=== PATIENT | female | born 1950 | race Caucasian/White ===

== ENCOUNTER 2020-02-12 08:08 | Inpatient (IN) | payer MEDICAID, SELFPAY ==
[2020-02-12] VITALS (32 sets, daily range): BP systolic 136–226; BP diastolic 64–112
[~2020-02-12] VITALS: Ht 162.6 cm; Wt 56.2 kg
--- NOTE | 2020-02-12 08:10 | NUR ---
Pt assessed in lobby and triaged at bedside. Pt has shortness and breathe with labored breathing. MD made aware of pt status.
--- NOTE | 2020-02-12 08:11 | NUR ---
Patient ambulated to bed 2. RN evaluating patient at bedside.
--- NOTE | 2020-02-12 08:11 | NUR ---
Pt triaged by me without proper PPE. Simple Mask and Gloves were worn.
--- NOTE | 2020-02-12 08:14 | NUR ---
Dr. Ramsey is evaluating the patient at bedside.
--- NOTE | 2020-02-12 08:15 | NUR ---
Respiratory therapist is evaluating the patient at bedside.
--- NOTE | 2020-02-12 08:19 | NUR ---
PT TO ER BED 2. KRISTAL FRYE PPE-SIMPLE MASK AND GLOVES, PT IN SIMPLE MASK.
[2020-02-12] MEDS ORDERED: ALBUTEROL HFA MDI 90 MCG/ACTUATION 8 GM INH ONE (08:20)
--- NOTE | 2020-02-12 08:25 | NUR ---
SECOND IV ESTABLISHED, 18 G LAC
--- NOTE | 2020-02-12 08:27 | NUR ---
BLOOD SENT TO LAB, 2 BLOOD FOR C&S SENT TO LAB, COVID-SWAB/INFUL/RVS DONE-SENT TO LAB.
--- NOTE | 2020-02-12 08:35 | NUR ---
EKG PERFORMED AT BEDSIDE
--- NOTE | 2020-02-12 08:45 | NUR ---
Chao samayoa in ED - 02/12/20 at 1356 by MEDRJJ PT TO ER BED 2. KRISTAL FRYE PPE-SIMPLE MASK AND GLOVES, PT IN SIMPLE MASK.
--- NOTE | 2020-02-12 08:46 | NUR ---
Shortness of breathe since yesterday with cough and runny nose. Pt O2 saturation at 59% on room air. MD made aware.Pt awake , alert, afibrile , ambulatory with steady gait , sce , decrease bs blf.cold clammy skin . Allergies: Unattainable Med hx: DM and HTN
[2020-02-12 08:50] LABS: BASOPHILS # (AUTO) 0.1 K/uL (0.00-0.22); EOSINOPHILS # (AUTO) 0.2 K/uL (0-0.4); EOSINOPHILS % (AUTO) 2.8 % (0.0-4.0); HEMATOCRIT 32.9 % (36-48); HEMOGLOBIN 10.8 g/dL (12.0-16.0); LYMPHOCYTES % (AUTO) 28.2 % (20.5-51.1); MEAN CORPUSCULAR HEMOGLOBIN 29 pg (27-31); MEAN CORPUSCULAR HGB CONC 33 g/dL (33-37); MONOCYTES # (AUTO) 0.4 K/uL (0.8-1.0); MONOCYTES % (AUTO) 5.9 % (1.7-9.3); NEUTROPHILS # (AUTO) 4.4 K/uL (1.8-7.7); NEUTROPHILS % (AUTO) 62.1 % (42.2-75.2); PLATELET COUNT (AUTO) 243 K/uL (140-450); RED BLOOD CELL COUNT(AUTO) 3.78 MIL/uL (4.20-5.40); RED CELL DISTRIBUTION WIDTH 13.7 % (11.6-13.7); WHITE BLOOD COUNT (AUTO) 7.1 K/uL (4.8-10.8)
[2020-02-12] MEDS ORDERED: ASPIRIN 81 MG TAB.CHEW PO ONE (08:55)
[2020-02-12] MEDS ORDERED: NITROGLYCERIN 2% 1 GM PKT TP ONE (08:55)
--- NOTE | 2020-02-12 08:55 | NUR ---
RT LUCINDA PUT PT BACK ON NRB 100%
--- NOTE | 2020-02-12 08:55 | NUR ---
rt at bedside .
[2020-02-12 09:01] LABS: ANION GAP 13.1 (8-16); C-REACTIVE PROTEIN QUANT 0.2 mg/dL (0.0-0.9); CARBON DIOXIDE 26.9 mmol/L (21-32); CREATININE 2.2 mg/dL (0.6-1.3)
[2020-02-12] MEDS ORDERED: cefTRIAXone 1,000 MG VIAL ONE (09:03)
[2020-02-12 09:06] LABS: LACTATE DEHYDROGENASE 291 U/L (81-234)
[2020-02-12 09:07] LABS: ALBUMIN 2.8 g/dL (3.4-5.0); TOTAL BILIRUBIN 0.6 mg/dL (0.0-1.0)
--- NOTE | 2020-02-12 09:10 | NUR ---
PT WAS PLACED ON BIPAP DUE TO NOT TOLERATING NRB AND O2 SAT OF 85% SETTINGS 10/5 RR16 FIO2 100% ALARMS ON AND AUDIBLE AND AMBU BAG AT SIDE OF BIPAP AND BIPAP IS PLUGGED INTO RED OUTLET, B\S ARE WHEEZING BILATERALLY. INFORMED ABOUT PLACING PT ON BIPAP
[2020-02-12 09:17] LABS: PROTHROMBIN TIME 9.6 secs (10.8-13.4)
[2020-02-12 09:28] LABS: RSV NEGATIVE (NEGATIVE)
[2020-02-12] MEDS ORDERED: FUROSEMIDE 40 MG/4 ML VIAL IVP SCH (09:35)
[2020-02-12] MEDS ORDERED: FUROSEMIDE 20 MG/2 ML VIAL IVP ONE (09:39)
--- NOTE | 2020-02-12 09:52 | NUR ---
fc inserted by michelle borden hot metal charger jeni informed and aware.
[2020-02-12 10:08] LABS: APPEARANCE,URINE CLEAR (CLEAR); BILIRUBIN,URINE NEGATIVE (NEGATIVE); BLOOD, URINE 2+ (NEGATIVE); COLOR,URINE YELLOW (YELLOW); LEUKOCYTE ESTERASE ,URINE NEGATIVE (NEGATIVE); NITRITE, URINE NEGATIVE (NEGATIVE); PH,URINE 5.5 (5.0-9.0); UGLUCOSE 1+ (NEGATIVE)
[2020-02-12] MEDS ORDERED: HYDROcodone/APAP 5/325 MG 1 TAB TAB PO PRN (10:10)
[2020-02-12] MEDS ORDERED: DOCUSATE SODIUM 100 MG GELCAP PO PRN (10:10)
[2020-02-12] MEDS ORDERED: ONDANSETRON 4 MG/2 ML VIAL IM/IVP PRN (10:10)
[2020-02-12] MEDS ORDERED: LORazepam 2 MG/ML VIAL IM/IVP PRN (10:10)
--- NOTE | 2020-02-12 10:10 | NUR ---
dr calhoun informed and aware for initial drain fo fc insertion which is at 200ml.
[2020-02-12] MEDS ORDERED: ALBUTEROL HFA MDI 90 MCG/ACTUATION 8 GM INH PRN (10:15)
--- NOTE | 2020-02-12 10:15 | NUR ---
dr calhoun at bedside reevaluating pt.
[2020-02-12] MEDS ORDERED: hydrALAZINE 20 MG/ML VIAL IVP PRN (10:40)
[2020-02-12 10:45] LABS: RBC,URINE NONE SEEN /HPF (0-5); WBC,URINE NONE SEEN /HPF (0-5)
[2020-02-12] MEDS ORDERED: FUROSEMIDE 20 MG/2 ML VIAL IVP SCH ×2 (10:49→21:00)
--- NOTE | 2020-02-12 11:06 | NUR ---
labs at bedside.
--- NOTE | 2020-02-12 11:47 | NUR ---
DISCHARGE PLANNING: THIS IS A 69 Y/O FEMALE PATIENT FROM HOME, WHO CAME IN DUE TO SLIGHT COUGH, RUNNY NOSE, CHEST PAIN AND SHORTNESS OF BREATH. PAST MEDICAL HISTORY INCLUDE DIABETES AND HYPERTENSION. INITIAL DIAGNOSIS OF ACUTE RESPIRATORY FAILURE. CURRENT LABS INCLUDE WBC 7.1, H/H 10.8/32.9, NA/K 141/4.0, BUN/CREA 50/2.2 AND LACTIC ACID 3.5. NEGATIVE FOR INF A AND B. RSV ANTIGEN NEGATIVE. COVID 19 PENDING. URINE AND BLOOD CS PENDING. CXR ON ADMISSION SHOWED CARDIOMEGALY WITH PULMONARY VASCULAR CONGESTION AND INTERSTITIAL EDEMA, SUSPECTED TRACE RIGHT PLEURAL EFFUSION. ON ROCEPHIN. CARDIO AND PULMO CONSULTS IN PLACE - NOT SEEN YET. DC PLAN PENDING ON PATIENT'S RESPONSE TO TREATMENT. Addendum: 02/13/20 at 1313 by Ximena Mckeon STILL IN ICU. ON OXYMIZER AT 4LPM, O2 SAT 93%. CURRENT LABS INCLUDE WBC 8.4, H/H 9.9/29.3, NA/K 142/3.7, BUN/CREA 50/2.0 AND ANION GAP 16.1. POSITIVE FOR COVID 19. ON AZITHROMYCIN, LASIX IV AND INSULIN SLIDING SCALE. PULMO, CARDIO, ID AND NEPHRO CONSULTS IN PLACE. DC PLAN PENDING ON PATIENT'S RESPONSE TO TREATMENT. Addendum: 02/17/20 at 1608 by Ximena Mckeon CM STILL IN ICU. ON HIGH FLOW O2, FIO2 70%. O2 SAT 95%. CURRENT LABS INCLUDE WBC 10.5, H/H 8.7/25.6, NA/K 133/4.0, BUN/CREA 85/3.8 AND ALB 1.8. ON ROCEPHIN AND SOLU MEDROL. CARDIO, PULMO, ID, SURGICAL AND NEPHRO CONSULTS IN PLACE. HAD HD YESTERDAY. DC PLAN PENDING ON PATIENT'S RESPONSE TO TREATMENT. Addendum: 02/19/20 at 0858 by Ximena Mckeon CM ORALLY INTUBATED, FIO2 40%, O2 SAT 100%. SEDATED WITH MORPHINE AND VERSED. CURRENT LABS INCLUDE WBC 12.7, H/H 10.6/31.9, NA/K 133/4.0. BUN/CREA 110/3.9 AND TROP 0.180. COVID POSITIVE. ON ROCEPHIN. HAD DIALYSIS YESTERDAY. PULMO, NEPHRO, CARDIO AND ID CONSULTS IN PLACE. DC PLAN PENDING ON PATIENT'S RESPONSE TO TREATMENT. Addendum: 02/21/20 at 1544 by Ximena Mckeon CM STILL IN ICU. ORALLY INTUBATED TO VENT, FIO2 45%, O2 SAT 88%. SEDATED WITH MIDAZOLAM AND MORPHINE DRIP. ON DOPAMINE DRIP, BP 100/55. CURRENT LABS INCLUDE WBC 13.8, H/H 8.7/26.6, NA/K 131/3.7, BUN/CRE 117/5.5 AND ALB 1.7. ON ROCEPHIN. PULMO, NEPHRO, CARDIO AND ID IN PLACE. FOR HD TODAY. DC PLAN PENDING ON PATIENT'S RESPONSE TO TREATMENT. Addendum: 02/24/20 at 0903 by Ximena Mckeon CM STILL IN ICU. ORALLY INTUBATED FIO2 45%, O2 SAT 94%. SEDATED WITH VERSED AND MORPHINE DRIPS. ON HEPARIN DRIP. CURRENT LABS INCLUDE WBC 19.9, H/H 8.6/26.1, NA/K 133/3.2 AND BUN/CREA 68/4.3 AND ALB 1.4. CURRENT CXR SHOWED NEW/WORSENED LOWER LUNG CONSOLIDATION. ON LEVAQUIN. CARDIO, GI, SURGERY, ID PULMO AND NEPHRO CONSULTS INN PLACE. DC PLAN PENDING ON PATIENT'S RESPONSE TO TREATMENT. Addendum: 02/25/20 at 0955 by Ximena Mckeon CM STILL IN ICU. ORALLY INTUBATED TO VENT FIO2 55%, O2 SAT 92%. SEDATED WITH MORPHINE AND VERSED. CURRENT LABS INCLUDE WBC 16.3, H/H 8.3/24.7, NA/K 134/3.8, BUN/CREA 94/5.7 AND ALB 1.2. D DIMER 2230. ON HEPARIN DRIP APTT 63.3. ON SOLU MEDROL, FLUCONAZOLE AND LEVOFLOXACIN. CURRENT CX SHOWED NO SIGNIFICANT CHANGE IN THE RIGHT INFILTRATE BUT WORSENING LEFT INFILTRATES. PRONING DONE LAST NIGHT, TOLERATED WELL. CARDIO, PULMO, ID, NEPHRO, SURGICAL AND GI CONSULTS IN PLACE. DC PLAN PENDING ON PATIENT'S RESPONSE TO TREATMENT. Addendum: 02/26/20 at 1128 by Ximena Mckeon CM STILL IN ICU. ORALLY INTUBATED, FIO2 50%-O2 SAT 98%. SEDATED WITH VERSED AND MORPHINE DRIPS. CURRENT LABS INCLUDE WBC 18.8, H/H 8.5/25.9, NA/K 139/4.4, BUN/CREA 75/4.6, C REACTIVE PROTEIN 31.5 AND ALB 1.3. D DIMER 2310, PTT 59.9. ON FLUCONAZOLE, SOLU MEDROL AND LEVOFLOXACIN. CURRENT CXR SHOWED BILATERAL INFILTRATES UNCHANGED. PULMO, CARDIO, ID, NEPHRO AND SURGICAL CONSULTS IN PLACE. HAD HD YESTERDAY. DC PLAN PENDING ON PATIENT'S RESPONSE TO TREATMENT. Addendum: 02/27/20 at 1023 by Ximena Mckeon ETT TO VENT, FIO2 60%, O2 SAT 98%. SEDATED WITH VERSED AND MORPHINE. CURRENT ;ABS INCLUDE WBC 18.2, H/H 7.9/24.6, NA/K 137/4.8, BUN/CREA 140/6.0, ALB 1.3, CRP 11.4 AND LACTIC ACID 2.2. D DIMER 1660. GLU 583-ON LANTUS. ON HEPARIN DRIP-APTT 49.7. ON SOLU MEDROL, LEVOFLOXACIN, FLUCONAZOLE, PROTONIX. CURRENT CXR SHOWED NO SIGNIFICANT INTERVAL CHANGE IN DIFFUSE INTERSTITIAL EDEMA, INFILTRATE OR ARDS. PERSISTENT SUPERIMPOSED PERIHILAR AND BIBASILAR AIRSPACE EDEMA VS INFILTRATE. SUSPECTED TRACE LEFT PLEURAL EFFUSION. SEEN BY NEPHRO - HD TODAY. CARDIO, GI, SURGERY, ID PULMO AND NEPHRO CONSULTS IN PLACE. DC PLANNING PENDING ON PATIENT'S RESPONSE TO TREATMENT. Addendum: 02/28/20 at 1338 by Ximena Mckeon STILL ORALLY INTUBATED, FIO2 70%-O2 SAT 98%. STILL SEDATED WITH VERSED AND MORPHINE DRIPS. CURRENT LABS INCLUDE WBC 21.9, H/H 7.3/22.5, NA/K 140/3.4, BUN/CREA 98/4.0, PHOS/MAG 1.5/1.5, ALB 1.3, D DIMER 1010 AND APTT 66.1 ON HEPARIN DRIP. ON FLUCONAZOLE AND LEVOFLOXACIN. CURRENT CXR SHOWED INCREASING BILATERAL INFILTRATES. PULMO, CARDIO, ID, NEPHRO AND SURGICAL CONSULTS IN PLACE. DC PLAN PENDING ON PATIENT'S RESPONSE TO TREATMENT. 1130: CONTACTED PATIENT'S DAUGHTER SARAHY HARRY AT [phone] TO DISCUSS CODE STATUS, SHE STATED SHE WANTED EVERYTHING TO DONE. DR. FRAIRE MADE AWARE. Addendum: 03/02/20 at 1633 by Karuna Shen DC PLANNING: DR FARLEY CANCELED TUNNELED CATH PLACEMENT DUE TO ELEVATED WBC 13.7 COUNT 2 UNITS PRBC GIVEN , H/H 10.3/30.9 PRONE POSITION . ABDOMINAL US SHOWED CHOLELITHIASIS WITHOUT SONOGRAPHIC EVIDENCE OF ACUTE CHOLECYSTITIS . CONTINUE IV ABX LEVAQUIN AND WOUND CARE . DC PLAN PER RECOMMENDATIONS CM TO FOLLOW Addendum: 03/03/20 at 1002 by Ximena Mckeon STILL IN ICU, ORALLY INTUBATED. ETT TO VENT FIO2 70%, O2 SAT 96%. SEDATED WITH PROPOFOL. CURRENT LABS INCLUDE WBC 16.2, H/H 10.0/30, NA/K 138/3.9, BUN/CREA 129/6.4, MAG 2.5 AND ALB 3.1. ON HEPARIN DRIP APTT 57.1. D DIMER >5000. ON LEVAQUIN AND FLUCONAZOLE. PENDING AGUILAR PLACEMENT BY DR. FARLEY. GAURAV PLAN PENDING ON PATIENT'S RESPONSE TO TREATMENT. Addendum: 03/04/20 at 1017 by Ximena Mckeon CM STILL IN ICU. ORALLY INTUBATED TO VENT FIO2 70%, O2 SAT 98%. SEDATED WITH PROPOFOL. CURRENT LABS INCLUDE WBC 16.4, H/H10.1/30.5, NA/K 139/3.5, BUN/CREA 79/4.4 AND ALB 1.5. APTT 89.3 AND D DIMER 4970. RECEIVED CONVALESCENT PLASMA TRANSFUSION LAST NIGHT. FOR HD CATH PLACEMENT TODAY BY DR. FARLEY. DC PLAN PENDING ON PATIENT'S RESPONSE TO TREATMENT. Addendum: 03/05/20 at 1017 by Ximena Mckeon CM STILL IN ICU. ORALLY INTUBATED TO VENT, FIO2 80%, O2 SAT 94%. SEDATED WITH PROPOFOL. CURRENT LABS INCLUDE WBC 14.1, H/H 10.8/32.2, NA/K 137/3.9, BUN/CREA 33/2.6 AND ALB 1.5. ON HEPARIN RESTARTED TODAY - APTT 89.3 AND D DIMER >5000. SEEN BY NEPHRO - JOSE CARLOS DUE TO ATN, NO RENAL RECOVERY OF YET, WILL NEED DIALYSIS TOMORROW. SEEN BY ID - TO CONTINUE CURRENT ANTIBIOTIC, PENDING REPEAT CS. SEEN BY PULMO - TO CONTINUE MECHANICAL VENTILATOR SUPPORT. NEGATIVE FOR STOOL OCCULT BLOOD. SPUTUM CS PENDING. DC PLAN PENDING ON PATIENT'S RESPONSE TO TREATMENT. Addendum: 03/06/20 at 0901 by Ximena Mckeon STILL IN ICU. ORALLY INTUBATED, FIO2 80%, O2 94%. SEDATED WITH PROPOFOL DRIP. CURRENT LABS INCLUDE WBC 16.8, H/H 10.6/32.4, NA/K 137/4.2, 59/4.0 AND ALB 1.5. D DIMER >5000 AND APTT 61.3. ON HEPARIN DRIP. ON ZOSYN. SEEN BY NEPHRO - FOR DIALYSIS TODAY. SEEN BY PULMO - CONTINUE PRONING. SEEN BY ID - PROGNOSIS REMAINS GUARDED. Addendum: 03/08/20 at 1353 by Ximena Mckeon PER DR. ADAMS, CODE STATUS HAVE BEEN DISCUSSED WITH THE DAUGHTER. HOWEVER PATIENT'S DAUGHTER HAVE NOT DECIDED YET AND WILL DISCUSS WITH HER SIBLINGS AND WILL LET US KNOW. Addendum: 03/09/20 at 0916 by Ximena Mckeon STILL IN ICU. ORALLY INTUBATED TO VENT, FIO2 50% AND O2 94%. SEDATED WITH PROPOFOL DRIP. CURRENT LABS INCLUDE WBC 11.3, H/H 9.1/27.4, NA/K 127/5.2, BUN/CREA 93/5.6, PHOS 10.5, D DIMER 3510-ON HEPARIN DRIP. ON ZOSYN, METHYLPREDNISOLONE. FOR HD TODAY. Addendum: 03/10/20 at 1455 by Johanna Johnson CM Patient discussed during multidisciplinary rounds. Pt remains intubated/sedated, blood pressure is high; family still needs to decide between trach/PEG and withdrawal of care. 14:30 - Rcd call to pt's daughter, Sarahy Harry, to follow-up. Dtr is German speaking; had a lengthy conversation with daughter about the situation. MARY CARMEN/HOLLI addressed all questions asked by daughter, provide supportive listening and validated her feelings and concerns. Dtr stated this was very unexpected and the family is not ready to let the patient go therefore they have agreed for trach and PEG. Dtr was informed the pt will need subacute placement after procedures; dtr is agreeable. KIMBERLEY provided contact info should she have any further questions. EVELIN Minor Ext [phone] Addendum: 03/17/20 at 1123 by Ximena Mckeon CM STILL IN ICU. ORALLY INTUBATED, FIO2 65%, O2 SAT 94%. CURRENT LABS INCLUDE WBC 25.0, H/H 8.8/25.9, NA/K 136/3.7, BUN/CREA 80/3.2 AND ALB 1.5. COVID PCR TESTING PENDING. E COLI OF THE URINE. STILL ON METHYLPREDNISOLONE, MEROPENEM AND VANCOMYCIN. ON CPAP TRIAL. SEEN BY KEV-WILL POSSIBLE TRACH PENDING COVID PCR RESULTS. Addendum: 03/18/20 at 1042 by Ximena Mckeon CM ORALLY INTUBATED TO VENT, FIO2 50%, O2 SAT 93%. CURRENT LABS INCLUDE WBC 21.3, H/H 7.5/22.7, NA/K 136/4.1, BUN/CREA 150/4.5, ALB 1.5. ON METHYLPREDNISOLONE, MEROPENEM AND VANCOMYCIN. FOR HD TODAY. COVID TEST REMAINS POSITIVE ON 03/17. DC PLAN PENDING ON PATIENT'S RESPONSE TO TREATMENT. Addendum: 03/19/20 at 1144 by Ximena Mckeon CM REMAINS ORALLY INTUBATED TO VENT, FIO2 50%, O2 SAT 93%. KEV RECOMMENDED TRACH AND PEG PLACEMENT AT THIS TIME DUE TO O2 SUPPORT AT FIO2 50%. Addendum: 03/20/20 at 1132 by Ximena Mckeon CM S/P TRACHEOSTOMY AND PEG PLACEMENT 03/19/[address] PLUMMER STARTED ON TUBE FEEDING. Addendum: 03/20/20 at 1424 by Ximena Mckeon LATE ENTRY: RECEIVED AN ORDER FOR [facility]. [facility] MADE AWARE. REFERRAL SENT TO WILL. 5129: RECEIVED A CALL FROM [facility] STATING THAT THEY DO NOT ACCEPT MEDICAL PATIENT'S AT THIS TIME. DR. FRAIRE MADE AWARE. Addendum: 03/23/20 at 1101 by Ximena Mckeon CM TRACH TO VENT, FIO2 55%, O2 SAT 99%. CURRENT LABS INCLUDE WBC 20.2, H/H 6.8/20.6, NA/K 136/3.2 AND CRP 3.5. ON MEROPENEM, VANCOMYCIN AND SOLU MEDROL. ON BILATERAL SOFT WRIST RESTRAINTS. CONTACTED [facility] AT [phone], NO ANSWER. LEFT MESSAGE. Addendum: 03/23/20 at 1223 by Ximena Mckeon CM RECEIVED A CALL BACK FROM [facility], STATING THAT THEY ONLY ACCEPT PATIENTS FROM [facility]. HOWEVER, SHE WILL REACH OUT TO THEIR DON AND WILL GET BACK TO ME ONCE SHE RECEIVE ANY INFO. CONTACTED [facility] [phone], ABLE TO SPEAK TO DERICK ELIDA. SHE STATED THAT THEY DO NOT ACCEPT VENT PATIENTS. Addendum: 03/23/20 at 1503 by Ximena Mckeon PER [facility], UNABLE TO ACCEPT STRAIGHT MEDICAL PATIENTS, ONLY WITH ETT AND NOT WITH TRACH. PER LEYDI PAIZ, THEY DO NOT HAVE A SUB ACUTE. PER [facility], NOT ACCEPTING COVID POSITIVE PATIENTS. Addendum: 03/23/20 at 1558 by Ximena Mckeon PER AMANDA [facility]ICIO [facility], THEY ARE NOT ABLE TO ACCEPT COVID POSITIVE PATIENTS. PER JONATHAN [facility]ICIO [facility], NO SUBACUTE BED AT THIS TIME. PER CONCHIS MAURICIO [facility], SHE WILL REACH OUT TO THEIR SISTER FACILITY IF CAN ACCEPT COVID POSITIVE PATIENTS. Addendum: 03/23/20 at 1621 by Ximena Mckeon CM PER CONCHIS [facility], NO COVID BEDS IN THEIR SUB ACUTE. PER RAJWINDER CHURCH AND VERNA GREGORY, SHE WILL CHECK WITH THEIR SISTER FACILITY [place] IF THEY ARE ABLE TO ACCEPT COVID POSITIVE PATIENT HOWEVER THEY HAVE A WAITING LIST. PER KELLY [facility], THEY ARE NOT ACCEPTING COVID POSITIVE PATIENTS. BUT WILL REACH OUT TO THER SISTER FACILITY. PER CRISTIANE WYMAN, THEY ARE NOT COVID FACILITY. Addendum: 03/24/20 at 1355 by Ximena Mckeon CM PER RAJWINDER CHURCH AND VERNA GREGORY, NO SUB ACUTE BED AT THEIR SISTER FACILITY IN [place]. Addendum: 03/25/20 at 1136 by Ximena Mckeon CM PER PHILIP, HE WILL FOLLOW UP WITH PATIENT'S DAUGHTER TO SEE IF PATIENT CAN QUALIFY FOR PRUCOL DEPENDING ON HER CITIZENSHIP/RESIDENCE STATUS. WILL FOLLOW UP. Addendum: 03/27/20 at 0839 by Ximena Mckeon CM PER PHILIP, HE WAS ABLE TO GET A HOLD OF THE PATIENT'S DAUGHTER SARAHY AND WILL BE SENDING HER OVER [place] TODAY. Addendum: 03/30/20 at 1021 by Ximena Mckeon TRACH TO VENT, FIO2 50%, O2 SAT 95%. CURRENT LABS INCLUDE WBC 23.7, H/H 7.7/23.4, NA/K 134/5.0, BUN/CREA 83/2.5. ON ZOSYN. ID, NEPHRO, PULMO, CARDIO AND SURGICAL CONSULTS IN PLACE. Addendum: 04/01/20 at 1018 by Ximena Mckeon TRACH TO VENT, FIO2 40%, O2 SAT 96%. CURRENT LABS INCLUDE WBC 20.8, H/H 7.7/23.5, NA/K 137/5.1, BUN/CREA 115/2.9, ALB 1.6 AND D DIMER 2220. ON ZOSYN, VANCOMYCIN, PROTONIX. ON INSULIN SLIDING SCALE GLU 148. SEEN BY ID - CONT CURRENT THERAPY. Addendum: 04/02/20 at 0848 by Ximena Mckeon CM CONTACTED PATIENT'S DAUGHTER SARAHY HARRY AT [phone] WITH [employer] TR[employer] DRIVER MANA [id number], NO ANSWER. LEFT MESSAGE REGARDING MEDICAL APPLICATION. Addendum: 04/03/20 at 1523 by Coleen Cooper FAXED PATIENTS CLINICALS TO [facility]. [facility] CAN NOT ACCEPT PATIENTL. [facility] WILL REVIEW CASE AND CONTACT ME. ALEX AT [facility] STATED THAT ON THE WEEKENDS THEY DO NOT HAVE STAFF WORKING IN ADMISSIONS. Addendum: 04/06/20 at 1132 by Karuna Shen CM DC PLANNING: PT HAS AN ORDER FOR MRI OF THE BRAIN FAXED TO [facility] SPOKE WITH QUILTING MACHINE HELPER BREANA TOLEDO PT'S CONDITION. CLARIFIED WITH DR ALCALA THAT IF PT IS STABLE FOR TRANSFER. PER DR ALCALA PT IS NOT STABLE FOR TRANSFER AND HOLD ON THE MRI AND WILL ORDER CT OF THE HEAD. CM TO FOLLOW Addendum: 04/07/20 at 1216 by Ximena Mckeon CM DISCUSSED DURING BED HUDDLE TO HOLD OFF ON THE MRI ORDER FOR NOW, DOC WILL SPEAK TO THE FAMILY REGARDING CODE STATUS. WILL FOLLOW UP. Addendum: 04/07/20 at 1628 by Ximena Mckeon CM RECEIVED A CALL FROM DR. ALCALA, STATING THAT PER DR. MARK PATIENT NEEDS AN MRI OF THE BRAIN WITHOUT CONTRAST TO R/O STROKE. HE STATED HE IS NOT ABLE TO GET A HOLD OF THE PATIENT'S DAUGHTER. CONTACTED [facility] AT [phone], ABLE TO SPEAK TO JACQUIE. SHE STATED SHE WILL REACH OUT TO THEIR MRI AND WILL CALL ME BACK. PER KISHORE PARTS PRODUCT ANALYST AT [phone], SHE WILL CHECK WITH MRI AND WILL CALL ME BACK. RECEIVED A CALL FROM JACQUIE OF [facility], STATING THAT THEIR MRI IS FULLY BOOKED UNTIL March. RECEIVED A CALL FROM [facility] [phone], STATING THAT THEIR TECH WILL NOT BE AVAILABLE UNTIL March. CONTACTED HAYDEE, ABLE TO SPEAK TO CAIN BO. SHE STATED SHE HAD TO TRANSFER ME TO RADIOLOGY DEPT. CALL GOT CUT OFF. CALLED THEM BACK, CALL WAS NUMBER [phone] IN THE CUE. PER TRENT LENTZ, HE SPOKE TO [facility] BLANKET MAKER. PER VALDEMAR PATIENT HAS TO BE TESTED FOR COVID 72 HOURS PRIOR TO THE PROCEDURE. SHE ALSO PROVIDED TRENT LENTZ THEIR FAX NUMBER [phone] TO SEND ORDER. ORDER SENT. Addendum: 04/08/20 at 0856 by Ximena Mckeon CM CONTACTED PATIENT'S DAUGHTER SARAHY HARRY AT [phone] WITH THE HELP OF LANGUAGE HELP RE[employer]IGERATED NATIONAL TRUCK DRIVER NAA #[id number], NO ANSWER. LEFT MESSAGE. Addendum: 04/08/20 at 1623 by Ximena Mckeon CM PER DR. ALCALA, HE WAS ABLE TO SPEAK TO THE PATIENT'S DAUGHTER SARAHY AND SHE STILL WANTS EVERYTHING DONE. CONTACTED VALDEMAR, BLANKET MAKER AT [facility] [phone]. SHE CONFIRMED THAT THEY RECEIVED THE REFERRAL AND IS WORKING ON SETTING UP THE DATE AND TIME. SHE IS REQUESTING TO UPDATE THE ORDER SPECIFYING THE SITE, NEGATIVE COVID TEST 72 HOURS PRIOR TO THE PROCEDURE, NAME AND CONTACT INFO OF THE PERSON WHO WILL BE SIGNING THE CONSENT AND WILL BE FAXING ME OVER MRI QUESTIONNAIRE. PROVIDED HER WITH PATIENT'S DAUGHTER SARAHY HARRY'S CONTACT INFO AND OUR FAX NUMBER TO SEND THE QUESTIONNAIRE. DR. ALCALA MADE AWARE. CONTACTED PATIENT'S DAUGHTER SARAHY HARRY, NO ANSWER. LEFT A MESSAGE THAT I WILL BE CALLING HER BACK TOMORROW AT 1100. RECEIVED THE QUESTIONNAIRE FROM [facility], SENT IT TO ICU NURSE TO FILL OUT. RECEIVED A CALL FROM [facility], REQUESTING FOR AUTH TO DO MRI. ADMIN MADE AWARE AND GOT APPROVAL. [facility] MADE AWARE, SHE STATED SHE WILL CHECK OF THEY HAVE A TECH AVAILABLE. RECEIVED A CALL FROM [facility], RADIOLOGY. STATING THAT SHE SPOKE THEIR DIRECTOR AND THEY DO NO HAVE A TECH AT ALL. SHE RECOMMENDED TO CHECK WITH ROGERS CHAVEZ OR DORIS PABON. REACHED OUT TO MCCLOUD KATHY AT [phone] AND ASKED TO BE TRANSFERRED TO RADIOLOGY, ABLE TO SPEAK TO FAUSTO. HE STATED THEIR POSITION CLERK AND THEIR MARKETING CONSULTANT ARE NOT AVAILABLE AT THE MOMENT DUE TO FLEXED HOURS AND TO CALL BACK AGAIN TOMORROW. WILL FOLLOW UP. Addendum: 04/09/20 at 0856 by Ximena Mckeon CM CONTACTED ROGERS CHAVEZ AT [phone] AND REQUESTED TO BE TRANSFERRED TO RADIOLOGY DEPT. ABLE TO SPEAK TO TONEY. I ASKED HER IF THEY HAVE [facility] 15/05. SHE STATED THEY ONLY HAVE IT MON-MON [id number]. I ALSO INQUIRED REGARDING COVID TESTING, IF THEY REQUIRE 2 NEGATIVES PRIOR TO THE PROCEDURE. SHE STATED SHE IS NOT AWARE OF THAT BUT WILL DOUBLE CHECK WITH THE QUILTING MACHINE HELPER AND WILL CALL ME BACK. Addendum: 04/09/20 at 0900 by Ximena Mckeon CM CONTACTED VALDEMAR [facility] AT [phone] TO FOLLOW UP ON THE REFERRAL FOR MRI, NO ANSWER. LEFT MESSAGE. WILL FOLLOW UP. Addendum: 04/09/20 at 0910 by Ximena Mckeon CM DISCUSSED PLAN FOR MRI WITH DR ALCALA, HE STATED PATIENT IS NOT STABLE FOR FOR MRI AT THIS TIME DUE TO HYPOGLYCEMIA. WILL FOLLOW UP. Addendum: 04/10/20 at 0920 by Ximena Mckeon CM LATE ENTRY FOR 04/09/2020: RECEIVED A CALL FROM [facility] BLANKET MAKER FROM [facility], REQUESTING THE ORDER FOR MRI. INFORMED HER THAT I SENT IT OVER 04/08/2020. SHE STATED SHE DID NOT GET IT, SHE ONLY GOT THE MRI QUESTIONNAIRE. INFORMED HER THAT I WILL BE SENDING IT OVER AGAIN. I ALSO INFORMED HER THAT PATIENT IS NOT STABLE FOR TRANSFER AT THIS TIME. SHE STATED TO UPDATE HER IN THE MORNING. RECEIVED A CALL FROM [employer] AT [place], INQUIRING ABOUT THE PATIENT. INFORMED HIM THAT PATIENT IS TRACH TO VENT, ON SENIOR COST ESTIMATOR, NOT ON ANY DRIPS. HE STATED PATIENT NEEDS TO BE OFF SENIOR COST ESTIMATOR FOR AT LEAST 20 MINS DURING THE PROCEDURE SINCE THEIR MACHINE IS NOT QUIPPED WITH IT. INFORMED HIM THAT IT WILL NOT BE POSSIBLE FOR THE PATIENT TO BE OFF MONITOR. HE STATED TO CALL HIM TOMORROW FOR ANY UPDATES. DR. ALCALA MADE AWARE. Addendum: 04/10/20 at 1028 by Ximena Mckeon CM DISCUSSED DURING BED HUDDLE, MRI ORDER WILL BE CANCELLED. Addendum: 04/13/20 at 1146 by Ximena Mckeon CM REACHED OUT TO [facility], REGARDING [facility] EVAL. UNFORTUNATELY THEY ARE NOT ABLE TO ACCEPT MEDI-JUANITA PATIENTS. Addendum: 04/13/20 at 1638 by Ximena Mckeon CONTACTED KELLY [facility]ICIO [facility], I ASKED HER IF THEY ARE ABLE TO ACCEPT PATIENT WHO IS FORMERLY COVID POSITIVE AND NOW TESTED NEGATIVE 2X. SHE STATED THEY DO NOT HAVE FEMALE BEDS AVAILABLE UNTIL April, HOWEVER SHE ASKED TO SEND OVER REFERRAL SO THEY CAN REVIEW. CONTACTED SUDHIR ADMISSIONS AT [facility]. HE STATED THEY DO NOT HAVE BEDS AVAILABLE AT THIS TIME HOWEVER THEY CAN REVIEW REFERRAL. HE PROVIDED ME WITH FAX NUMBER [phone] TO SEND REFERRAL. REFERRAL SENT TO THE FOLLOWING SUBACUTE FACILITIES: [facility] WILL FOLLOW UP.
--- NOTE | 2020-02-12 12:00 | NUR ---
Patient will be admitted to care of dr barreto. Admited to icu . Will go to room 08. Belongings list completed. Report to michelle shafer.
--- NOTE | 2020-02-12 12:00 | NUR ---
ADMITTED FROM ER THIS 69 YR. OLD FEMALE PER [place] ACCOMPANIED BY ER NURSES WITH CC OF SOB, COUGHING AND CHEST PAINS. PATIENT IS AWAKE, ALERT AND ORIENTED. UPPER SORBIAN SPEAKING. VERONIQUE ANY PAINS NOR SOB AT THIS TIME. NO COUGHING NOTED. PLACED ON CORE DIPPER. IN SR WITHOUT ECTOPICS. ON BIPAP, 11/01, RATE 16/MIN, FI02 80%. 0 SAT 100%. HOB ELEVATED SEMI FOWLERS POSITION. HEPLOCK G 20 ANGIO ON RT AC FLUSHED, PATENT AND HEPLOCK LEFT AC G 18, FLUSHED, PATENT. SITES CLEAR. PERRY CATH. INTACT AND PATENT DRAINING TO CLEAR YELLOW URINE.
--- NOTE | 2020-02-12 12:03 | NUR ---
BP 216/103 HYDRALAZINE 5 MG IVP GIVEN.
[2020-02-12] MEDS ORDERED: LABETALOL 100 MG/20 ML VIAL IV SCH ×2 (12:35→16:57)
[2020-02-12] MEDS ORDERED: DEXTROSE 50% 50 ML SYR IVP PRN (12:50)
[2020-02-12] MEDS ORDERED: LOSA50TA66 PO (13:16)
[2020-02-12] MEDS ORDERED: METF-336 PO (13:16)
--- NOTE | 2020-02-12 13:30 | NUR ---
PT'S DAUGHTER SELEN HERE. STAYED OUTSIDE THE ROOM TO VISIT. UPDATED ON PT'S CONDITION. (DAUGHTER SPEAKS ENGLISH MAINLY BUT UNDERSTANDS SOME BENGALI).
--- NOTE | 2020-02-12 13:30 | NUR ---
BP 184/72.
--- NOTE | 2020-02-12 14:00 | NUR ---
02 SAT 100%. BIPAP SAME SETTINGS. ABLE TO REPOSITION SELF IN BED WITH MINIMAL ASSIST.
[2020-02-12] MEDS ORDERED: amLODIPine 5 MG TAB PO SCH (15:00)
--- NOTE | 2020-02-12 16:00 | NUR ---
BP 202/74. DR. DESHPANDE AWARE.
[2020-02-12] MEDS: BLOOD GLUCOSE MONITORING 1 DEV DEV FS SCH ×2 (16:44→21:00)
--- NOTE | 2020-02-12 16:45 | NUR ---
VQ SCAN AT BEDSIDE.
[2020-02-12] MEDS ORDERED: hydrALAZINE 25 MG TAB PO SCH (17:10)
[2020-02-12 17:14] LABS: ANION GAP 10.2 (8-16); CARBON DIOXIDE 28.1 mmol/L (21-32); POTASSIUM 3.3 mmol/L (3.5-5.1)
--- NOTE | 2020-02-12 17:30 | NUR ---
BP 187/77 TRANDATE 20 MG IVP GIVEN SLOWLY.
--- NOTE | 2020-02-12 17:45 | NUR ---
BP 193/80, HYDRALAZINE 50 MG PO GIVEN.
--- NOTE | 2020-02-12 18:00 | NUR ---
BP 181/71. PT. DENIES ANY DISCOMFORTS, NO SOB, WATCHING TV. BIPAP 11/01, RATE 16/MIN, FI02 80%.
--- NOTE | 2020-02-12 18:45 | NUR ---
DR. SWANSON HERE TO SEE AND EXAMINE PT.
[2020-02-12 18:58] LABS: CHOL/HDL RATIO 3.8 (1-4.5); MAGNESIUM 1.9 mg/dL (1.8-2.4); PHOSPHORUS 3.8 mg/dL (2.5-4.9)
--- NOTE | 2020-02-12 19:17 | NUR ---
REPORT GIVEN TO KRISTAL LINARES.
--- NOTE | 2020-02-12 19:18 | NUR ---
REPORT RECEIVED FROM CANDE GIRALDO AT BEDSIDE. PT IN STABLE CONDITION. AAOX4. PT WITHIN A NORMAL MENTAL STATE. NO COMPLAINTS OF PAIN. NO SOB ON BIPAP. AFEBRILE@98.5. PT HAS PERRY. PT IS AMBULATORY. IV SITE L AC 18G SL PATENT AND INTACT. R AC 20G SL PATENT AND INTACT. PT ON 1.5L FLUID RESTRICTION. SKIN WARM, DRY, AND INTACT WITH NO OPEN WOUNDS. BED LOCKED IN LOW POSITION. CALL JIMENES WITHIN REACH. SAFETY PRECAUTION IN PLACE. ALL NEEDS MET AT THIS TIME.
[2020-02-12 19:19] LABS: FREE T4 (FREE THYROXINE) 0.86 ng/dL (0.76-1.46); THYROID STIMULATING HORMONE 5.8 uIU/mL (0.34-3.74)
--- NOTE | 2020-02-12 19:40 | NUR ---
pt taken off bipap at 1940. pt is now on oxymizer at 7 liters. pt is alert and orientated. pt sats well on the oxymizer. will cont to monitor
--- NOTE | 2020-02-12 20:10 | NUR ---
TAKEN PATIENT TO RADIOLOGY FOR CT OF THE HEAD. PT PUT ON MONITOR. ON 7L O2 VIA OXYMIZER.
[2020-02-12] MEDS ORDERED: POTASSIUM CHLORIDE 10 MEQ TABER PO SCH (20:25)
[2020-02-12] MEDS ORDERED: METOPROLOL 25 MG TAB PO SCH (21:00)
[2020-02-12] MEDS: FUROSEMIDE 40 MG/4 ML VIAL IVP SCH (21:02)
[2020-02-12] MEDS: hydrALAZINE 25 MG TAB PO SCH (21:02)
--- NOTE | 2020-02-12 21:02 | NUR ---
APRESOLINE, COREG, KDUR, AND LIPITOR GIVEN PO. LASIX GIVEN IVP. HEPARIN GIVEN SUBQ. BS 124. NO INSULIN COVERAGE NEEDED.
[2020-02-12] MEDS: carvediloL 12.5 MG TAB PO SCH (21:03)
[2020-02-12] MEDS: ATORVASTATIN 20 MG TAB PO SCH (21:03)
--- NOTE | 2020-02-12 22:30 | NUR ---
PT O2 REDUCED FROM 7L TO 4L. PT SATURATION@100%. WILL CONTINUE TO MONITOR.
[2020-02-13] VITALS (8 sets, daily range): BP systolic 143–179; BP diastolic 63–87
--- NOTE | 2020-02-13 01:15 | NUR ---
PT SLEEPING COMFORTABLY BUT AROUSABLE. NO S/S OF DISTRESS NOTED. WILL CONTINUE TO MONITOR.
--- NOTE | 2020-02-13 03:00 | NUR ---
PT SLEEPING COMFORTABLY. NO S/S OF DISTRESS NOTED. NO COMPLAINTS OF PAIN. NO SOB ON 4L OXYMIZER. AFEBRILE. WILL CONTINUE TO MONITOR.
[2020-02-13] MEDS: hydrALAZINE 25 MG TAB PO SCH ×3 (04:04→21:10)
--- NOTE | 2020-02-13 04:04 | NUR ---
HYDRALAZINE GIVEN PO. PT TOLERATED WELL.
[2020-02-13] MEDS: BLOOD GLUCOSE MONITORING 1 DEV DEV FS SCH ×4 (06:14→21:09)
--- NOTE | 2020-02-13 06:14 | NUR ---
BS 142. NO INSULIN COVERAGE NEEDED.
[2020-02-13 06:15] LABS: BASOPHILS % (AUTO) 0.5 % (0.0-2.0); HEMATOCRIT 29.3 % (36-48); HEMOGLOBIN 9.9 g/dL (12.0-16.0); LYMPHOCYTES # (AUTO) 0.8 K/uL (2.5-16.5); MEAN CORPUSCULAR HEMOGLOBIN 29 pg (27-31); MEAN CORPUSCULAR HGB CONC 34 g/dL (33-37); MEAN CORPUSCULAR VOLUME 85.5 fL (80-94); MONOCYTES # (AUTO) 0.6 K/uL (0.8-1.0); MONOCYTES % (AUTO) 7.7 % (1.7-9.3); NEUTROPHILS # (AUTO) 6.9 K/uL (1.8-7.7); NEUTROPHILS % (AUTO) 81.8 % (42.2-75.2); PLATELET COUNT (AUTO) 209 K/uL (140-450); RED BLOOD CELL COUNT(AUTO) 3.43 MIL/uL (4.20-5.40); RED CELL DISTRIBUTION WIDTH 13.7 % (11.6-13.7); WHITE BLOOD COUNT (AUTO) 8.4 K/uL (4.8-10.8)
--- NOTE | 2020-02-13 07:07 | NUR ---
PT IS CURRENTLY ON 4L OXYMIZER. SPO2 97 HR 80. PT SHOWS NO SIGN OF DISTRESS AT THIS TIME. WILL CONTINUE TO MONITOR.
[2020-02-13 07:28] LABS: ANION GAP 16.1 (8-16); CARBON DIOXIDE 23.6 mmol/L (21-32); POTASSIUM 3.7 mmol/L (3.5-5.1)
--- NOTE | 2020-02-13 07:30 | NUR ---
RECEIVED BEDSIDE REPORT FROM INTERMEDIATE MANAGER NURSE, PT IS AAOX4, VINCENTIAN SPEAKING ONLY, ABLE TO FOLLOW COMMANDS AND MAKE NEEDS KNOWN, VSS, DENIES PAIN, NO S/S OF DISTRESS, CLEAR LUNG SOUNDS JUANPABLO. ON OXYMIZER AT 4L, O2 SAT AT 94 %, DENIES CHEST PAIN, SR ON [employer] SALES MERCHANDISER, CAP REFILL <2 SEC, NO EDEMA PRESENT, SOFT ABDOMEN WITH ACTIVE BOWEL SOUNDS, PERRY CATHETER IN PLACE WITH CLEAR YELLOW URINE VIA GRAVITY, ABLE TO MOVE ALL EXTREMITAS, SKIN IS WARM AND DRY TO TOUCH, IV TO LEFT AC, 22GA, PATENT AND SL. HOB ELEVATED TO 30 DEGREES, SAFETY MEASURES IN PLACE, CALL LIGHT WITHIN REACH, WILL CONTINUE TO MONITOR.
--- NOTE | 2020-02-13 08:45 | NUR ---
SCHEDULED MEDICATION GIVEN, PATIENT IS ABLE TO TAKE WHOLE MEDICATION AND NO PROBLEM WITH SWALLOW.
[2020-02-13] MEDS: amLODIPine 5 MG TAB PO SCH (08:49)
[2020-02-13] MEDS: ECOTRIN 81 MG TABEC PO SCH (08:49)
[2020-02-13] MEDS: carvediloL 12.5 MG TAB PO SCH ×2 (08:49→21:11)
[2020-02-13] MEDS: FUROSEMIDE 40 MG/4 ML VIAL IVP SCH ×2 (08:49→21:10)
--- NOTE | 2020-02-13 08:59 | NUR ---
PATIENT HAS BEEN SCREENED AND CATEGORIZED HIGH NUTRITION RISK. PATIENT WILL BE SEEN WITHIN 1-2 DAYS OF ADMISSION. 02/13/[address]
--- NOTE | 2020-02-13 09:20 | NUR ---
Heat And Frost Insulator Note: Basic Screen: Yes High Risk DC Screen [place]: DENNYS HARRY Home Relationship: DAUGHTER Pre-Admission Living Arrangements: Lives with Other Prior ADL Independent Current Home Health Name/Tel: N/A Current DME/02 Name/Tel: N/A Current Hospice Name/Tel: N/A Current Dialysis Name/Tel: N/A Healthcare Decision Maker: Patient Advance Directive No Physician Orders for Life Sustaining Treatment Form No Patient/Family Have Educational Needs No Discipline: Case Mgt/Social Svcs Tentative Discharge Plan/Destination: No Needs Identified Will require assistance post discharge: No Referred to Cold Rolling Supervisor: No Tentative Discharge Plan Summary: Patient is a 69-year-old female amditted for acute respiratory failure. Patient has PMHX of diabetes mellitis, hypertension, and possible CHF. Patient was admitted from home where she lives with her daughter and granddaughter. SW contacted Dennys Harry [phone] to verify demographics. Dennys was Khmer-speaking and allowed granddaughter of patient, Danna Harry to speak on her behalf. Per Danna, patient is alert/oriented at baseline and is completely independent with all ADLs. Danna reported no history of mental health and no substance abuse history. SW assessed for risk factors but none were apparent. Tentative discharge plan is for patient to return home. No further needs identified. Signature: CIPRIANO Arthur Date: Feb 13, 2020 Time: 09:06
--- NOTE | 2020-02-13 11:00 | NUR ---
DR. SWANSON CAME IN TO SEE PATIENT AT BEDSIDE, UPDATED PATIENT CONDITION, WILL FOLLOW UP WITH NEW ORDERS.
[2020-02-13] MEDS ORDERED: hePARIN / DEXT 5% PREMIX 250 ML IV SCH (11:20)
[2020-02-13] MEDS ORDERED: HEPARIN PER PHARMACY MC PRN (11:20)
[2020-02-13] MEDS: INSULIN LISPRO SLIDING SCALE 100 UNITS/ML VIAL SUBQ PRN ×2 (11:26→21:16)
[2020-02-13] MEDS ORDERED: HYDROXYCHLOROQUINE 200 MG TAB PO SCH ×2 (12:00→22:00)
[2020-02-13] MEDS ORDERED: AZITHROMYCIN 250 MG TAB PO SCH (12:00)
--- NOTE | 2020-02-13 12:00 | NUR ---
PT IS RESTING IN BED, NO S/S OF DISTRESS, SELF REPOSITION IN BED, SIT UP FOR LUNCH, CALL LIGHT WITHIN REACH, WILL CONTINUE TO MONITOR.
--- NOTE | 2020-02-13 12:20 | NUR ---
INSTRUCTED PT ON INCENTIVE SPIROMETRY.PERFORMED 10 TIMES, 500 MAX EFFORT. INSTRUCTED ON SPUTUM SAMPLE, LEFT SAMPLE CUP AT BEDSIDE. PT VERBALIZES UNDERSTANDING. WILL CONTINUE TO MONITOR.
--- NOTE | 2020-02-13 12:47 | NUR ---
DR. BERTRAND CAME IN TO SEE PATIENT AT BEDSIDE, UPDATED PATIENT CONDITION, WILL FOLLOW UP WITH NEW ORDERS.
--- NOTE | 2020-02-13 14:01 | NUR ---
02/13/20 RD INITIAL ASSESSMENT COMPLETED PLEASE REFER TO NUTRITION ASSESSMENT UNDER CARE ACTIVITY FOR ESTIMATED NUTRITIONAL NEEDS. 1. RECOMMEND CCHO 60GM AND CARDIAC DIET TOLERATED 2. IF PO INTAKE <50% CONSIDER ADDING ENSURE MAX ONCE DAILY -THIS WILL PROVIDE AN ADDITIONAL 150 CALORIES AND [address] OF [address] RD TO FOLLOW-UP 2-3 DAYS, HIGH RISK RITU OG, RD
--- NOTE | 2020-02-13 14:45 | NUR ---
TRANSFERRED PATIENT TO ROOM 114 VIA BED, REPORT GIVEN TO KRISTAL HOLLAND AT BEDSIDE, PT IS IN STABLE CONDITION, ALL BELONGINGS GOES WITH PATIENT, NO ACCIDENT OCCUR.
--- NOTE | 2020-02-13 14:45 | NUR ---
RECEIVED PT FROM ICU VIA GURNEY, PT IS ON 4LPM OXYMIZER. WITH PERRY CATHETER. PT IS ALERT AND AWAKE. IV SITES IN PLACE INTACT AND PATENT.SAFETY MEASURES IN PLACE CALL LIGHT WITHIN REACH AND WILL CONTINUE TO MONITOR.
--- NOTE | 2020-02-13 16:30 | NUR ---
BLOOD GLUCOSE MONITORING DONE AND MEDICATIONS DUE GIVEN. PT IS STABLE SAFETY MEASURES IN PLACE.WILL CONTINUE TO MONITOE.
--- NOTE | 2020-02-13 17:30 | NUR ---
PT IS STABLE AND EATING. WILL CONTINUE TO MONITOR.
--- NOTE | 2020-02-13 19:10 | NUR ---
ENDORSED PT TO NIGHT NURSE. PT IS STABLE.
--- NOTE | 2020-02-13 19:30 | NUR ---
RECEIVED REPORT FROM DAY SHIFT NURSE. PATIENT IN BED RESTING. AWAKE AND ABLE TO MAKE NEEDS KNOWN. O2 4LPM/OXIMIZER IN PLACE. IV ACCESS ON R AND L AC CLEAN AND INTACT. FC DRAINING WELL. DENIES ANY PAIN OR DISCOMFORT AT THIS TIME. RESPIRATIONS EVEN AND UNLABORED. SAFETY MEASURES IN PLACE. WILL CONTINUE TO MONITOR.
[2020-02-13] MEDS ORDERED: LOVENOX 1MG/KG Q12H SUBQ SCH (21:00)
[2020-02-13] MEDS: ATORVASTATIN 20 MG TAB PO SCH (21:11)
[2020-02-13] MEDS: HYDROXYCHLOROQUINE 200 MG TAB PO SCH (21:12)
[2020-02-13] MEDS: ENOXAPARIN 80 MG/0.8 ML SYR SUBQ SCH (21:14)
--- NOTE | 2020-02-13 21:15 | NUR ---
VITAL SIGNS ARE STABLE. SCHEDULED MEDICATIONS GIVEN. BLOOD SUGAR TAKEN. COVERAGE GIVEN ORDERED. PATIENT DENIES ANY PAIN OR DISCOMFORT AT THIS TIME. O2 4LPM/OXIMIZER IN PLACE. RESPIRATIONS EVEN AND UNLABORED. O2 SAT 93%. SAFETY MEASURES IN PLACE. CALL LIGHT WITHIN REACH. PATIENT KEPT COMFORTABLE. WILL CONTINUE TO MONITOR.
[2020-02-14] VITALS: BP 131/56
--- NOTE | 2020-02-14 00:09 | NUR ---
PATIENT RESTING. VITAL SIGNS STABLE. O2 IN PLACE. RESPIRATIONS EVEN AND UNLABORED. DENIES ANY PAIN OR DISCOMFORT AT THIS TIME. SAFETY MEASURES IN PLACE. CALL LIGHT WITHIN REACH. KEPT COMFORTABLE. WILL CONTINUE TO MONITOR.
--- NOTE | 2020-02-14 01:53 | NUR ---
ROUNDS DONE. PATIENT SLEEPING. NO S/SX OF DISTRESS. WILL CONTINUE TO MONITOR.
[2020-02-14 04:00] VITALS: BP 129/58
--- NOTE | 2020-02-14 04:11 | NUR ---
ASLEEP. NO S/SX OF DISTRESS NOTED. RESPIRATIONS EVEN AND UNLABORED. PATIENT KEPT SAFE AND COMFORTABLE. WILL CONTINUE TO MONITOR.
[2020-02-14] MEDS: hydrALAZINE 25 MG TAB PO SCH ×3 (05:57→21:22)
[2020-02-14 06:07] LABS: HEPATITIS A ANTIBODY IGM Negative (Negative); HEPATITIS B CORE AB TOTAL Negative (Negative); HEPATITIS B SURFACE ANTIBODY Non Reactive (.); HEPATITIS B SURFACE ANTIGEN Negative (Negative)
[2020-02-14] MEDS: BLOOD GLUCOSE MONITORING 1 DEV DEV FS SCH ×4 (06:11→21:19)
--- NOTE | 2020-02-14 06:12 | NUR ---
VITAL SIGNS STABLE. SCHEDULED MEDS GIVEN. BLOOD SUGAR TAKEN. NO COVERAGE NEEDED. DENIES ANY PAIN OR DISCOMFORT. SAFETY MEASURES IN PLACE. WILL CONTINUE TO MONITOR.
--- NOTE | 2020-02-14 07:15 | NUR ---
ENDORSED TO DAYSHIFT NURSE FOR CONTINUITY OF CARE. PATIENT IN STABLE CONDITION.
--- NOTE | 2020-02-14 07:20 | NUR ---
RECEIVED BEDSIDE REPORT FROM NIGHTSHIFT NURSE. PT RESTING IN BED UPON ARRIVAL. RESPIRATIONS EVEN AND UNLABORED WITH NO SOB OR RESPIRATORY DISTRESS. SKIN WARM AND DRY TO TOUCH. IV SITE IN RAC 20G AND LAC 22G IS CLEAN, DRY, AND INTACT. SAFETY MEASURES IN PLACE. WILL CONTINUE TO MONITOR
[2020-02-14 07:49] LABS: ALBUMIN 2.3 g/dL (3.4-5.0); ANION GAP 13.7 (8-16); CARBON DIOXIDE 24.7 mmol/L (21-32); CREATININE 2.8 mg/dL (0.6-1.3); POTASSIUM 3.4 mmol/L (3.5-5.1); TOTAL BILIRUBIN 0.7 mg/dL (0.0-1.0)
[2020-02-14 08:00] VITALS: BP 150/75
[2020-02-14 08:06] LABS: BASOPHILS % (AUTO) 0.2 % (0.0-2.0); HEMATOCRIT 25.7 % (36-48); HEMOGLOBIN 8.6 g/dL (12.0-16.0); LYMPHOCYTES # (AUTO) 0.6 K/uL (2.5-16.5); LYMPHOCYTES % (AUTO) 5.6 % (20.5-51.1); MEAN CORPUSCULAR HEMOGLOBIN 29 pg (27-31); MEAN CORPUSCULAR HGB CONC 34 g/dL (33-37); MEAN CORPUSCULAR VOLUME 85.7 fL (80-94); MONOCYTES # (AUTO) 0.7 K/uL (0.8-1.0); MONOCYTES % (AUTO) 7.1 % (1.7-9.3); NEUTROPHILS # (AUTO) 8.7 K/uL (1.8-7.7); NEUTROPHILS % (AUTO) 87.1 % (42.2-75.2); PLATELET COUNT (AUTO) 181 K/uL (140-450); RED CELL DISTRIBUTION WIDTH 13.6 % (11.6-13.7)
[2020-02-14] MEDS: CLINICAL MONITORING MC SCH (08:44)
[2020-02-14] MEDS: HYDROXYCHLOROQUINE 200 MG TAB PO SCH (08:52)
[2020-02-14] MEDS: amLODIPine 5 MG TAB PO SCH (08:53)
[2020-02-14] MEDS: ECOTRIN 81 MG TABEC PO SCH (08:53)
[2020-02-14] MEDS: carvediloL 12.5 MG TAB PO SCH ×2 (08:54→21:21)
[2020-02-14] MEDS ORDERED: HYDROXYCHLOROQUINE 200 MG TAB PO SCH (09:00)
[2020-02-14] MEDS ORDERED: AZITHROMYCIN 250 MG TAB PO SCH (09:00)
[2020-02-14] MEDS: ASCORBIC ACID 500 MG TAB PO SCH (09:06)
[2020-02-14] MEDS: ZINC SULF 220 MG CAP PO SCH (09:06)
--- NOTE | 2020-02-14 09:07 | NUR ---
ADMINISTERED SCHED MED PRESCRIBED PER MD ORDER. PT TOLERATED WELL. MEDICATION EDUCATION PERFORMED. PT VERBALIZED UNDERSTANDING. SAFETY MEASURE IN PLACE. WILL CONTINUE TO MONITOR
--- NOTE | 2020-02-14 11:30 | NUR ---
PT BLOOD SUGAR IS 165. INSULIN WILL BE GIVEN WITH LUNCH PRESCRIBED PER MD ORDER. SAFETY MEASURES IN PLACE. WILL CONTINUE TO MONITOR
[2020-02-14 12:00] VITALS: BP 135/72
[2020-02-14] MEDS: INSULIN LISPRO SLIDING SCALE 100 UNITS/ML VIAL SUBQ PRN ×2 (12:42→17:45)
--- NOTE | 2020-02-14 12:43 | NUR ---
ADMINISTERED SCHED MED PRESCRIBED PER MD ORDER. PT TOLERATED WELL. MEDICATION EDUCATION PERFORMED. PT VERBALIZED UNDERSTANDING. SAFETY MEASURE IN PLACE. WILL CONTINUE TO MONITOR
--- NOTE | 2020-02-14 14:34 | NUR ---
HOURLY ROUNDING. PT RESTING IN BED UPON ARRIVAL. ABLE TO MAKE NEEDS KNOWN. RESPIRATIONS EVEN AND UNLABORED WITH NO SOB OR RESPIRATORY DISTRESS. SKIN WARM AND DRY TO TOUCH. SAFETY MEASURES IN PLACE. WILL CONTINUE TO MONITOR
[2020-02-14 16:00] VITALS: BP 127/63
--- NOTE | 2020-02-14 16:30 | NUR ---
PT BLOOD SUGAR IS 185. INSULIN WILL BE GIVEN WITH DINNER PRESCRIBED PER MD ORDER. SAFETY MEASURES IN PLACE. WILL CONTINUE TO MONITOR
[2020-02-14] MEDS: ACETAMINOPHEN 325 MG TAB PO PRN (17:48)
--- NOTE | 2020-02-14 17:48 | NUR ---
ADMINISTERED SCHED MED PRESCRIBED PER MD ORDER. ADMINISTERED TYLENOL PER PT COMPLAINING OF MILD HEADACHE. PRN TYLENOL ADMINISTERED PRESCRIBED PER MD ORDER. PT TOLERATED WELL. MEDICATION EDUCATION PERFORMED. PT VERBALIZED UNDERSTANDING. SAFETY MEASURE IN PLACE. WILL CONTINUE TO MONITOR
--- NOTE | 2020-02-14 19:21 | NUR ---
ENDORSED AT BEDSIDE TO NIGHTSHIFT NURSE. PT IS STABLE
--- NOTE | 2020-02-14 19:25 | NUR ---
RECEIVED FROM AM RN IN BED SLEEPING. ISOLATION PRECAUTIONS OBSERVED. WILL CONTINUE WITH CURRENT CARE PLANS /CARE FOR THE NIGHT. CALL LIGHT WITH IN REACH. NO REPORTED FEVER BY AM RN.
[2020-02-14 20:00] VITALS: BP 137/73
--- NOTE | 2020-02-14 21:00 | NUR ---
BLOOD SUGAR FOR 2100 PER FINGERSTICK IS 139 MG/DL. NO INSULIN COVERAGE DONE. RE-ORIENTED TO CALL LIGHT USE. DENIES ANY DOLOR AT THIS TIME. ENCOURAGED TO USE CALL LIGHT FOR ANY HELP SHE MAY NEED OR IF IN PAIN. ISOLATION PRECAUTION OBSERVED FOR COVID 19.
[2020-02-14] MEDS: ENOXAPARIN 80 MG/0.8 ML SYR SUBQ SCH (21:20)
[2020-02-14] MEDS: ATORVASTATIN 20 MG TAB PO SCH (21:21)
--- NOTE | 2020-02-14 23:46 | NUR ---
ENDORSED TO ANOTHER RN FOR CONTINUITY OF CARE.
--- NOTE | 2020-02-14 23:47 | NUR ---
RECEIVED REPORT FROM STU GIRALDO. PATIENT IN STABLE CONDITION.
[2020-02-15] VITALS: BP 110/53
--- NOTE | 2020-02-15 00:36 | NUR ---
VITAL SIGNS STABLE. PATIENT RESTING. WITH O2IN PLACE. RESPIRATIONS EVEN AND UNLABORED. DENIES ANY PAIN OR DISCOMFORT. WATER GIVEN REQUESTED. SAFETY MEASURES IN PLACE. CALL LIGHT WITHIN REACH. WILL CONTINUE TO MONITOR.
[2020-02-15 04:00] VITALS: BP 124/58
--- NOTE | 2020-02-15 04:35 | NUR ---
VITAL SIGNS TAKEN. O2 SAT 88. O2 INCREASED TO 8LPM. O2 INCREASED TO 91%. SCHEDULED MEDICATIONS GIVEN ORDERED. DENIES ANY PAIN OR DISCOMFORT. SAFETY MEASURES IN PLACE. CALL LIGHT WITHIN REACH. WILL CONTINUE TO MONITOR.
[2020-02-15] MEDS: hydrALAZINE 25 MG TAB PO SCH ×3 (05:01→20:33)
[2020-02-15] MEDS ORDERED: POTASSIUM CHLORIDE 10 MEQ TABER PO ONE (05:15)
[2020-02-15] MEDS: BLOOD GLUCOSE MONITORING 1 DEV DEV FS SCH ×4 (05:21→20:33)
[2020-02-15] MEDS: INSULIN LISPRO SLIDING SCALE 100 UNITS/ML VIAL SUBQ PRN ×3 (05:23→16:21)
--- NOTE | 2020-02-15 07:05 | NUR ---
ENDORSED TO DAYSHIFT NURSE FOR CONTINUITY OF CARE. PATIENT IN STABLE CONDITION.
--- NOTE | 2020-02-15 07:07 | NUR ---
RECEIVED PATIENT FROM SUBSTATION OPERATOR TRANSFORMING NURSE FOR CONTINUITY OF CARE.PATIENT IS CURRENTLY SLEEPING AT THIS TIME. NO SIGNS OF DISTRESS NOTED. RESPIRATIONS EVEN AND UNLABORED. ON 8LOXIMIZER. VISIBLE CHEST RISE AND FALL NOTED. ON TELE MONITORING. ABDOMEN SOFT AND NONTENDER. SKIN WARM, DRY, AND INTACT. IV IN THE L AC G22, SALINE LOCK. IV IN THE RIGHT AC G20 RUNNING NS AT 5 ML/HR. NO SIGNS OF IV INFILTRATION. PATIENT IS AMBULATORY. ON DROPLET PRECAUTION FOR COVID-19. ON STRICT I&O WITH 1.5L FLUID RESTRICTION PER DAY. HAS PERRY CATHETER WITH YELLOW URINE IN THE BAG. BED IN LOW POSITION. CALL LIGHT IS WITHIN REACH. WILL CONTINUE TO MONITOR.
[2020-02-15 07:43] LABS: BASOPHILS % (AUTO) 0.1 % (0.0-2.0); HEMATOCRIT 24.4 % (36-48); HEMOGLOBIN 8.4 g/dL (12.0-16.0); LYMPHOCYTES # (AUTO) 0.5 K/uL (2.5-16.5); LYMPHOCYTES % (AUTO) 5.6 % (20.5-51.1); MEAN CORPUSCULAR HEMOGLOBIN 29 pg (27-31); MEAN CORPUSCULAR HGB CONC 35 g/dL (33-37); MEAN CORPUSCULAR VOLUME 85.2 fL (80-94); MONOCYTES # (AUTO) 0.3 K/uL (0.8-1.0); MONOCYTES % (AUTO) 3.9 % (1.7-9.3); NEUTROPHILS % (AUTO) 90.4 % (42.2-75.2); PLATELET COUNT (AUTO) 163 K/uL (140-450); RED BLOOD CELL COUNT(AUTO) 2.86 MIL/uL (4.20-5.40); RED CELL DISTRIBUTION WIDTH 13.8 % (11.6-13.7); WHITE BLOOD COUNT (AUTO) 8.8 K/uL (4.8-10.8)
[2020-02-15 07:58] LABS: ALBUMIN 2.2 g/dL (3.4-5.0); ANION GAP 15.4 (8-16); CARBON DIOXIDE 22.4 mmol/L (21-32); POTASSIUM 3.8 mmol/L (3.5-5.1); TOTAL BILIRUBIN 0.4 mg/dL (0.0-1.0)
[2020-02-15 08:00] VITALS: BP 127/52
[2020-02-15 08:30] LABS: CREATININE 4.1 mg/dL (0.6-1.3)
[2020-02-15] MEDS: ZINC SULF 220 MG CAP PO SCH (08:36)
[2020-02-15] MEDS: ECOTRIN 81 MG TABEC PO SCH (08:36)
--- NOTE | 2020-02-15 08:36 | NUR ---
GIVEN MORNING MEDICATION PO. HELD COREG FOR HR 52. GIVEN MEDICATION EDUCATION. BED IN LOW POSITION. CALL LIGHT IS WITHIN REACH. WILL CONTINUE TO MONITOR.
[2020-02-15] MEDS: ASCORBIC ACID 500 MG TAB PO SCH (08:37)
[2020-02-15] MEDS: amLODIPine 5 MG TAB PO SCH (08:38)
[2020-02-15] MEDS: carvediloL 12.5 MG TAB PO SCH ×2 (08:38→20:17)
[2020-02-15] MEDS ORDERED: HYDROXYCHLOROQUINE 200 MG TAB PO SCH (09:00)
[2020-02-15] MEDS ORDERED: FUROSEMIDE 20 MG/2 ML VIAL IVP SCH (09:00)
[2020-02-15] MEDS: CLINICAL MONITORING MC SCH (09:25)
--- NOTE | 2020-02-15 10:24 | NUR ---
PATIENT IS SLEEPING COMFORTABLY AT THIS TIME. NO SIGNS OF DISTRESS NOTED. BED IN LOW POSITION. CALL LIGHT IS WITHIN REACH. WILL CONTINUE TO MONITOR.
--- NOTE | 2020-02-15 11:34 | NUR ---
VS CHECKED. VSS. BLOOD SUGAR CHECK: 156. WILL GIVE INSULIN COVERAGE.
[2020-02-15 12:00] VITALS: BP 127/54
--- NOTE | 2020-02-15 12:09 | NUR ---
GIVEN 2 UNITS OF INSULIN FOR BLOOD SUGAR 166. PATIENT TOLERATED WELL. WILL CONTINUE TO MONITOR. Addendum: 02/15/20 at 1214 by Princess Val Loomis RN BLOOD SUGAR OF156
--- NOTE | 2020-02-15 12:55 | NUR ---
HELD 50 MG HYDRALAZINE PER PARAMETERS. BP IS 126/50, HR 72.
[2020-02-15] MEDS ORDERED: NACL 0.9% 1,000 ML IV SCH (14:10)
[2020-02-15] MEDS: NACL 0.45% 1,000 ML IV SCH (14:42)
--- NOTE | 2020-02-15 14:42 | NUR ---
HANG 1/2 NS AT A RATE OF 75 ML/HR PER MD ORDER.
[2020-02-15 16:00] VITALS: BP 133/53
--- NOTE | 2020-02-15 16:16 | NUR ---
BLOOD SUGAR CHECK: 172. WILL GIVE INSULIN COVERAGE.
--- NOTE | 2020-02-15 16:21 | NUR ---
GIVEN 2 UNITS OF INSULIN SUBQ IN THE ABDOMEN FOR BS 173. EXPLAINED MEDICATION. PATIENT TOLERATED WELL
--- NOTE | 2020-02-15 16:53 | NUR ---
HANG ROCEPHIN ORDERED BY . EXPLAINED MEDICATION. BED IN LOW POSITION. CALL LIGHT IS WITHIN REACH. WILL CONTINUE TO MONITOR.
--- NOTE | 2020-02-15 18:19 | NUR ---
PATIENT IS CURRENTLY SLEEPING AT THIS TIME. NO SIGNS OF DISTRESS NOTED. BED IN LOW POSITION. CALL LIGHT IS WITHIN REACH. WILL CONTINUE TO MONITOR.
--- NOTE | 2020-02-15 19:15 | NUR ---
ENDORSED PATIENT TO THE RD MANAGER NURSE FOR CONTINUITY OF CARE. PATIENT IS IN STABLE CONDITION
--- NOTE | 2020-02-15 19:16 | NUR ---
RECEIVED BEDSIDE REPORT FROM DAY RN FOR CONTINUITY OF CARE.PT IS POLISH SPEAKING ONLY. NO SIGNS OF DISTRESS NOTED. RESPIRATIONS EVEN AND UNLABORED. ON 8LOXIMIZER. VISIBLE CHEST RISE AND FALL NOTED. ON TELE MONITORING. ABDOMEN SOFT AND NONTENDER. SKIN WARM, DRY, AND INTACT. IV IN THE L AC G22, SALINE LOCK. IV IN THE RIGHT AC G20 IVF INFUSING PER ORDERS. NO SIGNS OF IV INFILTRATION. PATIENT IS BEDREST. ON DROPLET PRECAUTION FOR COVID-19. ON STRICT I&O WITH 1.5L FLUID RESTRICTION PER DAY. HAS PERRY CATHETER DRAINING CLEAR YELLOW URINE. BED IN LOW POSITION. CALL LIGHT IS WITHIN REACH. WILL CONTINUE TO MONITOR.
[2020-02-15 20:00] VITALS: BP 136/56
[2020-02-15] MEDS: ATORVASTATIN 20 MG TAB PO SCH (20:17)
--- NOTE | 2020-02-15 20:20 | NUR ---
RECEIVED REPORT FROM AM SHIFT. PATIENT SEEN AND ASSESSED. FOUND PATIENT ON 10L OXYMIZER WITH SPO2 OF 84%. PATIENT IS IN RESPIRATORY DISTRESS AT THIS TIME. MDI PRN TX WAS GIVEN AT THIS TIME. 2031 AT [facility] WAS ORDERED AND COMPLETED. RESULTS WERE GIVEN TO DR. GARCIA AND PATIENT WAS PLACED ON NRB AT 15L. WILL CONTINUE TO MONITOR.
--- NOTE | 2020-02-15 20:30 | NUR ---
PATIENT WITH INCREASED WORK OF BREATHING ON 8L OXIMIZER SAT 82%. INCREASED TO 10ML AND CALLED RT. PT STILL SAT 82-85%. EDUCATED PT TO LAY PRONE. MD AWARE ORDER STAT CXR,ABG AND SOLU MEDROL. RT AT BEDSIDE.
[2020-02-15] MEDS: ENOXAPARIN 80 MG/0.8 ML SYR SUBQ SCH (20:33)
[2020-02-15] MEDS ORDERED: ALBUTEROL SULFATE/IPRATROPIU 3 ML SOL IH ONE (20:35)
[2020-02-15] MEDS ORDERED: methylPREDNISolone SS 40 MG/ML VIAL IVP SCH (21:00)
--- NOTE | 2020-02-15 21:30 | NUR ---
PATIENT STILL ON PRONE POSITION AND NOW ON NON REBREATHER MASK AT 15L. STILL HAS INCREASED WORK OF BREATHING SAT 93% RR 24. WILL CONTINUE TO MONITOR.
--- NOTE | 2020-02-15 22:30 | NUR ---
PATIENT WAS CLEANED AND REPOSITION FOR COMFORT. RR 22 SAT 92-93% ON NON REBREATHER MASK 15L. SAFETY MEASURES ARE IN PLACE. WILL CONTINUE TO MONITOR.
[2020-02-16] VITALS (12 sets, daily range): BP systolic 105–148; BP diastolic 44–66
--- NOTE | 2020-02-16 | NUR ---
VITAL SIGNS ARE STABLE. RR 22 95% ON NRM. CALL LIGHT IS WITHIN REACH. WILL CONTINUE TO MONITOR.
--- NOTE | 2020-02-16 02:15 | NUR ---
MADE ROUNDS. PT IS SLEEPING COMFORTABLY IN BED. NO S/S OF DISTRESS. CALL LIGHT IS WITHIN REACH.
[2020-02-16] MEDS: NACL 0.45% 1,000 ML IV SCH (03:21)
--- NOTE | 2020-02-16 04:30 | NUR ---
VITAL SIGNS ARE WITHIN NORMAL LIMITS. HELD RADHA HYDRALAZINE DT DIASTOLIC BP 111/45. ALL NEEDS MET. WILL CONTINUE TO MONITOR.
[2020-02-16] MEDS: hydrALAZINE 25 MG TAB PO SCH ×3 (05:00→21:18)
[2020-02-16] MEDS: INSULIN LISPRO SLIDING SCALE 100 UNITS/ML VIAL SUBQ PRN ×3 (06:18→21:55)
[2020-02-16] MEDS: BLOOD GLUCOSE MONITORING 1 DEV DEV FS SCH ×4 (06:28→21:52)
--- NOTE | 2020-02-16 06:58 | NUR ---
BLOOD SUGAR 167 COVERAGE GIVEN PER SLIDING SCALE. PT O2 ON NR MASK 15L IS AT 98-100%. RR 20 EQUAL AND UNLABORED. PT IS STABLE. WILL ENDORSE TO DAY RN.
--- NOTE | 2020-02-16 07:10 | NUR ---
RECEIVED PATIENT FROM ERECTOR OPERATOR NURSE FOR CONTINUITY OF CARE.PATIENT IS CURRENTLY AWAKE AT THIS TIME. NO SIGNS OF DISTRESS NOTED. RESPIRATIONS EVEN AND UNLABORED. ON 15L NRB MASK. VISIBLE CHEST RISE AND FALL NOTED. ON TELE MONITORING. ABDOMEN SOFT AND NONTENDER. SKIN WARM, DRY, AND INTACT. IV IN THE L AC G22, NS AT 5 ML/HR. NO SIGNS OF IV INFILTRATION. PATIENT IS BEDREST. ON DROPLET PRECAUTION FOR COVID-19. ON STRICT I&O WITH 1.5L FLUID RESTRICTION PER DAY. HAS PERRY CATHETER WITH YELLOW URINE IN THE BAG. BED IN LOW POSITION. CALL LIGHT IS WITHIN REACH. WILL CONTINUE TO MONITOR.
--- NOTE | 2020-02-16 08:14 | NUR ---
GIVEN MORNING MEDICATIONS PO. HELD AMLODIPINE FOR LOW DBP OF 52. GIVEN MEDICATION EDUCATION. PATIENT VERBALIZED UNDERSTANDING. WILL CONTINUE TO MONITOR.
[2020-02-16] MEDS: ZINC SULF 220 MG CAP PO SCH (08:25)
[2020-02-16] MEDS: ASCORBIC ACID 500 MG TAB PO SCH (08:25)
[2020-02-16] MEDS: ECOTRIN 81 MG TABEC PO SCH (08:25)
--- NOTE | 2020-02-16 08:29 | NUR ---
PT REFUSED ABG TO BE TAKEN 8:25. DR. MUNOZ NOTIFIED.
[2020-02-16 08:43] LABS: ALBUMIN 1.9 g/dL (3.4-5.0); ANION GAP 19.8 (8-16); CARBON DIOXIDE 19.5 mmol/L (21-32); POTASSIUM 4.3 mmol/L (3.5-5.1); TOTAL BILIRUBIN 0.4 mg/dL (0.0-1.0)
[2020-02-16 08:50] LABS: CREATININE 4.3 mg/dL (0.6-1.3)
[2020-02-16] MEDS: carvediloL 12.5 MG TAB PO SCH ×2 (08:54→21:22)
[2020-02-16] MEDS: amLODIPine 5 MG TAB PO SCH (08:55)
[2020-02-16 09:00] LABS: MAGNESIUM 2.2 mg/dL (1.8-2.4); PHOSPHORUS 7.5 mg/dL (2.5-4.9)
[2020-02-16] MEDS: CLINICAL MONITORING MC SCH (09:00)
[2020-02-16 09:06] LABS: BASOPHILS % (AUTO) 0.2 % (0.0-2.0); HEMATOCRIT 24.3 % (36-48); HEMOGLOBIN 8.2 g/dL (12.0-16.0); LYMPHOCYTES # (AUTO) 0.4 K/uL (2.5-16.5); MEAN CORPUSCULAR HEMOGLOBIN 29 pg (27-31); MEAN CORPUSCULAR HGB CONC 34 g/dL (33-37); MEAN CORPUSCULAR VOLUME 85.4 fL (80-94); MONOCYTES # (AUTO) 0.2 K/uL (0.8-1.0); MONOCYTES % (AUTO) 1.8 % (1.7-9.3); NEUTROPHILS # (AUTO) 7.9 K/uL (1.8-7.7); PLATELET COUNT (AUTO) 176 K/uL (140-450); RED BLOOD CELL COUNT(AUTO) 2.85 MIL/uL (4.20-5.40); RED CELL DISTRIBUTION WIDTH 13.8 % (11.6-13.7); WHITE BLOOD COUNT (AUTO) 8.4 K/uL (4.8-10.8)
[2020-02-16 10:29] LABS: LYMPHOCYTES % (AUTO) 4.5 % (20.5-51.1); NEUTROPHILS % (AUTO) 93.5 % (42.2-75.2)
--- NOTE | 2020-02-16 10:39 | NUR ---
PATIENT IS IN PRONE POSITION AT THIS TIME PER MD ORDER. O2SAT 97% HR 61. WILL CONTINUE TO MONITOR.
--- NOTE | 2020-02-16 10:56 | NUR ---
DR. QUIROZ MADE ROUNDS. HE STATED THAT PATIENT WILL BE NEEDING DIALYSIS AND POSSIBLY CHRIS CATHETER FOR ACCESS.
--- NOTE | 2020-02-16 11:30 | NUR ---
RECEIVED PT TRANSFER FROM [facility]. PT IN STABLE CONDITION, AAOX4, RESPIRATIONS EVEN AND UNLABORED. NO DISTRESS NOTED, PT DENIES PAIN AT THIS TIME. PT IN PRONE POSITION. SKIN INTACT. IV SITE IN PLACE IN LAC 20G PATENT AND ASYMPTOMATIC SALINE LOCKED. SAFETY MEASURES IN PLACE. CALL LIGHT WITHIN REACH. WILL CONTINUE TO MONITOR.
--- NOTE | 2020-02-16 11:30 | NUR ---
TRANSFERRED PATIENT TO ICU. KRISTAL PRADO RECEIVED THE PATIENT.
[2020-02-16 11:44] LABS: PROTHROMBIN TIME 10.3 secs (10.8-13.4)
--- NOTE | 2020-02-16 12:29 | NUR ---
PT TRANSFERRED FROM 114 TO ICU 1 @ 11:30. TAKEN OFF OF 15L NRB AND PLACED ON HFNC AT 25L FIO2 100% HEATER TEMP 28.1C. PT PLACED IN PRONE POSITION. SAT 98%. WILL CONTINUE TO MONITOR.
--- NOTE | 2020-02-16 12:35 | NUR ---
02/16/20 RD FOLLOW UP COMPLETED PLEASE REFER TO NUTRITION ASSESSMENT UNDER CARE ACTIVITY FOR ESTIMATED NUTRITIONAL NEEDS. 1. RECOMMEND CCHO 60GM AND CARDIAC DIET TOLERATED 2. IF PO INTAKE <50% CONSIDER ADDING ENSURE MAX ONCE DAILY -THIS WILL PROVIDE AN ADDITIONAL 150 CALORIES AND [address] TO FOLLOW-UP 2-3 DAYS, HIGH RISK TERENCE AMBROSIO, RD
--- NOTE | 2020-02-16 12:40 | NUR ---
R FEMORAL ARTERY AGUILAR CATH PLACED FOR HEMODIALYSIS BY DR MADDEN. PT TOLERATED WELL. NO DISTRESS NOTED. WILL CONTINUE TO MONITOR.
--- NOTE | 2020-02-16 14:19 | NUR ---
PT STARTED ON HEMODIALYSIS AT THIS TIME. WILL CONTINUE TO MONITOR.
--- NOTE | 2020-02-16 16:48 | NUR ---
PT CONTINUES RECEIVING HEMODIALYSIS IN STABLE CONDITION. WILL CONTINUE TO MONITOR.
--- NOTE | 2020-02-16 17:43 | NUR ---
PT FINISHED HEMODIALYSIS, NO DISTRESS NOTED, VITAL SIGNS STABLE. 2000ML OUTPUT. WILL CONTINUE TO MONITOR.
--- NOTE | 2020-02-16 18:51 | NUR ---
MEDICATIONS ADMINISTERED PER ORDER. PT TOLERATED WELL, NO DISTRESS NOTED, AFEBRILE. SAFETY MEASURES IN PLACE. WILL CONTINUE TO MONITOR.
--- NOTE | 2020-02-16 19:12 | NUR ---
PT ENDORSED TO GLOBAL MANAGER FOR CONTINUITY OF CARE.
--- NOTE | 2020-02-16 19:15 | NUR ---
RECEIVED PT FROM DAY SHIFT RN, PT IS LIBYAN SPEAKING, PT HAS LEFT AC 22 G PERIPHERAL IV, PERRY CATHETER IS IN PLACE DRAINING CLEAR YELLOW URINE, PT IS ON HIGH FLOW NASAL CANNULA 15L LUNG SOUNDS CRACKLES, S1 AND S2 HEART SOUNDS HEARD WITH PULSES PALPABLE UPPER AND LOWER EXTREMITIES, BOWEL SOUNDS ACTIVE ALL FOUR QUADRANTS, HOB ELEVATED 30 DEGREES PER PROTOCOL, SAFTEY PROTOCOLS IN PLACE WITH BED IN LOWEST POSITION WILL CONTINUE TO MONITOR PT.
--- NOTE | 2020-02-16 20:10 | NUR ---
RECEIVED REPORT FROM AM SHIFT. PATIENT SEEN AND ASSESSED. FOUND PATIENT ON HFNC 25L AND FiO2 OF 80% WITH SPO2 OF 100%. TITRATED FiO2 TO 70%. AUSCULTATION REVEALS COARSE BILATERAL BREATH SOUNDS. PATIENT IS IN NO APPARENT RESPIRATORY DISTRESS AT THIS TIME. PRN TX NOT INDICATED AT THIS MOMENT. WILL CONTINUE TO MONITOR PATIENT.
--- NOTE | 2020-02-16 21:15 | NUR ---
PT MEDS GIVEN, PT TOLERATING MEDICATION WELL WILL CONTINUE TO MONITOR PT
[2020-02-16] MEDS: ATORVASTATIN 20 MG TAB PO SCH (21:17)
[2020-02-16] MEDS: methylPREDNISolone SS 125 MG/2 ML VIAL IVP SCH (21:22)
[2020-02-16] MEDS: ENOXAPARIN 80 MG/0.8 ML SYR SUBQ SCH (21:53)
--- NOTE | 2020-02-16 23:30 | NUR ---
AT APPROXIMATELY 2330 PATIENT WAS SUCCESSFULLY PLACED IN PRONE POSITION. PATIENT IS IN NO RESPIRATORY DISTRESS AT THIS TIME. RN AT BEDSIDE. WILL CONTINUE TO MONITOR PATIENT.
--- NOTE | 2020-02-16 23:35 | NUR ---
PT TURNED TO PRONE POSITION FOR NEXT 12 HOURS, PT IS RESTING COMFORTABLY IN BED WILL CONTINUE TO MONITOR PT
[2020-02-17] VITALS (12 sets, daily range): BP systolic 101–123; BP diastolic 39–73
--- NOTE | 2020-02-17 00:30 | NUR ---
PT RESTING IN BED NO SIGNS OF DISTRESS NOTED AT THIS TIME WILL CONTINUE TO MONITOR
--- NOTE | 2020-02-17 02:30 | NUR ---
PT TURNING IN BED, TRYING TO LAY AT AN ANGLE WHILE REMAINING PRONED, WILL CONTINUE TO MONITOR
[2020-02-17] MEDS: hydrALAZINE 25 MG TAB PO SCH ×3 (05:37→20:30)
--- NOTE | 2020-02-17 05:58 | NUR ---
PT MEDS GIVEN PT ASKED FOR SNACK, PT ALTERNATING BETWEEN PRONE AND AT AN ANGLE PRONED, REMINDED TO LAY PRONE MUCH POSSIBLE
[2020-02-17] MEDS: INSULIN LISPRO SLIDING SCALE 100 UNITS/ML VIAL SUBQ PRN ×4 (06:44→22:02)
[2020-02-17] MEDS: BLOOD GLUCOSE MONITORING 1 DEV DEV FS SCH ×4 (06:44→20:29)
[2020-02-17 06:56] LABS: BASOPHILS % (AUTO) 0.1 % (0.0-2.0); HEMOGLOBIN 8.7 g/dL (12.0-16.0); LYMPHOCYTES # (AUTO) 0.3 K/uL (2.5-16.5); LYMPHOCYTES % (AUTO) 2.6 % (20.5-51.1); NEUTROPHILS # (AUTO) 9.8 K/uL (1.8-7.7)
[2020-02-17 07:04] LABS: HEMATOCRIT 25.6 % (36-48); MEAN CORPUSCULAR HEMOGLOBIN 29 pg (27-31); MEAN CORPUSCULAR HGB CONC 34 g/dL (33-37); MEAN CORPUSCULAR VOLUME 84.5 fL (80-94); MONOCYTES # (AUTO) 0.4 K/uL (0.8-1.0); MONOCYTES % (AUTO) 3.6 % (1.7-9.3); NEUTROPHILS % (AUTO) 93.7 % (42.2-75.2); PLATELET COUNT (AUTO) 209 K/uL (140-450); RED BLOOD CELL COUNT(AUTO) 3.03 MIL/uL (4.20-5.40); RED CELL DISTRIBUTION WIDTH 13.9 % (11.6-13.7); WHITE BLOOD COUNT (AUTO) 10.5 K/uL (4.8-10.8)
--- NOTE | 2020-02-17 07:19 | NUR ---
REPORT GIVEN TO DAY SHIFT RN, PT RESTING IN BED NO SIGNS OF DISTRESS NOTED AT THIS TIME
--- NOTE | 2020-02-17 07:30 | NUR ---
RECEIVED REPORT FROM PM SHIFT NURSE, RN.
[2020-02-17] MEDS: amLODIPine 5 MG TAB PO SCH (09:00)
[2020-02-17] MEDS: carvediloL 12.5 MG TAB PO SCH ×2 (09:00→20:30)
[2020-02-17] MEDS: ECOTRIN 81 MG TABEC PO SCH (09:53)
[2020-02-17] MEDS: ZINC SULF 220 MG CAP PO SCH (09:54)
[2020-02-17] MEDS: ASCORBIC ACID 500 MG TAB PO SCH (09:54)
[2020-02-17 10:38] LABS: ALBUMIN 1.8 g/dL (3.4-5.0); ANION GAP 18.4 (8-16); CARBON DIOXIDE 19.6 mmol/L (21-32); CREATININE 3.8 mg/dL (0.6-1.3); TOTAL BILIRUBIN 0.3 mg/dL (0.0-1.0)
--- NOTE | 2020-02-17 11:30 | NUR ---
[place] BS 251 GIVEN 6 UNITS INSULIN LISPRO PER SLIDING SCALE.
--- NOTE | 2020-02-17 16:00 | NUR ---
CONTINUE HIGH FLOW NASAL CANNULA 30L/PM. ACCUCHECK BS 199, 2 UNITS INSULIN LISPRO .
[2020-02-17] MEDS ORDERED: COMMUNICATION ORDER MC ONE (16:40)
[2020-02-17] MEDS ORDERED: IVERMECTIN 3 MG PO SCH (17:00)
--- NOTE | 2020-02-17 18:00 | NUR ---
ENCOURAGE PRONE POSITION AT LEAST 12HRS A DAY. RT FEMORAL HD CATHETER INTACT AND DRY ( 2L OUT 02/16/20) PROVIDED COMFORT AND SAFETY.
--- NOTE | 2020-02-17 19:30 | NUR ---
RECEIVED PT FROM DAY SHIFT RN, PT RESTING IN BED, PT HAS LEFT FOREARM IV, PT IS TANZANIAN SPEAKING, ON HIGH FLOW NASAL CANNULA, PULSES PALPABLE UPPER AND LOWER EXTREMITIES, LUNG SOUNDS CRACKLES, S1 AND S2 HEART SOUNDS HEARD, PT IS ON CARDIAC DIET, FLUID RESTRICTIONS 1.5L DAILY, AND IS ABLE TO ASSIST WITH MOVING SELF. PT VITALS STABLE WILL CONTINUE TO MONITOR PT
--- NOTE | 2020-02-17 20:05 | NUR ---
RECEIVED REPORT FROM AM SHIFT. PATIENT SEEN AND ASSESSED. FOUND PATIENT ON HFNC 25L AND FiO2 OF 65% WITH SPO2 OF 96%. TITRATED FiO2 TO 60% WITH SPO2 OF 93%. AUSCULTATION REVEALS COARSE BILATERAL BREATH SOUNDS. PATIENT IS IN NO APPARENT RESPIRATORY DISTRESS AT THIS TIME. MDI PRN TX NOT INDICATED AT THIS MOMENT. WILL CONTINUE TO MONITOR PATIENT.
[2020-02-17] MEDS: ATORVASTATIN 20 MG TAB PO SCH (20:29)
[2020-02-17] MEDS: methylPREDNISolone SS 125 MG/2 ML VIAL IVP SCH (20:31)
--- NOTE | 2020-02-17 21:00 | NUR ---
PT MEDS GIVEN PT PLACED PRONE, PT TOLERATING TREATMENT WILL CONTINUE TO MONITOR Addendum: 02/18/20 at 0727 by Alexy Jordan RN PT HAD BM SMALL DARK BROWN COLOR
--- NOTE | 2020-02-17 22:30 | NUR ---
PT LAYING SUPINE ON OWN REFUSES TO LAY PRONE AT THIS TIME WILL TRY AGAIN LATER
[2020-02-18] VITALS (93 sets, daily range): BP systolic 71–164; BP diastolic 46–78
--- NOTE | 2020-02-18 00:30 | NUR ---
PT 02 SATURATION DECREASED TO 86% CHECKED ON PT, PT COMPLAINING OF PAIN, STATING DALOR AND POINTING NEAR HER CHEST, 1 DOSE NORCO GIVEN TO HELP WITH PAIN. PT ALSO DISPLAYS USE OF ACCESSORY MUSCLES TO BREATH, RT SABIANISM CALLED TO BEDSIDE TO EVALUATE PT, PT SWITCHED OVER TO NON REBREATHER AND O2 SATURATION INCREASED TO 91%-92%. WILL CONTINUE TO MONITOR PT.
--- NOTE | 2020-02-18 00:35 | NUR ---
CALLED TO BEDSIDE DUE TO PATIENT DESATURATING. FiO2 ON HFNC WAS TITRATED UP WITHOUT ANY IMPROVEMENT IN SPO2. MDI TX WAS GIVEN FOR SOB. PATIENT SPO2 STILL REMAINS IN 80s. SWITCHED PATIENT FROM HFNC TO NRB AND SPO2 INCREASED TO 92%-95%. DR. ALCALA WAS NOTIFIED. WILL CONTINUE TO MONITOR PATIENT.
[2020-02-18] MEDS ORDERED: ETOMIDATE 20 MG/10 ML VIAL IVP ONE (02:35)
[2020-02-18] MEDS ORDERED: MORPHINE SULFATE 50 MG in NACL 0.9% 45 ML IV PRN (02:40)
[2020-02-18] MEDS ORDERED: MIDAZOLAM MDV 50 MG/10 ML VIAL IV ONE (02:52)
--- NOTE | 2020-02-18 03:00 | NUR ---
PT DESATED DR. DEL VALLE ON UNIT AND PT AT INTUBATED 220 VENT SETTING AC/VC FIO2 100 VT 350 RR 28 PEEP 15. WILL CONTINUE TO MONITOR PT. Addendum: 02/18/20 at 0657 by Alexy Jordan RN PT INTUBATED 0320
[2020-02-18] MEDS ORDERED: LORazepam 2 MG/ML VIAL IM/IVP ONE (03:10)
[2020-02-18] MEDS ORDERED: LORazepam 2 MG/ML VIAL ONE (03:12)
[2020-02-18] MEDS: MIDAZOLAM MDV 50 MG in NACL 0.9% 40 ML IV PRN (03:46)
[2020-02-18] MEDS ORDERED: MORPHINE SULFATE 100 MG in NACL 0.9% 90 ML IV SCH (04:05)
[2020-02-18] MEDS: hydrALAZINE 25 MG TAB PO SCH ×3 (05:00→21:39)
--- NOTE | 2020-02-18 05:38 | NUR ---
PHONE CALL FROM DR ALCALA RE; CXR RESULT TO RETRACT ETT 2.5 CM ; CALLED RT AND SPOKE WITH RT ABAD
[2020-02-18] MEDS: MORPHINE SULFATE 50 MG in NACL 0.9% 45 ML IV SCH ×3 (05:46→18:56)
--- NOTE | 2020-02-18 06:45 | NUR ---
RESPONDED TO CODE. AT APPROXIMATELY 0220, PATIENT WAS SUCCESSFULLY INTUBATED BY DR. DEL VALLE. PT IS INTUBATED WITH ETT SIZE 7.5 AND SECURED WITH ANCHOR-FAST AT 23CM. AUSCULTATION REVEALS BILATERAL BREATH SOUNDS. PT WAS PLACED ON VENT SETTINGS AC/VC 28, 350, +15, 100%. VENT PLUGGED IN RED OUTLET AND ALARMS SET AND AUDIBLE. SPUTUM SAMPLE COLLECTED AND SENT TO LAB. AT APPROXIMATELY 0545, XRAY SHOWS ETT 1.5CM ABOVE CHARY. ETT WAS RETRACT BACK FROM 23CM TO 21CM PER XRAY RECOMMENDATION. RN AT BEDSIDE. WILL CONTINUE TO MONITOR PATIENT.
[2020-02-18 07:12] LABS: BASOPHILS % (AUTO) 0.1 % (0.0-2.0); HEMATOCRIT 21.2 % (36-48); HEMOGLOBIN 7.2 g/dL (12.0-16.0); LYMPHOCYTES # (AUTO) 0.2 K/uL (2.5-16.5); LYMPHOCYTES % (AUTO) 1.7 % (20.5-51.1); MEAN CORPUSCULAR HEMOGLOBIN 29 pg (27-31); MEAN CORPUSCULAR HGB CONC 34 g/dL (33-37); MEAN CORPUSCULAR VOLUME 84.1 fL (80-94); MONOCYTES # (AUTO) 0.2 K/uL (0.8-1.0); MONOCYTES % (AUTO) 2.1 % (1.7-9.3); NEUTROPHILS # (AUTO) 9.4 K/uL (1.8-7.7); NEUTROPHILS % (AUTO) 96.1 % (42.2-75.2); PLATELET COUNT (AUTO) 174 K/uL (140-450); RED BLOOD CELL COUNT(AUTO) 2.52 MIL/uL (4.20-5.40); RED CELL DISTRIBUTION WIDTH 13.9 % (11.6-13.7); WHITE BLOOD COUNT (AUTO) 9.8 K/uL (4.8-10.8)
--- NOTE | 2020-02-18 07:24 | NUR ---
REPORT GIVEN TO DAY SHIFT RN PT DISPLAYS NO SIGNS OF DISTRESS AT TIME OF HANDOFF
--- NOTE | 2020-02-18 07:30 | NUR ---
RECEIVED REPORT FROM PM SHIFT NURSE KRISTAL BYRNES. PT SEDATATION ( MORPHINE, VERSED DRIP )) ETT TO VENT ACVC MODE ( 100%, TV 350,28, 15) TOLERATED. ON NPO. RT FEMORAL HD CATHETER INTACT & DRY. F/C DRAINING YELLOW COLORED SKIN WARM & DRY. NO DISTRESS NOTED. CALL LIGHT WITHIN REACH WILL CONTINUE TO MONITOR.
[2020-02-18] MEDS ORDERED: DOCUSATE 100 MG/10 ML UDC PO PRN (07:37)
[2020-02-18 08:02] LABS: ALBUMIN 1.7 g/dL (3.4-5.0); ANION GAP 20.6 (8-16); CARBON DIOXIDE 18.2 mmol/L (21-32); POTASSIUM 4.8 mmol/L (3.5-5.1); TOTAL BILIRUBIN 0.4 mg/dL (0.0-1.0)
--- NOTE | 2020-02-18 08:11 | NUR ---
RECEIVED ON A [employer] R860 VENTILATOR PLUGGED INTO RED OUTLET TOLERATING WELL WITHOUT ADVERSE REACTIONS NOTED TO AN ENDOTRACHEAL TUBE #7.5 SECURED AT 21cm WITH AN ANCHOR FAST CUFF PRESSURE CHECKED NOTED STABLE GOOD CHEST RISE ENDOTRACHEAL TUBE SUCTION FOR MODERATE THIN YELLOW SECRETIONS AIRWAY PATENT
--- NOTE | 2020-02-18 08:12 | NUR ---
REVIEWED ABG SAMPLE REPORT 02/18/2020 AT 04:58 pO2 172.3 mmHg SATURATION 100% ON FIO2 100% TITRATED FIO2 TO 80% EDUCATIONAL PSYCHOLOGY TEACHER TO MONITOR NADER/CONTRACT ADMINISTRATION MANAGER NOTIFIED
[2020-02-18] MEDS: ASPIRIN 81 MG TAB.CHEW NG SCH (09:00)
[2020-02-18] MEDS: ASCORBIC ACID 500 MG/5 ML ORASYR NG SCH (09:00)
[2020-02-18] MEDS: BLOOD GLUCOSE MONITORING 1 DEV DEV FS SCH ×4 (09:00→21:38)
[2020-02-18] MEDS: amLODIPine 5 MG TAB PO SCH (09:00)
[2020-02-18] MEDS: ZINC SULF 220 MG CAP PO SCH (09:00)
[2020-02-18] MEDS ORDERED: carvediloL 12.5 MG TAB PO SCH (09:00)
--- NOTE | 2020-02-18 10:02 | NUR ---
STABLE NO SOB NOTED GOOD CHEST RISE
[2020-02-18] MEDS: INSULIN LISPRO SLIDING SCALE 100 UNITS/ML VIAL SUBQ PRN ×3 (10:08→18:53)
[2020-02-18 11:13] LABS: CREATININE 4.6 mg/dL (0.6-1.3)
--- NOTE | 2020-02-18 11:30 | NUR ---
[place] BS 119, GIVEN 2 UNITS LISPRO INSULIN PER SLIDING SCALE.
--- NOTE | 2020-02-18 11:50 | NUR ---
SEDATED NO DISTRESS NOTED EQUAL CHEST RISE GOOD AERATION THROUGHOUT BILATERAL LUNG BARRON AIRWAY PATENT Addendum: 02/18/20 at 1157 by [place] RT SATURATION 100% ON FIO2 OF 80% TITRATED FIO2 TO 60% NADER/TAMMY GIRALDO NOTIFIED
[2020-02-18] MEDS: PANTOPRAZOLE 40 MG INJ VIAL IVP SCH (12:00)
--- NOTE | 2020-02-18 13:44 | NUR ---
RESTING COMFORTABLY NO DISTRESS NOTED EQUAL CHEST RISE
--- NOTE | 2020-02-18 15:25 | NUR ---
SEDATED NO DISTRESS NOTED GOOD CHEST RISE
[2020-02-18 15:35] LABS: LACTATE DEHYDROGENASE 329 IU/L (0-214)
--- NOTE | 2020-02-18 17:19 | NUR ---
SEDATED NO DISTRESS NOTED EQUAL CHEST RISE WITH GOOD AERATION THROUGHOUT BILATERAL LUNG BARRON SATURATION 100% ON FIO2 OF 60% TITRATED FIO2 TO 50% NADER/[place] M[place] OPERATOR NOTIFIED
--- NOTE | 2020-02-18 17:34 | NUR ---
ETT TO VENT ACVC MODE 50% FIO2, RATE 28, TV 350, PEEP 15 ) TOLERATED NOW.
--- NOTE | 2020-02-18 19:02 | NUR ---
STARTED HEMODIALYSIS WITH I UNIT PRBC BLOOD TRANSFUSION AT 1900.
[2020-02-18] MEDS ORDERED: DOPamine 400 MG/D5W PREMIX 250 ML IV ONE (19:22)
--- NOTE | 2020-02-18 19:30 | NUR ---
RECEIVED REPORT FROM DAY SHIFT RN, PT RECEIVING DIALYSIS AT THIS TIME WITH DIALYSIS NURSE AT BEDSIDE. PT ETT TO VENT FIO2 50 VT... PT HAS RIGHT PERIPHERAL IV, INFUSING VERSED 2 MG/HR, MORPHINE 1MG/HR, NS 10 ML/HR, RIGHT SIDE QUINTAN CATH WITH PIG TAIL. PT DRY WEIGHT IS 59 KG. PT LUNG SOUNDS DIMINISHED S1 AND S2 HEART SOUNDS HEARD, BOWEL SOUNDS ACTIVE, PT IS ON TUBE FEEDING NEPRO 30 ML/HR GOAL IS 65 ML/HR WATER FLUSH 100ML/Q6HR, RESIDUALS 10 ML, PT HAS PERRY CATHETER DRAINING YELLOW URINE, WILL CONTINUE TO MONITOR PT Addendum: 02/18/20 at 2158 by Alexy Jordan RN VENT SETTING FIO2 TO VT 350 RR 28 PEEP 15
[2020-02-18] MEDS: DOPamine 400 MG/D5W PREMIX 250 ML IV PRN (19:40)
--- NOTE | 2020-02-18 20:24 | NUR ---
RECEIVED REPORT FROM AM SHIFT. PATIENT SEEN AND ASSESSED. PATIENT IS INTUBATED WITH ETT SIZE 7.5 AND SECURED WITH ANCHOR-FAST AT 21CM. AUSCULTATION REVEALS BILATERAL RALES BREATH SOUNDS. PATIENT ON VENT SETTINGS AC/VC 28, 350, +15, 50%. VENT PLUGGED IN RED OUTLET, HOB > 30 DEGREES, BVM AT BEDSIDE, AND ALARMS SET AND AUDIBLE. PATIENT IS IN NO APPARENT RESPIRATORY DISTRESS AT THIS TIME. SUCTIONED SMALL AMOUNT OF YELLOW THICK SECRETIONS FROM ETT. AIRWAY IS PATIENT. WILL CONTINUE TO MONITOR PATIENT.
--- NOTE | 2020-02-18 21:15 | NUR ---
PHONE CALL TO DR ALCALA REGARDING HEPARIN SUBQ; PT RECEIVED 1 UNIT PRBC DURING HEMODIALYSIS; STOOL STILL APPEARS BLACK TARRY; PHYSICIAN SAID TO HOLD HEPARIN THIS SHIFT.FITZ GIRALDO AWARE
--- NOTE | 2020-02-18 21:30 | NUR ---
PT MEDS GIVEN HYDRALAZINE WITHHELD DUE TO PT LOW HR AND HYPOTENSION BEING MANAGED BY DOPAMINE 5MCG/KG/MIN, PT TOLERATING PROCEDURES WILL CONTINUE TO MONITOR PT
[2020-02-18] MEDS: ATORVASTATIN 20 MG TAB PO SCH (21:40)
[2020-02-18 22:17] LABS: BASOPHILS % (AUTO) 0.1 % (0.0-2.0); HEMATOCRIT 34.2 % (36-48); HEMOGLOBIN 11.1 g/dL (12.0-16.0); LYMPHOCYTES # (AUTO) 0.3 K/uL (2.5-16.5); LYMPHOCYTES % (AUTO) 2.3 % (20.5-51.1); MEAN CORPUSCULAR HEMOGLOBIN 27 pg (27-31); MEAN CORPUSCULAR HGB CONC 32 g/dL (33-37); MEAN CORPUSCULAR VOLUME 83.9 fL (80-94); MONOCYTES # (AUTO) 0.2 K/uL (0.8-1.0); MONOCYTES % (AUTO) 1.9 % (1.7-9.3); NEUTROPHILS % (AUTO) 95.7 % (42.2-75.2); PLATELET COUNT (AUTO) 196 K/uL (140-450); RED BLOOD CELL COUNT(AUTO) 4.08 MIL/uL (4.20-5.40); RED CELL DISTRIBUTION WIDTH 14.9 % (11.6-13.7); WHITE BLOOD COUNT (AUTO) 12.6 K/uL (4.8-10.8)
--- NOTE | 2020-02-18 23:30 | NUR ---
AT APPROXIMATELY 2330, PATIENT WAS SUCCESSFULLY PLACED IN PRONE POSITION. HEAD AND HAND WERE POSITIONED. PATIENT IS IN NO RESPIRATORY DISTRESS AT THIS TIME. RNs AT BEDSIDE. WILL CONTINUE TO MONITOR PATIENT.
--- NOTE | 2020-02-18 23:35 | NUR ---
PT PLACED PRONE, FEEDING HELD WHILE PT IS IN PRONE POSITION, VITAL SIGNS STABLE WILL CONTINUE TO MONITOR PT
[2020-02-19] VITALS (78 sets, daily range): BP systolic 101–149; BP diastolic 53–99
--- NOTE | 2020-02-19 02:32 | NUR ---
PT REMAINS PRONE WITH STABLE VITALS WILL CONTINUE TO MONITOR
[2020-02-19] MEDS: hydrALAZINE 25 MG TAB PO SCH (05:00)
--- NOTE | 2020-02-19 05:10 | NUR ---
REPOSITIONED PATIENT HEAD AND HAND. AIRWAY PATENT. PATIENT IS IN NO DISTRESS AT THIS TIME. RN AT BEDSIDE. WILL CONTINUE TO MONITOR.
--- NOTE | 2020-02-19 05:20 | NUR ---
PT ON DOPAMINE DRIP BP MED WITHHELD AT THIS TIME
--- NOTE | 2020-02-19 06:06 | NUR ---
PATIENT STILL REMAINS ON VENTILATOR SUPPORT. MADE NO CHANGE IN VENT SETTINGS. FiO2 IS TITRATED TO 40%. AIRWAY IS PATENT. PATIENT IS IN NO RESPIRATORY DISTRESS AT THIS TIME. WILL CONTINUE TO MONITOR PATIENT.
[2020-02-19 06:45] LABS: BASOPHILS % (AUTO) 0.1 % (0.0-2.0); HEMATOCRIT 31.9 % (36-48); HEMOGLOBIN 10.6 g/dL (12.0-16.0); LYMPHOCYTES # (AUTO) 0.2 K/uL (2.5-16.5); LYMPHOCYTES % (AUTO) 1.6 % (20.5-51.1); MEAN CORPUSCULAR HEMOGLOBIN 28 pg (27-31); MEAN CORPUSCULAR HGB CONC 33 g/dL (33-37); MEAN CORPUSCULAR VOLUME 83.4 fL (80-94); MONOCYTES # (AUTO) 0.5 K/uL (0.8-1.0); MONOCYTES % (AUTO) 4.2 % (1.7-9.3); NEUTROPHILS % (AUTO) 94.1 % (42.2-75.2); PLATELET COUNT (AUTO) 193 K/uL (140-450); RED BLOOD CELL COUNT(AUTO) 3.82 MIL/uL (4.20-5.40); WHITE BLOOD COUNT (AUTO) 12.7 K/uL (4.8-10.8)
[2020-02-19 07:24] LABS: ALBUMIN 1.9 g/dL (3.4-5.0); ANION GAP 18.3 (8-16); CARBON DIOXIDE 19.7 mmol/L (21-32); CREATININE 3.9 mg/dL (0.6-1.3); TOTAL BILIRUBIN 0.6 mg/dL (0.0-1.0)
[2020-02-19] MEDS: INSULIN LISPRO SLIDING SCALE 100 UNITS/ML VIAL SUBQ PRN ×4 (07:28→20:56)
[2020-02-19] MEDS: BLOOD GLUCOSE MONITORING 1 DEV DEV FS SCH ×4 (07:28→20:53)
--- NOTE | 2020-02-19 07:30 | NUR ---
RECEIVED REPORT FROM PM NURSE, KRISTAL BYRNES. PT SEDATED VERSED, MORPHINE, DOPAMIN DRIP ON PRONE POSITION, OGT TO VENT ( ACVC 30%, 350, 22, 14) TOLERATED. FEEDING HELD. F/C DRAINING YELLOW COLORED URINE. CALL LIGHT WITHIN REAACH. TELE SB 46. RT FEMORAL HD CATETER. INTACT & DRY. JUANPABLO SOFT WRIST RESTRAINS. WILL CONTINUE TO MONITOR.
--- NOTE | 2020-02-19 08:37 | NUR ---
RECD PT IN PRONE POSITION, WITH ET TUBE SECURE AND INTACT, PT ASLEEP, SPO2 100, WILL TITRATE FIO2(30%) AND PEEP(14), DECREASED RR PER ABG. RN AT BEDSIDE, WILL CONTINUE TO MONITOR PT.
[2020-02-19] MEDS: ASCORBIC ACID 500 MG/5 ML ORASYR NG SCH (08:55)
[2020-02-19] MEDS: ASPIRIN 81 MG TAB.CHEW NG SCH (08:55)
[2020-02-19] MEDS: PANTOPRAZOLE 40 MG INJ VIAL IVP SCH (08:55)
[2020-02-19] MEDS: ZINC SULF 220 MG CAP PO SCH (08:55)
--- NOTE | 2020-02-19 11:30 | NUR ---
[place] BS 172. GIVEN 2 UNITS INSULIN HUMALOG ( LISPRO) SUB TO ABDOMEN.
--- NOTE | 2020-02-19 12:40 | NUR ---
DR AMSON AT BEDSIDE, PLAN TO DECREASE PEEP BY 2, RR DECREASED TO 20, WILL CONTINUE TO MONITOR. PER FOLLOW-UP ABG TO BE DONE IN THE AM. Addendum: 02/19/20 at 1510 by Franny Landis RT NO MORE PRONING PER
[2020-02-19] MEDS: MIDAZOLAM MDV 50 MG in NACL 0.9% 40 ML IV PRN (13:01)
--- NOTE | 2020-02-19 13:22 | NUR ---
02/19/20 RD FOLLOW UP COMPLETED PLEASE REFER TO NUTRITION ASSESSMENT UNDER CARE ACTIVITY FOR ESTIMATED NUTRITIONAL NEEDS. 1. RECOMMEND NEPRO 1.8 @ 40 ML/HR X 24 HR -THIS WILL PROVIDE 960 ML, 1728 CALORIES, 77 GM OF PROTEIN. THIS WILL MEET 100% OF ESTIMATED NUTRIENT AND PROTEIN NEEDS 2. RECOMMEND NEPHRO-BRE DAILY 3. CONTINUE FREE WATER FLUSH OF 100 ML Q6H 4. RECOMMEND SWALLOW EVALUATION WHEN PATIENT IS EXTUBATED 5. RD TO FOLLOW-UP 2-3 DAYS, HIGH RISK RITU OG RD
--- NOTE | 2020-02-19 19:02 | NUR ---
REMOVED FLUID 1000ML OUT ON HEMODIALYSIS. OGT FEEDING WITH NEPRO 40ML/HR, WATER FLUSH 100ML Q6. TOLERATED.
--- NOTE | 2020-02-19 19:15 | NUR ---
RECEIVED REPPORT FROM DAY SHIFT RN, PT RASS -3 DRY WEIGHT 59 KG PT HAS VERSED 2MG/HR AND MORPHINE 1MG/HR TO RIGHT FOREARM, PT HAS PERRY CATHETER NO URINE OUTPUT VISIBLE AT THIS TIME, LUNG SOUNDS DIMINISHED, S1 AND S2 HEART SOUNDS HEARD, PULSES PALPABLE UPPER AND LOWER EXTREMITIES, PT SKIN DRY AND INTACT BOWEL SOUNDS ACTIVE. PT ETT TO VENT FIO2 30 VT 350 RR 20 PEEP 12, PT HAS OGT T O FEEDING NEPRO 40ML/HR WATER FLUSH 100 MLQ4H. PT VITALS STABLE WILL CONTINUE TO MONITOR PT
--- NOTE | 2020-02-19 19:55 | NUR ---
RECEIVED REPORT FROM AM SHIFT. PATIENT SEEN AND ASSESSED. PATIENT IS INTUBATED WITH ETT SIZE 7.5 AND SECURED WITH ANCHOR-FAST AT 21CM. AUSCULTATION REVEALS BILATERAL RALES BREATH SOUNDS. PATIENT ON VENT SETTINGS AC/VC 20, 350, +12, 30% WITH SPO2 OF 91%. VENT PLUGGED IN RED OUTLET, HOB > 30 DEGREES, BVM AT BEDSIDE, AND ALARMS SET AND AUDIBLE. PATIENT IS IN NO APPARENT RESPIRATORY DISTRESS AT THIS TIME. PRN TX NOT INDICATED AT THIS TIME. SUCTIONED SCANT AMOUNT OF WHITE/CLEAR THIN SECRETIONS FROM ETT. AIRWAY IS PATIENT. WILL CONTINUE TO MONITOR PATIENT.
[2020-02-19] MEDS: ATORVASTATIN 20 MG TAB PO SCH (20:54)
--- NOTE | 2020-02-19 21:00 | NUR ---
PT MEDS GIVEN PT TOLERATING TREATMENT WILL CONTINUE TO MONITOR
[2020-02-20] VITALS (95 sets, daily range): BP systolic 85–140; BP diastolic 49–77
--- NOTE | 2020-02-20 01:00 | NUR ---
PT VITALS STABLE NO SIGNS OF DISTRESS WILL CONTINUE TO MONITOR PT
--- NOTE | 2020-02-20 03:30 | NUR ---
PT VITALS STABLE WITH NO SIGNS OF DISTRESS
--- NOTE | 2020-02-20 05:53 | NUR ---
PATIENT STILL REMAINS ON VENTILATOR SUPPORT. MADE NO CHANGE IN VENT SETTINGS. AIRWAY IS PATENT. PATIENT IS IN NO RESPIRATORY DISTRESS AT THIS TIME. WILL CONTINUE TO MONITOR PATIENT.
--- NOTE | 2020-02-20 06:30 | NUR ---
PT BLOOD SUGAR HIGH 311 COVERAGE NEEDED
[2020-02-20 06:31] LABS: BASOPHILS % (AUTO) 0.1 % (0.0-2.0); EOSINOPHILS % (AUTO) 0.2 % (0.0-4.0); HEMATOCRIT 27.6 % (36-48); HEMOGLOBIN 9.3 g/dL (12.0-16.0); LYMPHOCYTES # (AUTO) 0.5 K/uL (2.5-16.5); LYMPHOCYTES % (AUTO) 3.3 % (20.5-51.1); MEAN CORPUSCULAR HEMOGLOBIN 28 pg (27-31); MEAN CORPUSCULAR HGB CONC 34 g/dL (33-37); MEAN CORPUSCULAR VOLUME 83.6 fL (80-94); MONOCYTES # (AUTO) 0.3 K/uL (0.8-1.0); MONOCYTES % (AUTO) 1.9 % (1.7-9.3); NEUTROPHILS # (AUTO) 12.8 K/uL (1.8-7.7); NEUTROPHILS % (AUTO) 94.5 % (42.2-75.2); PLATELET COUNT (AUTO) 182 K/uL (140-450); RED CELL DISTRIBUTION WIDTH 14.7 % (11.6-13.7); WHITE BLOOD COUNT (AUTO) 13.6 K/uL (4.8-10.8)
[2020-02-20] MEDS: INSULIN LISPRO SLIDING SCALE 100 UNITS/ML VIAL SUBQ PRN ×3 (06:58→18:01)
[2020-02-20] MEDS: BLOOD GLUCOSE MONITORING 1 DEV DEV FS SCH ×4 (06:58→21:53)
[2020-02-20 07:03] LABS: ALBUMIN 1.8 g/dL (3.4-5.0); ANION GAP 15.2 (8-16); CARBON DIOXIDE 22.7 mmol/L (21-32); CREATININE 3.8 mg/dL (0.6-1.3); POTASSIUM 3.9 mmol/L (3.5-5.1); TOTAL BILIRUBIN 0.3 mg/dL (0.0-1.0)
[2020-02-20 07:12] LABS: FOLIC ACID 16.2 ng/mL (>3.0)
--- NOTE | 2020-02-20 07:57 | NUR ---
RECD PT ON VENT WITH VENT PLUGGED INTO RED OUTLETS, ALARMS AUDIBLE, AMBU BAG AT BEDSIDE, ET TUBE SECURE AND INTACT. SPO2 DROPPING TO 87% INCREASED FIO2 TO 35%, FIO2 NOW 94%, WILL CONTINUE TO MONITOR PT AND TITRATE O2. RN AWARE.
[2020-02-20] MEDS: ASPIRIN 81 MG TAB.CHEW NG SCH (09:00)
[2020-02-20] MEDS: PANTOPRAZOLE 40 MG INJ VIAL IVP SCH (09:00)
[2020-02-20] MEDS: ASCORBIC ACID 500 MG/5 ML ORASYR NG SCH (09:00)
[2020-02-20] MEDS: ZINC SULF 220 MG CAP PO SCH (09:00)
--- NOTE | 2020-02-20 12:50 | NUR ---
DR MASON AT BED, INCREASED PEEP TO 16 DUE TO LOWERING SOP2, SPO2 NOW 90%, RN AWARE, WILL CONTINUE TO MONITOR PT.
--- NOTE | 2020-02-20 12:55 | NUR ---
PT O2 SATURATION CONTINUES TO DROP, INCREASED FIO2 TO 50%, SPO2 91%
[2020-02-20] MEDS: MIDAZOLAM MDV 100 MG in NACL 0.9% 80 ML IV PRN (14:37)
--- NOTE | 2020-02-20 16:30 | NUR ---
[place] BS 244, GIVEN 4 UNITS INSULUIN HUMALOG PER SLIDING SCALE.
--- NOTE | 2020-02-20 19:02 | NUR ---
REMAINS ON ETT VENT AC/VC 50% 350 20 15. TOLERATING AT THIS TIME. NO DISTREE NOTED.
--- NOTE | 2020-02-20 19:45 | NUR ---
PT SEDATED RASS-3 MORPHINE AND VERSED DRIP INFUSING. ETT TO VENT AC 50% FIO2 R 20 PEEP 16. DIMINISHED BREATH SOUNDS BILATERALLY. ABD SOFT NON DISTENDED. X1 LARGE BM NOTED. OGT IN PLACE NEPRO FEEDING RUNNING, <50 ML RESIDUALS NOTED. PERRY CATH IN PLACE DARK SAW URINE NOTED. R FEMORAL AGUILAR CATH NOTED WITH PIGTAIL. DOPAMINE RUNNING @ 5 MCG/KG/MIN. R WRIST 20G PIV NOTED. BLANCHABLE REDNESS TO BUTTOCKS AREA. JUANPABLO SOFT WRIST RESTRAINTS IN PLACE. DROPLET PRECAUTIONS NOTED. BED LOCKED IN LOWEST POSITION.
--- NOTE | 2020-02-20 20:07 | NUR ---
RECEIVED PT ON DOCUMENTED SETTINGS. VENT PLUGGED INTO RED OUTLET. BMV AT BEDSIDE. ETT SECURED AND INTACT. PT IS IN NO DISTRESS. WILL CONT TO MONITOR
[2020-02-20] MEDS: ATORVASTATIN 20 MG TAB PO SCH (21:53)
[2020-02-20] MEDS: MORPHINE SULFATE 100 MG in NACL 0.9% 90 ML IV PRN (21:54)
[2020-02-21] VITALS (104 sets, daily range): BP systolic 62–127; BP diastolic 40–74
--- NOTE | 2020-02-21 | NUR ---
PT TURNED AND REPOSITIONED, VAP ORAL CARE DONE. UNABLE TO PRONE PT @ THIS TIME. BP 80S, MD AWARE. WILL CONTINUE TO OBSERVE.
--- NOTE | 2020-02-21 04:25 | NUR ---
AM CARE DONE. VAP ORAL CARE DONE. PT TURNED AND REPOSITIONED. NO ACUTE DISTRESS NOTED.
--- NOTE | 2020-02-21 05:47 | NUR ---
PT REMAINS ON DOCUMENTED SETTINGS. NO CHANGED MADE. ETT SECURED AND INTACT. PT IS IN NO DISTRESS. WILL CONT TO MONITOR
[2020-02-21 06:07] LABS: LD1 FRACTION 17 % (17-32); LD2 FRACTION 33 % (25-40); LD3 FRACTION 24 % (17-27); LD5 FRACTION 11 % (4-20)
[2020-02-21 06:11] LABS: BASOPHILS % (AUTO) 0.1 % (0.0-2.0); EOSINOPHILS # (AUTO) 0.1 K/uL (0-0.4); EOSINOPHILS % (AUTO) 0.4 % (0.0-4.0); HEMATOCRIT 26.6 % (36-48); HEMOGLOBIN 8.7 g/dL (12.0-16.0); LYMPHOCYTES # (AUTO) 1.1 K/uL (2.5-16.5); LYMPHOCYTES % (AUTO) 8.3 % (20.5-51.1); MEAN CORPUSCULAR HEMOGLOBIN 28 pg (27-31); MEAN CORPUSCULAR HGB CONC 33 g/dL (33-37); MEAN CORPUSCULAR VOLUME 84.5 fL (80-94); MONOCYTES # (AUTO) 0.4 K/uL (0.8-1.0); MONOCYTES % (AUTO) 2.9 % (1.7-9.3); NEUTROPHILS # (AUTO) 12.2 K/uL (1.8-7.7); NEUTROPHILS % (AUTO) 88.3 % (42.2-75.2); PLATELET COUNT (AUTO) 183 K/uL (140-450); RED BLOOD CELL COUNT(AUTO) 3.15 MIL/uL (4.20-5.40); RED CELL DISTRIBUTION WIDTH 15.1 % (11.6-13.7); WHITE BLOOD COUNT (AUTO) 13.8 K/uL (4.8-10.8)
[2020-02-21 06:29] LABS: ALBUMIN 1.7 g/dL (3.4-5.0); ANION GAP 17.8 (8-16); ASPARTATE AMINOTRANSFERASE 83 U/L (15-37); CARBON DIOXIDE 21.9 mmol/L (21-32); CHLORIDE 95 mmol/L (98-107); GFR ARICAN-AMERICAN 10 mL/min (>90); GLUCOSE 219 mg/dL (74-106); POTASSIUM 3.7 mmol/L (3.5-5.1); SODIUM SERUM 131 mmol/L (136-145); TOTAL BILIRUBIN 0.3 mg/dL (0.0-1.0)
--- NOTE | 2020-02-21 07:20 | NUR ---
RECEIVED REPORT FROM PLANNER INTERNSHIP RN. PT IS ETT TO VENT, SEDATED RASS-3 MORPHINE AT 1MG/HR, AND VERSED DRIP AT 2MG/HR. DOPAMINE AT 5MCG/MIN. VENT SETTING, ACVC FIO2 50% RR 20 PEEP 16. VITALS STABLE, BED LOCKED IN LOWEST POSITION.
--- NOTE | 2020-02-21 07:23 | NUR ---
RECEIVED INTUBATED PT WITH A 7.5 ETT SECURED @21 TEETH/GUM ON VENT. SETTINGS AC 20, VT 350, PEEP 16 AND FIO2 50%. PT SEDATED NOT IN ANY DISTRESS AT THIS TIME. VENT IS PLUGGED INTO A RED OUTLET WITH ALARMS ON AND FUNCTIONING. ETT IS SECURE WITH A PATENT AIRWAY. WILL CONTINUE TO MONITOR.
--- NOTE | 2020-02-21 07:35 | NUR ---
REPORT GIVEN TO DAY SHIFT RN FOR CONTINUITY OF CARE.
[2020-02-21 08:03] LABS: CREATININE 5.5 mg/dL (0.6-1.3); UREA NITROGEN, BLOOD 117 mg/dL (7-18)
--- NOTE | 2020-02-21 09:00 | NUR ---
DIMINISHED BREATH SOUNDS BILATERALLY. ABD SOFT NON DISTENDED. OGT IN PLACE NEPRO FEEDING RUNNING AT 40ML/HR, WATER FLUSH 100ML Q6H. RESIDUALS 20ML NOTED. PERRY CATH IN PLACE DARK SAW URINE. R FEMORAL AGUILAR CATH NOTED WITH PIGTAIL, DRESSING INTACT, NO LEAKING. BLANCHABLE REDNESS TO BUTTOCKS AREA, OPTIFOAM IN PLACE. JUANPABLO SOFT WRIST RESTRAINTS IN PLACE, NO SIGNS OF INJURY.
[2020-02-21] MEDS: BLOOD GLUCOSE MONITORING 1 DEV DEV FS SCH ×4 (09:25→21:59)
[2020-02-21] MEDS: ASCORBIC ACID 500 MG/5 ML ORASYR NG SCH (09:43)
[2020-02-21] MEDS: INSULIN LISPRO SLIDING SCALE 100 UNITS/ML VIAL SUBQ PRN ×3 (09:44→21:00)
[2020-02-21] MEDS: PANTOPRAZOLE 40 MG INJ VIAL IVP SCH (09:44)
[2020-02-21] MEDS: ZINC SULF 220 MG CAP PO SCH (09:45)
[2020-02-21] MEDS: ASPIRIN 81 MG TAB.CHEW NG SCH (09:45)
--- NOTE | 2020-02-21 10:09 | NUR ---
CALLED DIALYSIS NURSE TO COME FOR HD, DOYLE GIRALDO SAID WILL COME AROUND NOON.
--- NOTE | 2020-02-21 10:10 | NUR ---
CALLED DR SULTANA IF HE WANTS TO HOLD HEPARIN, PTT 45.8 ON 02/16/20, DR SULTANA IS OK WITH HEPARIN SUBQ. ASKED DR TO CALLED FAMILY REGARDING PICC LINE. WILL CALL LATER TO GET TELEPHONE CONSENT AFTER DR EXPLAINING THE PROCEDURE.
--- NOTE | 2020-02-21 10:52 | NUR ---
CALLED PT'S FAMILY FOR TELEPHONE CONSENT. PT'S GRAND DAUGHTER OMI OK WITH THE PROCEDURE. PT'S DAUGHTER NOT AVAILABLE, ALSO BEING HOSPITALIZED. PT'S GRAND DAUGHTER SAID HAS ALREADY SPOKE WITH HER REGARDING PICC LINE.
--- NOTE | 2020-02-21 10:56 | NUR ---
CALLED PICC LINE NUMBER, WAITING FOR CASEY GIRALDO TO CALL BACK.
--- NOTE | 2020-02-21 14:06 | NUR ---
PT SUCTIONED OBTAINED SMALL AMOUNT OF THICK WHITE/PALE YELLOW SECRETIONS, AIRWAY IS PATENT AND SECURE. WILL CONTINUE TO MONITOR. PT NOT IN ANY DISTRESS AT THIS TIME RECEIVED DIALYSIS.
--- NOTE | 2020-02-21 14:07 | NUR ---
FIO2 @45%. WILL CONTINUE TO MONITOR.
--- NOTE | 2020-02-21 15:41 | NUR ---
02/21/20 RD FOLLOW UP COMPLETED PLEASE REFER TO NUTRITION ASSESSMENT UNDER CARE ACTIVITY FOR ESTIMATED NUTRITIONAL NEEDS. 1. CONTINUE NEPRO 1.8 @ 40 ML/HR X 24 HR -THIS WILL PROVIDE 960 ML, 1728 CALORIES, 77 GM OF PROTEIN. THIS WILL MEET 100% OF ESTIMATED NUTRIENT AND PROTEIN NEEDS 2. CONTINUE FREE WATER FLUSH OF 100 ML Q6H 3. RECOMMEND SWALLOW EVALUATION WHEN PATIENT IS EXTUBATED 4. RD TO FOLLOW-UP 2-3 DAYS, HIGH RISK RITU OG RD
--- NOTE | 2020-02-21 15:53 | NUR ---
PT NOT IN ANY DISTRESS AT THIS TIME PT STILL RECEIVING DIALYSIS. WILL CONTINUE TO MONITOR. SPO2 94%.
--- NOTE | 2020-02-21 15:55 | NUR ---
CALLED DR FRAIRE AND MADE HIM AWARE PT HAVING DIALYSIS, BP DROPPED SO DOPAMINE WAS INCREASED THE TO 15MCG/MIN, HOWEVER PT 'S HR INCREASED TO 120S. DR FRAIRE SAID IT'S STILL OK AND JUST KEEPS AN EYE ON IT.
[2020-02-21] MEDS: DOPamine 400 MG/D5W PREMIX 250 ML IV PRN (16:51)
--- NOTE | 2020-02-21 17:02 | NUR ---
CALLED DR EDWARD, MADE HIM AWARE THAT DIALYSIS NURSE DOYLE SAID THE RIGHT FEMORAL AGUILAR BLOOD RETURN WAS NOT GOOD. DR EDWARD SAID TO ASK SURGEON TO PLACE AN IJ AGUILAR. ASKED DR EDWARD THAT RESIDENT ORDERED PICC LINE, IF HE STILL WANTS PICC LINE. DR EDWARD SAID AGUILAR CATH HAS A PIGGY TAIL FOR MEDICATION, SO NO PICC LINE FOR NOW. CALLED DR SULTANA RESIDENT AND TOLD HIM ABOUT THE CONVERSATION WITH DR EDWARD. DR SULTANA SAID WILL ASK DR RAMÍREZ TO PUT THE IJ AGUILAR.
--- NOTE | 2020-02-21 18:00 | NUR ---
CLEANED PT, BMX1, CHANGED BED LINENS. TURNED PT TO PRONE POSITION.
--- NOTE | 2020-02-21 18:19 | NUR ---
PT PLACED IN PRONE POSITION WITHOUT INCIDENT. VENT ALARMS ON AND FUNCTIONING. PT NOT IN ANY DISTRESS. ETT IS SECURE WITH A PATENT AIRWAY.
--- NOTE | 2020-02-21 19:30 | NUR ---
REPORT RECEIVED FROM DAY SHIFT NURSE. PT RECEIVED IN PRONE POSITION. NO SIGNS OF DISTRESS OBSERVED. VITAL SIGNS STABLE. ETT TO VENT- FIO2 45%, TV 350, RATE 20, PEEP 14. NO RESPIRATORY DISTRESS. STILL ON DOPAMINE, VERSED, MORPHINE. OGT INTACT AND PATENT, RUNNING AT 40 ML/HR AND WATER FLUSH OF 100ML EVERY 6 HOURS. WILL CONTINUE TO MONITOR PATIENT. Addendum: 02/22/20 at 0516 by Franki Taylor RN DOPAMINE 5MCG/KG/MIN, VERSED 2MG/HR, MORPHINE 1ML/HR. RASS-3. DRY WEIGHT OF 59.8, NON BLANCHABLE REDNESS TO SACRUM OBSERVED, OPTIFOAM APPLIED TO SITE FOR PROTECTION. PERIPHERAL LINE TO THE RIGHT WRIST, ASYMPTOMATIC. RIGHT FEMORAL CENTRAL LINE PATENT. ORAL MUCOSA PINK AND MOIST. SIDE RAILS UP, BED IN LOW POSITION. LUNGS ARE DIMINISHED IN ALL QUADRANTS UPON AUSCULTATION. WILL CONTINUE TO MONITOR PT.
--- NOTE | 2020-02-21 19:36 | NUR ---
RECEIVED PT ON DOCUMENTED SETTING. VENT PLUGGED INTO RED OUTLET. BMV AT BEDSIDE. ALARMS AUDIBLE AND WORKING. ETT SECURED AND INTACT. PT IS IN A PRONE POSITION. HEAD TILT TO THE RIGHT. ETT REMAINS PATENT. PT IS IN NO DISTRESS. WILL CONT TO MONITOR
--- NOTE | 2020-02-21 20:30 | NUR ---
CHG DONE. PT SEDATED. NO COMPLAINTS AT THIS TIME. VITALS STABLE.
[2020-02-21] MEDS: ATORVASTATIN 20 MG TAB PO SCH (20:41)
--- NOTE | 2020-02-21 22:44 | NUR ---
PT RESTING AT THIS TIME. SEDATED. NO RESPIRATORY DISTRESS. WILL CONTINUE TO MONITOR.
[2020-02-22] VITALS (103 sets, daily range): BP systolic 80–135; BP diastolic 45–71
--- NOTE | 2020-02-22 04:30 | NUR ---
AM CARE DONE, GOWN AND LINEN CHANGED. NO DISTRESS OBSERVED.
[2020-02-22 04:31] LABS: HEMATOCRIT 24.9 % (36-48); HEMOGLOBIN 8.2 g/dL (12.0-16.0); MEAN CORPUSCULAR HEMOGLOBIN 28 pg (27-31); MEAN CORPUSCULAR HGB CONC 33 g/dL (33-37); MEAN CORPUSCULAR VOLUME 84.5 fL (80-94); PLATELET COUNT (AUTO) 201 K/uL (140-450); RED BLOOD CELL COUNT(AUTO) 2.95 MIL/uL (4.20-5.40); RED CELL DISTRIBUTION WIDTH 15.3 % (11.6-13.7); WHITE BLOOD COUNT (AUTO) 16.8 K/uL (4.8-10.8)
--- NOTE | 2020-02-22 04:33 | NUR ---
PT PLACED BACK ON SUPINE. ETT REMAINS SECURED AND INTACT. NO CHANGES MADE TO THE VENTILATOR. VENT PLUGGED INTO RED OUTLET. BMV AT BEDSIDE. ETT REMAINS PATENT AIRWAYS. PT IS IN NO DISTRESS. KRISTAL LEE AT BEDSIDE. WILL CONT TO MONITOR
[2020-02-22 04:57] LABS: ALBUMIN 1.4 g/dL (3.4-5.0); ANION GAP 15.8 (8-16); CARBON DIOXIDE 22.9 mmol/L (21-32); POTASSIUM 3.7 mmol/L (3.5-5.1); TOTAL BILIRUBIN 0.2 mg/dL (0.0-1.0)
[2020-02-22 04:58] LABS: MAGNESIUM 1.7 mg/dL (1.8-2.4); PHOSPHORUS 4.4 mg/dL (2.5-4.9)
--- NOTE | 2020-02-22 05:00 | NUR ---
PT SEDATED, EYES CLOSED. CENTRAL LINE DRESSING CHANGED. WILL CONTINUE TO MONITOR.
[2020-02-22 05:26] LABS: EOSINOPHILS % (MANUAL) 2 % (0-4); LYMPHOCYTES % (MANUAL) 7 % (20-46); MONOCYTES % (MANUAL) 2 % (5-12)
[2020-02-22 05:43] LABS: CREATININE 5.5 mg/dL (0.6-1.3)
[2020-02-22 06:24] LABS: CKMB RELATIVE INDEX 0.3 (0.0-2.5)
[2020-02-22 06:31] LABS: CREATINE KINASE MB 1.9 ng/mL (0-3.6)
[2020-02-22] MEDS: BLOOD GLUCOSE MONITORING 1 DEV DEV FS SCH ×4 (06:31→21:09)
[2020-02-22] MEDS: INSULIN LISPRO SLIDING SCALE 100 UNITS/ML VIAL SUBQ PRN ×3 (06:31→21:18)
--- NOTE | 2020-02-22 07:31 | NUR ---
HEPARIN 100UNITS LOCK FLUSH GIVEN BY DR LOYA.
--- NOTE | 2020-02-22 07:35 | NUR ---
RECEIVED REPORT FROM WASTE MINIMIZATION TECHNICIAN RN. PT IS ETT TO VENT, SEDATED RASS-3 MORPHINE AT 1MG/HR, AND VERSED DRIP AT 2MG/HR. DOPAMINE AT 5MCG/MIN. VENT SETTING, ACVC FIO2 45% RR 20 PEEP 14. VITALS STABLE, BED LOCKED IN LOWEST POSITION. Addendum: 02/22/20 at 1550 by Dev Cole RN DRY WEIGHT 59.8 KG
--- NOTE | 2020-02-22 07:35 | NUR ---
REPORT GIVEN TO DAY SHIFT NURSE FOR CONTINUITY OF CARE.
--- NOTE | 2020-02-22 08:00 | NUR ---
DIMINISHED BREATH SOUNDS BILATERALLY. ABD SOFT NON DISTENDED. OGT POSITION CONFIRM BY AUSCULTATION. NEPRO FEEDING RUNNING AT 40ML/HR, WATER FLUSH 100ML Q6H. RESIDUALS 40ML. PERRY CATH IN PLACE SAW URINE WITH SEDIMENTS. R FEMORAL AGUILAR CATH NOTED WITH PIGTAIL, DRESSING INTACT, NO LEAKING. NONBLANCHABLE REDNESS TO BUTTOCKS AREA, OPTIFOAM IN PLACE. JUANPABLO SOFT WRIST RESTRAINTS IN PLACE, NO SIGNS OF INJURY. Addendum: 02/22/20 at 1149 by Dev Cole RN LEFT HAND NON PITTING EDEMA NOTED.
[2020-02-22] MEDS ORDERED: ALBUMIN HUMAN 25% 50 ML IV SCH (08:18)
[2020-02-22] MEDS ORDERED: LEVOFLOXACIN 500 MG/D5W PREMIX 100 ML IV SCH (09:00)
[2020-02-22] MEDS: ASPIRIN 81 MG TAB.CHEW NG SCH (09:06)
[2020-02-22] MEDS: ZINC SULF 220 MG CAP PO SCH (09:06)
[2020-02-22] MEDS: PANTOPRAZOLE 40 MG INJ VIAL IVP SCH (09:06)
[2020-02-22] MEDS: ASCORBIC ACID 500 MG/5 ML ORASYR NG SCH (09:07)
--- NOTE | 2020-02-22 09:30 | NUR ---
RIGHT IJ AGUILAR INSERTED BY DR FARLEY. CVC DRESSING PLACED. NO BLEEDING NOTED.
[2020-02-22] MEDS: MIDAZOLAM MDV 100 MG in NACL 0.9% 80 ML IV PRN (10:50)
[2020-02-22] MEDS: MORPHINE SULFATE 100 MG in NACL 0.9% 90 ML IV PRN (10:52)
[2020-02-22] MEDS ORDERED: MAG SULF 2000 MG/WATER PREMIX 50 ML IV SCH (11:00)
--- NOTE | 2020-02-22 12:35 | NUR ---
DR MASON ASSESSED PT. DC'D PERRY PER DR MASON'S ORDER. WILL INSERT A NEW PERRY LATER AND COLLECT URINE SPECIMEN.
--- NOTE | 2020-02-22 14:25 | NUR ---
OGT FLUSHED WITH H2O. TUBE FEEDING STOPPED TO PREVENT ASPIRATION. PT TURNED TO PRONE POSITION ACCORDING TO MD ORDER.
[2020-02-22] MEDS: DOPamine 400 MG/D5W PREMIX 250 ML IV PRN (14:38)
--- NOTE | 2020-02-22 14:38 | NUR ---
PT PLACED IN PRONE POSITION WITHOUT INCIDENT. ETT SECURE WITH A PATENT AIRWAY. NURSE IS BEDSIDE. PT TOLERATING VENT SETTINGS WELL. WILL CONTINUE TO MONITOR.
--- NOTE | 2020-02-22 14:50 | NUR ---
RIGHT FEMORAL AGUILAR REMOVED. DRESSING APPLIED, PRESSURE APPLIED FOR 5MIN. NEW PERRY INSERTED, OLIGURIA, MINIMAL YELLOW URINE.
--- NOTE | 2020-02-22 16:55 | NUR ---
TALKED TO DR LOYA ABOUT BLOOD SUGAR 233, TUBE FEEDING IS PAUSED BECAUSE PT WILL BE IN PRONE POSITION FOR AT LEAST 12 HRS. ASKED IF NEEDED TO GIVE PT INSULIN COVERAGE, DR LOYA SAID NO COVERAGE THIS TIME, JUST CHECK AGAIN WHEN NEXT TIME IS DUE.
--- NOTE | 2020-02-22 17:30 | NUR ---
URINE SPECIMEN SENT TO LAB FOR UA AND URINE CULTURE.
--- NOTE | 2020-02-22 19:45 | NUR ---
PT SEDATED. DOESN'T MOVE MUCH. RESTRAINTS OFF AT THIS TIME.
--- NOTE | 2020-02-22 19:47 | NUR ---
RECEIVED PT ON DOCUMENTED SETTINGS. PT IS IN PRONE POSITION. PATENT AIRWAY. VENT PLUGGED INTO RED OUTLET. BMV AT BEDSIDE. ETT SECURED AND INTACT. PT IS IN NO DISTRESS. WILL CONT TO MONITOR
--- NOTE | 2020-02-22 20:00 | NUR ---
REPORT RECEIVED FROM DAY SHIFT NURSE. PT RECEIVED IN PRONE POSITION. NO SIGNS OF DISTRESS OBSERVED. ORAL MUCOSA PINK AND MOIST. PERRY CATHETER IN PLACE DRAINING TO GRAVITY. SIDE RAILS UP, BED IN LOW POSITION. LUNGS ARE DIMINISHED IN ALL QUADRANTS UPON AUSCULTATION. ETT TO VENT- FIO2 45%, TV 350, RATE 20, PEEP 12. NO RESPIRATORY DISTRESS. OGT TO FEEDING INTACT AND PATENT BUT ON HOLD FOR NOW DUE TO PRONE POSITION. DOPAMINE 5MCG/KG/MIN, VERSED 1MG/HR, MORPHINE 1ML/HR. RASS-3 WITHDRAWS TO PAIN. DRY WEIGHT OF 59.8, NON BLANCHABLE REDNESS TO SACRUM OBSERVED, OPTIFOAM IN PLACE. PERIPHERAL LINE G20 TO RIGHT FOREARM WITH NO SIGNS OF INFILTRATION AND REDNESS. RIGHT IJ AGUILAR INTACT. WILL CONTINUE TO MONITOR PT.
[2020-02-22] MEDS: ATORVASTATIN 20 MG TAB PO SCH (20:23)
--- NOTE | 2020-02-22 22:00 | NUR ---
PT ON PRONE POSITION. SATURATION ABOVE 90'S. NO DISTRESS OBSERVED.
--- NOTE | 2020-02-22 23:24 | NUR ---
NO RESPIRATORY DISTRESS OBSERVED. WILL CONTINUE TO MONITOR.
[2020-02-23] VITALS (106 sets, daily range): BP systolic 87–176; BP diastolic 8–88
--- NOTE | 2020-02-23 00:50 | NUR ---
DIALYSIS COMPLETED AT THIS TIME WITH 1 LITER OUTPUT. NO SIGNS OF DISTRESS AT THIS TIME. PT TOLERATED PROCEDURE WELL. WILL CONTINUE MONITOR. Addendum: 02/23/20 at 0315 by Franki Taylor RN discard; wrong pt
--- NOTE | 2020-02-23 03:09 | NUR ---
PT PLACED BACK IN SUPINE POSITION. ETT REMAINS AT DOCUMENTED SETTINGS. PATENT AIRWAY WHEN SUCTIONING. SX SMALL AMOUNT OF THICK WHITE SECRETION. RN AT BEDSIDE. WILL CONT TO MONITOR
--- NOTE | 2020-02-23 03:10 | NUR ---
OGT IN PLACE, AUSCULTATED/AIR CHECK, CONFIRMED PLACEMENT. RESIDUALS ARE ONLY GASTRIC JUICES-5 ML. NEW FEEDING RESTARTED. PROVIDED VAP ORAL CARE. PATIENT WITHDRAWS TO SUCTIONING/HAS SMALL GAG REFLEX. EYES ARE PERRL, SLUGGISH, 3 MM. HOB 30 DEGREES, OFFLOADED PRESSURE AREAS.
[2020-02-23 04:47] LABS: HEMATOCRIT 22.8 % (36-48); HEMOGLOBIN 7.6 g/dL (12.0-16.0); MEAN CORPUSCULAR HEMOGLOBIN 28 pg (27-31); MEAN CORPUSCULAR HGB CONC 33 g/dL (33-37); PLATELET COUNT (AUTO) 228 K/uL (140-450); RED BLOOD CELL COUNT(AUTO) 2.71 MIL/uL (4.20-5.40); RED CELL DISTRIBUTION WIDTH 15.1 % (11.6-13.7); WHITE BLOOD COUNT (AUTO) 15.1 K/uL (4.8-10.8)
--- NOTE | 2020-02-23 05:30 | NUR ---
FEEDING RATE INCREASED TO 65MLS/HR WITH 100MLS/6HRS WATER FLUSH. NO DISTRESS OBSERVED.
[2020-02-23 06:39] LABS: EOSINOPHILS % (MANUAL) 3 % (0-4); LYMPHOCYTES % (MANUAL) 6 % (20-46); MONOCYTES % (MANUAL) 7 % (5-12)
[2020-02-23 06:40] LABS: ALBUMIN 1.4 g/dL (3.4-5.0); ANION GAP 16.6 (8-16); ASPARTATE AMINOTRANSFERASE 74 U/L (15-37); CARBON DIOXIDE 22.4 mmol/L (21-32); CHLORIDE 95 mmol/L (98-107); GFR ARICAN-AMERICAN 9 mL/min (>90); GLUCOSE 91 mg/dL (74-106); SODIUM SERUM 130 mmol/L (136-145); TOTAL BILIRUBIN 0.4 mg/dL (0.0-1.0)
[2020-02-23 06:47] LABS: CREATININE 6.2 mg/dL (0.6-1.3); UREA NITROGEN, BLOOD 110 mg/dL (7-18)
--- NOTE | 2020-02-23 07:07 | NUR ---
RECIEVED PT ON AC VT350 f25 PEEP12 fiO2 45 ETT 7.5 @ 20 CM BMV AT BEDSIDE VENT PLUGGED INTO RED OUTLET PT RESTING COMFORTABLY UPON DEPARTURE PT WAS Sx W/ SMALL AMT THICK ROONEY SECRETIONS
[2020-02-23] MEDS: BLOOD GLUCOSE MONITORING 1 DEV DEV FS SCH ×4 (07:30→20:37)
--- NOTE | 2020-02-23 07:30 | NUR ---
REPORT RECEIVED FROM ELECTRICAL AND INSTRUMENTATION MECHANIC NURSE, PT SEDATED TO RASS -3, ETT TO VENT, 7.5F, 20CM AT TEETH, ACVC FIO2 45%, VT 350, RR 20, PEEP 12, BILAT CHEST RISE/FALL NOTED, VITALS STABLE ON MONITOR, HR 68, RR 20, BP 122/54, O2SAT 95%, SKIN DRY COLOR WNL, OGT FEEDING AT 65ML/HR, FWF 100/6H, PERRY IN PLACE TO GRAVITY, RFA PIC 20G, R IJ AGUILAR WITH PIGTAIL, SITE WNL, CURRENT DRIPS: VERSED 1MG/HR (1ML/HR), MORPHINE 1MG/HR (1ML/HR), DOPAMINE 5MCG/KG/MIN (11.4ML/HR) DRY WT 59.8KG, POC REVIEWED, ALL SAFETY MEASURES IN PLACE.
--- NOTE | 2020-02-23 07:34 | NUR ---
REPORT GIVEN TO DAY SHIFT NURSE FOR CONTINUITY OF CARE.
--- NOTE | 2020-02-23 07:45 | NUR ---
DR BACH AT BEDSIDE FOR EVAL.
[2020-02-23] MEDS: ZINC SULF 220 MG CAP PO SCH (08:38)
[2020-02-23] MEDS: PANTOPRAZOLE 40 MG INJ VIAL IVP SCH ×2 (08:38→18:11)
[2020-02-23] MEDS: ASCORBIC ACID 500 MG/5 ML ORASYR NG SCH (08:38)
[2020-02-23] MEDS: ASPIRIN 81 MG TAB.CHEW NG SCH (08:38)
[2020-02-23] MEDS ORDERED: bisacodyL 10 MG SUPP RC SCH (09:00)
--- NOTE | 2020-02-23 11:20 | NUR ---
DR URIOSTEGUI AT BEDSIDE, PT TO PRONE AFTER DIALYSIS FOR 12HRS
[2020-02-23] MEDS ORDERED: hePARIN / DEXT 5% PREMIX 250 ML IV SCH (11:40)
[2020-02-23] MEDS ORDERED: HEPARIN PER PHARMACY MC PRN (11:40)
[2020-02-23] MEDS: INSULIN LISPRO SLIDING SCALE 100 UNITS/ML VIAL SUBQ PRN ×3 (12:20→21:00)
[2020-02-23] MEDS: DOPamine 400 MG/D5W PREMIX 250 ML IV PRN (12:50)
--- NOTE | 2020-02-23 12:56 | NUR ---
DR EDWARD AT BEDSIDE, DIALYSIS NURSE AT BEDSIDE
--- NOTE | 2020-02-23 13:30 | NUR ---
PT IS NOT IN ANY DISTRESS AND DIALYSES NURSE IS AT BEDSIDE AT THIS TIME
--- NOTE | 2020-02-23 13:35 | NUR ---
1 UNIT OF PRBC DOUBLE VERIFIED WITH DIALYSIS NURSE JOEY, TO BE GIVEN WITH DIALYSIS.
[2020-02-23] MEDS: MORPHINE SULFATE 100 MG in NACL 0.9% 90 ML IV PRN (16:09)
[2020-02-23] MEDS: MIDAZOLAM MDV 100 MG in NACL 0.9% 80 ML IV PRN (16:10)
--- NOTE | 2020-02-23 17:00 | NUR ---
DIALYSIS DONE, 1700ML TAKEN OUT PER KRISTAL COOK.
--- NOTE | 2020-02-23 17:17 | NUR ---
PT REMAINS ON DOCUMENTED VENT SETTINGS. PT NOT IN ANY DISTRESS AT THIS TIME. ETT REMAINS SECURE WITH A PATENT AIRWAY. VENT ALARMS ON AND FUNCTIONING.
--- NOTE | 2020-02-23 17:30 | NUR ---
PT TURNED TO PRONE WITH 3 RTs AND 2 RNs AT BEDSIDE WITHOUT INCIDENT, PT BUDDY WELL, VS STABLE, CARDIAC LEADS PLACED ON BACK.
[2020-02-23 18:07] LABS: APPEARANCE,URINE CLOUDY (CLEAR); BILIRUBIN,URINE NEGATIVE (NEGATIVE); BLOOD, URINE 1+ (NEGATIVE); LEUKOCYTE ESTERASE ,URINE 2+ (NEGATIVE); NITRITE, URINE NEGATIVE (NEGATIVE); UGLUCOSE NEGATIVE (NEGATIVE)
[2020-02-23] MEDS: hePARIN / DEXT 5% PREMIX 250 ML IV SCH (18:12)
[2020-02-23 18:14] LABS: COLOR,URINE YELLOW (YELLOW)
[2020-02-23 18:21] LABS: WBC,URINE 20-60 /HPF (0-5)
[2020-02-23 18:23] LABS: YEAST,URINE Many /HPF (None Seen)
--- NOTE | 2020-02-23 19:29 | NUR ---
REPORT GIVEN TO FRY COOK NURSE.
--- NOTE | 2020-02-23 19:30 | NUR ---
RECEIVED REPORT FROM [facility] NURSE. PATIENT ETT TO VENT, ACVC FI02 45% TV 350 RATE 20, SATURATIONS 100%. PATIENT CURRENTLY IN PRONE POSITION. SOME RHONCHI HEARD AT BILATERAL UPPER LOBES. DIMINISHED AT BASES. S1S2, SR ON MONITOR. SKIN WARM AND DRY, AFEBRILE. OGT IN PLACE TO TUBE FEEDING. NEPRO AT 65ML/HR. REDNESS/DTI TO BUTTOCKS, NONBLANCHABLE. CLOSED WOUND. RIJ AGUILAR CATHETER WITH PIGTAIL IN PLACE. FLUSHED AND PATENT. RIGHT FA, 20G IN PLACE, PATENT, NO SYMPTOMS, INFUSING HEPARIN 1000U/HR-10ML/HR, VERSED-1MG/HR AND MORPHINE 1 MG/HR. RASS -3. DRY WEIGHT 59.8. WITHDRAWS TO DEEP PAIN. CANNOT OPEN EYES. PERRY IN PLACE, MINIMAL OUTPUT, STRAW COLORED URINE. SIDERAILS UP x3, BED LOCKED AND IN LOW POSITION. DROPLET PRECAUTIONS IN PLACE. WILL CONTINUE TO MONITOR.
--- NOTE | 2020-02-23 19:38 | NUR ---
RECEIVED REPORT FROM AM SHIFT. PATIENT SEEN AND ASSESSED. PATIENT IN PRONE POSITION. PATIENT IS INTUBATED WITH ETT SIZE 7.5 AND SECURED WITH ANCHOR-FAST AT 20CM. AUSCULTATION REVEALS BILATERAL RALES/DIMINISHED BREATH SOUNDS. PATIENT ON VENT SETTINGS AC/VC 20, 350, +12, 45% WITH SPO2 OF 100%. VENT PLUGGED IN RED OUTLET, HOB > 30 DEGREES, BVM AT BEDSIDE, AND ALARMS SET AND AUDIBLE. PATIENT IS IN NO APPARENT RESPIRATORY DISTRESS AT THIS TIME. PRN TX NOT INDICATED AT THIS TIME. AIRWAY IS PATIENT. WILL CONTINUE TO MONITOR PATIENT.
[2020-02-23] MEDS: ATORVASTATIN 20 MG TAB PO SCH (20:37)
--- NOTE | 2020-02-23 21:26 | NUR ---
AT APPROXIMATELY 2100, PATIENT'S HEAD AND HAND WERE REPOSITIONED. ETT IS STILL SECURED AND INTACT. AIRWAY IS PATIENT. SUCTIONED SMALL AMOUNT OF YELLOW THICK SECRETIONS FROM ETT. PATIENT IN NO RESPIRATORY DISTRESS AT THIS TIME. RNs AT BEDSIDE. WILL CONTINUE TO MONITOR PATIENT.
--- NOTE | 2020-02-23 21:30 | NUR ---
SCHEDULED MEDICATIONS GIVEN, BLOOD SUGAR 198, COVERED PER SLIDING SCALE. CHECKED RESIDUALS, OVER 225ML. HELD FEEDING AT THIS TIME. TURNED PATIENTS POSITION WITH RT-HEAD AND ARMS. PATIENT HAS A LARGE LOOSE BLACKISH BOWEL MOVEMENT/DIARRHEA. CLEANED AND CHANGED ALL LINEN AND GOWN. PROVIDED SKIN CARE, PERRY CARE. VAP PROTOCOL. SIDERAILS UP, RIJ SECURED AND RIGHT PERIPHERAL IV LINES SECURED. WILL CONTINUE TO MONITOR.
[2020-02-24] VITALS (105 sets, daily range): BP systolic 92–174; BP diastolic 46–88
--- NOTE | 2020-02-24 00:15 | NUR ---
PTT DRAWN FOR HEPARIN DRIP. RNS AT BEDSIDE WITH RT TO REPOSITION HEAD AND ARMS, REMAIN IN PRONE POSITION, REVERSE TRENDELENBURG. PT TOLERATED WELL. PATIENT HAD ANOTHER LARGE LOOSE BOWEL MOVEMENT, BLACK AND LIQUID. PROVIDED PERINEAL CARE, PERRY CARE AND SKIN CARE. SAFETY MEASURES IN PLACE FOR NURSING CARE. SUCTIONED THICK SECRETIONS AND PROVIDED VAP CARE, WILL CONTINUE TO MONITOR.
--- NOTE | 2020-02-24 01:33 | NUR ---
AT APPROXIMATELY 0110, PATIENT'S HEAD AND HAND WERE REPOSITIONED. ETT IS STILL SECURED AND INTACT. AIRWAY IS PATIENT. PATIENT IN NO RESPIRATORY DISTRESS AT THIS TIME. RNs AT BEDSIDE. WILL CONTINUE TO MONITOR PATIENT.
--- NOTE | 2020-02-24 02:10 | NUR ---
PER HEPARIN DRIP PROTOCOL, HOLD HEPARIN DRIP FOR ONE HOUR. HEPARIN DRIP HELD AT THIS TIME, PTT: 157.4. RESTART DRIP AT 0310, REDUCE DOSAGE TO 850 UNITS/HR. WILL CARRY OUT.
--- NOTE | 2020-02-24 05:15 | NUR ---
PATIENT TURNED BACK TO SUPINE POSITION, TOLERATED WELL. ETT SECURED, NO INCIDENT. PATIENT HAD ANOTHER LARGE LOOSE BOWEL MOVEMENT, STOOL IS TURNING MORE BROWN COLOR THAN BLACK NOW. WHEN REPOSITIONING AND ADJUSTING IV LINES, PATIENT STARTED TO WAKE UP. MORE MOVEMENT NOTED. REATTACHED LINES AND CONTINUED INFUSING SEDATION DRIPS, PATIENT BACK TO RASS -3. CHECKED RESIDUALS, TURNED FEEDING BACK ON. SIDERAILS UP x3, HOB 30 DEGREES. SAFETY MEASURES IN PLACE.
[2020-02-24] MEDS: INSULIN LISPRO SLIDING SCALE 100 UNITS/ML VIAL SUBQ PRN ×4 (06:16→21:52)
[2020-02-24] MEDS: BLOOD GLUCOSE MONITORING 1 DEV DEV FS SCH ×4 (06:17→21:52)
[2020-02-24 06:20] LABS: BASOPHILS % (AUTO) 0.1 % (0.0-2.0); EOSINOPHILS # (AUTO) 0.1 K/uL (0-0.4); EOSINOPHILS % (AUTO) 0.6 % (0.0-4.0); HEMATOCRIT 26.1 % (36-48); HEMOGLOBIN 8.6 g/dL (12.0-16.0); LYMPHOCYTES # (AUTO) 0.3 K/uL (2.5-16.5); LYMPHOCYTES % (AUTO) 1.7 % (20.5-51.1); MEAN CORPUSCULAR HEMOGLOBIN 27 pg (27-31); MEAN CORPUSCULAR HGB CONC 33 g/dL (33-37); MONOCYTES # (AUTO) 0.5 K/uL (0.8-1.0); MONOCYTES % (AUTO) 2.6 % (1.7-9.3); NEUTROPHILS # (AUTO) 18.9 K/uL (1.8-7.7); PLATELET COUNT (AUTO) 230 K/uL (140-450); RED BLOOD CELL COUNT(AUTO) 3.23 MIL/uL (4.20-5.40); RED CELL DISTRIBUTION WIDTH 16.4 % (11.6-13.7); WHITE BLOOD COUNT (AUTO) 19.9 K/uL (4.8-10.8)
--- NOTE | 2020-02-24 06:32 | NUR ---
AT APPROXIMATELY 0500, PATIENT WAS PLACED IN SUPINE POSITION. ETT IS SECURED AND INTACT. AIRWAY IS PATENT. NO RESPIRATORY DISTRESS AT THIS TIME. NO CHANGES MADE IN VEST SETTINGS AT THIS TIME. WILL CONTINUE TO MONITOR.
[2020-02-24 07:10] LABS: ALBUMIN 1.4 g/dL (3.4-5.0); ANION GAP 11.3 (8-16); ASPARTATE AMINOTRANSFERASE 79 U/L (15-37); CARBON DIOXIDE 25.9 mmol/L (21-32); CHLORIDE 99 mmol/L (98-107); GFR ARICAN-AMERICAN 13 mL/min (>90); GLUCOSE 223 mg/dL (74-106); POTASSIUM 3.2 mmol/L (3.5-5.1); SODIUM SERUM 133 mmol/L (136-145); TOTAL BILIRUBIN 0.5 mg/dL (0.0-1.0)
--- NOTE | 2020-02-24 07:22 | NUR ---
PT WAS SX W/ SMALL AMT OF SECRETIONS THICK ROONEY BMV AT BEDSIDE VENT PLUGGED INTO RED OUTLET PT IS RESTING COMFORTABLY AT THIS TIME Addendum: 02/24/20 at 0855 by Andrew Esquivel Jr RT PT RECEIVED ON VC VT 350 F 20 PEEP 12 FIO2 45%
[2020-02-24 07:46] LABS: CREATININE 4.3 mg/dL (0.6-1.3); UREA NITROGEN, BLOOD 68 mg/dL (7-18)
--- NOTE | 2020-02-24 07:59 | NUR ---
PTT 115.3. HEPARIN DRIP STOPPED AT THIS TIME FOR 1 HR PER PROTOCOL.
[2020-02-24] MEDS: PANTOPRAZOLE 40 MG INJ VIAL IVP SCH ×2 (08:20→21:29)
[2020-02-24] MEDS: ZINC SULF 220 MG CAP PO SCH (08:21)
[2020-02-24] MEDS: ASPIRIN 81 MG TAB.CHEW GT SCH (08:21)
[2020-02-24] MEDS: LEVOFLOXACIN 250 MG/D5 PREMIX 50 ML IV SCH (08:21)
[2020-02-24] MEDS: ASCORBIC ACID 500 MG/5 ML ORASYR NG SCH (08:21)
--- NOTE | 2020-02-24 08:40 | NUR ---
TYLENOL GIVEN, TEMP 102.0 F, ICE PACK APPLIED TO ARMPITS AND GROIN, NOTIFIED DR FRAIRE.
[2020-02-24] MEDS: ACETAMINOPHEN 325 MG TAB PO PRN (08:52)
[2020-02-24] MEDS ORDERED: KCL 20 MEQ/WATER INJ PREMIX 200 ML IV SCH (09:00)
--- NOTE | 2020-02-24 09:12 | NUR ---
CALLED RT, PT O2 SAT DROPPING TO 83%. VENT ALARM PEAK PRESSURE LOW.
--- NOTE | 2020-02-24 10:10 | NUR ---
FEEDING TUBE AND FEEDING BOTTLE CHANGED. RUNNING AT 65ML/HR, H2O FLUSH 100ML Q6H
--- NOTE | 2020-02-24 10:37 | NUR ---
STAFF REPORT OF CHANGE OF SKIN CONDITION RELATED TO PRONE POSITION: PT. HAS CHANGE OF BREN SCALE RELATED TO ACUTE HYPOXIC RESPIRATORY FAILURE 2/2 COVID-19 INFECTION WITH ARDS AND PULMONARY EDEMA, S/P INTUBATION ON 02/18/20. PT WITH DEEP TISSUE INJURIES TO COCCYX AND L/R INNER BUTTOCK, 100% MAROON COLOR AND LEFT EAR BLISTER WITH SKIN INTACT. POC DISCUSSD WITH DOCTOR AND PRIMARY RN. RECOMMENDATIONS: -APPLY FOAM DRESSING TO COCCYX AND LEFT EAR QD AND PRN IF SOILING, OFFLOADING AND SHIFT WEIGHTS TO BUTTOCKS AND ALL PRESSURE POINT AREAS Q2 HOURS -ASSESS AND MONITOR SKIN CONDITION DURING POSITION CHANGE -OFFLOAD BILATERAL HEELS BY PLACING PILLOWS UNDER CALVES AT ALL TIMES, UNLESS OTHERWISE CONTRAINDICATED -PRESSURE REDISTRIBUTION BY PLACING PILLOWS AND OFFLOADING SACRALCOCCYX -KEEP SKIN CLEAN AND DRY AT ALL TIMES.
[2020-02-24] MEDS ORDERED: FOAM DRESSING TP PRN (11:40)
--- NOTE | 2020-02-24 12:50 | NUR ---
NOTIFIED DR FRAIRE THAT RT HAS INCREASED FIO2 TO 75% AND PEEP TO 14, PT'S RR 28, O2 SAT WENT UP FROM 87% TO 94%.
--- NOTE | 2020-02-24 13:01 | NUR ---
ICU NURSE CALLED AND INFORMED ME PT WAS DESAT FIO2 WAS TITRATED UP TO 75% AND PEEP WAS TITRATED TO 14 DR ECHEVARRIA WAS INFORMED @ 12:40P AND AGREED DR ECHEVARRIA IS ALSO REQUESTING TO PRONE PT PT TOLERATED SETTINGS CHANGE WELL AND IS SPO2 IS AT 95% PT MOVED HER HEAD SLIGHTLY WITH NO ASSISTANCE
--- NOTE | 2020-02-24 13:07 | NUR ---
02/24/20 RD FOLLOW UP COMPLETED PLEASE REFER TO NUTRITION ASSESSMENT UNDER CARE ACTIVITY FOR ESTIMATED NUTRITIONAL NEEDS. 1. CONTINUE NEPRO 1.8 @ 40 ML/HR X 24 HR -THIS WILL PROVIDE 960 ML, 1728 CALORIES, 77 GM OF PROTEIN. THIS WILL MEET 100% OF ESTIMATED NUTRIENT AND PROTEIN NEEDS 2. CONTINUE FREE WATER FLUSH OF 100 ML Q6H PER MD 3. RECOMMEND NEPHRO-BRE DAILY 4. RECOMMEND SWALLOW EVALUATION WHEN PATIENT IS EXTUBATED 5. RD TO FOLLOW-UP 2-3 DAYS, HIGH RISK RITU OG RD
--- NOTE | 2020-02-24 13:59 | NUR ---
PT WAS PRONED AND SETTINGS THAT WERE PREV TITRATED WERE RETURNED TO FIO2 45% PEEP [address] FRAIRE PT WAS PRONED REQUESTED AND SETTINGS WERE TITRATED PT IS DOING WELL AT THIS TIME SPO2 94% WILL CONTINUE TO MONITOR Addendum: 02/24/20 at 1500 by Andrew Esquivel Jr RT DR SULTANA WAS NOTIFIED
--- NOTE | 2020-02-24 14:00 | NUR ---
TURNED PT TO PRONE POSITION. FEEDING HELD. LOWERED FIO2 TO 45%, PEEP TO 12, PT TOLERATED WELL. OPTIFOAMS TO JUANPABLO KNESS, SHOULDERS, WRIST. RIGHT EAR BLISTER WITH VERSETEL DRESSING.
--- NOTE | 2020-02-24 17:45 | NUR ---
WEIGHT SHIFT DONE.
[2020-02-24] MEDS ORDERED: CLINICAL MONITORING MC PRN (18:25)
[2020-02-24] MEDS ORDERED: FLUCONAZOLE 200 MG/NS PREMIX 100 ML IV SCH (18:30)
--- NOTE | 2020-02-24 20:05 | NUR ---
RECEIVED REPORT FROM [facility] NURSE. PATIENT ETT TO VENT, ACVC FI02 45% TV 350 RATE 20 PEEP 12. SATURATIONS 93%. PATIENT CURRENTLY IN PRONE POSITION. DIMINISHED AT BASES. S1S2, SR ON MONITOR. SKIN WARM AND DRY, AFEBRILE-99.3. OGT IN PLACE, CLAMPED. REDNESS/DTI TO BUTTOCKS, NONBLANCHABLE. CLOSED WOUND.OPTIFOAM DRESSING INTACT. RIJ AGUILAR CATHETER WITH PIGTAIL IN PLACE. FLUSHED AND PATENT. RIGHT FA, 20G IN PLACE, PATENT, NO SYMPTOMS, INFUSING HEPARIN 700U/HR-7ML/HR, VERSED-2MG/HR AND MORPHINE 2 MG/HR. RASS -3. DRY WEIGHT 59.8. WITHDRAWS TO DEEP PAIN. CANNOT OPEN EYES. PERRY IN PLACE, MINIMAL OUTPUT, STRAW COLORED URINE. SIDERAILS UP x3, BED LOCKED AND IN LOW POSITION. DROPLET PRECAUTIONS IN PLACE. WILL CONTINUE TO MONITOR.
--- NOTE | 2020-02-24 21:20 | NUR ---
SCHEDULED MEDS GIVEN, BLOOD SUGAR-296, COVERED PER SLIDING SCALE. PATIENT ON SOLUMEDROL. FEEDING REMAINS ON HOLD AT THIS TIME. PROVIDED ORAL CARE. ALL IV LINES INTACT, DRIPS INFUSING. REPOSITIONED FOR COMFORT, FLACC 0 WILL CONTINUE TO MONITOR.
[2020-02-24] MEDS: ATORVASTATIN 20 MG TAB PO SCH (21:29)
[2020-02-24] MEDS: methylPREDNISolone SS 40 MG/ML VIAL IVP SCH (21:30)
--- NOTE | 2020-02-24 23:20 | NUR ---
LABS DRAWN FOR APTT VIA PERIPHERAL SITE. PT TOLERATED WELL. PROVIDED ORAL CARE, PATIENT WITHDRAWS TO SUCTION. SUCTIONED THICK SECRETIONS. TEMP 98.8. SIDERAILS UP, BED LOCKED, PRONE AND REVERSE TRENDELENBURG POSITION. WILL CONTINUE TO MONITOR.
[2020-02-25] VITALS (99 sets, daily range): BP systolic 81–162; BP diastolic 43–84
--- NOTE | 2020-02-25 00:45 | NUR ---
APTT LEVEL WITHIN THERAPEUTIC RANGE, SECOND READING WITHIN RANGE, NO CHANGES TO HEPARIN DRIP. APTT DRAWS NOW DAILY, RESIDENT MD AWARE.
[2020-02-25] MEDS: hePARIN / DEXT 5% PREMIX 250 ML IV SCH (04:00)
--- NOTE | 2020-02-25 04:00 | NUR ---
2 RT's AND 2 RN's TO TURN PATIENT TO SUPINE POSITION. PATIENT TOLERATED FAIRLY, NO INCIDENT. PATIENT SATURATIONS BETWEEN 88-90% INCREASED FI02 TO 55%, SATURATIONS INCREASED TO 92-94%. REPLACED EKG LEADS TO CHEST. FACE IS MORE SWOLLEN. INTACT. PATIENT HAD A MODERATE SIZED BOWEL MOVEMENT, LOOSE AND BROWN. PROVIDED SKIN CARE, PERRY CARE, AND VAP ORAL CARE.CHANGED DRESSING TO BUTTOCKS, OPTIFOAM INTACT. PERRY DRAINING BY GRAVITY, ALL LINES INTACT, SAFETY MEASURES IN PLACE, PATIENT WITHDRAWS TO SUCTIONING, RASS -3, EYES PERRL, SLUGGISH 3MM. HOB 30 DEGREES, RESTARTED TUBE FEEDING AT 50ML, WILL INCREASE IF TOLERATING.
[2020-02-25 06:05] LABS: HEMATOCRIT 24.7 % (36-48); HEMOGLOBIN 8.3 g/dL (12.0-16.0); LYMPHOCYTES # (AUTO) 0.3 K/uL (2.5-16.5); LYMPHOCYTES % (AUTO) 2.1 % (20.5-51.1); MEAN CORPUSCULAR HEMOGLOBIN 27 pg (27-31); MEAN CORPUSCULAR HGB CONC 33 g/dL (33-37); MONOCYTES # (AUTO) 0.3 K/uL (0.8-1.0); MONOCYTES % (AUTO) 1.6 % (1.7-9.3); NEUTROPHILS # (AUTO) 15.7 K/uL (1.8-7.7); NEUTROPHILS % (AUTO) 96.3 % (42.2-75.2); PLATELET COUNT (AUTO) 241 K/uL (140-450); RED BLOOD CELL COUNT(AUTO) 3.01 MIL/uL (4.20-5.40); WHITE BLOOD COUNT (AUTO) 16.3 K/uL (4.8-10.8)
[2020-02-25] MEDS: BLOOD GLUCOSE MONITORING 1 DEV DEV FS SCH ×4 (06:10→20:35)
[2020-02-25] MEDS: INSULIN LISPRO SLIDING SCALE 100 UNITS/ML VIAL SUBQ PRN ×4 (06:11→20:36)
[2020-02-25 06:19] LABS: MAGNESIUM 1.9 mg/dL (1.8-2.4); PHOSPHORUS 3.4 mg/dL (2.5-4.9)
--- NOTE | 2020-02-25 06:35 | NUR ---
REC'D PT ON [place] VENT SETTINGS AC20 VT 350 JPEEP 12 FIO2 55% ALARMS ON AND AUDIBLE AND MVB AT HOB AND VENT IS PLUGGED INTO RED OUTLET, SXN PT SMALL AMT OF THICK WHITE SECRETIONS, B\S ARE DIMINISHED BILATERALLY, PT IS ORALLY INTUBATED WITH 7.5 ETT SECURED WITH ANCHOR FAST AT 21 CM AND PT IS RESTING
[2020-02-25 07:01] LABS: ALBUMIN 1.2 g/dL (3.4-5.0); ANION GAP 13.6 (8-16); CARBON DIOXIDE 26.2 mmol/L (21-32); POTASSIUM 4.8 mmol/L (3.5-5.1); TOTAL BILIRUBIN 0.4 mg/dL (0.0-1.0)
[2020-02-25 07:06] LABS: CREATININE 5.7 mg/dL (0.6-1.3)
--- NOTE | 2020-02-25 07:25 | NUR ---
REPORT GIVEN TO AM NURSE FOR CONTINUITY OF CARE, PATIENT SB TO SR ON MONITOR, O2 SAT 92%, FLACC 0, HEPARIN DRIP AT 700U/HR, MORPHINE 1MG/HR, VERSED 2 MG/HR. VENT SETTINGS: ACVC 55% FI02, TVO 350, RATE 20, PEEP 12. HOB 30 DEGREES, OGT IN PLACE TO TUBE FEEDING-NEPRO. FLACC 0, RASS -3.
--- NOTE | 2020-02-25 07:30 | NUR ---
RECEIVED REPORT FROM PM SHIFT NURSE. SUPINE . BEDSIDE MONITOR SHOWS SB 58S . PT DOES NOT OPEN EYES BUT RESPONSIVE TO PAIN STIMULI. RI AGUILAR CATHETER WITH PIGTAIL IN PLACE RUNNING HEPARIN DRIP AT 700 UNITS/HR. FLUSHED AND PATENT. RIGHT FA, 20G IN PLACE, PATENT, INFUSING VERSED AT 2MG/HR AND MORPHINE 1 MG/HR. RASS -3 BASED ON DRY WEIGHT 59.8 KG .OGT IN PLACE RUNNING NEPRO AT 65 CC/HR WITH WATER FLUSH 100 CC Q 6HR. PERRY IN PLACE, MINIMAL OUTPUT, STRAW COLORED URINE.REDNESS/DTI TO BUTTOCKS, COVERED WITH OPTIFOAM DRESSING . SIDERAILS UP x3, BED LOCKED AND IN LOW POSITION. AIR PRECAUTIONS IN PLACE. WILL CONTINUE TO MONITOR. Addendum: 02/25/20 at 1015 by Nancy Villalobos RN NEPRO AT 50 CC/HR, GOAL 65 CC/HR.
[2020-02-25 07:31] LABS: CKMB RELATIVE INDEX 0.4 (0.0-2.5); CREATINE KINASE MB 0.9 ng/mL (0-3.6)
--- NOTE | 2020-02-25 08:30 | NUR ---
HOLD TUBE FEEDING DUE TO RESIDUAL 280 CC. PT NO FEVER.
[2020-02-25] MEDS: ZINC SULF 220 MG CAP PO SCH (08:58)
[2020-02-25] MEDS: ASCORBIC ACID 500 MG/5 ML ORASYR NG SCH (08:58)
[2020-02-25] MEDS: ASPIRIN 81 MG TAB.CHEW GT SCH (08:58)
[2020-02-25] MEDS: methylPREDNISolone SS 40 MG/ML VIAL IVP SCH ×2 (08:58→20:36)
[2020-02-25] MEDS: PANTOPRAZOLE 40 MG INJ VIAL IVP SCH ×2 (08:59→20:35)
--- NOTE | 2020-02-25 09:55 | NUR ---
NOTIFIED DR. FRAIRE AND DR. MUNOZ. PT'S SBP 90S AFTER I DECREASED VERSED DRIP, BEFORE THAT SBP WAS 87S. O2SATS 91S%, PER DR. FRAIRE AND TAMMY, OK TO KEEP PT SUPINE DUE TO UNSTABLE STATUS.
--- NOTE | 2020-02-25 10:30 | NUR ---
RECHECKED RESIDUAL 280 ML, RETURNED IT BACK. HOLD TUBE FEEDING.
--- NOTE | 2020-02-25 10:53 | NUR ---
CAME TO BEDSIDE TO CHECK PT. UPDATED PT'S CONDITION, PER DR. URIOSTEGUI, PT FIO2 55%, WE DO NOT HAVE TO CHANGE PT TO PRONE POSITION. CHARGE NURSE DAKOTA ALSO MADE AWARE. NOTIFIED DR. FRAIRE.
[2020-02-25] MEDS: DOPamine 400 MG/D5W PREMIX 250 ML IV PRN (11:06)
--- NOTE | 2020-02-25 11:06 | NUR ---
RESTARTED PT ON DOPAMINE DRIP DUE TO PT SBP 87/51.
--- NOTE | 2020-02-25 11:06 | NUR ---
PT RECEIVING DIALYSIS A THIS TIME, PT DESAT TO 86% AND INCREASED FIO2 TO 70% INCREASED PEEP 14 AND O2 SAT INCREASED TO 97% RN STACY NOTIFIED
--- NOTE | 2020-02-25 12:22 | NUR ---
DIALYSIS IN PROCESS.
--- NOTE | 2020-02-25 12:30 | NUR ---
UNABLE TO CHECK BLOOD SUGAR DUE TO ACCU CHECK MACHINE DOES NOT WORK. CHARGE NURSE WENT TO LAB TO GET ANOTHER ONE, DOES NOT WORK EITHER. PER CHARGE NURSE DAKOTA, LAB WILL CALL US BACK FOR NEW MACHINE.
--- NOTE | 2020-02-25 12:33 | NUR ---
RECEIVED PHONE CALL FROM LAB, PT'S APTT 94.6, PER PROTOCOL, HOLD HEPARIN DRIP ONE HOUR AND THEN REDUCE DRIP BY 150 UNITS/HR. WILL CARRY OUT.
--- NOTE | 2020-02-25 13:33 | NUR ---
RESTARTED HEPARIN DRIP AT 550 UNITS/HR=5.5 MLS/HR.
--- NOTE | 2020-02-25 14:00 | NUR ---
DIALYSIS DONE, TOTAL OUTPUT 2000 MLS. Addendum: 02/25/20 at 1600 by Nancy Villalobos RN HEPARIN SODIUM WAS GIVEN BY DIALYSIS DOYLE JORDAN
--- NOTE | 2020-02-25 14:30 | NUR ---
CHECKED BS 298, INSULIN 6 UNITS GIVEN. PT RESIDUAL 260 MLS. STILL HOLD TUBE FEEDING. PT HAD ONE MODERATE AMOUNT OF LOOSE PINKISH BROWN BM, CLEANED PT WITH CHARGE NURSE. PT TOLERATED WELL.
--- NOTE | 2020-02-25 15:05 | NUR ---
PT DONE W/ DIALYSES AND SAT WAS 100% PT RETURNED TO PEEP 12 AND FIO2 TITRATED TO 70%
[2020-02-25] MEDS: FLUCONAZOLE 200 MG/NS PREMIX 100 ML IV SCH (16:44)
--- NOTE | 2020-02-25 17:00 | NUR ---
PT FINGER BS 343, INSULIN 8 UNITS GIVEN ORDERED. HOLD TUBE FEEDING DUE TO RESIDUAL STILL OVER 200 MLS.
--- NOTE | 2020-02-25 18:40 | NUR ---
RECHECKED RESIDUAL ABOUT 180 CC. STILL HOLD TUBE FEEDING. SUCTIONED PT WITH MODERATE AMOUNT OF WHITE MUCOUS. PT TOLERATED WELL.
--- NOTE | 2020-02-25 19:15 | NUR ---
ENDORSED PT TO PM SHIFT RN. PT HR 70,BP120/63,O2 SATS 99%, RR 20 AT THIS TIME.
--- NOTE | 2020-02-25 19:16 | NUR ---
REPORT RECEIVED FROM AM NURSE AT BEDSIDE. PT IN STABLE CONDITION. AAOX0. PT IS SEDATED ON MORPHINE AND VERSED. FLACC 0. NO SOB ON MECHANICAL VENT. VENT SETTINGS FIO2@70%, VT 350, RR20, PEEP 12. AFEBRILE@97.2. PT IS ON BEDREST. PT HAS PERRY. PT HAS OGTUBE. TUBE FEEDINGS CURRENTLY ON PAUSE DUE TO HIGH RESIDUAL. NEPHROVITE@65ML/HR WITH 100ML FLUSH Q6H PATENT AND INTACT. DRY WEIGHT 59.8KG. RASS-3. PT +COVID19. IV SITE R FA 20G RUNNING MORPHINE DRIP@1MG/HR OR 1ML/HR. VERSED@1MG/HR OR 1ML/HR AND NS TKO@5ML/HR PATENT AND INTACT. PT HAS R IJ AGUILAR CATH WITH PIGTAIL RUNNING HEPARIN@550UNITS/HR OR 5.5ML/HR PATENT AND INTACT. SKIN WARM, DRY, AND NOT INTACT DUE TO MULTIPLE DTI. SEE WOUND NOTES. BED LOCKED IN LOW POSITION. CALL JIMENES WITHIN REACH. SAFETY PRECAUTION IN PLACE. ALL NEEDS MET AT THIS TIME.
--- NOTE | 2020-02-25 19:37 | NUR ---
CRITICAL LAB VALUE APPT@125.6. PER PROTOCOL STOP HEPARIN AND DECREASE BY 150UNITS/HR.
--- NOTE | 2020-02-25 19:50 | NUR ---
RECEIVED REPORT FROM AM SHIFT. PATIENT SEEN AND ASSESSED. PATIENT IS INTUBATED WITH ETT SIZE 7.5 AND SECURED WITH ANCHOR-FAST AT 21CM. AUSCULTATION REVEALS BILATERAL COARSE BREATH SOUNDS. PATIENT ON VENT SETTINGS AC/VC 20, 350, +12, 70% WITH SPO2 OF 98%. TITRATED FiO2 TO 65% WITH SPO2 OF 96%. VENT PLUGGED IN RED OUTLET, HOB > 30 DEGREES, BVM AT BEDSIDE, AND ALARMS SET AND AUDIBLE. PATIENT IS IN NO APPARENT RESPIRATORY DISTRESS AT THIS TIME. PRN TX NOT INDICATED AT THIS TIME. SUCTIONED SMALL AMOUNT OF YELLOW THICK SECRETIONS FROM ETT. AIRWAY IS PATIENT. WILL CONTINUE TO MONITOR PATIENT.
[2020-02-25] MEDS ORDERED: CRUSHER, PILL MC ONE (20:15)
--- NOTE | 2020-02-25 20:35 | NUR ---
PROTONIX AND SOLUMEDROL GIVEN IVP. LIPITOR GIVEN THROUGH GTUBE. BS 264. 6 UNITS OF HUMALOG GIVEN. RESIDUAL OF 60ML. WILL RESUME FEEDINGS.
[2020-02-25] MEDS: ATORVASTATIN 20 MG TAB PO SCH (20:36)
--- NOTE | 2020-02-25 20:48 | NUR ---
HEPARIN RESTARTED. RATE CHANGED FROM 550UNITS/HR TO 400UNITS/HR PER PROTOCOL.
--- NOTE | 2020-02-25 23:10 | NUR ---
PT PUT IN PRONE POSITION.
--- NOTE | 2020-02-25 23:14 | NUR ---
AT APPROXIMATELY 2310, PATIENT WAS SUCCESSFULLY PLACED IN PRONE POSITION. AIRWAY IS PATENT. ETT IS SECURED AND INTACT. PATIENT IN NO RESPIRATORY DISTRESS AT THIS TIME. TITRATED FiO2 TO 55% WITH SPO2 98%. RNs AT BEDSIDE. WILL CONTINUE TO MONITOR PATIENT.
[2020-02-26] VITALS (107 sets, daily range): BP systolic 87–163; BP diastolic 48–84
--- NOTE | 2020-02-26 | NUR ---
PT SUCTIONED AND CLEANED UP. PERRY CARE DONE BEFORE PRONING. LINEN CHANGE.
--- NOTE | 2020-02-26 02:00 | NUR ---
PT V/S WNL AND STABLE. PT IN PRONE POSITION. NO S/S OF DISTRESS NOTED.
[2020-02-26 03:12] LABS: BASOPHILS % (AUTO) 0.1 % (0.0-2.0); HEMATOCRIT 25.9 % (36-48); HEMOGLOBIN 8.5 g/dL (12.0-16.0); LYMPHOCYTES # (AUTO) 0.4 K/uL (2.5-16.5); MEAN CORPUSCULAR HEMOGLOBIN 27 pg (27-31); MEAN CORPUSCULAR HGB CONC 33 g/dL (33-37); MEAN CORPUSCULAR VOLUME 82.1 fL (80-94); MONOCYTES # (AUTO) 0.3 K/uL (0.8-1.0); MONOCYTES % (AUTO) 1.8 % (1.7-9.3); NEUTROPHILS # (AUTO) 18.1 K/uL (1.8-7.7); NEUTROPHILS % (AUTO) 96.1 % (42.2-75.2); PLATELET COUNT (AUTO) 278 K/uL (140-450); RED BLOOD CELL COUNT(AUTO) 3.15 MIL/uL (4.20-5.40); RED CELL DISTRIBUTION WIDTH 17.1 % (11.6-13.7)
--- NOTE | 2020-02-26 03:25 | NUR ---
REPOSITION PATIENT HEAD AND HAND AT THIS TIME. ETT IS SECURED AND INTACT. AIRWAY IS PATENT. PATIENT IN NO RESPIRATORY DISTRESS AT THIS TIME. RN AT BEDSIDE. WILL CONTINUE TO MONITOR PATIENT.
--- NOTE | 2020-02-26 03:30 | NUR ---
PT ARM POSITION CHANGE AND FACIAL DIRECTION.
[2020-02-26 03:31] LABS: PHOSPHORUS 4.8 mg/dL (2.5-4.9)
[2020-02-26 03:33] LABS: ALBUMIN 1.3 g/dL (3.4-5.0); ANION GAP 13.4 (8-16); POTASSIUM 4.4 mmol/L (3.5-5.1); TOTAL BILIRUBIN 0.4 mg/dL (0.0-1.0)
--- NOTE | 2020-02-26 03:52 | NUR ---
PTT@59.9. NO CHANGE IN RATE.
[2020-02-26 04:09] LABS: WHITE BLOOD COUNT (AUTO) 18.8 K/uL (4.8-10.8)
[2020-02-26 04:22] LABS: CREATININE 4.6 mg/dL (0.6-1.3)
--- NOTE | 2020-02-26 04:22 | NUR ---
CRITICAL LAB VALUE BUN 75 AND CREATININE 4.6. LABS TRENDING DOWN. NO CHANGE IN ORDERS.
[2020-02-26 04:40] LABS: CKMB RELATIVE INDEX 0.5 (0.0-2.5); CREATINE KINASE MB 1.9 ng/mL (0-3.6)
[2020-02-26] MEDS: BLOOD GLUCOSE MONITORING 1 DEV DEV FS SCH ×4 (06:00→20:43)
--- NOTE | 2020-02-26 06:00 | NUR ---
BS 364. 10 UNITS OF HUMALOG GIVEN.
[2020-02-26] MEDS: INSULIN LISPRO SLIDING SCALE 100 UNITS/ML VIAL SUBQ PRN ×4 (06:01→21:41)
--- NOTE | 2020-02-26 06:13 | NUR ---
PATIENT STILL REMAINS ON SAME VENT SETTINGS. TITRATED Fi02 TO 50%. ABG WAS DONE ON 50%. AIRWAY IS PATENT. ETT IS SECURED AND INTACT. PATIENT STILL REMAINS IN PRONE POSITION. PATIENT IN NO DISTRESS AT THIS TIME. WILL CONTINUE TO MONITOR.
--- NOTE | 2020-02-26 07:15 | NUR ---
REPORT GIVEN TO AM NURSE AT BEDSIDE. PT IN STABLE CONDITION.
--- NOTE | 2020-02-26 07:20 | NUR ---
RECEIVED REPORT FROM SHEET METAL WORKER APPRENTICE RN. PT IS ETT TO VENT, SEDATED RASS-3 MORPHINE AT 1MG/HR, AND VERSED DRIP AT 1MG/HR. OFF DOPAMINE. VENT SETTING, ACVC FIO2 50%, RR 20 PEEP 12. VITALS STABLE, BED LOCKED IN LOWEST POSITION.
[2020-02-26] MEDS: MIDAZOLAM MDV 100 MG in NACL 0.9% 80 ML IV PRN ×2 (08:00→21:43)
[2020-02-26] MEDS: MORPHINE SULFATE 100 MG in NACL 0.9% 90 ML IV PRN (08:00)
--- NOTE | 2020-02-26 08:00 | NUR ---
DIMINISHED BREATH SOUNDS BILATERALLY. ABD SOFT NON DISTENDED. OGT POSITION CONFIRM BY AUSCULTATION. NEPRO FEEDING RUNNING AT 50ML/HR, WATER FLUSH 100ML Q6H. RESIDUALS 40ML. PERRY CATH IN PLACE DRAINING CLOUDY YELLOW URINE. R IJ AGUILAR CATH WITH PIGTAIL, DRESSING INTACT, NO LEAKING. R FA IV 20G, ASYMPTOMATIC. NONBLANCHABLE REDNESS TO BUTTOCKS AREA, OPTIFOAM IN PLACE. TURNED PT'S HEAD TO THE OTHER SIDE. ARMS POSITION ROTATED. FEET AND HIP ELEVATED WITH PILLOWS.
[2020-02-26] MEDS: methylPREDNISolone SS 40 MG/ML VIAL IVP SCH ×2 (08:09→20:52)
[2020-02-26] MEDS: ASCORBIC ACID 500 MG/5 ML ORASYR NG SCH (08:09)
[2020-02-26] MEDS: ZINC SULF 220 MG CAP PO SCH (08:09)
[2020-02-26] MEDS: LEVOFLOXACIN 250 MG/D5 PREMIX 50 ML IV SCH (08:09)
[2020-02-26] MEDS: PANTOPRAZOLE 40 MG INJ VIAL IVP SCH ×2 (08:09→20:52)
[2020-02-26] MEDS: ASPIRIN 81 MG TAB.CHEW GT SCH (08:10)
--- NOTE | 2020-02-26 08:30 | NUR ---
CHG WIPE DONE. BED BATH DONE. PERRY CARE DONE.
--- NOTE | 2020-02-26 11:45 | NUR ---
WENT IN PT'S ROOM WITH RT HOLLY. TURNED PT'S HEAD POSITION, ROTATED ARMS POSITION. LOWERED FIO2 TO 40%.
--- NOTE | 2020-02-26 14:05 | NUR ---
WENT IN PT'S ROOM WITH RT HOLLY. TURNED PT'S HEAD POSITION, ROTATED ARMS POSITION.
--- NOTE | 2020-02-26 14:35 | NUR ---
RIR FILED FOR DTI, BUTTOCK, Unique Id: [id number]
--- NOTE | 2020-02-26 15:00 | NUR ---
FEEDING AND IV PAUSED, PT WAS TURNED TO SUPINE, LEFT LATERAL POSITION. FEEDING AND IV RESTARTED. VITALS CHECKED, STABLE.
--- NOTE | 2020-02-26 15:23 | NUR ---
UNAVOIDABLE PRESSURE ULCER DEVELOP DUE TO SKIN FAILURE, CLINICAL INSTABILITY THAT PREVENT FROM REGULAR REPOSITIONING AND COMORBIDITIES RELATED TO DELAY WOUND HEALING AND FURTHER SKIN BREAKS SUCH INFECTION, ON ANTIINFLAMMATORY AGENT, VERY LOW ALBUMIN LEVEL AND PRONE POSITIONING THE MAJORITY OF TIMES DUE TO MEDICAL REASONS. CALL TO NEXT OF KIN AND SPOKE TO ÁNGELA ALL ABOVE INFORMATION DISCUSSED ALL QUESTIONS ANSWERED.
--- NOTE | 2020-02-26 15:44 | NUR ---
RECD PT ON VENT WITH VENT PLUGGED INTO RED OUTLET, ALARMS AUDIBLE, ET TUBE SECURE AND INTACT, PT IN PRONE POSITION, WITH RN AND TEAM TURNED PT SUPINE. AMBU BAG AT BEDSIDE, WILL CONTINUE TO MONITOR PT.
[2020-02-26] MEDS ORDERED: INSULIN LISPRO 100 UNITS/ML VIAL SUBQ SCH (16:12)
--- NOTE | 2020-02-26 17:30 | NUR ---
O2 SAT 89%, INCREASED FIO2 TO 45%. Addendum: 02/26/20 at 1807 by Dev Cole RN RECHECKED, O2 SAT 94%
--- NOTE | 2020-02-26 18:00 | NUR ---
BLOOD SUGAR 453 ABOUT 2 HRS AFTER 20 UNITS OF HUMALOG, REPORTED TO DR FRAIRE. DR FRAIRE SAID WILL ORDER LANTUS
[2020-02-26] MEDS: INSULIN LANTUS 100 UNITS/ML 10 ML VIAL SUBQ SCH ×2 (18:23→21:40)
--- NOTE | 2020-02-26 18:30 | NUR ---
O2 SAT 89%, INCREASED FIO2 TO 50%, RECHECKED O2 SAT 91%.
--- NOTE | 2020-02-26 19:56 | NUR ---
RECEIVED PT ON DOCUMENTED SETTINGS. VENT PLUGGED INTO RED OUTLET. BMV AT BEDSIDE. ALARMS SET. ETT SECURED AND INTACT. KRISTAL GARCIA FIO2 FROM 40% TO 50%. WILL TITRATE ONCE PT SATURATION IMPROVED. PT IS IN NO DISTRESS. WILL CONT TO MONITOR
--- NOTE | 2020-02-26 20:00 | NUR ---
LATEST PTT OF 47.8. PER PROTOCOL, NO CHANGE IN HEPARIN DRIP RATE. WILL CONTINUE MONITOR PT.
--- NOTE | 2020-02-26 20:00 | NUR ---
PT TO ETT TO VENT- FIO2 50%, TV 350, RATE 20, PEEP 12. NO SIGNS OF DISTRESS OBSERVED. ORAL MUCOSA PINK AND MOIST. PERRY CATHETER IN PLACE DRAINING TO GRAVITY. SIDE RAILS UP, BED IN LOW POSITION. LUNGS ARE DIMINISHED IN ALL QUADRANTS UPON AUSCULTATION. NO RESPIRATORY DISTRESS. OGT TO FEEDING INTACT AND PATENT, RUNNING @50MLS/HR AND 100MLS/6HRS. OFF DOPAMINE, VERSED 1MG/HR, MORPHINE 1ML/HR. HEPARIN DRIP 500UNITS/HR RASS-3 WITHDRAWS TO PAIN. DRY WEIGHT OF 59.8, NON BLANCHABLE REDNESS TO SACRUM OBSERVED, OPTIFOAM IN PLACE. PERIPHERAL LINE G20 TO RIGHT FOREARM WITH NO SIGNS OF INFILTRATION AND REDNESS. RIGHT IJ AGUILAR INTACT. WILL CONTINUE TO MONITOR PT.
[2020-02-26] MEDS: ATORVASTATIN 20 MG TAB PO SCH (20:44)
--- NOTE | 2020-02-26 21:00 | NUR ---
BS: 457. DR RUIZ MADE AWARE. GAVE ORDER TO GIVE 15 UNITS HUMALOG.
--- NOTE | 2020-02-26 21:43 | NUR ---
NEW VERSED BAG HUNG DUE TO OTHER BAG BEING . 85ML WASTED.
--- NOTE | 2020-02-26 22:00 | NUR ---
CALLED RT DUE TO PT DESATTING TO 84%. RT INCREASED FIO2 TO 60%.
[2020-02-27] VITALS (102 sets, daily range): BP systolic 81–179; BP diastolic 45–96
--- NOTE | 2020-02-27 | NUR ---
PT SEDATED RASS-3, EYES CLOSED. OXYGEN SATURATION ON THE 90'S. NO DISTRESS OBSERVED AT THIS TIME. WILL CONTINUE MONITOR.
--- NOTE | 2020-02-27 02:15 | NUR ---
APTT 49.7, PER PROTOCOL,NO CHANGE IN HEPARIN DRIP RATE. WILL CONTINUE TO MONITOR.
--- NOTE | 2020-02-27 02:30 | NUR ---
PT PLACED IN PRONE POSITION. PILLOWS PLACED ON HIGH PRESSURE AREAS. PT SATURATION GREATER THAN 96%.
--- NOTE | 2020-02-27 02:30 | NUR ---
PT PLACED IN PRONE POSITION HEAD TILT TO THE LEFT. ETT SECURED AND INTACT. PATENT AIRWAY. PT IS IN NO DISTRESS. WILL CONT TO MONITOR
--- NOTE | 2020-02-27 04:00 | NUR ---
PT ON PRONE POSITION. NO RESPIRATORY DISTRESS. O2 SATS ABOVE 90'S. WILL CONTINUE TO MONITOR.
--- NOTE | 2020-02-27 05:32 | NUR ---
PT REMAINS ON DOCUMENTED SETTINGS. INC FIO2 TO 50% DUE TO DESATURATION. PATIENT HAS A PATENT AIRWAY. ETT SECURED AND INTACT. WILL CONT TO MONITOR
[2020-02-27 05:59] LABS: HEMATOCRIT 24.6 % (36-48); HEMOGLOBIN 7.9 g/dL (12.0-16.0); MEAN CORPUSCULAR HEMOGLOBIN 27 pg (27-31); MEAN CORPUSCULAR HGB CONC 32 g/dL (33-37); MEAN CORPUSCULAR VOLUME 84.4 fL (80-94); PLATELET COUNT (AUTO) 268 K/uL (140-450); RED BLOOD CELL COUNT(AUTO) 2.91 MIL/uL (4.20-5.40); RED CELL DISTRIBUTION WIDTH 17.1 % (11.6-13.7); WHITE BLOOD COUNT (AUTO) 18.2 K/uL (4.8-10.8)
[2020-02-27] MEDS: BLOOD GLUCOSE MONITORING 1 DEV DEV FS SCH ×3 (06:03→20:00)
--- NOTE | 2020-02-27 06:03 | NUR ---
BS 585. NOTIFIED. ORDERED TO GIVE 15 UNITS OF HUMALOG.
[2020-02-27] MEDS: INSULIN LISPRO SLIDING SCALE 100 UNITS/ML VIAL SUBQ PRN (06:04)
--- NOTE | 2020-02-27 06:35 | NUR ---
LACTIC ACID 2.2. MD NOTIFIED. AWAITING ORDERS.
[2020-02-27 06:53] LABS: ALBUMIN 1.3 g/dL (3.4-5.0); ANION GAP 13.9 (8-16); CARBON DIOXIDE 26.9 mmol/L (21-32); POTASSIUM 4.8 mmol/L (3.5-5.1); TOTAL BILIRUBIN 0.3 mg/dL (0.0-1.0)
[2020-02-27 06:57] LABS: MAGNESIUM 2.1 mg/dL (1.8-2.4); PHOSPHORUS 3.5 mg/dL (2.5-4.9)
--- NOTE | 2020-02-27 07:18 | NUR ---
REPORT GIVEN TO DAY SHIFT RN FOR CONTINUITY OF CARE. ENDORSED.
--- NOTE | 2020-02-27 07:30 | NUR ---
RECEIVED CHANGE OF SHIFT REPORT AT BEDSIDE FROM MULTIGRAPH OPERATOR NURSE. PT IS IN THE PRONE POSITION IN REVERSE TRENDELENBURG POSITION. NO APPARENT SIGNS OF DISTRESS. PT IS UNRESPONSIVE TO VOICE, BUT RESPONSIVE TO LIGHT PAIN. EYES ARE PERRL. 3MM. PT IS ETT TO VENT W/ SETTINGS AT A/CVC FIO2 60%, VT 350, RR 20, PEEP 12. LUNG SOUNDS DIMINISHED THROUGHOUT. UNABLE TO ASSESS HEART TONES. SR ON MONITOR. CAP REFILL <[address] 20ML RESIDUALS. NEPHRO RUNNING AT 65 ML/HR W/ FWF 100 ML Q6HR. PERRY CATHETER IN PLACE. STRAW COLORED URINE NOTED INSIDE TUBING. PT HAS RIJ TRIPLE LUMEN W/ AGUILAR CATHETER PIGTAIL. HEPARIN IS RUNNING AT 500 U/HR. PT ALSO HAS 20G PIV ON THE RIGHT FOREARM, RUNNING VERSED AT 1MG/HR, MORPHINE AT 1 MG/HR, AND NS AT 5ML/HR. BOTH SITES ARE ASYMPTOMATIC, PATENT AND INTACT. PT HAS OPTIFOAM DRESSING THAT IS DRY, CLEAN AND INTACT. BED IS LOCKED IN LOW POSITION. WILL CONTINUE TO MONITOR.
--- NOTE | 2020-02-27 07:41 | NUR ---
RECEIVED PT ON VENT WITH SETTINGS CHARTED IN LEFT SWIM POSITION CHANGED SWIM POSITION TO RT ETT SECURE BREATH SOUNDS PRESENT BILAT MILD COARSE SXN PT WITH MIN AMT OFF WHITE SECS AMBU BAG AT BEDSIDE VENT PLUGGED INTO RED OUTLET WILL CONTINUE TO MONITOR PT ON VENT
--- NOTE | 2020-02-27 08:00 | NUR ---
CHANGED PT'S POSITION WHILE STILL ASSUMING PRONE. ALSO SHIFTED PT'S WEIGHT.
--- NOTE | 2020-02-27 08:30 | NUR ---
DR. SWANSON AT BEDSIDE. RECOMMENDED TO NURSE TO DO A SEDATION VACATION
--- NOTE | 2020-02-27 08:39 | NUR ---
DR. Sonam HOUSTON NOTIFIED OF BMP RESULTS. GAVE ORDER FOR HEMODIALYSIS.
--- NOTE | 2020-02-27 08:45 | NUR ---
DOYLE CUMMINS, HEMODIALYSIS NURSE CALLED AND NOTIFIED OF ORDER FOR HEMODIALYSIS TODAY.
[2020-02-27] MEDS: PANTOPRAZOLE 40 MG INJ VIAL IVP SCH ×2 (08:59→20:50)
[2020-02-27] MEDS ORDERED: INSULIN LANTUS 100 UNITS/ML 10 ML VIAL SUBQ SCH ×2 (09:00)
[2020-02-27] MEDS: methylPREDNISolone SS 40 MG/ML VIAL IVP SCH (09:00)
[2020-02-27] MEDS: ASCORBIC ACID 500 MG/5 ML ORASYR NG SCH (09:01)
[2020-02-27] MEDS: ASPIRIN 81 MG TAB.CHEW GT SCH (09:01)
[2020-02-27] MEDS: ZINC SULF 220 MG CAP PO SCH (09:02)
[2020-02-27] MEDS: hePARIN / DEXT 5% PREMIX 250 ML IV SCH (09:50)
[2020-02-27 10:09] LABS: BASOPHILS % (MANUAL) 0 % (0-2); EOSINOPHILS % (MANUAL) 0 % (0-4); LYMPHOCYTES % (MANUAL) 1 % (20-46); METAMYELOCYTES % 1 % (0-0); MONOCYTES % (MANUAL) 2 % (5-12); MYELOCYTES % 1 % (0-0)
--- NOTE | 2020-02-27 10:30 | NUR ---
BLOOD SUGAR 775. DOCTOR ROYCE MADE AWARE. ORDERED INSULIN DRIP
[2020-02-27 12:25] LABS: ANION GAP 17.8 (8-16); CARBON DIOXIDE 22.1 mmol/L (21-32); POTASSIUM 4.9 mmol/L (3.5-5.1)
[2020-02-27 12:30] LABS: CREATININE 6.4 mg/dL (0.6-1.3)
[2020-02-27] MEDS ORDERED: Z-GUARD PASTE TP ONE (12:53)
[2020-02-27] MEDS: INSULIN REGULAR, HUMAN 100 UNIT in NACL 0.9% 100 ML IV SCH ×4 (13:19→21:00)
--- NOTE | 2020-02-27 13:23 | NUR ---
DIALYSIS NURSE AT PATIENT BEDSIDE, SETTING UP TO START DIALYSIS
--- NOTE | 2020-02-27 13:35 | NUR ---
02/27/20 RD FOLLOW UP COMPLETED PLEASE REFER TO NUTRITION ASSESSMENT UNDER CARE ACTIVITY FOR ESTIMATED NUTRITIONAL NEEDS. 1. RECOMMEND NEPRO 1.8 @ 40 ML/HR X 24 HR OR 960 ML/DAY NEPRO 1.8 WITH PROSOURCE BID AND DIANE BID -THIS WILL PROVIDE 960 ML, 1848 CALORIES, 107 GM OF PROTEIN. THIS WILL MEET 100% OF ESTIMATED NUTRIENT AND PROTEIN NEEDS 2. TITRATE TUBE FEEDING TO MEET 960 ML OF VOLUME/DAY. START AT 40 ML/HR AND INCREASE TOLERATED UNTIL GOAL IS MET 3. CONTINUE FREE WATER FLUSH OF 100 ML Q6H 4. RECOMMEND NEPHRO-BRE DAILY 5. RD TO FOLLOW-UP 2-3 DAYS, HIGH RISK RITU OG RD
--- NOTE | 2020-02-27 13:40 | NUR ---
DIALYSIS HAS STARTED DIALYSIS. BLOOD PRESSURE HAS STARTED TO DECREASE. WILL START DOPAMINE.
[2020-02-27] MEDS ORDERED: INSULIN NPH HUMAN ISOPHANE 100 UNIT/ML VIAL SUBQ SCH (14:00)
[2020-02-27] MEDS: DOPamine 400 MG/D5W PREMIX 250 ML IV PRN ×3 (14:00→14:16)
[2020-02-27] MEDS ORDERED: MORPHINE SULFATE 100 MG in NACL 0.9% 90 ML IV PRN (15:40)
[2020-02-27] MEDS ORDERED: MIDAZOLAM MDV 100 MG in NACL 0.9% 80 ML IV PRN (15:40)
[2020-02-27] MEDS: INSULIN NPH HUMAN ISOPHANE 100 UNIT/ML VIAL SUBQ SCH (16:59)
--- NOTE | 2020-02-27 17:47 | NUR ---
CONTINUED TO MONITOR PT ON VENT WITH SETTINGS CHARTED BREATH SOUNDS PRESENT BILAT SXN PT WITH MIN AMT OFF WHITE SECS ETT SECURE AMBU BAG AT BEDSIDE VENT PLUGGED INTO RED OUTLET
--- NOTE | 2020-02-27 18:00 | NUR ---
SEDATION STOPPED FOR SEDATION VACATION. DOPAMINE STOPPED WELL. VITAL SIGNS ARE STABLE AT THIS TIME
--- NOTE | 2020-02-27 18:30 | NUR ---
DR. FARLEY AT PATIENT BEDSIDE. WILL INSERT FEMORAL LINE ON THE RIGHT SIDE. SEDATION WAS RESUMED AT THIS TIME W/ VERSED AT 1MG/HR AND MORPHINE AT 1MG/HR. WILL ASSIST DOCTOR W/ PROCEDURE.
--- NOTE | 2020-02-27 19:25 | NUR ---
BEDSIDE REPORT RECEIVED FROM AM SHIFT RN. PT SEDATED, RASS -1. ETT TO VENT, FIO2 60%, TV 350, RR 20, PEEP 12. RIJ AGUILAR WITH PIGTAIL INFUSING HEPARIN 500 UNITS/HR. L FOREARM 20G AND LAC 20G, INFUSING VERSED 1 MG/HR, MORPHINE 1ML/HR, INSULIN 4 UNITS/HR. FEMORAL CENTRAL LINE, DOUBLE LUMEN, SALINE LOCKED. OGT TO FEEDING. NO RESIDUALS NOTED. SKIN NON INTACT, SEE WOUND ASSESSMENT. SKIN WARM AND DRY. PERRY CATHETER IN PLACE. DRY WEIGHT 57 KG. HOB 30 DEGREES. BED LOCKED IN LOWEST POSITION. WILL CONTINUE TO MONITOR.
--- NOTE | 2020-02-27 19:25 | NUR ---
CHANGE OF SHIFT REPORT GIVEN TO CASH REGISTER BALANCER NURSE TO ENSURE CONTINUTIY OF CARE.
--- NOTE | 2020-02-27 19:29 | NUR ---
RECEIVED PT ON DOCUMENTED SETTING. VENT PLUGGED INTO RED OUTLET. BMV AT BEDSIDE. ALARMS AUDIBLE AND WORKING. ETT SECURED AND INTACT. PT IS IN NO RESPIRATORY DISTRESS. WILL CONT TO MONITOR
--- NOTE | 2020-02-27 20:00 | NUR ---
BLOOD SUGAR, 277. INSULIN DRIP ADJUSTED PER PROTOCOL. DECREASED TO 3 UNITS.
[2020-02-27] MEDS: ATORVASTATIN 20 MG TAB PO SCH (20:51)
--- NOTE | 2020-02-27 21:00 | NUR ---
PT POSITIONED PRONE, TUBE FEEDINGS HELD. PRESSURES AREAS OFFLOADED. WILL CONTINUE TO MONITOR.
--- NOTE | 2020-02-27 21:00 | NUR ---
PT PLACED IN PRONE POSITION. HEAD TILTED TO THE RIGHT. PATENT AIRWAY. PT IS IN NO DISTRESS. WILL CONT TO MONITOR
--- NOTE | 2020-02-27 23:12 | NUR ---
PT IN PRONE POSITION. RESPIRATIONS EVEN AND UNLABORED. SAFETY PRECAUTIONS IN PLACE. WILL CONTINUE TO MONITOR.
[2020-02-28] VITALS (102 sets, daily range): BP systolic 98–134; BP diastolic 17–69
[2020-02-28] MEDS: INSULIN REGULAR, HUMAN 100 UNIT in NACL 0.9% 100 ML IV SCH ×2
--- NOTE | 2020-02-28 | NUR ---
BLOOD SUGAR 222, DECREASED INSULIN PER PROTOCOL. INSULIN DRIP AT 2 UNITS/HR. WILL CONTINUE TO MONITOR.
[2020-02-28] MEDS: BLOOD GLUCOSE MONITORING 1 DEV DEV FS SCH ×6 (00:07→20:05)
[2020-02-28] MEDS: Z-GUARD PASTE TP SCH ×2 (00:07→11:38)
--- NOTE | 2020-02-28 02:40 | NUR ---
PT SATURATION 88%, CALLED RT. RT AT BEDSIDE, PT SATURATION 92%.
--- NOTE | 2020-02-28 03:45 | NUR ---
AM LABS DRAWN AT BEDSIDE.
[2020-02-28 05:16] LABS: PROTHROMBIN TIME 11.9 secs (10.8-13.4)
--- NOTE | 2020-02-28 05:33 | NUR ---
PT REMAINS ON DOCUMENTED SETTINGS. INC FI02 FROM 60-70% DUE TO LOW SATURATION. PT REMAINS PRONE. ETT SECURED AND INTACT. PT IS IN NO DISTRESS. WILL CONT TO MONITOR
--- NOTE | 2020-02-28 05:40 | NUR ---
PT HAD 1 BM. PT CLEANED. SAFETY PRECAUTIONS IN PLACE. HOB 30 DEGREES. BED LOCKED IN LOWEST POSITION. WILL CONTINUE TO MONITOR.
[2020-02-28 06:22] LABS: BASOPHILS % (AUTO) 0.1 % (0.0-2.0); EOSINOPHILS % (AUTO) 0.1 % (0.0-4.0); HEMATOCRIT 22.5 % (36-48); HEMOGLOBIN 7.3 g/dL (12.0-16.0); LYMPHOCYTES # (AUTO) 0.5 K/uL (2.5-16.5); LYMPHOCYTES % (AUTO) 2.3 % (20.5-51.1); MEAN CORPUSCULAR HEMOGLOBIN 27 pg (27-31); MEAN CORPUSCULAR HGB CONC 33 g/dL (33-37); MEAN CORPUSCULAR VOLUME 82.2 fL (80-94); MONOCYTES # (AUTO) 0.4 K/uL (0.8-1.0); MONOCYTES % (AUTO) 1.8 % (1.7-9.3); NEUTROPHILS # (AUTO) 20.9 K/uL (1.8-7.7); NEUTROPHILS % (AUTO) 95.7 % (42.2-75.2); PLATELET COUNT (AUTO) 227 K/uL (140-450); RED BLOOD CELL COUNT(AUTO) 2.73 MIL/uL (4.20-5.40); RED CELL DISTRIBUTION WIDTH 16.5 % (11.6-13.7); WHITE BLOOD COUNT (AUTO) 21.9 K/uL (4.8-10.8)
--- NOTE | 2020-02-28 06:25 | NUR ---
DR FRAIRE AT BEDSIDE TO ASSESS PT.
[2020-02-28 06:46] LABS: MAGNESIUM 1.5 mg/dL (1.8-2.4); PHOSPHORUS 1.5 mg/dL (2.5-4.9)
[2020-02-28 06:54] LABS: ALBUMIN 1.3 g/dL (3.4-5.0); ANION GAP 10.1 (8-16); CARBON DIOXIDE 29.3 mmol/L (21-32); POTASSIUM 3.4 mmol/L (3.5-5.1); TOTAL BILIRUBIN 0.3 mg/dL (0.0-1.0)
--- NOTE | 2020-02-28 07:00 | NUR ---
RECIVED PT PRONE ON SETTINGS CHARTED BREATH SOUNDS PRESENT BILAT COARSE ETT SECURE SXN PT WITH MIN AMT OFF WHITE SECS VENT PLUGGED INTO RED OUTLET AMBU BAG AT BEDSIDE WILL CONTINUE TO MONITOR PT ON VENT
--- NOTE | 2020-02-28 07:13 | NUR ---
BEDSIDE REPORT GIVEN TO AM SHIFT RN FOR CONTINUITY OF CARE.
[2020-02-28] MEDS: INSULIN NPH HUMAN ISOPHANE 100 UNIT/ML VIAL SUBQ SCH ×2 (07:30→16:03)
--- NOTE | 2020-02-28 07:49 | NUR ---
BLOOD SUGAR 69, STOPPED INSULIN DRIP, RESUMED TUBE FEEDING. NOTIFIED DR FRAIRE. ORDERED TO RECHECK SUGAR IN 1 HR.
--- NOTE | 2020-02-28 07:50 | NUR ---
ADVANCED OGT 6CM.
--- NOTE | 2020-02-28 07:58 | NUR ---
TITRATING FIO2 TO 60%, PT SATING 98%. NO RESPIRATORY DISTRESS.
[2020-02-28] MEDS ORDERED: POTASSIUM PHOSPHATE 15 MM in NACL 0.9% 250 ML IV ONE (08:00)
--- NOTE | 2020-02-28 08:00 | NUR ---
ROTATING ARMS AND HEAD POSITION. BLISTER NOTED ON THE LEFT SIDE OF THE NOSE.
[2020-02-28] MEDS: PANTOPRAZOLE 40 MG INJ VIAL IVP SCH ×2 (08:12→20:06)
[2020-02-28] MEDS: ASCORBIC ACID 500 MG/5 ML ORASYR NG SCH (08:12)
[2020-02-28] MEDS: ZINC SULF 220 MG CAP PO SCH (08:13)
[2020-02-28] MEDS: ASPIRIN 81 MG TAB.CHEW GT SCH (08:13)
[2020-02-28] MEDS: VIT-B COMP/VIT-C/FOLIC ACID 1 TAB PO SCH (08:13)
[2020-02-28] MEDS: LEVOFLOXACIN 250 MG/D5 PREMIX 50 ML IV SCH (08:13)
--- NOTE | 2020-02-28 08:25 | NUR ---
TITRATING FIO2 TO 50%, PT SATING 94%. NO RESPIRATORY DISTRESS.
[2020-02-28] MEDS ORDERED: MAG SULF 2000 MG/WATER PREMIX 100 ML IV SCH (08:30)
[2020-02-28] MEDS ORDERED: SODIUM PHOSPHATE 15 MMOLE in NACL 0.9% 250 ML IV SCH (11:00)
--- NOTE | 2020-02-28 11:00 | NUR ---
TURNED PT TO SUPINE, RIGHT LATERAL. INCREASED FIO2 TO 60%. SAT AT 94%.
--- NOTE | 2020-02-28 11:18 | NUR ---
DR URIOSTEGUI SEEN PT, DR URIOSTEGUI SAID OK TO TUBE FEEDING WHILE ON PRONE.
[2020-02-28] MEDS ORDERED: MIDAZOLAM MDV 50 MG in NACL 0.9% 40 ML IV PRN (11:20)
--- NOTE | 2020-02-28 11:45 | NUR ---
O2 SAT 89%, INCREASE FIO2 TO 65%
--- NOTE | 2020-02-28 11:52 | NUR ---
DECREASED PEEP TO +[address] URIOSTEGUI
--- NOTE | 2020-02-28 12:15 | NUR ---
O2 SAT 88%, INCREASED FIO2 TO 75%.
[2020-02-28] MEDS ORDERED: hePARIN / DEXT 5% PREMIX 250 ML IV SCH ×2 (15:45→15:55)
[2020-02-28] MEDS ORDERED: HEPARIN PER PHARMACY MC PRN (15:45)
--- NOTE | 2020-02-28 15:45 | NUR ---
VERSED TURNED OFF FOR SEDATION VACATION WHICH WAS ORDERED BY DR URIOSTEGUI. DR URIOSTEGUI SAID PT NOT READY FOR WEANING BUT WANTS PT TO HAVE SEDATION VACATION 20-30MIN.
--- NOTE | 2020-02-28 15:50 | NUR ---
REPORT TO DR FRAIRE, THAT PT'S BG 165, WILL GIVEN [address] FRAIRE SAID TO HOLD OFF ON THE INSULIN NPH.
[2020-02-28] MEDS: INSULIN LISPRO SLIDING SCALE 100 UNITS/ML VIAL SUBQ PRN ×2 (15:55→21:00)
--- NOTE | 2020-02-28 16:20 | NUR ---
ASKED DR FRAIRE IF HE WANTS TO GIVE ONE DOSE OF FLUCONAZOLE TODAY OR WAIT FOR AFTER DIALYSIS TOMORROW. DR FRAIRE SAID JUST WAIT FOR TOMORROW'S DIALYSIS.
--- NOTE | 2020-02-28 19:24 | NUR ---
RECEIVED PT ON DOCUMENTED SETTINGS. VENT PLUGGED INTO RED OUTLET. BMV AT BEDSIDE. ALARMS AUDIBLE.ETT SECURED AND INTACT. PT IS IN NO DISTRESS. WILL CONT TO MONITOR
[2020-02-28] MEDS: ATORVASTATIN 20 MG TAB PO SCH (20:05)
--- NOTE | 2020-02-28 20:15 | NUR ---
RECEIVED REPORT FROM DAYSHIFT NURSE, PATIENT NOT IN DISTRESS, ETT TO VENT, ACVC 85% TV 350 RATE 20 PEEP 8. SATURATIONS 89%, BREATHING IS EVEN AND UNLABORED. LUNG SOUNDS ARE CLEAR AT UPPER LOBES BUT DIMINISHED AT BASES. S1S2, SR ON MONITOR. BP STABLE, AFEBRILE. RASS -1. WITHDRAWS TO PAIN, DOES NOT OPEN EYES, GRIMACES WITH TOUCH. VERSED INFUSING 1MG/HR (1ML/HR), MORPHINE 2 MG/HR (2ML/HR) DRY WEIGHT 59.8. HEPARIN INFUSING AT 500 UNITS/HR-5ML/HR. RIGHT IJ AGUILAR CATH WITH PIGTAIL. DRY AND INTACT. PATENT. LEFT ARM 20G, AND LEFT AC 20G, BOTH SITES FLUSHED AND PATENT WITHOUT SYMPTOMS. OGT IN PLACE, CONNECTED TO TUBE FEEDING-NEPRO @ 40ML/HR. ABDOMEN SOFT AND NONTENDER, WITH ACTIVE BOWEL SOUNDS. PERRY IN PLACE, CLOUDY SAW URINE NOTED. SKIN NOT INTACT, BLISTERS TO BILATERAL EARS, SMALL BLISTER TO NOSE, AND DTI/SMALL SKIN TEAR TO SACRUM. OPTIFOAM DRESSING IN PLACE. VERSATEL DRESSINGS TO BLISTERS. PATIENT HAS GENERALIZED EDEMA TO UPPER EXTREMITIES, NONPITTING. HOB 30 DEGREES, SIDERAILS UP x3, BED LOCKED AND IN LOWEST POSITION. WILL CONTINUE TO MONITOR.
--- NOTE | 2020-02-28 21:10 | NUR ---
SCHEDULED MEDICATIONS GIVEN, BLOOD SUGAR 162, 2 UNITS OF HUMALOG GIVEN PER SLIDING SCALE. HELD FEEDING TO CHECK RESIDUALS AND PLACEMENT. CONFIRMED VIA AUSCULTATION. RESIDUALS 45 ML. TOLERATING FEEDING WELL. TURNED AND REPOSITIONED PATIENT, OFFLOADED PRESSURE AREAS. PROVIDED ORAL CARE. SUCTIONED SCANT AMOUNT OF WHITE CREAMY SECRETIONS. WITHDRAWS TO SUCTION, CANNOT FOLLOW COMMANDS. PERRL, 3 MM. FLACC 0, ALL NEEDS MET AT THIS TIME.
--- NOTE | 2020-02-28 23:00 | NUR ---
PATIENT TURNED TO PRONE POSITION, RN AND RT AT BEDSIDE. NO INCIDENT NOTED. PATIENT CLEANED AND PROVIDED SKIN CARE AND VAP ORAL CARE. TOLERATED WELL. WITHDRAWS TO TOUCH/SUCTION. DOES NOT OPEN EYES. FEEDING HELD AT THIS TIME. ALL SAFETY MEASURES IN PLACE. SIDERAILS UP, BED LOCKED AND IN LOW POSITION. REVERSE [place], HEAD OF BED UP. ETT SECURED, OGT CLAMPED. FLACC 0. WILL CONTINUE TO MONITOR.
--- NOTE | 2020-02-28 23:07 | NUR ---
PT PLACED IN PRONE POSITION HEAD TILTED TO THE RIGHT. AIRWAY IS PATENT. PT IS IN NO DISTRESS. WILL CONT TO MONITOR
[2020-02-29] VITALS (82 sets, daily range): BP systolic 84–152; BP diastolic 45–93
--- NOTE | 2020-02-29 00:34 | NUR ---
TEMP 99.1, NO SIGNS OF DISTRESS, EKG LEADS SECURED TO BACK, REMAINS IN PRONE POSITION WITH SETTINGS SAME START OF SHIFT, SATURATIONS 97%, ALL OTHER VITALS WNL. OPTIFOAM DRESSINGS AT [place] PROMINENCES. SAFETY MEASURES IN PLACE.
[2020-02-29] MEDS: BLOOD GLUCOSE MONITORING 1 DEV DEV FS SCH ×6 (00:50→20:00)
--- NOTE | 2020-02-29 01:15 | NUR ---
RESIDENT MD MADE AWARE PATIENTS BLOOD SUGAR 185, BUT FEEDING HELD AT THIS TIME DUE TO PRONE POSITIONING. OK TO HOLD INSULIN PER SLIDING SCALE, WILL RECHECK SUGAR AT 0400.
[2020-02-29] MEDS: Z-GUARD PASTE TP SCH ×2 (01:17→13:00)
--- NOTE | 2020-02-29 04:00 | NUR ---
AFEBRILE, ALL VITALS WNL. CHECKED SUGAR-139, NO COVERAGE NEEDED. PROVIDED ORAL CARE. PATIENT HAS SMALL AMOUNT OF SECRETIONS SUCTIONED AT MOUTH. SMALL COUGH/GAG REFLEX NOTED. PROVIDED PERRY CARE AND SPONGE BATH. SMALL SKINTEAR TO SACRUM/DTI, BARRIER CREAM APPLIED AND DRESSING IN PLACE. ALL SAFETY MEASURES IN PLACE.
--- NOTE | 2020-02-29 05:02 | NUR ---
PT REMAINS IN PRONE POSITION ON DOCUMENTED SETTINGS. VENT PLUGGED INTO RED OUTLET. BMV HEAD OF BED. ETT SECURED ANT INTACT. PT IS IN A SWIMMING POSITION HEAD TILT TO THE RIGHT. DECREASED FI02 FROM 85% TO 60%. SATURATION REMAINS GOOD. WILL CONT TO MONITOR
[2020-02-29 06:30] LABS: ALBUMIN 1.1 g/dL (3.4-5.0); ANION GAP 13.8 (8-16); MAGNESIUM 3.2 mg/dL (1.8-2.4); PHOSPHORUS 3.1 mg/dL (2.5-4.9); POTASSIUM 3.8 mmol/L (3.5-5.1); TOTAL BILIRUBIN 0.3 mg/dL (0.0-1.0)
[2020-02-29 07:23] LABS: CREATININE 5.2 mg/dL (0.6-1.3)
--- NOTE | 2020-02-29 07:30 | NUR ---
RECEIVED REPORT FROM NIGHT NURSE. PT IN PRONE POSITION TO BE SUPINED AT 1100AM AFTER 12 HOURS. NO RESPIRATORY DISTRESS NOTED ON ETT TO VENT FI02 55 TIDAL VOLUME 350 RR 20. SACRAL WOUND PRESENT. PERRY CATH IN PLACE.PT SEDATED RASS -1 RECEIVING MORPHINE AND VERSED. COVID POSITIVE, DROPLET PRECAUTIONS IN PLACE. WILL CONTINUE TO MONITOR.
--- NOTE | 2020-02-29 07:35 | NUR ---
RECEIVED ON A FOCUS RESEARCH R860 VENTILATOR PLUGGED INTO RED OUTLET TOLERATING WELL WITHOUT ADVERSE REACTIONS NOTED TO AN ENDOTRACHEAL TUBE #7.5 SECURED AT 21cm WITH AN ANCHOR FAST CUFF PRESSURE CHECKED NOTED AMBU BAG AT BEDSIDE SEDATED RESTING WELL WITHOUT PULMONARY DISTRESS NOTED EQUAL CHEST RISE GOOD AERATION THROUGHOUT BILATERAL LUNG BARRON AIRWAY PATENT SATURATION 97 ON FIO2 OF 60% TITRATED FIO2 TO 55%; PEEP TO 6 cmH2O GERMAN TUTOR TO NOTIFY DAY/RN Addendum: 02/29/20 at 0752 by [place] RT [place]/KRISTAL NOTIFIED OF VENTILATOR CHANGES NOTED
--- NOTE | 2020-02-29 07:35 | NUR ---
PATIENT REMAINS IN PRONE POSITION
[2020-02-29] MEDS: INSULIN NPH HUMAN ISOPHANE 100 UNIT/ML VIAL SUBQ SCH ×2 (08:00→16:30)
--- NOTE | 2020-02-29 08:00 | NUR ---
BLOOD GLUCOSE CHECK 136 NO INSULIN COVER NEEDED.
[2020-02-29] MEDS: PANTOPRAZOLE 40 MG INJ VIAL IVP SCH ×2 (08:14→22:30)
[2020-02-29] MEDS: ASCORBIC ACID 500 MG/5 ML ORASYR NG SCH (08:15)
[2020-02-29] MEDS: VIT-B COMP/VIT-C/FOLIC ACID 1 TAB PO SCH (08:17)
[2020-02-29] MEDS: ASPIRIN 81 MG TAB.CHEW GT SCH (08:18)
[2020-02-29] MEDS: ZINC SULF 220 MG CAP PO SCH (08:18)
--- NOTE | 2020-02-29 08:45 | NUR ---
dr. posadas at [facility] , no oeder changed.
[2020-02-29] MEDS ORDERED: ENOXAPARIN 40 MG/0.4 ML SYR SUBQ SCH (09:00)
--- NOTE | 2020-02-29 09:13 | NUR ---
REMAINS IN PRONE POSITION GOOD CHEST RISE AND AERATION THROUGH BILATERAL LUNG BARRON SATURATION DESCENDING TO 89% (CORRELATING) INCREASED FIO2 TO 60% [place]/RN NOTIFIED
[2020-02-29 10:10] LABS: HEMATOCRIT 20.1 % (36-48); MEAN CORPUSCULAR HEMOGLOBIN 27 pg (27-31); MEAN CORPUSCULAR HGB CONC 33 g/dL (33-37); MEAN CORPUSCULAR VOLUME 81.7 fL (80-94); PLATELET COUNT (AUTO) 189 K/uL (140-450); RED BLOOD CELL COUNT(AUTO) 2.46 MIL/uL (4.20-5.40); RED CELL DISTRIBUTION WIDTH 16.5 % (11.6-13.7); WHITE BLOOD COUNT (AUTO) 21.3 K/uL (4.8-10.8)
[2020-02-29 10:16] LABS: HEMOGLOBIN 6.5 g/dL (12.0-16.0)
[2020-02-29 10:27] LABS: EOSINOPHILS % (MANUAL) 1 % (0-4); LYMPHOCYTES % (MANUAL) 3 % (20-46); MONOCYTES % (MANUAL) 2 % (5-12)
--- NOTE | 2020-02-29 10:45 | NUR ---
REPOSITIONED PT FROM PRONE POSITION TO SUPINE POSITION. PT TOLERATED REPOSITIONING FAIRLY. VITAL SIGNS STABLE AT THIS TIME. HOB 30 DEGREES, BED IS LOCKED IN LOW POSITION. WILL CONTINUE TO MONITOR
--- NOTE | 2020-02-29 10:56 | NUR ---
NO DISTRESS NOTED GOOD CHEST RISE
--- NOTE | 2020-02-29 11:15 | NUR ---
STOP MORPHINE AND VERSED IV DRIP FOR SEDATION VACATION. RT AT BEDSIDE.
--- NOTE | 2020-02-29 11:16 | NUR ---
RECEIVED CALL FROM PHARMACY INFORMING OF PTS HEMOGLOBIN OF 6.5 CALLED RESIDENTS AND NOTIFIED DR VIERA.
--- NOTE | 2020-02-29 11:30 | NUR ---
MIDDLE CARD TENDER CALLED OT BEDSIDE FOR DESCENDING SATURATION TO 85%-87% ASSESSMENT COMPLETED SEDATED EQUAL CHEST RISE BREATH SOUNDS CLEAR WITH GOOD AERATION THROUGHOUT BILATERAL LUNG BARRON REVIEWED HEMATOLOGY 0N 02/29/2020 AT 0400 Hgb 6.5 g/dl REFERENCE RANGE 12.0-16.0 INCREASED FIO2 TO 70% TO KEEP SATURATION GREATER THAN 90% JOHAN/RN AT BEDSIDE AWARE OF INCREASED FIO2 AND Hgb
[2020-02-29 11:58] LABS: PROTHROMBIN TIME 10.8 secs (10.8-13.4)
[2020-02-29] MEDS: ACETAMINOPHEN 325 MG TAB PO SCH ×3 (12:00→20:11)
[2020-02-29] MEDS: FUROSEMIDE 20 MG TAB PO SCH ×2 (12:00→16:00)
--- NOTE | 2020-02-29 12:00 | NUR ---
PATIENT STILL STILL SLEEPY NOT RESPONSE TO COMMAND,
--- NOTE | 2020-02-29 13:00 | NUR ---
HD NURSE FOUND THAT THE AGUILAR IS NO BLOOD FLOW . DR. HOUSTON NOTIFIED. HE ORDERED CATH FLOW 2MG TO EACH PORT WAIT 3 HRS AND FLUSH. CONTINUR HEMODIALYSIS WHEN THE CATH. IS FUNCTION.
--- NOTE | 2020-02-29 13:24 | NUR ---
MEDICATIONS ADMINISTERED PER ORDER, PT TOLERATED WELL, NO DISTRESS NOTED, RASS -2. RESIDUAL CHECK DONE 60ML, TUBE FEEDING RESUMED. BLOOD SUGAR CHECK 67, TWO PACKS OF SUGAR GIVEN. WILL REASSESS BLOOD SUGAR. PT REPOSITIONED. SAFETY MEASURES IN PLACE. WILL CONTINUE TO MONITOR.
[2020-02-29] MEDS ORDERED: ALTEPLASE 2 MG VIAL MC SCH (13:30)
--- NOTE | 2020-02-29 13:35 | NUR ---
CATH FLOW GIVEN ORDERED.
--- NOTE | 2020-02-29 16:30 | NUR ---
BLOOD GLUCOSE CHECK 76 NOTIFIED , ORDERED TO HOLD HUMALIN N FOR THIS TIME.
--- NOTE | 2020-02-29 16:40 | NUR ---
PT.REMAIN VERY LETHARGIC , VERSED AND MORPHINE IV DRIP D/C BY .
--- NOTE | 2020-02-29 17:12 | NUR ---
BLOOD SUGAR CHECKED 79, SCHEDULED NPH INSULIN HELD. PERRY CARE GIVEN. ORAL VAP CARE GIVEN. PT REPOSITIONED. URINE COLLECTED 75ML. MEDICATIONS ADMINISTERED PER ORDER, PT TOLERATED WELL. RESIDUALS CHECKED, 70ML. TUBE FEEDING RESUMED. WILL CONTINUE TO MONITOR.
[2020-02-29] MEDS ORDERED: ALBUMIN HUMAN 25% 100 ML IV ONE (17:25)
--- NOTE | 2020-02-29 17:35 | NUR ---
NO DISTRESS NOTED GOOD CHEST RISE ENDOTRACHEAL SUCTION FOR MODERATE THICK YELLOW SECRETIONS AIRWAY PATENT
--- NOTE | 2020-02-29 19:30 | NUR ---
BEDSIDE REPORT RECEIVED FROM AM SHIFT RN. SINUS RHYTHM ON MONITOR. PT IS LETHARGIC, OFF SEDATION. ETT TO VENT. AC/VC MODE FIO2 70%, TV 350, RR 20, PEEP 6. IV SITE, CHAPARRO SHEIKH WITH PIGTAIL, INTACT, PATENT, SALINE LOCKED. R FEMORAL DOUBLE LUMEN CENTRAL LINE, INTACT, PATENT, SALINE LOCKED. LFA 20G AND LAC 20G, BOTH INTACT AND PATENT, SALINE LOCKED. OGT TO FEEDING. 50ML RESIDUALS NOTED. SKIN NON INTACT, SEE WOUND ASSESSMENT. AFEBRILE. CAP REFILL LESS THAN [address]DS[address] PERRY CATHETER IN PLACE. HOB 30 DEGREES. BED LOCKED IN LOWEST POSITION. WILL CONTINUE TO MONITOR.
--- NOTE | 2020-02-29 19:30 | NUR ---
REPORT GIVE TO JAYASHREE GIRALDO,
--- NOTE | 2020-02-29 19:30 | NUR ---
PATIEN OFF FROM SEDATION
[2020-02-29] MEDS ORDERED: ALBUMIN HUMAN 25% 50 ML IV ONE ×4 (19:40→20:15)
--- NOTE | 2020-02-29 19:58 | NUR ---
RECEIVED REPORT FROM AM SHIFT. PATIENT SEEN AND ASSESSED. PATIENT IS INTUBATED WITH ETT SIZE 7.5 AND SECURED WITH ANCHOR-FAST AT 21CM. AUSCULTATION REVEALS BILATERAL COARSE BREATH SOUNDS. PATIENT ON VENT SETTINGS AC/VC 20, 350, +6, 70% WITH SPO2 OF 92%. VENT PLUGGED IN RED OUTLET, HOB > 30 DEGREES, BVM AT BEDSIDE, AND ALARMS SET AND AUDIBLE. PATIENT IS IN NO APPARENT RESPIRATORY DISTRESS AT THIS TIME. PRN TX NOT INDICATED AT THIS TIME. SUCTIONED SMALL AMOUNT OF YELLOW THICK SECRETIONS FROM ETT. AIRWAY IS PATIENT. WILL CONTINUE TO MONITOR PATIENT.
--- NOTE | 2020-02-29 20:00 | NUR ---
BLOOD TRANSFUSION STARTED AND SLASHER SAWYER TO START HEMODIALYSIS.
--- NOTE | 2020-02-29 22:00 | NUR ---
HEMODIALYSIS COMPLETED BY FRONT DESK SPECIALIST. 2.6 L REMOVED.
--- NOTE | 2020-02-29 22:15 | NUR ---
DURING DIALYSIS PATIENT WAS DESATURATING. RT AT BEDSIDE. INCREASE FiO2 TO 80% WITH IMPROVEMENT IN SPO2. PEEP WAS INCREASED TO 8 cmH20 WITH SPO2 OF 92%. TITRATED FiO2 BACK TO 70% AND PEEP 6 WITH SPO2 OF 92% AFTER DIALYSIS. WILL CONTINUE TO MONITOR.
[2020-02-29] MEDS: ATORVASTATIN 20 MG TAB PO SCH (22:30)
[2020-03-01] VITALS (59 sets, daily range): BP systolic 121–163; BP diastolic 55–132
--- NOTE | 2020-03-01 | NUR ---
BLOOD SUGAR 181, 2 UNITS OF HUMALOG GIVEN.
[2020-03-01] MEDS: BLOOD GLUCOSE MONITORING 1 DEV DEV FS SCH ×6 (00:27→20:00)
[2020-03-01] MEDS: Z-GUARD PASTE TP SCH ×2 (00:28→13:07)
--- NOTE | 2020-03-01 01:40 | NUR ---
TITRATED PEEP TO 8 cmH20 DUE TO PATIENT DESATURATING (SPO2 85%). SPO2 INCREASED TO 94%. WILL CONTINUE TO MONITOR.
--- NOTE | 2020-03-01 02:15 | NUR ---
O2 SATURATION 87%. CALLED RT. SUCTIONED AND REPOSITIONED PT. O2 SATURATION AT 92%.
--- NOTE | 2020-03-01 04:00 | NUR ---
BLOOD SUGAR 151, 2 UNITS OF HUMALOG GIVEN
[2020-03-01] MEDS: INSULIN LISPRO SLIDING SCALE 100 UNITS/ML VIAL SUBQ PRN ×3 (05:00→08:39)
[2020-03-01 05:21] LABS: BASOPHILS % (AUTO) 0.1 % (0.0-2.0); EOSINOPHILS # (AUTO) 0.5 K/uL (0-0.4); EOSINOPHILS % (AUTO) 2.6 % (0.0-4.0); HEMATOCRIT 24.5 % (36-48); LYMPHOCYTES # (AUTO) 0.4 K/uL (2.5-16.5); MEAN CORPUSCULAR HEMOGLOBIN 27 pg (27-31); MEAN CORPUSCULAR HGB CONC 33 g/dL (33-37); MEAN CORPUSCULAR VOLUME 81.8 fL (80-94); MONOCYTES # (AUTO) 0.4 K/uL (0.8-1.0); NEUTROPHILS # (AUTO) 16.6 K/uL (1.8-7.7); PLATELET COUNT (AUTO) 189 K/uL (140-450); RED CELL DISTRIBUTION WIDTH 15.8 % (11.6-13.7); WHITE BLOOD COUNT (AUTO) 17.9 K/uL (4.8-10.8)
--- NOTE | 2020-03-01 06:05 | NUR ---
O2 SATURATION 88%-89% CALLED RT. RT AWARE AND MD AWARE. WILL CONTINUE TO MONITOR PT.
[2020-03-01 06:09] LABS: ANION GAP 13.7 (8-16); CARBON DIOXIDE 27.9 mmol/L (21-32); CREATININE 3.9 mg/dL (0.6-1.3); POTASSIUM 3.6 mmol/L (3.5-5.1); TOTAL BILIRUBIN 1.2 mg/dL (0.0-1.0)
[2020-03-01 07:03] LABS: LYMPHOCYTES % (AUTO) 2.5 % (20.5-51.1); NEUTROPHILS % (AUTO) 92.8 % (42.2-75.2)
--- NOTE | 2020-03-01 07:20 | NUR ---
RECEIVED REPORT FROM NIGHT NURSE JAYASHREE. PT IN SUPINE POSITION, OFF SEDATION BUT REMAINS AT RASS -2. PT IS ETT TO VENT AT 70% TV 350 PEEP 8 RR20 O2 SAT 88%. OGET TO TUBE FEEDING WITH NEPRO AT 40 ML WITH WATER FLUSH 100ML Q6. R IJ AGUILAR CATH PIGTAIL, L FA 20G, L AC 20G AND R FEMORAL AGUILAR CATH DOUBLE LUMEN PATENT AND ASYMPTOMATIC. PERRY IN PLACE. SKIN NON INTACT WITH BILATERAL SACRAL DTI. DROPLET PRECAUTIONS IN PLACE. WILL CONTINUE TO MONITOR.
--- NOTE | 2020-03-01 07:20 | NUR ---
BEDSIDE REPORT GIVEN TO AM SHIFT RN FOR CONTINUITY OF CARE.
[2020-03-01] MEDS: INSULIN NPH HUMAN ISOPHANE 100 UNIT/ML VIAL SUBQ SCH ×2 (07:30→16:57)
[2020-03-01 07:35] LABS: MAGNESIUM 2.3 mg/dL (1.8-2.4); PHOSPHORUS 2.6 mg/dL (2.5-4.9)
[2020-03-01] MEDS: ZINC SULF 220 MG CAP PO SCH (08:05)
[2020-03-01] MEDS: PANTOPRAZOLE 40 MG INJ VIAL IVP SCH ×2 (08:05→21:00)
[2020-03-01] MEDS: ASPIRIN 81 MG TAB.CHEW GT SCH (08:05)
[2020-03-01] MEDS: ASCORBIC ACID 500 MG/5 ML ORASYR NG SCH (08:05)
[2020-03-01] MEDS: FLUCONAZOLE 200 MG/NS PREMIX 100 ML IV SCH (08:06)
[2020-03-01] MEDS: VIT-B COMP/VIT-C/FOLIC ACID 1 TAB PO SCH (08:06)
--- NOTE | 2020-03-01 08:41 | NUR ---
MEDICATIONS ADMINISTERED PER ORDER. PT TOLERATED WELL. FEEDING RESIDUALS 170ML, WILL CONTINUE FEEDING AT 40ML/H. TEMP 98.8. PT REPOSITIONED AT THIS TIME. WILL CONTINUE TO MONITOR.
[2020-03-01] MEDS ORDERED: HEPARIN PER PHARMACY MC PRN ×2 (09:35)
--- NOTE | 2020-03-01 09:35 | NUR ---
03/01/20 RD FOLLOW UP COMPLETED PLEASE REFER TO NUTRITION PROGRESS NOTE UNDER CARE ACTIVITY FOR ESTIMATED NUTRITION NEEDS. RD RECOMMENDATIONS: 1. CONTINUE NEPRO @ 40ML/HR X 24 HR WITH FLUSH 100 ML Q6H. THIS PROVIDES 1728 KCAL, 78 GM PROTEIN, AND 698 ML FREE WATER (1098 ML FREE WATER TOTAL WITH FLUSHES), WHICH MEETS 96% UPPER-END KCAL NEEDS AND 65% UPPER-END PROTIEN NEEDS; ADEQUATE KCAL, INADEQUATE PROTEIN. 2. CONTINUE PROSOURCE BID; THIS PROVIDES ADDITIONAL 60 KCAL AND 30 GM PROTEIN. WITH PROTEIN SUPPLEMENTATION, TF + SUPPLEMENT PROVIDES 108 GM PROTEIN WHICH MEETS 90% UPPER-END PROTEIN NEEDS; ADEQUATE. 3. CONTINUE FREE WATER FLUSH OF 100 ML Q6H 4. CONTINUE NEPHRO-BRE DAILY 5. RD TO FOLLOW-UP 2-3 DAYS, HIGH RISK BEREKET GREGG, MS, RDN
[2020-03-01] MEDS: LEVOFLOXACIN 250 MG/D5 PREMIX 50 ML IV SCH (09:50)
--- NOTE | 2020-03-01 10:15 | NUR ---
PTT ANASTACIO FROM RIGHT IJ CVC.
--- NOTE | 2020-03-01 10:15 | NUR ---
DR GARCIA CALLED, OK TO TURN PT TO PRONE.
--- NOTE | 2020-03-01 10:25 | NUR ---
G TUBE AUSCULTATED, POSITIVE POSITION. DIANE AND PROSOURCE GIVEN. STARTED NEW FEEDING BOTTLE AND TUBING.
--- NOTE | 2020-03-01 11:00 | NUR ---
TURNED PT TO PRONE POSITION. PILLOWS TO LEGS AND BILATERAL HIPS. Addendum: 03/01/20 at 1133 by Dev Cole RN HEAD SUPPORTED WITH FOAM PILLOW. Addendum: 03/01/20 at 1142 by Dev Cole RN FEEDING TURNED OFF
[2020-03-01] MEDS: hePARIN / DEXT 5% PREMIX 250 ML IV SCH (11:13)
--- NOTE | 2020-03-01 12:45 | NUR ---
PT VOMITED, TURNED PT'S HEAD SIDEWAY, NASAL AND ORAL SUCTION DONE, CLEANED PT UP, LINEN CHANGED. CHECKED G TUBE RESIDUAL 60ML. TURNED PT BACK TO SUPINE. RETURN G TUBE RESIDUAL. CHANGED R IJ CVC DRESSING, STERIL TECHNIQUES USED.
--- NOTE | 2020-03-01 13:05 | NUR ---
CALLED DR GARCIA, REPORT THAT PT VOMITED AFTER PRONING. PT HAS BEEN TURNED BACK TO SUPINE. REPORTED PT IS [place], INCREASED FIO2 TO 80%, PEEP IS AT 10. DR GARCIA SAID TO CALL DR HODGES. PAGED DR HODGES WHO CALLED BACK AT 1315. REPORTED VITALS HR 116, BP 163/71, RR 30, O2 SAT 89% AND VENT SETTING. ALSO THAT PT IS OPENING HER EYES BY HERSELF AND MOVING ARMS. DR HODGES ORDERED TO START PROPOFOL DRIP, KEEP PT RASS -2, GETTING HER BREATHING RATE DOWN TO NORMAL. KEEP PT NPO AT THIS TIME.
[2020-03-01] MEDS ORDERED: ALTEPLASE 2 MG VIAL MC SCH (13:30)
[2020-03-01] MEDS: PROPOFOL 1000 MG/100 ML PREMIX 100 ML IV PRN (13:41)
--- NOTE | 2020-03-01 15:48 | NUR ---
PT REPOSITIONED AT THIS TIME. PERRY CARE GIVEN. BLOOD GLUCOSE CHECKED 95, NO INSULIN COVERAGE NEEDED. OG TUBE PLACEMENT VERIFIED AND RESIDUALS ARE 0ML. CALLED DR GARCIA, SHE SAID OK TO RESUME FEEDING AT 40ML. TEMPERATURE 98.9. WILL CONTINUE TO MONITOR.
--- NOTE | 2020-03-01 16:19 | NUR ---
CALLED DR GARCIA, REPORT PT'S BLOOD SUGAR 95, SUPINE POSITION, CHECKED G TUBE RESIDUAL 0ML. DR GARCIA SAID OK TO RESUME TUBE FEEDING.
--- NOTE | 2020-03-01 17:30 | NUR ---
DR HODGES CAME AND SEEN PT, DR HODGES AGREES WITH PROPOFOL AT MINIMAL DOSE 5MCG/KG/MIN
[2020-03-01] MEDS ORDERED: MORPHINE SULFATE 50 MG in NACL 0.9% 45 ML IV PRN (17:40)
--- NOTE | 2020-03-01 18:19 | NUR ---
MET WITH DR. HODGES AT BEDSIDE. ORDERS TO PLACE PT ON A PEEP OF 10 AND TITRATE NECESSARY.
--- NOTE | 2020-03-01 19:30 | NUR ---
RECEIVED PT FROM DAY SHIFT RN PT DRY WEIGHT IS 59.8 KG RASS -2, PT IS ON PROPOFOL 5 MCG/KG/HR HEPARIN 1000 UNITS/HR AND IVF. PT LUNG SOUNDS DIMINISHED, S1 AND S2 HEART SOUNDS HEARD WITH PULSES PALPABLE UPPER AND LOWER EXTREMITIES BILATERAL, BOWEL SOUNDS PRESENT, PT RESIDUALS 300 ML FEEDING HELD. PT HAS ETT TO VENT AC/PC FIO2 80 RR 20 PEEP 10, PT HAS RIJ QUITIN CATH WITH PIG TAIL LEFT AC AND FOREARM BOTH 20 G. VITALS STABLE HOB 30 DEGREES PER PROTOCOL WITH SAFETY PROTOCOL IN PLACE, VITALS STABLE AT THIS TIME WILL CONTINUE TO MONITOR PT. Addendum: 03/02/20 at 0450 by Alexy Jordan RN PT ON BILATERAL WRIST RESTRAINTS, SKIN CIRCULATION CHECKED AND WITHIN NORMAL LIMITS. PT HAS SKIN TEAR TO BUTTOCKS, BLISTERS ON EARS, PT HAS PERRY CATHETER IN PLACE DRAINING CLEAR YELLOW URINE
--- NOTE | 2020-03-01 19:34 | NUR ---
RECEIVED REPORT FROM AM SHIFT. PATIENT SEEN AND ASSESSED. PATIENT IS INTUBATED WITH ETT SIZE 7.5 AND SECURED WITH ANCHOR-FAST AT 21CM. AUSCULTATION REVEALS BILATERAL COARSE BREATH SOUNDS. PATIENT ON VENT SETTINGS AC/VC 20, 350, +10, 80% WITH SPO2 OF 92%. VENT PLUGGED IN RED OUTLET, HOB > 30 DEGREES, BVM AT BEDSIDE, AND ALARMS SET AND AUDIBLE. PATIENT IS IN NO APPARENT RESPIRATORY DISTRESS AT THIS TIME. PRN TX NOT INDICATED AT THIS TIME. SUCTIONED SCANT AMOUNT OF YELLOW THICK SECRETIONS FROM ETT. AIRWAY IS PATIENT. WILL CONTINUE TO MONITOR PATIENT.
[2020-03-01] MEDS: ATORVASTATIN 20 MG TAB PO SCH (21:00)
[2020-03-01] MEDS: FUROSEMIDE 20 MG TAB PO SCH (22:03)
--- NOTE | 2020-03-01 23:17 | NUR ---
STARTED PT ON BLOOD TRANSFUSION PRBC WILL CONTINUE TO MONITOR PT Addendum: 03/02/20 at 0006 by Alexy Jordan RN START TIME 2330 PREVITALS TIME 3501
--- NOTE | 2020-03-01 23:45 | NUR ---
PT STABLE VITALS WITHIN NORMAL LIMITS WILL CONTINUE TO MONITOR PT
[2020-03-02] VITALS (105 sets, daily range): BP systolic 65–180; BP diastolic 57–129
[2020-03-02] MEDS: FUROSEMIDE 20 MG TAB PO SCH
[2020-03-02] MEDS: Z-GUARD PASTE TP SCH ×2 (01:00→13:00)
--- NOTE | 2020-03-02 01:50 | NUR ---
PT PLACED INTO PRONE POSITION PT VITALS STABLE WILL CONTINUE TO MONITOR
--- NOTE | 2020-03-02 01:50 | NUR ---
AT APPROXIMATELY 0150, PATIENT WAS SUCCESSFULLY PLACED IN PRONE POSITION. AIRWAY IS PATENT. ETT IS SECURED AND INTACT. PATIENT IN NO RESPIRATORY DISTRESS AT THIS TIME. SPO2 OF 90%. RNs AT BEDSIDE. WILL CONTINUE TO MONITOR PATIENT.
[2020-03-02] MEDS ORDERED: FUROSEMIDE 20 MG TAB ONE (02:06)
[2020-03-02] MEDS: ACETAMINOPHEN 325 MG TAB PO SCH ×3 (04:00→05:53)
[2020-03-02] MEDS: BLOOD GLUCOSE MONITORING 1 DEV DEV FS SCH ×6 (04:00→20:42)
--- NOTE | 2020-03-02 06:34 | NUR ---
PATIENT STILL REMAINS ON SAME VENT SETTINGS. AIRWAY IS PATENT. ETT IS SECURED AND INTACT. PATIENT STILL REMAINS IN PRONE POSITION. PATIENT IN NO DISTRESS AT THIS TIME. WILL CONTINUE TO MONITOR.
--- NOTE | 2020-03-02 07:28 | NUR ---
BEDSIDE REPORT RECIEVED FROM WALLCOVERING TEXTURER NURSE, PT IN PRONE POSITION, PT SEDATED TO RASS -2 WITH PROPOFOL, DRY WT 59.8GK, ETT TO VENT 7.5F, 21CM AT TEETH, ACVC FIO2 80%, TV 350, RR 20, PEEP 10, EQUAL CHEST RISE AND FALL NOTED, SKIN COLOW WNL, VITALS STABLE ON MONITOR HR 86, RR21, BP 124/66, O2SAT 96%, OGT IN PLACE, FEEDING ON HOLD WHILE PRONE, R IJ AND R FEMORAL HD CATHs, LFA 20G, LAV 20G, ALL SITES WNL, PERRY CATH IN PLACE, DRAINING SMALL AMT TO GRAVITY, PT CURRENTLY ON PROPOFOL AT 15MCG/KG/MIN (5.38ML/HR), NS TKO AT 5ML/HR. ALL SAFETY MEASURES IN PLACE, POC REVIEWED, WILL CONTINUE TO MONITOR.
[2020-03-02] MEDS: INSULIN NPH HUMAN ISOPHANE 100 UNIT/ML VIAL SUBQ SCH ×2 (07:30→15:40)
--- NOTE | 2020-03-02 07:40 | NUR ---
RECEIVED ON A [employer]APE R860 VENTILATOR PLUGGED INTO RED OUTLET TOLERATING WELL WITHOUT ADVERSE REACTIONS NOTED TO AN ENDOTRACHEAL TUBE #7.5 SECURED AT 21cm WITH AN ANCHOR FAST CUFF PRESSURE CHECKED NOTED AMBU BAG AT BEDSIDE PRONE POSITION WITH HEAD TURNED TO RIGHT SIDE RESTING COMFORTABLY WITHOUT DISTRESS NOTED GOOD CHEST RISE BREATH SOUNDS CLEAR APEX TO MID BILATERAL DECREASED LLL SLIGHT EXPIRATORY WHEEZE RLL TANK CAR LOADER TO MONITOR AIRWAY PATENT
--- NOTE | 2020-03-02 07:55 | NUR ---
DR DIXON AND MEDICAL TEAM AT BEDSIDE. MADE AWARE THAT TUNNEL CATH PROCEDURE WAS CANCELED BY DR FARLEY DUE TO INCREASED WBC PER DR FARLEY.
--- NOTE | 2020-03-02 07:58 | NUR ---
SECOND UNIT OF PRBC JUST COMPLETED, TOTAL OF 2 UNITS GIVEN. NO S/S OF REACTIONS NOTED.
[2020-03-02] MEDS: ASPIRIN 81 MG TAB.CHEW GT SCH (08:30)
[2020-03-02] MEDS: PANTOPRAZOLE 40 MG INJ VIAL IVP SCH ×2 (08:31→20:43)
[2020-03-02] MEDS: ASCORBIC ACID 500 MG/5 ML ORASYR NG SCH (08:32)
[2020-03-02] MEDS: VIT-B COMP/VIT-C/FOLIC ACID 1 TAB PO SCH (08:34)
[2020-03-02] MEDS: ZINC SULF 220 MG CAP PO SCH (08:35)
[2020-03-02] MEDS: hePARIN / DEXT 5% PREMIX 250 ML IV SCH (09:35)
--- NOTE | 2020-03-02 09:35 | NUR ---
BEDSIDE GLUCOSE 45, D50 GIVEN PER ORDER, PT'S HEAD AND ARMS REPOSITIONED, PILLOWS POSITIONED UNDER CHEST AND PELVIS, HEPARIN DRIP RE-STARTED AT PREVIOUS RATE OF 1000 UNITS/HR PER [facility] PHARMACIST DUE TO NO PROCEDURE TODAY. Addendum: 03/02/20 at 1932 by Leslie Ochoa RN DR FRAIRE MADE AWARE OF LOW BLOOD SUGAR, NPH TO BE CANCELED BY DR FRAIRE.
--- NOTE | 2020-03-02 09:44 | NUR ---
STABLE PRONE POSITION HEAD TURNED TO LEFT SIDE NO SOB NOTED GOOD CHEST RISE UNABLE TO GIVE MDI THERAPY AT THIS TIME INCORRECT TYPE DISBURSED FROM PHARMACY DOESN'T "FIT" ADAPTER AT INLINE SUCTION CATHETER ADULT LITERACY TEACHER TO CONTACT PHARMACY Addendum: 03/02/20 at 0955 by Low Bush RT AIRWAY PATENT
--- NOTE | 2020-03-02 09:55 | NUR ---
SATURATION 97% ONFIO2 OF 80% TITRATED FIO2 TO 70% HARSHA/RN AT BEDSIDE NOTIFIED OF CHANGE
[2020-03-02 10:29] LABS: BASOPHILS # (AUTO) 0.1 K/uL (0.00-0.22); BASOPHILS % (AUTO) 0.6 % (0.0-2.0); EOSINOPHILS # (AUTO) 0.3 K/uL (0-0.4); EOSINOPHILS % (AUTO) 2.5 % (0.0-4.0); HEMATOCRIT 30.9 % (36-48); HEMOGLOBIN 10.3 g/dL (12.0-16.0); LYMPHOCYTES # (AUTO) 0.6 K/uL (2.5-16.5); LYMPHOCYTES % (AUTO) 4.6 % (20.5-51.1); MEAN CORPUSCULAR HEMOGLOBIN 28 pg (27-31); MEAN CORPUSCULAR HGB CONC 33 g/dL (33-37); MEAN CORPUSCULAR VOLUME 85.1 fL (80-94); MONOCYTES # (AUTO) 0.4 K/uL (0.8-1.0); MONOCYTES % (AUTO) 2.7 % (1.7-9.3); NEUTROPHILS # (AUTO) 12.3 K/uL (1.8-7.7); NEUTROPHILS % (AUTO) 89.6 % (42.2-75.2); PLATELET COUNT (AUTO) 169 K/uL (140-450); RED BLOOD CELL COUNT(AUTO) 3.63 MIL/uL (4.20-5.40); RED CELL DISTRIBUTION WIDTH 16.5 % (11.6-13.7); WHITE BLOOD COUNT (AUTO) 13.7 K/uL (4.8-10.8)
--- NOTE | 2020-03-02 10:43 | NUR ---
DR. SHIRLEY HODGES IN ICU MAKING ROUNDS NEW ORDERS: DC MDI; CHANGE TO HHN Q6 AND Q4 PRN FOR SOB AND/OR WHEEZE WITH DUONEB KEEP SATURATION GREATER THAN 90%
--- NOTE | 2020-03-02 10:49 | NUR ---
DR HODGES AT BEDSIDE FOR EVAL, RT AT BEDSIDE, VENT SETTING CHANGED TO PEEP 8.
[2020-03-02 10:56] LABS: ALBUMIN 1.5 g/dL (3.4-5.0); ANION GAP 14.1 (8-16); CARBON DIOXIDE 25.5 mmol/L (21-32); MAGNESIUM 2.5 mg/dL (1.8-2.4); PHOSPHORUS 3.3 mg/dL (2.5-4.9); POTASSIUM 3.6 mmol/L (3.5-5.1)
[2020-03-02 11:12] LABS: CREATININE 5.3 mg/dL (0.6-1.3)
--- NOTE | 2020-03-02 11:18 | NUR ---
TRANSFUSION ORDER CLARIFIED WITH DR FRAIRE, [address] GARCIA AT 0600, ANOTHER [address] FRAIRE AT 0701, GIVE ONLY 2 UNITS OF PRBC PER DR FRAIRE, HGB 10.3 AFTER 2 UNITS OF BLOOD TRANSFUSION, DR FRAIRE AWARE.
[2020-03-02] MEDS ORDERED: ALBUTEROL SULFATE/IPRATROPIU 3 ML SOL IH PRN (11:25)
--- NOTE | 2020-03-02 11:45 | NUR ---
RESTING WELL NO DISTRESS NOTED GOOD CHEST RISE
[2020-03-02] MEDS: ALBUTEROL SULFATE/IPRATROPIU 3 ML SOL IH SCH ×2 (13:19→19:18)
--- NOTE | 2020-03-02 14:05 | NUR ---
WOUND CARE RE-EVALUATION NOTE: REASON FOR EVALUATION: CHANGE OF SKIN CONDITION AND BUTTOCKS WOUND SKIN ASSESSMENT DONE WITH THIS 45 Y/O MALE PT. PT IS SEDATED. SKIN IS WARM AND MOIST, BLE NO HAIR GROWTH, NO EDEMA. DORSAL PEDAL PULSES PRESENT AND NORMAL. CAPILLARY REFILLED < 2 SEC. F/C PATENT WITH SMALL AMOUNT DARK YELLOW COLOR URINE OUT PUT OBSERVED. PLAN OF CARE DISCUSSED WITH PRIMARY RN. INTEGUMENTARY: -SACRALCOCCYX UN-STAGEABLE 3X2CM WOUND BED DRY AND BROWN COLOR -L/R INNER BUTTOCKS PRESSURE ULCER STAGE 2 IRREGULAR SHAPE WITH MULTIPLE PARTIAL THICKNESS SKIN LOSS WITH LARGEST 2X1X0.1CM WOUND BED RED, MOIST AND WOUND EDGEDS DIFFUSED, ENTIRE SACRALCOCCYX AND BUTTOCKS SKIN DAMAGE AREA 5X3CM -LEFT EAR PREVIOUS BLISTER TODAY IS AN UN-STAGEABLE 1X0.5CM BLACK SCAB WITH GLORY-WOUND RED AND SKIN INTACT. -RIGHT EAR 2X0.5CM SKIN RED AND INTACT, VERSATEL DRESSING IN PLACE -LEFT NOSE 0.5X0.5 CM PARTIAL THICKNESS SKIN LOSS. WOUND BED RED, MOIST NO ODOR. GLORY-WOUND SKIN RED INDICATED FURTHER DAMAGE RECOMMENDATIONS: -CLEANSE WITH NS, PAT DRY, APPLY VERSATAL DRESSING TO RIGHT AND LEFT EAR, LEFT NOSE QD AND PRN IF SOILING, OFFLOADING AND SHIFT WEIGHTS Q2 HOURS -CLEANSE SACRALCOCCYX AND R/L BUTTOCKS WITH NS. PAT DRY APPLY Z GUARD ADAPTIC DRESSING AND COVER WITH FOAM DRESSING Q D AND PRN IF SOILING -ASSESS AND MONITOR SKIN CONDITION DURING POSITION CHANGE -OFFLOAD BILATERAL HEELS BY PLACING PILLOWS UNDER CALVES AT ALL TIMES, UNLESS OTHERWISE CONTRAINDICATED -PRESSURE REDISTRIBUTION BY PLACING PILLOWS AND OFFLOADING SACRALCOCCYX -KEEP SKIN CLEAN AND DRY AT ALL TIMES. ALL ABOVE RECOMMENDATIONS DISCUSSED WITH PRIMARY RN AND DOCTOR AKYY NOTIFIED PLEASE CONTACT WOUND CARE NURSE FOR ANY QUESTION AND CHANGE OF WOUND CONDITION.
--- NOTE | 2020-03-02 15:00 | NUR ---
PT REPOSITIONED TO SUPINE WITH 4PEOPLE WITH RT AT HEAD OF BED TO SECURE AIRWAY, NO ADVERSE INCIDENT, PT BUDDY WELL, FEEDING RESTARTED AT THIS TIME.
--- NOTE | 2020-03-02 15:48 | NUR ---
SEDATED NO INDICATIONS OF SOB NOTED GOOD CHEST RISE AIRWAY PATENT
--- NOTE | 2020-03-02 16:35 | NUR ---
HEPARIN DRIP INCREASED TO 1100 UNITS /HR, BOLUS 2300 UNITS GIVEN FOR PTT 36.3, NEXT PTT @2235
--- NOTE | 2020-03-02 17:00 | NUR ---
DIALYSIS NURSE JOEY CALLED TO NOTIFY OF DIALYSIS ORDER FOR TOMORROW (03/03/2020)AM
--- NOTE | 2020-03-02 17:55 | NUR ---
PT MOVED TO WOUND BED WITH RT AT BEDSIDE.
--- NOTE | 2020-03-02 17:58 | NUR ---
[facility] GOOD CHEST RISE ENDOTRACHEAL SUCTION FOR MODERATE THIN YELLOW SECRETIONS AIRWAY PATENT
--- NOTE | 2020-03-02 19:30 | NUR ---
DR BETANCOURT IN ICU, DAUGHTER KUMAR CALLED ON PHONE TO GET CONSENT FOR DIALYSIS CATH [facility]IA [facility] #[id number], 2 RN WITNESSED.
--- NOTE | 2020-03-02 19:45 | NUR ---
RECEIVED REPORT FROM DAY SHIFT RN P RASS -2 DRY WEIGHT 59.8 KG, PROPOFOL 20MCG/KG/HR, HEPARIN 1100 UNITS, PT OGT TO FEEDING NEPRO 40ML/HR WATER FLUSH 100 ML Q4H, PLACEMENT CHECKED AND AUSCULTATED, RESIDUALS CHECKED AND OBSERVED 300 ML AND TUBE FEEDING HELD, PERRY CATHETER IN PLACE DRAINING CLEAR YELLOW URINE, LUNGS SOUNDS DIMINISHED, S1 AND S2 HEART SOUNDS HEARD, PULSES PALPABLE UPPER AND LOWER EXTREMITIES, EYES SLUGGISH PERRL 3MM. PT ON BILATERAL WRIST RESTRAINTS TO PREVENT PULLING OF ETT VITALS STABLE, SAFETY PROTOCOLS IN PLACE WILL CONTINUE TO MONITOR PT Addendum: 03/03/20 at 0049 by Alexy Jordan RN VENT SETTINGS AC/VC FIO2 80 VT 350 RR 20 PEEP 8
[2020-03-02] MEDS: ATORVASTATIN 20 MG TAB PO SCH (20:43)
--- NOTE | 2020-03-02 22:45 | NUR ---
PT 02 SATURATION DECREASED, TRIED TO SUCTION PT BOTH WITH ETT AND ORAL NO CHANGE CALLED RT TO BEDSIDE, PT HAS TEMP OF 102.2F TEMPORAL TYLENOL GIVEN TO HELP WILL CONTINUE TO MONITOR PT
[2020-03-02] MEDS: ACETAMINOPHEN 325 MG TAB PO PRN (22:48)
--- NOTE | 2020-03-02 22:57 | NUR ---
CALLED TO PT ROOM. PT SAT DROPPED TO 75% ON FIO2 70% AND PEEP 10. RAISED FIO2 TO 100% AND PEEP 15 SAT CAROLINE TO 94% AND MAINTAINED. ET SUCTION X2 WITH LIGHT AMOUNT OF THIN CLEAR SECRETIONS. NOTICED BLOOD TINGED SECRETIONS AFTER ORAL SUCTIONING. Addendum: 03/02/20 at 2307 by Eliazar Arreguin RT ORIGINAL PEEP WAS SET ON 8 NOT 10.
[2020-03-03] VITALS (108 sets, daily range): BP systolic 102–171; BP diastolic 56–124
[2020-03-03] MEDS: BLOOD GLUCOSE MONITORING 1 DEV DEV FS SCH ×6 (00:19→20:17)
--- NOTE | 2020-03-03 00:30 | NUR ---
PT VITALS STABLE, O2 SATURATION AT 93% WITH FIO2 100% VITALS STABLE WILL CONTINUE TO MONITOR PT
[2020-03-03] MEDS: ALBUTEROL SULFATE/IPRATROPIU 3 ML SOL IH SCH ×4 (01:18→19:38)
[2020-03-03] MEDS: Z-GUARD PASTE TP SCH ×2 (01:51→13:25)
--- NOTE | 2020-03-03 02:50 | NUR ---
PT PLACED IN PRONE PORTION WITH RT AT BEDSIDE, VITALS STABLE NOW NEW SIGNS OF INJURY WILL CONTINUE TO MONITOR PT
--- NOTE | 2020-03-03 05:20 | NUR ---
PT VITALS STABLE, RESIDUALS >50 UNABLE TO RESUME FEEDING, BLOOD SUGAR 130 NO COVERAGE NEEDED WILL CONTINUE TO MONITOR PT
[2020-03-03 06:20] LABS: BASOPHILS # (AUTO) 0.1 K/uL (0.00-0.22); BASOPHILS % (AUTO) 0.5 % (0.0-2.0); EOSINOPHILS # (AUTO) 0.2 K/uL (0-0.4); EOSINOPHILS % (AUTO) 1.4 % (0.0-4.0); LYMPHOCYTES # (AUTO) 0.8 K/uL (2.5-16.5); LYMPHOCYTES % (AUTO) 5.2 % (20.5-51.1); MEAN CORPUSCULAR HEMOGLOBIN 28 pg (27-31); MEAN CORPUSCULAR HGB CONC 33 g/dL (33-37); MEAN CORPUSCULAR VOLUME 85.2 fL (80-94); MONOCYTES # (AUTO) 0.5 K/uL (0.8-1.0); MONOCYTES % (AUTO) 3.2 % (1.7-9.3); NEUTROPHILS # (AUTO) 14.5 K/uL (1.8-7.7); NEUTROPHILS % (AUTO) 89.7 % (42.2-75.2); PLATELET COUNT (AUTO) 181 K/uL (140-450); RED BLOOD CELL COUNT(AUTO) 3.52 MIL/uL (4.20-5.40); RED CELL DISTRIBUTION WIDTH 16.7 % (11.6-13.7); WHITE BLOOD COUNT (AUTO) 16.2 K/uL (4.8-10.8)
[2020-03-03 06:33] LABS: ALBUMIN 1.3 g/dL (3.4-5.0); ANION GAP 14.6 (8-16); CARBON DIOXIDE 25.3 mmol/L (21-32); MAGNESIUM 2.5 mg/dL (1.8-2.4); PHOSPHORUS 5.3 mg/dL (2.5-4.9); POTASSIUM 3.9 mmol/L (3.5-5.1); TOTAL BILIRUBIN 0.7 mg/dL (0.0-1.0)
--- NOTE | 2020-03-03 06:52 | NUR ---
PT BLOOD SUGAR 114 DR. MUNOZ CALLED MADE AWARE OF PT HAS BEEN OFF TUBE FEEDING SINCE 2099 DR. MUNOZ SAID HE WOULD SPEAK WITH DR. FRAIRE, ORDERS RECEIVED TO HOLD NPH FOR THE TIME BEING WOULD MAKE DECISION AND CALL BACK WITH NEW ORDERS DURING ROUNDS.
[2020-03-03 07:04] LABS: CREATININE 6.4 mg/dL (0.6-1.3)
--- NOTE | 2020-03-03 07:20 | NUR ---
RECEIVED ON A [employer]SysSCAPE R860 VENTILATOR PLUGGED INTO RED OUTLET TOLERATING WELL WITHOUT ADVERSE REACTIONS NOTED TO AN ENDOTRACHEAL TUBE #7.5 SECURED AT 21cm TEETH/GUM LINE WITH AN ANCHOR FAST CUFF PRESSURE CHECKED NOTED AMBU BAG NOTED AT BEDSIDE SEDATED NO DISTRESS NOTED GOOD CHEST RISE BREATH SOUNDS COARSE RALES BILATERAL ENDOTRACHEAL TUBE SUCTION FOR MODERATE THIN CLEAR TO YELLOW SECRETIONS AIRWAY PATENT
--- NOTE | 2020-03-03 07:22 | NUR ---
GAVE REPORT TO DAY SHIFT RN, PT VITALS STABLE NO SIGNS OF DISTRESS NOTED
--- NOTE | 2020-03-03 07:23 | NUR ---
RECEIVED BEDSIDE REPORT FROM SOLUTION DESIGNER NURSE, PT IS ON PRONE POSITION, SEDATED, RASS -2, VSS, FLACC 0, ETT to VENT WITH AC VC FIO2 80%, NO S/S OF DISTRESS, DIMINISHED LUNG SOUNDS JUANPABLO. SR ON FIELD SERVICES MANAGER, SOFT ROUND ABDOMEN WITH ACTIVE BOWEL SOUNDS, OGT IN PLACE, FEEDING ON HELD AT THIS TIME, 10 ML OF RESIDUALS NOTED, PERRY CATHETER IN PLACE WITH CLEAR YELLOW URINE VIA GRAVITY, GENERALIZED WEAKNESS TO ALL EXTREMITIES, SKIN IS WARM AND DRY TO TOUCH, OPEN WOUND PRESENT (SEE WOUND ASSESSMENT), HD DIALYSIS CATHETER TO RIGHT FEMORAL, CENTRAL LINE TO RIJ, RUNNING PROPOFOL AT 20 MCG/KG/MIN, DRY WEIGHT 59.8KG, AND HEPARIN AT 1100 UNITS/HR, IV LINE TO LAC 20GA AND LFA 20GA, PATENT AND SL. SOFT WRIST RESTRAIN FOR SAFETY, WILL CONTINUE TO MONITOR.
[2020-03-03] MEDS: INSULIN NPH HUMAN ISOPHANE 100 UNIT/ML VIAL SUBQ SCH ×2 (07:30→16:46)
[2020-03-03] MEDS: PANTOPRAZOLE 40 MG INJ VIAL IVP SCH ×2 (08:42→20:19)
[2020-03-03] MEDS: ZINC SULF 220 MG CAP PO SCH (08:43)
[2020-03-03] MEDS: ASCORBIC ACID 500 MG/5 ML ORASYR NG SCH (08:43)
[2020-03-03] MEDS: VIT-B COMP/VIT-C/FOLIC ACID 1 TAB PO SCH (08:44)
--- NOTE | 2020-03-03 08:45 | NUR ---
SCHEDULED MEDICATION GIVEN, PT TOLERATED WELL.
[2020-03-03] MEDS: LEVOFLOXACIN 250 MG/D5 PREMIX 50 ML IV SCH (08:56)
[2020-03-03] MEDS: hePARIN / DEXT 5% PREMIX 250 ML IV SCH (09:01)
[2020-03-03] MEDS: PROPOFOL 1000 MG/100 ML PREMIX 100 ML IV PRN ×2 (09:02→22:46)
--- NOTE | 2020-03-03 09:58 | NUR ---
PRONE POSITION NO DISTRESS NOTED GOOD CHEST RISE
--- NOTE | 2020-03-03 10:15 | NUR ---
DR. CLARK CAME IN TO SEE PATIENT AT BEDSIDE, NO NEW ORDER AT THIS TIME.
--- NOTE | 2020-03-03 11:13 | NUR ---
SEDATED NO EVIDENCE OF SOB NOTED GOOD CHEST RISE ENDOTRACHEAL SUCTION FOR SCANT CLEAR/YELLOW SECRETIONS AIRWAY PATENT
--- NOTE | 2020-03-03 12:00 | NUR ---
NO CHANGE OF CONDITION, NO S/S OF DISTRESS, VSS, FLACC 0, STILL ON PRONE POSITION, ORAL CARE PROVIDED, POSITION CHANGED FOR OFF LOAD PRESSURE.
--- NOTE | 2020-03-03 13:00 | NUR ---
WOUND CARE PERFORMED, PATIENT TOLERATED WELL.
--- NOTE | 2020-03-03 13:40 | NUR ---
SEDATED NO PULMONARY DISTRESS NOTED GOOD CHEST RISE NO SUCTIONING AT THIS TIME
--- NOTE | 2020-03-03 13:49 | NUR ---
03/03/20 RD FOLLOW UP COMPLETED PLEASE REFER TO NUTRITION ASSESSMENT UNDER CARE ACTIVITY FOR ESTIMATED NUTRITIONAL NEEDS. 1. RECOMMEND CONTINUE NEPRO 1.8 @ 40 ML/HR X 24 HR OR 960 ML/DAY NEPRO 1.8 WITH PROSOURCE BID AND DIANE BID -THIS WILL PROVIDE 960 ML, 1848 CALORIES, 107 GM OF PROTEIN. THIS WILL MEET 100% OF ESTIMATED NUTRIENT AND PROTEIN NEEDS 2. TITRATE TUBE FEEDING TO MEET 960 ML OF VOLUME/DAY. START AT 40 ML/HR AND INCREASE TOLERATED UNTIL GOAL IS MET 3. CONTINUE FREE WATER FLUSH OF 100 ML Q6H 4. RECOMMEND NEPHRO-BRE DAILY 5. RD TO FOLLOW-UP 2-3 DAYS, HIGH RISK RITU OG RD
--- NOTE | 2020-03-03 14:10 | NUR ---
TOLERATED SUPINE WELL WITHOUT COMPLICATIONS
--- NOTE | 2020-03-03 14:25 | NUR ---
PT PLACED IN SUPINE PORTION WITH RT AT BEDSIDE, VSS, NO S/S OF DISTRESS, NO S/S OF INJURY, ORAL CARE PROVIDED, WILL CONTINUE TO MONITOR.
--- NOTE | 2020-03-03 14:30 | NUR ---
RESTARTED TUBE FEEDING AT THIS TIME ORDERED
--- NOTE | 2020-03-03 15:55 | NUR ---
HD NURSE HERE STARTED HD ORDERED.
--- NOTE | 2020-03-03 16:00 | NUR ---
HEMODIALYSIS IN PROGRESS DESCENDING SATURATION TO LOW 80'S PER GEORGE/RN INCREASED TO A FIXED 100% DURING PROCEDURE
[2020-03-03] MEDS: INSULIN LISPRO SLIDING SCALE 100 UNITS/ML VIAL SUBQ PRN (16:47)
--- NOTE | 2020-03-03 17:55 | NUR ---
HEMODIALYSIS IN PROGRESS RESTING WELL NO DISTRESS NOTED GOOD CHEST RISE
--- NOTE | 2020-03-03 19:11 | NUR ---
REPORT GIVEN TO TOP CARRIER NURSE AT BEDSIDE FOR CONTINUE OF CARE, PT COMPLETED HD AT THIS TIME WITH 2L OUTPUT PER HD NURSE.
--- NOTE | 2020-03-03 19:11 | NUR ---
BESIDE REPORT RECEIVED FROM AM SHIFT RN. ETT TO VENT. SEDATED, RASS -2. SINUS TACHYCARDIA. PT PRESENTS WITH TACHYPNEIC LABORED BREATHING, RT AT BEDSIDE. ON ACVC MODE FIO2 100%, TV 375, RR 20, PEEP 10. IV SITE RIJ AGUILAR CATH WITH PIGTAIL, INTACT PATENT. R FEMORAL AGUILAR CATH, SALINE LOCKED. LEFT AC AND LEFT FOREARM 20 G, INTACT, PATENT, INFUSING HEPARIN 1100 UNITS, PROPOFOL 20 MCG/KG/MIN. DRY WEIGHT 57.8 KG. SKIN NON INTACT. SEE WOUND ASSESSMENT. PERRY CATHETER IN PLACE. HOB 30 DEGREES. BED LOCKED IN LOWEST POSITION. WILL CONTINUE TO MONITOR.
[2020-03-03] MEDS: FLUCONAZOLE 200 MG/NS PREMIX 100 ML IV SCH (19:27)
--- NOTE | 2020-03-03 19:37 | NUR ---
RECEIVED INTUBATED PT WITH A 7.5 ETT SECURED @21 TEETH/GUM ON VENT. SETTINGS A/C VC 20, VT 350, PEEP 10 AND FIO2 100%. PT TACHYPNEIC/TACHYCARDIC AT THIS TIME, WILL ADMINISTER BREATHING TX. SPO2 92%. ETT IS SECURE WITH A PATENT AIRWAY. VENT IS PLUGGED INTO A RED OUTLET WITH ALARMS ON AND FUNCTIONING. WILL CONTINUE TO MONITOR.
--- NOTE | 2020-03-03 20:00 | NUR ---
OGT TO FEEDING. >350ML RESIDUALS. HELD TUBE FEEDING. AWARE.
[2020-03-03] MEDS: ATORVASTATIN 20 MG TAB PO SCH (20:18)
[2020-03-03] MEDS: ACETAMINOPHEN 325 MG TAB PO PRN (20:28)
--- NOTE | 2020-03-03 21:36 | NUR ---
NOTIFIED DR RUIZ OF TEMPERATURE 100.[address] RUIZ STATED OKAY TO GIVE PLASMA.
--- NOTE | 2020-03-03 22:53 | NUR ---
FIO2 TITRATED TO 90%. SPO2 93% AT THIS TIME. WILL CONTINUE TO MONITOR.
--- NOTE | 2020-03-03 23:37 | NUR ---
PT REMAINS TACHYPNEIC/TACHYCARDIC NURSE AWARE OF PT STATUS. WILL CONTINUE TO MONITOR.
[2020-03-04] VITALS (101 sets, daily range): BP systolic 93–177; BP diastolic 28–79
--- NOTE | 2020-03-04 | NUR ---
BLOOD SUGAR 91, NO INSULIN GIVEN. WILL CONTINUE TO MONITOR.
[2020-03-04] MEDS: BLOOD GLUCOSE MONITORING 1 DEV DEV FS SCH ×6 (00:59→20:00)
[2020-03-04] MEDS: Z-GUARD PASTE TP SCH ×2 (01:05→13:11)
[2020-03-04] MEDS: ALBUTEROL SULFATE/IPRATROPIU 3 ML SOL IH SCH ×4 (01:29→19:50)
--- NOTE | 2020-03-04 02:27 | NUR ---
PT PRESENTS WITH LABORED AND TACHYPNEIC BREATHING. RT AWARE. SAFETY PRECAUTIONS IN PLACE. WILL CONTINUE TO MONITOR.
--- NOTE | 2020-03-04 03:00 | NUR ---
PT PLACED IN PRONE POSITION WITHOUT INCIDENT. ETT IS SECURE WITH A PATENT AIRWAY. FIO2 TITRATED TO 70%. WILL CONTINUE TO MONITOR.
--- NOTE | 2020-03-04 05:30 | NUR ---
PT REMAINS IN PRONE POSITION NOT IN ANY DISTRESS. ETT IS SECURE WITH A PATENT AIRWAY. VENT ALARMS ON AND FUNCTIONING.
[2020-03-04 06:43] LABS: ANION GAP 14.1 (8-16); CARBON DIOXIDE 26.4 mmol/L (21-32); POTASSIUM 3.5 mmol/L (3.5-5.1)
[2020-03-04 06:45] LABS: ALBUMIN 1.5 g/dL (3.4-5.0); CREATININE 4.4 mg/dL (0.6-1.3); MAGNESIUM 1.9 mg/dL (1.8-2.4); TOTAL BILIRUBIN 0.9 mg/dL (0.0-1.0)
[2020-03-04 06:46] LABS: PHOSPHORUS 4.2 mg/dL (2.5-4.9)
[2020-03-04 07:27] LABS: HEMATOCRIT 30.5 % (36-48); HEMOGLOBIN 10.1 g/dL (12.0-16.0); MEAN CORPUSCULAR HEMOGLOBIN 28 pg (27-31); MEAN CORPUSCULAR HGB CONC 33 g/dL (33-37); MEAN CORPUSCULAR VOLUME 85.5 fL (80-94); PLATELET COUNT (AUTO) 202 K/uL (140-450); RED BLOOD CELL COUNT(AUTO) 3.57 MIL/uL (4.20-5.40); RED CELL DISTRIBUTION WIDTH 16.9 % (11.6-13.7); WHITE BLOOD COUNT (AUTO) 18.4 K/uL (4.8-10.8)
[2020-03-04] MEDS: INSULIN NPH HUMAN ISOPHANE 100 UNIT/ML VIAL SUBQ SCH ×2 (07:30→16:30)
--- NOTE | 2020-03-04 07:30 | NUR ---
BEDSIDE REPORT RECIEVED FROM RAILROAD DETECTIVE NURSE, PT IN PRONE POSITION, PT SEDATED TO RASS -2 WITH PROPOFOL, DRY WT 59.8GK, ETT TO VENT 7.5F, 21CM AT TEETH, ACVC FIO2 70%, TV 375, RR 20, PEEP 10, EQUAL CHEST RISE AND FALL NOTED, SKIN COLOW WNL, VITALS STABLE ON MONITOR HR 101, RR21, BP 151/69, O2SAT 98%, OGT IN PLACE, FEEDING ON HOLD BEFORE HD CATH PLACEMENT TODAY, R IJ AND R FEMORAL HD CATHs, LFA 20G, LAV 20G, ALL SITES WNL, PERRY CATH IN PLACE, DRAINING SMALL AMT TO GRAVITY, PT CURRENTLY ON PROPOFOL AT 25MCG/KG/MIN (8.95ML/HR), NS TKO AT 5ML/HR. ALL SAFETY MEASURES IN PLACE, POC REVIEWED, WILL CONTINUE TO MONITOR.
--- NOTE | 2020-03-04 07:40 | NUR ---
RECEIVED ON A Prism Sk[employer]absSCAPE R860 PLUGGED INTO RED OUTLET TOLERATING WELL WITHOUT ADVERSE REACTIONS TO AN ENDOTRACHEAL TUBE #7.5 SECURED AT 21cm TEETH/GUM LINE WITH AN ANCHOR FAST CUFF PRESSURE CHECKED NOTED AMBU BAG AT BEDSIDE SEDATED PRONE POSITION GOOD CHEST RISE ENDOTRACHEAL SUCTION FOR SMALL THIN CLEAR TO BLOOD STREAKED SECRETIONS AIRWAY PATENT
[2020-03-04] MEDS: ZINC SULF 220 MG CAP PO SCH (08:18)
[2020-03-04] MEDS: CHOLECALCIFEROL 1,000 IU TAB NG SCH (08:24)
[2020-03-04] MEDS: ASCORBIC ACID 500 MG/5 ML ORASYR NG SCH (08:24)
[2020-03-04] MEDS: VIT-B COMP/VIT-C/FOLIC ACID 1 TAB PO SCH (08:25)
[2020-03-04] MEDS: PANTOPRAZOLE 40 MG INJ VIAL IVP SCH ×2 (08:25→20:54)
--- NOTE | 2020-03-04 08:30 | NUR ---
CALLED [facility] NURSE, NOTIFIED HER THAT PT NEEDS DIALYSIS TODAY.
[2020-03-04] MEDS: LIDOCAINE 1% 500 MG/50 ML VIAL ONE ×2 (08:40→14:14)
[2020-03-04] MEDS: PROPOFOL 1000 MG/100 ML PREMIX 100 ML IV PRN ×2 (09:02→20:57)
--- NOTE | 2020-03-04 09:58 | NUR ---
DR HODGES AT BEDSIDE, TO CONTINUE PRONE 12HRS, SUPINE 12HR, LOWER FIO2 DOWN TO 50% TOLERATED KEEPING O2SAT >90%.
--- NOTE | 2020-03-04 10:06 | NUR ---
RESTING WELL WITHOUT SOB NOTED GOOD CHEST RISE REVIEWED NOTES AT 0958 PER HARSHA/RN FIO2 TITRATED FIO2 TO 65%
[2020-03-04 10:19] LABS: EOSINOPHILS % (MANUAL) 3 % (0-4); LYMPHOCYTES % (MANUAL) 5 % (20-46); METAMYELOCYTES % 2 % (0-0); MONOCYTES % (MANUAL) 2 % (5-12); MYELOCYTES % 1 % (0-0)
--- NOTE | 2020-03-04 10:35 | NUR ---
PT TURNED SUPINE WITH RT PETER AT HEAD OF BED TO MAINTAIN SECURE AIRWAY, NO ADVERSE INCIDENTS, OR TEAM AT BEDSIDE, TAKEN BY KRISTAL MASON AND KRISTAL BELTRÁN TO OR FOR TUNNEL CATH PLACEMENT
--- NOTE | 2020-03-04 10:40 | NUR ---
TRANSFERRED PATIENT TO GI LAB FOR TUNNEL CATHETER INSERTION REMOVED PATIENT FROM VENTILATOR PLACED ON SUPPLEMENTAL OXYGEN VIA E-TANK AT 15 LPM TO AMBU BAG/HME/INLINE SUCTION CATHETER/ENDOTRACHEAL TUBE BAG DEPRESSION 24 MIN (VENTILATOR RATE) TOLERATED SATURATION 91% HR 104 TRANSFER WELL WITHOUT ADVERSE REAVTIONS NOTED
[2020-03-04] MEDS ORDERED: PROPOFOL 200 MG/20 ML VIAL IV ONE (10:46)
[2020-03-04] MEDS ORDERED: ROCURONIUM 50 MG/5 ML VIAL IV ONE (10:48)
--- NOTE | 2020-03-04 10:50 | NUR ---
IN GI LAB PLACED PATIENT ON A Jazz PharmaceuticalsSCAPE R860 VENTILATOR WITH SAME SETTINGS FIO2 INCREASED TO 100% FOR PROCEDURE ALARMS REVIEWED AND SET BY Elda SCHWARTZ RCP
--- NOTE | 2020-03-04 11:50 | NUR ---
PT RETURNED FROM OR WITH TUNNEL CATH, PLACED BACK ON MONITOR, VITALS TAKEN, WOOZING BLOOD WITH INSERTION SITE ON RIGHT CHEST WALL, SAND BAG PLACED FOR PRESSURE, RADIOLOGY AT BEDSIDE FOR CXR.
--- NOTE | 2020-03-04 11:55 | NUR ---
RETURNED TO ICU-1 REMOVED FOR VENTILATOR PLACED ON SUPPLEMENTAL OXYGENT VIA E-TANK AT 15 LPM TO AMBU BAG/HME/INLINE SUCTION CATHETER/ENDOTRACHEAL SUCTION BAG DEPRESSION 24 MIN (VENTILATOR RATE) SATURATION 90% HR 104 TOLERATED TRANSFER WELL WITHOUT INCIDENT
--- NOTE | 2020-03-04 12:18 | NUR ---
PT DESAT TO 82%, FIO2 INCREASED TO 100% PER PETER RT.
--- NOTE | 2020-03-04 12:19 | NUR ---
SEDATED SUPINE POSITION GOOD CHEST RISE DESCENDING SATURATION FIO2 INCREASED TO 70% BY HARSHA/RN
[2020-03-04] MEDS ORDERED: HEPARIN PER PHARMACY MC PRN (12:35)
[2020-03-04] MEDS ORDERED: hePARIN / DEXT 5% PREMIX 250 ML IV SCH (12:35)
[2020-03-04] MEDS: BUPIVACAINE-MPF/EPI 0.25% 30 ML VIAL INJ ONE ×2 (13:07→14:15)
[2020-03-04] MEDS: PIPERACILLIN/TAZOBACTAM 2.25 GM in DEXTROSE 5% 50 ML IV SCH ×2 (13:12→20:53)
--- NOTE | 2020-03-04 15:03 | NUR ---
ABG COMPLETED DRAWN WITH PATIENT IN SUPINE POSITION
--- NOTE | 2020-03-04 15:04 | NUR ---
INCREASED PEEP T0 16 cmH2O TO ACHIEVE SATURATIONS GREATER THAN 90%
--- NOTE | 2020-03-04 16:20 | NUR ---
PATIENT SUPINE WITHOUT COMPLICATIONS HEAD OF BED RAISED TO 25 DEGREES Addendum: 03/04/20 at 1658 by [place] RT DOCUMENTED INCORRECTLY WRONG PATIENT
--- NOTE | 2020-03-04 17:41 | NUR ---
DAUGHTER IN LAW CAM CALLED FOR UPDATE ON CONDITION SPOKE TO CHARGE NURSE SCAR.
--- NOTE | 2020-03-04 17:54 | NUR ---
SEDATED SUPINE NO DISTRESS NOTED GOOD CHEST RISE
--- NOTE | 2020-03-04 18:05 | NUR ---
R UPPER CHEST WALL TUNNEL CATH SITE STILL WITH SMALL AMT OF WOOZING OF BLOOD, SAND BAG IN PLACE, BED BATH GIVEN PERRY CARE DONE, ORAL CARE DONE, LINEN AND GOWN CHANGED.
--- NOTE | 2020-03-04 19:30 | NUR ---
RECEIVED PT FROM DAY SHIFT RN, PT SEDATED RASS -2 DRY WEIGHT 59.8 KG, PT ON PROPOFOL 25 MCG/KG/MIN, PT ETT TO VENT AC/VC FIO2 80 VT 350 RR 20 PEEP [address] DRAINING CLOUDY YELLOW URINE , LUNG SOUNDS DIMINISHED, S1 AND S2 HEART SOUNDS HEARD, WITH PULSES PALPABLE UPPER AND LOWER EXTREMITIES BILATERAL, PT TUNNEL CATHETER IN PLACE STILL APPEARSTO BE STILL OOZING BLOOD, WILL CONTINUE TO MONITOR SITE, PT HAS OGT TO FEEDING NEPRO PLACEMENT AUSCULTATED AND RESIDUALS CHECKED TO BE LESS THE 10 ML FEEDING RESUMED 45 ML/HR WATER FLUSH [id number], VITALS STABLE, WITH SAFETY PROTOCOLS IN PLACE WILL CONTINUE TO MONITOR PT.
--- NOTE | 2020-03-04 19:45 | NUR ---
RECEIVED REPORT FROM AM SHIFT. PATIENT SEEN AND ASSESSED. PATIENT IS INTUBATED WITH ETT SIZE 7.5 AND SECURED WITH ANCHOR-FAST AT 21CM. AUSCULTATION REVEALS BILATERAL RALES BREATH SOUNDS. PATIENT ON VENT SETTINGS AC/VC 20, 375, +16, 80% WITH SPO2 OF 94%. VENT PLUGGED IN RED OUTLET, HOB > 30 DEGREES, BVM AT BEDSIDE, AND ALARMS SET AND AUDIBLE. PATIENT IS IN NO APPARENT RESPIRATORY DISTRESS AT THIS TIME. HHN TX GIVEN ORDERED VIA INLINE AND PATIENT TOLERATED WELL WITH NO ADVERSE REACTION. SUCTIONED SCANT AMOUNT OF YELLOW THICK SECRETIONS FROM ETT. AIRWAY IS PATIENT. WILL CONTINUE TO MONITOR PATIENT.
[2020-03-04] MEDS: ATORVASTATIN 20 MG TAB PO SCH (20:54)
--- NOTE | 2020-03-04 21:15 | NUR ---
PT MEDS GIVEN, PT VITALS WITHIN NORMAL LIMITS WILL CONTINUE MONITORING PT
[2020-03-05] VITALS (101 sets, daily range): BP systolic 112–171; BP diastolic 60–93
[2020-03-05] MEDS: BLOOD GLUCOSE MONITORING 1 DEV DEV FS SCH ×6 (01:00→20:50)
[2020-03-05] MEDS: Z-GUARD PASTE TP SCH ×2 (01:00→13:00)
[2020-03-05] MEDS: ALBUTEROL SULFATE/IPRATROPIU 3 ML SOL IH SCH ×4 (01:24→19:20)
--- NOTE | 2020-03-05 02:20 | NUR ---
AT APPROXIMATELY 0220, PATIENT WAS SUCCESSFULLY PLACED IN PRONE POSITION. AIRWAY IS PATENT. ETT IS SECURED AND INTACT. PATIENT IN NO RESPIRATORY DISTRESS AT THIS TIME. SPO2 OF 90%. RNs AT BEDSIDE. WILL CONTINUE TO MONITOR PATIENT.
--- NOTE | 2020-03-05 02:30 | NUR ---
PT TURNED PRONE AT 0220 RT NAA AT BEDSIDE, WILL CONTINUE TO MONITOR PT
[2020-03-05] MEDS: PROPOFOL 1000 MG/100 ML PREMIX 100 ML IV PRN (04:30)
--- NOTE | 2020-03-05 05:48 | NUR ---
PATIENT STILL REMAINS ON SAME VENT SETTINGS. AIRWAY IS PATENT. ETT IS SECURED AND INTACT. PATIENT PLACED IN PRONE POSITION. PATIENT IN NO DISTRESS AT THIS TIME. WILL CONTINUE TO MONITOR.
[2020-03-05] MEDS: PIPERACILLIN/TAZOBACTAM 2.25 GM in DEXTROSE 5% 50 ML IV SCH ×3 (05:59→22:13)
[2020-03-05 06:11] LABS: HEMATOCRIT 32.2 % (36-48); HEMOGLOBIN 10.8 g/dL (12.0-16.0); MEAN CORPUSCULAR HEMOGLOBIN 29 pg (27-31); MEAN CORPUSCULAR HGB CONC 33 g/dL (33-37); MEAN CORPUSCULAR VOLUME 85.6 fL (80-94); PLATELET COUNT (AUTO) 245 K/uL (140-450); RED BLOOD CELL COUNT(AUTO) 3.77 MIL/uL (4.20-5.40); RED CELL DISTRIBUTION WIDTH 16.8 % (11.6-13.7); WHITE BLOOD COUNT (AUTO) 14.1 K/uL (4.8-10.8)
--- NOTE | 2020-03-05 07:00 | NUR ---
RECEIVED PT FROM HAND COMPOSITOR. PT IS ON DOCUMENTED VENT SETTINGS AND SHOWS NO SIGN OF DISTRESS AT THIS TIME. BREATHING TX GIVEN INLINE. SX: SMALL BLOOD TINGED SECRETIONS. VENT IS PLUGGED INTO RED OUTLET, ALARMS ARE ON AND FUNCTIONING, AMBU BAG AT BEDSIDE. WILL CONTINUE TO MONITOR.
[2020-03-05 07:27] LABS: ALBUMIN 1.5 g/dL (3.4-5.0); CARBON DIOXIDE 28.9 mmol/L (21-32); CREATININE 2.6 mg/dL (0.6-1.3); MAGNESIUM 1.6 mg/dL (1.8-2.4); PHOSPHORUS 3.4 mg/dL (2.5-4.9); POTASSIUM 3.9 mmol/L (3.5-5.1); TOTAL BILIRUBIN 0.9 mg/dL (0.0-1.0)
[2020-03-05 07:29] LABS: LYMPHOCYTES % (MANUAL) 5 % (20-46); MONOCYTES % (MANUAL) 4 % (5-12)
[2020-03-05] MEDS: INSULIN NPH HUMAN ISOPHANE 100 UNIT/ML VIAL SUBQ SCH ×2 (07:30→16:27)
--- NOTE | 2020-03-05 08:00 | NUR ---
RECEIVED PT FROM ACID MIXER RN, PT SEDATED WITH PROPOFOL DRIP 30 MCG/KG/MIN, RASS -2 DRY WEIGHT 59.8 KG, PT ETT TO VENT AC/VC FIO2 80 VT 375 RR 20 PEEP 16. PT IS IN PRONE POSITION, ABLE TO MOVE HER ARMS. BLOOD SUGAR 166, ON TUBE FEEDING NEPRO 40ML/HR, H2O FLUSH 100ML Q6H. OGT RESIDUAL 20ML. OGT AT MARKED LOCATION. AND ETT TUBE AT 21CM LIP LINE. PERRY CATHETER IN PLACE DRAINING CLOUDY YELLOW URINE , LUNG SOUNDS DIMINISHED. ST ON MONITOR, WITH PULSES PALPABLE UPPER AND LOWER EXTREMITIES BILATERAL. TUNNEL CATHETER ON RIGHT CHEST, DRESSING INTACT, STILL HAS SOME BLEEDING FROM MOUTH. WILL TURN PT TO SUPINE AROUND 2PM.
[2020-03-05] MEDS: ZINC SULF 220 MG CAP PO SCH (08:05)
[2020-03-05] MEDS: VIT-B COMP/VIT-C/FOLIC ACID 1 TAB PO SCH (08:05)
[2020-03-05] MEDS: ASCORBIC ACID 500 MG/5 ML ORASYR NG SCH (08:05)
[2020-03-05] MEDS: CHOLECALCIFEROL 1,000 IU TAB NG SCH (08:05)
[2020-03-05] MEDS: PANTOPRAZOLE 40 MG INJ VIAL IVP SCH ×2 (08:05→20:39)
[2020-03-05] MEDS: INSULIN LISPRO SLIDING SCALE 100 UNITS/ML VIAL SUBQ PRN (08:36)
[2020-03-05] MEDS: LOSARTAN 50 MG TAB PO SCH (09:33)
[2020-03-05] MEDS: hePARIN / DEXT 5% PREMIX 250 ML IV SCH (10:15)
--- NOTE | 2020-03-05 10:30 | NUR ---
DR HODGES CAME AND ASSESSED PT. ABG 1HR AFTER SUPINE. DR HODGES SAID TO START HEPARIN NOW AT 1000UNITS/HR. MONITOR FOR SIGNS OF BLEEDING.
--- NOTE | 2020-03-05 11:47 | NUR ---
DR CELSO RAY CALLED BACK. OK TO USE [facility] SHEIKH FOR MEDICATIONS. NO PICC LINE FOR NOW BUT MAY NEED IT IN THE FUTURE.
--- NOTE | 2020-03-05 12:00 | NUR ---
DIANE AND PROSOURCE GIVEN.
--- NOTE | 2020-03-05 14:00 | NUR ---
TURNED PT TO SUPINE, RIGHT LATERAL. OGT RESIDUAL 300ML, FEEDING HELD.
--- NOTE | 2020-03-05 14:10 | NUR ---
ORAL CARE DONE, MINIMAL BLEEDING IN BOTH NOSE AND MOUTH. RIGHT CHEST TUNNEL CATH, DRESSING INTACT, NO BLEEDING. RUNNING PROPOFOL VIA RIGHT FEMORAL AGUILAR. HEPARIN DRIP AND IVPB RUNNING ON LEFT AC. VENTING SETTING FIO2 80%, PEEP AT 16, RR 20. TV 375ML
[2020-03-05] MEDS: ONDANSETRON 4 MG/2 ML VIAL IVP PRN (15:57)
--- NOTE | 2020-03-05 16:20 | NUR ---
CALLED DR YEE MUÑOZ, REPORTED PTT 49.6. PT IS BLEEDING A LITTLE BIT FROM THE NOSE. DR FRAIRE SAID TO KEEP HEPARIN DRIP RUNNING. ALSO REPORT PT IS NOT TOLERATING TUBE FEEDING. RESIDUAL IS STILL 300ML AFTER HOLD FOR [address] FRAIRE SAID TO KEEP HOLDING. BLOOD SUGAR 89 AROUND 1600.
--- NOTE | 2020-03-05 17:38 | NUR ---
LEFT PT ON DOCUMENTED SETTINGS. PT SHOWS NO SIGN OF DISTRESS AT THIS TIME. HME IS CHANGED. ETT IS SECURED AND INTACT. VENT IS PLUGGED INTO RED OUTLET, ALARMS ARE ON AND FUNCTIONING, AMBU BAG AT BEDSIDE.
[2020-03-05] MEDS: ACETAMINOPHEN 325 MG TAB PO PRN (17:50)
--- NOTE | 2020-03-05 17:55 | NUR ---
SPOKE DR SULTANA THAT PT HAS TEMP 100.7, TYLENOL WAS GIVEN AND ICE PACKS APPLIED. PT BREATHING 45/MIN. NOTIFIED RT #[id number].
--- NOTE | 2020-03-05 19:20 | NUR ---
RECEIVED PT FROM DAY SHIFT ON DOCUMENTED SETTINGS. VENT PLUGGED INTO RED OUTLET. BMV AT BEDSIDE. ETT SECURED AND INTACT. ALARMS SET AND AUDIBLE. NO INLINE TX GIVEN DUE TO PATIENT BEING TACHYPNEIC. PT HAS BLOODY MUCUS COMING OUT FROM RIGHT OF MOUTH. KRISTAL LEE NOTIFIED. SX SMALL AMOUNT OF THIN YELLOW SECRETION. WILL CONT TO MONITOR
--- NOTE | 2020-03-05 19:30 | NUR ---
RECEIVED REPORT FROM DAYSHIFT NURSE AT BEDSIDE.PATIENT APPEARS IN DISTRESS, BREATHING IS EVEN AND LABORED, USING ACCESSORY MUSCLES, RESPIRATIONS IN HIGH 30's. ETT TO VENT, ACVC 20, FI02 80%, TV 375, PEEP 16. SATURATIONS 94%. LUNG SOUNDS RHONCHI, AND DIMINISHED AT BASES. MODERATE AMOUNT OF BLOODY SECRETIONS AT MOUTH AND NOSE. SOME DRIED BLOOD. S1S2, ST ON MONITOR, HEART RATE [address], FEEDING CURRENTLY ON HOLD. ABDOMEN LARGE AND NONTENDER, ACTIVE BOWEL SOUNDS. EDEMA NOTED TO BILATERAL UPPER EXTREMITIES,MILD EDEMA AT FACE. NONPITTING. RIGHT CHEST TUNNEL CATH IN PLACE, DRESSING DRY AND INTACT. LEFT AC 20G, FLUSHED AND PATENT. LEFT FOREARM 20G, FLUSHED AND PATENT WITHOUT SYMPTOMS, SALINE LOCKED. RT FEMORAL AGUILAR CATH, INFUSING PROPOFOL, 35MCG/KG. DRY WEIGHT 59.8. RASS -2, WITHDRAWS TO LIGHT TOUCH, DOES NOT OPEN EYES. CANNOT FOLLOW COMMANDS. PERRL, 3MM. PERRY IN PLACE, CLOUDY YELLOW URINE NOTED. BLACK DRIED UP SCAB TO LEFT SIDE LIP. BILATERAL BLISTERS TO EARS, VERSATEL DRESSINGS IN PLACE. SKIN TEAR TO SACRUM, OPEN WOUND, OPTIFOAM AND ZGUARD IN PLACE. THERAPEUTIC MATTRESS IN PLACE. BILATERAL SOFT WRIST RESTRAINTS IN PLACE, SKIN AND CIRCULATION WITHIN RANGE. DROPLET PRECAUTIONS FOR POSITIVE COVID. SIDERAILS UP x4, HOB 30 DEGREES. WILL CONTINUE TO MONITOR. Addendum: 03/06/20 at 0542 by Crista Snyder RN RECTAL THERMOMETER IN PLACE, TEMP 100.7, ICE PACKS IN PLACE
[2020-03-05] MEDS: ATORVASTATIN 20 MG TAB PO SCH (20:40)
--- NOTE | 2020-03-05 21:30 | NUR ---
APTT: 73.1, NOT IN THERAPEUTIC RANGE, WILL DECREASE HEPARIN DRIP BY 100U/HR = 900U/HR. RESIDENT AWARE. CARRIED OUT.
--- NOTE | 2020-03-05 22:00 | NUR ---
AIR CHECK CONFIRMED AT OGT, POSITIVE PLACEMENT. RESIDUALS HIGH, 210ML. CONTINUED TO HOLD FEEDING. ACCUCHECK 98, NO COVERAGE PER SLIDING SCALE. RECTAL THERMOMETER REINFORCED. PROVIDED VAP ORAL CARE/SKIN CARE. MODERATE AMOUNT OF DRY BLOOD AT NOSE AND MOUTH. PATIENT WITHDRAWS TO LIGHT TOUCH. TURNED AND REPOSITIONED PATIENT, ALSO SET MATTRESS TO ALTERNATE POSITIONING. FLACC 0. ALL NEEDS MET AT THIS TIME.
--- NOTE | 2020-03-05 23:15 | NUR ---
CALLED RESIDENT MD TO CONFIRM PATIENT HAS SCHEDULED HD TOMORROW, DOES PATIENT NEED UNITS OF PRBC's. CONFIRMED OK NO NEED FOR UNITS. RESIDENT AWARE OF ACTIVE BLEEDING AT MOUTH AND NOSE. CONTINUE TO MONITOR, OK TO KEEP HEPARIN DRIP, AWARE OF LATEST PTT VALUES.
[2020-03-06] VITALS (90 sets, daily range): BP systolic 12–163; BP diastolic 54–83
[2020-03-06] MEDS: PROPOFOL 1000 MG/100 ML PREMIX 100 ML IV PRN ×3 (00:35→22:43)
[2020-03-06] MEDS: Z-GUARD PASTE TP SCH ×2 (01:05→12:55)
[2020-03-06] MEDS: ALBUTEROL SULFATE/IPRATROPIU 3 ML SOL IH SCH ×4 (01:20→19:00)
--- NOTE | 2020-03-06 03:08 | NUR ---
2 RNs AND RT AT BEDSIDE TO PRONE POSITION PATIENT. NO INCIDENT NOTED, ALL SAFETY MEASURES IN PLACE THROUGHOUT TREATMENT. EKG LEADS PLACED ON BACK, OFFLOADED PRESSURE AREAS. SATURATIONS IMPROVED TO 98%, PATIENT BECAME MORE TACYPNEIC, RESPIRATIONS IN 40's, HEART RATE ELEVATED TO 110's. VENT ALARMING WITH HIGH PEAK PRESSURES, IN 60's PER RT. RESIDENT MD AWARE OF PATIENTS CONDITION. MONITOR FOR NOW AND UPDATE. SIDERAILS UP x4, RESTRAINTS IN PLACE, AIR CHECK COMPLETE, RESIDUALS 5 ML, FEEDING TURNED BACK ON AT 30ML/HR, WILL ASSESS IF TOLERATING.
--- NOTE | 2020-03-06 03:10 | NUR ---
PT PLACED IN PRONE POSITION HEAD TILTED TO THE RIGHT. PATENT AIRWAY. PT RR IS IN THE 40S AND PEAK PRESSURES IS IN THE 60S. KRISTAL LINARES CALLED DR. RUIZ TO NOTIFY AND WAS TOLD TO LEAVE PATIENT IN CURRENT SITUATION AND SEE IF PT CALMS DOWN. WILL CONT TO MONITOR
[2020-03-06] MEDS: BLOOD GLUCOSE MONITORING 1 DEV DEV FS SCH ×6 (04:00→20:00)
--- NOTE | 2020-03-06 04:23 | NUR ---
RESIDENT MD DR. BETANCOURT UPDATED ON PATIENTS CONDITION. SATURATIONS 97%, RESPIRATIONS STILL IN 40's, BREATHING IS LABORED, PEAK PRESSURES IN 60's. CONFIRMED OK TO PLACE PATIENT BACK TO SUPINE POSITION. WILL CARRY OUT.
--- NOTE | 2020-03-06 05:05 | NUR ---
RETURNED PATIENT TO SUPINE POSITION, SUCTIONED MOUTH, MODERATE AMOUNT OF BLOODY SECRETIONS. MINIMAL SECRETIONS NOTED AT ETT. HEART RATE BACK TO NSR. RESPIRATIONS IN 30's, SATURATIONS 93-95%. PROVIDED VAP ORAL CARE, SPONGE BATH, AND PERRY CARE. AIR CHECK CONFIRMED PLACEMENT FOR OGT, RESIDUALS LESS THAN 40ML, FEEDING REMAINS AT 30ML/HR. RESTRAINTS IN PLACE, NO SIGNS OF INJURIES. HOB 30 DEGREES, SIDERAILS UP, WILL CONTINUE TO MONITOR.
--- NOTE | 2020-03-06 05:18 | NUR ---
PT REMIANS ON DOCUMENTED SETTINGS. ETT REMAINS SECURED AND INTACT. PT IS TACHYPNEIC. PER DR. RUIZ. PT PLACED BACK ON SUPINE. WILL CONT TO MONITOR
[2020-03-06] MEDS: PIPERACILLIN/TAZOBACTAM 2.25 GM in DEXTROSE 5% 50 ML IV SCH ×3 (05:43→20:13)
[2020-03-06 06:01] LABS: HEMATOCRIT 32.4 % (36-48); HEMOGLOBIN 10.6 g/dL (12.0-16.0); MEAN CORPUSCULAR HEMOGLOBIN 28 pg (27-31); MEAN CORPUSCULAR HGB CONC 33 g/dL (33-37); MEAN CORPUSCULAR VOLUME 86.3 fL (80-94); PLATELET COUNT (AUTO) 269 K/uL (140-450); RED BLOOD CELL COUNT(AUTO) 3.75 MIL/uL (4.20-5.40); RED CELL DISTRIBUTION WIDTH 16.8 % (11.6-13.7); WHITE BLOOD COUNT (AUTO) 16.8 K/uL (4.8-10.8)
--- NOTE | 2020-03-06 06:55 | NUR ---
PATIENT TOLERATING TUBE FEEDING WELL, RESIDUALS 10ML, INCREASED RATE TO 40ML/HR. SUGAR CHECK COMPLETE, 96, NO COVERAGE NEEDED.
[2020-03-06 07:06] LABS: ALBUMIN 1.5 g/dL (3.4-5.0); ANION GAP 15.4 (8-16); CARBON DIOXIDE 26.8 mmol/L (21-32); MAGNESIUM 1.8 mg/dL (1.8-2.4); PHOSPHORUS 4.7 mg/dL (2.5-4.9); POTASSIUM 4.2 mmol/L (3.5-5.1); TOTAL BILIRUBIN 0.7 mg/dL (0.0-1.0)
--- NOTE | 2020-03-06 07:10 | NUR ---
SHIFT REPORT RECEIVED REPORT FROM AGRICULTURAL ENGINEERING TEACHER NURSE AT BEDSIDE. PT'S BREATHING IS EVEN AND LABORED. NOTED WITH RESPIRATIONS AT 35. ETT TO VENT, ACVC 20, FI02 80%, TV 375, PEEP 16. SATURATIONS 97%. LUNG SOUNDS DIMINISHED AT BASES. MODERATE AMOUNT OF BLOODY SECRETIONS AT MOUTH AND NOSE. SOME DRIED BLOOD. S1S2, ST ON MONITOR, HEART RATE [address], FEEDING CURRENTLY ON HOLD. RESIDUAL NOTED AT 200. ACTIVE BOWEL SOUNDS. EDEMA NOTED TO BILATERAL UPPER EXTREMITIES,MILD EDEMA AT FACE. NONPITTING. RIGHT CHEST TUNNEL CATH IN PLACE, DRESSING DRY AND INTACT. LEFT AC 20G, FLUSHED AND PATENT. LEFT FOREARM 20G, FLUSHED AND PATENT WITHOUT SYMPTOMS, SALINE LOCKED. RT FEMORAL AGUILAR CATH, INFUSING PROPOFOL, 35MCG/KG. DRY WEIGHT 59.8. RASS -2, WITHDRAWS TO LIGHT PAIN, DOES NOT OPEN EYES. CANNOT FOLLOW COMMANDS. PERRL, 3MM. PERRY IN PLACE, CLOUDY YELLOW URINE NOTED. BLACK DRIED UP SCAB TO LEFT SIDE LIP. BILATERAL BLISTERS TO EARS, SKIN TEAR TO SACRUM, OPEN WOUND, OPTIFOAM AND Z-GUARD IN PLACE. THERAPEUTIC MATTRESS IN PLACE. BILATERAL SOFT WRIST RESTRAINTS IN PLACE, SKIN AND CIRCULATION WITHIN RANGE. DROPLET PRECAUTIONS FOR POSITIVE COVID. SIDERAILS UP x4, HOB 30 DEGREES. BLOOD SUGAR AT 118. NO COVERAGE NEEDED. APTT AT 61.3 NO CHANGE. WILL CONTINUE TO MONITOR.
[2020-03-06 07:23] LABS: EOSINOPHILS % (MANUAL) 2 % (0-4); LYMPHOCYTES % (MANUAL) 6 % (20-46); MONOCYTES % (MANUAL) 5 % (5-12)
[2020-03-06] MEDS: INSULIN NPH HUMAN ISOPHANE 100 UNIT/ML VIAL SUBQ SCH ×2 (07:30→16:30)
[2020-03-06] MEDS: CHOLECALCIFEROL 1,000 IU TAB NG SCH (08:13)
[2020-03-06] MEDS: ZINC SULF 220 MG CAP PO SCH (08:13)
[2020-03-06] MEDS: ASCORBIC ACID 500 MG/5 ML ORASYR NG SCH (08:13)
[2020-03-06] MEDS: PANTOPRAZOLE 40 MG INJ VIAL IVP SCH ×2 (08:13→20:12)
[2020-03-06] MEDS: VIT-B COMP/VIT-C/FOLIC ACID 1 TAB PO SCH (08:14)
[2020-03-06] MEDS: LOSARTAN 50 MG TAB PO SCH (08:16)
--- NOTE | 2020-03-06 08:30 | NUR ---
PT REPOSITIONED TO RIGHT SIDE. SUCTIONED MOUTH, MODERATE AMOUNT OF BLOODY SECRETIONS AND BLOOD CLOTS NOTED. MORNING MEDICATIONS GIVEN. HEART RATE BACK TO NSR. RESPIRATIONS IN 35, SATURATIONS 93-95%. PROVIDED VAP ORAL CARE, SPONGE BATH, AND PERRY CARE. AIR CHECK CONFIRMED PLACEMENT FOR OGT, RESIDUALS GREATER THAN 200. FEEDING HELD RESTRAINTS IN PLACE, NO SIGNS OF INJURIES. HOB 30 DEGREES, SIDERAILS UP, WILL CONTINUE TO MONITOR.
--- NOTE | 2020-03-06 10:00 | NUR ---
PER DR MUNOZ HEPARIN DRIP ON HOLD. CHARGE NURSE DAK[place] EMERY.
--- NOTE | 2020-03-06 11:33 | NUR ---
ABG RESULTS GIVEN TO STATES TO DECREASE PEEP TO 14 cmH2O. WILL CONTINUE TO MONITOR.
[2020-03-06] MEDS: methylPREDNISolone SS 40 MG/ML VIAL IVP SCH ×3 (12:54→23:36)
--- NOTE | 2020-03-06 13:00 | NUR ---
PT REPOSITIONED. OGT RESIDUAL NOTED AT GREATER THAN 50. FEEDING IS ON HOLD. NOTED WITH TEMPERATURE at 99.[address] BLOOD SUGAR AT 116. NO COVERAGE NEEDED. ORAL SUCTION GIVEN. NOTED WITH BLOODY SECRETIONS. WILL CONTINUE TO MONITOR. CALL LIGHT IN REACH.
--- NOTE | 2020-03-06 13:41 | NUR ---
LEADERSHIP DEVELOPMENT INSTRUCTOR NOTE: SW CONTACTED ATTENDING PHYSICIAN REGARDING PATIENT AND HOSPICE CONSIDERATIONS. PER DR. SULTANA, PATIENT'S FAMILY IS UNDECIDED ON HOSPICE AND ARE STILL DECIDING AMONGST THEMSELVES OF A PLAN THAT THEY ARE ALL AGREEABLE TO. FAMILY STATED THAT THEY WOULD CONTACT PHYSICIAN TO LET THEM KNOW OF THEIR DECISION. SW WILL FOLLOW UP NEEDED.
--- NOTE | 2020-03-06 15:13 | NUR ---
NO CHANGE OF SKIN CONDITION, NO IMPROVING,WILL CONTINUE SAME INTERVENTION. SKIN FAILURE POSSIBLE RELATED TO COVID-19 WHICH LEAD TO VASCULAR CHANGES WITH TISSUE LESS TOLERANT TO PRESSURE AND SHEAR.
--- NOTE | 2020-03-06 15:38 | NUR ---
PT RECEIVING DIALYSIS AT THIS TIME. PT NOT IN ANY DISTRESS. WILL CONTINUE TO MONITOR.
--- NOTE | 2020-03-06 16:04 | NUR ---
03/06/20 RD FOLLOW UP COMPLETED PLEASE REFER TO NUTRITION ASSESSMENT UNDER CARE ACTIVITY FOR ESTIMATED NUTRITIONAL NEEDS. 1. HOLD TUBE FEEDINGS WITH RESIDUALS >200 ML, RESUME FEEDINGS IF <100 ML 2. RESUME NEPRO 1.8 TUBE FEEDING AT 10 ML/HR , ADVANCE BY 10 ML/HR UNTIL GOAL 40 ML/HR WITH PROSOURCE BID AND DIANE BID -THIS WILL PROVIDE 960 ML, 1848 CALORIES, 107 GM OF PROTEIN, WHICH MEETS 100% OF ESTIMATED KCAL AND PROTEIN NEEDS 3. CONTINUE FREE WATER FLUSH OF 100 ML Q6H 4. CONTINUE NEPHRO-BRE, VITAMIN C, AND ZINC FOR WOUND HEALING 5. RD TO FOLLOW-UP 2-3 DAYS, HIGH RISK RITU OG RD
--- NOTE | 2020-03-06 16:42 | NUR ---
PT'S BLOOD GLUCOSE LEVEL NOTED AT 156. PT IS NPO. HUMALOG AND NPH ON HOLD. DR MUNOZ NOTIFIED.
--- NOTE | 2020-03-06 17:00 | NUR ---
DIALYSIS 2L FLUIDS REMOVED.
--- NOTE | 2020-03-06 17:32 | NUR ---
PT TACHYPNEIC @40 RR PT ALSO PEAK PRESSURING INTO HIGH 50'S cmH2O. PT SWITCHED TO A/C PC 18, Pinsp 22, Tinsp 0.70, PEEP 14 AND FIO2 70%. PT ACHIEVING ADEQUATE VT. NURSE AWARE AND DR AWARE OF PT STATUS. VENT ALARMS ON AND FUNCTIONING. ETT IS SECURE WITH A PATENT AIRWAY.
--- NOTE | 2020-03-06 17:40 | NUR ---
PT ORALLY SUCTIONED OBTAINED MODERATE AMOUNT OF BLOODY THICK SECRETIONS. NURSE AWARE.
--- NOTE | 2020-03-06 17:45 | NUR ---
NOTED WITH RESPIRATION RATE AT 40-45 PER MIN. INCREASED PROPOFOL TO 50 MCG. PRESSURE CONTROL SETTINGS AT P-INS18, R:20, PEEP: 14, FIO2: 70%. WILL CONTINUE TO MONITOR.
--- NOTE | 2020-03-06 19:15 | NUR ---
SHIFT REPORT GIVEN TO PENETRATION TESTER NURSE FOR CONTINUATION OF CARE.
--- NOTE | 2020-03-06 20:00 | NUR ---
PT TO ETT TO VENT- A/C PC FIO2 70%, PINSP 22, RATE 20, PEEP 14. NO SIGNS OF DISTRESS OBSERVED. PERRY CATHETER IN PLACE DRAINING TO GRAVITY. SIDE RAILS UP, BED IN LOW POSITION. LUNGS ARE DIMINISHED IN ALL QUADRANTS UPON AUSCULTATION. NO RESPIRATORY DISTRESS. OGT INTACT AND PATENT, HELD FEEDING FOR NOW DUE TO INCREASE IN RESIDUALS. ON PROPOFOL AT 50MCG/KG/MIN RASS -2, WITHDRAWS TO PAIN. DRY WEIGHT OF 59.8KG. SOFT WRIST RESTRAINTS TO BILATERAL UPPER EXTREMITIES. WILL CONTINUE TO MONITOR PT.
[2020-03-06] MEDS: ATORVASTATIN 20 MG TAB PO SCH (20:13)
--- NOTE | 2020-03-06 20:20 | NUR ---
CLARIFIED ORDERS FOR MD GUEVARA STATED TO RESUME TONIGHT, NGT RESIDUALS 170 ML, DARK GASTRIC FLUID, FEEDING ON HOLD UNTIL <[address] BETANCOURT ABOUT RR 30-40 HR 102 BP 116/67 SPO2 97% ON 70% FIO2 PRESSURE CONTROL; PROPOFOL @ 50 MCG/KG/MIN; PRN MORPHINE ORDERED. WILL CONTINUE TO MONITOR.
[2020-03-06] MEDS ORDERED: MORPHINE SULFATE 2 MG/ML SYR IVP SCH (20:25)
--- NOTE | 2020-03-06 20:32 | NUR ---
1850 [facility]
--- NOTE | 2020-03-06 21:00 | NUR ---
150CC RESIDUALS FROM OGT. MADE AWARE. STILL HOLD FEEDING PER .
[2020-03-07] VITALS (98 sets, daily range): BP systolic 92–135; BP diastolic 47–95
--- NOTE | 2020-03-07 | NUR ---
PT SEDATED. RASS -2. NO DISTRESS OBSERVED. WILL CONTINUE TO MONITOR.
--- NOTE | 2020-03-07 00:15 | NUR ---
PATIENT PLACED ON PRONE POSITION. NO DISTRESS OBSERVED AFTER REPOSITIONING. WILL MONITOR PATIENT.
--- NOTE | 2020-03-07 00:16 | NUR ---
0010 helped turn patient prone. et tube in place
[2020-03-07] MEDS ORDERED: MORPHINE SULFATE 2 MG/ML SYR IVP PRN (00:25)
--- NOTE | 2020-03-07 01:28 | NUR ---
PT EYES CLOSED. RESPIRATIONS ON THE 20'S. NO DISTRESS NOTED. WILL CONTINUE TO MONITOR.
[2020-03-07] MEDS: ALBUTEROL SULFATE/IPRATROPIU 3 ML SOL IH SCH ×2 (01:32→07:35)
[2020-03-07] MEDS: Z-GUARD PASTE TP SCH ×2 (01:32→13:17)
[2020-03-07] MEDS: PROPOFOL 1000 MG/100 ML PREMIX 100 ML IV PRN ×3 (03:35→16:07)
[2020-03-07] MEDS: BLOOD GLUCOSE MONITORING 1 DEV DEV FS SCH ×6 (04:00→20:00)
[2020-03-07] MEDS: MORPHINE SULFATE 2 MG/ML SYR IVP PRN ×2 (04:15→08:32)
--- NOTE | 2020-03-07 04:30 | NUR ---
OGT INTACT AND PATENT. 140CC GASTRIC RESIDUALS. FEEDING STILL ON HOLD. WILL CONTINUE TO MONITOR.
[2020-03-07] MEDS: methylPREDNISolone SS 40 MG/ML VIAL IVP SCH ×3 (05:05→18:04)
[2020-03-07] MEDS: PIPERACILLIN/TAZOBACTAM 2.25 GM in DEXTROSE 5% 50 ML IV SCH ×3 (05:06→20:57)
[2020-03-07 05:20] LABS: HEMOGLOBIN 10.3 g/dL (12.0-16.0); MEAN CORPUSCULAR HEMOGLOBIN 28 pg (27-31); MEAN CORPUSCULAR HGB CONC 32 g/dL (33-37); MEAN CORPUSCULAR VOLUME 86.3 fL (80-94); PLATELET COUNT (AUTO) 290 K/uL (140-450); RED BLOOD CELL COUNT(AUTO) 3.71 MIL/uL (4.20-5.40); RED CELL DISTRIBUTION WIDTH 17.1 % (11.6-13.7); WHITE BLOOD COUNT (AUTO) 11.6 K/uL (4.8-10.8)
[2020-03-07] MEDS: INSULIN LISPRO SLIDING SCALE 100 UNITS/ML VIAL SUBQ PRN ×3 (05:31→13:21)
[2020-03-07 05:55] LABS: ALBUMIN 1.5 g/dL (3.4-5.0); ANION GAP 16.6 (8-16); CARBON DIOXIDE 26.8 mmol/L (21-32); CREATININE 3.4 mg/dL (0.6-1.3); MAGNESIUM 1.8 mg/dL (1.8-2.4); PHOSPHORUS 7.3 mg/dL (2.5-4.9); POTASSIUM 4.4 mmol/L (3.5-5.1); TOTAL BILIRUBIN 0.6 mg/dL (0.0-1.0)
[2020-03-07 06:00] LABS: LYMPHOCYTES % (MANUAL) 4 % (20-46); MONOCYTES % (MANUAL) 1 % (5-12)
--- NOTE | 2020-03-07 07:32 | NUR ---
BEDSIDE REPORT RECIEVED FROM INSURANCE FOLLOW UP REP NURSE, PT IN PRONE POSITION, PT SEDATED TO RASS -2 WITH PROPOFOL, DRY WT 59.8GK, ETT TO VENT 7.5F, 21CM AT TEETH, ACPC FIO2 70%, RR 20, PEEP 14, EQUAL CHEST RISE AND FALL NOTED, SKIN COLOW WNL, VITALS STABLE ON MONITOR HR 90, RR25, O2SAT 98%, OGT IN PLACE, FEEDING ON HOLD, R CHEST WALL TUNNEL CATH AND R FEMORAL HD CATHs, LFA 20G, LAV 20G, ALL SITES WNL, PERRY CATH IN PLACE, DRAINING MINIMAL AMT TO GRAVITY, PT CURRENTLY ON PROPOFOL AT 50MCG/KG/MIN (17.94ML/HR), NS TKO AT 5ML/HR. ALL SAFETY MEASURES IN PLACE, POC REVIEWED, WILL CONTINUE TO MONITOR.
[2020-03-07] MEDS: INSULIN NPH HUMAN ISOPHANE 100 UNIT/ML VIAL SUBQ SCH (08:00)
--- NOTE | 2020-03-07 08:30 | NUR ---
AM MEDS GIVEN, BP MED HELD FOR LOW BP, ARM POSITIONS CHANGED, OGT RESIDUAL 140ML DARK GREEN, DR VASQUEZ MADE AWARE.
[2020-03-07] MEDS: LOSARTAN 50 MG TAB PO SCH (09:00)
[2020-03-07] MEDS: PANTOPRAZOLE 40 MG INJ VIAL IVP SCH ×2 (09:18→20:53)
[2020-03-07] MEDS: CHOLECALCIFEROL 1,000 IU TAB NG SCH (09:18)
[2020-03-07] MEDS: ASCORBIC ACID 500 MG/5 ML ORASYR NG SCH (09:18)
[2020-03-07] MEDS: VIT-B COMP/VIT-C/FOLIC ACID 1 TAB PO SCH (09:20)
[2020-03-07] MEDS: ZINC SULF 220 MG CAP PO SCH (09:20)
[2020-03-07] MEDS: ALBUTEROL HFA MDI 90 MCG/ACTUATION 8 GM INH SCH ×2 (13:09→18:59)
--- NOTE | 2020-03-07 16:45 | NUR ---
BEDSIDE GLUCOSE 148, NO INSULIN NEEDED PER SLIDING SCALE, DR ADAMS NOTIFIED, HOLD NPH, OGT RESIDUAL 230ML, HOLD FEEDING FOR NOW, DR ADAMS TO ORDER REGLAN AND HEPARIN DRIP.
[2020-03-07] MEDS ORDERED: hePARIN / DEXT 5% PREMIX 250 ML IV SCH (16:55)
--- NOTE | 2020-03-07 17:50 | NUR ---
LEFT FA IV SITE WITH SOILED DRESSING, IV DC'D, CATH TIP INTACT, BLEEDING CONTROLLED, NEW IV STARTED TO RIGHT FA 20G.
--- NOTE | 2020-03-07 18:30 | NUR ---
RT AT BEDSIDE TO CHANGE ETT SECURING DEVICE, OPEN WOUNDS FOUND ON BILAT CHEEKS UNDER THE DEVICE, BLACK OPEN WOUNDS WITH NO DRIANAGE, CLEANED WITH NS, COVERED WITH VERSATEL, OPTIFOAM, DUODERM, THEN THE ETT SECRING DEVICE ON TOP, PHOTOS TAKEN, WOUND RECORD UPDATED.
--- NOTE | 2020-03-07 18:38 | NUR ---
At bedside with RN and Charge, changed pt position to spine, pt tolerated well, ET tube secure and intact. Changed anchor-fast harness and found skin breakdown, RN placed mess dressing , pad, and endo-derm to protect skin, secures anchor-fast, ET tube secure and intact. Charles continue to monitor pt.
--- NOTE | 2020-03-07 20:00 | NUR ---
PT ETT TO VENT, ACPC FI02 60%, PINSP 18, RATE 20, PEEP 12. LUNG SOUNDS DIMINISHED, SATURATIONS 94%. PT SEDATED, AN -2, WITHDRAWS TO LIGHT TOUCH, DOES NOT OPEN EYES. PERRL 3MM, BRISK. PROPOFOL 50MCG/KG/MIN (17.94), DRY WEIGHT USED 59.8. RT FA, 20G, FLUSHED AND PATENT, SALINE LOCKED. RIGHT UPPER CHEST, TUNNELED CATH. RIGHT FEMORAL FOR HD IN PLACE. PATENT, NO SYMPTOMS. S1S2, SR ON MONITOR. BP STABLE. LEFT AC 20G, FLUSHED PATENT NO SYMPTOMS. OGT IN PLACE. FEEDING HELD AT THIS TIME. ABDOMEN LARGE, SOFT AND NONTENDER, BOWEL SOUNDS HYPOACTIVE. PERRY IN PLACE, MINIMAL OUTPUT, CLOUDY SAW/YELLOW URINE. SKIN NOT INTACT, SKIN TEAR TO BUTTOCKS, BLISTERS TO BOTH EARS, PRESSURE INJURIES TO RIGHT AND LEFT CHEEKS, DRESSINGS IN PLACE WITH ETT SECUREMENT, SMALL PRESSURE INJURY TO LEFT NECK/FACE-RADHA, BILATERAL UPPER EXTREMITIES HAS GENERALIZED EDEMA. SOFT WRIST RESTRAINTS IN PLACE, SKIN INTACT. HOB 30 DEGREES, SIDE RAILS UP, THERAPEUTIC MATTRESS IN PLACE, DROPLET PRECAUTIONS. WILL CONTINUE TO MONITOR.
[2020-03-07] MEDS: hePARIN / DEXT 5% PREMIX 250 ML IV SCH (20:50)
[2020-03-07] MEDS: METOCLOPRAMIDE 10 MG/2 ML INJ VIAL IVP SCH (20:53)
[2020-03-07] MEDS: ATORVASTATIN 20 MG TAB PO SCH (20:55)
--- NOTE | 2020-03-07 21:05 | NUR ---
HEPARIN DRIP INITIATED. PER , OK TO NOT GIVEN INITIAL BOLUS, JUST START DRIP WITH INITIAL PROTOCOL. CARRIED OUT. SCHEDULED MEDS GIVEN. AIR CHECK CONFIRMED AT OGT, RESIDUALS LESS THAN 20ML. TUBE FEEDING STARTED AT 10ML/HR. PROVIDED VAP ORAL CARE, NO BLEEDING NOTED, ONLY OLD DRIED BLOOD FROM LIP, APPLIED MOISTURIZER. TURNED AND REPOSITIONED PATIENT, OFFLOADED PRESSURE AREAS. FLACC 0, ALL NEEDS MEDS AT THIS TIME.
--- NOTE | 2020-03-07 23:20 | NUR ---
CHECKED SKIN AT RESTRAINTS, WITHIN RANGE, GOOD CIRCULATION, NO INJURIES NOTED. TURNED AND REPOSITIONED. CHANGED CENTRAL LINE DRESSING AT RIGHT FEMORAL SITE. PATIENT TOLERATED WELL. ALL LINES PATENT. FLACC 0. SAFETY MEASURES IN PLACE, WILL CONTINUE TO MONITOR.
[2020-03-08] VITALS (104 sets, daily range): BP systolic 100–161; BP diastolic 58–87
--- NOTE | 2020-03-08 00:10 | NUR ---
CHECKED TUBE FEEDING RESIDUALS, PATIENT TOLERATING WELL, LESS THAN 30ML, INCREASED FEEDING TO 20ML/HR. PROVIDED VAP CARE, WITHDRAWS TO SUCTION. CHECKED BLOOD SUGAR, 124, NO COVERAGE NEEDED. TURNED AND REPOSITIONED PATIENT. HOB 30 DEGREES. SIDERAILS UP, BED LOCKED AND IN LOWEST POSITION. WILL CONTINUE TO MONITOR.
[2020-03-08] MEDS: methylPREDNISolone SS 40 MG/ML VIAL IVP SCH ×5 (00:42→23:56)
[2020-03-08] MEDS: PROPOFOL 1000 MG/100 ML PREMIX 100 ML IV PRN ×5 (00:44→22:52)
[2020-03-08] MEDS: ALBUTEROL HFA MDI 90 MCG/ACTUATION 8 GM INH SCH ×4 (00:49→19:00)
[2020-03-08] MEDS: Z-GUARD PASTE TP SCH ×2 (01:00→12:52)
[2020-03-08] MEDS: BLOOD GLUCOSE MONITORING 1 DEV DEV FS SCH ×7 (04:00→23:55)
[2020-03-08] MEDS: MORPHINE SULFATE 2 MG/ML SYR IVP PRN (04:55)
--- NOTE | 2020-03-08 05:00 | NUR ---
PATIENT GRIMACES WITH LIGHT TOUCH, SATURATIONS GOING DOWN TO 88%, BITING ON TUBE WHEN PROVIDED ORAL CARE. MEDICATED WITH PRN IVP MORPHINE. 2 RN's AND RT AT BEDSIDE TO PRONE POSITION PATIENT. TOLERATED WELL. SAFETY MEASURES IN PLACE. RESTRAINTS IN PLACE, SKIN INTACT. PROVIDED SPONGE BATH AND PROVIDED WOUND BARRIER CREAM. SIDERAILS UP, REVERSE TRENDELENBURG POSITION. FI02 50%. WILL CONTINUE TO MONITOR.
[2020-03-08 05:08] LABS: HEMATOCRIT 29.8 % (36-48); HEMOGLOBIN 9.8 g/dL (12.0-16.0); MEAN CORPUSCULAR HEMOGLOBIN 28 pg (27-31); MEAN CORPUSCULAR HGB CONC 33 g/dL (33-37); MEAN CORPUSCULAR VOLUME 85.5 fL (80-94); PLATELET COUNT (AUTO) 327 K/uL (140-450); RED BLOOD CELL COUNT(AUTO) 3.49 MIL/uL (4.20-5.40); RED CELL DISTRIBUTION WIDTH 16.4 % (11.6-13.7); WHITE BLOOD COUNT (AUTO) 13.5 K/uL (4.8-10.8)
[2020-03-08 05:46] LABS: ANION GAP 21.5 (8-16); CARBON DIOXIDE 22.3 mmol/L (21-32); POTASSIUM 4.8 mmol/L (3.5-5.1)
[2020-03-08] MEDS: PIPERACILLIN/TAZOBACTAM 2.25 GM in DEXTROSE 5% 50 ML IV SCH ×3 (05:48→21:56)
[2020-03-08] MEDS: METOCLOPRAMIDE 10 MG/2 ML INJ VIAL IVP SCH ×3 (05:48→21:54)
[2020-03-08 05:53] LABS: CREATININE 4.4 mg/dL (0.6-1.3)
--- NOTE | 2020-03-08 06:28 | NUR ---
HELD HEPARIN DRIP PER PROTOCOL, PTT: 114.6. HOLD FOR ONE HOUR, RESUME AND DECREASE BY 190 TO EQUAL 930 UNITS/HR. WILL CARRY OUT.
[2020-03-08 07:01] LABS: LYMPHOCYTES % (MANUAL) 3 % (20-46); MONOCYTES % (MANUAL) 7 % (5-12)
--- NOTE | 2020-03-08 07:35 | NUR ---
RESTARTED HEPARIN DRIP PER PROTOCOL. DECREASED TO 930UNITS/HOUR.
--- NOTE | 2020-03-08 07:40 | NUR ---
RECEIVED BEDSIDE REPORT FROM GUEST HOUSE MANAGER NURSE, PT IS ON PRONE POSITION, SEDATED, RASS -2, VSS, FLACC 0, ETT to VENT WITH AC PC FIO2 50%, NO S/S OF DISTRESS, CLEAR LUNG SOUNDS JUANPABLO. SR ON HEALTHCARE INTERPRETER, SOFT ROUND ABDOMEN WITH HYPOACTIVE BOWEL SOUNDS, OGT IN PLACE, FEEDING ON HELD AT THIS TIME, COFFEE GROUND >200ML OF RESIDUALS NOTED, MD AWARE, PERRY CATHETER IN PLACE, NO URINE OUTPUT NOTED, SKIN IS WARM AND DRY TO TOUCH, OPEN WOUND PRESENT (SEE WOUND ASSESSMENT), HD DIALYSIS CATHETER TO RIGHT FEMORAL WITH PIGGY TAIL, RUNNING PROPOFOL AT 45 MCG/KG/MIN, DRY WEIGHT 59.8KG, AND HEPARIN AT 930 UNITS/HR, IV LINE TO LAC 20GA AND RFA 20GA, PATENT AND SL. SOFT WRIST RESTRAIN FOR SAFETY, WILL CONTINUE TO MONITOR.
[2020-03-08] MEDS: CHOLECALCIFEROL 1,000 IU TAB NG SCH (08:51)
[2020-03-08] MEDS: ASCORBIC ACID 500 MG/5 ML ORASYR NG SCH (08:51)
[2020-03-08] MEDS: PANTOPRAZOLE 40 MG INJ VIAL IVP SCH ×2 (08:51→21:54)
[2020-03-08] MEDS: ZINC SULF 220 MG CAP PO SCH (08:51)
[2020-03-08] MEDS: VIT-B COMP/VIT-C/FOLIC ACID 1 TAB PO SCH (08:51)
[2020-03-08] MEDS: LOSARTAN 50 MG TAB PO SCH (08:51)
[2020-03-08 08:55] LABS: PHOSPHORUS 9.1 mg/dL (2.5-4.9)
[2020-03-08] MEDS: INSULIN NPH HUMAN ISOPHANE 100 UNIT/ML VIAL SUBQ SCH ×2 (09:00→16:41)
--- NOTE | 2020-03-08 09:00 | NUR ---
SCHEDULED MEDICATION GIVEN, ORAL CARE PROVIDED, PT TOLERATED WELL.
[2020-03-08] MEDS: INSULIN LISPRO SLIDING SCALE 100 UNITS/ML VIAL SUBQ PRN ×4 (09:04→22:50)
--- NOTE | 2020-03-08 12:00 | NUR ---
PATIENT STILL ON PRONE POSITION, NO S/S OF DISTRESS, VSS, FLACC 0, ORAL CARE PROVIDED, POSITION CHANGED FOR OFF LOAD PRESSURE.
--- NOTE | 2020-03-08 12:05 | NUR ---
PT REMAINS IN PRONE POSITION. PT NOT IN ANY DISTRESS . WILL CONTINUE TO MONITOR.
[2020-03-08] MEDS: ALUMINUM HYDROXIDE 64 MG/ML BOTTLE PO SCH ×2 (12:52→21:54)
--- NOTE | 2020-03-08 13:00 | NUR ---
WOUND CARE PROVIDED, PT TOLERATED WELL.
--- NOTE | 2020-03-08 15:15 | NUR ---
HELD HEPARIN DRIP AT THIS TIME, PTT >150, DR. VASQUEZ MADE AWARE.
--- NOTE | 2020-03-08 16:00 | NUR ---
NO CHANGE OF CONDITION AT THIS TIME, DR. BERTRAND CAME IN TO SEE PATIENT AT BEDSIDE, NO NEW ORDER. VSS, FLACC 0, ORAL CARE AND PERRY CATHETER CARE PROVIDED, POSITION CHANGED FOR OFF LOAD PRESSURE.
--- NOTE | 2020-03-08 17:15 | NUR ---
RESTARTED HEPARIN DRIP AT 740 UNITS/HR PER PROTOCOL, WILL RECHECK PTT AFTER 6 HOURS.
--- NOTE | 2020-03-08 17:20 | NUR ---
PT PLACED IN SUPINE PORTION WITH RT AT BEDSIDE, VSS, NO S/S OF DISTRESS, NO S/S OF INJURY, ORAL CARE PROVIDED, WILL CONTINUE TO MONITOR.
--- NOTE | 2020-03-08 17:21 | NUR ---
PEEP DECREASED TO 66xmP2Z PER . PT NOW IN SUPINE POSITION. PT NOT IN ANY DISTRESS AT THIS TIME. WILL CONTINUE TO MONITOR. ETT IS SECURE WITH A PATENT AIRWAY. VENT ALARMS ON AND FUNCTIONING.
--- NOTE | 2020-03-08 19:10 | NUR ---
REPORT GIVEN TO NOODLE MAKER NURSE FOR CONTINUE OF CARE, PT IS IN STABLE CONDITION AT THIS TIME.
--- NOTE | 2020-03-08 20:10 | NUR ---
PT ETT TO VENT, ACPC FI02 50%, PINSP 18, RATE 20, PEEP 10. LUNG SOUNDS DIMINISHED, SATURATIONS 97%. PT SEDATED, RASS -2, WITHDRAWS TO LIGHT TOUCH, DOES NOT OPEN EYES. PERRL 3MM, BRISK. PROPOFOL 45MCG/KG/MIN (16.14), DRY WEIGHT USED 59.8. RT FA, 20G, FLUSHED AND PATENT, SALINE LOCKED. RIGHT UPPER CHEST, TUNNELED CATH. RIGHT FEMORAL FOR HD IN PLACE. PATENT, NO SYMPTOMS. S1S2, SR ON MONITOR. BP STABLE. LEFT AC 20G, FLUSHED PATENT NO SYMPTOMS. OGT IN PLACE. FEEDING HELD AT THIS TIME. BLACK RESIDUALS OVER 200ML. ABDOMEN LARGE, SOFT AND NONTENDER, BOWEL SOUNDS HYPOACTIVE. PERRY IN PLACE, MINIMAL OUTPUT, CLOUDY SAW/YELLOW URINE. SKIN NOT INTACT, SKIN TEAR TO BUTTOCKS, BLISTERS TO BOTH EARS, PRESSURE INJURIES TO RIGHT AND LEFT CHEEKS, DRESSINGS IN PLACE WITH ETT SECUREMENT, SMALL PRESSURE INJURY TO LEFT NECK/FACE-CONSUMER PRODUCT ADVISOR, BILATERAL UPPER EXTREMITIES HAS GENERALIZED EDEMA. RECTAL TEMP 97.4. SOFT WRIST RESTRAINTS IN PLACE, SKIN INTACT. HOB 30 DEGREES, SIDE RAILS UP, THERAPEUTIC MATTRESS IN PLACE, DROPLET PRECAUTIONS. WILL CONTINUE TO MONITOR.
--- NOTE | 2020-03-08 21:36 | NUR ---
RECEIVED REPORT FROM AM SHIFT. PATIENT SEEN AND ASSESSED. PATIENT IS INTUBATED WITH ETT SIZE 7.5 AND SECURED WITH ANCHOR-FAST AT 21CM. AUSCULTATION REVEALS BILATERAL CLEAR BREATH SOUNDS. PATIENT ON VENT SETTINGS AC/PC 18, 20,+10, 50% WITH SPO2 OF 998%. VENT PLUGGED IN RED OUTLET, HOB > 30 DEGREES, AMBU BAG AT BEDSIDE, AND ALARMS SET AND AUDIBLE. PATIENT IS IN NO APPARENT RESPIRATORY DISTRESS AT THIS TIME. MDI TX GIVEN ORDERED AND PATIENT TOLERATED WELL WITH NO ADVERSE REACTION. SUCTIONED SCANT AMOUNT OF YELLOW THICK SECRETIONS FROM ETT. AIRWAY IS PATIENT. WILL CONTINUE TO MONITOR PATIENT. Addendum: 03/09/20 at 0022 by Igor Burgess RT SPO2 98%
[2020-03-08] MEDS: ATORVASTATIN 20 MG TAB PO SCH (21:54)
--- NOTE | 2020-03-08 23:56 | NUR ---
AIR CHECK COMPLETE, CONFIRMED PLACEMENT. FEEDING STILL ON HOLD AT THIS TIME, RESIDUALS 100ML OF COFFEE GROUND/BLACK GASTRIC SECRETIONS. BLOOD SUGAR CHECKED, 131, NO COVERAGE NEEDED. PROVIDED ORAL CARE AND TURNED POSITIONED TO OFFLOAD PRESSURE AREAS. FLACC 0. RECTAL TEMP WNL. WILL CONTINUE TO MONITOR.
[2020-03-09] VITALS (94 sets, daily range): BP systolic 74–166; BP diastolic 47–85
[2020-03-09] MEDS: hePARIN / DEXT 5% PREMIX 250 ML IV SCH (00:42)
--- NOTE | 2020-03-09 00:45 | NUR ---
PTT HIGH, ABOVE 150. HOLD HEPARIN DRIP FOR 1 HOUR, DECREASE DOSE BY 190, RESTART DRIP AT 0145 AT 550UNITS/HR. WILL CARRY OUT.
[2020-03-09] MEDS: Z-GUARD PASTE TP SCH ×2 (01:00→13:11)
[2020-03-09] MEDS: ALBUTEROL HFA MDI 90 MCG/ACTUATION 8 GM INH SCH ×4 (01:41→19:58)
--- NOTE | 2020-03-09 02:15 | NUR ---
NO CHANGE IN CONDITION AT THIS TIME. PATIENT RASS -2, WITHDRAWS TO PAIN. SKIN AND CIRCULATION WITHIN RANGE AT BOTH WRISTS. SPECIALTY MATTRESS IN PLACE, OFFLOADED PRESSURE SITES/ALTERNATE SIDES. FLACC 0.
[2020-03-09] MEDS: BLOOD GLUCOSE MONITORING 1 DEV DEV FS SCH ×5 (04:00→20:00)
--- NOTE | 2020-03-09 04:35 | NUR ---
AIR CHECK CONFIRMED PLACEMENT AT OGT. RESIDUALS LESS THAN 100ML. RESIDUALS ARE DARK BROWN/BLACK. PATIENT STILL HAS SOME BLOODY SECRETIONS FROM MOUTH. RESIDENT MD AWARE. OK TO HOLD FEEDING FOR NOW AND WHEN PRONED AT 0500. WILL CARRY OUT.
[2020-03-09] MEDS: PIPERACILLIN/TAZOBACTAM 2.25 GM in DEXTROSE 5% 50 ML IV SCH ×3 (05:00→22:50)
[2020-03-09] MEDS: ALUMINUM HYDROXIDE 64 MG/ML BOTTLE PO SCH ×3 (05:00→20:39)
[2020-03-09] MEDS: METOCLOPRAMIDE 10 MG/2 ML INJ VIAL IVP SCH ×3 (05:00→20:40)
[2020-03-09] MEDS: MORPHINE SULFATE 2 MG/ML SYR IVP PRN (05:15)
--- NOTE | 2020-03-09 05:25 | NUR ---
2 RN's AND RT AT BEDSIDE TO PRONE POSITION PATIENT. TOLERATED FAIRLY. OGT AND ETT SECURED. AIRWAY PATENT. VENT SETTINGS SAME: ACPC 50% RATE 20 PEEP 10. SATURATIONS 90%. EKG LEADS AT BACK. PERFORMED SPONGE BATH AND CLEANING. DRESSING AT SACRUM REPLACED. PROVIDED ORAL CARE, STILL HAS MODERATE AMOUNT OF BLOOD, SUCTIONED ONE SMALL BLOODY MUCUS PLUG. HEPARIN STILL INFUSING AT 550UNITS/HR. PROPOFOL AT 45MCG/KG/MIN, RASS -2. IN REVERSE [place]ENDE[place]G POSITION. FEEDING ON HOLD. RESTRAINTS IN PLACE. BED LOCKED AND SIDERAILS UP. WILL CONTINUE TO MONITOR.
[2020-03-09] MEDS: methylPREDNISolone SS 40 MG/ML VIAL IVP SCH ×4 (06:09→23:04)
[2020-03-09 06:12] LABS: MAGNESIUM 2.2 mg/dL (1.8-2.4)
[2020-03-09 06:15] LABS: BASOPHILS % (AUTO) 0.2 % (0.0-2.0); EOSINOPHILS % (AUTO) 0.1 % (0.0-4.0); HEMATOCRIT 27.4 % (36-48); HEMOGLOBIN 9.1 g/dL (12.0-16.0); LYMPHOCYTES # (AUTO) 0.3 K/uL (2.5-16.5); LYMPHOCYTES % (AUTO) 2.6 % (20.5-51.1); MEAN CORPUSCULAR HEMOGLOBIN 28 pg (27-31); MEAN CORPUSCULAR HGB CONC 33 g/dL (33-37); MEAN CORPUSCULAR VOLUME 85.1 fL (80-94); MONOCYTES # (AUTO) 0.4 K/uL (0.8-1.0); MONOCYTES % (AUTO) 3.2 % (1.7-9.3); NEUTROPHILS # (AUTO) 10.6 K/uL (1.8-7.7); NEUTROPHILS % (AUTO) 93.9 % (42.2-75.2); PLATELET COUNT (AUTO) 322 K/uL (140-450); RED BLOOD CELL COUNT(AUTO) 3.21 MIL/uL (4.20-5.40); RED CELL DISTRIBUTION WIDTH 16.6 % (11.6-13.7); WHITE BLOOD COUNT (AUTO) 11.3 K/uL (4.8-10.8)
--- NOTE | 2020-03-09 06:15 | NUR ---
AT APPROXIMATELY 0530, PATIENT WAS SUCCESSFULLY PLACED IN PRONE POSITION. AIRWAY IS PATENT. ETT IS SECURED AND INTACT. PATIENT IN NO RESPIRATORY DISTRESS AT THIS TIME. SPO2 OF 90%. RNs AT BEDSIDE. WILL CONTINUE TO MONITOR PATIENT.
[2020-03-09 06:17] LABS: ANION GAP 19.8 (8-16); CARBON DIOXIDE 22.4 mmol/L (21-32); POTASSIUM 5.2 mmol/L (3.5-5.1)
--- NOTE | 2020-03-09 06:18 | NUR ---
PATIENT STILL REMAINS ON SAME VENT SETTINGS. AIRWAY IS PATENT. ETT IS SECURED AND INTACT. PATIENT IN NO DISTRESS AT THIS TIME. WILL CONTINUE TO MONITOR.
[2020-03-09 06:30] LABS: CREATININE 5.6 mg/dL (0.6-1.3)
[2020-03-09 06:31] LABS: PHOSPHORUS 10.5 mg/dL (2.5-4.9)
--- NOTE | 2020-03-09 07:30 | NUR ---
RECEIVED CHANGE OF SHIFT REPORT FROM FILTER CLOTH MAKER NURSE. PT IS FOUND IN THE PRONE AND REVERSE TRENDELENBURG POSITION W/ HEAD FACING RIGHT SIDE. PT IS AROUSABLE TO LIGHT PAIN. EYES PERRL. 3MM. UNABLE TO FOLLOW SIMPLE COMMANDS. PT IS INTUBATED CONNECTED TO VENT. SETTINGS ARE A/RISK CONTROL ANALYST FIO2 50% PINSP 18 RR 20 PEEP 10. LUNG SOUNDS ARE CLEAR. EQUAL RISE AND FALL OF THE BACK. UNABLE TO ASSESS HEART TONES. +2 RADIAL PULSES FELT. CAP REFILL <3 SECONDS. SR ON MONITOR. PT HAS OGT NOT CONNECTED TO FEEDING. THERE WAS BLACK GASTRIC RESIDUALS 100 ML. DOCTOR IS AWARE. PT HAS PERRY CATHETER. NO UO AT THIS TIME. PT ALSO IS CONNECT TO RECTAL TEMPERATURE. 96.7. SKIN IS NOT INTACT. THERE IS OPTIFORM DRESSING ON TOP OF BUTTOCKS/SACRAL AREA THAT IS DCI. UNDERNEATH IS OPEN WOUND. SEE WOUND ASSESSMENT. PT IS ON RESTRAINTS. SKIN UNDERNEATH IS INTACT. NO SIGNS OF INJURY. BED IS LOCKED IN LOW POSITION. CALL LIGHT WITHIN REACH. WILL CONTINUE TO MONITOR.
[2020-03-09] MEDS: PANTOPRAZOLE 40 MG INJ VIAL IVP SCH ×2 (09:15→20:40)
[2020-03-09] MEDS: ASCORBIC ACID 500 MG/5 ML ORASYR NG SCH (09:15)
[2020-03-09] MEDS: VIT-B COMP/VIT-C/FOLIC ACID 1 TAB PO SCH (09:16)
[2020-03-09] MEDS: CHOLECALCIFEROL 1,000 IU TAB NG SCH (09:16)
[2020-03-09] MEDS: ZINC SULF 220 MG CAP PO SCH (09:16)
[2020-03-09] MEDS: LOSARTAN 50 MG TAB PO SCH (09:16)
[2020-03-09] MEDS: PROPOFOL 1000 MG/100 ML PREMIX 100 ML IV PRN ×3 (09:37→23:05)
--- NOTE | 2020-03-09 11:41 | NUR ---
PT REMAINS IN PRONE POSITION TOLERATING WELL. PT NOT IN ANY DISTRESS. WILL CONTINUE TO MONITOR.
--- NOTE | 2020-03-09 13:20 | NUR ---
PERFORMED WOUND ASSESSMENT. TOOK PICTURES OF BUTTOCKS. SEE WOUND ASSESSMENT.
--- NOTE | 2020-03-09 13:30 | NUR ---
TURNED PT FROM PRONE TO SUPINE FOR IMPENDING HEMODIALYSIS PROCEDURE. ASSISTED BY CONSTRUCTION JOB TITLES AND RT. PT TOLERATED REPOSITIONING FAIRLY. PILLOWS PLACED UNDERNEATH PT TO OFFLOAD WEIGHT. GASTRIC RESIDUALS CHECKED AT THIS TIME. 20ML OF BLACK RESIDUALS TAKEN OUT.
--- NOTE | 2020-03-09 13:58 | NUR ---
PT PLACED IN SUPINE POSITION. ETT IS SECURE WITH A PATENT AIRWAY. WILL CONTINUE TO MONITOR.
--- NOTE | 2020-03-09 14:30 | NUR ---
PT TEMPERATURE BELOW 96. WILL APPLY BAIRHUGGER IN ATTEMPT TO RAISE TEMPERATURE.
[2020-03-09] MEDS ORDERED: TPN PER PHARMACY MC PRN (15:05)
--- NOTE | 2020-03-09 15:16 | NUR ---
03/09/20 RD FOLLOW UP COMPLETED PLEASE REFER TO NUTRITION ASSESSMENT UNDER CARE ACTIVITY FOR ESTIMATED NUTRITIONAL NEEDS. 1. RECOMMEND TPN PER PHARMACY 2. IF/WHEN PATIENT IS MEDICALLY STABLE TO RESUME TUBE FEEDING, CONSIDER NEPRO 1.8 AT 40 ML/HR X 24 HR. START AT 10 ML/HR, ADVANCE BY 10 ML/HR UNTIL GOAL REACHED WITH PROSOURCE BID AND DIANE BID -THIS WILL PROVIDE 960 ML, 1848 CALORIES, 107 GM OF PROTEIN, WHICH MEETS 100% OF ESTIMATED KCAL AND PROTEIN NEEDS 3. CONTINUE FREE WATER FLUSH OF 100 ML Q6H 4. CONTINUE NEPHRO-BRE, VITAMIN C, AND ZINC FOR WOUND HEALING 5. RD TO FOLLOW-UP 2-3 DAYS, HIGH RISK RITU OG RD
--- NOTE | 2020-03-09 15:20 | NUR ---
STAFF REPORT CHANGE OF SKIN CONDITION WHICH IS TO LEFT AND RIGHT FACE. UNAVOIDABLE PRESSURE ULCER INJURY DEVELOP FROM BOWLING ALLEY ATTENDANT AND PRONE POSITIONING WHICH ARE INTERVENTIONS TO SUSTAIN PT. LIFE. -BOWLING ALLEY ATTENDANT (ETT RO) RELATED PRESSURE INJURY UN-STAGEABLE TO RIGHT FACE 1X2.3CM AND LEFT FACE 2X3CM BLACK ESCHAR TISSUES GLORY WOUND SKIN RED INDICATED FURTHER DAMAGE RECOMMENDATION: APPLY VESATEL DRESSING TO LEFT AND RIGHT FACE AFFECTED AREAS, CHANGED PRN IF SOILING
--- NOTE | 2020-03-09 15:24 | NUR ---
DIALYSIS NURSE AT PT BEDSIDE. STARTING HEMODIALYSIS
--- NOTE | 2020-03-09 16:00 | NUR ---
PT RECEIVING DIALYSIS AT THIS TIME NOT IN ANY DISTRESS. WILL CONTINUE TO MONITOR.
--- NOTE | 2020-03-09 17:00 | NUR ---
BLOOD GLUCOSE 174. DID NOT PROVIDE INSULIN COVERAGE PER DOCTOR DUE TO CURRENT DIALYSIS TREATMENT.
--- NOTE | 2020-03-09 17:39 | NUR ---
PT STILL ON DIALYSIS NOT IN ANY DISTRESS AT THIS TIME. PEEP TITRATED TO 8cmH2O SPO2 95%. VENT ALARMS ON AND FUNCTIONING. ETT SECURE WITH A PATENT AIRWAY.
--- NOTE | 2020-03-09 17:49 | NUR ---
PT CURRENTLY GOING HEMODIALYSIS TREATMENT. PT STABLE AT THIS TIME. PT STILL USING BAIRHUGGER. TEMPERATURE AT THIS TIME IS 97.6. TUBE FEEDING IS STILL OFF. BED IS LOCKED. WILL CONTINUE TO MONITOR.
--- NOTE | 2020-03-09 20:05 | NUR ---
ETT TO VENT, ACPC FI02 50%, PINSP 18, RATE 20, PEEP 8. LUNG SOUNDS DIMINISHED, SATURATIONS 92%. PT SEDATED, RASS -2, WITHDRAWS TO LIGHT TOUCH, EYES ARE OPEN, NOT ABLE TO TRACK. PERRL 3MM, BRISK. PROPOFOL 40MCG/KG/MIN (14.24ML/HR), DRY WEIGHT USED 59.8. RT FA, 20G, FLUSHED AND PATENT, SALINE LOCKED. RIGHT UPPER CHEST, TUNNELED CATH. RIGHT FEMORAL FOR HD IN PLACE. PATENT, NO SYMPTOMS. S1S2, SR ON MONITOR. BP STABLE. LEFT AC 20G, FLUSHED PATENT NO SYMPTOMS. OGT IN PLACE. FEEDING HELD AT THIS TIME. ABDOMEN LARGE, SOFT AND NONTENDER, BOWEL SOUNDS HYPOACTIVE. PERRY IN PLACE, MINIMAL OUTPUT, CLOUDY SAW/YELLOW URINE. SKIN NOT INTACT, SKIN TEAR TO BUTTOCKS, BLISTERS TO BOTH EARS, PRESSURE INJURIES TO RIGHT AND LEFT CHEEKS, DRESSINGS IN PLACE WITH ETT SECUREMENT, SMALL PRESSURE INJURY TO LEFT NECK/FACE-RADHA, BILATERAL UPPER EXTREMITIES HAS GENERALIZED EDEMA.RECTAL TEMP 98.5. BEAR HUGGER IN PLACE. SOFT WRIST RESTRAINTS IN PLACE, SKIN INTACT.FLACC 0 HOB 30 DEGREES, SIDE RAILS UP, THERAPEUTIC MATTRESS IN PLACE, DROPLET PRECAUTIONS. WILL CONTINUE TO MONITOR.
--- NOTE | 2020-03-09 20:15 | NUR ---
RECEIVED PATIENT ETT TO MECHANICAL VENTILATOR AT DOCUMENTED SETTINGS. VENT CHECK DONE. VENT PLUGGED INTO RED OUTLET WITH WHEELS LOCKED. VENT ALARMS ON AND AUDIBLE. BVM AT [facility]. SCHEDULED BREATHING TREATMENT ADMINISTERED. TOLERATED TX WELL WITHOUT ADVERSE SIDE EFFECTS. AIRWAY SECURE AND PATENT. SUCTIONED SMALL AMOUNT OF THICK, BROWN SECRETIONS. ORAL VAP CARE DONE. NO ACUTE RESPIRATORY DISTRESS NOTED. WILL CONTINUE TO MONITOR.
[2020-03-09] MEDS: ATORVASTATIN 20 MG TAB PO SCH (20:39)
[2020-03-09] MEDS: INSULIN LISPRO SLIDING SCALE 100 UNITS/ML VIAL SUBQ PRN (23:26)
[2020-03-10] VITALS (103 sets, daily range): BP systolic 142–189; BP diastolic 59–93
--- NOTE | 2020-03-10 00:08 | NUR ---
AIR CHECK COMPLETE, CONFIRMED PLACEMENT. RESIDUALS MINIMAL, 20ML. STILL BLACK/BROWN. CONTINUE TO HOLD OFF FEEDING. MINIMAL BLEEDING AT MOUTH. PROVIDED ORAL CARE. TURNED AND REPOSITIONED PATIENT. TOLERATED WELL. TEMPERATURE WITHIN RANGE. BEAR HUGGER AT BEDSIDE IF NEEDED. RECTAL THERMOMETER STILL IN PLACE. 98.5.
[2020-03-10] MEDS: BLOOD GLUCOSE MONITORING 1 DEV DEV FS SCH ×7 (00:50→23:20)
[2020-03-10] MEDS: INSULIN LISPRO SLIDING SCALE 100 UNITS/ML VIAL SUBQ PRN ×3 (00:50→21:30)
[2020-03-10] MEDS: Z-GUARD PASTE TP SCH ×2 (01:41→12:27)
[2020-03-10] MEDS: ALBUTEROL HFA MDI 90 MCG/ACTUATION 8 GM INH SCH ×4 (01:42→19:00)
--- NOTE | 2020-03-10 02:10 | NUR ---
RT AT BEDSIDE TO ASSIST WITH ASSESSING AND CLEANING AND REPLACING ANCHOR FAST. BILATERAL CHEEKS HAVE OPEN PRESSURE WOUNDS. CLEANED SKIN AND REPLACED DRESSING WITH VERSATEL, DUODERM AND OPTIFOAM DRESSINGS. SECURED ANCHOR FAST AND OGT. PATIENT TOLERATED FAIRLY. OPENS EYES TO PAIN. RASS -2. CLEANED AND PROVIDED SPONGE BATH, AND PERRY CARE. TURNED PATIENT TO PRONE POSITION. SECURED RESTRAINTS AND RECTAL THERMOMETER. REVERSE [place]. BED LOCKED AND IN LOWEST POSITION, FI02 50%, RATE 20 PEEP 8. SATURATIONS 94%. WILL CONTINUE TO MONITOR.
--- NOTE | 2020-03-10 02:17 | NUR ---
CLARIFIED WITH , NO NEED FOR FLUCANAZOLE AFTER DIALYSIS.
--- NOTE | 2020-03-10 02:30 | NUR ---
FACE CLEANED. ANCHORFAST REPLACED. PATIENT REPOSITIONED TO PRONE WITHOUT INCIDENT. WILL CONTINUE TO MONITOR.
--- NOTE | 2020-03-10 04:10 | NUR ---
SUGAR CHECK, 147, NO COVERAGE NEEDED. RECTAL TEMP WITHIN RANGE, 98.7. ASSESSED SKIN AT RESTRAINTS, NO INJURIES NOTED. SKIN IS EDEMATOUS. INTACT. SAFETY MEASURES IN PLACE. PATIENTS BLOOD PRESSURE HAS BEEN ELEVATED. FACIAL GRIMACING WITH TOUCH. WILL PROVIDE PAIN MEDS. PATIENT WITHDRAWS TO ORAL CARE.
[2020-03-10] MEDS: MORPHINE SULFATE 2 MG/ML SYR IVP PRN (04:50)
--- NOTE | 2020-03-10 05:00 | NUR ---
PROVIDED MORPHINE IVP, PATIENT APPEARS MORE RESTED. NO GRIMACING. ONLY WITH LIGHT TOUCH. BLOOD PRESSURE STILL ELEVATED BUT IMPROVING, SBP IN 170's. REPLACED PROPOFOL TUBING, RASS -2. SKIN AND CIRCULATION WITHIN RANGE AT RESTRAINT SITES. WILL CONTINUE TO MONITOR.
[2020-03-10] MEDS: PROPOFOL 1000 MG/100 ML PREMIX 100 ML IV PRN ×4 (05:10→23:15)
[2020-03-10] MEDS: METOCLOPRAMIDE 10 MG/2 ML INJ VIAL IVP SCH ×3 (05:24→20:40)
[2020-03-10] MEDS: PIPERACILLIN/TAZOBACTAM 2.25 GM in DEXTROSE 5% 50 ML IV SCH ×3 (05:24→21:08)
[2020-03-10] MEDS: ALUMINUM HYDROXIDE 64 MG/ML BOTTLE PO SCH ×3 (05:24→20:42)
[2020-03-10] MEDS: methylPREDNISolone SS 40 MG/ML VIAL IVP SCH ×4 (06:20→23:22)
[2020-03-10 06:30] LABS: CHOL/HDL RATIO 4.9 (1-4.5)
[2020-03-10 06:36] LABS: ALBUMIN 1.7 g/dL (3.4-5.0); ANION GAP 14.8 (8-16); CARBON DIOXIDE 27.3 mmol/L (21-32); CREATININE 3.4 mg/dL (0.6-1.3); MAGNESIUM 1.7 mg/dL (1.8-2.4); PHOSPHORUS 5.6 mg/dL (2.5-4.9); POTASSIUM 3.1 mmol/L (3.5-5.1); TOTAL BILIRUBIN 0.6 mg/dL (0.0-1.0)
--- NOTE | 2020-03-10 06:50 | NUR ---
RECEIVED PT FROM AIR DEFENSE SPECIALIST , PT IS ON DOCUMENTED SETTINGS. MDI TX GIVEN INLINE AND TOLERATED WELL. PT IS PRONE AND SHOWS NO SIGN OF DISTRESS AT THIS TIME. VENT IS PLUGGED INTO RED OUTLET, ALARMS ARE ON AND FUNCTIONING, AMBU BAG AT BEDSIDE. WILL CONTINUE TO MONITOR.
--- NOTE | 2020-03-10 06:50 | NUR ---
ETT IS SECURED AND INTACT.
[2020-03-10 07:08] LABS: HEMATOCRIT 28.5 % (36-48); HEMOGLOBIN 9.5 g/dL (12.0-16.0); MEAN CORPUSCULAR HEMOGLOBIN 28 pg (27-31); MEAN CORPUSCULAR HGB CONC 33 g/dL (33-37); MEAN CORPUSCULAR VOLUME 84.6 fL (80-94); PLATELET COUNT (AUTO) 342 K/uL (140-450); RED BLOOD CELL COUNT(AUTO) 3.36 MIL/uL (4.20-5.40); RED CELL DISTRIBUTION WIDTH 16.5 % (11.6-13.7); WHITE BLOOD COUNT (AUTO) 11.5 K/uL (4.8-10.8)
[2020-03-10 07:09] LABS: LYMPHOCYTES % (MANUAL) 5 % (20-46); MONOCYTES % (MANUAL) 4 % (5-12)
--- NOTE | 2020-03-10 07:45 | NUR ---
REPORT RECEIVED FROM DAKOTA GIRALDO, PT IN PRONE POSITION, ON PROPOFOL AT 40MCG/KG/MIN. FOR SEDATION RASS -2, RESP EVEN UNLABORED WITH ETT TO VENT, ACPC FIO2 50%, PEEP 8, RR 20, EQUAL CHEST RISE AND FALL, VITALS STABLE ON MONITOR, OGT IN PLACE, R FEM DOUBLE LUMEN CAHT, TUNNEL CATH TO RIGHT UPPER CHEST WALL, PIV 20G TO LEFT AC AND RIGHT FA, SITES WNL, PERRY IN PLACE, MINIMAL DARK URINE NOTED IN TUBING AND BAG, RESTRAINTS REMOVED, (RASS -2), NO S/S INJURIES NOTED ON BILAT WRISTS, POC REVIEWED, ALL SAFETY MEASURES IN PLACE, WILL CONTINUE TO MONITOR. DRY WT 59.8KG,
[2020-03-10] MEDS: PANTOPRAZOLE 40 MG INJ VIAL IVP SCH ×2 (09:52→20:37)
[2020-03-10] MEDS: ASCORBIC ACID 500 MG/5 ML ORASYR NG SCH (09:52)
[2020-03-10] MEDS: VIT-B COMP/VIT-C/FOLIC ACID 1 TAB PO SCH (09:53)
[2020-03-10] MEDS: CHOLECALCIFEROL 1,000 IU TAB NG SCH (09:54)
[2020-03-10] MEDS: METOPROLOL 25 MG TAB PO SCH ×2 (09:54→20:39)
[2020-03-10] MEDS: ZINC SULF 220 MG CAP PO SCH (09:54)
[2020-03-10] MEDS: LOSARTAN 50 MG TAB PO SCH ×2 (09:55→17:23)
--- NOTE | 2020-03-10 12:30 | NUR ---
TITRATED PT FIO2 TO 40% AND PEEP TO +7. PT TOLERATING WELL SPO2 94% HR 72
--- NOTE | 2020-03-10 12:50 | NUR ---
BEDSDIE GLUCOSE 144, NO INSULIN NEEDED PER SLIDING SCALE, O2SAT DECREASED TO 83-84%, FIO2 INCREASED TO 45%, WILL NOTIFY RT LEON
[2020-03-10] MEDS ORDERED: MAG SULF 2000 MG/WATER PREMIX 50 ML IV SCH (15:00)
--- NOTE | 2020-03-10 15:00 | NUR ---
PLACED PT IN SUPINE POSITION APPROX AT 1500. SX BLOOD TINGED SECRETIONS THROUGH GUTIERREZ AND ORAL.
--- NOTE | 2020-03-10 15:05 | NUR ---
PT TURNED BACK TO SUPINE WITH RT AT HEAD OF BED TO KEEP AIRWAY SECURE, NO ADVERSE EVENT, PT BUDDY WELL, VITALS WNL, BLOODY SECREATIONS NOTED FROM MOUTH, WOOZING OF GUMS NOTED, OGT RESIDUAL <10, FEEDING INCREASED TO 20ML/HR.
--- NOTE | 2020-03-10 16:32 | NUR ---
DR FRAIRE CALLED TO INFORM OF INCREASED BP 168/68. GIVE TONIGHT'S DOSE OF [place] 50MG NOW.
--- NOTE | 2020-03-10 17:20 | NUR ---
PT REMAINS ON DOCUMENTED SETTINGS. VENT CHECK DONE. ETT IS SECURED AND INTACT. PT SHOWS NO SIGN OF DISTRESS AT THIS TIME. VENT IS PLUGGED INTO RED OUTLET, ALARMS ARE ON AND FUNCTIONING. AMBU BAG AT BEDSIDE.
--- NOTE | 2020-03-10 17:50 | NUR ---
RE-POSIIONTED, ORAL CARE DONE, PT CONTINUES WITH SMALL AMT OF BLOODY SECRETION FROM MOUTH, LEFT YEAR WOUND PHOTO TAKEN, CLEANED WITH NS, COVERED WITH VERSATEL, OGT RESIDUAL <15, FEEDING INCREASED TO 30ML/HR.
[2020-03-10] MEDS ORDERED: KCL 20 MEQ/WATER INJ PREMIX 200 ML IV SCH (18:00)
--- NOTE | 2020-03-10 19:35 | NUR ---
RECEIVED REPORT FROM AM SHIFT. PATIENT SEEN AND ASSESSED. PATIENT IS INTUBATED WITH ETT SIZE 7.5 AND SECURED WITH ANCHOR-FAST AT 21CM. AUSCULTATION REVEALS BILATERAL CLEAR BREATH SOUNDS. PATIENT ON VENT SETTINGS AC/PC 18, 20,+7, 45% WITH SPO2 OF 95%. VENT PLUGGED IN RED OUTLET, HOB > 30 DEGREES, AMBU BAG AT BEDSIDE, AND ALARMS SET AND AUDIBLE. PATIENT IS IN NO APPARENT RESPIRATORY DISTRESS AT THIS TIME. MDI TX GIVEN ORDERED AND PATIENT TOLERATED WELL WITH NO ADVERSE REACTION. SUCTIONED SMALL AMOUNT OF PINK TINGE SECRETIONS FROM ETT AND MODERATE BLOODY ORAL SECRETIONS. AIRWAY IS PATIENT. WILL CONTINUE TO MONITOR PATIENT.
--- NOTE | 2020-03-10 20:00 | NUR ---
PT TO ETT TO VENT- A/C PC FIO2 45%, PINSP 20, RATE 20, PEEP 7. NO SIGNS OF DISTRESS OBSERVED. PERRY CATHETER IN PLACE DRAINING TO GRAVITY. SIDE RAILS UP, BED IN LOWEST POSITION. LUNGS ARE DIMINISHED IN ALL QUADRANTS UPON AUSCULTATION. BOWEL SOUNDS HYPOACTIVE, ABDOMEN SOFT AND FLAT. SKIN NON-INTACT. PRESSURE ULCERS OBSERVED ON THE SACRUM, BILATERAL CHEEKS AND EARS. DRESSINGS CLEAN DRY AND INTACT. OGT INTACT AND PATENT RUNNING @ 40ML/HR NEPRO AND 100ML FREE WATER FLUSH EVERY 6 HOURS. 20 ML RESIDUALS. ON PROPOFOL AT 40MCG/KG/MIN(14.34ML) DRY WEIGHT OF 59.8KG. RASS -2, WITHDRAWS TO PAIN. ACCESSES ON THE RIGHT CHEST TUNNELED CATH FOR DIALYSIS, RIGHT FEMORAL WITH AGUILAR, 20G RIGHT FOREARM AND 20G LEFT AC, ALL ASYMPTOMATIC AND PATENT. WILL CONTINUE TO MONITOR PT.
[2020-03-10] MEDS: ATORVASTATIN 20 MG TAB PO SCH (20:39)
--- NOTE | 2020-03-10 22:00 | NUR ---
PT IN BED WITH EYES CLOSED. SEDATED RASS -3. NO DISTRESS OBSERVED. WILL CONTINUE TO MONITOR. Addendum: 03/11/20 at 0653 by Franki Taylor RN FELICITA -2 NOT -3
[2020-03-11] VITALS (65 sets, daily range): BP systolic 135–182; BP diastolic 67–87
[2020-03-11] MEDS: INSULIN LISPRO SLIDING SCALE 100 UNITS/ML VIAL SUBQ PRN ×7 (00:27→23:49)
[2020-03-11] MEDS: Z-GUARD PASTE TP SCH ×2 (01:00→13:12)
[2020-03-11] MEDS: ALBUTEROL HFA MDI 90 MCG/ACTUATION 8 GM INH SCH ×4 (01:54→19:52)
[2020-03-11] MEDS: BLOOD GLUCOSE MONITORING 1 DEV DEV FS SCH ×6 (03:19→23:48)
--- NOTE | 2020-03-11 04:00 | NUR ---
PT HAD A BOWEL MOVEMENT. FEEDING HELD FOR NOW DUE TO INCREASE IN RESIDUALS WITH APPROXIMATELY MORE THAN 100 ML. PT PLACED IN PRONE POSITION AT THIS TIME. WILL CONTINUE TO MONITOR.
--- NOTE | 2020-03-11 04:21 | NUR ---
AT APPROXIMATELY 0400, PATIENT WAS SUCCESSFULLY PLACED IN PRONE POSITION. AIRWAY IS PATENT. ETT IS SECURED AND INTACT. PATIENT IN NO RESPIRATORY DISTRESS AT THIS TIME. SPO2 OF 89%. RNs AT BEDSIDE. WILL CONTINUE TO MONITOR PATIENT.
[2020-03-11] MEDS: PIPERACILLIN/TAZOBACTAM 2.25 GM in DEXTROSE 5% 50 ML IV SCH ×3 (04:26→20:19)
[2020-03-11] MEDS: METOCLOPRAMIDE 10 MG/2 ML INJ VIAL IVP SCH ×3 (04:29→20:19)
[2020-03-11] MEDS: ALUMINUM HYDROXIDE 64 MG/ML BOTTLE PO SCH ×3 (04:29→20:20)
--- NOTE | 2020-03-11 05:00 | NUR ---
MORNING CARE DONE. SPONGE BATH AND ORAL CARE. NO DISTRESS OBSERVED AT THIS TIME.
[2020-03-11] MEDS: methylPREDNISolone SS 40 MG/ML VIAL IVP SCH ×4 (05:32→23:02)
--- NOTE | 2020-03-11 05:59 | NUR ---
PATIENT STILL REMAINS ON VENT SUPPORT. AIRWAY IS PATENT. ETT IS SECURED AND INTACT. PATIENT IS STILL IN PRONE POSITION. FiO2 WAS INCREASED TO 50% AFTER PRONING. SPO2 90%. PATIENT IN NO DISTRESS AT THIS TIME. WILL CONTINUE TO MONITOR.
[2020-03-11 06:15] LABS: ALBUMIN 1.7 g/dL (3.4-5.0); ANION GAP 21.7 (8-16); CARBON DIOXIDE 21.8 mmol/L (21-32); MAGNESIUM 2.5 mg/dL (1.8-2.4); PHOSPHORUS 7.2 mg/dL (2.5-4.9); POTASSIUM 4.5 mmol/L (3.5-5.1); TOTAL BILIRUBIN 0.7 mg/dL (0.0-1.0)
[2020-03-11 06:20] LABS: CREATININE 4.7 mg/dL (0.6-1.3)
[2020-03-11] MEDS: PROPOFOL 1000 MG/100 ML PREMIX 100 ML IV PRN (06:28)
[2020-03-11 06:54] LABS: HEMATOCRIT 28.7 % (36-48); HEMOGLOBIN 9.6 g/dL (12.0-16.0); MEAN CORPUSCULAR HEMOGLOBIN 29 pg (27-31); MEAN CORPUSCULAR HGB CONC 33 g/dL (33-37); MEAN CORPUSCULAR VOLUME 85.3 fL (80-94); PLATELET COUNT (AUTO) 319 K/uL (140-450); RED BLOOD CELL COUNT(AUTO) 3.37 MIL/uL (4.20-5.40); RED CELL DISTRIBUTION WIDTH 16.5 % (11.6-13.7); WHITE BLOOD COUNT (AUTO) 13.8 K/uL (4.8-10.8)
--- NOTE | 2020-03-11 06:55 | NUR ---
RECEIVED PT FROM SUPERVISOR SOAKERS. PT IS ON DOCUMENTED SETTINGS. ETT IS SECURED AND INTACT. HME CHANGED. TX GIVEN INLINE. PT SHOWS NO SIGN OF DISTRESS AT THIS TIME. VENT IS PLUGGED INTO RED OUTLET, ALARMS ARE ON AND FUNCTIONING, AMBU BAG AT BEDSIDE.
--- NOTE | 2020-03-11 07:30 | NUR ---
REPORT RECEIVED FROM NIGHT RN, PT IN PRONE POSITION, ON PROPOFOL AT 40MCG/KG/MIN. FOR SEDATION RASS -2, RESP EVEN UNLABORED WITH ETT TO VENT, ACPC FIO2 50%, PEEP 7, RR 18, EQUAL CHEST RISE AND FALL, VITALS STABLE ON MONITOR HR 85, BP 161/79, RR 20, O2SAT 92%, TEMP 98.6 RECTAL, OGT IN PLACE FEEDING ON HOLD FOR INCREASED RESIDUAL >100 PER TOURISM RADIO PRESENTER, WILL RE-CHECK, R FEM DOUBLE LUMEN CAHT, TUNNEL CATH TO RIGHT UPPER CHEST WALL, PIV 20G TO LEFT AC AND RIGHT FA, SITES WNL, PERRY IN PLACE, MINIMAL DARK URINE NOTED IN TUBING AND BAG, RESTRAINTS OFF, (RASS -2), NO S/S INJURIES NOTED ON BILAT WRISTS, POC REVIEWED, PLAN FOR DIALYSIS TODAY, ALL SAFETY MEASURES IN PLACE, WILL CONTINUE TO MONITOR. DRY WT 59.8KG,
--- NOTE | 2020-03-11 07:44 | NUR ---
DR DIXON AND MEDICAL TEAM AT BEDSIDE
--- NOTE | 2020-03-11 08:45 | NUR ---
DR SWANSON AT BEDSIDE, SEDATION VACATION AND SBT TODAY 07/27 C-PAP TRIAL WHEN SUPINE, NO LONGER NEED TO PRONE POSITION DAILY PER DR SWANSON.
[2020-03-11] MEDS: CHOLECALCIFEROL 1,000 IU TAB NG SCH (09:02)
[2020-03-11] MEDS: ASCORBIC ACID 500 MG/5 ML ORASYR NG SCH (09:02)
[2020-03-11] MEDS: LOSARTAN 50 MG TAB PO SCH ×2 (09:03→20:21)
[2020-03-11] MEDS: VIT-B COMP/VIT-C/FOLIC ACID 1 TAB PO SCH (09:03)
[2020-03-11] MEDS: PANTOPRAZOLE 40 MG INJ VIAL IVP SCH ×2 (09:03→20:19)
[2020-03-11] MEDS: METOPROLOL 25 MG TAB PO SCH ×2 (09:04→20:20)
[2020-03-11] MEDS: ZINC SULF 220 MG CAP PO SCH (09:04)
[2020-03-11 10:28] LABS: LYMPHOCYTES % (MANUAL) 7 % (20-46); MONOCYTES % (MANUAL) 8 % (5-12)
--- NOTE | 2020-03-11 11:25 | NUR ---
PROPOFOL STOPPED AT 1115, PT TURNED TO SUPINE POSITION WITH RT AT HEAD OF BED TO KEEP AIRWAY SECURE, PT BUDDY WELL, LOOSE BM X1, PERICARE DONE PERRY CARE DONE, PT'S VITALS STABLE.
--- NOTE | 2020-03-11 11:30 | NUR ---
PLACED PT IN SUPINE POSITION WELL CPAP MODE 10/5 50% ON VENT. PT IS TOLERATING WELL WITH NO DISTRESS AT THIS TIME. WILL CONTINUE TO MONITOR.
--- NOTE | 2020-03-11 13:50 | NUR ---
PT WITH EYES OPEN, FOLLOWS COMMANDS (BLINKS EYES WITH COMMANDS), REMAINS ON C-PAP WITH ETT SINCE 113, RESP EVEN UNLABORED, SOFT DARK BROWN BM, GLORY CARE DONE, POSIITON CHANGED.
--- NOTE | 2020-03-11 14:10 | NUR ---
PLACED PT BACK ON AC/PC DUE TO DESAT DURING DIALYSIS. PT SPO2 CURRENTLY READING 90-91%. NO SIGN OF DISTRESS AT THIS TIME.
--- NOTE | 2020-03-11 14:10 | NUR ---
DIALYSIS NURSE AT BEDSIDE.
--- NOTE | 2020-03-11 17:05 | NUR ---
PT REMAINS ON DOCUMENTED SETTINGS. VENT CHECK DONE. ETT IS SECURED AND INTACT. SHOWS NO SIGN OF DISTRESS AT THIS TIME. VENT IS PLUGGED INTO RED OUTLET, ALARMS ARE ON AND FUNCTIONING, AMBU BAG AT BEDSIDE.
--- NOTE | 2020-03-11 17:40 | NUR ---
DIALYSIS DONE, 2500ML TAKEN OUT PER DIALYSIS NURSE.
--- NOTE | 2020-03-11 18:20 | NUR ---
PT WITH LOOSE BM LARGE, PERICARE DONE, PERRY CARE DONE, PT REPOSITIONED, RIGHT FEM DRESSING CHANGED, PT WITH INCREASED BP 175/80, INCREASED RR 28-30, TEARS FROM EYES, DR BETANCOURT CONSULTED, WILL GIVE PRN MORPHINE FOR POSSIBLE PAIN.
[2020-03-11] MEDS: MORPHINE SULFATE 2 MG/ML SYR IVP PRN (18:39)
--- NOTE | 2020-03-11 19:25 | NUR ---
REPORT GIVEN TO MINING PLANT OPERATOR NURSE.
--- NOTE | 2020-03-11 19:30 | NUR ---
PT ETT TO VENT- A/C PC FIO2 50%, PINSP 20, RATE 18, PEEP 7. RESPIRATION EVEN AND UNLABORED. EQUAL CHEST RISE AND FALL. ORAL MUCOSA PINK AND MOIST. NO SIGNS OF DISTRESS OBSERVED. PT ON SEDATION VACATION. OPENS EYES TO VOICE AND TACTILE STIMULI. PERRY CATHETER IN PLACE DRAINING TO GRAVITY. SIDE RAILS UP, BED IN THE LOWEST POSITION. LUNGS ARE DIMINISHED IN ALL QUADRANTS UPON AUSCULTATION. BOWEL SOUNDS HYPOACTIVE, ABDOMEN SOFT AND FLAT. PT HAS ACCESS TO THE RIGHT CHEST TUNNELED CATH FOR DIALYSIS, RIGHT FEMORAL WITH AGUILAR, 20G RIGHT FOREARM AND 20G LEFT AC, ALL ASYMPTOMATIC AND PATENT. SKIN NON-INTACT. PRESSURE ULCERS OBSERVED ON THE SACRUM, BILATERAL CHEEKS AND EARS. DRESSINGS CLEAN DRY AND INTACT. PULSES PALPABLE. OGT INTACT AND PATENT RUNNING @ 40ML/HR(GOAL RATE) NEPRO AND 100ML FREE WATER FLUSH EVERY 6 HOURS. WILL CONTINUE TO MONITOR PT.
--- NOTE | 2020-03-11 19:45 | NUR ---
RECEIVED REPORT FROM AM SHIFT. PATIENT SEEN AND ASSESSED. PATIENT IS INTUBATED WITH ETT SIZE 7.5 AND SECURED WITH ANCHOR-FAST AT 21CM. AUSCULTATION REVEALS RALES BILATERAL BREATH SOUNDS. PATIENT ON VENT SETTINGS AC/PC 18, 18, +7, 50% WITH SPO2 OF 96%. VENT PLUGGED IN RED OUTLET, HOB > 30 DEGREES, AMBU BAG AT BEDSIDE, AND ALARMS SET AND AUDIBLE. PATIENT IS IN NO APPARENT RESPIRATORY DISTRESS AT THIS TIME. MDI TX GIVEN ORDERED AND PATIENT TOLERATED WELL WITH NO ADVERSE REACTION. SUCTIONED SCANT AMOUNT OF PINK TINGE SECRETIONS FROM ETT AND SMALL BLOODY ORAL SECRETIONS. AIRWAY IS PATIENT. WILL CONTINUE TO MONITOR PATIENT.
[2020-03-11] MEDS: ATORVASTATIN 20 MG TAB PO SCH (20:20)
--- NOTE | 2020-03-11 20:30 | NUR ---
GLORY CARE, ORAL CARE DONE WITH SMALL AMOUNT OF BLOOD FROM THE MOUTH. MEDICATION GIVEN ORDERED. NO RESPIRATORY DISTRESS OBSERVED. WILL CONTINUE TO MONITOR PT.
--- NOTE | 2020-03-11 23:51 | NUR ---
PT IS AWAKE. ORAL CARE DONE. NO SIGNS OF DISTRESS OBSERVED. WILL CONTINUE TO MONITOR.
[2020-03-12] VITALS (22 sets, daily range): BP systolic 129–179; BP diastolic 66–87
[2020-03-12] MEDS: ALBUTEROL HFA MDI 90 MCG/ACTUATION 8 GM INH SCH ×2 (01:38→19:30)
[2020-03-12] MEDS: Z-GUARD PASTE TP SCH ×2 (01:40→13:00)
--- NOTE | 2020-03-12 03:05 | NUR ---
NOTICE HIGH EXHALE VITAL VOLUMES (600-700) ON PATIENT'S VENT SETTINGS. TITRATED INSPIRATORY PRESSURE TO 15 cmH20. EXHALE VITAL VOLUME (400-500) WHICH IS ABOUT 7-8 ml/kg OF PATIENT'S IBW. SPO2 93%. PATIENT TOLERATING WELL. WILL CONTINUE TO MONITOR.
[2020-03-12] MEDS: BLOOD GLUCOSE MONITORING 1 DEV DEV FS SCH ×5 (03:27→20:00)
[2020-03-12] MEDS: INSULIN LISPRO SLIDING SCALE 100 UNITS/ML VIAL SUBQ PRN ×5 (03:31→23:30)
--- NOTE | 2020-03-12 03:37 | NUR ---
PT HAD A BOWEL MOVEMENT (DARK BROWN STOOL). PT CLEANED, GLORY CARE, PERRY CARE , ORAL CARE DONE. RIGHT FEMORAL DRESSING CHANGED. PT AWAKENS TO VOICE AND TACTILE STIMULI. REPOSITIONED. NO DISTRESS OBSERVED AT THIS TIME. WILL MONITOR PT.
[2020-03-12] MEDS: PIPERACILLIN/TAZOBACTAM 2.25 GM in DEXTROSE 5% 50 ML IV SCH ×3 (04:01→20:09)
[2020-03-12] MEDS: METOCLOPRAMIDE 10 MG/2 ML INJ VIAL IVP SCH ×3 (04:32→20:17)
[2020-03-12] MEDS: ALUMINUM HYDROXIDE 64 MG/ML BOTTLE PO SCH ×3 (04:32→20:17)
[2020-03-12] MEDS: methylPREDNISolone SS 40 MG/ML VIAL IVP SCH ×4 (05:01→20:21)
[2020-03-12] MEDS: MORPHINE SULFATE 2 MG/ML SYR IVP PRN ×3 (05:11→23:15)
--- NOTE | 2020-03-12 05:11 | NUR ---
MORPHINE GIVEN FOR INCREASE OF VITAL SIGNS. PT TOLERATED WELL. PT ALSO HAD A BM DARK BLACK STOOL. PT CHUCKS CHANGED. OPTIFOAM CHANGED.
--- NOTE | 2020-03-12 06:11 | NUR ---
PATIENT STILL REMAINS ON VENT SUPPORT. PEAK INSPIRATORY PRESSURE WAS DECREASED TO 15 cmH20 DUE TO INCREASE IN EXHALE VITAL VOLUME DURING NOC SHIFT. AIRWAY IS PATENT. ETT IS SECURED AND INTACT. SPO2 92%. PATIENT IN NO DISTRESS AT THIS TIME. WILL CONTINUE TO MONITOR.
[2020-03-12 06:12] LABS: HEMATOCRIT 29.5 % (36-48); HEMOGLOBIN 9.7 g/dL (12.0-16.0); MEAN CORPUSCULAR HEMOGLOBIN 28 pg (27-31); MEAN CORPUSCULAR HGB CONC 33 g/dL (33-37); MEAN CORPUSCULAR VOLUME 85.1 fL (80-94); PLATELET COUNT (AUTO) 361 K/uL (140-450); RED BLOOD CELL COUNT(AUTO) 3.47 MIL/uL (4.20-5.40); RED CELL DISTRIBUTION WIDTH 16.8 % (11.6-13.7); WHITE BLOOD COUNT (AUTO) 20.5 K/uL (4.8-10.8)
--- NOTE | 2020-03-12 07:12 | NUR ---
REPORT GIVEN TO AM NURSE FOR CONTINUITY OF CARE. ENDORSED.
[2020-03-12 07:14] LABS: ALBUMIN 1.6 g/dL (3.4-5.0); ANION GAP 17.5 (8-16); CARBON DIOXIDE 23.8 mmol/L (21-32); CREATININE 3.1 mg/dL (0.6-1.3); MAGNESIUM 1.9 mg/dL (1.8-2.4); PHOSPHORUS 4.1 mg/dL (2.5-4.9); POTASSIUM 3.3 mmol/L (3.5-5.1); TOTAL BILIRUBIN 0.6 mg/dL (0.0-1.0)
--- NOTE | 2020-03-12 07:18 | NUR ---
REPORT RECEIVED FROM NIGHT RN, PT AWAKE WITH EYES OPEN, RESP EVEN UNLABORED WITH ETT TO VENT, ACPC FIO2 50%, PEEP 7, RR 18, EQUAL CHEST RISE AND FALL, VITALS STABLE ON MONITOR HR 98, BP 167/77, RR 22, O2SAT 95%, TEMP 99.3 RECTAL, OGT IN PLACE FEEDING AT 40ML/HR, FWF 100/6HRS, R FEM DOUBLE LUMEN CAHT, TUNNEL CATH TO RIGHT UPPER CHEST WALL, PIV 20G TO LEFT AC AND RIGHT FA, SITES WNL, PERRY IN PLACE, MINIMAL DARK URINE NOTED IN TUBING AND BAG, ON RESTRAINTS, NO S/S INJURIES NOTED ON BILAT WRISTS, POC REVIEWED, PLAN FOR DIALYSIS TODAY, ALL SAFETY MEASURES IN PLACE, WILL CONTINUE TO MONITOR. DRY WT 59.8KG.
--- NOTE | 2020-03-12 07:41 | NUR ---
PT RECEIVED ON PC 15 F 18 PEEP 7 50% FIO2 PT WAS GIVEN MDI VENT PLUGGED INTO RED OUTLET AMBU BAG AT BEDSIDE
[2020-03-12 07:51] LABS: LYMPHOCYTES % (MANUAL) 2 % (20-46); MONOCYTES % (MANUAL) 5 % (5-12)
[2020-03-12] MEDS ORDERED: KCL 20 MEQ/WATER INJ PREMIX 100 ML IV SCH (09:30)
[2020-03-12] MEDS: METOPROLOL 25 MG TAB PO SCH ×2 (09:43→20:15)
[2020-03-12] MEDS: ASCORBIC ACID 500 MG/5 ML ORASYR NG SCH (09:43)
[2020-03-12] MEDS: VIT-B COMP/VIT-C/FOLIC ACID 1 TAB PO SCH (09:44)
[2020-03-12] MEDS: CHOLECALCIFEROL 1,000 IU TAB NG SCH (09:44)
[2020-03-12] MEDS: LOSARTAN 50 MG TAB PO SCH ×2 (09:44→20:15)
[2020-03-12] MEDS: ZINC SULF 220 MG CAP PO SCH (09:44)
[2020-03-12] MEDS: PANTOPRAZOLE 40 MG INJ VIAL IVP SCH ×2 (09:47→20:16)
--- NOTE | 2020-03-12 11:05 | NUR ---
DR. FARHAD SWANSON ROUNDING IN ICU [facility] SOLITARIO SBT TRIALS X 1 HOUR PEEP 5 PS 10 FOLLOWED BY [facility] CAMEJO RCP NOTIFIED Addendum: 03/12/20 at 1141 by [place] RT REQUESTED NOTIFICATION OF [facility] SAMPLE REPORT
--- NOTE | 2020-03-12 11:05 | NUR ---
PER DR. FARHAD SWANSON PLACE BACK ON ORIGINAL SETTINGS AFTER SBT TRIALS
--- NOTE | 2020-03-12 11:35 | NUR ---
LARGE LOOSE STOOL X1, WOUND CARE DONE, RECTAL BAG APPLIED. PERRY CARE DONE, CHG WIPES DONE.
--- NOTE | 2020-03-12 12:39 | NUR ---
PT PLACED BACK ON PREV SETTINGS PT TOLERATED SBT (1 HOUR) WELL ABG DRAWN AND DR SWANSON WAS INFORMED AND I WILL ALSO NOTIFY LEVEL DESIGNER OF ABG RESULTS PH 7.38 CO2 33.6 HCO3 19.5 BE -4.9 PO2 70.3
--- NOTE | 2020-03-12 12:45 | NUR ---
[facility] RESULT CALLED TO DR SWANSON BY RT, DR SWANSON SUGGEST EXTUBATION, DR SWANSON INFORMED THAT PT IS NOT FULLY AWAKE EVEN WITHOUT SEDATION FOR 2 DAYS, CT HEAD ORDERED.
--- NOTE | 2020-03-12 15:23 | NUR ---
03/12/20 RD FOLLOW UP COMPLETED PLEASE REFER TO NUTRITION ASSESSMENT UNDER CARE ACTIVITY FOR ESTIMATED NUTRITIONAL NEEDS. 1. RECOMMEND NEPRO 1.8 AT 50 ML/HR X 24 HR WITH PROSOURCE BID AND DIANE BID -THIS WILL PROVIDE 1200 ML OF VOLUME, 2280 CALORIES, 127 GM OF PROTEIN, WHICH MEETS 100% OF ESTIMATED KCAL AND PROTEIN NEEDS 2. CONTINUE FREE WATER FLUSH OF 100 ML Q6H 3. CONTINUE NEPHRO-BRE, VITAMIN C, AND ZINC FOR WOUND HEALING 4. RD TO FOLLOW-UP 2-3 DAYS, HIGH RISK RITU OG, RONEY
--- NOTE | 2020-03-12 16:10 | NUR ---
CONSENT FOR PICC INSERTION RECIEVED FROM SARAHY DAUGHTER VIA TELEPHONE FUEL PILOT ENGINEER
--- NOTE | 2020-03-12 16:45 | NUR ---
PT TO CT SCAN OF HEAD, WITH RT PETER ON MONITOR Addendum: 03/21/20 at 0753 by Leslie Ochoa RN PT RESTLESS, INCREASED HR 102, RR 28, BP 168/82, PRN MORPHINE 4MG GIVEN IVP PRIOR TO GOING TO CT.
--- NOTE | 2020-03-12 17:45 | NUR ---
LARGE BM, PERICARE DONE, SACRAL DRESSING CHANGED, R FEMORAL CATH DC'D, CATH TIP INTACT, BLEEDING CONTROLLED, Addendum: 03/12/20 at 2046 by Leslie Ochoa RN BEDSIDE GLUCOSE 354, 10 UNITS GIVEN PER SLIDING SCALE
--- NOTE | 2020-03-12 19:45 | NUR ---
PT ETT TO VENT- A/C PC FIO2 50%, PINSP 15, RATE 18, PEEP 5. BOWEL SOUNDS HYPOACTIVE, ABDOMEN SOFT AND FLAT. PT HAS ACCESS TO THE RIGHT CHEST TUNNELED CATH FOR DIALYSIS, 20G RIGHT FOREARM AND 20G LEFT AC, ALL ASYMPTOMATIC AND PATENT. SKIN NON-INTACT. PRESSURE ULCERS OBSERVED ON THE SACRUM, BILATERAL CHEEKS AND EARS. DRESSINGS CLEAN DRY AND INTACT. PULSES PALPABLE. RESPIRATION EVEN AND UNLABORED. EQUAL CHEST RISE AND FALL. ORAL MUCOSA PINK AND MOIST. NO SIGNS OF DISTRESS OBSERVED. PT ON SEDATION VACATION. OPENS EYES TO VOICE AND TACTILE STIMULI. PERRY CATHETER IN PLACE DRAINING TO GRAVITY. SIDE RAILS UP, BED IN THE LOWEST POSITION. LUNGS ARE DIMINISHED IN ALL QUADRANTS UPON AUSCULTATION. OGT INTACT AND PATENT RUNNING @ 40ML/HR NEPRO AND 100ML FREE WATER FLUSH EVERY 6 HOURS. WILL CONTINUE TO MONITOR PT.
[2020-03-12] MEDS: ATORVASTATIN 20 MG TAB PO SCH (20:15)
--- NOTE | 2020-03-12 20:20 | NUR ---
PHONE CALL TO DR RUIZ; PT FOR PICC LINE PLACEMENT [email or web address].PT WITH SCHEDULED HEPARIN SUBQ, DR RUIZ SAID OK TO ADMINISTER HEPARIN.
--- NOTE | 2020-03-12 20:29 | NUR ---
RECEIVED PT ON DOCUMENTED SETTINGS. VENT PLUGGED INTO RED OUTLET. BMV AT BEDSIDE. ETT SECURED AND INTACT. ALARMS AUDIBLE AND WORKING. SX SMALL AMOUNT OF THICK RED/YELLOW SECRETION. PT IS IN NO DISTRESS. WILLL CONT TO MONITOR
--- NOTE | 2020-03-12 21:07 | NUR ---
PT HAD A BOWEL MOVEMENT. GLORY CARE, PERRY CARE, ORAL CARE DONE. TURNED AND REPOSITIONED. OGT TO FEEDING WITH 10ML RESIDUALS. INCREASED FEEDING RATE TO 50MLS/HR GOAL RATE. FREE WATER FLUSH OF 100ML/6HRS. PT TOLERATING FEEDING WELL. WILL CONTINUE TO MONITOR
--- NOTE | 2020-03-12 22:23 | NUR ---
PT RESTING IN BED WITH EYES CLOSED. NO RESPIRATORY DISTRESS OBSERVED. WILL CONTINUE TO MONITOR.
--- NOTE | 2020-03-12 23:15 | NUR ---
MORPHINE GIVEN FOR INCREASE IN VITALS AND PT FACIAL GRIMACING. WILL MONITOR PT.
--- NOTE | 2020-03-12 23:40 | NUR ---
PT HAD A BOWEL MOVEMENT ( DARK BROWN WATERY STOOL). RECTAL TUBE ORDERED. FLEXISEAL PLACED ORDERED CONNECTED TO FECAL BAG. PT TOLERATED PROCEDURE WELL. NO SIGNS OF DISTRESS OBSERVED. TURNED AND REPOSITIONED. GLORY CARE, ORAL CARE DONE. WILL CONTINUE TO MONITOR PT.
[2020-03-13] VITALS (55 sets, daily range): BP systolic 93–171; BP diastolic 44–88
[2020-03-13] MEDS: BLOOD GLUCOSE MONITORING 1 DEV DEV FS SCH ×6 (00:29→20:00)
[2020-03-13] MEDS: Z-GUARD PASTE TP SCH ×2 (00:38→13:54)
[2020-03-13] MEDS: ALBUTEROL HFA MDI 90 MCG/ACTUATION 8 GM INH SCH ×4 (01:22→19:00)
--- NOTE | 2020-03-13 02:00 | NUR ---
PT DOESN'T FOLLOW COMMANDS. OPENS EYES TO VOICE AND TACTILE STIMULI. NO DISTRESS OBSERVED. WILL CONTINUE TO MONITOR.
[2020-03-13] MEDS: ALUMINUM HYDROXIDE 64 MG/ML BOTTLE PO SCH ×3 (04:05→21:00)
[2020-03-13] MEDS: PIPERACILLIN/TAZOBACTAM 2.25 GM in DEXTROSE 5% 50 ML IV SCH ×3 (04:05→21:00)
[2020-03-13] MEDS: METOCLOPRAMIDE 10 MG/2 ML INJ VIAL IVP SCH ×3 (04:05→21:00)
[2020-03-13] MEDS: INSULIN LISPRO SLIDING SCALE 100 UNITS/ML VIAL SUBQ PRN ×2 (04:10→21:00)
--- NOTE | 2020-03-13 05:04 | NUR ---
PT REMAINS ON DOCUMENTED SETTINGS. NO CHANGES MADE. ETT REMAINS SECURED AND INTACT. PT IS IN NO DISTRESS. WILL CONT TO MONITOR
--- NOTE | 2020-03-13 05:42 | NUR ---
MORNING CARE COMPLETED. GLORY CARE, PERRY CARE, ORAL CARE. PT STILL DOESN'T FOLLOW COMMANDS. OGT TO FEEDING ON HER GOAL RATE OF 50MLS/HR WITH 100 MLS/6 HOURS FREE WATER FLUSH. TOLERATING FEEDING WELL. NO DISTRESS OBSERVED.
[2020-03-13 06:22] LABS: HEMATOCRIT 28.8 % (36-48); HEMOGLOBIN 9.4 g/dL (12.0-16.0); MEAN CORPUSCULAR HEMOGLOBIN 28 pg (27-31); MEAN CORPUSCULAR HGB CONC 33 g/dL (33-37); MEAN CORPUSCULAR VOLUME 85.9 fL (80-94); PLATELET COUNT (AUTO) 334 K/uL (140-450); RED BLOOD CELL COUNT(AUTO) 3.35 MIL/uL (4.20-5.40); RED CELL DISTRIBUTION WIDTH 16.8 % (11.6-13.7)
--- NOTE | 2020-03-13 06:30 | NUR ---
PT O2 SATS ON THE 80'S CALLED RT AT THIS TIME. WILL CONTINUE TO MONITOR
[2020-03-13] MEDS: MORPHINE SULFATE 2 MG/ML SYR IVP PRN ×2 (06:45→22:00)
--- NOTE | 2020-03-13 07:00 | NUR ---
recived pt on vent with settings as charted breath sounds present bilat sxn pt with min to mod amt off white secs ett secure vent plugged into red outlet ambu bag at bedside will continue to monitor pt on vent
--- NOTE | 2020-03-13 07:00 | NUR ---
RT AT BEDSIDE
[2020-03-13 07:11] LABS: ALBUMIN 1.5 g/dL (3.4-5.0); ANION GAP 18.5 (8-16); CARBON DIOXIDE 22.5 mmol/L (21-32); MAGNESIUM 2.2 mg/dL (1.8-2.4); PHOSPHORUS 4.7 mg/dL (2.5-4.9); TOTAL BILIRUBIN 0.5 mg/dL (0.0-1.0)
[2020-03-13 07:19] LABS: CREATININE 4.4 mg/dL (0.6-1.3)
[2020-03-13 07:26] LABS: LYMPHOCYTES % (MANUAL) 1 % (20-46); MONOCYTES % (MANUAL) 4 % (5-12)
--- NOTE | 2020-03-13 07:30 | NUR ---
RECEIVED CHANGE OF SHIFT REPORT FROM DISTRIBUTION ACCOUNTING CLERK NURSE. PT IS AROUSABLE TO VOICE AND LIGHT PAIN. EYES ARE PERRL. 3MM. PT IS ETT TO VENT A/MANAGER OF PURCHASING FIO2 70% PINSP 15 RR 18 TINSP 0.70 PEEP 5. LUNG SOUNDS CLEAR. EQUAL RISE AND FALL OF CHEST. SPO2 RANGING FROM 88%-92%. PT WAS DEEP LINE SUCTIONED AND ORALLY SUCTION. PT HAS BLOOD IN MOUTH. PT IS SR ON MONITOR. +2 RADIAL PULSES. CAP REFILL <3 SECONDS. PT HAS RIGHT FOREARM 20 G AND L AC 20 G. BOTH LINES ARE ASYMPTOMATIC, PATENT AND INTACT. LAC IS RUNNING IVF AT 5ML TKO. PT HAS TEMPORAL TEMPERATURE OF 100.8. WILL ADMINISTER TYLENOL. PT HAS OGT RUNNING NEPRO 50 ML/HR W/ FWF 100ML Q6HR. BLACK GASTRIC RESIDUALS WERE PULLED OUT. 275ML. FEEDING WAS HELD. PT HAS RECTAL TUBE AND PERRY CATHETER. BED IS LOCKED. HOB 30 DEGREES. CALL LIGHT WITHIN REACH. WILL CONTINUE TO MONITOR.
[2020-03-13] MEDS: ZINC SULF 220 MG CAP PO SCH (08:12)
[2020-03-13] MEDS: METOPROLOL 25 MG TAB PO SCH ×2 (08:12→21:00)
[2020-03-13] MEDS: ASCORBIC ACID 500 MG/5 ML ORASYR NG SCH (08:12)
[2020-03-13] MEDS: LOSARTAN 50 MG TAB PO SCH ×2 (08:12→21:00)
[2020-03-13] MEDS: methylPREDNISolone SS 40 MG/ML VIAL IVP SCH ×2 (08:12→21:00)
[2020-03-13] MEDS: CHOLECALCIFEROL 1,000 IU TAB NG SCH (08:13)
[2020-03-13] MEDS: VIT-B COMP/VIT-C/FOLIC ACID 1 TAB PO SCH (08:13)
[2020-03-13] MEDS: PANTOPRAZOLE 40 MG INJ VIAL IVP SCH ×2 (08:13→21:00)
--- NOTE | 2020-03-13 10:30 | NUR ---
PICC LINE NURSE AT BEDSIDE. WILL INSERT PICC LINE
--- NOTE | 2020-03-13 16:00 | NUR ---
DIALYSIS NURSE AT PT BEDSIDE TO START HEMODIALYSIS PROCEDURE
--- NOTE | 2020-03-13 17:40 | NUR ---
CONTINUED TO MONITOR PT ON VENT WITH SETTINGS CHARTED BREATH SOUNDS PRESENT BILAT COARSE SXN PT WITH MIN TO MOD AMT OFF WHITE SECS ETT SECURE AMBU BEDSIDE VENT PLUGGED INTO RED OUTLET
--- NOTE | 2020-03-13 18:11 | NUR ---
CONTINUED TO MONITOR PT ON VENT WITH SETTINGS HARTED BREATH SOUNDS PRESENT BILAT COARSE SXN PT WITH MIN TO MOD AMT OFF WHITE SECS ETT SECURE VENT PLIUGGED INTO RED OUTLET AMBU BAG AT BEDSIDE
--- NOTE | 2020-03-13 18:30 | NUR ---
SPO2 RANGING FROM 75-80%. SUCTIONING WAS PERFORMED, BOTH DEEP IN-LINE AND ORALLY. HOB WAS RAISED. SPO2 WAS RANGING 80-85%. RT MADE AWARE.
--- NOTE | 2020-03-13 19:00 | NUR ---
SPOKE TO DIALYSIS NURSE. 2L WAS REMOVED DURING HEMODIALYSIS.
--- NOTE | 2020-03-13 19:20 | NUR ---
BEDSIDE REPORT RECEIVED REPORT FROM AM SHIFT RN. PT LETHARGIC, OPENS EYES WITHDRAWS TO PAIN. SINUS TACHYCARDIA ON MONITOR. BREATHING PATTERN, USE OF ACCESSORY MUSCLE NOTED. ETT TO VENT. AC/PC MODE 100%, RR 14, PEEP 5. RFA 20 G, LAC 20G, JULIO C PICC, AND L UPPER CHEST TUNNELED DIALYSIS CATHETER INTACT, PATENT, AND SALINE LOCKED. OGT TO FEEDING. 10 RESIDUALS NOTED. SKIN NON INTACT, SEE WOUND ASSESSMENT. NOTED MODERATE AMOUNT OF BLEEDING FROM MOUTH AREA, ORAL SUCTIONED PROVIDED. PERRY CATHETER IN PLACE. RECTAL TUBE IN PLACE. HOB 30 DEGREES. BED LOCKED IN LOWEST POSITION. WILL CONTINUE TO MONITOR.
--- NOTE | 2020-03-13 19:20 | NUR ---
ENDORSED PT TO SHOP STEWARD NURSE TO ENSURE CONTINUITY OF CARE
--- NOTE | 2020-03-13 19:26 | NUR ---
increased fio2 to 100% sats were 80% on 80% fio2. patient is agonal breathing
--- NOTE | 2020-03-13 20:55 | NUR ---
SCHEDULED MEDICATIONS GIVEN ORDERED. WILL CONTINUE TO MONITOR.
[2020-03-13] MEDS: ATORVASTATIN 20 MG TAB PO SCH (21:00)
--- NOTE | 2020-03-13 21:38 | NUR ---
PT CLEANED, REPOSITIONED. MODERATE AMOUNT OF BLEEDING FROM MOUTH NOTED. MD AWARE. ORAL CARE AND SUCTIONED PROVIDED. SAFETY PRECAUTIONS IN PLACE. WILL CONTINUE TO MONITOR.
--- NOTE | 2020-03-13 23:15 | NUR ---
MODERATE AMOUNT OF BLEEDING FROM RIGHT AND LEFT NARES AND MOUTH NOTED. CALLED DR RUIZ IN TO ASSESS PT. PRESSURE CLIP APPLIED, SLIDING OFF. MANUAL PRESSURE APPLIED FOR 5 MINUTES. BED RAISED TO 45 DEGREES. SAFETY PRECAUTIONS IN PLACE. WILL CONTINUE TO MONITOR.
[2020-03-13] MEDS ORDERED: ACETAMINOPHEN 650 MG SUPP RC PRN (23:35)
[2020-03-14] VITALS (24 sets, daily range): BP systolic 84–162; BP diastolic 39–154
--- NOTE | 2020-03-14 00:30 | NUR ---
CALLED DAUGHTER IN [facility]. UPDATED ON PT STATUS AND CONDITION.
[2020-03-14] MEDS: ALBUTEROL HFA MDI 90 MCG/ACTUATION 8 GM INH SCH ×4 (01:00→19:17)
[2020-03-14] MEDS: Z-GUARD PASTE TP SCH ×2 (01:02→13:00)
--- NOTE | 2020-03-14 01:12 | NUR ---
THE BLEEDING FROM NARES AND MOUTH STOPPED. SAFETY PRECAUTIONS IN PLACE. WILL CONTINUE TO MONITOR.
--- NOTE | 2020-03-14 01:28 | NUR ---
CIRCUIT LEAK ON VENT, CALLED RT. RT AT BEDSIDE.
--- NOTE | 2020-03-14 03:12 | NUR ---
PT OPENS EYES, BREATHING PATTERN SHOWS USE OF ACCESSORY MUSCLES. RT AWARE. O2 SATURATION WNL. SAFETY PRECAUTIONS IN PLACE. WILL CONTINUE TO MONITOR.
[2020-03-14] MEDS: BLOOD GLUCOSE MONITORING 1 DEV DEV FS SCH ×10 (04:00→21:00)
--- NOTE | 2020-03-14 05:18 | NUR ---
PT CLEANED, REPOSITIONED, ORAL AND PERRY CARE PROVIDED. SAFETY PRECAUTIONS IN PLACE. HOB 30 DEGREES. BED LOCKED IN LOWEST POSITION. WILL CONTINUE TO MONITOR.
[2020-03-14] MEDS: METOCLOPRAMIDE 10 MG/2 ML INJ VIAL IVP SCH ×3 (05:28→21:54)
[2020-03-14] MEDS: ALUMINUM HYDROXIDE 64 MG/ML BOTTLE PO SCH ×3 (05:29→21:54)
[2020-03-14] MEDS: PIPERACILLIN/TAZOBACTAM 2.25 GM in DEXTROSE 5% 50 ML IV SCH ×3 (05:29→21:54)
[2020-03-14 05:59] LABS: HEMATOCRIT 24.9 % (36-48); HEMOGLOBIN 8.1 g/dL (12.0-16.0); MEAN CORPUSCULAR HEMOGLOBIN 28 pg (27-31); MEAN CORPUSCULAR HGB CONC 33 g/dL (33-37); MEAN CORPUSCULAR VOLUME 85.1 fL (80-94); PLATELET COUNT (AUTO) 335 K/uL (140-450); RED BLOOD CELL COUNT(AUTO) 2.92 MIL/uL (4.20-5.40); RED CELL DISTRIBUTION WIDTH 16.9 % (11.6-13.7)
[2020-03-14 06:06] LABS: WHITE BLOOD COUNT (AUTO) 38.3 K/uL (4.8-10.8)
--- NOTE | 2020-03-14 06:15 | NUR ---
NASAL PACKING APPLIED BY DR SULTANA IN LEFT NARE. WILL MONITOR IF BLEEDING CONTINUES.
[2020-03-14 06:30] LABS: EOSINOPHILS % (MANUAL) 1 % (0-4); LYMPHOCYTES % (MANUAL) 2 % (20-46); MONOCYTES % (MANUAL) 3 % (5-12)
[2020-03-14] MEDS ORDERED: TRANEXAMIC ACID 1,000 MG/10 ML VIAL MC ONE (06:45)
[2020-03-14 06:46] LABS: ALBUMIN 1.4 g/dL (3.4-5.0); ANION GAP 12.9 (8-16); CARBON DIOXIDE 28.2 mmol/L (21-32); CREATININE 2.9 mg/dL (0.6-1.3); MAGNESIUM 1.9 mg/dL (1.8-2.4); PHOSPHORUS 2.9 mg/dL (2.5-4.9); POTASSIUM 3.1 mmol/L (3.5-5.1); TOTAL BILIRUBIN 0.5 mg/dL (0.0-1.0)
--- NOTE | 2020-03-14 07:15 | NUR ---
BEDSIDE REPORT GIVEN TO AM SHIFT RN FOR CONTINUITY OF CARE.
--- NOTE | 2020-03-14 07:20 | NUR ---
RECEIVED REPORT FROM NIGHT NURSE. PT IN SUPINE POSITION, HOB 30DEG, EYES OPEN. RECEIVING O2 VIA MECHANICAL VENTILATOR IN ACPC MODE AT 100% FIO2, R18 PEEP 5. NO RESPIRATORY DISTRESS NOTED, O2 SAT 98%. PERRY IN PLACE, RECTAL TUBE IN PLACE. R UA PICC IN PLACE, R FA 20G AND L AC20G IN PLACE, PATENT AND ASYMPTOMATIC. SKIN NON-INTACT. FACIAL WOUND PRESENT FROM ANCHOR. OGT IN PLACE RECEIVING NEPRO AT 40ML/H WATER FLUSH 100Q6. HR91, BP 134/67. DROPLET PRECAUTIONS IN PLACE. SAFETY MEASURES IN PLACE, WILL CONTINUE TO MONITOR.
[2020-03-14] MEDS: VIT-B COMP/VIT-C/FOLIC ACID 1 TAB PO SCH (08:32)
[2020-03-14] MEDS: ASCORBIC ACID 500 MG/5 ML ORASYR NG SCH (08:32)
[2020-03-14] MEDS: LOSARTAN 50 MG TAB PO SCH ×2 (08:32→21:55)
[2020-03-14] MEDS: methylPREDNISolone SS 40 MG/ML VIAL IVP SCH ×2 (08:32→21:54)
[2020-03-14] MEDS: METOPROLOL 25 MG TAB PO SCH ×2 (08:33→21:55)
[2020-03-14] MEDS: PANTOPRAZOLE 40 MG INJ VIAL IVP SCH ×2 (08:33→21:54)
[2020-03-14] MEDS: ZINC SULF 220 MG CAP PO SCH (08:33)
[2020-03-14] MEDS: CHOLECALCIFEROL 1,000 IU TAB NG SCH (08:38)
[2020-03-14] MEDS ORDERED: TRANEXAMIC ACID 1,000 MG in NACL 0.9% 50 ML IV STA (08:49)
[2020-03-14] MEDS ORDERED: TRANEXAMIC ACID 1,000 MG/10 ML VIAL IV SCH (08:59)
[2020-03-14] MEDS ORDERED: POTASSIUM CHLORIDE 40 MEQ, LIDOCAINE MPF 1% 25 MG in NACL 0.9% 250 ML IV SCH (09:00)
--- NOTE | 2020-03-14 09:32 | NUR ---
MEDICATIONS ADMINISTERED PER ORDER, PT TOLERATED WELL, NO DISTRESS NOTED. OGT RESIDUAL CHECK DONE 0ML, FEEDING CONTINUED AT 40ML/H. ORAL CARE GIVEN. IV SITE DRESSINGS CHANGED AND FLUSHED. ASYMPTOMATIC AND PATENT. REPOSITIONED AT THIS TIME. TEMP 97.2. WILL CONTINUE TO MONITOR.
--- NOTE | 2020-03-14 09:45 | NUR ---
DR. SULTANA AT BEDSIDE APPLYING GAUZE SOAKED IN TRANEXAMIC ACID IN LEFT NARE
[2020-03-14] MEDS: INSULIN LISPRO SLIDING SCALE 100 UNITS/ML VIAL SUBQ PRN ×4 (09:47→22:11)
--- NOTE | 2020-03-14 09:51 | NUR ---
03/14/20 RD FOLLOW UP COMPLETED PLEASE REFER TO NUTRITION ASSESSMENT UNDER CARE ACTIVITY FOR ESTIMATED NUTRITIONAL NEEDS. 1. CONTINUE NEPRO 1.8 AT 50 ML/HR X 24 HR WITH PROSOURCE BID AND DIANE BID -THIS WILL PROVIDE 1200 ML OF VOLUME, 2280 CALORIES, 127GM OF PROTEIN, WHICH MEETS 100% OF ESTIMATED KCAL AND PROTEIN NEEDS 2. CONTINUE FREE WATER FLUSH OF 100 ML Q6H 3. CONTINUE NEPHRO-BRE, VITAMIN C, AND ZINC FOR WOUND HEALING 4. RD TO FOLLOW-UP 2-3 DAYS, HIGH RISK TERENCE AMBROSIO RD
--- NOTE | 2020-03-14 11:39 | NUR ---
K RIDER 40 MEQ GIVEN AT THIS TIME. BLOOD SUGAR 275, 6 UNITS OF HUMALOG GIVEN. ORAL CARE GIVEN TO PT, DECREASE IN ORAL BLOOD LOSS NOTICED. PT REPOSITIONED. TEMP 98.0.
[2020-03-14] MEDS ORDERED: NACL 0.9% IV SCH (12:00)
[2020-03-14] MEDS ORDERED: DESMOPRESSIN IV SCH (12:00)
--- NOTE | 2020-03-14 13:51 | NUR ---
MEDICATIONS ADMINISTERED PER ORDER, PT TOLERATED WELL. PT REPOSITIONED. FACE ANCHOR AND DRESSING CHANGED WITH RT ASSISTANCE. PERRY CARE GIVEN. WILL CONTINUE TO MONITOR.
--- NOTE | 2020-03-14 14:10 | NUR ---
PT SAT AT 100% ON FIO2 OF 100%. REDUCED FIO2 TO 80% AND PT REMAINED STABLE SAT AT 96%
--- NOTE | 2020-03-14 16:12 | NUR ---
PT REPOSITIONED AT THIS TIME. SACRAL DRESSING CHANGED, Z GUARD APPLIED. ORAL CARE GIVEN. OGT RESIDUALS CHECKED, 5ML. TUBE FEEDING INCREASED TO TARGET RATE OF 50ML. SAFETY MEASURES IN PLACE. WILL CONTINUE TO MONITOR.
[2020-03-14] MEDS: MORPHINE SULFATE 2 MG/ML SYR IVP PRN (16:44)
--- NOTE | 2020-03-14 19:15 | NUR ---
BEDSIDE REPORT RECEIVED FROM AM SHIFT RN. PT OPENS EYES, NO TRACKING NOTED, UNABLE TO FOLLOW COMMANDS. ETT TO VENT. ON AC/PC MODE. FIO2 80%, RR 18, PEEP 5. SINUS RHYTHM ON MONITOR. IV SITE RFA 20, LAC 20G, JULIO C PICC, INTACT, PATENT, SALINE LOCKED. GAUZE PACKING IN LEFT NARE, DRY AND INTACT, NO BLEEDING NOTED. OGT TO FEEDING. 20 ML RESIDUALS NOTED. PT ON SOFT BILAT WRIST RESTRAINTS, NO SKIN BREAKDOWN NOTED. SKIN WARM, DRY, AND NON INTACT, SEE WOUND ASSESSMENT. AFEBRILE. PERRY CATHETER AND RECTAL TUBE IN PLACE. HOB 30 DEGREES. BED LOCKED IN LOWEST POSITION. WILL CONTINUE TO MONITOR.
--- NOTE | 2020-03-14 19:15 | NUR ---
REPORT GIVEN TO NIGHT NURSE FOR CONTINUITY OF CARE.
--- NOTE | 2020-03-14 19:17 | NUR ---
RECEIVED PT ON PC PINSP 15 F 18 PEEP 5 80% FIO2 PT SEEMED TO BE SOMEWHAT RESPONSIVE AND RESTING COMFORTABLE PT WAS GIVEN ALB 2x PUFF AND TOLERATED WELL VENT IS PLUGGED IN TO RED OUTLET BMV AT BEDSIDE TUBE SECURED @ 20 CM
--- NOTE | 2020-03-14 21:30 | NUR ---
SCHEDULED MEDICATIONS GIVEN ORDERED. ORAL CARE PROVIDED. WILL CONTINUE TO MONITOR.
[2020-03-14] MEDS: ATORVASTATIN 20 MG TAB PO SCH (21:55)
--- NOTE | 2020-03-14 23:00 | NUR ---
SPOKE TO DAUGHTER IN LAW, UPDATED ON PT STATUS. ALL QUESTIONS ANSWERED.
[2020-03-15] VITALS (23 sets, daily range): BP systolic 134–185; BP diastolic 61–91
[2020-03-15] MEDS: MORPHINE SULFATE 2 MG/ML SYR IVP PRN ×2 (00:24→22:14)
[2020-03-15] MEDS: Z-GUARD PASTE TP SCH ×2 (00:25→12:49)
[2020-03-15] MEDS: INSULIN LISPRO SLIDING SCALE 100 UNITS/ML VIAL SUBQ PRN ×6 (00:25→21:20)
--- NOTE | 2020-03-15 01:12 | NUR ---
PT HAS EYES OPEN, NO TRACKING NOTED. RESPIRATIONS EVEN AND UNLABORED. HOB 30 DEGREES. BED LOCKED IN LOWEST POSITION. WILL CONTINUE TO MONITOR.
[2020-03-15] MEDS: ALBUTEROL HFA MDI 90 MCG/ACTUATION 8 GM INH SCH ×4 (01:57→19:00)
[2020-03-15] MEDS ORDERED: hydrALAZINE 20 MG/ML VIAL IVP ONE (02:10)
[2020-03-15] MEDS ORDERED: hydrALAZINE 20 MG/ML VIAL ONE (03:21)
[2020-03-15] MEDS: BLOOD GLUCOSE MONITORING 1 DEV DEV FS SCH ×7 (04:00→21:00)
--- NOTE | 2020-03-15 04:00 | NUR ---
PT STARTED DESATING ( 86% ) AFTER 2 HOURS @ 70% ( SAT IN THOSE 2 HOURS 93-95% ) PT WAS RETURNED TO 80% AND WAS SATING 87 PT WAS THEN BUMPED UP TO 100% VENT CHECK WAS ALSO COMPLETED AT THIS TIME PT WAS LEFT ON PC PINSP 15 PEEP 5 F 18 100% FIO2 VENT IS PLUGGED INTO RED OUTLET BMV @ BEDSIDE PT IS SOMEWHAT RESPONSIVE PT NODS HEAD AND SQUEEZED MY HAND 2X
[2020-03-15] MEDS: PIPERACILLIN/TAZOBACTAM 2.25 GM in DEXTROSE 5% 50 ML IV SCH ×2 (04:31→12:48)
[2020-03-15] MEDS: METOCLOPRAMIDE 10 MG/2 ML INJ VIAL IVP SCH ×3 (04:32→21:16)
[2020-03-15] MEDS: ALUMINUM HYDROXIDE 64 MG/ML BOTTLE PO SCH ×3 (04:32→21:17)
--- NOTE | 2020-03-15 05:50 | NUR ---
NOTIFIED DR VOSS THAT THE BLOOD SUGAR IS 412. FEEDING HELD. ORDERS TO GIVE 10 UNITS OF HUMALOG. WILL CONTINUE TO MONITOR.
[2020-03-15 06:03] LABS: HEMATOCRIT 22.2 % (36-48); HEMOGLOBIN 7.3 g/dL (12.0-16.0); MEAN CORPUSCULAR HEMOGLOBIN 28 pg (27-31); MEAN CORPUSCULAR HGB CONC 33 g/dL (33-37); MEAN CORPUSCULAR VOLUME 86.3 fL (80-94); PLATELET COUNT (AUTO) 354 K/uL (140-450); RED BLOOD CELL COUNT(AUTO) 2.57 MIL/uL (4.20-5.40); RED CELL DISTRIBUTION WIDTH 17.1 % (11.6-13.7)
[2020-03-15 06:11] LABS: WHITE BLOOD COUNT (AUTO) 29.7 K/uL (4.8-10.8)
[2020-03-15 06:25] LABS: ALBUMIN 1.5 g/dL (3.4-5.0); ANION GAP 18.9 (8-16); CARBON DIOXIDE 23.4 mmol/L (21-32); POTASSIUM 4.3 mmol/L (3.5-5.1); TOTAL BILIRUBIN 0.5 mg/dL (0.0-1.0)
[2020-03-15 06:34] LABS: CREATININE 4.3 mg/dL (0.6-1.3)
[2020-03-15 07:13] LABS: BASOPHILS % (MANUAL) 0 % (0-2); EOSINOPHILS % (MANUAL) 0 % (0-4); LYMPHOCYTES % (MANUAL) 2 % (20-46); MONOCYTES % (MANUAL) 3 % (5-12)
--- NOTE | 2020-03-15 07:15 | NUR ---
BEDSIDE REPORT GIVEN TO AM SHIFT RN FOR CONTINUITY OF CARE.
--- NOTE | 2020-03-15 07:34 | NUR ---
RECEIVED REPORT FROM NIGHT NURSE. PT UNABLE TO FOLLOW COMMANDS. OPENS EYES TO TACTILE STIMULI. ON ETT TO VENT AC/PC 18, FIO2 100%, PEEP 5. FLACC 0, RESPIRATIONS ARE EVEN AND UNLABORED, NO APPARENT DISTRESS. WITH RIGTH UPPER CHEST DIALYSIS CATH, RIGHT FOREARM 20G, LAC 20G ON SALINE LOCK. PERRY CATHETER INTACT AND PATENT. DRAINING CLEAR YELLOW URINE BY GRAVITY. WITH RECTAL TUBE IN PLACE. WITH SOFT WRIST RESTRAINTS. SAFETY PRECAUTIONS IN PLACE. ISOLATION PRECAUTION OBSERVED. WILL CONTINUE TO MONITOR
[2020-03-15 08:06] LABS: FOLIC ACID 12.3 ng/mL (>3.0)
--- NOTE | 2020-03-15 08:30 | NUR ---
OGT INTACT AND PATENT. WITH 10CC RESIDUALS. DUE MEDS GIVEN. TOLERATED WELL
[2020-03-15] MEDS: CHOLECALCIFEROL 1,000 IU TAB NG SCH (09:07)
[2020-03-15] MEDS: PANTOPRAZOLE 40 MG INJ VIAL IVP SCH ×2 (09:07→21:15)
[2020-03-15] MEDS: LOSARTAN 50 MG TAB PO SCH ×2 (09:07→21:19)
[2020-03-15] MEDS: ASCORBIC ACID 500 MG/5 ML ORASYR NG SCH (09:07)
[2020-03-15] MEDS: VIT-B COMP/VIT-C/FOLIC ACID 1 TAB PO SCH (09:07)
[2020-03-15] MEDS: ZINC SULF 220 MG CAP PO SCH (09:07)
[2020-03-15] MEDS: methylPREDNISolone SS 40 MG/ML VIAL IVP SCH (09:07)
[2020-03-15] MEDS: METOPROLOL 25 MG TAB PO SCH ×2 (09:07→21:19)
[2020-03-15] MEDS: hydrALAZINE 10 MG TAB PO SCH ×2 (09:07→21:17)
--- NOTE | 2020-03-15 09:50 | NUR ---
PT IN BED. EYES OPEN, FLACC 0, NO SOB
--- NOTE | 2020-03-15 10:23 | NUR ---
PT SAT 100% ON FIO2 100%. REDUCED FIO2 TO 75%, SAT STABLE AT 96%. WILL CONTINUE TO MONITOR.
--- NOTE | 2020-03-15 12:15 | NUR ---
BLOOD SUGAR 430. COVERAGE GIVEN. RES MADE AWARE WITH NEW ORDER FOR LANTUS
[2020-03-15] MEDS ORDERED: INSULIN LANTUS 100 UNITS/ML 10 ML VIAL SUBQ SCH (12:30)
[2020-03-15] MEDS: SODIUM FERRIC GLUCONATE 125 MG in NACL 0.9% 100 ML IV SCH (12:48)
--- NOTE | 2020-03-15 14:40 | NUR ---
FLACC 0, NO SOB, RESPIRATIONS ARE EVEN AND UNLABORED, SAFETY PRECAUTIONS IN PLACE
--- NOTE | 2020-03-15 16:30 | NUR ---
BLOOD PRESSURE 185/78. RES MADE AWARE
--- NOTE | 2020-03-15 16:30 | NUR ---
BLOOD SUGAR 455. COVERAGE GIVEN. RESIDENT MD MADE AWARE
--- NOTE | 2020-03-15 17:35 | NUR ---
DECREASED FIO2 TO 60% PER DR. TITRATION ORDERS. PT SAT STABLE AT 94%.
[2020-03-15] MEDS ORDERED: VANCOMYCIN PER PHARMACY MC PRN (18:00)
--- NOTE | 2020-03-15 18:00 | NUR ---
HYDRALAZINE IVP GIVEN ORDERED
[2020-03-15] MEDS ORDERED: VANCOMYCIN 1,500 MG in DEXTROSE 5% 500 ML IV ONE (18:40)
--- NOTE | 2020-03-15 19:00 | NUR ---
ENDORSED TO TRANSPORTATION EQUIPMENT PAINTER FOR CONTINUITY OF CARE. IN STABLE CONDITION
--- NOTE | 2020-03-15 19:25 | NUR ---
RECEIVED REPORT FROM AM SHIFT. PATIENT SEEN AND ASSESSED. PATIENT IS INTUBATED WITH ETT SIZE 7.5 AND SECURED WITH ANCHOR-FAST AT 21CM. AUSCULTATION REVEALS BILATERAL COARSE BREATH SOUNDS. PATIENT ON VENT SETTINGS AC/PC 15, 18,+8, 65% WITH SPO2 OF 91%. VENT PLUGGED IN RED OUTLET, HOB > 30 DEGREES, AMBU BAG AT BEDSIDE, AND ALARMS SET AND AUDIBLE. PATIENT IS IN NO APPARENT RESPIRATORY DISTRESS AT THIS TIME. MDI TX GIVEN ORDERED AND PATIENT TOLERATED WELL WITH NO ADVERSE REACTION. SUCTIONED SMALL AMOUNT OF CLEAR/WHITE THICK SECRETIONS FROM ETT AND SMALL ORAL SECRETIONS. AIRWAY IS PATIENT. WILL CONTINUE TO MONITOR PATIENT.
[2020-03-15] MEDS: MEROPENEM 500 MG in NACL 0.9% 50 ML IV SCH (19:30)
--- NOTE | 2020-03-15 19:30 | NUR ---
RECEIVED PT FROM DAY SHIFT RN, ETT TO VENT AC/PC FIO2 60 RR 18 PEEP 8, OGT TO FEEDING NEPRO 50 ML/HR WATER FLUSH 100 ML Q6H, LUNG SOUNDS DIMINISHED S1 AND S2 HEART SOUNDS HEARD BOWEL SOUNDS PRESENT, PT HAS PERRY CATHETER IN PLACE DRAINING CLOUDY YELLOW URINE, PT HAS RECTAL TUBE IN PLACE DRAINING BROWN LIQUID FECES, BP AND HR ELEVATED, SAFETY PROTOCOLS IN PLACE WILL CONTINUE TO MONITOR PT.
[2020-03-15] MEDS ORDERED: MEROPENEM 500 MG VIAL IV ONE (19:47)
[2020-03-15] MEDS ORDERED: VANCOMYCIN 1,000 MG VIAL ONE (20:33)
[2020-03-15] MEDS ORDERED: VANCOMYCIN 500 MG VIAL ONE (20:55)
[2020-03-15] MEDS ORDERED: INSULIN NPH HUMAN ISOPHANE 100 UNIT/ML VIAL SUBQ SCH (21:00)
[2020-03-15] MEDS ORDERED: methylPREDNISolone SS 40 MG/ML VIAL IVP SCH (21:00)
[2020-03-15] MEDS: ATORVASTATIN 20 MG TAB PO SCH (21:19)
--- NOTE | 2020-03-15 21:59 | NUR ---
ANCHOR-FAST CHANGED. ETT IS SECURED AND INTACT. AIRWAY IS PATENT. PATIENT IN NO RESPIRATORY DISTRESS AT THIS TIME. WILL CONTINUE TO MONITOR PATIENT.
--- NOTE | 2020-03-15 22:03 | NUR ---
ALL PT MEDS GIVEN, WOUND CARE PHOTOS TAKEN AND DRESSINGS CHANGED WILL CONTINUE TO MONITOR PT
[2020-03-16] VITALS (24 sets, daily range): BP systolic 110–178; BP diastolic 58–86
[2020-03-16] MEDS: INSULIN LISPRO SLIDING SCALE 100 UNITS/ML VIAL SUBQ PRN ×6 (00:02→23:39)
[2020-03-16] MEDS: BLOOD GLUCOSE MONITORING 1 DEV DEV FS SCH ×6 (00:02→23:40)
[2020-03-16] MEDS: Z-GUARD PASTE TP SCH ×2 (01:00→12:49)
--- NOTE | 2020-03-16 01:00 | NUR ---
PT RESTING IN BED NO SIGNS OF DISTRESS NOTED WILL CONTINUE TO MONITOR PT
[2020-03-16] MEDS: ALBUTEROL HFA MDI 90 MCG/ACTUATION 8 GM INH SCH ×4 (01:38→19:27)
--- NOTE | 2020-03-16 02:10 | NUR ---
SPUTUM COLLECTED AND SENT TO LAB.
--- NOTE | 2020-03-16 04:00 | NUR ---
PT BED BATH GIVEN, BLOOD GLUCOSE ELEVATED MD ORDERED ONE TIME DOES LANTUS 10 UNITS, NO OTHER SIGNS OF DISTRESS NOTED WILL CONTINUE TO MONITOR PT
[2020-03-16] MEDS: ALUMINUM HYDROXIDE 64 MG/ML BOTTLE PO SCH ×3 (04:15→20:48)
[2020-03-16] MEDS: METOCLOPRAMIDE 10 MG/2 ML INJ VIAL IVP SCH ×3 (04:15→20:47)
[2020-03-16] MEDS ORDERED: INSULIN LANTUS 100 UNITS/ML 10 ML VIAL SUBQ ONE (04:30)
--- NOTE | 2020-03-16 06:14 | NUR ---
PATIENT STILL REMAINS ON VENT SUPPORT. AIRWAY IS PATENT. EQUAL CHEST RISE AND FALL. ETT IS SECURED AND INTACT. PATIENT IN NO DISTRESS AT THIS TIME. WILL CONTINUE TO MONITOR.
[2020-03-16 06:17] LABS: ALBUMIN 1.5 g/dL (3.4-5.0); ANION GAP 20.2 (8-16); POTASSIUM 4.2 mmol/L (3.5-5.1); TOTAL BILIRUBIN 0.4 mg/dL (0.0-1.0)
[2020-03-16 06:57] LABS: CREATININE 5.1 mg/dL (0.6-1.3)
[2020-03-16 07:17] LABS: MEAN CORPUSCULAR HEMOGLOBIN 28 pg (27-31); MEAN CORPUSCULAR HGB CONC 33 g/dL (33-37); MEAN CORPUSCULAR VOLUME 87.4 fL (80-94); PLATELET COUNT (AUTO) 334 K/uL (140-450); RED BLOOD CELL COUNT(AUTO) 2.22 MIL/uL (4.20-5.40); RED CELL DISTRIBUTION WIDTH 17.5 % (11.6-13.7)
--- NOTE | 2020-03-16 07:30 | NUR ---
RECEIVED REPORT FROM WILIAN RN PT. IS INTUBATED ETT TO VENT AC 15 FIO2 60% O2 SAT 99% OGTUBE FEEDING WITH NEPRO AT 40ML/HR FREE WATER FLUSH 100ML/6HR , PERRY CATH DRAIN NO URINE AT THE TIME.RECTAL BAG DRAIN GREEN LIQUID BM,ABDOMEN SOFT BOWEL SOUND ACTIVE, PRESSURE WOUND ON RT EAR IS HEALED.
--- NOTE | 2020-03-16 08:00 | NUR ---
BLOOD GLUCOSE 447 DR. SULTANA NOTIFIED ORDER TO INCREASE NOVARIN N FROM 25 UNITS TO 40 UNITS BID AND COVER WITH 10 UNITOF HUMALOG INSULIN. ORDERED,
[2020-03-16 08:08] LABS: HEMATOCRIT 19.4 % (36-48); HEMOGLOBIN 6.3 g/dL (12.0-16.0); WHITE BLOOD COUNT (AUTO) 27.1 K/uL (4.8-10.8)
[2020-03-16 08:09] LABS: LYMPHOCYTES % (MANUAL) 4 % (20-46); MONOCYTES % (MANUAL) 5 % (5-12)
--- NOTE | 2020-03-16 08:37 | NUR ---
READ BACK ABG RESULTS TO DR. MASON. GAVE ORDERS TO INCREASE FI02 TO 65%.
[2020-03-16] MEDS: ASCORBIC ACID 500 MG/5 ML ORASYR NG SCH (08:46)
[2020-03-16] MEDS: methylPREDNISolone SS 40 MG/ML VIAL IVP SCH ×2 (08:46→20:47)
[2020-03-16] MEDS: PANTOPRAZOLE 40 MG INJ VIAL IVP SCH ×2 (08:46→20:47)
[2020-03-16] MEDS: hydrALAZINE 10 MG TAB PO SCH ×2 (08:47→20:48)
[2020-03-16] MEDS: CHOLECALCIFEROL 1,000 IU TAB NG SCH (08:47)
[2020-03-16] MEDS: METOPROLOL 25 MG TAB PO SCH ×2 (08:48→20:49)
[2020-03-16] MEDS: LOSARTAN 50 MG TAB PO SCH ×2 (08:49→20:49)
[2020-03-16] MEDS: VIT-B COMP/VIT-C/FOLIC ACID 1 TAB PO SCH (09:26)
[2020-03-16] MEDS: INSULIN NPH HUMAN ISOPHANE 100 UNIT/ML VIAL SUBQ SCH ×2 (09:28→20:51)
--- NOTE | 2020-03-16 10:00 | NUR ---
REPOSITION GENTLE ORAL CARE GIVEN
--- NOTE | 2020-03-16 12:00 | NUR ---
BLOOD GLUCOSE 361 INSULIN COVER GIVEN ORDERED.
[2020-03-16] MEDS: SODIUM FERRIC GLUCONATE 125 MG in NACL 0.9% 100 ML IV SCH (12:47)
[2020-03-16] MEDS: MEROPENEM 500 MG in NACL 0.9% 50 ML IV SCH (12:48)
--- NOTE | 2020-03-16 13:45 | NUR ---
HEMODIALYSIS STARTED PT. VITAL SIGN WITH IN NORMAL LIMITL
--- NOTE | 2020-03-16 14:30 | NUR ---
1UNIT OF BLOOD TRANSFUSION STARTED DURING HEMODIALYSIS.
--- NOTE | 2020-03-16 16:45 | NUR ---
HEMODIALYSIS COMPLETED DRAN FLUID OUT 2800ML.
--- NOTE | 2020-03-16 17:00 | NUR ---
BLOOD GLUCOSE 166 INSULIN COVERAGE GIVEN ORDER,
--- NOTE | 2020-03-16 19:17 | NUR ---
PT RESTING QUIETLY REPORT GIVE TO FITZ GIRALDO,
--- NOTE | 2020-03-16 19:30 | NUR ---
RECEIVED REPORT FROM DAY SHIFT RN PT ETT TO VENT AC/PC FIO2 60 RR 18 PEEP 8, PT HAS RIJ PORT FOR HEMODIALYSIS, JULIO C PICC AND LEFT FOREARM PERIPHERAL, PT HAS PERRY CATHETER IN PLACE NO OUT PUT OBSERVED AT THIS TIME, AND RECTAL TUBE IN PLACE DRAINING BROWN LIQUID FECES, OGT TO FEEDING NEPRO 40 ML/HR WATER FLUSH [id number], PT DISPLAYS LABORED BREATHING AND COARSE LUNG SOUNDS, S1 AND S2 HEART SOUNDS HEARD, PULSES PALPABLE UPPER AND LOWER EXTREMITIES, BOWEL SOUNDS ACTIVE, HR AND BP ELEVATED, SAFETY PROTOCOLS IN PLACE WILL CONTINUE TO MONITOR PT.
--- NOTE | 2020-03-16 20:20 | NUR ---
ALL PT MEDS GIVEN AND PT REPOSITIONED IN BED WILL CONTINUE TO MONITOR PT Addendum: 03/16/20 at 2250 by Alexy Jordan RN PT REPOSITIONED FROM RIGHT SIDE TO LEFT SIDE
[2020-03-16] MEDS: ATORVASTATIN 20 MG TAB PO SCH (20:49)
--- NOTE | 2020-03-16 22:45 | NUR ---
RECEIVED PT REPORT FROM KRISTAL BYRNES. WILL FOLLOW UP WITH CARE AT THIS TIME.
[2020-03-16] MEDS: MORPHINE SULFATE 2 MG/ML SYR IVP PRN (23:05)
[2020-03-17] VITALS (23 sets, daily range): BP systolic 107–178; BP diastolic 53–105
[2020-03-17] MEDS: Z-GUARD PASTE TP SCH ×2 (00:06→12:59)
--- NOTE | 2020-03-17 01:23 | NUR ---
RESPIRATORY AT BEDSIDE AT THIS TIME.
[2020-03-17] MEDS: ALBUTEROL HFA MDI 90 MCG/ACTUATION 8 GM INH SCH ×4 (01:26→19:38)
--- NOTE | 2020-03-17 01:30 | NUR ---
ATTEMPTED TO TITRATE FIO2. PT DID NOT TOLERATE, DESATURATED. INCREASED FIO2 TO 70% TO MAINTAIN ADEQUATE OXYGENATION. WILL CONTINUE TO MONITOR.
[2020-03-17] MEDS: hydrALAZINE 20 MG/ML VIAL IVP PRN (01:40)
--- NOTE | 2020-03-17 01:50 | NUR ---
HYDRALAZINE ADMINISTERED ORDERED AT THIS TIME, FOR ELEVATED BP. WILL CONT TO MONITOR.
[2020-03-17] MEDS: BLOOD GLUCOSE MONITORING 1 DEV DEV FS SCH ×5 (04:00→20:37)
--- NOTE | 2020-03-17 04:00 | NUR ---
REPOSITIONED WITH PRESSURE AREAS OFFLOADED. FLACC 0. VAP ORAL CARE PROVIDED. SAFETY PRECAUTIONS IN PLACE. WILL CONT TO MONITOR FOR CHANGES.
[2020-03-17] MEDS: ALUMINUM HYDROXIDE 64 MG/ML BOTTLE PO SCH ×3 (04:13→20:09)
[2020-03-17] MEDS: METOCLOPRAMIDE 10 MG/2 ML INJ VIAL IVP SCH ×3 (04:13→20:05)
[2020-03-17] MEDS: INSULIN LISPRO SLIDING SCALE 100 UNITS/ML VIAL SUBQ PRN ×3 (05:02→20:38)
[2020-03-17 05:46] LABS: CARBON DIOXIDE 25.5 mmol/L (21-32); POTASSIUM 3.7 mmol/L (3.5-5.1)
[2020-03-17 05:47] LABS: ALBUMIN 1.5 g/dL (3.4-5.0); ANION GAP 15.2 (8-16); CREATININE 3.2 mg/dL (0.6-1.3); MAGNESIUM 1.8 mg/dL (1.8-2.4); PHOSPHORUS 3.5 mg/dL (2.5-4.9); TOTAL BILIRUBIN 0.4 mg/dL (0.0-1.0)
[2020-03-17 06:02] LABS: BASOPHILS % (AUTO) 0.1 % (0.0-2.0); EOSINOPHILS # (AUTO) 0.2 K/uL (0-0.4); EOSINOPHILS % (AUTO) 0.7 % (0.0-4.0); HEMATOCRIT 25.9 % (36-48); HEMOGLOBIN 8.8 g/dL (12.0-16.0); LYMPHOCYTES # (AUTO) 0.4 K/uL (2.5-16.5); LYMPHOCYTES % (AUTO) 1.5 % (20.5-51.1); MEAN CORPUSCULAR HEMOGLOBIN 29 pg (27-31); MEAN CORPUSCULAR HGB CONC 34 g/dL (33-37); MEAN CORPUSCULAR VOLUME 86.9 fL (80-94); MONOCYTES # (AUTO) 1.9 K/uL (0.8-1.0); MONOCYTES % (AUTO) 7.5 % (1.7-9.3); NEUTROPHILS # (AUTO) 22.6 K/uL (1.8-7.7); NEUTROPHILS % (AUTO) 90.2 % (42.2-75.2); PLATELET COUNT (AUTO) 345 K/uL (140-450); RED BLOOD CELL COUNT(AUTO) 2.98 MIL/uL (4.20-5.40); RED CELL DISTRIBUTION WIDTH 16.6 % (11.6-13.7)
--- NOTE | 2020-03-17 07:05 | NUR ---
RECEIVED PT FROM HOUSE CALLS NURSE PRACTITIONER. ETT IS SECURED AND INTACT. VENT CHECK DONE. TX GIVEN INLINE. VENT IS PLUGGED INTO RED OUTLET, ALARMS ON AND FUNCTIONING, AMBU BAG AT BEDSIDE. CPAP 10/8 70% INITIATED AT THIS TIME WELL. PT SHOWS NO SIGN OF DISTRESS. WILL CONTINUE TO MONITOR.
--- NOTE | 2020-03-17 07:20 | NUR ---
REPORT RECEIVED FROM NIGHT RN, PT RESTING WITH EYES OPEN, RESP EVEN UNLABORED WITH ETT TO VENT, ACPC FIO2 70%, PEEP 8, RR 18, EQUAL CHEST RISE AND FALL, VITALS STABLE ON MONITOR HR 102, BP 133/64, RR 18, O2SAT 97%, OGT IN PLACE FEEDING AT 40ML/HR, FWF 100/6HRS, SUBCLAVIAN TUNNEL CATH TO RIGHT UPPER CHEST WALL, PIV 20G TO LEFT FA, R UA PICC SITES WNL, PERRY IN PLACE, MINIMAL DARK URINE NOTED IN TUBING AND BAG, ON RESTRAINTS, NO S/S INJURIES NOTED ON BILAT WRISTS, POC REVIEWED, ALL SAFETY MEASURES IN PLACE, WILL CONTINUE TO MONITOR. DRY WT 59.8KG.
[2020-03-17] MEDS: methylPREDNISolone SS 40 MG/ML VIAL IVP SCH ×2 (08:12→20:04)
[2020-03-17] MEDS: PANTOPRAZOLE 40 MG INJ VIAL IVP SCH ×2 (08:14→20:04)
[2020-03-17] MEDS: CHOLECALCIFEROL 1,000 IU TAB NG SCH (08:14)
[2020-03-17] MEDS: ASCORBIC ACID 500 MG/5 ML ORASYR NG SCH (08:15)
[2020-03-17] MEDS: METOPROLOL 25 MG TAB PO SCH ×2 (08:16→20:10)
[2020-03-17] MEDS: LOSARTAN 50 MG TAB PO SCH ×2 (08:16→20:10)
[2020-03-17] MEDS: VIT-B COMP/VIT-C/FOLIC ACID 1 TAB PO SCH (08:17)
[2020-03-17] MEDS: hydrALAZINE 10 MG TAB PO SCH ×3 (08:18→17:00)
--- NOTE | 2020-03-17 08:40 | NUR ---
AM MEDS GIVEN, OGT RESIDUAL 0, DIANE AND PROSOURCE GIVEN, ORAL CARE DONE, CHG WIPE DONE, PERICARE DONE, PERRY CARE DONE, RE POSITIONED, PT AWAKE, FOLLOWS SOME COMMANDS, ATTEMPTS TO REACH TOWARD ETT TUBINGS DESPITE INSTRUCTED NOT TO PULL.
[2020-03-17] MEDS: INSULIN NPH HUMAN ISOPHANE 100 UNIT/ML VIAL SUBQ SCH ×2 (09:00→20:37)
--- NOTE | 2020-03-17 10:25 | NUR ---
CPAP ENDED, PT BACK ON ORIGINAL VENT SETTINGS PER DR. MASON. PT SET PEEP IS NOW +[address] MASON. TITRATED FIO2 TO 65%. PT IS TOLERATING WELL WITH NO SIGN OF DISTRESS. WILL CONTINUE TO MONITOR.
--- NOTE | 2020-03-17 10:30 | NUR ---
DR MASON AT BEDSIDE WITH DR FRAIRE AND RT MELCHOR.
--- NOTE | 2020-03-17 12:25 | NUR ---
VENT CHECK DONE. BLOODY ORAL SECRETIONS NOTED, GUTIERREZ SX: CLR/ROONEY SECRETIONS. ANCHOR FAST CHANGED, ETT SECURED. NURSE HARSHA AT BEDSIDE.
--- NOTE | 2020-03-17 12:30 | NUR ---
AFTER POSITION CHANGE, BLEEDING NOTED FROM MOUTH, UNABLE TO SEE THE SOURCE OF BLEED, ETT SECURING DEVICE SLIDING DOWN OVER LOWER LIP, HOB ELEVATED, RT CALLED, SILVANO RT TO BEDSIDE, ETT SECURING DEVICE REPLACED, BILAT CHEEK WOUND CARE DONE, MOUTH AND LIPS CLEANED, BLEEDING APPEARS TO BE FROM THE TONGUE, TIP OF HER TONGUE ON RIGHT SIDE APPEARS JAGGED AND ERODED AND WOOZING BLOOD, ICE PACK AND PRESSURE APPLIED. DR FRAIRE AT BEDSIDE.
[2020-03-17] MEDS: MORPHINE SULFATE 2 MG/ML SYR IVP PRN ×2 (12:59→23:40)
--- NOTE | 2020-03-17 12:59 | NUR ---
PT RESTLESS, KEEPS TRYING TO MOVE HER ARM, BP AND HR INCREASED, FLACC 7, MORPHINE GIVEN FOR PAIN
[2020-03-17 13:53] LABS: PROTHROMBIN TIME 10.1 secs (10.8-13.4)
--- NOTE | 2020-03-17 14:00 | NUR ---
PT RESTING WITH EYES CLOSED, FLACC 0 NOW, WILL CONTINEU TO MOTNIOR Addendum: 03/17/20 at 1654 by Leslie Ochoa RN BLEEDING FROM MOUTH AND TONGUE SUBSIDED, SALIVA DROOLING WITH SMALL BLOOD TINGE ONLY
--- NOTE | 2020-03-17 15:06 | NUR ---
03/17/20 RD FOLLOW UP COMPLETED PLEASE REFER TO NUTRITION ASSESSMENT UNDER CARE ACTIVITY FOR ESTIMATED NUTRITIONAL NEEDS. 1. RECOMMEND NEPRO 1.8 AT 50 ML/HR WITH PROSOURCE BID AND DIANE BID -THIS WILL PROVIDE 1200 ML OF VOLUME, 2280 CALORIES, 127GM OF PROTEIN, WHICH MEETS 100% OF ESTIMATED KCAL AND PROTEIN NEEDS 2. CONTINUE FREE WATER FLUSH OF 100 ML Q6H 3. CONTINUE NEPHRO-BRE, VITAMIN C FOR WOUND HEALING 4. RD TO FOLLOW-UP 2-3 DAYS, HIGH RISK RITU OG RD
--- NOTE | 2020-03-17 15:20 | NUR ---
SHAHBAZ CALLED DIALYSIS NURSE DOYLE TO INFORM OF DAILYSIS ORDER FOR TOMORROW(03/18/2020).
--- NOTE | 2020-03-17 15:50 | NUR ---
BEDSIDE GLUCOSE 142, NO INSULIN NEEDED PER SLIDING SCALE, RE POSTITIONED, GOWN CHANGED, PICC LINE DRESSING CHANGED, NO FURTHER BLEEDING FROM THE MOUTH NOTED, DRY BLOOD ON LIPS, DR SULTANA, WOUND NURSE GEORGE ON UNIT, THEY RECOMMEND MINIMAL ORAL SUCTIONING AND ORAL CARE TO PREVENT FURTHER BLEEDING.
--- NOTE | 2020-03-17 16:00 | NUR ---
PRIMARY RN REPORTED MORE SKIN FAILURE NOTICED LIPS AND ORAL MUCOSAL ULCERATIONS, BLEEDING AT TIMES. ETT AND OT IN PLACE AND SECURED. POC DISCUSSED WITH PHYSICIAN IF POSSIBLE TO HAVE TRACH AND GT.
--- NOTE | 2020-03-17 16:50 | NUR ---
PT REMAINS ON DOCUMENTED SETTINGS. ETT IS SECURED AND INTACT. NO DISTRESS NOTED AT THIS TIME. VENT CHECK DONE, VENT PLUGGED INTO RED OUTLET, ALARMS ON AND FUNCTIONING, AMBU BAG AT BEDSIDE.
[2020-03-17] MEDS: MEROPENEM 500 MG in NACL 0.9% 50 ML IV SCH (18:15)
--- NOTE | 2020-03-17 18:20 | NUR ---
PT RESTING QUIETLY, NO LONGER ORAL BLEEDING, IVPB MEROPENEM STARTED PER ORDER. NO URINE OUTPUT THIS SHIFT IN PERRY CATH.
--- NOTE | 2020-03-17 19:15 | NUR ---
REPORT GIVEN TO MEDICAL DIRECTOR/HEAD TEAM PHYSICIAN NURSE, PT IN STABLE CONDITION.
--- NOTE | 2020-03-17 19:38 | NUR ---
RECEIVED REPORT FROM AM SHIFT. PATIENT SEEN AND ASSESSED. PATIENT IS INTUBATED WITH ETT SIZE 7.5 AND SECURED WITH ANCHOR-FAST AT 21CM. AUSCULTATION REVEALS BILATERAL COARSE BREATH SOUNDS. PATIENT ON VENT SETTINGS AC/PC 15, 18,+10, 60% WITH SPO2 OF 100%. TITRATED FiO2 TO 55% WITH SPO2 OF 95%. VENT PLUGGED IN RED OUTLET, HOB > 30 DEGREES, AMBU BAG AT BEDSIDE, AND ALARMS SET AND AUDIBLE. PATIENT IS IN NO APPARENT RESPIRATORY DISTRESS AT THIS TIME. MDI TX GIVEN ORDERED VIA IN LINE VENT, AND PATIENT TOLERATED WELL WITH NO ADVERSE REACTION. SUCTIONED SMALL AMOUNT OF PINK TINGE SECRETIONS FROM ETT AND SMALL BLOODY ORAL SECRETIONS. AIRWAY IS PATIENT. WILL CONTINUE TO MONITOR PATIENT.
--- NOTE | 2020-03-17 19:45 | NUR ---
PT ETT TO VENT- A/C PC FIO2 60%, PINSP 15, RATE 18, PEEP 10. BOWEL SOUNDS ACTIVE, ABDOMEN SOFT AND NON DISTENDED. PT HAS ACCESS TO THE RIGHT CHEST TUNNELED CATH FOR DIALYSIS, PICC LINE ON THE RIGHT UPPER ARM AND 20G LEFT AC, ALL ASYMPTOMATIC AND PATENT. SKIN NON-INTACT. PRESSURE ULCERS OBSERVED ON THE SACRUM, BILATERAL CHEEKS AND EARS. DRESSINGS CLEAN DRY AND INTACT. PULSES PALPABLE. RESPIRATION EVEN AND UNLABORED. EQUAL CHEST RISE AND FALL. ON RESTRAINTS.ORAL MUCOSA PINK AND MOIST WITH SMALL AMOUNT OF BLOOD SECRETIONS FROM THE MOUTH. OPENS EYES TO VOICE AND TACTILE STIMULI. PERRY CATHETER AND RECTAL TUBE IN PLACE DRAINING TO GRAVITY. SIDE RAILS UP, BED IN THE LOWEST POSITION. LUNGS ARE DIMINISHED IN ALL QUADRANTS UPON AUSCULTATION. OGT INTACT AND PATENT RUNNING @ 40ML/HR NEPRO AND 100ML FREE WATER FLUSH EVERY 6 HOURS. NO DISTRESS OBSERVED. WILL CONTINUE TO MONITOR PT.
--- NOTE | 2020-03-17 19:50 | NUR ---
TITRATED PATIENT FiO2 FROM 60% TO 55% WITH CURRENT SPO2 OF 91%. WILL CONTINUE TO MONITOR PATIENT.
[2020-03-17] MEDS: ATORVASTATIN 20 MG TAB PO SCH (20:09)
--- NOTE | 2020-03-17 21:00 | NUR ---
ORAL CARE DONE WITH SMALL AMOUNT OF BLOODY SECRETIONS. NO DISTRESS OBSERVED AT THIS TIME. WILL CONTINUE TO MONITOR.
[2020-03-18] VITALS (24 sets, daily range): BP systolic 87–164; BP diastolic 62–85
--- NOTE | 2020-03-18 | NUR ---
PT IN BED. UNABLE TO FOLLOW COMMANDS. ORAL CARE, GLORY CARE, PERRY CARE DONE. NO DISTRESS OBSERVED AT THIS TIME. WILL CONTINUE TO MONITOR.
[2020-03-18] MEDS: BLOOD GLUCOSE MONITORING 1 DEV DEV FS SCH ×6 (00:51→20:00)
[2020-03-18] MEDS: INSULIN LISPRO SLIDING SCALE 100 UNITS/ML VIAL SUBQ PRN ×7 (00:52→23:49)
[2020-03-18] MEDS: Z-GUARD PASTE TP SCH ×2 (01:00→13:00)
[2020-03-18] MEDS: ALBUTEROL HFA MDI 90 MCG/ACTUATION 8 GM INH SCH ×4 (01:34→19:28)
--- NOTE | 2020-03-18 02:12 | NUR ---
PT RESTING IN BED. NO RESPIRATORY DISTRESS OBSERVED. TURNED AND REPOSITIONED. WILL CONTINUE TO MONITOR.
[2020-03-18] MEDS: METOCLOPRAMIDE 10 MG/2 ML INJ VIAL IVP SCH ×3 (04:33→20:42)
[2020-03-18] MEDS: ALUMINUM HYDROXIDE 64 MG/ML BOTTLE PO SCH ×3 (04:34→20:39)
[2020-03-18] MEDS: MORPHINE SULFATE 2 MG/ML SYR IVP PRN ×4 (05:33→20:54)
--- NOTE | 2020-03-18 05:37 | NUR ---
MORNING CARE DONE. PT WAS TURNED AND REPOSITIONED. PERRY AND RECTAL TUBE PATENT, INTACT, DRAINING TO GRAVITY. FACIAL GRIMACING OBSERVED AND VITAL CHANGES. PRN MORPHINE GIVEN ORDERED.WILL CONTINUE TO MONITOR PT.
[2020-03-18 06:14] LABS: HEMATOCRIT 22.7 % (36-48); HEMOGLOBIN 7.5 g/dL (12.0-16.0); MEAN CORPUSCULAR HEMOGLOBIN 29 pg (27-31); MEAN CORPUSCULAR HGB CONC 33 g/dL (33-37); MEAN CORPUSCULAR VOLUME 86.3 fL (80-94); PLATELET COUNT (AUTO) 281 K/uL (140-450); RED BLOOD CELL COUNT(AUTO) 2.63 MIL/uL (4.20-5.40); RED CELL DISTRIBUTION WIDTH 16.7 % (11.6-13.7); WHITE BLOOD COUNT (AUTO) 21.2 K/uL (4.8-10.8)
[2020-03-18 06:43] LABS: ALBUMIN 1.5 g/dL (3.4-5.0); ANION GAP 14.8 (8-16); CARBON DIOXIDE 25.3 mmol/L (21-32); PHOSPHORUS 3.6 mg/dL (2.5-4.9); POTASSIUM 4.1 mmol/L (3.5-5.1); TOTAL BILIRUBIN 0.4 mg/dL (0.0-1.0)
[2020-03-18 06:50] LABS: CREATININE 4.5 mg/dL (0.6-1.3)
--- NOTE | 2020-03-18 07:02 | NUR ---
RECEIVED PT FROM PLASTIC MACHINE OPERATOR. PT IS ON DOCUMENTED SETTINGS. ETT IS SECURED AND INTACT. VENT CHECK DONE. TITRATED FIO2 TO 50%, PT TOLERATING WELL, NO SIGN OF DISTRESS. VENT PLUGGED INTO RED OUTLET, ALARMS ON AND FUNCTIONING, AMBU BAG AT BEDSIDE. WILL CONTINUE TO MONITOR.
--- NOTE | 2020-03-18 07:21 | NUR ---
ENDORSED PT TO DAY SHIFT RN FOR CONTINUITY OF CARE.
--- NOTE | 2020-03-18 07:22 | NUR ---
RECEIVED BEDSIDE REPORT FROM WHITING CAN WORKER NURSE, PT ON ETT TO VENT, ACPC FIO2 50%, PEEP 10, SATURATION 90%, RESP EVEN AND UNLABORED, PT NOT ON ANY SEDATION, AWAKE, UNABLE TO FOLLOW COMMANDS, BP 152/76, HR 114. IV TO L FA 20G, PICC LINE TO R UA, R CHEST TUNNEL CATH. OGT IN PLACE, RESIDUAL 65ML, PERRY CATH IN PLACE DRAINING URINE, RECTAL TUBE IN PLACE. PT ON RESTRAINTS, NO S/S OF INJURY. ALL SAFETY PRECAUTION MET, WILL CONTINUE TO MONITOR.
--- NOTE | 2020-03-18 08:00 | NUR ---
CALLED DOYLE CUMMINS AND NOTIFIED HER HD ORDER FOR TODAY
[2020-03-18] MEDS: ASCORBIC ACID 500 MG/5 ML ORASYR NG SCH (08:10)
[2020-03-18] MEDS: methylPREDNISolone SS 40 MG/ML VIAL IVP SCH ×2 (08:10→20:42)
[2020-03-18] MEDS: PANTOPRAZOLE 40 MG INJ VIAL IVP SCH ×2 (08:11→20:42)
[2020-03-18] MEDS: CHOLECALCIFEROL 1,000 IU TAB NG SCH (08:12)
[2020-03-18] MEDS: VIT-B COMP/VIT-C/FOLIC ACID 1 TAB PO SCH (08:12)
[2020-03-18] MEDS: METOPROLOL 25 MG TAB PO SCH ×2 (08:12→20:43)
[2020-03-18] MEDS: hydrALAZINE 10 MG TAB PO SCH ×3 (08:16→16:03)
[2020-03-18] MEDS: LOSARTAN 50 MG TAB PO SCH ×2 (08:16→20:47)
--- NOTE | 2020-03-18 08:40 | NUR ---
DUE MEDICATION ADMINISTERED, PT TOLERATED WELL, PERRY CARE DONE, PT RESTING, WILL CONTINUE TO MONITOR.
[2020-03-18] MEDS: INSULIN NPH HUMAN ISOPHANE 100 UNIT/ML VIAL SUBQ SCH ×2 (08:48→21:00)
--- NOTE | 2020-03-18 10:23 | NUR ---
PT HR 99, BP 168/75, PT AGITATED, FLACC 7, PAIN MEDICATION MORPHINE PER DR ORDER ADMINISTERED, PT TOLERATED WELL, NO DISTRESS NOTED, WILL CONTINUE TO MONITOR.
[2020-03-18 10:37] LABS: LYMPHOCYTES % (MANUAL) 7 % (20-46); MONOCYTES % (MANUAL) 5 % (5-12)
--- NOTE | 2020-03-18 10:40 | NUR ---
DIALYSIS STARTED, DIALYSIS NURSE AT BEDSIDE
--- NOTE | 2020-03-18 11:08 | NUR ---
PT RECEIVING DIALYSIS AT THIS TIME. VENT CHECK DONE. NURSE TITRATED FIO2 TO 60% DUE TO DESATURATION. PT CURRENT SPO2 READING 94%. WILL CONTINUE TO MONITOR.
[2020-03-18] MEDS: POLYVINYL ALCOHOL 1.4% OP 15 ML SOL OP SCH ×2 (12:05→16:03)
--- NOTE | 2020-03-18 14:00 | NUR ---
DIALYSIS COMPLETED, PER DIALYSIS NURSE 2.4L OUT. PT RESTING, NO DISTRESS NOTED, WILL CONTINUE TO MONITOR.
--- NOTE | 2020-03-18 15:30 | NUR ---
PT FLACC 7, MEDICATION PER DR ORDER GIVEN, PT TOLERATED WELL, WILL CONTINUE TO MONITOR.
[2020-03-18] MEDS ORDERED: VANCOMYCIN 500 MG in NACL 0.9% 100 ML IV SCH (17:00)
--- NOTE | 2020-03-18 17:20 | NUR ---
VENT CHECK DONE. PT REMAINS ON DOCUMENTED SETTINGS. ETT SECURED AND INTACT. VENT PLUGGED INTO RED OUTLET, ALARMS ON AND FUNCTIONING, AMBU BAG AT BEDSIDE.
--- NOTE | 2020-03-18 17:21 | NUR ---
MADE DR WOMACK AWARE PT HAS PVC, NO CHANGE IN ORDERS.
[2020-03-18] MEDS: MEROPENEM 500 MG in NACL 0.9% 50 ML IV SCH (18:34)
--- NOTE | 2020-03-18 19:14 | NUR ---
BEDSIDE REPORT RECEIVED FROM AM SHIFT RN. PT AWAKE, OPENS EYES, UNABLE TO FOLLOW COMMANDS, SINUS TACHYCARDIAC ON MONITOR. ETT TO VENT. AC PC MODE. FIO2 60%, RR 18, PEEP 10. IV SITE, JULIO C PICC, INTACT, PATENT, SALINE LOCKED. RIGHT UPPER CHEST TUNNELED HEMODIALYSIS, INTACT, SALINE LOCKED. R FOREARM 20 GUAGE, INTACT, PATENT, GOOD BLOOD RETURN. OGT TO FEEDING. 50ML RESIDUALS. PERRY CATHETER IN PLACE. RECTAL TUBE IN PLACE. SKIN NON INTACT, SEE WOUND ASSESSMENT. MINIMAL BLEEDING FROM ORAL AREA NOTED. PT ON BILAT SOFT WRIST RESTRAINTS. HOB 30 DEGREES. BED LOCKED IN LOWEST POSITION. SAFETY PRECAUTIONS IN PLACE. WILL CONTINUE TO MONITOR.
--- NOTE | 2020-03-18 19:34 | NUR ---
RECEIVED REPORT FROM AM SHIFT. PATIENT SEEN AND ASSESSED. PATIENT IS INTUBATED WITH ETT SIZE 7.5 AND SECURED WITH ANCHOR-FAST AT 21CM. AUSCULTATION REVEALS BILATERAL COARSE BREATH SOUNDS. NOTICED EQUAL CHEST RISE AND FALL. PATIENT ON VENT SETTINGS AC/PC 15, 18,+10, 60% WITH SPO2 OF 90%. VENT PLUGGED IN RED OUTLET, HOB > 30 DEGREES, AMBU BAG AT BEDSIDE, AND ALARMS SET AND AUDIBLE. PATIENT IS IN NO RESPIRATORY DISTRESS AT THIS TIME. MDI TX GIVEN ORDERED VIA IN LINE VENT, AND PATIENT TOLERATED WELL WITH NO ADVERSE REACTION. SUCTIONED SMALL AMOUNT OF PINK TINGE SECRETIONS FROM ETT AND SMALL BLOODY ORAL SECRETIONS. AIRWAY IS PATIENT. WILL CONTINUE TO MONITOR
[2020-03-18] MEDS: ATORVASTATIN 20 MG TAB PO SCH (20:43)
--- NOTE | 2020-03-18 21:55 | NUR ---
ADMINISTERED SCHEDULED MEDICATIONS, PT REPOSITIONED. SAFETY PRECAUTIONS IN PLACE. WILL CONTINUE TO MONITOR.
[2020-03-18] MEDS: hydrALAZINE 20 MG/ML VIAL IVP PRN (23:20)
--- NOTE | 2020-03-18 23:45 | NUR ---
BLOOD SUGAR 175, 2 UNITS OF HUMALOG GIVEN PRN. WILL CONTINUE TO MONITOR.
[2020-03-19] VITALS (22 sets, daily range): BP systolic 105–173; BP diastolic 52–98
[2020-03-19] MEDS: Z-GUARD PASTE TP SCH ×2 (01:10→12:10)
[2020-03-19] MEDS: ALBUTEROL HFA MDI 90 MCG/ACTUATION 8 GM INH SCH ×4 (01:17→19:00)
--- NOTE | 2020-03-19 01:32 | NUR ---
MDI TX GIVEN AT THIS TIME. PATIENT TOLERATED TX WELL WITH NO ADVERSE REACTION. WILL CONTINUE TO MONITOR PATIENT.
--- NOTE | 2020-03-19 03:50 | NUR ---
INSERTED NEW PERRY CATHETER. IN PLACE. WILL CONTINUE TO MONITOR.
[2020-03-19] MEDS: BLOOD GLUCOSE MONITORING 1 DEV DEV FS SCH ×6 (04:00→20:00)
--- NOTE | 2020-03-19 04:12 | NUR ---
PT CLEANED, REPOSITIONED, HOB 30 DEGREES. BED LOCKED IN LOWEST POSITION. WILL CONTINUE TO MONITOR.
[2020-03-19] MEDS: METOCLOPRAMIDE 10 MG/2 ML INJ VIAL IVP SCH ×3 (04:48→21:10)
[2020-03-19] MEDS: ALUMINUM HYDROXIDE 64 MG/ML BOTTLE PO SCH ×3 (04:48→21:08)
--- NOTE | 2020-03-19 06:30 | NUR ---
DR FRAIRE AT BEDSIDE, IN TO ASSESS PT.
[2020-03-19 06:44] LABS: ALBUMIN 1.7 g/dL (3.4-5.0); ANION GAP 13.9 (8-16); CARBON DIOXIDE 27.3 mmol/L (21-32); CREATININE 2.9 mg/dL (0.6-1.3); MAGNESIUM 1.7 mg/dL (1.8-2.4); PHOSPHORUS 2.7 mg/dL (2.5-4.9); POTASSIUM 3.2 mmol/L (3.5-5.1); TOTAL BILIRUBIN 0.4 mg/dL (0.0-1.0)
--- NOTE | 2020-03-19 07:00 | NUR ---
PT REMAINS ON DOCUMENTED SETTINGS. VENT CHECK DONE. ETT SECURED AND INTACT. NO SIGN OF DISTRESS AT THIS TIME, PT RESTING COMFORTABLY. VENT PLUGGED INTO RED OUTLET, ALARMS ON AND FUNCTIONING, AMBU BAG AT BEDSIDE. WILL CONTINUE TO MONITOR.
[2020-03-19 07:03] LABS: HEMATOCRIT 22.9 % (36-48); HEMOGLOBIN 7.6 g/dL (12.0-16.0); MEAN CORPUSCULAR HEMOGLOBIN 29 pg (27-31); MEAN CORPUSCULAR HGB CONC 33 g/dL (33-37); MEAN CORPUSCULAR VOLUME 86.5 fL (80-94); PLATELET COUNT (AUTO) 265 K/uL (140-450); RED BLOOD CELL COUNT(AUTO) 2.65 MIL/uL (4.20-5.40); RED CELL DISTRIBUTION WIDTH 16.1 % (11.6-13.7)
--- NOTE | 2020-03-19 07:15 | NUR ---
BEDSIDE REPORT GIVEN TO AM SHIFT RN FOR CONTINUITY OF CARE.
--- NOTE | 2020-03-19 07:26 | NUR ---
BEDSIDE REPORT GIVEN TO AM SHIFT RN FOR CONTINUITY OF CARE.
--- NOTE | 2020-03-19 07:30 | NUR ---
Received patient on bed with ett to vent with setting as follows :ACPC pinsp=15,rate=18,peep=6,fio2=50 percent.No distress noted.OGT to feeding.no residual noted.king to gravity.per report pt is anuric.nsr on the monitor.
[2020-03-19 07:50] LABS: WHITE BLOOD COUNT (AUTO) 27.8 K/uL (4.8-10.8)
[2020-03-19] MEDS: MAG SULF 2000 MG/WATER PREMIX 100 ML IV SCH ×2 (08:11→11:28)
[2020-03-19] MEDS: CHOLECALCIFEROL 1,000 IU TAB NG SCH (08:14)
[2020-03-19] MEDS: hydrALAZINE 10 MG TAB PO SCH ×3 (08:15→16:36)
[2020-03-19] MEDS: PANTOPRAZOLE 40 MG INJ VIAL IVP SCH ×2 (08:15→21:08)
[2020-03-19] MEDS: ASCORBIC ACID 500 MG/5 ML ORASYR NG SCH (08:15)
[2020-03-19] MEDS: methylPREDNISolone SS 40 MG/ML VIAL IVP SCH ×2 (08:16→21:08)
[2020-03-19] MEDS: LOSARTAN 50 MG TAB PO SCH ×2 (08:17→21:09)
[2020-03-19] MEDS: METOPROLOL 25 MG TAB PO SCH ×2 (08:18→21:09)
[2020-03-19] MEDS: VIT-B COMP/VIT-C/FOLIC ACID 1 TAB PO SCH (08:19)
[2020-03-19] MEDS: INSULIN LISPRO SLIDING SCALE 100 UNITS/ML VIAL SUBQ PRN (08:41)
[2020-03-19] MEDS: INSULIN NPH HUMAN ISOPHANE 100 UNIT/ML VIAL SUBQ SCH ×2 (08:42→21:00)
[2020-03-19] MEDS ORDERED: POTASSIUM CHLORIDE 40 MEQ, LIDOCAINE MPF 1% 25 MG in NACL 0.9% 250 ML IV SCH (09:00)
--- NOTE | 2020-03-19 09:00 | NUR ---
feeding on hold per dr wright for trache and peg today.
[2020-03-19] MEDS: POLYVINYL ALCOHOL 1.4% OP 15 ML SOL OP SCH ×3 (09:23→16:35)
[2020-03-19 09:27] LABS: EOSINOPHILS % (MANUAL) 3 % (0-4); LYMPHOCYTES % (MANUAL) 2 % (20-46); MONOCYTES % (MANUAL) 8 % (5-12)
--- NOTE | 2020-03-19 13:30 | NUR ---
pt pulled king catheter .No bleeding noted Dr Hill made aware.per md rodríguez put it back.pt anuric.
[2020-03-19] MEDS: DEXTROSE 50% 50 ML SYR IVP PRN (16:36)
--- NOTE | 2020-03-19 16:50 | NUR ---
PT REMAINS ON DOCUMENTED SETTINGS. ETT IS SECURED AND INTACT. VENT CHECK DONE. VENT PLUGGED INTO RED OUTLET, ALARMS ON AND FUNCTIONING, AMBU BAG AT BEDSIDE.
[2020-03-19] MEDS: MEROPENEM 500 MG in NACL 0.9% 50 ML IV SCH (17:45)
[2020-03-19] MEDS ORDERED: LIDOCAINE 1% 500 MG/50 ML VIAL ONE (18:03)
[2020-03-19] MEDS ORDERED: BUPIVACAINE-MPF 0.25% 30 ML VIAL INJ ONE (18:03)
--- NOTE | 2020-03-19 18:03 | NUR ---
REPEAT BS CHECK IS 116
[2020-03-19] MEDS ORDERED: SEVOFLURANE 250 ML BTL INH ONE (18:44)
[2020-03-19] MEDS ORDERED: PROPOFOL 200 MG/20 ML VIAL IV ONE (18:44)
[2020-03-19] MEDS ORDERED: METOCLOPRAMIDE 10 MG/2 ML INJ VIAL ONE (18:44)
[2020-03-19] MEDS ORDERED: ONDANSETRON 4 MG/2 ML VIAL ONE (18:44)
--- NOTE | 2020-03-19 18:45 | NUR ---
PICKED UP BY OR STAFF FOR TRACHEOSTOMY.REPORT GIVEN TO Konstantin Vides.
--- NOTE | 2020-03-19 19:00 | NUR ---
LAB CALLED AND PLASMA READY.CALLED RESIDENT TO GET CONSENT. Addendum: 03/19/20 at 9 by Denise Mike RN RN PLS DISREGARD ABOVE CHARTING FOR A DIFFERENT PATIENT.
--- NOTE | 2020-03-19 19:05 | NUR ---
REPORT GIVEN TO JESUS FOR CONTINUITY OF CARE
--- NOTE | 2020-03-19 19:30 | NUR ---
STARTED 20 GAUGE AT RIGHT FOREARM FOR PLASMA.PT TOLERATED WELL. Addendum: 03/19/20 at 1950 by Denise Mike RN RN PLS DISREGARD ABOVE NOTE IT IS FOR A DIFFERENT PATIENT.
--- NOTE | 2020-03-19 19:45 | NUR ---
PT BACK FROM OR. RECEIVED REPORT FROM OR NURSEJEEVAN. TRANSFERRED TO ICU BED 1 WITHOUT INCIDENT. PATIENT HAS EYES OPEN, CANNOT FOLLOW COMMANDS, CANNOT TRACK WITH EYES. PERRL, 3MM. PT NOW TRACH TO VENT-ACPC FI02 60% RATE 18 PEEP 6. SATURATIONS 89%, LUNG SOUNDS CLEAR, BREATHING IS EVEN AND UNLABORED, S1S2, SINUS RHYTHM ON MONITOR. JULIO C PICC IN PLACE, DRESSING DRY AND INTACT, TKO. RIGHT SUBCLAVIAN TUNNELED HD CATHETER IN PLACE. NEW GTUBE IN PLACE, NO FEEDING AT THIS TIME. ABDOMEN SOFT AND NONTENDER, BOWEL SOUNDS HYPOACTIVE. SKIN IS WARM AND DRY, AFEBRILE-97.5. MULTIPLE PRESSURE INJURIES, BILATERAL CHEEKS, LEFT CHEEK IS SCABBED. BOTH EARS SCABBED WITH VERSATEL DRESSINGS IN PLACE. LEFT SIDE LIP SCAB. SKIN TEAR TO SACRUM, OPTIFOAM DRESSING IN PLACE. SPECIALTY MATTRESS IN PLACE. RECTAL TUBE IN PLACE WITH BROWN LIQUID STOOL IN BAG. SOFT WRIST RESTRAINTS IN PLACE, SKIN INTACT, NO SIGNS OF INJURY, CIRCULATION WITHIN RANGE. DROPLET PRECAUTIONS IN PLACE. HOB 30 DEGREES, BED LOCKED AND IN LOWEST POSITION. WILL CONTINUE TO MONITOR.
--- NOTE | 2020-03-19 20:04 | NUR ---
RECEIVED PT FROM SURGERY ON DOCUMENTED SETTINGS. VENT PLUGGED INTO RED OUTLET. BMV AT BEDSIDE. NEWLY TRACH (SHILEY 8) SECURED AND INTACT. ALARMS SET.PATENT AIRWAY. PT IS IN NO DISTRESS. WILL CONT TO MONITOR
--- NOTE | 2020-03-19 21:00 | NUR ---
SUGAR CHECK COMPLETE, PATIENT HAS BEEN NPO FOR SURGERY, SUGAR 76, HELD INSULIN PER PARAMETER. GTUBE IN PLACE, NO RESIDUALS AT THIS TIME, APPLIED KEILY VALVE AND ADMINISTERED SCHEDULED MEDS. PER , CONTINUE TUBE FEEDING IN THE MORNING. PT TOLERATED ALL MEDS. JULIO C PICC IN PLACE, PATENT WITHOUT SYMPTOMS.FLACC 0. HOB 30 DEGREES. PT REPOSITIONED, RESTRAINTS SECURED WITH QUICK RELEASE KNOTS, SKIN INTACT, CIRCULATION WITHIN RANGE.
[2020-03-19] MEDS: ATORVASTATIN 20 MG TAB PO SCH (21:09)
--- NOTE | 2020-03-19 22:10 | NUR ---
pt josé miguel colón. no respiratory distress noted. will cont to monitor
[2020-03-20] VITALS (26 sets, daily range): BP systolic 108–165; BP diastolic 56–81
--- NOTE | 2020-03-20 00:10 | NUR ---
PROVIDED VAP ORAL CARE. TURNED AND POSITIONED TO OFFLOAD PRESSURE SITES. AFEBRILE. WILL CONTINUE TO MONITOR.
[2020-03-20] MEDS: ALBUTEROL HFA MDI 90 MCG/ACTUATION 8 GM INH SCH ×4 (01:00→19:47)
[2020-03-20] MEDS: MORPHINE SULFATE 4 MG/ML SYR IVP PRN ×4 (01:05→22:33)
--- NOTE | 2020-03-20 01:05 | NUR ---
BLOOD PRESSURE ELEVATED, PATIENT HAS EYES OPEN AND FACIAL GRIMACING NOTED. WITHDRAWS TO VAP CARE, MODERATE AMOUNT OF BLEEDING FROM MOUTH AND NOSE. PROVIDED SKIN CARE. TURNED AND REPOSITIONED PATIENT, TEARS AT EYES, PROVIDED IVP PRN MORPHINE FOR PAIN. BLOOD PRESSURE WENT BACK DOWN, SBP: 156. SIDERAILS UP, HOB 30 DEGREES, BED LOCKED AND IN LOWEST POSITION. WILL CONTINUE TO MONITOR.
[2020-03-20] MEDS: Z-GUARD PASTE TP SCH ×2 (01:20→13:00)
--- NOTE | 2020-03-20 02:00 | NUR ---
REASSESSED FOR PAIN, PATIENT APPEARS MORE COMFORTABLE. BP MORE STABLE, HEART RATE WNL, FLACC 0. PROVIDED MORE SKIN CARE AT FACE, STILL BLEEDING PERIODICALLY AT MOUTH. RELEASED RESTRAINTS TO REPOSITION. SKIN INTACT. PATIENT UNABLE TO FOLLOW COMMANDS. REAPPLIED RESTRAINTS. SAFETY MEASURES IN PLACE.
[2020-03-20] MEDS: BLOOD GLUCOSE MONITORING 1 DEV DEV FS SCH ×6 (04:13→20:00)
--- NOTE | 2020-03-20 04:13 | NUR ---
PROVIDED SPONGE BATH AND ORAL CARE. DRY AND FRESH BLOOD AT NOSE AND MOUTH. MAY HAVE A CUT/SORE ON TONGUE OR AT GUMS BUT PATIENT KEEPS SHUTTING MOUTH CLOSE AND MOVING HEAD AWAY WHEN CLEANING. CHANGED DRESSING AT SACRUM AND PROVIDED ZGUARD. MILKED RECTAL TUBE. PATIENT KEEPS GRABBING AT TUBES/TRACH. REAPPLIED RESTRAINTS. PATIENT DOES NOT FOLLOW COMMANDS, BUT ABLE TO NOD HEAD YES AND NO. GTUBE IN PLACE, SITE DRY AND INTACT. HOB 30 DEGREES, SAFETY MEASURES IN PLACE.
[2020-03-20] MEDS: ALUMINUM HYDROXIDE 64 MG/ML BOTTLE PO SCH ×3 (05:00→20:43)
[2020-03-20] MEDS: METOCLOPRAMIDE 10 MG/2 ML INJ VIAL IVP SCH ×3 (05:00→20:43)
--- NOTE | 2020-03-20 05:35 | NUR ---
PT REMAINS ON DOCUMENTED SETTINGS. NO CHANGES MADE TO THE VENTILATOR. TRACH IS SECURED AND INTACT. STITCHES STILL ON TRACH. PT IS IN NO DISTRESS. WILL CONT TO MONITOR
--- NOTE | 2020-03-20 06:00 | NUR ---
REPLACED RECTAL BAG, EMPTIED 500 ML OF DARK BROWN LOOSE STOOL. PATIENT REMAINS ON VENT SETTINGS START OF SHIFT, ACPC RATE 18 FI02 60% PEEP 6. JULIO C PICC IN PLACE, TKO WITH NS @ 10ML/HR. RECTAL BAG IN PLACE, INTACT. RESTRAINTS SECURED, FLACC 0. WILL ENDORSE TO DAYSHIFT.
[2020-03-20 06:22] LABS: HEMATOCRIT 23.2 % (36-48); HEMOGLOBIN 7.6 g/dL (12.0-16.0); MEAN CORPUSCULAR HEMOGLOBIN 29 pg (27-31); MEAN CORPUSCULAR HGB CONC 33 g/dL (33-37); MEAN CORPUSCULAR VOLUME 86.9 fL (80-94); PLATELET COUNT (AUTO) 249 K/uL (140-450); RED BLOOD CELL COUNT(AUTO) 2.66 MIL/uL (4.20-5.40); RED CELL DISTRIBUTION WIDTH 16.5 % (11.6-13.7)
[2020-03-20 07:00] LABS: ALBUMIN 1.9 g/dL (3.4-5.0); ANION GAP 15.1 (8-16); CARBON DIOXIDE 25.6 mmol/L (21-32); CREATININE 3.8 mg/dL (0.6-1.3); MAGNESIUM 3.6 mg/dL (1.8-2.4); PHOSPHORUS 4.6 mg/dL (2.5-4.9); POTASSIUM 4.7 mmol/L (3.5-5.1); TOTAL BILIRUBIN 0.5 mg/dL (0.0-1.0)
--- NOTE | 2020-03-20 07:15 | NUR ---
RECEIVED REPORT FROM NIGHT NURSE. PT IN BED ASLEEP, NO DISTRESS NOTED, FLACC 0. TRACH TO VENT ON AC/PC MODE 60% FIO2, R18 AND PEEP OF 6 LOWERED TO 5 BY RT ISA. SKIN NON INTACT, BILATERAL CHEEK WOUNDS, BILATERAL EAR WOUNDS AND OPEN SACRAL WOUND. R SUBCLAVIAN TUNNELED CATH IN PLACE, SCHEDULED FOR HD TODAY. R UA PICC LINE IN PLACE TKO PATENT AND ASYMPTOMATIC. GTUBE IN PLACE, FEEDING TO BE STARTED TODAY. RECTAL TUBE IN PLACE. RESTRAINTS IN PLACE WITH CURRENT ORDER. PERRY IN PLACE. DROPLET PRECAUTIONS FOR COVID POSITIVE IN PLACE. HR 85, O2 SAT95, BP 132/65. SAFETY MEASURES IN PLACE. WILL MONITOR CLOSELY
[2020-03-20 07:16] LABS: WHITE BLOOD COUNT (AUTO) 27.4 K/uL (4.8-10.8)
[2020-03-20 07:17] LABS: EOSINOPHILS % (MANUAL) 3 % (0-4); LYMPHOCYTES % (MANUAL) 3 % (20-46); MONOCYTES % (MANUAL) 4 % (5-12)
--- NOTE | 2020-03-20 07:26 | NUR ---
RECEIVED TRACH PT WITH A PORTEX 7 TRACH ON VENT. SETTINGS A/C PC Pinsp 15, R18, PEEP ADJUSTED TO 5cmH2O AND FIO2 TITRATED TO 55%. PT OPENS HER EYES. PT IS NOT IN ANY DISTRESS AT THIS TIME. TRACH IS SECURE WITH SUTURES AND AIRWAY IS PATENT. VENT IS PLUGGED INTO A RED OUTLET WITH ALARMS ON AND FUNCTIONING. WILL CONTINUE TO MONITOR.
[2020-03-20] MEDS: PANTOPRAZOLE 40 MG INJ VIAL IVP SCH ×2 (08:35→20:42)
[2020-03-20] MEDS: methylPREDNISolone SS 40 MG/ML VIAL IVP SCH ×2 (08:35→20:43)
[2020-03-20] MEDS: hydrALAZINE 10 MG TAB PO SCH ×3 (08:36→17:15)
[2020-03-20] MEDS: VIT-B COMP/VIT-C/FOLIC ACID 1 TAB PO SCH (08:37)
[2020-03-20] MEDS: CHOLECALCIFEROL 1,000 IU TAB NG SCH (08:37)
[2020-03-20] MEDS: POLYVINYL ALCOHOL 1.4% OP 15 ML SOL OP SCH ×3 (08:38→17:15)
[2020-03-20] MEDS: DEXTROSE 50% 50 ML SYR IVP PRN (08:51)
[2020-03-20] MEDS: INSULIN NPH HUMAN ISOPHANE 100 UNIT/ML VIAL SUBQ SCH ×2 (09:00→21:00)
[2020-03-20] MEDS: LOSARTAN 50 MG TAB PO SCH ×2 (09:00→20:43)
[2020-03-20] MEDS: METOPROLOL 25 MG TAB PO SCH ×2 (09:00→20:44)
[2020-03-20] MEDS ORDERED: DEXT 5% / NACL 0.9% 500 ML IV SCH (09:00)
--- NOTE | 2020-03-20 09:22 | NUR ---
SPO2 85-86%, RT MADE AWARE. PT IS TRACH TO VENT, ON FIO2 55% AT THIS TIME.
--- NOTE | 2020-03-20 09:23 | NUR ---
SPO2 DECREASED TO 85-87%. FIO2 INCREASED TO 65%. PT TACHYPNEIC AT THIS TIME AGITATED. NURSE AWARE OF PT STATUS. WILL CONTINUE TO MONITOR.
--- NOTE | 2020-03-20 09:28 | NUR ---
MEDICATIONS ADMINISTERED PER ORDER, PT TOLERATED WELL. GTUBE PATENT AND FLUSHED. ORAL CARE GIVEN, INLINE SUCTION PERFORMED. ASKED PT IF SHE HAS PAIN, SHE SHOOK HER HEAD SAYING NO. NPH INSULIN HELD DUE TO LOW BS OF 47, D50 GIVEN. WILL RECHECK. PT SCHEDULED FOR HD TODAY, LOSARTAN AND METOPROLOL HELD. PT REPOSITIONED. WILL MONITOR CLOSELY.
--- NOTE | 2020-03-20 10:04 | NUR ---
PT RECEIVING HEMODIALYSIS AT THIS TIME.
--- NOTE | 2020-03-20 11:48 | NUR ---
PT RECEIVING DIALYSIS AT THIS TIME NOT IN ANY DISTRESS. WILL CONTINUE TO MONITOR.
--- NOTE | 2020-03-20 12:14 | NUR ---
PT FINISHED HEMODIALYSIS, TOLERATED WELL. 2L OUTPUT.
--- NOTE | 2020-03-20 13:37 | NUR ---
PERFORMED VIDEOCHAT WITH PTS FAMILY CAM
--- NOTE | 2020-03-20 13:58 | NUR ---
03/20/20 RD FOLLOW UP COMPLETED PLEASE REFER TO NUTRITION ASSESSMENT UNDER CARE ACTIVITY FOR ESTIMATED NUTRITIONAL NEEDS. 1. RESTART TUBE FEEDINGS WHEN MEDICALLY APPROPRIATE WITH NEPRO 1.8 AT 40 ML/HR WITH PROSOURCE BID AND DIANE BID. -THIS WILL PROVIDE 960 ML OF VOLUME, 1848CALORIES, 107 GM OF PROTEIN, WHICH MEETS 100% OF ESTIMATED KCAL AND PROTEIN NEEDS 2. CONTINUE FREE WATER FLUSH OF 100 ML Q6H 3. CONTINUE NEPHRO-BRE 4. RD TO FOLLOW-UP 2-3 DAYS, HIGH RISK RITU OG, RD
--- NOTE | 2020-03-20 14:01 | NUR ---
PT REPOSITIONED AT THIS TIME. SACRAL DRESSING CHECKED, DRY AND INTACT, NOT CHANGED. TUBE FEEDING INCREASED FROM 10ML/H TO 20ML/H AFTER RESIDUAL CHECK OF 5ML.
--- NOTE | 2020-03-20 15:09 | NUR ---
PT SEEN BY DR MASON, INCREASED PEEP TO 10, WILL NOTIFY RT. SAYS PT IS IN DISTRESS, ORDERED TO GIVE 4MG PRN MORPHINE.
--- NOTE | 2020-03-20 15:10 | NUR ---
INFORMED BY NURSES THAT PEEP WAS INCREASED TO [id number] BY
--- NOTE | 2020-03-20 16:05 | NUR ---
VAP ORAL CARE GIVEN. TURNED AND REPOSITIONED. PRESSURE AREAS OFF LOADED. VSS.
--- NOTE | 2020-03-20 17:00 | NUR ---
RESTING COMFORTABLY NO EVIDENCE OF REPIRATORY DISTRESS NOTED GOOD CHEST RISE AIRWAY PATENT
[2020-03-20] MEDS: MEROPENEM 500 MG in NACL 0.9% 50 ML IV SCH (17:14)
--- NOTE | 2020-03-20 19:25 | NUR ---
REPORT GIVEN TO MULTICULTURAL MANAGER RN FOR CONTINUITY OF CARE. PT IS IN STABLE CONDITION.
--- NOTE | 2020-03-20 20:00 | NUR ---
PT TRACH (PORTEX 7) TO VENT. A/C PC FIO2 65%, P INSP 15, RATE 18, PEEP 10. NO DISTRESS OBSERVED. ORAL MUCOSA PINK AND MOIST. LUNG SOUNDS DIMINISHED. RESPIRATION EVEN AND UNLABORED. PULSES PALPABLE. OPENS EYES SPONTANEOUSLY. PRESSURE ULCERS OBSERVED ON BILATERAL CHEEKS (OPEN TO AIR), BILATERAL EARS(VERSATEL IN PLACE) AND SACROCOCCYX(ZGUARD/OPTIFOAM). PT HAS ACCESSES ON THE RIGHT CHEST TUNNELLED CATHETER FOR DIALYSIS AND RIGHT UPPER ARM PICC LINE. RECTAL TUBE(FLEXISEAL) IN PLACE DRAINING TO GRAVITY. G-TUBE IN PLACE, AUSCULTATED, POSITIVE PLACEMENT. 10MLS RESIDUALS. ON NEPRO 30 MLS/HR WITH FWF OF 100MLS/6HR. BILATERAL SOFT WRIST RESTRAINTS ON WITH NO SIGNS OF WRIST INJURIES. DROPLET PRECAUTION MAINTAINED. HOB 30 DEGREES, BED IN LOWEST POSITION, SIDE RAILS UP. WILL CONTINUE TO MONITOR PT.
--- NOTE | 2020-03-20 20:11 | NUR ---
RECEIVED PT ON DOCUMENTED SETTINGS. VENT PLUGGED INTO RED OUTLET. BMV AT BEDSIDE. TRACH SECURED AND INTACT. PT IS IN NO DISTRESS. SX SMALL AMOUNT OF THIN RED SECRETION. PT IS IN NO DISTRESS. WILL CONT TO MONITOR
[2020-03-20] MEDS: ATORVASTATIN 20 MG TAB PO SCH (20:43)
--- NOTE | 2020-03-20 21:00 | NUR ---
PT WAS TURNED AND REPOSITIONED. ORAL CARE, GLORY CARE DONE. WILL CONTINUE TO MONITOR.
--- NOTE | 2020-03-20 22:30 | NUR ---
PT TOLERATING FEEDING WELL. INCREASED FEEDING RATE TO 40 MLS/HR ( GOAL RATE). NO SIGNS OF DISTRESS OBSERVED.
--- NOTE | 2020-03-20 23:30 | NUR ---
PT TEMP 99.8, REMOVED EXTRA BLANKET. WET TOWEL APPLIED TO FOREHEAD AND GROIN AREA. TURNED AND REPOSITIONED. WILL CONTINUE TO MONITOR.
[2020-03-21] VITALS (21 sets, daily range): BP systolic 124–169; BP diastolic 57–87
[2020-03-21] MEDS: ALBUTEROL HFA MDI 90 MCG/ACTUATION 8 GM INH SCH ×4 (00:51→19:30)
--- NOTE | 2020-03-21 01:00 | NUR ---
LATEST TEMP OF 98.1. NO SIGNS DISTRESS OBSERVED. PT AWAKENS TO NAME AND SHAKING. WILL CONTINUE TO MONITOR.
[2020-03-21] MEDS: Z-GUARD PASTE TP SCH ×2 (01:55→12:18)
--- NOTE | 2020-03-21 03:00 | NUR ---
PT WAS TURNED AND REPOSITIONED. NO DISTRESS OBSERVED. ORAL CARE DONE. WILL CONTINUE TO MONITOR.
[2020-03-21] MEDS: INSULIN LISPRO SLIDING SCALE 100 UNITS/ML VIAL SUBQ PRN ×4 (04:00→14:37)
[2020-03-21] MEDS: BLOOD GLUCOSE MONITORING 1 DEV DEV FS SCH ×6 (04:43→20:51)
[2020-03-21] MEDS: MORPHINE SULFATE 4 MG/ML SYR IVP PRN ×2 (04:44→09:48)
[2020-03-21] MEDS: ALUMINUM HYDROXIDE 64 MG/ML BOTTLE PO SCH ×3 (04:44→20:06)
[2020-03-21] MEDS: METOCLOPRAMIDE 10 MG/2 ML INJ VIAL IVP SCH ×3 (04:44→20:05)
--- NOTE | 2020-03-21 05:26 | NUR ---
PT REMAINS ON DOCUMENTED SETTINGS. TITRATE FIO2 FROM 80% TO 70%. TRACH SECURED AND INTACT. SUTURES STILL AROUND TRACH. PLACED FRESH GAUZE AROUND STOMA. PT HAS A PATENT AIRWAY. NO DISTRESS NOTED. WILL CONT TO MONITOR
--- NOTE | 2020-03-21 06:15 | NUR ---
SPONGE BATH, GLORY CARE, ORAL CARE DONE. RECTAL TUBE INTACT, PATENT AND DRAINING TO GRAVITY. TURNED AND REPOSITIONED. TOLERATING FEEDING WELL. WILL CONTINUE TO MONITOR.
[2020-03-21 06:36] LABS: BASOPHILS # (AUTO) 0.1 K/uL (0.00-0.22); BASOPHILS % (AUTO) 0.2 % (0.0-2.0); EOSINOPHILS % (AUTO) 0.2 % (0.0-4.0); HEMATOCRIT 21.4 % (36-48); HEMOGLOBIN 7.1 g/dL (12.0-16.0); LYMPHOCYTES # (AUTO) 0.5 K/uL (2.5-16.5); LYMPHOCYTES % (AUTO) 2.3 % (20.5-51.1); MEAN CORPUSCULAR HEMOGLOBIN 29 pg (27-31); MEAN CORPUSCULAR HGB CONC 33 g/dL (33-37); MEAN CORPUSCULAR VOLUME 87.7 fL (80-94); MONOCYTES # (AUTO) 1.1 K/uL (0.8-1.0); MONOCYTES % (AUTO) 4.8 % (1.7-9.3); NEUTROPHILS # (AUTO) 21.5 K/uL (1.8-7.7); NEUTROPHILS % (AUTO) 92.5 % (42.2-75.2); PLATELET COUNT (AUTO) 186 K/uL (140-450); RED BLOOD CELL COUNT(AUTO) 2.44 MIL/uL (4.20-5.40); RED CELL DISTRIBUTION WIDTH 16.7 % (11.6-13.7); WHITE BLOOD COUNT (AUTO) 23.2 K/uL (4.8-10.8)
[2020-03-21 06:40] LABS: ALBUMIN 1.8 g/dL (3.4-5.0); ANION GAP 13.2 (8-16); CARBON DIOXIDE 27.5 mmol/L (21-32); CREATININE 2.6 mg/dL (0.6-1.3); MAGNESIUM 2.2 mg/dL (1.8-2.4); PHOSPHORUS 4.4 mg/dL (2.5-4.9); POTASSIUM 3.7 mmol/L (3.5-5.1); TOTAL BILIRUBIN 0.5 mg/dL (0.0-1.0)
--- NOTE | 2020-03-21 07:26 | NUR ---
BEDSIDE REPORT RECEIVED FROM LOFT WORKER HEAD NURSE, PT AWAKE, RESP WITH TRACH TO VENT WITH SETTING OF ACPC FIO2 70%, RR 18, PEEP 10, PT SLIGHTLY LABORED, TACHYPNEAC AT 30, ON ON SQUAD LEADER HR 108, RR 28, BP 146/74, O2SAT 96%, SKIN DRY COLOR WNL, SUBCLIAVIAN R UPPER CHEST, R UA PICC LINE, SITES WNL, PEG TUBE IN PLACE, FEEDING NEPRO AT 40ML/HR, FWF 100./6HR, RECTAL TUBE IN PLACE, POC REVIEWED, ALL SAFETY MEASURES IN PLACE, WILL CONTINUE TO MONITOR.
--- NOTE | 2020-03-21 07:28 | NUR ---
ENDORSED PT TO DAY SHIFT RN FOR CONTINUITY OF CARE.
--- NOTE | 2020-03-21 07:31 | NUR ---
DR ALCALA AT BEDSIDE
[2020-03-21] MEDS: PANTOPRAZOLE 40 MG INJ VIAL IVP SCH ×2 (08:17→20:07)
[2020-03-21] MEDS: VIT-B COMP/VIT-C/FOLIC ACID 1 TAB PO SCH (08:17)
[2020-03-21] MEDS: methylPREDNISolone SS 40 MG/ML VIAL IVP SCH ×2 (08:18→20:06)
[2020-03-21] MEDS: hydrALAZINE 10 MG TAB PO SCH ×3 (08:18→17:00)
[2020-03-21] MEDS: CHOLECALCIFEROL 1,000 IU TAB NG SCH (08:18)
[2020-03-21] MEDS: LOSARTAN 50 MG TAB PO SCH ×2 (08:18→20:05)
[2020-03-21] MEDS: POLYVINYL ALCOHOL 1.4% OP 15 ML SOL OP SCH ×3 (08:19→17:00)
[2020-03-21] MEDS ORDERED: SILVER NITRATE APPLICATOR 1 EA SWAB TP SCH (09:00)
--- NOTE | 2020-03-21 09:19 | NUR ---
PT TACHYPNEIC AT THIS TIME. SPO2 98%. WILL CONTINUE TO MONITOR.
[2020-03-21] MEDS: INSULIN NPH HUMAN ISOPHANE 100 UNIT/ML VIAL SUBQ SCH ×2 (09:41→20:51)
[2020-03-21] MEDS: SILVER SULFADIAZINE 1% 50 GM JAR TP SCH (09:43)
--- NOTE | 2020-03-21 09:48 | NUR ---
PT RESTLESS, SHAKING FOOT, INCREASED HR AND RR, UNRESOLVED AFTER COMFORT CARE, BEDBATH, PERICARE, REPOSITIONING. PRN MORPHINE 4MG GIVEN IVP, AM MEDS GIVEN.
[2020-03-21] MEDS: METOPROLOL 25 MG TAB PO SCH ×2 (09:59→20:07)
--- NOTE | 2020-03-21 11:55 | NUR ---
DR ORR AT BEDSIDE, REPORTED OF INCREASED RR EVEN AFTER MORPHINE, VERSED DRIP ORDERED.
[2020-03-21] MEDS ORDERED: VANCOMYCIN 500 MG in DEXTROSE 5% 100 ML IV SCH (12:00)
[2020-03-21] MEDS ORDERED: MIDAZOLAM MDV 50 MG in NACL 0.9% 40 ML IV PRN (12:45)
--- NOTE | 2020-03-21 12:55 | NUR ---
PER REQUESTED CALLED PT'S FAMILY CAM AND HERRERA TO "FACETIME" WITH PATIENT, PHONE HELD IN FRONT OF PT'S FACE ON SPEAKER, FAMILY IS ABLE TO TALK TO PT, PT NODS AND SHAKES HEAD TO RESPOND TO SOME QUESTIONS.
--- NOTE | 2020-03-21 14:05 | NUR ---
PT RESTING WITH EYES CLOSED, PT NOW APPEARS COMFORTABLE WITH RR 18-20, HR 70, BODY RELAXED, FLACC 0 AT THIS TIME.
--- NOTE | 2020-03-21 15:59 | NUR ---
RECEIVED TRACH PT WITH A PORTEX 7 TRACH ON VENT. SETTINGS A/C PC Pinsp 15, R18, PEEP 41lyM8S AND FIO2 TITRATED TO 65%. PT OPENS HER EYES. PT IS NOT IN ANY DISTRESS AT THIS TIME. TRACH IS SECURE WITH SUTURES AND AIRWAY IS PATENT. VENT IS PLUGGED INTO A RED OUTLET WITH ALARMS ON AND FUNCTIONING. WILL CONTINUE TO MONITOR.
--- NOTE | 2020-03-21 17:20 | NUR ---
REPOSITIONED, DIANE/PROSOURCE GIVEN.
--- NOTE | 2020-03-21 18:00 | NUR ---
PT NOT IN ANY DISTRESS AT THIS TIME. VENT ALARMS REMAIN ON AND FUNCTIONING. TRACH IS SECURE WITH A PATENT AIRWAY.
[2020-03-21] MEDS: MEROPENEM 500 MG in NACL 0.9% 50 ML IV SCH (18:10)
--- NOTE | 2020-03-21 19:15 | NUR ---
BEDSIDE REPORT RECEIVED AM SHIFT RN. PT OPENS EYES, FOLLOWS COMMANDS. TRACH TO VENT. AC/PC MODE. FIO2 55%, RATE 18, PEEP 10. LUNG SOUNDS CLEAR. IV SITE, RIGHT UPPER CHEST TUNNELED CATH, INTACT AND PATENT. PICC LINE JULIO C, INTACT, PATENT. GTUBE TO FEEDING. 130 RESIDUALS NOTED. RECTAL TUBE IN PLACE. BILAT WRIST RESTRAINTS, NO SKIN BREAKDOWN NOTED. SKIN WARM AND DRY. AFEBRILE. SKIN NON INTACT, SEE WOUND ASSESSMENT. SAFETY PRECAUTIONS IN PLACE. HOB 30 DEGREES. BED LOCKED IN LOWEST POSITION. WILL CONTINUE TO MONITOR.
--- NOTE | 2020-03-21 19:37 | NUR ---
RECEIVED PT ON DOCUMENTED SETTINGS. VENT PLUGGED INTO RED OUTLET. BMV AT BEDSIDE. ALARMS SET. TRACH SECURED AND INTACT. PT IS ALERT AND ORIENTATED. PT IS TACHYPNEIC. PT IS IN NO DISTRESS. WILL CONT TO MONITOR
--- NOTE | 2020-03-21 20:00 | NUR ---
BLOOD SUGAR, 102. HUMULIN N NON ADMINISTERED. PT ALSO DESATURATING 86%, FIO2 INCREASED TO 65%, DR VASQUEZ AWARE. RT AWARE. WILL CONTINUE TO MONITOR.
--- NOTE | 2020-03-21 20:01 | NUR ---
PER RN. PT SATURATION DROPPED TO 86%. INCREASED FI02 TO 65%. PT SATURATION IS NOW 94%. WILL CONT TO MONITOR
[2020-03-21] MEDS: ATORVASTATIN 20 MG TAB PO SCH (20:07)
--- NOTE | 2020-03-21 22:16 | NUR ---
PT REPOSITIONED, TRACH TO VENT. RESPIRATIONS EVEN AND UNLABORED. CHEST RISE IS SYMMETRICAL. SAFETY PRECAUTIONS IN PLACE. HOB 30 DEGREES. BED LOCKED IN LOWEST POSITION. WILL CONTINUE TO MONITOR.
[2020-03-22] VITALS (24 sets, daily range): BP systolic 108–158; BP diastolic 53–100
--- NOTE | 2020-03-22 | NUR ---
RESIDUALS FROM GTUBE WAS 150ML. FEEDING HELD. DR VASQUEZ AWARE. WILL CONTINUE TO MONITOR.
[2020-03-22] MEDS: ALBUTEROL HFA MDI 90 MCG/ACTUATION 8 GM INH SCH ×4 (00:03→19:59)
[2020-03-22] MEDS: Z-GUARD PASTE TP SCH ×2 (00:05→13:50)
--- NOTE | 2020-03-22 02:18 | NUR ---
PT FACETIMED WITH FAMILY, ABLE TO FOLLOW SIMPLE COMMANDS. TRYING MOUTH WORDS. WILL CONTINUE TO MONITOR.
[2020-03-22] MEDS: BLOOD GLUCOSE MONITORING 1 DEV DEV FS SCH ×6 (04:00→20:32)
[2020-03-22] MEDS: INSULIN LISPRO SLIDING SCALE 100 UNITS/ML VIAL SUBQ PRN ×5 (04:01→20:50)
--- NOTE | 2020-03-22 04:30 | NUR ---
FEEDING CURRENTLY OFF. RESIDUALS FROM GTUBE IS 80ML. HELD FEEDING. WILL CONTINUE TO MONITOR.
[2020-03-22] MEDS: ALUMINUM HYDROXIDE 64 MG/ML BOTTLE PO SCH ×3 (04:50→20:32)
[2020-03-22] MEDS: METOCLOPRAMIDE 10 MG/2 ML INJ VIAL IVP SCH ×3 (04:50→20:31)
--- NOTE | 2020-03-22 04:51 | NUR ---
CLEANED PT, REPOSITIONED. HOB 30 DEGREES. BED LOCKED LOWEST POSITION. SAFETY PRECAUTIONS IN PLACE. WILL CONTINUE TO MONITOR.
--- NOTE | 2020-03-22 05:16 | NUR ---
PT REMAINS ON DOCUMENTED SETTINGS. TRACH REMAINS SECURED AND INTACT WITH PATENT SET. ALARMS FUNCTIONAL. WILL CONT TO MONITOR
--- NOTE | 2020-03-22 06:00 | NUR ---
RESIDUALS 30ML. FEEDING RESTARTED. WILL CONTINUE TO MONITOR.
[2020-03-22 06:21] LABS: MAGNESIUM 2.5 mg/dL (1.8-2.4); PHOSPHORUS 6.5 mg/dL (2.5-4.9)
[2020-03-22 06:22] LABS: ANION GAP 17.1 (8-16); CARBON DIOXIDE 24.9 mmol/L (21-32); CREATININE 3.9 mg/dL (0.6-1.3)
[2020-03-22 06:41] LABS: BASOPHILS # (AUTO) 0.1 K/uL (0.00-0.22); BASOPHILS % (AUTO) 0.3 % (0.0-2.0); EOSINOPHILS % (AUTO) 0.1 % (0.0-4.0); HEMATOCRIT 20.9 % (36-48); LYMPHOCYTES # (AUTO) 0.7 K/uL (2.5-16.5); LYMPHOCYTES % (AUTO) 3.3 % (20.5-51.1); MEAN CORPUSCULAR HEMOGLOBIN 29 pg (27-31); MEAN CORPUSCULAR HGB CONC 33 g/dL (33-37); MEAN CORPUSCULAR VOLUME 87.9 fL (80-94); MONOCYTES # (AUTO) 0.7 K/uL (0.8-1.0); MONOCYTES % (AUTO) 3.3 % (1.7-9.3); NEUTROPHILS # (AUTO) 19.6 K/uL (1.8-7.7); RED BLOOD CELL COUNT(AUTO) 2.37 MIL/uL (4.20-5.40); RED CELL DISTRIBUTION WIDTH 16.7 % (11.6-13.7); WHITE BLOOD COUNT (AUTO) 21.1 K/uL (4.8-10.8)
--- NOTE | 2020-03-22 07:10 | NUR ---
BEDSIDE REPORT GIVEN TO AM SHIFT RN FOR CONTINUITY OF CARE.
--- NOTE | 2020-03-22 07:19 | NUR ---
RECEIVED TRACH PT WITH A PORTEX 7 TRACH ON VENT. SETTINGS A/C PC Pinsp 15, R18, PEEP 10 AND FIO2 TITRATED TO 60%. PT IS AWAKE NOT IN ANY DISTRESS AT THIS TIME. TRACH IS SECURE WITH SUTURES INTACT. AIRWAY IS PATENT. VENT IS PLUGGED INTO A RED OUTLET WITH ALARMS ON AND FUNCTIONING. WILL CONTINUE TO MONITOR.
--- NOTE | 2020-03-22 07:20 | NUR ---
BEDSIDE REPORT RECEIVED FROM INTEGRITY DIRECTOR NURSE, PT AWAKE ALERT FOLLOWS COMMANDS, RESP WITH TRACH TO VENT WITH SETTING OF ACPC FIO2 65%, RR 18, PEEP 10, RESP UNLABORED,RR AT 20, ON ON DOCUMENTATION ENGINEER HR 82, RR 20, BP 133/68, O2SAT 100%, SKIN DRY COLOR WNL, SUBCLIAVIAN R UPPER CHEST, R UA PICC LINE, SITES WNL, PEG TUBE IN PLACE, FEEDING NEPRO AT 40ML/HR, FWF 100./6HR, RECTAL TUBE IN PLACE, POC REVIEWED, ALL SAFETY MEASURES IN PLACE, WILL CONTINUE TO MONITOR.
[2020-03-22 07:24] LABS: PLATELET COUNT (AUTO) 163 K/uL (140-450)
[2020-03-22] MEDS: LOSARTAN 50 MG TAB PO SCH ×2 (08:06→20:30)
[2020-03-22] MEDS: METOPROLOL 25 MG TAB PO SCH ×2 (08:06→20:31)
[2020-03-22] MEDS: CHOLECALCIFEROL 1,000 IU TAB NG SCH (08:06)
[2020-03-22] MEDS: VIT-B COMP/VIT-C/FOLIC ACID 1 TAB PO SCH (08:06)
[2020-03-22] MEDS: PANTOPRAZOLE 40 MG INJ VIAL IVP SCH ×2 (08:06→20:30)
[2020-03-22] MEDS: POLYVINYL ALCOHOL 1.4% OP 15 ML SOL OP SCH ×3 (08:07→16:22)
[2020-03-22] MEDS: MORPHINE SULFATE 4 MG/ML SYR IVP PRN ×2 (08:07→17:06)
[2020-03-22] MEDS: hydrALAZINE 10 MG TAB PO SCH ×3 (08:07→16:21)
[2020-03-22] MEDS: methylPREDNISolone SS 40 MG/ML VIAL IVP SCH ×2 (08:08→20:31)
[2020-03-22] MEDS: SILVER SULFADIAZINE 1% 50 GM JAR TP SCH (08:59)
[2020-03-22] MEDS: INSULIN NPH HUMAN ISOPHANE 100 UNIT/ML VIAL SUBQ SCH ×2 (08:59→21:00)
--- NOTE | 2020-03-22 09:00 | NUR ---
DUE MEDICATION ADMINISTERED, PT BLOOD SUGAR 181, INSULIN PER PROTOCOL ADMINISTERED, WOUND CARE DONE, PT TOLERATED WELL, NO DISTRESS NOTED, CALL LIGHT WITHIN REACH, WILL CONTINUE TO MONITOR.
--- NOTE | 2020-03-22 10:30 | NUR ---
DIALYSIS STARTED, PT RESTING, DIALYSIS NURSE AT BEDSIDE, WILL CONTINUE TO MONITOR.
--- NOTE | 2020-03-22 11:57 | NUR ---
PT RECEIVING DIALYSIS AT THIS TIME. PT NOT IN ANY DISTRESS. WILL CONTINUE TO MONITOR.
--- NOTE | 2020-03-22 13:10 | NUR ---
DIALYSIS COMPLETED, PT TOLERATED WELL, 2.1L OUT PER DIALYSIS NURSE, NO DISTRESS NOTED, WILL CONTINUE TO MONITOR.
--- NOTE | 2020-03-22 13:30 | NUR ---
DUE MEDICATION ADMINISTERED, PT TOLERATED WELL, NO DISTRESS NOTED, DIANE GIVEN, PT TOLERATED WELL, WILL CONTINUE TO MONITOR.
[2020-03-22] MEDS: LORazepam 0.5 MG TAB GT PRN (14:09)
--- NOTE | 2020-03-22 14:50 | NUR ---
DIALYSIS STARTED, PT RESTING, DIALYSIS NURSE AT BEDSIDE, WILL CONTINUE TO MONITOR. Addendum: 03/22/20 at 1716 by Jyotsna Allen RN WRONG TIME
--- NOTE | 2020-03-22 16:30 | NUR ---
DUE MEDICATION ADMINISTERED, PT TOLERATED WELL, PROSOURCE GIVEN, PT RESTING, CALL LIGHT WITHIN REACH, WILL CONTINUE TO MONITOR.
--- NOTE | 2020-03-22 17:06 | NUR ---
PT FLACC 8, PAIN MEDICATION ADMINISTERED, PT TOLERATED WELL, WILL CONTINUE TO MONITOR.
--- NOTE | 2020-03-22 17:30 | NUR ---
FIO2 INCREASED TO 65% DUE TO DESATURATION. PT TACHYPNEIC/ANXIOUS AT THIS TIME. VENT ALARMS ON AND FUNCTIONING. TRACH IS SECURE WITH A PATENT AIRWAY.
[2020-03-22] MEDS: MEROPENEM 500 MG in NACL 0.9% 50 ML IV SCH (18:21)
--- NOTE | 2020-03-22 19:16 | NUR ---
ENDORSED PT TO TERMINAL OPERATIONS MANAGER RN, PT RESTING
--- NOTE | 2020-03-22 19:30 | NUR ---
RECEIVED REPORT FROM DAYSHIFT NURSE AT PATIENTS BEDSIDE. PT AWAKE. TRACH TO VENT, ACPC FI02 65%, RATE 18, PEEP 10. BREATHING IS EVEN AND UNLABORED. LUNG SOUNDS CLEAR. NO COUGH OR DISTRESS NOTED. SATURATIONS 98%. S1S2, HR 85 BPM. BP WNL. SKIN WARM AND DRY, AFEBRILE. NOT INTACT. PRESSURE INJURIES TO BILATERAL CHEEKS, SILVERDINE OINTMENT IN PLACE. SMALL OPEN WOUND WITH DRIED BLOOD AT NOSE AND LIP. SMALL SKIN TEARS/OPEN WOUNDS AT SACRUM/BUTTOCKS. OPTIFOAM DRESSINGS IN PLACE. GTUBE IN PLACE, CONNECTED TO TUBE FEEDING, NEPRO AT 40ML/HR. 100 ML FWF Q6H. ABDOMEN SOFT AND NONTENDER, ACTIVE BOWEL SOUNDS. RECTAL BAG IN PLACE. JULIO C PICC IN PLACE, ASYMPTOMATIC, FLUSHED WITHOUT SYMPTOMS. RIGHT UPPER CHEST TUNNELED CATH FOR HD IN PLACE. BILATERAL SOFT WRIST RESTRAINTS IN PLACE, NO INJURIES NOTED, SKIN INTACT. HOB 30 DEGREES, BED LOCKED AND IN LOWEST POSITION. WILL CONTINUE TO MONITOR.
--- NOTE | 2020-03-22 19:45 | NUR ---
RECEIVED REPORT FROM AM SHIFT. PATIENT SEEN AND ASSESSED. PATIENT TRACH TO VENT WITH PORTEX SIZE 7 AND SECURED WITH TRACH TIE. AUSCULTATION REVEALS BILATERAL RALES BREATH SOUNDS. NOTICED ADEQUATE BILATERAL CHEST RISE AND FALL. PATIENT ON VENT SETTINGS AC/PC 15, 18, +10, 65% WITH SPO2 OF 98%. VENT PLUGGED IN RED OUTLET, HOB > 30 DEGREES, AMBU BAG AT BEDSIDE, AND ALARMS SET AND AUDIBLE. PATIENT IS IN NO APPARENT RESPIRATORY DISTRESS AT THIS TIME. MDI TX GIVEN ORDERED VIA INLINE AND PATIENT TOLERATED WELL WITH NO ADVERSE REACTION. SUCTION PINK TINGE SECRETIONS FROM ETT. AIRWAY IS PATIENT. WILL CONTINUE TO MONITOR PATIENT.
[2020-03-22] MEDS: ATORVASTATIN 20 MG TAB PO SCH (20:30)
--- NOTE | 2020-03-22 20:32 | NUR ---
BLOOD SUGAR 189; PHONE CALL TO DR VASQUEZ; ORDERED TO GIVE THE SLIDING SCALE AND HOLD HUMULIN N DOSE AT THIS TIME(50UNITS)
--- NOTE | 2020-03-22 20:50 | NUR ---
PER RESIDENT MD, HOLD SCHEDULED HUMULIN, OK TO COVER PER SLIDING SCALE. BLOOD SUGAR, 189, CARRIED OUT.
--- NOTE | 2020-03-22 21:40 | NUR ---
GTUBE RESIDUALS 65ML. ADMINISTERED MEDS. PROVIDED ORAL CARE. CLEANED UP OLD DRIED BLOOD AT NOSE AND LIPS. PATIENT STILL BLEEDING SLIGHTLY FROM NOSE AND INSIDE OF MOUTH. ASKED PATIENT IF SHE HAD PAIN, PATIENT NODDED NO. ABLE TO TRACK WITH EYES/EYE CONTACT. TURNED AND REPOSITIONED, OFFLOADED PRESSURE SITES. HOB 30 DEGREES, BED LOCKED AND IN LOWEST POSITION. WILL CONTINUE TO MONITOR.
[2020-03-23] VITALS (24 sets, daily range): BP systolic 136–182; BP diastolic 60–85
--- NOTE | 2020-03-23 00:05 | NUR ---
GASTRIC RESIDUALS 85ML. CONTINUE TUBE FEEDING AT 40ML/HR. BLOOD SUGAR 333, COVERED PER SLIDING SCALE. RELEASED RESTRAINTS, PATIENT IS WAVING HANDS GESTURING SHE IS HOT. REMOVED EXTRA BLANKETS AND APPLIED COLD WET TOWEL TO FOREHEAD. TEMPERATURE WITHIN RANGE-98.3. PROVIDED ORAL CARE. STILL SLIGHT BRIGHT RED BLEEDING. REPOSITIONED TO OFFLOAD PRESSURE AREAS. REAPPLIED RESTRAINTS. SAFETY MEASURES IN PLACE.
[2020-03-23] MEDS: BLOOD GLUCOSE MONITORING 1 DEV DEV FS SCH ×6 (00:35→20:47)
[2020-03-23] MEDS: INSULIN LISPRO SLIDING SCALE 100 UNITS/ML VIAL SUBQ PRN ×6 (00:36→21:00)
[2020-03-23] MEDS: ALBUTEROL HFA MDI 90 MCG/ACTUATION 8 GM INH SCH ×3 (01:14→19:27)
--- NOTE | 2020-03-23 01:35 | NUR ---
MDI TX GIVEN AT THIS TIME. PATIENT TOLERATED TX WELL WITH NO ADVERSE REACTION. FiO2 TITRATED TO 63% WITH SPO2 OF 98% WILL CONTINUE TO MONITOR.
[2020-03-23] MEDS: Z-GUARD PASTE TP SCH ×2 (02:15→12:16)
--- NOTE | 2020-03-23 04:10 | NUR ---
BLOOD SUGAR IS HIGH 383, GAVE 10 UNITS HUMALOG PER SLIDING SCALE. CHECKED RESIDUALS, PT TOLERATING WELL, RESIDUALS ONLY 40ML. PROVIDED ORAL CARE, STILL BLEEDING. BUT SCABS ARE OFF. TURNED AND POSITIONED, PT ASSISTS WITH TURNING, KNOWS HOW TO MOVE SIDE TO SIDE. SIDERAILS UP, HOB 30 DEGREES.
[2020-03-23] MEDS: ALUMINUM HYDROXIDE 64 MG/ML BOTTLE PO SCH ×3 (05:15→20:47)
[2020-03-23] MEDS: METOCLOPRAMIDE 10 MG/2 ML INJ VIAL IVP SCH ×3 (05:15→20:47)
[2020-03-23] MEDS: hydrALAZINE 20 MG/ML VIAL IVP PRN ×2 (05:20→23:40)
--- NOTE | 2020-03-23 05:20 | NUR ---
BLOOD PRESSURE HIGH, CHECKED 3 TIMES AND SBP ABOVE 160, GAVE PRN HYDRALAZINE 10MG IVP.
[2020-03-23 06:08] LABS: BASOPHILS % (AUTO) 0.1 % (0.0-2.0); HEMATOCRIT 20.6 % (36-48); LYMPHOCYTES # (AUTO) 0.5 K/uL (2.5-16.5); LYMPHOCYTES % (AUTO) 2.5 % (20.5-51.1); MEAN CORPUSCULAR HEMOGLOBIN 29 pg (27-31); MEAN CORPUSCULAR HGB CONC 33 g/dL (33-37); MEAN CORPUSCULAR VOLUME 88.8 fL (80-94); MONOCYTES # (AUTO) 0.5 K/uL (0.8-1.0); MONOCYTES % (AUTO) 2.3 % (1.7-9.3); NEUTROPHILS # (AUTO) 19.2 K/uL (1.8-7.7); NEUTROPHILS % (AUTO) 95.1 % (42.2-75.2); PLATELET COUNT (AUTO) 143 K/uL (140-450); RED BLOOD CELL COUNT(AUTO) 2.33 MIL/uL (4.20-5.40); RED CELL DISTRIBUTION WIDTH 16.6 % (11.6-13.7); WHITE BLOOD COUNT (AUTO) 20.2 K/uL (4.8-10.8)
[2020-03-23 06:14] LABS: ANION GAP 12.2 (8-16); CREATININE 2.8 mg/dL (0.6-1.3); POTASSIUM 3.2 mmol/L (3.5-5.1)
--- NOTE | 2020-03-23 06:20 | NUR ---
BLOOD PRESSURE IMPROVED, 136/61. PT SLIGHTLY TACHYCARDIC, HR: 101 BPM. CHECKED IN ON PATIENT AND PATIENT SAYING SHE IS HUNGRY. ORIENTED HER TO TUBE FEEDING. REPOSITIONED FOR COMFORT.
[2020-03-23 06:29] LABS: MAGNESIUM 1.9 mg/dL (1.8-2.4); PHOSPHORUS 4.5 mg/dL (2.5-4.9)
[2020-03-23 06:35] LABS: HEMOGLOBIN 6.8 g/dL (12.0-16.0)
--- NOTE | 2020-03-23 07:10 | NUR ---
RECEIVED TRACH PT WITH A PORTEX 7 TRACH ON VENT. SETTINGS A/C PC Pinsp 15, R18, PEEP 10 AND FIO2 TITRATED TO 55%. PT IS AWAKE NOT IN ANY DISTRESS AT THIS TIME. TRACH IS SECURE WITH SUTURES INTACT. AIRWAY IS PATENT. VENT IS PLUGGED INTO A RED OUTLET WITH ALARMS ON AND FUNCTIONING. WILL CONTINUE TO MONITOR.
--- NOTE | 2020-03-23 07:30 | NUR ---
RECEIVED CHANGE OF SHIFT REPORT FROM HEAD OF ETHICS AND COMPLIANCE NURSE. PT WAS FOUND LAYING ON BED W/ HOB AT 30 DEGREES. PT OPENS EYES TO VOICE. EYES PERRL 3MM. UNABLE TO FOLLOW SIMPLE COMMANDS. FROM PREVIOUS REPORTS, PT IS GUYANESE SPEAKING ONLY. PT HAS PROTEX 7 TRACH AND IS CONNECTED TO VENT. SETTINGS ARE A/EXECUTIVE SOUS CHEF FIO2 55% PINSP 18 RATE 18 TINSP 0.70 PEEP 10. LUNG SOUNDS ARE CLEAR THROUGHOUT, EQUAL RISE AND FALL OF CHEST. S1S2 HEARD. SR ON MONITOR. +2 RADIAL PULSES FELT. PT IS ON GTUBE FEEDING NEPRO AT 50 ML/HR W/ FWF 100 ML Q6HR. PT HAS RECTAL TUBE W/ STOOL UP TO 200 ML. PT HAS RIGHT CHEST WALL TUNNELED CATHETER AND JULIO C PICC. JULIO C IS ASYMPTOMATIC, PATENT AND INTACT. BED IS LOCKED, ROOM FREE FROM CLUTTER, WILL CONTINUE TO MONITOR.
[2020-03-23] MEDS: PANTOPRAZOLE 40 MG INJ VIAL IVP SCH ×2 (08:12→20:47)
[2020-03-23] MEDS: methylPREDNISolone SS 40 MG/ML VIAL IVP SCH (08:12)
[2020-03-23] MEDS: hydrALAZINE 10 MG TAB PO SCH ×3 (08:13→16:38)
[2020-03-23] MEDS: CHOLECALCIFEROL 1,000 IU TAB NG SCH (08:13)
[2020-03-23] MEDS: VIT-B COMP/VIT-C/FOLIC ACID 1 TAB PO SCH (08:13)
[2020-03-23] MEDS: METOPROLOL 25 MG TAB PO SCH ×2 (08:13→20:49)
[2020-03-23] MEDS: POLYVINYL ALCOHOL 1.4% OP 15 ML SOL OP SCH ×3 (08:14→16:38)
[2020-03-23] MEDS: LOSARTAN 50 MG TAB PO SCH ×2 (08:14→20:48)
[2020-03-23] MEDS: INSULIN NPH HUMAN ISOPHANE 100 UNIT/ML VIAL SUBQ SCH ×2 (09:00→20:59)
[2020-03-23] MEDS: SILVER SULFADIAZINE 1% 50 GM JAR TP SCH (09:00)
--- NOTE | 2020-03-23 12:00 | NUR ---
WOUND CARE NURSE AT BEDSIDE. PERFORMED WOUND CARE FOR PT W/ ASSISTANCE FROM PRIMARY NURSE. WILL CONTINUE TO MONITOR
--- NOTE | 2020-03-23 12:10 | NUR ---
VENT CHECK COMPLETED. PT SEEMS ANXIOUS AND IS TACHYPNEIC.WILL NOTIFY NURSE. WILL CONTINUE TO MONITOR.
--- NOTE | 2020-03-23 13:11 | NUR ---
AWAKE TOLERATING VENTILATOR SUPPORT WITHOUT COMPLICATIONS GOOD CHEST RISE AIRWAY PATENT PATIENT PREVIOUSLY SUCTIONED BY RENAN/RN FOR MODERATE THICK YELLOW WITH BLOOD TINGE SECRETIONS
--- NOTE | 2020-03-23 13:15 | NUR ---
STARTED RBC TRANSFUSION AT 100 ML/HR. WILL STAY W/ PT TO ENSURE SAFE TRANSFUSION
--- NOTE | 2020-03-23 13:45 | NUR ---
WOUND CARE RE-EVALUATION DONE, SKIN ASSESSMENT DONE WITH PRIMARY RN, OVAL ALL SKIN CONDITION IS IMPROVING, POC DISCUSSED WITH PRIMARY RN. MISSING TEETH OBSERVED INTEGUMENTARY: -TRACH SITE GLORY-STOMA SKIN MOIST SUTURES IN PLACE -LUQ G TUBE IN PLACE GLORY-STOMA SKIN DRY AND CLEAN -PREVIOUS LIPS AND ORAL MUCOSAL ULCERATIONS IMPROVING, SCABS FORMING NO MORE BLEEDING -SACRALCOCCYX UN-STAGEABLE WOUND BED BROWN AND DRY 2X3CM MERGED WITH L/R INNER BUTTOCKS THREE ULCERS WITH LARGEST 2X1X0.1CM, PARTIAL THICKNESS SKIN LOSS, IRREGULAR SHAPE WITH WOUND BED RED AND MOIST SURROUNDING REDNESS 4X3CM -LEFT AND RIGHT EARS PREVIOUS UN-STAGEABLE BLACK SCABS WITH GLORY-WOUND SKIN INTACT -LEFT CHEEK AND NOSE DRY SCABS. GLORY-WOUND SKIN INTACT -RIGHT CHEEK PREVIOUS UN-STAGEABLE BROWN/BLACK SCABS PEELING, 2X4CM SUPERFICIAL DEPTH, WOUND BED IS RED SCATTERED YELLOW TISSUE, MOIST NO S/S OF INFECTION, GLORY WOUND SKIN INTACT RECOMMENDATIONS: -CLEANSE RIGHT CHEEK WITH NS, PAT DRY APPLY Z-GUARD BID AND LEAVE IT OPEN TO AIR -CLEANSE WITH NS, PAT DRY, APPLY VERSATEL DRESSING TO RIGHT AND LEFT EAR, LEFT NOSE QD AND PRN IF SOILING, OFFLOADING AND SHIFT WEIGHTS Q2 HOURS -CLEANSE SACRALCOCCYX AND R/L BUTTOCKS WITH NS. PAT DRY APPLY Z GUARD ADAPTIC DRESSING AND COVER WITH FOAM DRESSING Q D AND PRN IF SOILING -ASSESS AND MONITOR SKIN CONDITION DURING POSITION CHANGE -OFFLOAD BILATERAL HEELS BY PLACING PILLOWS UNDER CALVES AT ALL TIMES, UNLESS OTHERWISE CONTRAINDICATED -PRESSURE REDISTRIBUTION BY PLACING PILLOWS AND OFFLOADING SACRALCOCCYX -KEEP SKIN CLEAN AND DRY AT ALL TIMES.
--- NOTE | 2020-03-23 14:00 | NUR ---
SPOKE TO FAMILY W/ PT'S PHONE VIA VIDEO CHAT.
--- NOTE | 2020-03-23 15:21 | NUR ---
03/23/20 RD FOLLOW UP COMPLETED PLEASE REFER TO NUTRITION ASSESSMENT UNDER CARE ACTIVITY FOR ESTIMATED NUTRITIONAL NEEDS. 1. CONTINUE NEPRO 1.8 AT 40 ML/HR WITH PROSOURCE BID AND DIANE BID. -THIS WILL PROVIDE 960 ML OF VOLUME, 1848 CALORIES, 107 GM OF PROTEIN, WHICH MEETS 100% OF ESTIMATED KCAL AND PROTEIN NEEDS 2. CONTINUE FREE WATER FLUSH OF 100 ML Q6H 3. CONTINUE NEPHRO-BRE 4. RD TO FOLLOW-UP 2-3 DAYS, HIGH RISK RITU OG RD
--- NOTE | 2020-03-23 16:45 | NUR ---
BLOOD TRANSFUSION COMPLETE. PT VITALS STABLE AT THIS TIME
[2020-03-23] MEDS: MEROPENEM 500 MG in NACL 0.9% 50 ML IV SCH (17:14)
--- NOTE | 2020-03-23 17:40 | NUR ---
STABLE GOOD CHEST RISE DEEP TRACHEAL SUCTION FOR MODERATE YELLOW WITH BLOOD TINGE SECRETIONS AIRWAY PATENT
--- NOTE | 2020-03-23 18:00 | NUR ---
NO UO, RECTAL BAG AT 300 ML. NEW NEPRO FEEDING STARTED, DIANE WAS GIVEN
[2020-03-23] MEDS: MORPHINE SULFATE 4 MG/ML SYR IVP PRN ×2 (18:13→23:40)
--- NOTE | 2020-03-23 19:20 | NUR ---
GAVE CHANGE OF SHIFT REPORT TO SHOCHET NURSE TO ENSURE CONTINUITY OF CARE.
--- NOTE | 2020-03-23 20:00 | NUR ---
PT TRACH (PORTEX 7) TO VENT. A/C PC FIO2 55%, PINSP 15, RATE 18, PEEP 10. ORAL MUCOSA PINK AND MOIST. LUNG SOUNDS DIMINISHED. RESPIRATION EVEN AND UNLABORED. PULSES PALPABLE. G-TUBE IN PLACE, AUSCULTATED, POSITIVE PLACEMENT. 5 MLS RESIDUALS. ON NEPRO 40MLS/HR WITH FWF OF 100MLS/6HR. BILATERAL SOFT WRIST RESTRAINTS ON WITH NO SIGNS OF INJURIES. OPENS EYES SPONTANEOUSLY. PRESSURE ULCERS OBSERVED ON BILATERAL CHEEKS (OPEN TO AIR), BILATERAL EARS(VERSATEL IN PLACE) AND SACROCOCCYX(ZGUARD/OPTIFOAM). PT HAS ACCESSES ON THE RIGHT CHEST TUNNELLED CATHETER FOR DIALYSIS AND RIGHT UPPER ARM PICC LINE. RECTAL TUBE IN PLACE DRAINING TO GRAVITY. DROPLET PRECAUTION MAINTAINED. HOB 30 DEGREES, BED IN LOWEST POSITION, SIDE RAILS UP. VIDEO CALLED WITH FAMILY MEMBER VIA MESSENGER. WILL CONTINUE TO MONITOR PT.
[2020-03-23 20:08] LABS: ANION GAP 13.4 (8-16); CARBON DIOXIDE 27.9 mmol/L (21-32); CREATININE 3.5 mg/dL (0.6-1.3); POTASSIUM 3.3 mmol/L (3.5-5.1)
--- NOTE | 2020-03-23 20:10 | NUR ---
BUN 137. PT IS ON HEMODIALYSIS.
[2020-03-23] MEDS: ATORVASTATIN 20 MG TAB PO SCH (20:48)
--- NOTE | 2020-03-23 21:43 | NUR ---
REPORT RECEIVED FROM RITU GIRALDO TRANSFER FROM [facility]. PT IS IN UNSTABLE CONDITION. WILL CONTINUE TO MONITOR PATIENT. Addendum: 04/22/20 at 0145 by Juan Carlos Jules RN WRONG DATE. WRONG INTERVENTION.
--- NOTE | 2020-03-23 22:00 | NUR ---
PT WAS TURNED AND REPOSITIONED. ORAL CARE DONE. NO DISTRESS OBSERVED. WILL CONTINUE TO MONITOR.
--- NOTE | 2020-03-23 23:40 | NUR ---
PT BLOOD PRESSURE 181/80, PRN HYDRALAZINE IV 10MG GIVEN ORDERED. PT APPEARS TO BE IN PAIN, FACIAL GRIMACING OBSERVED AND TEARY EYED. PRN MORPHINE ADMINISTERED ORDERED. WILL CONTINUE TO MONITOR.
[2020-03-24] VITALS (22 sets, daily range): BP systolic 90–177; BP diastolic 55–177
[2020-03-24] MEDS: BLOOD GLUCOSE MONITORING 1 DEV DEV FS SCH ×7 (00:33→23:47)
[2020-03-24] MEDS: INSULIN LISPRO SLIDING SCALE 100 UNITS/ML VIAL SUBQ PRN ×3 (00:37→23:49)
[2020-03-24] MEDS: Z-GUARD PASTE TP SCH ×2 (01:00→12:13)
--- NOTE | 2020-03-24 01:40 | NUR ---
TURNED AND REPOSITIONED AT THIS TIME. NO RESPIRATORY DISTRESS. ORAL CARE, GLORY CARE DONE. WILL CONTINUE TO MONITOR.
[2020-03-24] MEDS: ALBUTEROL HFA MDI 90 MCG/ACTUATION 8 GM INH SCH ×4 (02:00→19:00)
--- NOTE | 2020-03-24 03:01 | NUR ---
PT IN NO DISTRESS OBSERVED. VITAL SIGNS ARE BP: 131/53, HR: 75, RR: 18, O2 SAT: 95%. RESTING IN BED WITH EYES CLOSED. WILL CONTINUE TO MONITOR.
[2020-03-24] MEDS: METOCLOPRAMIDE 10 MG/2 ML INJ VIAL IVP SCH ×3 (05:36→20:15)
[2020-03-24] MEDS: ALUMINUM HYDROXIDE 64 MG/ML BOTTLE PO SCH ×3 (05:36→20:15)
--- NOTE | 2020-03-24 05:37 | NUR ---
MORNING ROUTINE DONE. GLORY CARE, ORAL CARE, BED LINEN CHANGED. PT IN NO DISTRESS OBSERVED. WILL CONTINUE TO MONITOR.
[2020-03-24 06:04] LABS: HEMATOCRIT 24.8 % (36-48); HEMOGLOBIN 8.2 g/dL (12.0-16.0); MEAN CORPUSCULAR HEMOGLOBIN 29 pg (27-31); MEAN CORPUSCULAR HGB CONC 33 g/dL (33-37); MEAN CORPUSCULAR VOLUME 88.3 fL (80-94); PLATELET COUNT (AUTO) 124 K/uL (140-450); RED CELL DISTRIBUTION WIDTH 16.3 % (11.6-13.7); WHITE BLOOD COUNT (AUTO) 24.9 K/uL (4.8-10.8)
[2020-03-24 06:48] LABS: ALBUMIN 1.8 g/dL (3.4-5.0); ANION GAP 16.6 (8-16); CARBON DIOXIDE 25.3 mmol/L (21-32); CREATININE 3.7 mg/dL (0.6-1.3); PHOSPHORUS 4.7 mg/dL (2.5-4.9); TOTAL BILIRUBIN 0.4 mg/dL (0.0-1.0)
--- NOTE | 2020-03-24 07:21 | NUR ---
ENDORSED PT TO DAY SHIFT RN FOR CONTINUITY OF CARE.
--- NOTE | 2020-03-24 07:22 | NUR ---
BEDSIDE REPORT RECEIVED FROM CARNALLITE PLANT OPERATOR NURSE, PT AWAKE ALERT, RESP WITH TRACH TO VENT WITH SETTING OF ACPC FIO2 50%, RR 18, PEEP 10, RESP UNLABORED,RR AT 20, ON ON BUTTONHOLE TACKER HR 80, RR 24, BP 159/72, O2SAT 100%, SKIN DRY COLOR WNL, SUBCLIAVIAN R UPPER CHEST, R UA PICC LINE, SITES WNL, PEG TUBE IN PLACE, FEEDING NEPRO AT 40ML/HR, FWF 100./6HR, RECTAL TUBE IN PLACE, POC REVIEWED, ALL SAFETY MEASURES IN PLACE, WILL CONTINUE TO MONITOR.
[2020-03-24 07:24] LABS: LYMPHOCYTES % (MANUAL) 4 % (20-46); MONOCYTES % (MANUAL) 4 % (5-12)
--- NOTE | 2020-03-24 07:30 | NUR ---
PT REMAINS ON DOCUMENTED SETTINGS, VENT CHECK DONE. TRACH IS SECURED AND INTACT. VENT PLUGGED INTO RED OUTLET, ALARMS ON AND FUNCTIONING, AMBU BAG AT BEDSIDE.
[2020-03-24 07:38] LABS: POTASSIUM 2.9 mmol/L (3.5-5.1)
[2020-03-24] MEDS: LOSARTAN 50 MG TAB PO SCH ×2 (08:22→20:15)
[2020-03-24] MEDS: CHOLECALCIFEROL 1,000 IU TAB NG SCH (08:23)
[2020-03-24] MEDS: METOPROLOL 25 MG TAB PO SCH ×2 (08:23→20:15)
[2020-03-24] MEDS: hydrALAZINE 10 MG TAB PO SCH ×3 (08:23→17:00)
[2020-03-24] MEDS: PANTOPRAZOLE 40 MG INJ VIAL IVP SCH ×2 (08:24→20:14)
[2020-03-24] MEDS: VIT-B COMP/VIT-C/FOLIC ACID 1 TAB PO SCH (08:24)
[2020-03-24] MEDS: POLYVINYL ALCOHOL 1.4% OP 15 ML SOL OP SCH ×3 (09:13→17:20)
[2020-03-24] MEDS: SILVER SULFADIAZINE 1% 50 GM JAR TP SCH (09:13)
[2020-03-24] MEDS: INSULIN NPH HUMAN ISOPHANE 100 UNIT/ML VIAL SUBQ SCH ×2 (09:14→20:48)
--- NOTE | 2020-03-24 09:14 | NUR ---
DUE MEDICATION GIVEN, PT TOLERATED WELL, NO DISTRESS NOTED, WILL CONTINUE TO MONITOR.
[2020-03-24] MEDS: MORPHINE SULFATE 4 MG/ML SYR IVP PRN (11:39)
--- NOTE | 2020-03-24 11:39 | NUR ---
PT RESTLESS, FLACC 7, PAIN MEDICATION GIVEN, PT TOLERATED WELL, NO DISTRESS NOTED, WILL CONTINUE TO MONITOR.
[2020-03-24] MEDS ORDERED: POTASSIUM CHLORIDE 40 MEQ, LIDOCAINE MPF 1% 25 MG in NACL 0.9% 250 ML IV SCH (12:00)
--- NOTE | 2020-03-24 13:00 | NUR ---
INCREASED FIO2 TO 60% DUE TO DESAT. PT CURRENT SPO2 READING 93%. NO SIGN OF DISTRESS AT THIS TIME. WILL CONTINUE TO MONITOR.
--- NOTE | 2020-03-24 13:00 | NUR ---
NURSE HARTMANN IS AWARE OF FIO2 CHANGE.
--- NOTE | 2020-03-24 16:00 | NUR ---
PT PO2 DESATURATED TO 88% DESPITE SUCTIONING, AND TREATMENT, FIO2 AT 60%, CALLED DR. MOODY DR. ORDERED ABG AND CHEST XRAY STAT. ORDERED PUT IN, WILL CONTINUE TO MONITOR.
--- NOTE | 2020-03-24 17:00 | NUR ---
PT REMAINS ON DOCUMENTED SETTINGS, VENT CHECK DONE. PT RECEIVING DIALYSIS AT THIS TIME, NO DISTRESS NOTED, SPO2 READS 92%. TRACH IS SECURED AND INTACT. VENT PLUGGED INTO RED OUTLET, ALARMS ON AND FUNCTIONING, AMBU BAG AT BEDSIDE.
--- NOTE | 2020-03-24 17:00 | NUR ---
PICC DRESSING CHANGED, PT TOLERATED WELL, NO DISTRESS NOTED, WILL CONTINUE TO MONITOR.
--- NOTE | 2020-03-24 17:30 | NUR ---
DIALYSIS STARTED, DIALYSIS NURSE AT BEDSIDE, WILL CONTINUE TO MONITOR.
--- NOTE | 2020-03-24 18:00 | NUR ---
PT SATURATION DECREASED DURING DIALYSIS TO 83%, FIO2 IS AT 70%, DR. ALCALA AT BEDSIDE, PT SATURATION WENT BACK UP TO 92%. DIALYSIS IS STILL ONGOING, DIALYSIS NURSE AT BEDSIDE.
--- NOTE | 2020-03-24 19:11 | NUR ---
ENDORSED PT TO DRYING MACHINE OPERATOR PACKAGE YARNS NURSE, PT STILL ON DIALYSIS.
--- NOTE | 2020-03-24 19:12 | NUR ---
REPORT RECEIVED FROM AM NURSE AT BEDSIDE. PT IN STABLE CONDITION. AAOX1-2. FLACC 0. NO SOB TRACH TO VENT. VENT SETTINGS AC P/C FIO2@60%, RR 18, PEEP 10. UNLABORED, O2 SAT@92%. AFEBRILE. PT IS BEDBOUND. PT HAS RESTRAINTS. PT DOES NOT HAVE PERRY. PT IS ANURIC. PT HAS RECTAL TUBE. GTUBE IN PLACE RUNNING TUBE FEEDINGS. NEPRO@40ML/HR WITH 100ML H20 FLUSH Q6H. IV SITE R UA PICC DOUBLE LUMEN BOTH SL PATENT AND INTACT. SKIN WARM, DRY, AND NOT INTACT. SEE WOUND NOTES. BED LOCKED IN LOW POSITION. CALL JIMENES WITHIN REACH. SAFETY PRECAUTION IN PLACE. ALL NEEDS MET AT THIS TIME.
--- NOTE | 2020-03-24 19:35 | NUR ---
RECEIVED REPORT FROM AM SHIFT. PATIENT SEEN AND ASSESSED. PATIENT TRACH TO VENT WITH PORTEX SIZE 7 AND SECURED WITH TRACH TIE. AUSCULTATION REVEALS BILATERAL RALES BREATH SOUNDS. NOTICED ADEQUATE BILATERAL CHEST RISE AND FALL. PATIENT ON VENT SETTINGS AC/PC 15,R 18, +10, 70% WITH SPO2 OF 90%. VENT PLUGGED IN RED OUTLET, HOB > 30 DEGREES, AMBU BAG AT BEDSIDE, AND ALARMS SET AND AUDIBLE. PATIENT IS IN NO RESPIRATORY DISTRESS AT THIS TIME. MDI TX GIVEN ORDERED VIA INLINE AND PATIENT TOLERATED WELL WITH NO ADVERSE REACTION. SUCTION PINK TINGE SECRETIONS FROM ETT. AIRWAY IS PATIENT. WILL CONTINUE TO MONITOR PATIENT.
[2020-03-24] MEDS: MEROPENEM 500 MG in NACL 0.9% 50 ML IV SCH (20:14)
--- NOTE | 2020-03-24 20:14 | NUR ---
LIPITOR AND ALUMINUM HYDROXIDE GIVEN THROUGH GTUBE. PROTONIX AND REGLAN GIVEN IVP. COZAAR AND METOPROLOL HELD DUE TO DECREASED BP. MD NOTIFIED. HUMULIN HELD DUE TO DECREASED BLOOD SUGAR. BS 143. MERREM HUNG AND RUNNING AFTER COMPLETION OF HEMODIALYSIS. ORAL CARE GIVEN. PT ABLE TO FACE TIME WITH FAMILY.
[2020-03-24] MEDS: ATORVASTATIN 20 MG TAB PO SCH (20:15)
[2020-03-24] MEDS ORDERED: VANCOMYCIN 500 MG in NACL 0.9% 100 ML IV SCH (21:00)
--- NOTE | 2020-03-24 21:57 | NUR ---
CANDELARIA RODRÍGUEZ AND RUNNING. PT TOLERATING WELL.
--- NOTE | 2020-03-24 23:47 | NUR ---
BS 153. 2 UNITS OF HUMALOG GIVEN. ORAL CARE DONE.
[2020-03-25] VITALS (24 sets, daily range): BP systolic 87–162; BP diastolic 47–76
[2020-03-25] MEDS: MORPHINE SULFATE 4 MG/ML SYR IVP PRN ×3 (01:27→23:52)
[2020-03-25] MEDS: Z-GUARD PASTE TP SCH ×2 (01:27→13:09)
--- NOTE | 2020-03-25 01:27 | NUR ---
MORPHINE GIVEN FOR 05/01 GENERALIZED PAIN. PT TOLERATED WELL. Addendum: 03/25/20 at 0225 by Juan Carlos Jules RN FOR FLACC 6.
--- NOTE | 2020-03-25 01:48 | NUR ---
TITRATED FiO2 FROM 70% TO 67% WITH SPO2 OF 90%. PATIENT TOLERATING WELL. WILL CONTINUE TO MONITOR PATIENT.
[2020-03-25] MEDS: ALBUTEROL HFA MDI 90 MCG/ACTUATION 8 GM INH SCH ×3 (01:56→19:00)
[2020-03-25] MEDS: BLOOD GLUCOSE MONITORING 1 DEV DEV FS SCH ×6 (04:15→23:51)
--- NOTE | 2020-03-25 04:15 | NUR ---
MINDALAN GIVEN IVP. ALUMINUM HYDROXIDE GIVEN THROUGH GTUBE. BS 176. 2 UNITS OF HUMALOG GIVEN. Addendum: 03/25/20 at 0647 by Juan Carlos Jules RN ORAL CARE DONE. PT CHANGED. LINENS CHANGED. DRESSINGS C/D/I.
[2020-03-25] MEDS: INSULIN LISPRO SLIDING SCALE 100 UNITS/ML VIAL SUBQ PRN ×3 (05:00→23:52)
[2020-03-25] MEDS: ALUMINUM HYDROXIDE 64 MG/ML BOTTLE PO SCH ×3 (05:00→20:34)
[2020-03-25] MEDS: METOCLOPRAMIDE 10 MG/2 ML INJ VIAL IVP SCH ×3 (05:00→20:34)
[2020-03-25 06:14] LABS: HEMATOCRIT 25.6 % (36-48); HEMOGLOBIN 8.4 g/dL (12.0-16.0); MEAN CORPUSCULAR HEMOGLOBIN 29 pg (27-31); MEAN CORPUSCULAR HGB CONC 33 g/dL (33-37); MEAN CORPUSCULAR VOLUME 88.2 fL (80-94); PLATELET COUNT (AUTO) 115 K/uL (140-450); RED BLOOD CELL COUNT(AUTO) 2.91 MIL/uL (4.20-5.40); RED CELL DISTRIBUTION WIDTH 16.5 % (11.6-13.7); WHITE BLOOD COUNT (AUTO) 21.7 K/uL (4.8-10.8)
--- NOTE | 2020-03-25 06:15 | NUR ---
FECAL BAG CHANGED. 500ML OF STOOL ON MY SHIFT.
--- NOTE | 2020-03-25 06:37 | NUR ---
PATIENT STILL REMAINS ON VENT SUPPORT. AIRWAY IS PATENT. EQUAL CHEST RISE AND FALL.TUBE IS SECURED AND INTACT. PATIENT IN NO DISTRESS AT THIS TIME. WILL CONTINUE TO MONITOR.
--- NOTE | 2020-03-25 07:05 | NUR ---
PT REMAINS ON DOCUMENTED SETTINGS, NO DISTRESS NOTED AT THIS TIME. TRACH SECURED AND INTACT. VENT CHECK DONE. VENT PLUGGED INTO RED OUTLET, ALARM ON AND FUNCTIONING, AMBU BAG AT BEDSIDE. WILL CONTINUE TO MONITOR.
--- NOTE | 2020-03-25 07:09 | NUR ---
REPORT GIVEN TO AM NURSE AT BEDSIDE. PT IN STABLE CONDITION.
--- NOTE | 2020-03-25 07:10 | NUR ---
BEDSIDE REPORT RECEIVED FROM DINING ROOM HELPER NURSE, PT AWAKE ALERT, RESP WITH TRACH TO VENT WITH SETTING OF ACPC FIO2 67%, RR 18, PEEP 10, RESP UNLABORED,RR AT 32, ON ON SPANISH LANGUAGE LECTURER HR 99, RR 32, BP 142/62, O2SAT 95%, SKIN DRY COLOR WNL, SUBCLIAVIAN R UPPER CHEST, R UA PICC LINE, SITES WNL, PEG TUBE IN PLACE, FEEDING NEPRO AT 40ML/HR, FWF 100./6HR, RESIDUAL 1ML, RECTAL TUBE IN PLACE, POC REVIEWED, ALL SAFETY MEASURES IN PLACE, WILL CONTINUE TO MONITOR.
[2020-03-25 07:12] LABS: ALBUMIN 1.8 g/dL (3.4-5.0); ANION GAP 13.2 (8-16); CARBON DIOXIDE 28.4 mmol/L (21-32); CREATININE 2.3 mg/dL (0.6-1.3); MAGNESIUM 1.7 mg/dL (1.8-2.4); POTASSIUM 3.6 mmol/L (3.5-5.1); TOTAL BILIRUBIN 0.5 mg/dL (0.0-1.0)
[2020-03-25 07:14] LABS: EOSINOPHILS % (MANUAL) 4 % (0-4); LYMPHOCYTES % (MANUAL) 3 % (20-46); MONOCYTES % (MANUAL) 4 % (5-12)
[2020-03-25] MEDS: CHOLECALCIFEROL 1,000 IU TAB NG SCH (08:10)
[2020-03-25] MEDS: VIT-B COMP/VIT-C/FOLIC ACID 1 TAB PO SCH (08:10)
[2020-03-25] MEDS: METOPROLOL 25 MG TAB PO SCH ×2 (08:11→20:35)
[2020-03-25] MEDS: LOSARTAN 50 MG TAB PO SCH ×2 (08:11→20:35)
[2020-03-25] MEDS: hydrALAZINE 10 MG TAB PO SCH ×3 (08:11→16:36)
[2020-03-25] MEDS: SILVER SULFADIAZINE 1% 50 GM JAR TP SCH (08:11)
[2020-03-25] MEDS: POLYVINYL ALCOHOL 1.4% OP 15 ML SOL OP SCH ×3 (08:12→17:02)
[2020-03-25] MEDS: LORazepam 0.5 MG TAB GT PRN (08:22)
--- NOTE | 2020-03-25 08:22 | NUR ---
DUE MEDICATION GIVEN, PT RESTLESS, ATIVAN GIVEN PER DR ORDER, NO DISTRESS NOTED, TOLERATED WELL, WILL CONTINUE TO MONITOR.
[2020-03-25] MEDS: INSULIN NPH HUMAN ISOPHANE 100 UNIT/ML VIAL SUBQ SCH ×2 (09:08→20:35)
--- NOTE | 2020-03-25 13:08 | NUR ---
DUE MEDICATION ADMINISTERED, PT TOLERATED WELL, CLEANED PT, WOUND CARE DONE, PT TOLERATED WELL, WILL CONTINUE TO MONITOR.
--- NOTE | 2020-03-25 14:02 | NUR ---
PT FLACC 7, PAIN MEDICATION GIVEN, PT TOLERATED WELL, NO DISTRESS NOTED, WILL CONTINUE TO MONITOR.
--- NOTE | 2020-03-25 16:36 | NUR ---
PT BP 87/47, MAP 90, PT RESTING, NO DISTRESS NOTED, HYDRALAZINE DUE HELD DUE TO PT BP LOW. WILL CONTINUE TO MONITOR.
--- NOTE | 2020-03-25 17:45 | NUR ---
TRANSFERRED PT TO ICU BED 2. TRACH IS SECURED AND INTACT. PT SHOWS NO SIGN OF DISTRESS AT THIS TIME. VENT PLUGGED INTO RED OUTLET, ALARMS ON AND FUNCTIONING,AMBU BAG AT BEDSIDE.
[2020-03-25] MEDS: MEROPENEM 500 MG in NACL 0.9% 50 ML IV SCH (18:48)
--- NOTE | 2020-03-25 19:25 | NUR ---
ENDORSED PT TO CHILD CARE SITTER NURSE. PT STABLE, RESTING.
--- NOTE | 2020-03-25 19:38 | NUR ---
RECEIVED REPORT FROM AM SHIFT. PATIENT SEEN AND ASSESSED. PATIENT TRACH TO VENT WITH PORTEX SIZE 7 AND SECURED WITH TRACH TIE. AUSCULTATION REVEALS BILATERAL RALES BREATH SOUNDS. NOTICED ADEQUATE BILATERAL CHEST RISE AND FALL. PATIENT ON VENT SETTINGS AC/PC 15,R 18, +10, 60% WITH SPO2 OF 98%. VENT PLUGGED IN RED OUTLET, HOB > 30 DEGREES, AMBU BAG AT BEDSIDE, AND ALARMS SET AND AUDIBLE. PATIENT IS IN NO RESPIRATORY DISTRESS AT THIS TIME. MDI TX GIVEN ORDERED VIA INLINE AND PATIENT TOLERATED WELL WITH NO ADVERSE REACTION. SUCTION ROONEY THICK SECRETIONS FROM TUBE. AIRWAY IS PATIENT. WILL CONTINUE TO MONITOR PATIENT.
--- NOTE | 2020-03-25 20:00 | NUR ---
RECEIVED REPORT FROM DAY SHIFT RN. PT TRACH TO VENT. A/C PC FIO2 60%, PINSP 15, RATE 18, PEEP 10. ON BILATERAL SOFT WRIST RESTRAINTS WITH NO SIGNS OF INJURIES OBSERVED. OPENS EYES SPONTANEOUSLY. PRESSURE ULCERS OBSERVED ON BILATERAL CHEEKS (OPEN TO AIR), BILATERAL EARS(VERSATEL IN PLACE) AND SACROCOCCYX(ZGUARD/OPTIFOAM). WOUND TREATMENT IN PLACE. ORAL MUCOSA PINK AND MOIST. LUNG SOUNDS DIMINISHED. RESPIRATION EVEN AND UNLABORED. PULSES PALPABLE. G-TUBE IN PLACE, AUSCULTATED, POSITIVE PLACEMENT. 20 MLS RESIDUALS. ON NEPRO 40MLS/HR WITH FWF OF 100MLS/6HR.PT HAS ACCESSES ON THE RIGHT CHEST TUNNELLED CATHETER FOR DIALYSIS AND RIGHT UPPER ARM PICC LINE. RECTAL TUBE IN PLACE, PATENT AND DRAINING TO GRAVITY. DROPLET PRECAUTION MAINTAINED. HOB 30 DEGREES, BED IN LOWEST POSITION, SIDE RAILS UP. SAFETY MEASURES OBSERVED. WILL CONTINUE TO MONITOR PT.
--- NOTE | 2020-03-25 20:33 | NUR ---
BS: 126. DR. VASQUEZ MADE AWARE. OKAYED NOT TO GIVE HUMULIN 70/30 50 UNITS AT THIS TIME. WILL CONTINUE TO MONITOR.
[2020-03-25] MEDS: ATORVASTATIN 20 MG TAB PO SCH (20:35)
--- NOTE | 2020-03-25 22:00 | NUR ---
PT TURNED AND REPOSITIONED. ORAL CARE AND GLORY CARE PROVIDED. WILL CONTINUE TO MONITOR.
--- NOTE | 2020-03-25 23:45 | NUR ---
BS: 204. 4 UNITS HUMALOG GIVEN ORDERED. PT TOLERATING FEEDING WELL. TURNED AND REPOSITIONED. WILL CONTINUE TO MONITOR.
[2020-03-26] VITALS (23 sets, daily range): BP systolic 95–164; BP diastolic 43–69
--- NOTE | 2020-03-26 00:42 | NUR ---
PT RESTING IN BED WITH EYES CLOSED. VITAL SIGNS STABLE ON THE MONITOR. NO DISTRESS OBSERVED.
[2020-03-26] MEDS: Z-GUARD PASTE TP SCH ×2 (00:44→12:01)
[2020-03-26] MEDS: ALBUTEROL HFA MDI 90 MCG/ACTUATION 8 GM INH SCH ×3 (01:51→19:10)
--- NOTE | 2020-03-26 02:45 | NUR ---
RECEIVED PT FROM KRISTAL MCQUEEN, PT RESTING IN BED WITH EYES CLOSED WILL CONTINUE TO MONITOR PT
--- NOTE | 2020-03-26 04:00 | NUR ---
PT RESTING IN BED, CLEANED AND REPOSITIONED PT
[2020-03-26] MEDS: BLOOD GLUCOSE MONITORING 1 DEV DEV FS SCH ×5 (04:51→20:01)
[2020-03-26] MEDS: METOCLOPRAMIDE 10 MG/2 ML INJ VIAL IVP SCH ×3 (04:51→20:07)
[2020-03-26] MEDS: ALUMINUM HYDROXIDE 64 MG/ML BOTTLE PO SCH ×3 (04:51→20:07)
[2020-03-26] MEDS: INSULIN LISPRO SLIDING SCALE 100 UNITS/ML VIAL SUBQ PRN ×5 (04:52→20:24)
[2020-03-26 06:12] LABS: BASOPHILS # (AUTO) 0.1 K/uL (0.00-0.22); BASOPHILS % (AUTO) 0.4 % (0.0-2.0); EOSINOPHILS # (AUTO) 0.3 K/uL (0-0.4); EOSINOPHILS % (AUTO) 1.8 % (0.0-4.0); HEMATOCRIT 22.5 % (36-48); HEMOGLOBIN 7.4 g/dL (12.0-16.0); LYMPHOCYTES % (AUTO) 6.4 % (20.5-51.1); MEAN CORPUSCULAR HEMOGLOBIN 29 pg (27-31); MEAN CORPUSCULAR HGB CONC 33 g/dL (33-37); MEAN CORPUSCULAR VOLUME 89.2 fL (80-94); MONOCYTES # (AUTO) 0.6 K/uL (0.8-1.0); MONOCYTES % (AUTO) 3.8 % (1.7-9.3); NEUTROPHILS # (AUTO) 13.8 K/uL (1.8-7.7); NEUTROPHILS % (AUTO) 87.6 % (42.2-75.2); PLATELET COUNT (AUTO) 81 K/uL (140-450); RED BLOOD CELL COUNT(AUTO) 2.52 MIL/uL (4.20-5.40); RED CELL DISTRIBUTION WIDTH 16.1 % (11.6-13.7); WHITE BLOOD COUNT (AUTO) 15.8 K/uL (4.8-10.8)
[2020-03-26 07:14] LABS: ANION GAP 13.3 (8-16); CARBON DIOXIDE 26.1 mmol/L (21-32); CREATININE 3.5 mg/dL (0.6-1.3); PHOSPHORUS 4.9 mg/dL (2.5-4.9); POTASSIUM 4.4 mmol/L (3.5-5.1)
--- NOTE | 2020-03-26 07:20 | NUR ---
PT ENDORSED TO DAYSHIFT RN PT VITALS STABLE AND RESTING IN BED
--- NOTE | 2020-03-26 07:30 | NUR ---
RECEIVED BEDSIDE REPORT FROM TONGUE AND QUARTER STITCHER RN. PT IS AWAKE, ESTONIAN SPEAKING, FOLLOWS SIMPLE COMMANDS. DENIES PAIN. AFEBRILE. NORMAL SINUS RHYTHM ON MONITOR. PALPABLE PULSES TO ALL EXTREMITIES. CAP REFILL < 3 SEC. TRACH TO VENT: A/C PC FIO2 55%, PINSP 15, RR 18, PEEP 5. LUNGS SOUND DIMINISHED. BREATHING EVEN AND UNLABORED. DRY BLOOD NOTED ON LIPS, NO ACTIVE BLEEDING NOTED. G-TUBE IN PLACE, RECEIVING TUBE FEEDING NEPRO AT 40 ML/HR, FWF 100 ML Q6H. 5 ML RESIDUALS. PICC LINE TO RIGHT UPPER ARM ASYMPTOMATIC, PATENT AND INTACT, RUNNING NS TKO. HD ACCESS TUNNELED CATHETER TO RIGHT CHEST IN PLACE. RECTAL TUBE IN PLACE, MINIMAL AMOUNT OF STOOL NOTED AT THIS TIME. WOUND ON BL CHEEKS, OPEN TO AIR, ON BL EARS VERSATEL IN PLACE. DRESSING TO SACRAL WOUND CLEAN, DRY AND INTACT. HOB AT 30 DEGREES. BED IN LOWEST POSITION LOCKED. CALL LIGHT WITHIN REACH. WILL CONTINUE TO MONITOR.
--- NOTE | 2020-03-26 07:52 | NUR ---
DR. DIXON AND RESIDENT GROUP IN TO SEE PT. WILL FOLLOW UP ON ORDERS.
[2020-03-26] MEDS: METOPROLOL 25 MG TAB PO SCH ×2 (08:29→20:25)
[2020-03-26] MEDS: VIT-B COMP/VIT-C/FOLIC ACID 1 TAB PO SCH (08:29)
[2020-03-26] MEDS: hydrALAZINE 10 MG TAB PO SCH ×4 (08:30→16:57)
[2020-03-26] MEDS: POLYVINYL ALCOHOL 1.4% OP 15 ML SOL OP SCH ×3 (08:30→16:23)
[2020-03-26] MEDS: CHOLECALCIFEROL 1,000 IU TAB NG SCH (08:30)
[2020-03-26] MEDS: LOSARTAN 50 MG TAB PO SCH ×2 (08:30→20:24)
[2020-03-26] MEDS: INSULIN NPH HUMAN ISOPHANE 100 UNIT/ML VIAL SUBQ SCH ×2 (08:32→20:23)
--- NOTE | 2020-03-26 08:55 | NUR ---
MEDICATIONS ADMINISTERED ORDERED. PER DOYLE CUMMINS, HD WILL NOT BE UNTIL NOON, AND GIVE ALL SCHEDULED BP MEDS. PT TOLERATED WELL.
--- NOTE | 2020-03-26 10:52 | NUR ---
PT SEEN BY DR. EDWARD. WILL FOLLOW UP WITH ANY NEW ORDERS.
--- NOTE | 2020-03-26 11:10 | NUR ---
DR. URIOSTEGUI IN TO SEE PT. WILL FOLLOW UP ON ORDERS.
[2020-03-26] MEDS: EPOETIN ALFA 10,000 UNITS/ML VIAL IV SCH (11:32)
--- NOTE | 2020-03-26 12:05 | NUR ---
VAP ORAL CARE GIVEN. REPOSITIONED PT. PRESSURE AREAS OFF LOADED. VSS.
--- NOTE | 2020-03-26 12:40 | NUR ---
PT'S DAUGHTER CALLED AND HAD A VIDEO CHAT WITH PT.
--- NOTE | 2020-03-26 13:00 | NUR ---
HYDRALAZINE HELD PRIOR TO HEMODIALYSIS.
--- NOTE | 2020-03-26 14:36 | NUR ---
HEMODIALYSIS STARTED AT BEDSIDE. VSS AT THIS TIME. SAFETY PRECAUTIONS IN PLACE. WILL CONTINUE TO MONITOR.
--- NOTE | 2020-03-26 15:25 | NUR ---
RECEIVED CALL FROM [id number], CAM, UPDATES GIVEN ON PT'S CONDITION.
--- NOTE | 2020-03-26 16:45 | NUR ---
DR. HUDSON IN TO SEE PT. UPDATES GIVEN ON PT'S CONDITION.
--- NOTE | 2020-03-26 18:05 | NUR ---
HEMODIALYSIS FINISHED. OUTPUT 2600 ML. PT TOLERATED WELL. VSS.
--- NOTE | 2020-03-26 19:10 | NUR ---
RECEIVED PT ON PC 15,R18,+10,60%. VENT PLUGGED INTO RED OUTLET. BMV AT BEDSIDE. ALARMS FUNTIONAL. TRACH IS SECURED AND INTACT. SMALL AMOUNT OF THIN REDDISH SECRETION DRAINING FROM STOMA. PT IS IN NO DISTRESS. INC FIO2 FROM 60% TO 75% DUE TO DESATURATION. WILL CONT TO MONITOR
[2020-03-26] MEDS: hydrALAZINE 20 MG/ML VIAL IVP PRN (19:16)
--- NOTE | 2020-03-26 19:26 | NUR ---
BEDSIDE REPORT RECEIVED FROM AM SHIFT RN. PT ALERT, OPENS EYES, FOLLOWS SIMPLE COMMANDS. AFEBRILE. TRACH TO VENT. ON AC/PC MODE. FIO2 60%, RATE 15, PEEP 10. IV SITE JULIO C PICC LINE, INFUSING TKO, INTACT, PATENT. GTUBE TO FEEDING, [address] TU[address]. SKIN NON INTACT, SEE WOUND ASSESSMENT. PT ON BILAT SOFT WRIST RESTRAINTS. NO SKIN BREAKDOWN NOTED. SAFETY PRECAUTIONS IN PLACE. HOB 30 DEGREES. BED LOCKED IN LOWEST POSITION. WILL CONTINUE TO MONITOR. Addendum: 03/26/20 at 2037 by Dion Gresham RN FIO2 75% Addendum: 03/26/20 at 2053 by Dion Gresham RN R SUBCLAVIAN HEMODIALYSIS CATH INTACT.
--- NOTE | 2020-03-26 19:26 | NUR ---
REPORT GIVEN TO AD TAKER RN FOR CONTINUITY OF CARE. PT IS IN STABLE CONDITION.
--- NOTE | 2020-03-26 20:15 | NUR ---
BLOOD SUGAR 201, HUMULIN N GIVEN SCHEDULED AND HUMALOG 4 UNITS GIVEN. SUBQ ABDOMEN. WILL CONTINUE TO MONITOR.
[2020-03-26] MEDS: ATORVASTATIN 20 MG TAB PO SCH ×2 (20:25→21:21)
--- NOTE | 2020-03-26 20:30 | NUR ---
HELD LOSARTAN AND METOPROLOL PER PARAMETERES. BLOOD PRESSURE 95/51. WILL CONTINUE TO MONITOR.
--- NOTE | 2020-03-26 20:31 | NUR ---
LOSARTAN AND METOPROL MEDICATIONS WASTED IN THE [employer] WASTE BLUE BIN.
[2020-03-26] MEDS ORDERED: PANTOPRAZOLE 40 MG INJ VIAL IVP ONE (21:40)
--- NOTE | 2020-03-26 22:08 | NUR ---
SPOKE WITH PT'S DAUGHTER IN [place] UPDATED ON PT STATUS. ALSO VIDEO CHATTED WITH PT AT BESIDE WITH PT'S SON AND DAUGHTER IN [place]. PT NODDING TO FAMILY.
[2020-03-26] MEDS ORDERED: PANTOPRAZOLE 40 MG INJ VIAL ONE (23:33)
[2020-03-27] VITALS (22 sets, daily range): BP systolic 71–163; BP diastolic 36–71
[2020-03-27] MEDS: Z-GUARD PASTE TP SCH ×2 (00:11→13:00)
--- NOTE | 2020-03-27 00:13 | NUR ---
BLOOD SUGAR 188, 2 UNITS OF HUMALOG GIVEN. WILL CONTINUE TO MONITOR.
[2020-03-27] MEDS: ALBUTEROL HFA MDI 90 MCG/ACTUATION 8 GM INH SCH ×4 (00:53→19:35)
--- NOTE | 2020-03-27 02:12 | NUR ---
DR VASQUEZ IN TO ASSESS PT.
[2020-03-27] MEDS ORDERED: ACETAMINOPHEN 325 MG TAB ONE (03:44)
[2020-03-27] MEDS: BLOOD GLUCOSE MONITORING 1 DEV DEV FS SCH ×6 (04:00→20:00)
[2020-03-27] MEDS: ACETAMINOPHEN 325 MG TAB PO PRN (04:00)
--- NOTE | 2020-03-27 04:00 | NUR ---
PT PRESENTS WITH INCREASED RESPIRATIONS IN THE 40'S. O2 SATURATION 98%. 100.9 F TEMPERATURE. TYLENOL PRN GIVEN. BLOOD SUGAR 175, 2 UNITS HUMALOG GIVEN. PT CLEANED, ORAL CARE PROVIDED. REPOSITIONED. HOB 30 DEGREES. BED LOCKED IN LOWEST POSITION, SAFETY PRECAUTIONS IN PLACE. WILL CONTINUE TO MONITOR.
[2020-03-27] MEDS: ALUMINUM HYDROXIDE 64 MG/ML BOTTLE PO SCH ×3 (04:18→20:51)
--- NOTE | 2020-03-27 04:30 | NUR ---
PT TRANSFERRED FROM ICU-2 TO ICU-1. RT AT BEDSIDE. NO COMPLICATIONS NOTED. SAFETY PRECAUTIONS IN PLACE. HOB 30 DEGREES. BED LOCKED IN LOWEST POSITION. WILL CONTINUE TO MONITOR.
[2020-03-27] MEDS: METOCLOPRAMIDE 10 MG/2 ML INJ VIAL IVP SCH ×3 (04:47→20:49)
--- NOTE | 2020-03-27 04:51 | NUR ---
PT TRANSFERRED OVER TO ICU BED 1. VENT PLUGGED INTO RED OUTLET. BMV AT BEDSIDE. TRACH IS SECURED AND INTACT. ALARMS FUNCTIONAL. PATENT AIRWAY REMAINS CLEAR. PT IS IN NO DISTRESS. WILL CONT TO MONITOR
[2020-03-27] MEDS: INSULIN LISPRO SLIDING SCALE 100 UNITS/ML VIAL SUBQ PRN ×6 (04:56→22:22)
[2020-03-27 06:07] LABS: HEMATOCRIT 26.8 % (36-48); HEMOGLOBIN 8.7 g/dL (12.0-16.0); MEAN CORPUSCULAR HEMOGLOBIN 29 pg (27-31); MEAN CORPUSCULAR HGB CONC 32 g/dL (33-37); PLATELET COUNT (AUTO) 147 K/uL (140-450); RED BLOOD CELL COUNT(AUTO) 2.98 MIL/uL (4.20-5.40); RED CELL DISTRIBUTION WIDTH 16.6 % (11.6-13.7)
--- NOTE | 2020-03-27 06:20 | NUR ---
BLOOD PRESSURE 71/36. [address] LEDESMA AT BEDSIDE.
--- NOTE | 2020-03-27 06:30 | NUR ---
PT IS LETHARGIC, WITHDRAWS TO PAIN AT THIS TIME. DR LEDESMA AT BEDSIDE. PT IS DIAPHORETIC. BLOOD SUGAR CHECK IS 205. CHEST XRAY AND BLOOD CULTURES DONE.
[2020-03-27 07:10] LABS: ALBUMIN 1.8 g/dL (3.4-5.0); ANION GAP 11.8 (8-16); CARBON DIOXIDE 29.2 mmol/L (21-32); MAGNESIUM 1.8 mg/dL (1.8-2.4); PHOSPHORUS 3.4 mg/dL (2.5-4.9); TOTAL BILIRUBIN 0.4 mg/dL (0.0-1.0)
[2020-03-27] MEDS ORDERED: NACL 0.9% 500 ML IV SCH (07:10)
--- NOTE | 2020-03-27 07:13 | NUR ---
recived pt on vent with settings as charted decreased fi02 to .60 rn aware breath sounds present bilat coarse sxn pt with min to mod amt off white secs trach site secure ambu bag bedside vent plugged into red outlet will continue to monitor pt on vent
--- NOTE | 2020-03-27 07:20 | NUR ---
BEDSIDE REPORT GIVEN TO AM SHIFT RN FOR CONTINUITY OF CARE.
[2020-03-27 07:25] LABS: WHITE BLOOD COUNT (AUTO) 25.9 K/uL (4.8-10.8)
--- NOTE | 2020-03-27 07:25 | NUR ---
RECEIVED BEDSIDE REPORT FROM MACHINE SEWER RN. PT IS LETHARGIC, SAO TOMEAN SPEAKING. AFEBRILE 97.2F AT THIS TIME. SR ON MONITOR. PALPABLE PULSES TO ALL EXTREMITIES. TRACH TO VENT: A/C PC FIO2 60%, RR 18, PEEP 10. LUNGS SOUND DIMINISHED. BREATHING EVEN AND UNLABORED. DRY BLOOD NOTED ON LIPS, NO ACTIVE BLEEDING NOTED. G-TUBE IN PLACE, NEPRO AT 40 ML/HR, FWF 100 ML Q6H. PICC LINE TO RIGHT UPPER ARM ASYMPTOMATIC, PATENT AND INTACT, RUNNING NS TKO. HD ACCESS TUNNELED CATHETER TO RIGHT CHEST, DRESSING INTACT. RECTAL TUBE IN PLACE, LIQUID BROWN STOOL. HOB AT 30 DEGREES. BED IN LOWEST POSITION LOCKED. CALL LIGHT WITHIN REACH.
[2020-03-27 07:26] LABS: EOSINOPHILS % (MANUAL) 1 % (0-4); LYMPHOCYTES % (MANUAL) 6 % (20-46); MONOCYTES % (MANUAL) 4 % (5-12)
[2020-03-27] MEDS ORDERED: VANCOMYCIN PER PHARMACY MC PRN (08:00)
--- NOTE | 2020-03-27 08:00 | NUR ---
G TUBE RESIDUAL 80ML. ORAL CARE DONE. PERRY CARE DONE.
[2020-03-27] MEDS: VIT-B COMP/VIT-C/FOLIC ACID 1 TAB PO SCH (08:17)
[2020-03-27] MEDS: CHOLECALCIFEROL 1,000 IU TAB NG SCH (08:17)
[2020-03-27] MEDS: POLYVINYL ALCOHOL 1.4% OP 15 ML SOL OP SCH ×3 (08:22→17:01)
[2020-03-27] MEDS: hydrALAZINE 10 MG TAB PO SCH ×3 (08:24→17:02)
[2020-03-27] MEDS: LOSARTAN 50 MG TAB PO SCH ×2 (08:24→20:50)
[2020-03-27] MEDS: METOPROLOL 25 MG TAB PO SCH ×2 (08:24→20:50)
[2020-03-27] MEDS ORDERED: VANCOMYCIN 1,000 MG in DEXTROSE 5% 250 ML IV SCH (09:00)
[2020-03-27] MEDS ORDERED: PANTOPRAZOLE 40 MG INJ VIAL IVP SCH (09:00)
[2020-03-27] MEDS: INSULIN NPH HUMAN ISOPHANE 100 UNIT/ML VIAL SUBQ SCH ×2 (09:50→22:21)
--- NOTE | 2020-03-27 10:27 | NUR ---
RIGHT CHEEK SCAB DRYING OUT AND GLORY WOUND SKIN INTACT. SACRAL/BUTTOCKS IMPROVING RESPONDING TO TREATMENT.
[2020-03-27] MEDS: PIPERACILLIN/TAZOBACTAM 2.25 GM in DEXTROSE 5% 50 ML IV SCH ×2 (13:04→20:01)
--- NOTE | 2020-03-27 14:30 | NUR ---
CLEANED PT, WOUND CARE DONE. ORAL CARE DONE. PT ABLE TO FOLLOW SIMPLE COMMANDS. NOTIFIED DR ISRAEL THAT PT HAS RASH IN THE GROIN. DR ISRAEL WILL PUT IN ORDER.
--- NOTE | 2020-03-27 16:05 | NUR ---
PT BECCA WITH PT'S SON AND FAMILY
--- NOTE | 2020-03-27 17:28 | NUR ---
PT REMAINS ON DOCUMENTED VENT SETTINGS. PT NOT IN ANY DISTRESS AT THIS TIME. VENT ALARMS REMAIN ON AND FUNCTIONING.
--- NOTE | 2020-03-27 18:00 | NUR ---
RECTAL BAG 300ML AT START OF SHIFT, NOW AT 580ML, OUTPUT FOR THE SHIFT IS 280ML. NO URINE NOTED.
--- NOTE | 2020-03-27 19:30 | NUR ---
RECEIVED PT FROM EDNA RN PT TRACH TO VENT AC/PC FIO2 55 RR 18 PEEP 10, RIGHT SYBCALIVAN DUOBLE LUMEN CATH FOR DIALYSIS, RIGHT UPPER ARM PICC LINE INFUSING NS 5ML/HR, PT HAS RECTAL TUBE IN PLACE DRAINING LIQUID BROWN FECES, LUNGS SOUNDS COARSE, S1 AND S2 HEART SOUNDS HEARD, PULSES PALPABLE UPPER AND LOWER EXTREMITIES, BOWEL SOUNDS ACTIVE,SIN IS NON INTACT WITH A SACRAL WOUND COVERED WITH DRESSING AND RIGHT CHEEK SCAB, PT RESTING IN BED WITH EYES OPEN SAFETY PROTOCOLS IN PLACE WILL CONTINUE TO MONITOR PT.
--- NOTE | 2020-03-27 19:35 | NUR ---
RECEIVED PT ON DOCUMENTED SETTINGS. VENT PLUGGED INTO RED OUTLET. BMV AT BEDSIDE. TRACH SECURED AND INTACT. ALARMS SET. STOMA REMAINS CLEAR. PT IS ALERT AND ORIENTATED. WILL CONT TO MONITOR
--- NOTE | 2020-03-27 20:00 | NUR ---
PT REPOSITIONED FROM LEFT TO RIGHT LATERAL, PT RESTING IN BED WITH EYES OPEN WATCHING TV, ABLE TO FOLLOW SIMPLE COMMANDS, WILL CONTINUE TO MONITOR PT
[2020-03-27] MEDS: ATORVASTATIN 20 MG TAB PO SCH (20:49)
[2020-03-27] MEDS: NYSTATIN CRE 100 MU/GM 15 GM TUBE TP SCH (20:53)
--- NOTE | 2020-03-27 21:50 | NUR ---
ALL PT MEDS GIVEN, PT FACE TIMED WITH FAMILY, WILL CONTINUE TO MONITOR PT
[2020-03-28] VITALS (23 sets, daily range): BP systolic 93–157; BP diastolic 43–69
[2020-03-28] MEDS: BLOOD GLUCOSE MONITORING 1 DEV DEV FS SCH ×6 (00:24→20:00)
--- NOTE | 2020-03-28 00:30 | NUR ---
TITRATE PEEP FROM 10 TO 8. SATURATION STILL GOOD. WILL CONT TO MONITOR
[2020-03-28] MEDS: INSULIN LISPRO SLIDING SCALE 100 UNITS/ML VIAL SUBQ PRN ×5 (00:36→21:17)
[2020-03-28] MEDS: ALBUTEROL HFA MDI 90 MCG/ACTUATION 8 GM INH SCH ×4 (00:49→19:55)
[2020-03-28] MEDS: Z-GUARD PASTE TP SCH ×2 (01:38→12:21)
--- NOTE | 2020-03-28 04:30 | NUR ---
PT BED BATH AND MEDS GIVEN, AND REPOSITIONED IN BED, VITALS STABLE WILL CONTINUE TO MONITOR PT
[2020-03-28] MEDS: ALUMINUM HYDROXIDE 64 MG/ML BOTTLE PO SCH ×3 (04:56→20:26)
[2020-03-28] MEDS: PIPERACILLIN/TAZOBACTAM 2.25 GM in DEXTROSE 5% 50 ML IV SCH ×3 (04:56→21:07)
[2020-03-28] MEDS: METOCLOPRAMIDE 10 MG/2 ML INJ VIAL IVP SCH ×3 (04:56→20:26)
--- NOTE | 2020-03-28 05:45 | NUR ---
PT REMAINS ON DOCUMENTED SETTINGS. TRACH SECURED AND INTACT. PATENT AIRWAY. PT IS IN NO DISTRESS. WILL CONT TO MONITOR
--- NOTE | 2020-03-28 06:00 | NUR ---
PT RECTAL TUBE AT 800ML FROM 580 FOR A TOTAL OF OF 220ML DURING SHIFT
[2020-03-28 06:13] LABS: HEMATOCRIT 23.5 % (36-48); HEMOGLOBIN 7.8 g/dL (12.0-16.0); MEAN CORPUSCULAR HEMOGLOBIN 30 pg (27-31); MEAN CORPUSCULAR HGB CONC 33 g/dL (33-37); MEAN CORPUSCULAR VOLUME 89.5 fL (80-94); PLATELET COUNT (AUTO) 144 K/uL (140-450); RED BLOOD CELL COUNT(AUTO) 2.63 MIL/uL (4.20-5.40); RED CELL DISTRIBUTION WIDTH 16.1 % (11.6-13.7); WHITE BLOOD COUNT (AUTO) 23.1 K/uL (4.8-10.8)
[2020-03-28 06:33] LABS: ALBUMIN 1.5 g/dL (3.4-5.0); ANION GAP 13.1 (8-16); CARBON DIOXIDE 25.8 mmol/L (21-32); CREATININE 3.2 mg/dL (0.6-1.3); MAGNESIUM 1.8 mg/dL (1.8-2.4); PHOSPHORUS 4.9 mg/dL (2.5-4.9); POTASSIUM 3.9 mmol/L (3.5-5.1); TOTAL BILIRUBIN 0.4 mg/dL (0.0-1.0)
[2020-03-28 07:01] LABS: EOSINOPHILS % (MANUAL) 2 % (0-4); MONOCYTES % (MANUAL) 6 % (5-12)
[2020-03-28 07:02] LABS: LYMPHOCYTES % (MANUAL) 5 % (20-46)
--- NOTE | 2020-03-28 07:30 | NUR ---
RECEIVED CHANGE OF SHIFT FROM SUPERVISOR ACCOUNTS RECEIVABLE NURSE. PT IS ON SOFT WRIST RESTRAINTS. SR ON MONITOR. B/P135/62 HR 87 RATE 30 SPO2 100% PT IS TRACH TO VENT SETTINGS ARE ACPC FIO2 55% PINSP 55 RATE 18 TINSP 0.7 PEEP 8. PT HAS GTUBE TO CONTINUOUS FEEDING NEPRO 40 ML/HR W/ FWF 100ML 6QH. PT HAS RECTAL TUBE MARKED AT 800. WILL CHANGE BAG. PT HAS JULIO C PICC AND RIGHT SUBCLAVIAN CATHETER. BED IS LOCKED, HOB 30 DEGREES IN LOW POSITION. WILL CONTINUE TO MONITOR.
--- NOTE | 2020-03-28 07:38 | NUR ---
DR. DESHPANDE AT PT BEDSIDE
--- NOTE | 2020-03-28 08:08 | NUR ---
WILL NOT ADMINISTER SCHEDULED METOPROLOL PER DR. DESHPANDE. PT WILL RECEIVE HEMODIALYSIS TODAY
[2020-03-28] MEDS: LOSARTAN 50 MG TAB PO SCH ×2 (08:30→20:27)
[2020-03-28] MEDS: VIT-B COMP/VIT-C/FOLIC ACID 1 TAB PO SCH (08:30)
[2020-03-28] MEDS: POLYVINYL ALCOHOL 1.4% OP 15 ML SOL OP SCH ×3 (08:30→17:40)
[2020-03-28] MEDS: CHOLECALCIFEROL 1,000 IU TAB NG SCH (08:30)
[2020-03-28] MEDS: EPOETIN ALFA 10,000 UNITS/ML VIAL IV SCH (08:30)
[2020-03-28] MEDS: INSULIN NPH HUMAN ISOPHANE 100 UNIT/ML VIAL SUBQ SCH ×2 (08:30→21:00)
[2020-03-28] MEDS: PANTOPRAZOLE 40 MG INJ VIAL IVP SCH (08:31)
[2020-03-28] MEDS: NYSTATIN CRE 100 MU/GM 15 GM TUBE TP SCH ×2 (08:31→20:28)
[2020-03-28] MEDS: METOPROLOL 25 MG TAB PO SCH ×2 (08:31→20:27)
--- NOTE | 2020-03-28 08:45 | NUR ---
PT DESATURATED, RT AT BEDSIDE, INFORMED NURSE THAT FIO2 WAS INCREASED FROM 55% TO 60% AND PEEP WAS INCREASED FROM 8 TO 10.
--- NOTE | 2020-03-28 08:56 | NUR ---
PT BEGAN TO DESAT AT 07:45 INCREASED FIO2 TO 60% AND PEEP +10. PT SAT REMAINED STABLE AT 96%. WILL CONTINUE TO MONITOR.
--- NOTE | 2020-03-28 09:23 | NUR ---
PT EYES ARE PERRL. 3MM. PT IS ALBANIAN SPEAKING, ABLE TO FOLLOW SIMPLE COMMANDS WHEN PANTOMIMED. PT WAS ABLE TO SQUEEZE NURSES HANDS VERY WEAKLY. PT ABLE TO OPEN MOUTH. BREATH SOUNDS ARE CLEAR THROUGHOUT. EQUAL RISE AND FALL OF CHEST. NO SIGNS OF APPARENT DISTRESS. TRACH DRESSING IS DCI. S1S2 HEARD. +2 RADIAL PULSES FELT. SKIN UNDERNEATH SOFT WRIST RESTRAINTS ARE UNINJURED. CAP REFILL <3 SECONDS. BG 215. ADMINISTERED 4 UNITS HUMALOG. PT HAS ACTIVE BOWEL SOUNDS. PT HAS < 10 ML OF GASTRIC RESIDUALS. PT HAS +1 PEDAL PULSES. SCD WAS ON. PT HAS RECTAL TUBE, W/ 800 ML IN BAG. CHANGED OUT RECTAL TUBE BAG. WILL CONTINUE TO MONITOR.
--- NOTE | 2020-03-28 09:35 | NUR ---
DR. URIOSTEGUI AT PT WINDOW
--- NOTE | 2020-03-28 12:30 | NUR ---
BG 185. ADMINISTERED 2 UNITS HUMALOG FOR COVERAGE. AFTERNOON MEDS ADMINISTERED. WILL CONTINUE TO MONITOR.
--- NOTE | 2020-03-28 13:20 | NUR ---
PT VITAL SIGNS STABLE AT THIS TIME. SR ON MONITOR. PT APPEARS TO BE RESTING, NO APPARENT SIGNS OF DISTRESS. PT HAS TELEVISION ON. PT AROUSABLE TO LIGHT TOUCH, ABLE TO FOLLOW SIMPLE COMMANDS, SUCH OPENING MOUTH AND SQUEEZING HAND. NO UO. RECTAL BAG MEASURED AT 100ML. BED IS LOCKED. HOB 30 DEGREES. WILL CONTINUE TO MONITOR.
--- NOTE | 2020-03-28 14:07 | NUR ---
PT SAT 100. RETURNED PT SETTING BACK TO 55% PEEP +8. SAT STABLE AT 96. WILL CONTINUE TO MONITOR.
--- NOTE | 2020-03-28 15:18 | NUR ---
WOUND CARE IS DONE, SACRAL DRESSING IS DCI, WAS NOT CHANGED. NS WAS USED TO IRRIGATE WOUND AND TO CLEAN OUT OLD ZGUARD. NEW ZGUARD WAS APPLIED. PT'S DAUGHTER IN LAW CALLED ICU. WILL CALL BACK AT 1730 TO COORDINATE VIDEO CALL W/ PATIENT.
--- NOTE | 2020-03-28 16:02 | NUR ---
DIALYSIS NURSE AT BEDSIDE. STARTED DIALYSIS.
--- NOTE | 2020-03-28 18:13 | NUR ---
PT'S FAMILY CALLED PT'S PHONE TO VIDEO CHAT W/ PT. NURSE WAS PRESENT TO HOLD PHONE. PT WAS LOOKING AT PHONE ATTENTIVELY. RECTAL TUBE OUTPUT 200. HEMODIALYSIS STILL ONGOING. VITAL SIGNS ARE STABLE. WILL CONTINUE TO MONITOR.
--- NOTE | 2020-03-28 18:58 | NUR ---
DIALYSIS COMPLETE. 2.6L OUT
--- NOTE | 2020-03-28 19:15 | NUR ---
BEDSIDE REPORT RECEIVED FROM AM SHIFT RN. PT HAS EYES CLOSED, RESPIRATIONS EVEN AND UNLABORED. CHEST RISE IS SYMMETRICAL. AROUSABLE TO NAME. SR ON MONITOR. TRACH TO VENT. AC/PC MODE. FIO2 55%, RATE 18, PEEP 8. R SUBCLAVIAN HD CATH INTACT, PATENT. JULIO C PICC INFUSING TKO, NS 5ML/HR. RECTAL TUBE IN PLACE. GTUBE TO FEEDING. RESIDUALS 300ML, HELD FEEDING. SKIN NON INTACT, SEE WOUND ASSESSMENT. PT ON BILAT, SOFT WRIST RESTRAINTS. HOB 30 DEGREES. BED LOCKED IN LOWEST POSITION. WILL CONTINUE TO MONITOR.
--- NOTE | 2020-03-28 19:27 | NUR ---
RECEIVED PT FROM DAY SHIFT ON DOCUMENTED SETTINGS. VENT PLUGGED INTO RED OUTLET. BMV AT BEDSIDE. TRACH SECURED AND INTACT. ALARMS LOUD AND FUNCTIONAL. PT IS IN NO DISTRESS. WILL CONT TO MONITOR
[2020-03-28] MEDS: ATORVASTATIN 20 MG TAB PO SCH (20:27)
--- NOTE | 2020-03-28 21:00 | NUR ---
SCHEDULED MEDICATIONS GIVEN. PT REPOSITIONED. HOB 30 DEGREES. SAFETY PRECAUTIONS IN PLACE. BED LOCKED IN LOWEST POSITION. WILL CONTINUE TO MONITOR.
--- NOTE | 2020-03-28 23:16 | NUR ---
PT AWAKE, FOLLOWS SIMPLE COMMANDS. RESPIRATIONS EVEN AND UNLABORED. CHEST RISE IS SYMMETRICAL. SAFETY PRECAUTIONS IN PLACE. WILL CONTINUE TO MONITOR.
[2020-03-29] VITALS (24 sets, daily range): BP systolic 87–129; BP diastolic 43–81
[2020-03-29] MEDS: INSULIN LISPRO SLIDING SCALE 100 UNITS/ML VIAL SUBQ PRN
--- NOTE | 2020-03-29 | NUR ---
RESIDUALS 5ML. FEEDING RESTARTED. BLOOD SUGAR, 203. 4 UNITS OF HUMALOG GIVEN. WILL CONTINUE TO MONITOR.
[2020-03-29] MEDS: Z-GUARD PASTE TP SCH ×2 (01:00→12:15)
[2020-03-29] MEDS: ALBUTEROL HFA MDI 90 MCG/ACTUATION 8 GM INH SCH ×4 (01:28→19:46)
--- NOTE | 2020-03-29 02:12 | NUR ---
PT AWAKE, CALM. RESPIRATIONS EVEN AND UNLABORED. WILL CONTINUE TO MONITOR.
[2020-03-29] MEDS: BLOOD GLUCOSE MONITORING 1 DEV DEV FS SCH ×6 (04:00→20:35)
[2020-03-29] MEDS: METOCLOPRAMIDE 10 MG/2 ML INJ VIAL IVP SCH ×3 (04:05→20:36)
[2020-03-29] MEDS: ALUMINUM HYDROXIDE 64 MG/ML BOTTLE PO SCH ×3 (04:05→20:39)
[2020-03-29] MEDS: PIPERACILLIN/TAZOBACTAM 2.25 GM in DEXTROSE 5% 50 ML IV SCH ×3 (04:06→20:36)
--- NOTE | 2020-03-29 04:12 | NUR ---
PT CLEANED, REPOSITIONED. PT AWAKE, CALM. RESPIRATIONS EVEN AND UNLABORED. BED LOCKED IN LOWEST POSITION. SAFETY PRECAUTIONS IN PLACE. WILL CONTINUE TO MONITOR.
--- NOTE | 2020-03-29 05:35 | NUR ---
PT REMAINS ON DOCUMENTED SETTINGS. TRACH SECURED AND INTACT. PATENT AIRWAY. PT IS ALERT AND ORIENTATED. PT IS IN NO DISTRESS. WILL CONT TO MONITOR
[2020-03-29 06:24] LABS: HEMATOCRIT 23.4 % (36-48); HEMOGLOBIN 7.7 g/dL (12.0-16.0); MEAN CORPUSCULAR HEMOGLOBIN 29 pg (27-31); MEAN CORPUSCULAR HGB CONC 33 g/dL (33-37); MEAN CORPUSCULAR VOLUME 88.6 fL (80-94); PLATELET COUNT (AUTO) 184 K/uL (140-450); RED BLOOD CELL COUNT(AUTO) 2.64 MIL/uL (4.20-5.40); WHITE BLOOD COUNT (AUTO) 23.7 K/uL (4.8-10.8)
[2020-03-29 06:31] LABS: ANION GAP 9.7 (8-16); CARBON DIOXIDE 30.9 mmol/L (21-32); CREATININE 1.9 mg/dL (0.6-1.3)
[2020-03-29 06:42] LABS: POTASSIUM 2.6 mmol/L (3.5-5.1)
[2020-03-29] MEDS ORDERED: POTASSIUM CHLORIDE 40 MEQ, LIDOCAINE MPF 1% 25 MG in NACL 0.9% 250 ML IV ONE (06:50)
[2020-03-29] MEDS ORDERED: POTASSIUM CHLORIDE 10 MEQ TABER PO ONE ×2 (06:50→08:33)
--- NOTE | 2020-03-29 06:53 | NUR ---
LAB REPORTING CRITICAL RESULT OF BUN 67 WHICH TRENDING DOWN FROM [address] DESHPANDE AWARE. ALSO AWARE PT HAS HD 03/28/20. PER WILL F/U.
--- NOTE | 2020-03-29 07:23 | NUR ---
BEDSIDE REPORT GIVEN TO AM SHIFT RN FOR CONTINUITY OF CARE.
--- NOTE | 2020-03-29 07:25 | NUR ---
RECEIVED REPORT FROM NIGHT NURSE. PT IN BED SLEEPING, NO DISTRESS NOTED. RESPIRATIONS EVEN AND UNLABORED ON TRACH TO VENT FIO2 35%, RR18 AND PEEP 5. DROPLET PRECAUTIONS IN PLACE. IRREGULAR HEART BEAT WITH PVCS AND RUNS OF VTACH, ON AMIODARONE DRIP 1MG/H. L UA PICC IN PLACE PATENT AND ASYMPTOMATIC INFUSING PER ORDER. R SUBCLAVIAN TUNNELED CATH FOR HS IN PLACE. PERRY AND RECTAL TUBE IN PLACE. SKIN NON INTACT WITH FACIAL CLOSED WOUNDS, SACRAL PRESSURE ULCER PRESENT AND MULTIPLE DRYNESS AREAS AROUND ABDOMINAL FOLDS, GENITALS AND ARMPITS. SAFETY MEASURES IN PLACE, WILL CONTINUE TO MONITOR CLOSELY. Addendum: 03/29/20 at 0802 by Soham Nash RN INCORRECT PT. IGNORE NOTE.
--- NOTE | 2020-03-29 07:25 | NUR ---
RECEIVED REPORT FROM NIGHT NURSE. PT AWAKE, NO DISTRESS NOTED, RESPIRATIONS EVEN AND UNLABORED ON TRACH TO VENT IN ACPC MODE 55% FIO2, R18, PEEP 8. IV IN R UA PICC PATENT AND ASYMPTOMATIC INFUSING PER ORDER. R SUBCLAVIAN TUNNELED CATH FOR HD. SKIN IS NON INTACT WITH FACIAL CHEEK WOUNDS BILATERALLY OPEN TO AIR, SACRAL WOUND PRESENT WITH OPTIFOAM. PERRY AND RECTAL TUBE IN PLACE. DROPLET PRECAUTIONS IN PLACE. GTUBE IN PLACE INFUSING NEPRO AT 40ML/H WATER FLUSH 100ML Q6H. SINUS RHYTHM ON HEART MONITOR. FULL CODE. SAFETY MEASURES IN PLACE. WILL CONTINUE TO MONITOR CLOSELY.
[2020-03-29 07:46] LABS: BASOPHILS % (MANUAL) 0 % (0-2); EOSINOPHILS % (MANUAL) 0 % (0-4); LYMPHOCYTES % (MANUAL) 6 % (20-46); MONOCYTES % (MANUAL) 5 % (5-12)
[2020-03-29] MEDS: PANTOPRAZOLE 40 MG INJ VIAL IVP SCH (08:28)
[2020-03-29] MEDS: LOSARTAN 50 MG TAB PO SCH ×2 (08:28→20:38)
[2020-03-29] MEDS: VIT-B COMP/VIT-C/FOLIC ACID 1 TAB PO SCH (08:28)
[2020-03-29] MEDS: CHOLECALCIFEROL 1,000 IU TAB NG SCH (08:31)
[2020-03-29] MEDS: METOPROLOL 25 MG TAB PO SCH ×2 (08:31→20:38)
--- NOTE | 2020-03-29 08:49 | NUR ---
MEDICATIONS ADMINISTERED PER ORDER, PT TOLERATED WELL. TEMP 98.8. VAP ORAL CARE GIVEN. PT REPOSITIONED. RESIDUAL CHECK 5ML, TUBE FEEDING CONTINUED. PT DENIES PAIN.
[2020-03-29] MEDS: POLYVINYL ALCOHOL 1.4% OP 15 ML SOL OP SCH ×3 (09:18→17:56)
[2020-03-29] MEDS: INSULIN NPH HUMAN ISOPHANE 100 UNIT/ML VIAL SUBQ SCH ×2 (09:18→21:24)
[2020-03-29] MEDS: NYSTATIN CRE 100 MU/GM 15 GM TUBE TP SCH ×2 (09:18→20:39)
--- NOTE | 2020-03-29 09:54 | NUR ---
(03/29/20) RD FOLLOW UP COMPLETED PLEASE REFER TO NUTRITION PROGRESS NOTE UNDER CARE ACTIVITY FOR ESTIMATED NUTRITION NEEDS. RD RECOMMENDATIONS: 1. CONTINUE NEPRO @40 ML/HR WITH FWF 100 ML Q6H TOLERATED. THIS PROVIDES 960 ML TOTAL VOLUME (1360 ML WITH FWF), 1728 KCAL, 77 GM PROTEIN. 2. CONTINUE PROSOURCE (1 PACKET) AND DIANE (1 PACKET) BID TOLERATED. THIS PROVIDES A TOTAL OF 300 KCAL AND 63 GM PROTEIN TOTAL TO HELP MEET WOUND HEALING NEEDS. RD WILL F/U 2-3 DAYS; HIGH RISK. BREEKET GREGG, MS, RDN
--- NOTE | 2020-03-29 11:53 | NUR ---
TEMP 97.9. PT REPOSITIONED. VAP ORAL CARE GIVEN. K RIDER GIVEN. NO DISTRESS NOTED, PT DENIES PAIN. WILL CONTINUE TO MONITOR.
--- NOTE | 2020-03-29 15:21 | NUR ---
PT CLEANED AND REPOSITIONED AT THIS TIME. VAP ORAL CARE GIVEN. EYE DROPS ADMINISTERED. BLOOD SUGAR 111, NO COVERAGE NEEDED.
--- NOTE | 2020-03-29 17:54 | NUR ---
PT REPOSITIONED AND MADE COMFORTABLE. VAP ORAL CARE GIVEN. WILL CONTINUE TO MONITOR.
[2020-03-29 18:39] LABS: ANION GAP 12.7 (8-16); CARBON DIOXIDE 26.3 mmol/L (21-32); CREATININE 2.5 mg/dL (0.6-1.3)
--- NOTE | 2020-03-29 19:10 | NUR ---
REPORT GIVEN TO NIGHT NURSE FOR CONTINUITY OF CARE.
--- NOTE | 2020-03-29 19:15 | NUR ---
RECEIVED REPORT FROM EDNA RN, PT TRACH TO VENT AC/PC FIO2 55 RR 18 PEEP 8, JULIO C PICC LINE INFUSING NS 5ML/HR, RECTAL TUBE DRAINING BROWN LIQUID FECES, G TUBE TO FEEDING NEPRO 40ML/HR FWF 100ML Q6H, WITH 5ML RESIDUALS, LUNG SOUNDS COARSE S1 AND S2 HEART SOUNDS HEARD, BOWEL SOUNDS ACTIVE, PULSES PALPABLE UPPER AND LOWER EXTREMITIES, PT OPENS EYES SPONTANEOUSLY, ABLE TO FOLLOW SIMPLE TURKISH COMMANDS, DENIES PAIN, SAFETY PROTOCOLS IN PLACE WILL CONTINUE TO MONITOR PT
--- NOTE | 2020-03-29 19:35 | NUR ---
RECEIVED REPORT FROM AM SHIFT. PATIENT SEEN AND ASSESSED. PATIENT TRACH TO VENT WITH PORTEX SIZE 7 AND SECURED WITH TRACH TIE. AUSCULTATION REVEALS BILATERAL RALES BREATH SOUNDS. NOTICED ADEQUATE BILATERAL CHEST RISE AND FALL. PATIENT ON VENT SETTINGS AC/PC 15,R 18, +8, 55% WITH SPO2 OF 94%. VENT PLUGGED IN RED OUTLET, HOB > 30 DEGREES, AMBU BAG AT BEDSIDE, AND ALARMS SET AND AUDIBLE. PATIENT IS IN NO RESPIRATORY DISTRESS AT THIS TIME. MDI TX GIVEN ORDERED VIA INLINE AND PATIENT TOLERATED WELL WITH NO ADVERSE REACTION. SUCTION ROONEY THICK SECRETIONS FROM TUBE. AIRWAY IS PATIENT. WILL CONTINUE TO MONITOR PATIENT.
[2020-03-29] MEDS: ATORVASTATIN 20 MG TAB PO SCH (20:38)
--- NOTE | 2020-03-29 21:00 | NUR ---
ALL PT MEDS GIVEN, WOUND CRE PHOTOS TAKEN, PT REPOSITIONED IN BED, DENIES PAIN, WILL CONTINUE TO MONITOR PT.
--- NOTE | 2020-03-29 22:51 | NUR ---
TRIED TO PREFORM VAP ORAL CARE FOR PT, SHE CLOSED MOUTH AND REFUSED TO OPEN MOUTH
[2020-03-30] VITALS (23 sets, daily range): BP systolic 92–176; BP diastolic 48–109
[2020-03-30] MEDS: BLOOD GLUCOSE MONITORING 1 DEV DEV FS SCH ×7 (00:36→23:56)
--- NOTE | 2020-03-30 00:37 | NUR ---
PT FACETIMED WITH FAMILY, REPOSTIONED PT IN BED, ENCOURAGED PT TO REST, WILL CONTINUE TO MONITOR PT
--- NOTE | 2020-03-30 01:51 | NUR ---
FiO2 TITRATED TO 50% WITH SPO2 OF 94%. WILL CONTINUE TO MONITOR PATIENT.
[2020-03-30] MEDS: ALBUTEROL HFA MDI 90 MCG/ACTUATION 8 GM INH SCH ×4 (01:52→19:40)
[2020-03-30] MEDS: PIPERACILLIN/TAZOBACTAM 2.25 GM in DEXTROSE 5% 50 ML IV SCH ×3 (04:52→20:02)
[2020-03-30] MEDS: METOCLOPRAMIDE 10 MG/2 ML INJ VIAL IVP SCH ×3 (04:52→20:02)
[2020-03-30] MEDS: ALUMINUM HYDROXIDE 64 MG/ML BOTTLE PO SCH ×3 (04:53→20:02)
--- NOTE | 2020-03-30 05:15 | NUR ---
PT BED BATH GIVEN AND PT REPOSITIONED, MEDS GIVEN, PT RESTING IN BED WATCHING TV WILL CONTINUE TO MONITOR PT
--- NOTE | 2020-03-30 07:20 | NUR ---
ENDORSED PT TO DAY SHIFT FOR CONTINUITY OF CARE
--- NOTE | 2020-03-30 07:21 | NUR ---
RECEIVED BEDSIDE REPORT FROM INDUSTRIAL GREEN SYSTEMS DESIGNER NURSE, PT IS AAOX3, TANZANIAN SPEAKING ONLY, FOLLOW COMMANDS SOMETIMES, PERRL, VSS, DENIES PAIN, TRACH to VENT WITH AC PC FIO2 50%, P 8, R 18, NO S/S OF DISTRESS, CLEAR LUNG SOUNDS JUANPABLO. SR ON WATER SUPPLY TECHNICIAN, SOFT ROUND ABDOMEN WITH HYPOACTIVE BOWEL SOUNDS, GT IN PLACE, FEEDING WITH NEPRO AT 40 ML , 50 ML OF RESIDUALS NOTED, AURIC, DIARRHEA NOTED, RECTAL TUBE IN PLACE, SKIN IS WARM AND DRY TO TOUCH, OPEN WOUND PRESENT (SEE WOUND ASSESSMENT), HD DIALYSIS CATHETER TO RIGHT SUBCLAVIAN, DRESSING C/D/I, PICC LINE TO RIGHT UPPER ARM, PATENT AND KVO, JUANPABLO. SOFT WRIST RESTRAIN FOR SAFETY, HOB ELEVATED 30 DEGREES, SAFETY MEASURES IN PLACE, CALL LIGHT WITHIN REACH, WILL CONTINUE TO MONITOR.
[2020-03-30] MEDS: PANTOPRAZOLE 40 MG INJ VIAL IVP SCH (08:36)
[2020-03-30] MEDS: CHOLECALCIFEROL 1,000 IU TAB NG SCH (08:36)
[2020-03-30] MEDS: LOSARTAN 50 MG TAB PO SCH ×2 (08:37→20:03)
[2020-03-30] MEDS: POLYVINYL ALCOHOL 1.4% OP 15 ML SOL OP SCH ×3 (08:37→16:46)
[2020-03-30] MEDS: NYSTATIN CRE 100 MU/GM 15 GM TUBE TP SCH ×2 (08:38→20:42)
[2020-03-30] MEDS: METOPROLOL 25 MG TAB PO SCH ×2 (08:38→20:03)
--- NOTE | 2020-03-30 08:45 | NUR ---
SCHEDULED MEDICATION GIVEN, BP MEDICATION HELD AT THIS TIME DUE TO HD, HD NURSE AT BEDSIDE.
[2020-03-30] MEDS: INSULIN NPH HUMAN ISOPHANE 100 UNIT/ML VIAL SUBQ SCH ×2 (09:06→20:41)
[2020-03-30] MEDS: INSULIN LISPRO SLIDING SCALE 100 UNITS/ML VIAL SUBQ PRN ×4 (09:07→20:42)
--- NOTE | 2020-03-30 10:00 | NUR ---
ON HD, NO S/S OF DISTRESS, VSS, DENIES PAIN, POSITION CHANGED FOR OFF LOAD PRESSURE.
[2020-03-30 11:56] LABS: ALBUMIN 1.6 g/dL (3.4-5.0); ANION GAP 7.1 (8-16); CARBON DIOXIDE 32.2 mmol/L (21-32); CREATININE 1.3 mg/dL (0.6-1.3); TOTAL BILIRUBIN 0.3 mg/dL (0.0-1.0)
--- NOTE | 2020-03-30 12:00 | NUR ---
NO CHANGE OF CONDITION, VSS, DENIES PAIN, ORAL CARE PROVIDED, POSITION CHANGED FOR OFF LOAD PRESSURE.
[2020-03-30 12:25] LABS: POTASSIUM 2.3 mmol/L (3.5-5.1)
--- NOTE | 2020-03-30 14:00 | NUR ---
ASLEEP IN BED, NO S/S OF DISTRESS, VSS, FLACC 0, WOUND CARE PROVIDED, POSITION CHANGED FOR OFF LOAD PRESSURE.
[2020-03-30 14:57] LABS: ANION GAP 5.7 (8-16); CARBON DIOXIDE 31.8 mmol/L (21-32); CREATININE 1.3 mg/dL (0.6-1.3)
[2020-03-30 15:00] LABS: POTASSIUM 2.5 mmol/L (3.5-5.1)
[2020-03-30] MEDS ORDERED: POTASSIUM CHLORIDE 40 MEQ, LIDOCAINE MPF 1% 25 MG in NACL 0.9% 250 ML IV SCH ×2 (15:30→20:30)
--- NOTE | 2020-03-30 16:00 | NUR ---
PM CARE AND ORAL CARE PROVIDED, NO S/S OF DISTRESS, PT TOLERATED WELL, VSS, DENIES PAIN, POSITION CHANGED FOR OFF LOAD PRESSURE.
[2020-03-30] MEDS ORDERED: POTASSIUM CHL 40 MEQ/ D5-1/2NS 1,000 ML IV SCH (16:50)
--- NOTE | 2020-03-30 19:19 | NUR ---
REPORT GIVEN TO ANODISER NURSE FOR CONTINUE OF CARE, PT IS IN STABLE CONDITION AT THIS TIME.
--- NOTE | 2020-03-30 19:35 | NUR ---
RECEIVED REPORT FROM DAYSMDFT NURSE FOR CONTINUITY OF CARE. PATIENT IS AWAKE AND ALERT, OPENS EYES SPONTANEOUSLY ABLE TO TRACK, PERRL, 3MM BRISK. FOLLOWS COMMANDS. TRACH TO VENT, ACPC FI02 50% RATE 18 PEEP 8. TACHYPNEIC RESPIRATIONS 35. LUNG SOUNDS RHONCHI. SUCTIONED CREAMY SECRETIONS. S1S2, HR ELEVATED 103 BPM. RIGHT UPPER CHEST TUNNELED CATH FOR HD. NEW DRESSING DRY AND INTACT. JULIO C PICC IN PLACE, INFUSING KCL @ 68ML/HR. LINE PATENT, NO SYMPTOMS. GTUBE CONNECTED TO FEEDING, NEPRO @ 40ML/HR. ABDOMEN SOFT AND NONTENDER, ACTIVE BOWEL SOUNDS. RECTAL TUBE IN PLACE, BROWN LOOSE STOOL IN BAG. SKIN WARM AND DRY, AFEBRILE, 97.2 TEMPORAL, NOT INTACT, SCAB TO LEFT EAR, RIGHT EAR SCAB IS HEALED. BILATERAL PRESSURE INJURIES TO CHEEKS, RIGHT SIDE SCABBING, LEFT SIDE VERY SMALL SCAB MOSTLY HEALED. SACRUM HAS OPEN WOUNDS, SMALL SKIN TEARS AND REDNESS. OPTIFOAM IN PLACE. SCD's IN PLACE. BILATERAL MITTENS IN PLACE. PATIENT ABLE TO MOVE ALL EXTREMITIES. SPECIALTY MATTRESS IN PLACE. BED LOCKED AND IN LOWEST POSITION. DROPLET PRECAUTIONS IN PLACE. SIDERAILS UP, HOB 30 DEGREES. WILL CONTINUE TO MONITOR.
[2020-03-30] MEDS: ATORVASTATIN 20 MG TAB PO SCH (20:02)
--- NOTE | 2020-03-30 21:14 | NUR ---
GASTRIC RESIDUALS 60 ML, RESIDUALS ARE BLACK AND GRAINY. NO SIGNS OF BLEEDING AT MOUTH OR NOSE. RECTAL TUBE IN PLACE, DARK BROWN AND LIQUID. PROVIDED ORAL CARE. ADMINISTERED MEDICATIONS, TOLERATED WELL. SIDERAILS UP, HOB 30 DEGREES. TURNED AND POSITIONED. PATIENT ABLE TO MOVE LEGS AND ARMS.
[2020-03-30] MEDS: MORPHINE SULFATE 2 MG/ML SYR IVP PRN (23:30)
--- NOTE | 2020-03-30 23:30 | NUR ---
PATIENT ABLE TO FOLLOW SIMPLE COMMANDS, CAN NOD HEAD YES AND NO AND ABLE TO MOUTH SOME WORDS. PATIENT NODDING HEAD YES TO PAIN, AND RUBBING STOMACH. WILL ADMINISTER PRN MEDS. ASSESSED SKIN AT RESTRAINTS, NO INJURIES NOTED. PATIENT REACHES FOR TRACH BUT DOESNT TRY TO PULL OUT, JUST MOVING TRACH. WILL KEEP RESTRAINTS TO BE SAFE.
[2020-03-31] VITALS (22 sets, daily range): BP systolic 96–135; BP diastolic 42–71
[2020-03-31] MEDS: INSULIN LISPRO SLIDING SCALE 100 UNITS/ML VIAL SUBQ PRN (00:49)
--- NOTE | 2020-03-31 01:15 | NUR ---
PATIENT ABLE TO TURN LEFT AND RIGHT. EYES OPEN, WOUND ASSESSMENT COMPLETE. DRESSING AT SACRUM DRY AND INTACT. PROVIDED BARRIER CREAM TO SKIN AND GROIN FOLDS. PATIENT DENIES PAIN. AWAKE IN BED, PATIENT ENCOURAGING REST AND SLEEP.
[2020-03-31] MEDS: ALBUTEROL HFA MDI 90 MCG/ACTUATION 8 GM INH SCH ×3 (01:20→19:31)
[2020-03-31 01:25] LABS: ANION GAP 8.6 (8-16); CARBON DIOXIDE 27.9 mmol/L (21-32); CREATININE 1.7 mg/dL (0.6-1.3); POTASSIUM 5.5 mmol/L (3.5-5.1)
--- NOTE | 2020-03-31 03:15 | NUR ---
PT FINALLY RESTING, NOT MOVING AROUND IN BED, EYES ARE CLOSED, VISIBLE CHEST RISE AND FALL. RESPIRATIONS ARE 24. HEART RATE IN 80's. FLACC 0. BED LOCKED AND IN LOWEST POSITION, VENT TUBE WITH SLACK, SIDERAILS UP. WILL CONTINUE TO MONITOR.
[2020-03-31] MEDS: BLOOD GLUCOSE MONITORING 1 DEV DEV FS SCH ×5 (04:00→20:30)
--- NOTE | 2020-03-31 04:45 | NUR ---
SPONGE BATH, ORAL CARE, AND SKIN CARE PROVIDED. PATIENT TOLERATED WELL. PT FOLLOWS COMMANDS, WILL HELP TURN AND HELP MOVE HEAD/ARMS. CHANGED DRESSING TO SACRUM. APPLIED NYSTATIN TO GROIN FOLDS. PATIENT DENIES PAIN. CHECKED RESIDUALS, ONLY 10ML, NOT BLACK SECRETIONS ANYMORE, RESIDUALS LOOKS LIKE THE TUBE FEEDING. REMOVED SCD's AND PERFORMED SKIN CARE AND ROM EXERCISES. TURNED AND REPOSITIONED. SAFETY MEASURES IN PLACE.
[2020-03-31] MEDS: PIPERACILLIN/TAZOBACTAM 2.25 GM in DEXTROSE 5% 50 ML IV SCH ×3 (05:53→21:40)
[2020-03-31] MEDS: ALUMINUM HYDROXIDE 64 MG/ML BOTTLE PO SCH ×3 (05:53→21:40)
[2020-03-31] MEDS: METOCLOPRAMIDE 10 MG/2 ML INJ VIAL IVP SCH ×3 (05:53→21:40)
[2020-03-31 06:25] LABS: BASOPHILS # (AUTO) 0.1 K/uL (0.00-0.22); BASOPHILS % (AUTO) 0.7 % (0.0-2.0); EOSINOPHILS # (AUTO) 0.2 K/uL (0-0.4); EOSINOPHILS % (AUTO) 1.3 % (0.0-4.0); LYMPHOCYTES # (AUTO) 0.9 K/uL (2.5-16.5); MEAN CORPUSCULAR HEMOGLOBIN 29 pg (27-31); MEAN CORPUSCULAR HGB CONC 32 g/dL (33-37); MEAN CORPUSCULAR VOLUME 89.8 fL (80-94); MONOCYTES # (AUTO) 0.9 K/uL (0.8-1.0); MONOCYTES % (AUTO) 5.5 % (1.7-9.3); NEUTROPHILS # (AUTO) 13.7 K/uL (1.8-7.7); NEUTROPHILS % (AUTO) 86.5 % (42.2-75.2); PLATELET COUNT (AUTO) 210 K/uL (140-450); RED BLOOD CELL COUNT(AUTO) 2.19 MIL/uL (4.20-5.40); RED CELL DISTRIBUTION WIDTH 16.3 % (11.6-13.7); WHITE BLOOD COUNT (AUTO) 15.8 K/uL (4.8-10.8)
[2020-03-31 06:27] LABS: ALBUMIN 1.5 g/dL (3.4-5.0); ANION GAP 10.9 (8-16); CARBON DIOXIDE 28.5 mmol/L (21-32); CREATININE 2.1 mg/dL (0.6-1.3); MAGNESIUM 1.5 mg/dL (1.8-2.4); PHOSPHORUS 2.3 mg/dL (2.5-4.9); POTASSIUM 5.4 mmol/L (3.5-5.1); TOTAL BILIRUBIN 0.3 mg/dL (0.0-1.0)
[2020-03-31 06:45] LABS: HEMATOCRIT 19.7 % (36-48); HEMOGLOBIN 6.4 g/dL (12.0-16.0)
--- NOTE | 2020-03-31 07:20 | NUR ---
BEDSIDE REPORT RECEIVED FROM ENERGY ANALYST NURSE, PT AWAKE ALERT FOLLOWS COMMANDS, RESP WITH TRACH TO VENT WITH SETTING OF ACPC FIO2 45%, RR 18, PEEP 8, RESP UNLABORED,RR AT 20, ON ON MAIL PROCESSOR HR 82, RR 20, BP 109/53, O2SAT 94%, SKIN DRY COLOR WNL, SUBCLIAVIAN R UPPER CHEST, R UA PICC LINE, SITES WNL, PEG TUBE IN PLACE, FEEDING NEPRO AT 40ML/HR, FWF 100./6HR, RECTAL TUBE IN PLACE, NO RESTRAINTS NEEDED, PT COOPERATIVE, DOES NOT TO ATTEMPT TO PULL TUBES, POC REVIEWED, ALL SAFETY MEASURES IN PLACE, WILL CONTINUE TO MONITOR.
[2020-03-31] MEDS: LOSARTAN 50 MG TAB PO SCH ×3 (09:00→21:41)
[2020-03-31] MEDS: INSULIN NPH HUMAN ISOPHANE 100 UNIT/ML VIAL SUBQ SCH ×2 (09:00→21:43)
[2020-03-31] MEDS: PANTOPRAZOLE 40 MG INJ VIAL IVP SCH (09:39)
[2020-03-31] MEDS: METOPROLOL 25 MG TAB PO SCH ×2 (09:39→21:41)
[2020-03-31] MEDS: CHOLECALCIFEROL 1,000 IU TAB NG SCH (09:39)
[2020-03-31] MEDS: POLYVINYL ALCOHOL 1.4% OP 15 ML SOL OP SCH ×3 (09:40→17:00)
[2020-03-31] MEDS: NYSTATIN CRE 100 MU/GM 15 GM TUBE TP SCH ×2 (09:40→21:42)
[2020-03-31] MEDS: EPOETIN ALFA 10,000 UNITS/ML VIAL IV SCH (09:40)
--- NOTE | 2020-03-31 11:30 | NUR ---
BLOOD TRANSFUSION 1 UNIT OF PRBC STARTED PER ORDER, DOUBLE VERIFIED WITH RN SCAR, WILL MONIOTR CLOSELY FOR REACTIONS
[2020-03-31] MEDS ORDERED: MAGNESIUM OXIDE 400 MG TAB GT SCH (13:00)
[2020-03-31] MEDS ORDERED: SODIUM PHOS / POTASSIUM PHOS 1 PKT PDR GT SCH (13:00)
--- NOTE | 2020-03-31 14:25 | NUR ---
BLOOD TRANSFUSION COMPLETED, NO S/S OF TRANSFUSION REACTIONS NOTED. SEE TRANSFUSION RECORDS.
--- NOTE | 2020-03-31 19:40 | NUR ---
RECIVED REPORT FROM DAY SHIFT RN, PT RESTING IN BED WATCHING TV, PT HAS JULIO C PICC INFUSING NS 10ML/HR, TRACH TO VENT AC/PC FIO2 45 RR 18 PEEP 8, RECTAL TUBE DRAINING LIQUID BLACK FECES, GTUBE CONNECTED TO NEPRO 40 ML/HR FWF 100ML Q6H, LUNG SOUNDS COARSE, S1 AND S2 HEART SOUNDS HEARD, PULSES PALPABLE BILATERAL, BOWEL SOUNDS ACTIVE, SAFETY PROTOCOLS IN PLACE WITH VITALS WITHIN NORMAL LIMITS WILL CONTINUE TO MONITOR PT.
--- NOTE | 2020-03-31 19:56 | NUR ---
RECEIVED REPORT FROM AM SHIFT. PATIENT SEEN AND ASSESSED. PATIENT TRACH TO VENT WITH PORTEX SIZE 7 AND SECURED WITH TRACH TIE. AUSCULTATION REVEALS BILATERAL RALES BREATH SOUNDS. NOTICED ADEQUATE BILATERAL CHEST RISE AND FALL. PATIENT ON VENT SETTINGS AC/PC 15,R 18, +8, 45% WITH SPO2 OF 98%. VENT PLUGGED IN RED OUTLET, HOB > 30 DEGREES, AMBU BAG AT BEDSIDE, AND ALARMS SET AND AUDIBLE. PATIENT IS IN NO RESPIRATORY DISTRESS AT THIS TIME. MDI TX GIVEN ORDERED VIA INLINE AND PATIENT TOLERATED WELL WITH NO ADVERSE REACTION. SUCTION SMALL ROONEY THICK SECRETIONS FROM TUBE. AIRWAY IS PATIENT. WILL CONTINUE TO MONITOR PATIENT.
[2020-03-31 21:23] LABS: BASOPHILS # (AUTO) 0.1 K/uL (0.00-0.22); BASOPHILS % (AUTO) 0.7 % (0.0-2.0); EOSINOPHILS % (AUTO) 0.3 % (0.0-4.0); HEMATOCRIT 39.1 % (36-48); HEMOGLOBIN 12.5 g/dL (12.0-16.0); LYMPHOCYTES # (AUTO) 0.8 K/uL (2.5-16.5); LYMPHOCYTES % (AUTO) 6.1 % (20.5-51.1); MEAN CORPUSCULAR HEMOGLOBIN 29 pg (27-31); MEAN CORPUSCULAR HGB CONC 32 g/dL (33-37); MEAN CORPUSCULAR VOLUME 91.3 fL (80-94); MONOCYTES # (AUTO) 0.6 K/uL (0.8-1.0); MONOCYTES % (AUTO) 4.2 % (1.7-9.3); NEUTROPHILS # (AUTO) 11.9 K/uL (1.8-7.7); NEUTROPHILS % (AUTO) 88.7 % (42.2-75.2); PLATELET COUNT (AUTO) 141 K/uL (140-450); RED BLOOD CELL COUNT(AUTO) 4.28 MIL/uL (4.20-5.40); RED CELL DISTRIBUTION WIDTH 15.9 % (11.6-13.7); WHITE BLOOD COUNT (AUTO) 13.4 K/uL (4.8-10.8)
--- NOTE | 2020-03-31 21:30 | NUR ---
ALL PT MEEDS GIVEN PT RESTING IN BED WILL CONTINUE TO MONITOR PT
[2020-03-31] MEDS: ATORVASTATIN 20 MG TAB PO SCH (21:41)
[2020-04-01] VITALS (23 sets, daily range): BP systolic 93–134; BP diastolic 51–80
[2020-04-01] MEDS: ACETAMINOPHEN 325 MG TAB PO PRN (00:52)
[2020-04-01] MEDS: BLOOD GLUCOSE MONITORING 1 DEV DEV FS SCH ×6 (00:52→20:30)
[2020-04-01] MEDS: ALBUTEROL HFA MDI 90 MCG/ACTUATION 8 GM INH SCH ×5 (01:38→19:39)
--- NOTE | 2020-04-01 04:15 | NUR ---
PT BED BATH GIVEN, RECTAL TUBE IRRIGATED WITH 10CC WATER, ALL PT MEDS GIVEN AND PT REPOSITIONED IN BED, WILL CONTINUE TO MONITOR PT
[2020-04-01] MEDS: ALUMINUM HYDROXIDE 64 MG/ML BOTTLE PO SCH ×3 (05:19→21:00)
[2020-04-01] MEDS: PIPERACILLIN/TAZOBACTAM 2.25 GM in DEXTROSE 5% 50 ML IV SCH ×3 (05:19→21:17)
[2020-04-01] MEDS: METOCLOPRAMIDE 10 MG/2 ML INJ VIAL IVP SCH ×3 (05:19→21:18)
--- NOTE | 2020-04-01 05:34 | NUR ---
TITRATED FiO2 TO 40% WITH SPO2 OF 95%. PATIENT TOLERATING WELL. WILL CONTINUE TO MONITOR PATIENT.
[2020-04-01 06:18] LABS: HEMATOCRIT 23.5 % (36-48); HEMOGLOBIN 7.7 g/dL (12.0-16.0); MEAN CORPUSCULAR HEMOGLOBIN 30 pg (27-31); MEAN CORPUSCULAR HGB CONC 33 g/dL (33-37); MEAN CORPUSCULAR VOLUME 91.3 fL (80-94); PLATELET COUNT (AUTO) 196 K/uL (140-450); RED BLOOD CELL COUNT(AUTO) 2.58 MIL/uL (4.20-5.40); WHITE BLOOD COUNT (AUTO) 20.8 K/uL (4.8-10.8)
[2020-04-01 07:06] LABS: ANION GAP 14.8 (8-16); CARBON DIOXIDE 25.3 mmol/L (21-32); POTASSIUM 5.1 mmol/L (3.5-5.1)
[2020-04-01 07:07] LABS: ALBUMIN 1.6 g/dL (3.4-5.0); CREATININE 2.9 mg/dL (0.6-1.3); MAGNESIUM 1.7 mg/dL (1.8-2.4); TOTAL BILIRUBIN 0.3 mg/dL (0.0-1.0)
[2020-04-01 07:08] LABS: PHOSPHORUS 4.1 mg/dL (2.5-4.9)
--- NOTE | 2020-04-01 07:12 | NUR ---
PT REMAINS ON DOCUMENTED SETTINGS. TRACH IS SECURED AND INTACT. PT SHOWS NO SIGN OF DISTRESS AT THIS TIME. VENT CHECK DONE. VENT PLUGGED INTO RED OUTLET, ALARMS ON AND FUNCTIONING, AMBU BAG AT BEDSIDE. WILL CONTINUE TO MONITOR.
--- NOTE | 2020-04-01 07:26 | NUR ---
REPORT GIVEN TO EDNA RN, FOR CONTINUED CARE
[2020-04-01 07:41] LABS: EOSINOPHILS % (MANUAL) 1 % (0-4); LYMPHOCYTES % (MANUAL) 10 % (20-46); MONOCYTES % (MANUAL) 5 % (5-12)
--- NOTE | 2020-04-01 07:57 | NUR ---
BEDSIDE REPORT RECEIVED FROM MIRROR MACHINE FEEDER NURSE, PT AWAKE ALERT FOLLOWS COMMANDS, RESP WITH TRACH TO VENT WITH SETTING OF ACPC FIO2 40%, RR 18, PEEP 8, RESP UNLABORED,RR AT 20, ON ON BUSINESS BANKING RELATIONSHIP MANAGER HR 82, RR 20, BP 117/71, O2SAT 94%, SKIN DRY COLOR WNL, SUBCLIAVIAN R UPPER CHEST, R UA PICC LINE, SITES WNL, PEG TUBE IN PLACE, FEEDING NEPRO AT 40ML/HR, FWF 100./6HR, RECTAL TUBE IN PLACE ANNABELLE PAIGE MD AWARE, PT COOPERATIVE, DOES NOT TO ATTEMPT TO PULL TUBES, POC REVIEWED, ALL SAFETY MEASURES IN PLACE, WILL CONTINUE TO MONITOR.
[2020-04-01] MEDS ORDERED: MAG SULF 2000 MG/WATER PREMIX 50 ML IV SCH (09:00)
[2020-04-01] MEDS: NYSTATIN CRE 100 MU/GM 15 GM TUBE TP SCH ×2 (09:00→21:18)
[2020-04-01] MEDS: LOSARTAN 50 MG TAB PO SCH ×2 (09:00→21:30)
[2020-04-01] MEDS: FLUoxetine 20 MG CAP GT SCH (09:00)
[2020-04-01] MEDS: METOPROLOL 25 MG TAB PO SCH ×2 (09:00→21:30)
[2020-04-01] MEDS: INSULIN NPH HUMAN ISOPHANE 100 UNIT/ML VIAL SUBQ SCH ×2 (09:20→21:00)
[2020-04-01] MEDS: MORPHINE SULFATE 2 MG/ML SYR IVP PRN (09:20)
--- NOTE | 2020-04-01 09:20 | NUR ---
PT GRIMACING AND FROWNS, NODS HEAD WHEN ASKED IF IN PAIN, MORPHINE GIVEN PER PRN, AM MEDS GIVEN, BP MEDS HELD FOR HD TODAY, BLOOD SUGAR CHECKED 214, AND INSULIN GIVEN PER ORDER, SPONGE BATH GIVEN, PERICARE DONE, GT SITE CLEANED, HD CATH DRESSING SOILED, CHANGED, ORAL CARE DONE, PT STATES SHE IS HUNGRY AND WANTS TO EAT, EXPLAINED TO HER THAT SHE WAS GETTING NUTRITION VIA GT AND CAN'T EAT BY MOUTH, CALLED PT'S SON AND DAUGHTER IN LAW [employer] VIA VIDEO CALL TO EXPLAIN TO PT IN [place], PT NODS HEAD FOR UNDERSTANDING.
--- NOTE | 2020-04-01 09:25 | NUR ---
PAGED DR NIELSEN PAGED AGAIN FOR DIALYSIS ORDER
--- NOTE | 2020-04-01 09:45 | NUR ---
NO CALL BACK FROM DR NIELSEN, PAGED DR NIELSEN PAGED AGAIN FOR DIALYSIS ORDER
--- NOTE | 2020-04-01 09:58 | NUR ---
NO CALL BACK FROM DR NIELSEN, PAGED DR NIELSEN PAGED AGAIN FOR DIALYSIS ORDER
--- NOTE | 2020-04-01 10:03 | NUR ---
HD ORDER RECEIVED FROM DR DEL REAL VIA PHONE
--- NOTE | 2020-04-01 10:25 | NUR ---
DR HODGES AT BEDSIDE, MADE AWARE OF DARK/BLACK LOOSE STOOL.
[2020-04-01] MEDS: POLYVINYL ALCOHOL 1.4% OP 15 ML SOL OP SCH ×3 (10:38→17:52)
[2020-04-01] MEDS: CHOLECALCIFEROL 1,000 IU TAB NG SCH (10:38)
[2020-04-01] MEDS: PANTOPRAZOLE 40 MG INJ VIAL IVP SCH (10:38)
[2020-04-01] MEDS: INSULIN LISPRO SLIDING SCALE 100 UNITS/ML VIAL SUBQ PRN (10:59)
--- NOTE | 2020-04-01 12:40 | NUR ---
PT RECEIVING DIALYSIS AT THIS TIME. NO SIGN OF DISTRESS AT THIS TIME. SPO2 97% HR 91.
--- NOTE | 2020-04-01 12:45 | NUR ---
HD COMPLETED 2000ML TAKEN OUT PER DIALYSIS NURSE MOONE.
--- NOTE | 2020-04-01 14:05 | NUR ---
REPOSITIONED FOR COMFORT, PT SMILING GIVES THUMBS UP.
[2020-04-01] MEDS ORDERED: VANCOMYCIN 500 MG in DEXTROSE 5% 100 ML IV SCH (15:00)
--- NOTE | 2020-04-01 16:50 | NUR ---
BEDSIDE GLUCOSE DONE, 133, NO INSULIN NEEDED PER SLIDING SCALE, GOWN CHANGED, LINEN CHANGED, WOUND CARE DONE, ORAL CARE DONE, VANCO INFUSING, PICC SITE WNL.
--- NOTE | 2020-04-01 17:30 | NUR ---
PT REMAINS ON DOCUMENTED SETTINGS. VENT CHECK DONE. TRACH SECURED AND INTACT. NO DISTRESS NOTED AT THIS TIME. VENT PLUGGED INTO RED OUTLET, ALARMS ON AND FUNCTIONING, AMBU BAG AT BEDSIDE.
--- NOTE | 2020-04-01 18:51 | NUR ---
PT'S FAMILY CAM CALLED AND ASKED TO VIDEO CALL WITH PT, PT'S PHONE SET UP IN FRONT OF PT FOR VIDEO CALL, PT COVERS HER FACE WITH SHEET DURING THE CALL, APPEARS SHE DOES NOT WANT TO BE SEEN.
--- NOTE | 2020-04-01 19:10 | NUR ---
RECEIVED REPORT FROM DAY SHIFT RN, PT TRACH TO VENT AC/PC FIO2 40% RR 18 PEEP 8, JULIO C PICC INFUSING NS 10ML/HR, RIGHT SUBCLAVIAN HD PORT, GTUBE INFUSING NEPRO 40 ML/HR FWF [id number], RESIDUALS 15 ML, RECTAL TUBE DRAINING BLACK LIQUID FECES, LUNG SOUNDS COARSE, S1 AND S2 HEART SOUNDS HEARD, BOWEL SOUNDS ACTIVE, PULSES PALPABLE UPPER AND LOWER EXTREMITIES, PT DENIES PAIN, REPOSITIONED PT IN BED, SAFETY PROTOCOLS IN PLACE WILL CONTINUE TO MONITOR PT
--- NOTE | 2020-04-01 19:35 | NUR ---
RECEIVED REPORT FROM AM SHIFT. PATIENT SEEN AND ASSESSED. PATIENT TRACH TO VENT WITH PORTEX SIZE 7 AND SECURED WITH TRACH TIE. AUSCULTATION REVEALS BILATERAL RALES BREATH SOUNDS. NOTICED ADEQUATE BILATERAL CHEST RISE AND FALL. PATIENT ON VENT SETTINGS AC/PC 15,R 18, +8, 40% WITH SPO2 OF 97%. VENT PLUGGED IN RED OUTLET, HOB > 30 DEGREES, AMBU BAG AT BEDSIDE, AND ALARMS SET AND AUDIBLE. PATIENT IS IN NO RESPIRATORY DISTRESS AT THIS TIME. MDI TX GIVEN ORDERED VIA INLINE AND PATIENT TOLERATED WELL WITH NO ADVERSE REACTION. SUCTION SMALL YELLOW THICK SECRETIONS FROM TUBE. AIRWAY IS PATIENT. WILL CONTINUE TO MONITOR PATIENT.
[2020-04-01] MEDS: ATORVASTATIN 20 MG TAB PO SCH (21:18)
--- NOTE | 2020-04-01 21:30 | NUR ---
PT MEDS GIVEN BLOOD SUGAR 87 DR. RUPERT HEWITT
[2020-04-02] VITALS (21 sets, daily range): BP systolic 83–137; BP diastolic 24–66
[2020-04-02] MEDS: BLOOD GLUCOSE MONITORING 1 DEV DEV FS SCH ×6 (00:09→20:00)
--- NOTE | 2020-04-02 00:13 | NUR ---
PT BLOOD SUGAR 97 NO COVERAGE NEEDED, PT IS RESTING IN BED WITH EYES CLOSED NO SIGNS OF DISTRESS NOTED WILL CONTINUE TO MONITOR PT
[2020-04-02] MEDS: ALBUTEROL HFA MDI 90 MCG/ACTUATION 8 GM INH SCH ×4 (01:44→19:00)
--- NOTE | 2020-04-02 01:57 | NUR ---
MDI TX GIVEN ORDERED VIA INLINE AND PATIENT TOLERATED WELL WITH NO ADVERSE REACTION. PATIENT IN NO RESPIRATORY DISTRESS AT THIS TIME. WILL CONTINUE TO MONITOR PATIENT.
--- NOTE | 2020-04-02 03:30 | NUR ---
PT HEART RATE DROPPED TO 47 BEFORE RETUNING BACK TO 60, SBP HAS BEEN LOW 90S OCCASIONALLY GOING BELOW 90 RETURNS TO ABOVE 90 [address] RECY[address]ING BP CUFF. DR[address] VASQUEZ AWARE
[2020-04-02] MEDS: METOCLOPRAMIDE 10 MG/2 ML INJ VIAL IVP SCH ×3 (04:32→21:00)
[2020-04-02] MEDS: ALUMINUM HYDROXIDE 64 MG/ML BOTTLE PO SCH ×3 (04:32→21:00)
[2020-04-02] MEDS: PIPERACILLIN/TAZOBACTAM 2.25 GM in DEXTROSE 5% 50 ML IV SCH ×3 (04:32→21:00)
[2020-04-02] MEDS: INSULIN LISPRO SLIDING SCALE 100 UNITS/ML VIAL SUBQ PRN ×2 (04:36→10:43)
--- NOTE | 2020-04-02 05:00 | NUR ---
PT BED BATH GIVEN, REPOSTIONED PT IN BED AND ALL MEDS ADMINISTERED, NO SIGNS OF DISTRESS NOTED WILL CONTINUE TO MONITOR PT
[2020-04-02 06:05] LABS: HEMATOCRIT 25.1 % (36-48); HEMOGLOBIN 8.1 g/dL (12.0-16.0); MEAN CORPUSCULAR HEMOGLOBIN 30 pg (27-31); MEAN CORPUSCULAR HGB CONC 32 g/dL (33-37); MEAN CORPUSCULAR VOLUME 92.6 fL (80-94); PLATELET COUNT (AUTO) 195 K/uL (140-450); RED BLOOD CELL COUNT(AUTO) 2.71 MIL/uL (4.20-5.40); RED CELL DISTRIBUTION WIDTH 16.2 % (11.6-13.7); WHITE BLOOD COUNT (AUTO) 22.2 K/uL (4.8-10.8)
[2020-04-02 07:01] LABS: LYMPHOCYTES % (MANUAL) 5 % (20-46); MONOCYTES % (MANUAL) 5 % (5-12)
--- NOTE | 2020-04-02 07:29 | NUR ---
ENDORSED PT TO DAY SHIFT RN NO SIGNS OF DISTRESS OBSERVED AT THIS TIME
--- NOTE | 2020-04-02 08:00 | NUR ---
PT REMAINS ON DOCUMENTED SETTINGS. TRAC IS SECURED AND INTACT. NO DISTRESS NOTED AT THIS TIME. VENT CHECK DONE, VENT PLUGGED INTO RED OUTLET, ALARMS ARE ON AND FUNCTIONING, AMBU BAG AT BEDSIDE. WILL CONTINUE TO MONITOR.
[2020-04-02] MEDS: METOPROLOL 25 MG TAB PO SCH ×2 (09:00→21:00)
[2020-04-02] MEDS: LOSARTAN 50 MG TAB PO SCH ×2 (09:00→21:00)
[2020-04-02] MEDS: POLYVINYL ALCOHOL 1.4% OP 15 ML SOL OP SCH ×3 (09:00→16:35)
[2020-04-02] MEDS: NYSTATIN CRE 100 MU/GM 15 GM TUBE TP SCH ×2 (09:00→21:00)
--- NOTE | 2020-04-02 09:00 | NUR ---
RECIEVED PT WHO WAS FOUND POSITIVE FOR COVID. SHE HAS HX OF CHF- HTN AND IS NOW ON HD. SHE IS ON THE VENTILATOR WITH AC PC 40% FIO2 - RATE 18 AND PEEP OF 8. SHE IS TRACHED AND PEGGED SHE HAS BEEN HER FOR WEEKS. SHE IS STABLE ON THE VENTILATOR.
[2020-04-02 09:03] LABS: ALBUMIN 1.6 g/dL (3.4-5.0); CARBON DIOXIDE 29.4 mmol/L (21-32); CREATININE 2.3 mg/dL (0.6-1.3); MAGNESIUM 2.3 mg/dL (1.8-2.4); PHOSPHORUS 5.1 mg/dL (2.5-4.9); POTASSIUM 3.4 mmol/L (3.5-5.1); TOTAL BILIRUBIN 0.3 mg/dL (0.0-1.0)
[2020-04-02] MEDS: INSULIN NPH HUMAN ISOPHANE 100 UNIT/ML VIAL SUBQ SCH ×2 (10:30→21:00)
[2020-04-02] MEDS: EPOETIN ALFA 10,000 UNITS/ML VIAL IV SCH (10:45)
[2020-04-02] MEDS: FLUoxetine 20 MG CAP GT SCH (10:47)
[2020-04-02] MEDS: PANTOPRAZOLE 40 MG INJ VIAL IVP SCH (10:47)
[2020-04-02] MEDS: CHOLECALCIFEROL 1,000 IU TAB NG SCH (10:47)
--- NOTE | 2020-04-02 14:50 | NUR ---
TRANSFERRED PT BACK FROM CT. TRACH IS SECURED AND INTACT. VENT PLUGGED BACK INTO RED OUTLET, ALARMS ON AND FUNCTIONING, AMBU BAG AT BEDSIDE. WILL CONTINUE TO MONITOR.
--- NOTE | 2020-04-02 15:00 | NUR ---
I DID TAKE THE PT FOR CT. SEE ORDERS FOR SPECIFICS. I TOOK THE PORTABLE EKG FOR MONITORING AND THE METAL SASH SETTER CAME WITH THE VENTILATOR UNDER TOW WELL. THE TRANSFER AND PROCEDURE WERE UNREMARKABLE. STABLE THROUGHOUT.
--- NOTE | 2020-04-02 16:50 | NUR ---
PT REMAINS ON DOCUMENTED SETTINGS. TRACH IS SECURED AND INTACT. NO DISTRESS NOTED AT THIS TIME. VENT CHECK DONE, VENT PLUGGED INTO RED OUTLET, ALARMS ARE ON AND FUNCTIONING, AMBU BAG AT BEDSIDE.
--- NOTE | 2020-04-02 19:15 | NUR ---
BEDSIDE REPORT RECEIVED FROM AM SHIFT. SR ON MONITOR. TRACH TO VENT. ON AC/PC MODE. FIO2 40%, RR 18, PEEP 8. GTUBE TO FEEDING. 5ML RESIDUALS. JULIO C PICC LINE AND R SUBCLAVIAN HD CATH INTACT, PATENT. RECTAL BAG IN PLACE. SKIN NON INTACT, SEE WOUND ASSESSMENT. HOB 30 DEGREES. BED LOCKED IN LOWEST POSITION. WILL CONTINUE TO MONITOR.
--- NOTE | 2020-04-02 20:29 | NUR ---
RECEIVED PT ON DOCUMENTED SETTINGS. VENT PLUGGED INTO RED OUTLET. BMV AT BEDSIDE. TRACH SECURED AND INTACT. ALARMS SET. PT IS IN NO DISTRESS. WILL CONT TO MONITOR.
--- NOTE | 2020-04-02 20:58 | NUR ---
PT PULLING ON HD CATHETER. PT PLACED ON BILAT SOFT WRIST RESTRAINTS. DR FRAIRE AWARE. WILL CONTINUE TO MONITOR.
[2020-04-02] MEDS: ATORVASTATIN 20 MG TAB PO SCH (21:00)
--- NOTE | 2020-04-02 21:00 | NUR ---
SBP AT 90. HELD LOSARTAN AND METOPROLOL MEDICATIONS. BLOOD SUGAR 129, HELD HUMULIN N. DR VASQUEZ AWARE. WILL CONTINUE TO MONITOR.
--- NOTE | 2020-04-02 23:20 | NUR ---
PT AWAKE. RESPIRATIONS EVEN AND UNLABORED. CHEST RISE IS SYMMETRICAL. HOB 30 DEGREES. BED LOCKED IN LOWEST POSITION. WILL CONTINUE TO MONITOR.
[2020-04-03] VITALS (17 sets, daily range): BP systolic 92–131; BP diastolic 41–72
[2020-04-03] MEDS: ALBUTEROL HFA MDI 90 MCG/ACTUATION 8 GM INH SCH ×4 (00:32→19:58)
--- NOTE | 2020-04-03 01:35 | NUR ---
FEEDING STARTED. 0 ML RESIDUALS. BLOOD SUGAR 177. WILL CONTINUE TO MONITOR.
--- NOTE | 2020-04-03 03:30 | NUR ---
PT HAS EYES CLOSED, RESPIRATIONS EVEN AND UNLABORED. BED LOCKED IN LOWEST POSITION. SAFETY PRECAUTIONS IN PLACE. WILL CONTINUE TO MONITOR.
[2020-04-03] MEDS: BLOOD GLUCOSE MONITORING 1 DEV DEV FS SCH ×6 (04:00→20:00)
--- NOTE | 2020-04-03 04:10 | NUR ---
COVID SWAB DONE. LABS DRAWN. PT CLEANED AND REPOSITIONED. SAFETY PRECAUTIONS IN PLACE. WILL CONTINUE TO MONITOR.
--- NOTE | 2020-04-03 04:55 | NUR ---
pt remains on documented settings. patent airway. trach secured and intact. pt is in no distress. will cont to monitor
[2020-04-03] MEDS: PIPERACILLIN/TAZOBACTAM 2.25 GM in DEXTROSE 5% 50 ML IV SCH ×3 (05:00→21:00)
[2020-04-03] MEDS: ALUMINUM HYDROXIDE 64 MG/ML BOTTLE PO SCH ×3 (05:00→21:00)
[2020-04-03] MEDS: METOCLOPRAMIDE 10 MG/2 ML INJ VIAL IVP SCH ×3 (05:00→21:00)
--- NOTE | 2020-04-03 06:20 | NUR ---
PT OPENS EYES SPONTANEOUSLY. HOB 30 DEGREES. BED LOCKED IN LOWEST POSITION. WILL CONTINUE TO MONITOR.
[2020-04-03 06:23] LABS: BASOPHILS # (AUTO) 0.1 K/uL (0.00-0.22); BASOPHILS % (AUTO) 0.4 % (0.0-2.0); EOSINOPHILS % (AUTO) 0.2 % (0.0-4.0); HEMATOCRIT 35.1 % (36-48); HEMOGLOBIN 11.2 g/dL (12.0-16.0); MEAN CORPUSCULAR HEMOGLOBIN 30 pg (27-31); MEAN CORPUSCULAR HGB CONC 32 g/dL (33-37); MEAN CORPUSCULAR VOLUME 93.5 fL (80-94); MONOCYTES # (AUTO) 0.7 K/uL (0.8-1.0); MONOCYTES % (AUTO) 5.1 % (1.7-9.3); NEUTROPHILS # (AUTO) 12.3 K/uL (1.8-7.7); NEUTROPHILS % (AUTO) 87.3 % (42.2-75.2); PLATELET COUNT (AUTO) 148 K/uL (140-450); RED BLOOD CELL COUNT(AUTO) 3.76 MIL/uL (4.20-5.40); RED CELL DISTRIBUTION WIDTH 16.2 % (11.6-13.7); WHITE BLOOD COUNT (AUTO) 14.1 K/uL (4.8-10.8)
[2020-04-03 06:58] LABS: ANION GAP 12.7 (8-16); CARBON DIOXIDE 29.3 mmol/L (21-32); CREATININE 2.9 mg/dL (0.6-1.3)
--- NOTE | 2020-04-03 07:11 | NUR ---
BEDSIDE REPORT GIVEN TO AM SHIFT RN FOR CONTINUITY OF CARE.
--- NOTE | 2020-04-03 07:45 | NUR ---
RECIVED PT ON VENT WITH SETTINGS CHARTED BREATH SOUNDS PRESENT BILAT COARSE SXN PT WITH MIN TO MOD AMT SECS TRACH SITE SECURE VENT PLUGGED INTO RED OUTLET AMBU BAG AT BEDSIDE WILL CONTINUE TO MONITOR PT ON VENT
[2020-04-03 07:55] LABS: MAGNESIUM 2.6 mg/dL (1.8-2.4); PHOSPHORUS 6.4 mg/dL (2.5-4.9)
[2020-04-03] MEDS: PANTOPRAZOLE 40 MG INJ VIAL IVP SCH (08:40)
[2020-04-03] MEDS: CHOLECALCIFEROL 1,000 IU TAB NG SCH (08:40)
[2020-04-03] MEDS: POLYVINYL ALCOHOL 1.4% OP 15 ML SOL OP SCH ×3 (08:40→17:10)
[2020-04-03] MEDS: FLUoxetine 20 MG CAP GT SCH (08:40)
[2020-04-03] MEDS: INSULIN NPH HUMAN ISOPHANE 100 UNIT/ML VIAL SUBQ SCH ×2 (08:41→21:00)
[2020-04-03] MEDS: INSULIN LISPRO SLIDING SCALE 100 UNITS/ML VIAL SUBQ PRN ×3 (08:42→23:54)
--- NOTE | 2020-04-03 08:45 | NUR ---
WOUND CARE RE-EVALUATION NOTE: INTEGUMENTARY: -TRACH SITE GLORY-STOMA SKIN MOIST SUTURES IN PLACE -LUQ G TUBE IN PLACE GLORY-STOMA SKIN DRY AND CLEAN -PREVIOUS LIPS AND ORAL MUCOSAL ULCERATIONS RESOLVED -SACRALCOCCYX BLANCHABLE REDNESS -LEFT BUTTOCK PALE PINK/LIGHT BROWN SCAB 1X1CM, GLORY-WOUND IRREGULAR SHAPE WITH WOUND BED RED AND MOIST SURROUNDING REDNESS EXTENDED TO GLORY-ANAL -MOISTURE ASSOCIATED DERMATITIS GROINS, GLORY-ANAL AND INNER BUTTOCKS -RIGHT CHEEKS DRY DARK BROWN SCAB 1.2X2.3 CM, NO S/S OF INFECTION, GLORY WOUND SKIN INTACT RECOMMENDATIONS: -CLEANSE RIGHT CHEEK WITH NS, PAINT WITH BETADINE SOLUTION BID AND LEAVE IT OPEN TO AIR -SACRALCOCCYX AND LEFT BUTTOCK CLEANSE WITH SOAP AND WATER PAT DRY, APPLY OPTIC FOAM QD AND PRN IF SOILING -CLEANSE GROINS, GLORY-ANAL AND INNER BUTTOCKS WITH SOAP AND WATER, PAT DRY APPLY THIN LAYER Z GUARD BID AND PRN IF SOILING -ASSESS AND MONITOR RECTAL TUBE AND DRESSING/ SKIN CONDITION DURING POSITION CHANGE -OFFLOAD BILATERAL HEELS BY PLACING PILLOWS UNDER CALVES AT ALL TIMES, UNLESS OTHERWISE CONTRAINDICATED -PRESSURE REDISTRIBUTION BY PLACING PILLOWS AND OFFLOADING SACRALCOCCYX -KEEP SKIN CLEAN AND DRY AT ALL TIMES.
[2020-04-03] MEDS: METOPROLOL 25 MG TAB PO SCH ×2 (09:00→21:00)
[2020-04-03] MEDS: LOSARTAN 25 MG TAB PO SCH ×2 (09:00→21:00)
--- NOTE | 2020-04-03 09:00 | NUR ---
RECIEVED PT WITH HX OF CHF/AF. SHE WAS ALTERED AND BROUGHT TO THE ER. SHE WAS FOUND TO BE HYPOTENSIVE WITH SEPTIC SHOCK. (OFF PRESSORS). SHE IS A/O THIS AM. SHE DID HAVE A THORACENTESIS YESTERDAY WITH 1000CC OUT. SHE IS ON 2L NC. VS/SO2 WDL. SHE DID TAKE HER ORAL MEDS THIS AM. PLAN TO TRANSFER TO [facility]. Addendum: 04/03/20 at 1232 by Agency KRISTAL RN WRONG PT
--- NOTE | 2020-04-03 09:00 | NUR ---
RECIEVED PT WHO BACK IN JANUARY WAS ADMITTED WITH SOB. SHE WAS FOUND TO COVID POSITIVE. SHE WAS INTUBATED FOR RESPIRATORY FAILURE AND NOW STILL VENTILATOR DEPENDENT WITH A TRACH PLACMENT. SEE RESPIRATORY NOTES FOR VENT SETTINGS. THE PT ALSO NOW HAS RENAL FAILURE AND WILL HAVE HD TODAY. THE WOUND CARE NURSE IS HERE AND TAKING PICTURES WELL GIVING TX. VS/SO2 ARE STABLE. THE PT CAN FOLLOW SIMPLE COMMANDS. SHE IS NOT IN DISTRESS. SHE IS IN SR WITH NO PRESSIOR SUPPORT.
[2020-04-03] MEDS ORDERED: POTASSIUM CHLORIDE 40 MEQ, LIDOCAINE MPF 1% 25 MG in NACL 0.9% 250 ML IV SCH (10:00)
[2020-04-03] MEDS: NYSTATIN CRE 100 MU/GM 15 GM TUBE TP SCH ×2 (15:41→21:00)
[2020-04-03] MEDS: ONDANSETRON 4 MG/2 ML VIAL IVP PRN (17:06)
--- NOTE | 2020-04-03 17:07 | NUR ---
CONTINUED TO MONITOR PT ON VENT WITH SETTINGS CHARTED BREATH SOUNDE PRESENT BILAT COARSE SXN PT WITH MIN AMT THICK OFFWHITE SECS TRACH SITE SECURE VENT PLUGGED INTO RED OUTLET AMBU BAG AT BEDSIDE
[2020-04-03] MEDS: MORPHINE SULFATE 2 MG/ML SYR IVP PRN (17:15)
--- NOTE | 2020-04-03 17:30 | NUR ---
RECEIVED BEDSIDE REPORT FROM KRISTAL ANDERSON FOR CONTINUOUS OF CARE, PT STABLE, NO DISTRESS NOTED. WILL CONTINUE TO MONITOR.
--- NOTE | 2020-04-03 18:15 | NUR ---
PT FLACC 8, POST PT, WHEN ASKED PT FROWNED AND WHEN ASKED IF SHE IS IN PAIN SHE NODDED, MEDICATION PER DR ORDER ADMINISTERED, PT TOLERATE WELL, WILL CONTINUE TO MONITOR.
--- NOTE | 2020-04-03 18:23 | NUR ---
P.T. NOTES P.T. EVAL COMPLETED; WILL BENEFIT W/ P.T. POST ACUTE STAY.
--- NOTE | 2020-04-03 19:21 | NUR ---
ENDORSED PT TO EVENT AV OPERATOR NURSE, PT RESTING, NO DISTRESS NOTED.
--- NOTE | 2020-04-03 19:21 | NUR ---
BEDSIDE REPORT RECEIVED FROM AM SHIFT RN. PT SPONTANEOUSLY OPENS EYES. FOLLOWS COMMANDS IN [place]. PT TRACH TO VENT. ON AC/PC MODE. FIO2 40% PEEP 8, RATE 18. SR ON MONITOR. IV SITE. JULIO C PICC AND R SUBCLAVIAN. INTACT AND PATENT. GTUBE TO FEEDING. 5 ML RESIDUALS. SKIN NON INTACT. SEE WOUND ASSESSMENT. RECTAL BAG IN PLACE. PT ON SOFT BILAT WRIST RESTRAINTS. HOB 30 DEGREES. BED LOCKED IN LOWEST POSITION. WILL CONTINUE TO MONITOR.
[2020-04-03] MEDS: ATORVASTATIN 20 MG TAB PO SCH (21:00)
--- NOTE | 2020-04-03 21:45 | NUR ---
BLOOD SUGAR 133. NO COVERAGE GIVEN. HELD HUMULIN N. HELD [place] AND METOPROL PT IS SB, [address] VASQUEZ AWARE. WILL CONTINUE TO MONITOR.
--- NOTE | 2020-04-03 23:30 | NUR ---
PT SUCTIONED, ORAL CARE PROVIDED. O2 SATURATION 92%. FLUID LEAKING FROM TRACH AREA. RT AWARE. WILL CONTINUE TO MONITOR.
[2020-04-04] VITALS (53 sets, daily range): BP systolic 36–154; BP diastolic 29–75
--- NOTE | 2020-04-04 01:30 | NUR ---
PT HAS EYES CLOSED, RESPIRATIONS EVEN AND UNLABORED. CHEST RISE IS SYMMETRICAL HOB 30 DEGREES. BED LOCKED IN LOWEST POSITION. WILL CONTINUE TO MONITOR.
[2020-04-04] MEDS: ALBUTEROL HFA MDI 90 MCG/ACTUATION 8 GM INH SCH ×4 (01:39→19:20)
--- NOTE | 2020-04-04 03:45 | NUR ---
PT CLEANED, REPOSITIONED. FEEDING STARTED. NO RESIDUALS NOTED. WILL CONTINUE TO MONITOR.
[2020-04-04] MEDS: INSULIN LISPRO SLIDING SCALE 100 UNITS/ML VIAL SUBQ PRN (04:00)
[2020-04-04] MEDS: ONDANSETRON 4 MG/2 ML VIAL IVP PRN (04:00)
[2020-04-04] MEDS: BLOOD GLUCOSE MONITORING 1 DEV DEV FS SCH ×6 (04:00→20:00)
--- NOTE | 2020-04-04 04:30 | NUR ---
PT HAD 1 VOMITING EPISODE, YELLOW FLUID FROM THE MOUTH AND LEAKING FROM THE TRACH AREA. ZOFRAN GIVEN PRN. WILL CONTINUE TO MONITOR. Addendum: 04/04/20 at 0551 by Dion Gresham RN HELD FEEDING
--- NOTE | 2020-04-04 04:56 | NUR ---
PATIENT VOMITTED. SXNED PT MOUTH YELLOW FLUID. CHANGED TRACH TIE AND GAUZE. PATIENTS SATS DROPPED TO 77%. PUT PT ON FIO2 OF 100%. WILL WEAN FIO2 HAS SATS IMPROVE
[2020-04-04] MEDS: PIPERACILLIN/TAZOBACTAM 2.25 GM in DEXTROSE 5% 50 ML IV SCH ×2 (05:00→13:29)
[2020-04-04] MEDS: ALUMINUM HYDROXIDE 64 MG/ML BOTTLE PO SCH ×3 (05:00→20:12)
[2020-04-04] MEDS: METOCLOPRAMIDE 10 MG/2 ML INJ VIAL IVP SCH ×3 (05:00→20:12)
--- NOTE | 2020-04-04 06:15 | NUR ---
TRACH TO VENT. FIO2 100%. RESPIRATIONS EVEN AND UNLABORED. CHEST RISE IS SYMMETRICAL. HOB 30 DEGREES. BED LOCKED IN LOWEST POSITION. WILL CONTINUE TO MONITOR.
[2020-04-04 07:04] LABS: ANION GAP 10.9 (8-16); CARBON DIOXIDE 28.9 mmol/L (21-32); POTASSIUM 3.8 mmol/L (3.5-5.1)
[2020-04-04 07:05] LABS: MAGNESIUM 1.9 mg/dL (1.8-2.4); PHOSPHORUS 4.3 mg/dL (2.5-4.9)
[2020-04-04 07:09] LABS: HEMATOCRIT 25.3 % (36-48); HEMOGLOBIN 8.1 g/dL (12.0-16.0); MEAN CORPUSCULAR HEMOGLOBIN 31 pg (27-31); MEAN CORPUSCULAR HGB CONC 32 g/dL (33-37); MEAN CORPUSCULAR VOLUME 95.8 fL (80-94); PLATELET COUNT (AUTO) 185 K/uL (140-450); RED BLOOD CELL COUNT(AUTO) 2.64 MIL/uL (4.20-5.40); RED CELL DISTRIBUTION WIDTH 17.4 % (11.6-13.7)
--- NOTE | 2020-04-04 07:22 | NUR ---
RECIVED PT ON VENT WITH SETTINGS CHARTED DECREASED FIO2 TO .50 RN AWARE BREATH SOUNDS PRESENT BILAT SXN PT WITH MIN AMT OFF WHITE SECS TRACH SITE SECURE VENT PLUGGED INTO RED OUTLET AMBU BAG AT BEDSIDE WILL CONTINUE TO MONITOR PT ON VENT
--- NOTE | 2020-04-04 07:30 | NUR ---
RECEIVED PATIENT ON BED.INITIAL ASSESSMENT DONE TO PATIENT.TRACHE TO VENT WITH fIO2 50 PERCENT,PINSP=15,RATE=18,PEEP=8,GTUBE CLAMPED AND DR RAMOS SAID HOLD FEEDING.PT ANURIC.RIGHT UPPER ARM PICC LINE DRESSING DRY AND INTACT.NO SIGNS OF INFECTION.NSR ON THE MONITOR.PT IS LETHARGIC.WILL MONITOR.
[2020-04-04] MEDS: PANTOPRAZOLE 40 MG INJ VIAL IVP SCH (08:09)
[2020-04-04] MEDS: FLUoxetine 20 MG CAP GT SCH (08:09)
[2020-04-04] MEDS: EPOETIN ALFA 10,000 UNITS/ML VIAL IV SCH (08:11)
[2020-04-04] MEDS: CHOLECALCIFEROL 1,000 IU TAB NG SCH (08:11)
[2020-04-04] MEDS: LOSARTAN 25 MG TAB PO SCH ×2 (08:12→20:13)
[2020-04-04] MEDS: METOPROLOL 25 MG TAB PO SCH ×2 (08:13→20:13)
[2020-04-04] MEDS: NYSTATIN CRE 100 MU/GM 15 GM TUBE TP SCH (08:34)
[2020-04-04] MEDS: POLYVINYL ALCOHOL 1.4% OP 15 ML SOL OP SCH ×3 (08:41→17:10)
[2020-04-04] MEDS: INSULIN NPH HUMAN ISOPHANE 100 UNIT/ML VIAL SUBQ SCH ×2 (08:45→20:13)
[2020-04-04 09:04] LABS: LYMPHOCYTES % (MANUAL) 5 % (20-46); MONOCYTES % (MANUAL) 4 % (5-12)
[2020-04-04] MEDS ORDERED: VANCOMYCIN 1,000 MG in DEXTROSE 5% 250 ML IV SCH (11:30)
--- NOTE | 2020-04-04 13:25 | NUR ---
PT UNRESPONSIVE.CHECKED HF=530.DR RAMOS MADE AWARE.HR=54,POX=90.LR=581/63.RR=30-40S. Addendum: 04/04/20 at 1354 by Denise Mike RN RN 1325-BILATERAL SOFT WRIST RESTRAINTS RELEASED.DR RAMOS AWARE.ALSO DR Ramos NOTIFIED PT HAD FROTHY SPUTUM.SUCTIONED ORALLY.
--- NOTE | 2020-04-04 13:45 | NUR ---
PT WITH ALOC JAMES DRAWN DR LOMBARDO CALLED VENT CHANGES MADE CHARTED PER DR FAN RN AWARE WILL CONTINUE TO MONITOR PT RN AWARE
--- NOTE | 2020-04-04 13:59 | NUR ---
DR HODGES PAGED AND CALLED BACK, ABD RESULTS REPORTED BY RT NAVEED, AND NOTIFIED OF BRADYCARDIA LOW 38 BPM WITH BP 104/63, LOW DOSE DOPAMINE TO START AT 5MCG/KG/MIN. DR RAMOS AT BEDSIDE, DR RAMOS TO CALL FAMILY TO UPDATE THEM ON PT'S CONDITION..
[2020-04-04] MEDS ORDERED: DOPamine 400 MG/D5W PREMIX 250 ML IV ONE (14:06)
[2020-04-04] MEDS: DOPamine 400 MG/D5W PREMIX 250 ML IV PRN (14:10)
--- NOTE | 2020-04-04 15:00 | NUR ---
DR RAMOS UPDATED ABOUT PTS CONDITION AND PER MD CALLED THE FAMILY AND UPDATED THE FAMILY ABOUT PTS CONDITION.
--- NOTE | 2020-04-04 16:05 | NUR ---
SARAHY (DAUGHTER) HERE TO SEE PT THROUGH THE WINDOW REQUESTED BY DR RAMOS, OK'D BY TOWEL WEAVER, PT CONDITION DISCUSSED VIA [employer]CTION, ALL QUESTIONS ASKED AND ANSWERED, ENCOURAGED HER TO SPEAK WITH FAMILY TO DISCUSS HER MOTHER CONDITION PER DR RAMOS. DR RAMOS WITH SARAHY IN HALLWAY TO SPEAK WITH HER DIRECTLY.
--- NOTE | 2020-04-04 16:57 | NUR ---
continued to monitor pt on vent with settings as charted breath sounds present bilat coarse sxn pt with min amt off white secs trach site secure ambu bag at bedside vent plugged into red outlet
--- NOTE | 2020-04-04 17:00 | NUR ---
FFUP WITH CONTACT LENS CUTTER TO CALL FOR PICC LINE RN BECAUSE UP TO NOW NO CALL YET.
--- NOTE | 2020-04-04 17:10 | NUR ---
CASEY FROM pICC LINE CALLED AND STATED THAT PT NEEDS TO BE WITHOUT CENTRAL LINE FOR 24 HOURS PRIOR TO STARTING A NEW PICC LINE.DR RAMOS MADE AWARE AND PER MD WAIT AND DONT REMOVE THE OLD ONE.JUST LEAVE IT.
[2020-04-04] MEDS: DEXTROSE 50% 50 ML SYR IVP PRN (17:28)
--- NOTE | 2020-04-04 17:31 | NUR ---
REPEAT BS WAS 152 AFTER D50.PRIOR BS WAS 25.REPEAT WAS 19.DR RAMOS AWARE.
--- NOTE | 2020-04-04 19:00 | NUR ---
DR QUIROZ UPDATED ABOUT PTS CONDITION ESPECIALLY STARTED ON DOPAMINE FOR LOW HR.PER MD IF STABLE WILL ORDER HD TOMORROW.
[2020-04-04] MEDS: DEXT 5% / NACL 0.9% 500 ML IV SCH (19:07)
--- NOTE | 2020-04-04 19:15 | NUR ---
BEDSIDE REPORT RECEIVED FROM AM SHIFT RN. PT IS LETHARGIC. SINUS RHYTHM ON MONITOR. TRACH TO VENT. AC/PC MODE FIO2 100% RATE 15, PEEP 10. R SUBCLAVIAN HD CATH, INTACT, PATENT. JULIO C PICC, INTACT, PATENT, GOOD BLOOD RETURN INFUSING DOPAMINE 10 MCG/KG/MIN AND D5 NS 35ML/HR. DRY WEIGHT 57KG. GTUBE IN PLACE, CLAMPED. SKIN NON INTACT. SEE WOUND ASSESSMENT. RECTAL BAG IN PLACE. HOB 30 DEGREES. BED LOCKED IN LOWEST POSITION. SAFETY PRECAUTIONS IN PLACE. WILL CONTINUE TO MONITOR.
--- NOTE | 2020-04-04 19:15 | NUR ---
REPORT GIVEN TO JAYASHREE FOR CONTINUITY OF CARE.
--- NOTE | 2020-04-04 19:20 | NUR ---
RECEIVED PT ON DOCUMENTED SETTINGS. VENT PLUGGED INTO RED OUTLET. BMV AT BEDSIDE. ETT SECURED AND INTACT. ALARMS SET. PT IS IN NO DISTRESS. WILL CONT TO MONITOR Addendum: 04/04/20 at 2143 by Pancho Don RT TRACH SECURED AND INTACT
--- NOTE | 2020-04-04 20:00 | NUR ---
DR ADAMS AT BEDSIDE. ORDERS TO HOLD HEPARIN SUBQ. STAT ORDER FOR CT SCAN OF THE HEAD.
[2020-04-04] MEDS: ATORVASTATIN 20 MG TAB PO SCH (20:13)
--- NOTE | 2020-04-04 20:15 | NUR ---
BLOOD SUGAR 85. HELD HUMULIN. DR ADAMS AWARE.
--- NOTE | 2020-04-04 21:11 | NUR ---
PT TRANSFERRED TO AND FROM CT. VENT PLUGGED INTO RED OUTLET. BMV AT BEDSIDE. TRACH SECURED AND INTACT. PT IS IN NO DISTRESS. WILL CONT TO MONITOR
--- NOTE | 2020-04-04 23:00 | NUR ---
PT'S FAMILY MEMBER CAM CALLED, UPDATED ON PT STATUS.
[2020-04-05] VITALS (106 sets, daily range): BP systolic 90–144; BP diastolic 38–92
[2020-04-05] MEDS: DOPamine 400 MG/D5W PREMIX 250 ML IV PRN ×2 (00:58→14:11)
--- NOTE | 2020-04-05 01:00 | NUR ---
HUNG NEW BAG OF DOPAMINE DRIP. 10MCG/KG/MIN, SR ON MONITOR. WILL CONTINUE TO MONITOR.
[2020-04-05] MEDS: ALBUTEROL HFA MDI 90 MCG/ACTUATION 8 GM INH SCH ×4 (01:35→19:51)
--- NOTE | 2020-04-05 03:30 | NUR ---
PT HAS EYES CLOSED, RESPIRATIONS EVEN AND UNLABORED. PT IS LETHARGIC. SAFETY PRECAUTIONS IN PLACE. WILL CONTINUE TO MONITOR.
[2020-04-05] MEDS: BLOOD GLUCOSE MONITORING 1 DEV DEV FS SCH ×7 (04:00→23:32)
[2020-04-05] MEDS: ALUMINUM HYDROXIDE 64 MG/ML BOTTLE PO SCH ×4 (05:00→21:00)
[2020-04-05] MEDS: METOCLOPRAMIDE 10 MG/2 ML INJ VIAL IVP SCH ×3 (05:00→20:25)
--- NOTE | 2020-04-05 05:00 | NUR ---
BLOOD SUGAR 79. ADM SCHEDULED MEDICATIONS. WILL CONTINUE TO MONITOR.
--- NOTE | 2020-04-05 05:38 | NUR ---
PT REMAINS ON DOCUMENTED SETTINGS. TRACH SECURED AND INTACT. PATENT AIRWAY. ALARMS SET. PT IS IN NO DISTRESS. WILL CONT TO MONITOR
[2020-04-05 06:26] LABS: ALBUMIN 1.8 g/dL (3.4-5.0); ANION GAP 16.3 (8-16); CARBON DIOXIDE 24.6 mmol/L (21-32); CREATININE 3.2 mg/dL (0.6-1.3); MAGNESIUM 2.1 mg/dL (1.8-2.4); PHOSPHORUS 8.2 mg/dL (2.5-4.9); POTASSIUM 3.9 mmol/L (3.5-5.1); TOTAL BILIRUBIN 0.5 mg/dL (0.0-1.0)
[2020-04-05 06:28] LABS: HEMATOCRIT 28.3 % (36-48); HEMOGLOBIN 8.8 g/dL (12.0-16.0); MEAN CORPUSCULAR HEMOGLOBIN 30 pg (27-31); MEAN CORPUSCULAR HGB CONC 31 g/dL (33-37); MEAN CORPUSCULAR VOLUME 96.6 fL (80-94); PLATELET COUNT (AUTO) 166 K/uL (140-450); RED BLOOD CELL COUNT(AUTO) 2.92 MIL/uL (4.20-5.40); RED CELL DISTRIBUTION WIDTH 18.3 % (11.6-13.7)
[2020-04-05 06:49] LABS: LYMPHOCYTES % (MANUAL) 5 % (20-46); MONOCYTES % (MANUAL) 4 % (5-12)
[2020-04-05 06:51] LABS: CORRECTED WHITE BLOOD COUNT 31.3 K/uL (4.5-11.0); WHITE BLOOD COUNT (AUTO) 36.6 K/uL (4.8-10.8)
--- NOTE | 2020-04-05 07:05 | NUR ---
REPORT GIVEN TO AM SHIFT RN FOR CONTINUITY OF CARE.
--- NOTE | 2020-04-05 07:25 | NUR ---
BEDSIDE REPORT RECEIVED FROM POWER HOUSE CONTROL ROOM OPERATOR NURSE, RESP WITH TRACH TO VENT WITH SETTING OF ACPC FIO2 100%, RR 22 PEEP 10, RESP UNLABORED,RR AT 22, SKIN WARM DRY COLOR WNL, ON ON TRACK LAYING SUPERVISOR HR 84, RR 22, BP 118/63, O2SAT 94%, SKIN DRY COLOR WNL, SUBCLIAVIAN R UPPER CHEST, R UA PICC LINE, SITES WNL, PEG TUBE IN PLACE, FEEDING ON HOLD, RECTAL TUBE IN PLACE LIQ STOOL, PT MINIMALLY RESPONSIVE, NEURO CONSULT PENDING, POC REVIEWED, ALL SAFETY MEASURES IN PLACE, WILL CONTINUE TO MONITOR.
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
[2020-04-05] MEDS: DEXT 5% / NACL 0.9% 500 ML IV SCH ×2 (08:23→22:45)
--- NOTE | 2020-04-05 08:25 | NUR ---
REVIEWED ABG SAMPLE REPORT WITH DR. HONG RAMOS
[2020-04-05] MEDS: FLUoxetine 20 MG CAP GT SCH (08:51)
[2020-04-05] MEDS: POLYVINYL ALCOHOL 1.4% OP 15 ML SOL OP SCH ×3 (08:51→17:49)
[2020-04-05] MEDS: PANTOPRAZOLE 40 MG INJ VIAL IVP SCH (08:51)
[2020-04-05] MEDS: CHOLECALCIFEROL 1,000 IU TAB NG SCH (08:51)
[2020-04-05] MEDS: INSULIN NPH HUMAN ISOPHANE 100 UNIT/ML VIAL SUBQ SCH ×2 (08:52→20:28)
[2020-04-05] MEDS: METOPROLOL 25 MG TAB PO SCH ×2 (08:52→20:26)
[2020-04-05] MEDS: LOSARTAN 25 MG TAB PO SCH ×2 (08:52→20:26)
[2020-04-05] MEDS: ONDANSETRON 4 MG/2 ML VIAL IVP PRN (09:22)
--- NOTE | 2020-04-05 10:15 | NUR ---
REVIEWED ABG SAMPLE REPORT PATIENT UNABLE TO TOLERATE MODE CHANGE TO AC DUE TO INCREASED PEAK PRESSURE OF +[id number] PATIENT UNABLE TO MAINTAIN Vt GREATER THAN 320ml AND I/E RATIO GREATER THAN 1:1.8 TO 1:2.0 PER IDEAL BOY WEIGHT FORMULA 6CC = 355ml INCREASED PC TO 25 DECREASED I/TIME TO 0.70 ABG pO2 146.8mmHg WITH SATURATION OF 100% TITRATED FIO2 TO 80% BUREAU DIRECTOR TO OBTAIN ABG AFTER 1 HOUR TO VALIDATE FOREMENTIONED VENTILATOR CHANGES HARSAH/RN NOTIFIED OF CHANGES Addendum: 04/05/20 at 1048 by [place] RT AFTER MODE CHANGE TO AC CHANGED BACK TO PC
--- NOTE | 2020-04-05 10:55 | NUR ---
SARAHY CALLED FOR PT CONDITION UPDATE, UPDATE REPORTED TO SARAHY VIA [employer]TENSION SERVICE SPECIALIST JOSSUE #[id number]
--- NOTE | 2020-04-05 11:48 | NUR ---
TOLERATING VENTILATORY SUPPORT WITHOUT INCIDENT EQUAL CHEST RISE WITH GOOD AERATION THROUGHOUT BILATERAL LUNG BARRON AIRWAY PATENT
--- NOTE | 2020-04-05 11:56 | NUR ---
DR QUIROZ AT BEDSIDE
[2020-04-05] MEDS: MEROPENEM 500 MG in NACL 0.9% 50 ML IV SCH (11:59)
[2020-04-05] MEDS ORDERED: VANCOMYCIN 500 MG VIAL PO SCH (12:00)
--- NOTE | 2020-04-05 12:10 | NUR ---
CALLED DR. HONG RAMOS [id number] NOTIFIED OF ABG RESULTS WILL REVIEW IN [facility]
[2020-04-05] MEDS: DEXTROSE 50% 50 ML SYR IVP PRN (13:05)
--- NOTE | 2020-04-05 13:05 | NUR ---
BEDSIDE GLUCOSE 56, D50 ONE AMP GIVEN PER PRN ORDER, DR RAMOS CALLED TO NOTIFY, ASKED IF FEEDING CAN RESUME WITH 0 RESIDUAL, BUT WANTS FEEDING TO BE ON HOLD UNTIL NEURO CONSULT DONE.
--- NOTE | 2020-04-05 13:40 | NUR ---
RESTING WELL EQUAL CHEST RISE REVIEWED ABG AT 1205 pO289.8 WITH SATURATION AT 97% TITRATED FIO2 TO 70% DECREASED PEEP TO 8 cmH2O DEEP TRACHEAL SUCTION FOR MODERATE THIN YELLOW SECRETIONS AIRWAY PATENT GOVERNMENT AFFAIRS RESEARCHER TO NOTIFY HARSHA/KRISTAL OF VENTILATOR CHANGES Addendum: 04/05/20 at 1701 by Low [place] RT pO289.8 = pO2 89.8
[2020-04-05] MEDS: FLUCONAZOLE 200 MG/NS PREMIX 100 ML IV SCH (14:09)
--- NOTE | 2020-04-05 15:38 | NUR ---
LAB AT [facility] FOR BLOOD CULTURE DRAW
--- NOTE | 2020-04-05 15:46 | NUR ---
NO EVIDENCE OF SOB NOTED GOOD CHEST RISE AIRWAY PATENT
--- NOTE | 2020-04-05 16:30 | NUR ---
REPEAT BLOOD SUGAR 123, 2 PIV STARTED TO LEFT FA AND WRIST BOTH 20G, DOPAMINE DRIP CONTINUES ON PERIPHERAL LINE, PICC LINE REMOVED FROM R UPPER ARM, CATH TIP INTACT, BLEEDING CONTROLLED, CATH TIP SENT LAB FOR CULTURE, STOOL COLLECTED FROM RECTAL TUBE GREENISH BROWN LIQUID, SENT TO LAB FOR C-DIFF, PT CLEANED, RE POSITIONED, PT REMAINS ONLY RESPONSIVE TO LIGHT PAIN. PER DR DODGE, PT NEEDS 24 HR BREAK FROM PICC LINE, OK TO INSERT NEW PICC AFTER 1630 TOMORROW AM, WILL ENDORSE TO NEXT SHIFT.
--- NOTE | 2020-04-05 17:34 | NUR ---
TOLERATING VENTILATORY SUPPORT NOTED NO APPARENT DISTRESS NOTED EQUAL CHEST RISE AIRWAY PATENT
[2020-04-05] MEDS: VANCOMYCIN 500 MG VIAL PO SCH ×2 (17:49→23:32)
--- NOTE | 2020-04-05 19:45 | NUR ---
RECEIVED REPORT FROM AM SHIFT. PATIENT SEEN AND ASSESSED. PATIENT TRACH TO VENT WITH PORTEX SIZE 7 AND SECURED WITH TRACH TIE. AUSCULTATION REVEALS BILATERAL RALES BREATH SOUNDS. NOTICED ADEQUATE BILATERAL CHEST RISE AND FALL. PATIENT ON VENT SETTINGS AC/PC 25,R 22, +8, 70% WITH SPO2 OF 93%. VENT PLUGGED IN RED OUTLET, HOB > 30 DEGREES, AMBU BAG AT BEDSIDE, AND ALARMS SET AND AUDIBLE. PATIENT IS IN NO RESPIRATORY DISTRESS AT THIS TIME. MDI TX GIVEN ORDERED VIA INLINE AND PATIENT TOLERATED WELL WITH NO ADVERSE REACTION. SUCTION SMALL YELLOW THICK SECRETIONS FROM TUBE. AIRWAY IS PATIENT. WILL CONTINUE TO MONITOR PATIENT.
--- NOTE | 2020-04-05 19:50 | NUR ---
DR. ADAMS AT BEDSIDE. SUGGESTED TO INCREASED PEEP SO THAT WE CAN TITRATED FiO2 DOWN TO AVOID O2 TOXICITY. DOCTOR AGREED. WILL CONTINUE TO MONITOR. PEEP TITRATED FROM 8 cmH20 TO 88gaZ51. Fi02 DECREASED FROM 70% TO 60% WITH SPO2 OF 91%.
--- NOTE | 2020-04-05 20:00 | NUR ---
RECEIVED REPORT FROM DAY SHIFT RN. PT TRACH TO VENT. A/C PC FIO2 60%, RATE 22, PEEP 10. PT IS LETHARGIC. ORAL MUCOSA PINK AND MOIST. LUNG SOUNDS DIMINISHED. RESPIRATION EVEN AND UNLABORED. PULSES PALPABLE. G-TUBE IN PLACE, AUSCULTATED, POSITIVE PLACEMENT AND CLAMPED. PT HAS ACCESSES ON THE RIGHT CHEST TUNNELLED CATHETER FOR DIALYSIS, PERIPHERAL LINE ON THE LEFT WRIST AND LEFT FOREARM 20G. RECTAL TUBE IN PLACE, PATENT AND DRAINING TO GRAVITY. DROPLET PRECAUTION MAINTAINED. HOB 30 DEGREES, BED IN LOWEST POSITION, SIDE RAILS UP. SAFETY MEASURES OBSERVED. WILL CONTINUE TO MONITOR PT. Addendum: 04/06/20 at 0056 by Franki Taylor RN ON DOPAMINE DRIP @ 5MCG/KG/MIN. DRY WEIGHT 59.8 KG.
[2020-04-05] MEDS: ATORVASTATIN 20 MG TAB PO SCH (20:25)
--- NOTE | 2020-04-05 21:06 | NUR ---
URINE SPECIMEN COLLECTED. SENT TO THE LAB FOR ANALYSIS.
--- NOTE | 2020-04-05 22:00 | NUR ---
TURNED AND REPOSITIONED PT. ORAL CARE PROVIDED. GLORY CARE. NO DISTRESS OBSERVED. WILL CONTINUE TO MONITOR.
[2020-04-06] VITALS (100 sets, daily range): BP systolic 81–148; BP diastolic 39–77
--- NOTE | 2020-04-06 00:13 | NUR ---
PT STILL ON DOPAMINE DRIP. BS: 88. TURNED AND REPOSITIONED PT. WILL CONTINUE TO MONITOR.
[2020-04-06] MEDS: ALBUTEROL HFA MDI 90 MCG/ACTUATION 8 GM INH SCH ×4 (00:56→19:27)
--- NOTE | 2020-04-06 02:00 | NUR ---
PT WAS TURNED AND REPOSITIONED. ORAL CARE PROVIDED. TRACH TO VENT, NO RESPIRATORY DISTRESS OBSERVED. WILL CONTINUE TO MONITOR.
--- NOTE | 2020-04-06 04:25 | NUR ---
BS: 99. NO INSULIN COVERAGE. PT NPO. TURNED AND REPOSITIONED. PRESSURE AREAS OFF LOADED. NO DISTRESS OBSERVED. WILL CONTINUE TO MONITOR.
[2020-04-06] MEDS: BLOOD GLUCOSE MONITORING 1 DEV DEV FS SCH ×5 (04:31→20:13)
[2020-04-06] MEDS: METOCLOPRAMIDE 10 MG/2 ML INJ VIAL IVP SCH ×3 (04:31→20:13)
[2020-04-06] MEDS: ALUMINUM HYDROXIDE 64 MG/ML BOTTLE PO SCH ×3 (04:31→20:13)
--- NOTE | 2020-04-06 06:30 | NUR ---
VANCOCIN GIVEN BUT UNABLE TO SCAN MEDICATION DUE TO UNREADABLE BARCODE.
[2020-04-06] MEDS: DEXT 5% /NACL 0.9% 1,000 ML IV SCH (07:03)
[2020-04-06 07:05] LABS: CARBON DIOXIDE 19.8 mmol/L (21-32); CREATININE 3.5 mg/dL (0.6-1.3); POTASSIUM 3.8 mmol/L (3.5-5.1)
[2020-04-06 07:14] LABS: PHOSPHORUS 7.5 mg/dL (2.5-4.9)
--- NOTE | 2020-04-06 07:18 | NUR ---
ENDORSED PT TO DAY SHIFT NURSE FOR CONTINUITY OF CARE.
--- NOTE | 2020-04-06 07:30 | NUR ---
RECEIVED PATIENT ON BED WITH TRACHE TO VENT AC/PC PINSP 25 ,FIO2=60 PERCENT,PEEP=10,RATE=22.PT SATURATION TO 96 PERCENT.PT ON DOPAMINE DRIP AT 4.98 MCG/KG/MIN WITH 59.8 KG DRY WT.PT.SA=515/64.NSR ON THE MONITOR.FLEXISEAL INTACT.RIGHT SC HD CATHETER DRESSING DRY AND INTACT.FLACC=0.WILL MONITOR.
[2020-04-06] MEDS: VANCOMYCIN 500 MG VIAL PO SCH ×3 (07:33→17:13)
[2020-04-06 08:09] LABS: HEMATOCRIT 26.1 % (36-48); HEMOGLOBIN 8.2 g/dL (12.0-16.0); MEAN CORPUSCULAR HEMOGLOBIN 31 pg (27-31); MEAN CORPUSCULAR HGB CONC 32 g/dL (33-37); MEAN CORPUSCULAR VOLUME 96.5 fL (80-94); WHITE BLOOD COUNT (AUTO) 31.7 K/uL (4.8-10.8)
[2020-04-06 08:10] LABS: CORRECTED WHITE BLOOD COUNT 29.1 K/uL (4.5-11.0); LYMPHOCYTES % (MANUAL) 5 % (20-46); PLATELET COUNT (AUTO) 128 K/uL (140-450)
[2020-04-06] MEDS: CHOLECALCIFEROL 1,000 IU TAB NG SCH (08:10)
[2020-04-06] MEDS: POLYVINYL ALCOHOL 1.4% OP 15 ML SOL OP SCH ×3 (08:10→17:10)
[2020-04-06 08:11] LABS: EOSINOPHILS % (MANUAL) 1 % (0-4); MONOCYTES % (MANUAL) 5 % (5-12)
[2020-04-06] MEDS: LOSARTAN 25 MG TAB PO SCH ×2 (08:11→20:25)
[2020-04-06] MEDS: PANTOPRAZOLE 40 MG INJ VIAL IVP SCH (08:11)
[2020-04-06] MEDS: METOPROLOL 25 MG TAB PO SCH ×2 (08:12→20:25)
[2020-04-06] MEDS: INSULIN NPH HUMAN ISOPHANE 100 UNIT/ML VIAL SUBQ SCH ×2 (08:32→20:37)
[2020-04-06] MEDS: PHARMACY COMMENTS MC SCH (08:32)
--- NOTE | 2020-04-06 08:33 | NUR ---
BS=93 .RN DID NOT GIVE HUMULIN N BECAUSE PT HAS A TENDENCY FOR BS TO GO DOWN.ALL BP MEDS NOT GIVEN PT ON DOPAMINE DRIP.
--- NOTE | 2020-04-06 09:10 | NUR ---
DR ALCALA NOTIFIED RESIDUAL IS 30 ML FROM GTUBE.
[2020-04-06 10:04] LABS: ALBUMIN 1.7 g/dL (3.4-5.0); BILIRUBIN,DIRECT 0.1 mg/dL (0.0-0.3); TOTAL BILIRUBIN 0.5 mg/dL (0.0-1.0)
--- NOTE | 2020-04-06 10:45 | NUR ---
CAM UPDATED ABOUT PTS CONDITION.
[2020-04-06] MEDS: MEROPENEM 500 MG in NACL 0.9% 50 ML IV SCH (11:29)
[2020-04-06] MEDS: FLUCONAZOLE 200 MG/NS PREMIX 100 ML IV SCH (12:30)
--- NOTE | 2020-04-06 13:38 | NUR ---
DR MARK UPDATED ABOUT PTS CONDITION AND CTSCAN WAS SCHEDULED AT 1030 BUT [address]SCAN DID NOT SHOW UP YET.AWAITING FOR THEM
--- NOTE | 2020-04-06 14:00 | NUR ---
per social work lecturer pt is not stable enough to go to other hospital for MRI.[facility] Nurse Staff talked to Dr Palmer and made aware that pt is unstable to go for MRI.
[2020-04-06] MEDS: DOPamine 400 MG/D5W PREMIX 250 ML IV PRN (14:58)
--- NOTE | 2020-04-06 15:15 | NUR ---
ct scan called and will do in 20 minutes due to them seeing pt in ER.
--- NOTE | 2020-04-06 15:43 | NUR ---
tacos -daughter in law updated about pts condition especially pt going for ct scan
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
--- NOTE | 2020-04-06 16:05 | NUR ---
PT WENT TO CT SCAN WITH A MONITOR AND WITH RT AND CURRICULUM FACILITATOR
--- NOTE | 2020-04-06 16:35 | NUR ---
04/06/20 RD FOLLOW UP COMPLETED PLEASE REFER TO NUTRITION ASSESSMENT UNDER CARE ACTIVITY FOR ESTIMATED NUTRITIONAL NEEDS. 1. WHEN MEDICALLY STABLE CONSIDER GRADUALLY RESTARTING NEPRO 1.8 TO GOAL 40 ML/HR WITH PROSOURCE BID AND DIANE BID. START AT 10 ML/HR, INCREASE 10 MLQH -THIS WILL PROVIDE 960 ML OF VOLUME, 1848 CALORIES, 107 GM OF PROTEIN, WHICH MEETS 100% OF ESTIMATED KCAL AND PROTEIN NEEDS 2. CONTINUE FREE WATER FLUSH OF 100 ML Q6H 3. CONTINUE NEPHRO-BRE 4. RD TO FOLLOW-UP 2-3 DAYS, HIGH RISK RITU OG RD
--- NOTE | 2020-04-06 16:43 | NUR ---
PT CAME BACK FROM CT SCAN ACCOMPANIED BY RN,TUMBLING MACHINE OPERATOR,RT WITH A MONITOR.
--- NOTE | 2020-04-06 19:38 | NUR ---
Report given to Penny for continuity of care.
--- NOTE | 2020-04-06 20:00 | NUR ---
PT TRACH TO VENT. A/C PC FIO2 55%, RATE 22, PEEP 8. PT IS LETHARGIC. ON DOPAMINE DRIP. DRY WEIGHT 59.8KG.ORAL MUCOSA PINK AND MOIST. LUNG SOUNDS DIMINISHED. RESPIRATION EVEN AND UNLABORED. PULSES PALPABLE. G-TUBE IN PLACE, AUSCULTATED, POSITIVE PLACEMENT AND CLAMPED. DROPLET PRECAUTION MAINTAINED. HOB 30 DEGREES, BED IN LOWEST POSITION, SIDE RAILS UP. SAFETY MEASURES OBSERVED. PT HAS ACCESSES ON THE RIGHT CHEST TUNNELLED CATHETER FOR DIALYSIS, PERIPHERAL LINE ON THE LEFT WRIST AND LEFT FOREARM 20G. RECTAL TUBE IN PLACE, PATENT AND DRAINING TO GRAVITY. WILL CONTINUE TO MONITOR PT.
[2020-04-06] MEDS: ATORVASTATIN 20 MG TAB PO SCH (20:13)
[2020-04-06] MEDS: DEXTROSE 50% 50 ML SYR IVP PRN (20:20)
--- NOTE | 2020-04-06 20:30 | NUR ---
PLT COUNT: 128L. HEPARIN SUBQ HELD, DR. VASQUEZ AWARE. WILL CONTINUE TO MONITOR.
--- NOTE | 2020-04-06 20:45 | NUR ---
BS: 58. DEXTROSE 50% 50ML GIVEN AD ORDERED. PT NPO AT THIS TIME. WILL CONTINUE TO MONITOR.
--- NOTE | 2020-04-06 21:05 | NUR ---
LATEST BS: 157. NO SIGNS OF DISTRESS OBSERVED. ORAL CARE PROVIDED. GLORY CARE. WILL CONTINUE TO MONITOR.
--- NOTE | 2020-04-06 22:09 | NUR ---
FEEDING HUNG AT THIS TIME. RUNNING @ 10MLS/HR WITH 100MLS/6HRS FWF. WILL CONTINUE TO MONITOR.
--- NOTE | 2020-04-06 23:00 | NUR ---
PICC LINE NURSE IN THE UNIT FOR PICC INSERTION.
--- NOTE | 2020-04-06 23:45 | NUR ---
OK TO USE PICC LINE ON THE RIGHT UPPER ARM PER PICC NURSE. X-RAY OBTAINED.
[2020-04-07] VITALS (50 sets, daily range): BP systolic 87–159; BP diastolic 43–91
--- NOTE | 2020-04-07 | NUR ---
PT WAS TURNED AND REPOSITIONED, ORAL CARE PROVIDED. NO DISTRESS OBSERVED. WILL CONTINUE TO MONITOR.
--- NOTE | 2020-04-07 00:30 | NUR ---
VANCOCIN ADMINISTERED. LATEST BS: 88. NO RESPIRATORY DISTRESS OBSERVED. WILL CONTINUE TO MONITOR.
--- NOTE | 2020-04-07 02:00 | NUR ---
PT TURNED AND REPOSITIONED. MOUTH CARE PROVIDED. NO DISTRESS OBSERVED. WILL CONTINUE TO MONITOR.
--- NOTE | 2020-04-07 02:00 | NUR ---
INCREASED FEEDING RATE TO 20 ML/HR. PT TOLERATING FEEDING WELL. WILL INCREASE AGAIN IN A LATER TIME. WILL CONTINUE TO MONITOR.
[2020-04-07] MEDS: ALBUTEROL HFA MDI 90 MCG/ACTUATION 8 GM INH SCH ×4 (02:05→19:27)
[2020-04-07] MEDS: BLOOD GLUCOSE MONITORING 1 DEV DEV FS SCH ×7 (04:00→23:39)
--- NOTE | 2020-04-07 04:15 | NUR ---
BS: 73, NO RESPI DISTRESS, TRACH TO VENT. PRESSURE AREAS OFF LOADED.
[2020-04-07] MEDS: METOCLOPRAMIDE 10 MG/2 ML INJ VIAL IVP SCH ×3 (05:07→20:31)
[2020-04-07] MEDS: ALUMINUM HYDROXIDE 64 MG/ML BOTTLE PO SCH ×3 (05:07→20:31)
[2020-04-07] MEDS: VANCOMYCIN 500 MG VIAL PO SCH ×2 (05:09)
--- NOTE | 2020-04-07 06:00 | NUR ---
MORNING ROUTINE PROVIDED. NO DISTRESS OBSERVED. TURNED AND REPOSITIONED. WILL CONTINUE TO MONITOR.
[2020-04-07 06:25] LABS: ANION GAP 18.5 (8-16); CARBON DIOXIDE 19.4 mmol/L (21-32); POTASSIUM 3.9 mmol/L (3.5-5.1)
[2020-04-07 06:29] LABS: BASOPHILS % (AUTO) 0.1 % (0.0-2.0); EOSINOPHILS # (AUTO) 0.1 K/uL (0-0.4); EOSINOPHILS % (AUTO) 0.6 % (0.0-4.0); HEMATOCRIT 22.3 % (36-48); HEMOGLOBIN 7.1 g/dL (12.0-16.0); LYMPHOCYTES % (AUTO) 4.8 % (20.5-51.1); MEAN CORPUSCULAR HEMOGLOBIN 30 pg (27-31); MEAN CORPUSCULAR HGB CONC 32 g/dL (33-37); MEAN CORPUSCULAR VOLUME 94.9 fL (80-94); MONOCYTES # (AUTO) 0.7 K/uL (0.8-1.0); MONOCYTES % (AUTO) 3.7 % (1.7-9.3); NEUTROPHILS # (AUTO) 18.6 K/uL (1.8-7.7); NEUTROPHILS % (AUTO) 90.8 % (42.2-75.2); PLATELET COUNT (AUTO) 116 K/uL (140-450); RED BLOOD CELL COUNT(AUTO) 2.35 MIL/uL (4.20-5.40); RED CELL DISTRIBUTION WIDTH 20.5 % (11.6-13.7); WHITE BLOOD COUNT (AUTO) 20.5 K/uL (4.8-10.8)
[2020-04-07 06:30] LABS: MAGNESIUM 1.8 mg/dL (1.8-2.4); PHOSPHORUS 7.4 mg/dL (2.5-4.9)
[2020-04-07] MEDS: DEXT 5% /NACL 0.9% 1,000 ML IV SCH (06:46)
--- NOTE | 2020-04-07 07:15 | NUR ---
ENDORSED PT TO DAY SHIFT RN FOR CONTINUITY OF CARE.
--- NOTE | 2020-04-07 07:32 | NUR ---
BEDSIDE REPORT RECEIVED FROM SITE SAFETY MANAGER NURSE, RESP WITH TRACH TO VENT WITH SETTING OF ACPC FIO2 55%, RR 22 PEEP 8, RESP UNLABORED,RR AT 22, SKIN WARM DRY COLOR WNL, ON ON HEATER TENDER HR 84, RR 22, BP 118/63, O2SAT 94%, SKIN DRY COLOR WNL, SUBCLIAVIAN R UPPER CHEST, R UA PICC LINE, SITES WNL, PEG TUBE IN PLACE, FEEDING ON GOING AT 30ML/HR, RECTAL TUBE IN PLACE LIQ STOOL, PT RESPONDS TO VOICE, FOLLOWS COMMANDS, POC REVIEWED, ALL SAFETY MEASURES IN PLACE, WILL CONTINUE TO MONITOR.
[2020-04-07 07:37] LABS: ALBUMIN 1.5 g/dL (3.4-5.0); BILIRUBIN,DIRECT 0.1 mg/dL (0.0-0.3); TOTAL BILIRUBIN 0.5 mg/dL (0.0-1.0)
[2020-04-07] MEDS: LOSARTAN 25 MG TAB PO SCH ×2 (07:52→20:31)
[2020-04-07] MEDS: METOPROLOL 25 MG TAB PO SCH ×2 (07:53→20:31)
[2020-04-07] MEDS: INSULIN NPH HUMAN ISOPHANE 100 UNIT/ML VIAL SUBQ SCH ×2 (09:00→20:31)
[2020-04-07] MEDS: PHARMACY COMMENTS MC SCH (09:00)
[2020-04-07] MEDS: POLYVINYL ALCOHOL 1.4% OP 15 ML SOL OP SCH ×3 (09:00→16:34)
[2020-04-07] MEDS: EPOETIN ALFA 10,000 UNITS/ML VIAL IV SCH (09:12)
[2020-04-07] MEDS: PANTOPRAZOLE 40 MG INJ VIAL IVP SCH (09:12)
[2020-04-07] MEDS: CHOLECALCIFEROL 1,000 IU TAB NG SCH (09:13)
--- NOTE | 2020-04-07 09:45 | NUR ---
AM MEDS GIVEN, BP MEDS HELD, INSULIN HELD FOR HYPOGLYCEMIA THIS AM. MD AWARE PT REFUSES ORAL CARE, REPOSITIONED.
--- NOTE | 2020-04-07 10:10 | NUR ---
DIALYSIS NURSE AT BEDSIDE
[2020-04-07] MEDS: MEROPENEM 500 MG in NACL 0.9% 50 ML IV SCH (12:28)
[2020-04-07] MEDS: FLUCONAZOLE 200 MG/NS PREMIX 100 ML IV SCH (12:29)
[2020-04-07] MEDS: INSULIN LISPRO SLIDING SCALE 100 UNITS/ML VIAL SUBQ PRN ×2 (13:14→23:39)
--- NOTE | 2020-04-07 13:30 | NUR ---
DIALYSIS COMPLETED 2000ML TAKEN OUT PER DIALYSIS NURSE MOONE.
--- NOTE | 2020-04-07 16:08 | NUR ---
BLOOD SUGAR 88, NO NEED FOR INSULIN PER SLIDING SCALE, BED BATH GIVEN, WOUND CARE DONE, RE POSITIONED, PT AROUSES EASILY TO VOICE, MAKES EYE CONTACTS
--- NOTE | 2020-04-07 19:38 | NUR ---
RECEIVED REPORT FROM AM SHIFT. PATIENT SEEN AND ASSESSED. PATIENT TRACH TO VENT WITH PORTEX SIZE 7 AND SECURED WITH TRACH TIE. AUSCULTATION REVEALS BILATERAL COARSE BREATH SOUNDS. NOTICED ADEQUATE BILATERAL CHEST RISE AND FALL. PATIENT ON VENT SETTINGS AC/PC 26, R 22, +8, 65% WITH SPO2 OF 95%. VENT PLUGGED IN RED OUTLET, HOB > 30 DEGREES, AMBU BAG AT BEDSIDE, AND ALARMS SET AND AUDIBLE. PATIENT IS IN NO RESPIRATORY DISTRESS AT THIS TIME. MDI TX GIVEN ORDERED VIA INLINE AND PATIENT TOLERATED WELL WITH NO ADVERSE REACTION. SUCTION SMALL CLEAR THICK SECRETIONS FROM TUBE. AIRWAY IS PATIENT. WILL CONTINUE TO MONITOR PATIENT.
--- NOTE | 2020-04-07 20:00 | NUR ---
PT TRACH TO VENT. A/C PC FIO2 65%, RATE 22, PEEP 8. PT IS AWAKE. OPEN EYES TO NAME AND SHAKING. ORAL MUCOSA PINK AND MOIST. LUNG SOUNDS DIMINISHED. RESPIRATION EVEN AND UNLABORED. PULSES PALPABLE. G-TUBE TO FEEDING, RUNNING NEPRO @40MLS/HR WITH 100MLS/Q6HRS, AUSCULTATED, POSITIVE PLACEMENT. DROPLET PRECAUTION MAINTAINED. HOB 30 DEGREES, BED IN LOWEST POSITION, SIDE RAILS UP. SAFETY MEASURES OBSERVED. PT HAS ACCESSES ON THE RIGHT CHEST TUNNELLED CATHETER FOR DIALYSIS, RIGHT UPPER ARM PICC LINE INFUSING D5NS @ 25ML/HR, PERIPHERAL LINE ON THE LEFT WRIST AND LEFT FOREARM 20G. ALL ASYMPTOMATIC, PATENT AND INTACT. RECTAL TUBE IN PLACE, PATENT AND DRAINING TO GRAVITY. HD PT, ANURIC. WILL CONTINUE TO MONITOR PT.
--- NOTE | 2020-04-07 20:34 | NUR ---
BS: 134 , NO INSULIN COVERAGE NEEDED. HELD NPH 50 UNITS. MD MADE AWARE. BP: 153/71- BLOOD PRESSURE MEDICINES GIVEN ORDERED. WILL CONTINUE TO MONITOR PT.
--- NOTE | 2020-04-07 21:00 | NUR ---
HEPARIN SUBQ NOT ADMINISTERED D/T PLT 116L. DR. VASQUEZ AWARE.
--- NOTE | 2020-04-07 22:10 | NUR ---
PT IN NO DISTRESS OBSERVED. PT WAS TURNED AND REPOSITIONED. ORAL CARE PROVIDED. WILL CONTINUE TO MONITOR.
--- NOTE | 2020-04-07 23:40 | NUR ---
BLOOD SUGAR 181, 2 UNITS HUMALOG GIVEN ORDERED. RECTAL BAG FULL AND REPLACED WITH NEW BAG. 500 ML STOOL OUTPUT AT THIS TIME. PRESSURE AREAS OFF LOADED. TURNED AND REPOSITIONED PT. WILL CONTINUE TO MONITOR.
[2020-04-08] VITALS (22 sets, daily range): BP systolic 114–175; BP diastolic 53–95
[2020-04-08] MEDS: ALBUTEROL HFA MDI 90 MCG/ACTUATION 8 GM INH SCH ×4 (01:17→19:40)
--- NOTE | 2020-04-08 01:27 | NUR ---
TITRATED FiO2 FROM 65% TO 60% WITH SPO2 OF 94%. PATIENT IN NO APPARENT RESPIRATORY DISTRESS AT THIS TIME. WILL CONTINUE TOO MONITOR PATIENT.
--- NOTE | 2020-04-08 02:00 | NUR ---
ORAL CARE PROVIDED. TURNED AND REPOSITIONED PT. PRESSURE AREAS OFF LOADED. WILL CONTINUE TO MONITOR.
[2020-04-08] MEDS: BLOOD GLUCOSE MONITORING 1 DEV DEV FS SCH ×6 (04:31→23:22)
[2020-04-08] MEDS: ALUMINUM HYDROXIDE 64 MG/ML BOTTLE PO SCH ×3 (04:32→20:59)
[2020-04-08] MEDS: METOCLOPRAMIDE 10 MG/2 ML INJ VIAL IVP SCH ×3 (04:32→20:59)
[2020-04-08] MEDS: INSULIN LISPRO SLIDING SCALE 100 UNITS/ML VIAL SUBQ PRN ×3 (04:33→15:04)
--- NOTE | 2020-04-08 04:40 | NUR ---
HEPARIN SUBQ NOT ADMINISTERED D/T PLT 116L. DR. VASQUEZ MADE AWARE AND OKAYED NOT TO GIVE. TURNED AND REPOSITIONED PT. NO DISTRESS OBSERVED. WILL MONITOR PT.
--- NOTE | 2020-04-08 04:47 | NUR ---
BS: 167. 2 UNITS HUMALOG GIVEN. TOLERATING FEEDING WELL. NO RESIDUALS. WILL CONTINUE TO MONITOR.
[2020-04-08 06:24] LABS: BASOPHILS % (AUTO) 0.3 % (0.0-2.0); EOSINOPHILS # (AUTO) 0.1 K/uL (0-0.4); EOSINOPHILS % (AUTO) 0.4 % (0.0-4.0); HEMATOCRIT 22.6 % (36-48); HEMOGLOBIN 7.3 g/dL (12.0-16.0); LYMPHOCYTES % (AUTO) 5.8 % (20.5-51.1); MEAN CORPUSCULAR HEMOGLOBIN 31 pg (27-31); MEAN CORPUSCULAR HGB CONC 32 g/dL (33-37); MEAN CORPUSCULAR VOLUME 95.2 fL (80-94); MONOCYTES # (AUTO) 0.7 K/uL (0.8-1.0); MONOCYTES % (AUTO) 4.1 % (1.7-9.3); NEUTROPHILS # (AUTO) 15.2 K/uL (1.8-7.7); NEUTROPHILS % (AUTO) 89.4 % (42.2-75.2); PLATELET COUNT (AUTO) 114 K/uL (140-450); RED BLOOD CELL COUNT(AUTO) 2.37 MIL/uL (4.20-5.40); RED CELL DISTRIBUTION WIDTH 22.4 % (11.6-13.7)
--- NOTE | 2020-04-08 06:34 | NUR ---
PATIENT STILL REMAINS ON VENT SUPPORT. FiO2 HAS BEEN TITRATED TO 60%. AIRWAY IS PATENT. EQUAL CHEST RISE AND FALL.TUBE IS SECURED AND INTACT. PATIENT IN NO DISTRESS AT THIS TIME. WILL CONTINUE TO MONITOR.
[2020-04-08] MEDS: DEXT 5% /NACL 0.9% 1,000 ML IV SCH (06:53)
--- NOTE | 2020-04-08 07:17 | NUR ---
ENDORSED PT TO DAY SHIFT RN FOR CONTINUITY OF CARE.
--- NOTE | 2020-04-08 07:25 | NUR ---
BEDSIDE REPORT RECEIVED FROM HAT BODY INSPECTOR NURSE, RESP WITH TRACH TO VENT WITH SETTING OF ACPC FIO2 55%, RR 22 PEEP 8, RESP UNLABORED,RR AT 25, SKIN WARM DRY COLOR WNL, ON ON CLOTH PATTERN MAKER HR 79, RR 25, BP 150/60, O2SAT 96%, SKIN DRY COLOR WNL, SUBCLIAVIAN R UPPER CHEST, R UA PICC LINE, SITES WNL, PEG TUBE IN PLACE, FEEDING ON GOING AT 40ML/HR, RECTAL TUBE IN PLACE LIQ STOOL, PT RESPONDS TO VOICE, FOLLOWS COMMANDS, POC REVIEWED, ALL SAFETY MEASURES IN PLACE, WILL CONTINUE TO MONITOR.
--- NOTE | 2020-04-08 07:30 | NUR ---
REDUCED FIO2 TO 55% PT SAT REMAINS STABLE AT 94%. WILL CONTINUE TO MONITOR
[2020-04-08 07:49] LABS: ALBUMIN 1.4 g/dL (3.4-5.0); ANION GAP 12.8 (8-16); CARBON DIOXIDE 26.4 mmol/L (21-32); CREATININE 2.2 mg/dL (0.6-1.3); MAGNESIUM 1.6 mg/dL (1.8-2.4); PHOSPHORUS 2.5 mg/dL (2.5-4.9); TOTAL BILIRUBIN 0.5 mg/dL (0.0-1.0)
[2020-04-08 08:25] LABS: POTASSIUM 2.2 mmol/L (3.5-5.1)
[2020-04-08] MEDS: INSULIN NPH HUMAN ISOPHANE 100 UNIT/ML VIAL SUBQ SCH ×2 (09:00→21:03)
[2020-04-08] MEDS ORDERED: MAG SULF 2000 MG/WATER PREMIX 50 ML IV SCH (09:00)
[2020-04-08] MEDS ORDERED: NACL 0.9% 500 ML IV SCH (09:05)
[2020-04-08] MEDS: PANTOPRAZOLE 40 MG INJ VIAL IVP SCH (10:25)
[2020-04-08] MEDS: CHOLECALCIFEROL 1,000 IU TAB NG SCH (10:26)
[2020-04-08] MEDS: LOSARTAN 25 MG TAB PO SCH ×2 (10:27→20:59)
[2020-04-08] MEDS: POLYVINYL ALCOHOL 1.4% OP 15 ML SOL OP SCH ×3 (10:27→17:00)
[2020-04-08] MEDS: METOPROLOL 25 MG TAB PO SCH ×2 (10:28→20:59)
[2020-04-08] MEDS ORDERED: POTASSIUM CHLORIDE 40 MEQ, LIDOCAINE MPF 1% 25 MG in NACL 0.9% 250 ML IV SCH (12:00)
[2020-04-08] MEDS: MEROPENEM 500 MG in NACL 0.9% 50 ML IV SCH (12:17)
[2020-04-08] MEDS: FLUCONAZOLE 200 MG/NS PREMIX 100 ML IV SCH (12:30)
--- NOTE | 2020-04-08 13:23 | NUR ---
ASSEMBLER FITTER NOTE: MARY CARMEN CONTACTED [place] [employer] [phone]. MARY CARMEN PROVIDED [place] [employer] DISP[employer] TO PATIENT'S ADDRESS: [address] [place] [address] [address]. [place] [address]. MARY CARMEN WILL FOLLOW UP.
--- NOTE | 2020-04-08 13:30 | NUR ---
PER DR ISRAEL, HOLD HEPARIN FOR PLATELETS 114
--- NOTE | 2020-04-08 14:45 | NUR ---
WOUND CARE DONE, PT REPOSITIONED, BED BATH GIVEN, PERICARE DONE, PT BUDDY WELL.
--- NOTE | 2020-04-08 14:55 | NUR ---
PHYSICAL THERAPY AT BEDSIDE
--- NOTE | 2020-04-08 15:34 | NUR ---
P.T. NOTES D/C FROM P.T. AFTER TX, NO NOTED SIGNIFICANT FUNC IMPROVEMENT AT THIS TIME; ENDORSED TO NURSING TO ASSIST W/ POSITIONING, PROM UE/LE INCORPORATED W/ ADLs; WILL RE ASSESS WHEN MORE APPROPRIATE FOR SKILLED P.T.
--- NOTE | 2020-04-08 15:57 | NUR ---
DR SWANSON AT BEDSIDE
--- NOTE | 2020-04-08 15:59 | NUR ---
DIALYSIS NURSE JOEY AT BEDSIDE
--- NOTE | 2020-04-08 17:44 | NUR ---
PT GRABBING TRACH TUBING AT HER NECK, TRYING TO PULL AWAY DIALYSIS CATHETER WITH RIGHT HAND, INSTRUCTED TO KEEP HER HAND OFF OF TUBINGS BUT NOT FOLLOWING COMMANDS, MD NOTIFIED, ORDER FOR SOFT REST RESTRAINTS OBTAINED.
--- NOTE | 2020-04-08 19:00 | NUR ---
DIALYSIS DONE, 2000ML TAKEN OUT PER NURSE KWON, MRI QUESTIONNAIRE GIVEN TO DR VASQUEZ/KAYY, DR SULTANA TO CALL DAUGHTER TO COMPLETE THE FORM, THEN WE WILL FAX TO [facility]. BEDSIDE REPORT GIVEN TO POUNCING LATHE OPERATOR NURSE.
--- NOTE | 2020-04-08 19:20 | NUR ---
REPORT RECEIVED FROM AM NURSE AT BEDSIDE. PT IN STABLE CONDITION. AAOX0-1. FLACC 0. NO SOB TRACH TO VENT. VENT SETTINGS AC P/C FIO2@50%, RR 22, PEEP 8 O2 SAT@96%. PT HAS GTUBE. PT HAS RECTAL TUBE. TUBE FEEDING@40ML/HR WITH 50ML WATER FLUSH Q6H. PT IS BEDBOUND. IV SITE R UA PICC DOUBLE LUMEN PATENT AND INTACT. LEFT AC 20G SL PATENT AND INTACT. L WRIST 20G PATENT AND INTACT. PT ALSO HAS R SUBCLAVIAN DOUBLE LUMEN TUNNEL CATH FOR HEMODIALYSIS. SKIN WARM, DRY, AND NOT INTACT DUE TO MULTIPLE WOUND. SEE WOUND NOTES. BED LOCKED IN LOW POSITION. CALL JIMENES WITHIN REACH. SAFETY PRECAUTION IN PLACE. ALL NEEDS MET AT THIS TIME.
--- NOTE | 2020-04-08 19:30 | NUR ---
RECEIVED REPORT FROM AM SHIFT. PATIENT SEEN AND ASSESSED. PATIENT TRACH TO VENT WITH PORTEX SIZE 7 AND SECURED WITH TRACH TIE. AUSCULTATION REVEALS BILATERAL COARSE BREATH SOUNDS. NOTICED ADEQUATE BILATERAL CHEST RISE AND FALL. PATIENT ON VENT SETTINGS AC/PC 26, R 22, +8, 50% WITH SPO2 OF 94%. VENT PLUGGED IN RED OUTLET, HOB > 30 DEGREES, AMBU BAG AT BEDSIDE, AND ALARMS SET AND AUDIBLE. PATIENT IS IN NO RESPIRATORY DISTRESS AT THIS TIME. MDI TX GIVEN ORDERED VIA INLINE AND PATIENT TOLERATED WELL WITH NO ADVERSE REACTION. SUCTION SMALL CLEAR THICK SECRETIONS FROM TUBE. AIRWAY IS PATIENT. WILL CONTINUE TO MONITOR PATIENT.
--- NOTE | 2020-04-08 20:56 | NUR ---
BS 225. 50 UNITS OF HUMULIN N GIVEN SUBQ. COZAAR, ALUMINUM HYDROXIDE, AND LOPRESSOR GIVEN THROUGH GTUBE. REGLAN GIVEN IVP. HEPARIN WAS DRAWN BUT NOT GIVEN DUE TO PLT 114 AND HAD BEEN TRENDING DOWN. FEEDING WAS CHANGED. ORAL CARE GIVEN.
[2020-04-08 21:05] LABS: ANION GAP 8.4 (8-16); CARBON DIOXIDE 30.3 mmol/L (21-32)
[2020-04-08 21:06] LABS: CREATININE 1.3 mg/dL (0.6-1.3)
[2020-04-08 21:08] LABS: POTASSIUM 2.7 mmol/L (3.5-5.1)
[2020-04-08] MEDS ORDERED: KCL 20 MEQ/WATER INJ PREMIX 200 ML IV SCH (21:50)
--- NOTE | 2020-04-08 22:08 | NUR ---
BAG 1 OF 2 POTASSIUM GIVEN FOR POTASSIUM LEVEL OF 2.7.
[2020-04-08] MEDS: MICAFUNGIN SODIUM 100 MG in NACL 0.9% 100 ML IV SCH (22:35)
--- NOTE | 2020-04-08 22:35 | NUR ---
MYCAMINE NOT AVAILABLE IN THE HOSPITAL. WAITING FOR PHARMACY IN THE MORNING.
--- NOTE | 2020-04-08 23:22 | NUR ---
BS 126. NO INSULIN COVERAGE NEEDED.
[2020-04-09] VITALS (24 sets, daily range): BP systolic 89–165; BP diastolic 52–83
--- NOTE | 2020-04-09 00:10 | NUR ---
POTASSIUM BAG 2 OF 2 GIVEN.
[2020-04-09] MEDS: ALBUTEROL HFA MDI 90 MCG/ACTUATION 8 GM INH SCH ×4 (01:45→19:24)
--- NOTE | 2020-04-09 02:20 | NUR ---
PT IN BED. PT APPEARS TO BE SLIGHTLY LESS LETHARGIC OPENING HER EYES AND SMILING.
[2020-04-09] MEDS: BLOOD GLUCOSE MONITORING 1 DEV DEV FS SCH ×8 (04:45→20:00)
--- NOTE | 2020-04-09 04:45 | NUR ---
BS 11. D50 GIVEN. MD NOTIFIED. WILL REASSESS.
[2020-04-09] MEDS: ALUMINUM HYDROXIDE 64 MG/ML BOTTLE PO SCH ×3 (05:36→20:28)
[2020-04-09] MEDS: METOCLOPRAMIDE 10 MG/2 ML INJ VIAL IVP SCH ×3 (05:36→20:28)
--- NOTE | 2020-04-09 05:36 | NUR ---
ALUMINUM HYDROXIDE GIVEN THROUGH GTUBE. REGLAN GIVEN IVP. BS REASSESSED. 88. MD NOTIFIED. NO CHANGE IN ORDERS. LINENS CHANGED. PATIENT CLEANED. ORAL CARE GIVEN.
[2020-04-09] MEDS: DEXTROSE 50% 50 ML SYR IVP PRN ×2 (05:37→06:54)
[2020-04-09 05:48] LABS: BASOPHILS % (AUTO) 0.3 % (0.0-2.0); EOSINOPHILS # (AUTO) 0.2 K/uL (0-0.4); EOSINOPHILS % (AUTO) 1.3 % (0.0-4.0); HEMATOCRIT 24.5 % (36-48); HEMOGLOBIN 7.6 g/dL (12.0-16.0); LYMPHOCYTES # (AUTO) 1.1 K/uL (2.5-16.5); LYMPHOCYTES % (AUTO) 6.4 % (20.5-51.1); MEAN CORPUSCULAR HEMOGLOBIN 30 pg (27-31); MEAN CORPUSCULAR HGB CONC 31 g/dL (33-37); MEAN CORPUSCULAR VOLUME 96.5 fL (80-94); MONOCYTES # (AUTO) 0.8 K/uL (0.8-1.0); MONOCYTES % (AUTO) 4.8 % (1.7-9.3); NEUTROPHILS # (AUTO) 14.5 K/uL (1.8-7.7); NEUTROPHILS % (AUTO) 87.2 % (42.2-75.2); PLATELET COUNT (AUTO) 127 K/uL (140-450); RED BLOOD CELL COUNT(AUTO) 2.53 MIL/uL (4.20-5.40); RED CELL DISTRIBUTION WIDTH 22.2 % (11.6-13.7); WHITE BLOOD COUNT (AUTO) 16.6 K/uL (4.8-10.8)
[2020-04-09] MEDS ORDERED: EPOETIN ALFA 10,000 UNITS/ML VIAL IV SCH (06:23)
--- NOTE | 2020-04-09 06:32 | NUR ---
PATIENT STILL REMAINS ON VENT SUPPORT. FiO2 HAS BEEN TITRATED TO 40%. AIRWAY IS PATENT. EQUAL CHEST RISE AND FALL.TUBE IS SECURED AND INTACT. PATIENT IN NO DISTRESS AT THIS TIME. WILL CONTINUE TO MONITOR.
[2020-04-09 06:45] LABS: ALBUMIN 1.4 g/dL (3.4-5.0); ANION GAP 6.1 (8-16); CREATININE 1.6 mg/dL (0.6-1.3); MAGNESIUM 1.7 mg/dL (1.8-2.4); POTASSIUM 3.1 mmol/L (3.5-5.1); TOTAL BILIRUBIN 0.5 mg/dL (0.0-1.0)
--- NOTE | 2020-04-09 06:54 | NUR ---
RECHECKED BLOOD SUGAR DUE TO LOW READINGS. BS 47. SECOND D50 GIVEN.
--- NOTE | 2020-04-09 07:05 | NUR ---
CRITICAL LAB VALUES GLUCOSE 20, PHOS 0.6. MD NOTIFIED.
[2020-04-09 07:07] LABS: PHOSPHORUS 0.6 mg/dL (2.5-4.9)
--- NOTE | 2020-04-09 07:18 | NUR ---
REPORT GIVEN TO AM NURSE AT BEDSIDE. PT IN STABLE CONDITION.
--- NOTE | 2020-04-09 07:20 | NUR ---
RECIVED PT ON VENT WITH SETTINGS CHARTED BREATH SOUNDS PRESENT BILAT COARSE TRACH SITE SECURE SXN PT WITH MIN AMT OFF WHITE SECS AMBU BAG AT BEDSIDE VENT PLUGGED INTO RED OUTLET WILL CONTINUE TO MONITOR PT ON VENT
--- NOTE | 2020-04-09 07:38 | NUR ---
BEDSIDE REPORT RECEIVED FROM EDISCOVERY PROJECT MANAGER NURSE, RESP WITH TRACH TO VENT WITH SETTING OF ACPC FIO2 40%, RR 22 PEEP 8, RESP UNLABORED,RR AT 22, SKIN WARM DRY COLOR WNL, ON ON FUEL STORAGE TECHNICIAN HR 79, RR 22, BP , O2SAT 98%, SKIN DRY COLOR WNL, SUBCLIAVIAN R UPPER CHEST, R UA PICC LINE, SITES WNL, PEG TUBE IN PLACE, FEEDING ON GOING AT 40ML/HR, RECTAL TUBE IN PLACE LIQ STOOL, PT RESPONDS TO VOICE, FOLLOWS SOME COMMANDS, PT ON SOFT RESTRAINT TO RIGHT WRIST, PER REPORT, PT HAS BEEN REACHING FOR TRACH RISKING PULLING OUT, POC REVIEWED, ALL SAFETY MEASURES IN PLACE, WILL CONTINUE TO MONITOR.
--- NOTE | 2020-04-09 07:45 | NUR ---
DR DIXON AND MEDICAL TEAM AT BEDSIDE FOR EVAL
[2020-04-09] MEDS: DEXT 5% /NACL 0.9% 1,000 ML IV SCH (08:05)
[2020-04-09] MEDS: PANTOPRAZOLE 40 MG INJ VIAL IVP SCH (08:13)
[2020-04-09] MEDS: CHOLECALCIFEROL 1,000 IU TAB NG SCH (08:13)
[2020-04-09] MEDS: LOSARTAN 25 MG TAB PO SCH ×2 (08:14→20:28)
[2020-04-09] MEDS: METOPROLOL 25 MG TAB PO SCH ×2 (08:15→20:28)
[2020-04-09] MEDS: POLYVINYL ALCOHOL 1.4% OP 15 ML SOL OP SCH ×2 (08:17→13:07)
[2020-04-09] MEDS: MICAFUNGIN SODIUM 100 MG in NACL 0.9% 100 ML IV SCH (08:24)
[2020-04-09] MEDS ORDERED: MAG SULF 2000 MG/WATER PREMIX 50 ML IV SCH (09:00)
[2020-04-09] MEDS ORDERED: MICAFUNGIN SODIUM 100 MG in NACL 0.9% 100 ML IV SCH (09:00)
[2020-04-09] MEDS ORDERED: INSULIN LANTUS 100 UNITS/ML 10 ML VIAL SUBQ SCH (09:00)
[2020-04-09] MEDS: EPOETIN ALFA 10,000 UNITS/ML VIAL IV SCH (11:22)
[2020-04-09] MEDS: MEROPENEM 500 MG in NACL 0.9% 50 ML IV SCH (11:24)
[2020-04-09] MEDS ORDERED: POTASSIUM CHLORIDE 40 MEQ, LIDOCAINE MPF 1% 25 MG in NACL 0.9% 250 ML IV SCH (12:00)
[2020-04-09] MEDS ORDERED: POTASSIUM PHOSPHATE 15 MM in NACL 0.9% 250 ML IV SCH (12:00)
[2020-04-09] MEDS ORDERED: LIDOCAINE MPF 1% 10 MG/ML VIAL INJ SCH (13:15)
--- NOTE | 2020-04-09 13:19 | NUR ---
DR WORLEY CALLED FOR UPDATE, NOTIFIED THAT PT HAD DIALYSIS ON 04/07 & , REPORTED OF PLAN TO REMOVE TUNNEL CATH DUE TO SUSPECTED INFECTION PER DR HUDSON, DR WORLEY WILL ORDER DIALYSIS FOR TODAY AND THEN HAVE THE CATH REMOVED. DR WORLEY TO ORDER DIALYSIS FOR TODAY, JOEY CALLED BY DAKOTA GIRALDO.
--- NOTE | 2020-04-09 13:30 | NUR ---
RECEIVED REPORT FROM HARSHA GIRALDO. ET TUBE TO VENT, ACPC FIO2 AT 40% O2 SAT 90% GT FEEDING IN PROGRESS.IV FLUID VAI UPPER RT ARM PICK LINE.NO REDNESS OR SWELLING NOTED.
--- NOTE | 2020-04-09 14:00 | NUR ---
BLOOD GLUCOSE 94 AT THIS TIME, OK TO CHECK Q2HRS PER DR ALCALA.
--- NOTE | 2020-04-09 14:00 | NUR ---
REPORT GIVEN TO DAKOTA GIRALDO, WOUND CARE DONE, BED BATH GIVEN, PERICARE DONE, REPOSITIONED FOR COMFORT.
--- NOTE | 2020-04-09 14:00 | NUR ---
REPOSITION. DRESSING CHANGED SKIN CARE GIVENPT. IS IN COMFORT POSITION,
--- NOTE | 2020-04-09 14:02 | NUR ---
DIALYSIS NURSE AT BEDSIDE
--- NOTE | 2020-04-09 14:57 | NUR ---
04/09/20 RD FOLLOW UP COMPLETED PLEASE REFER TO NUTRITION ASSESSMENT UNDER CARE ACTIVITY FOR ESTIMATED NUTRITIONAL NEEDS. 1. CONTINUE NEPRO 1.8 AT GOAL 40 ML/HR X 24 HR WITH PROSOURCE BID AND DIANE BID. START AT 10 ML/HR, INCREASE 10 MLQH -THIS WILL PROVIDE 960 ML OF VOLUME, 1848 CALORIES, 107 GM OF PROTEIN, WHICH MEETS 100% OF ESTIMATED KCAL AND PROTEIN NEEDS 2. CONTINUE FREE WATER FLUSH OF [address] TO FOLLOW-UP 2-3 DAYS, HIGH RISK RITU OG, RONEY
--- NOTE | 2020-04-09 17:08 | NUR ---
HEMODIALYSIS COMPLETED , REMOVED 2000MLOF FLUID. PATIENT CONDITION STABLE AT THE TIME. VITAL SIGN WNL.
--- NOTE | 2020-04-09 17:54 | NUR ---
CONTINUED TO MONITOR PT ONVENT WITH SETTINGS CHARTED BREATH SOUNDS PRESENT BILAT DIMINISHED SXN PT WITH MIN AMT OFF WHITE SECS AMBU BAG BEDSIDE VENT PLUGGED INTO RED OUTLETAMBU BAG BEDSIDE
--- NOTE | 2020-04-09 18:30 | NUR ---
BLOOD GLUCOSE 166. NO INSULIN COVER GIVEN ORDERED FROM DR. ISRAEL.
--- NOTE | 2020-04-09 19:00 | NUR ---
RECEIVED PT FROM DAY SHIFT ON DOCUMENTED SETTINGS. VENT PLUGGED INTO RED OUTLET. BMV AT BEDSIDE. TRACH SECURED AND INTACT. ALARMS SET. PT IN NO DISTRESS. WILL CONTINUE TO MONITOR
--- NOTE | 2020-04-09 19:45 | NUR ---
PT AWAKE, FOLLOWING COMMANDS, EYE TRACKING. ABLE TO MOVE UPPER EXTREMITIES. BILAT LOWER EXTREMITIES WEAK. TRACH TO VENT ACPC @ 40% FIO2. LUNGS DIMINISHED. SR ON MONITOR 80S, +1 EDEMA GENERALIZED. +2 LEFT HAND EDEMA. ABD SOFT NON DISTENDED. PEG TUBE IN PLACE >30 ML RESIDUALS NOTED, NEPRO FEEDINGS RUNNING. PT ANURIC @ THIS TIME. RECTAL TUBE IN PLACE DARK GREEN DRAINAGE NOTED. SKIN NON INTACT, PRESSURE ULCER TO BUTTOCKS/SACRAL AREA. DRESSING CDI. BED LOCKED IN LOWEST POSITION. FLACC 0. PERIPHERAL IV TO L HAND NOTED. HOB >30 DEGREES. SAFETY PRECAUTIONS IN PLACE. BILAT WRIST RESTRAINTS IN PLACE; RELEASED REAPPLIED, SKIN INTACT.
--- NOTE | 2020-04-09 20:00 | NUR ---
DR. FARLEY @ BEDSIDE. D/C'D TUNNELED HD CATH, PT TOLERATED PROCEDURE, 4X4 GAUZE DRESSING IN PLACE, WITH [address].
[2020-04-10] VITALS (22 sets, daily range): BP systolic 99–176; BP diastolic 44–87
--- NOTE | 2020-04-10 | NUR ---
PT TURNED AND REPOSITIONED FOR COMFORT
[2020-04-10] MEDS: ALBUTEROL HFA MDI 90 MCG/ACTUATION 8 GM INH SCH ×4 (00:30→19:40)
[2020-04-10] MEDS: BLOOD GLUCOSE MONITORING 1 DEV DEV FS SCH ×6 (04:00→20:00)
--- NOTE | 2020-04-10 04:00 | NUR ---
PT REMAINS ON DOCUMENTED SETTINGS. NO CHANGES MADE. TRACH SECURED AND INTACT. PATENT AIRWAY. ALARMS SET. PT IS IN NO DISTRESS. WILL CONT TO MONITOR
--- NOTE | 2020-04-10 04:30 | NUR ---
AM CARE DONE, PT TURNED AND REPOSITIONED. LINEN CHANGED. NO ACUTE DISTRESS @ THIS TIME. WILL CONTINUE TO OBSERVE.
[2020-04-10 05:34] LABS: BASOPHILS # (AUTO) 0.1 K/uL (0.00-0.22); BASOPHILS % (AUTO) 0.6 % (0.0-2.0); EOSINOPHILS # (AUTO) 0.1 K/uL (0-0.4); EOSINOPHILS % (AUTO) 0.9 % (0.0-4.0); HEMATOCRIT 27.2 % (36-48); HEMOGLOBIN 8.6 g/dL (12.0-16.0); LYMPHOCYTES # (AUTO) 1.2 K/uL (2.5-16.5); LYMPHOCYTES % (AUTO) 8.4 % (20.5-51.1); MEAN CORPUSCULAR HEMOGLOBIN 31 pg (27-31); MEAN CORPUSCULAR HGB CONC 32 g/dL (33-37); MEAN CORPUSCULAR VOLUME 96.5 fL (80-94); MONOCYTES % (AUTO) 6.8 % (1.7-9.3); NEUTROPHILS # (AUTO) 12.1 K/uL (1.8-7.7); NEUTROPHILS % (AUTO) 83.3 % (42.2-75.2); PLATELET COUNT (AUTO) 147 K/uL (140-450); RED BLOOD CELL COUNT(AUTO) 2.82 MIL/uL (4.20-5.40); RED CELL DISTRIBUTION WIDTH 23.1 % (11.6-13.7); WHITE BLOOD COUNT (AUTO) 14.5 K/uL (4.8-10.8)
[2020-04-10] MEDS: ALUMINUM HYDROXIDE 64 MG/ML BOTTLE PO SCH ×3 (05:57→20:08)
[2020-04-10] MEDS: INSULIN LISPRO SLIDING SCALE 100 UNITS/ML VIAL SUBQ PRN ×6 (05:57→20:11)
[2020-04-10] MEDS: METOCLOPRAMIDE 10 MG/2 ML INJ VIAL IVP SCH ×3 (05:57→20:13)
[2020-04-10 06:20] LABS: ALBUMIN 1.6 g/dL (3.4-5.0); ANION GAP 8.4 (8-16); CARBON DIOXIDE 30.4 mmol/L (21-32); CREATININE 1.4 mg/dL (0.6-1.3); MAGNESIUM 1.9 mg/dL (1.8-2.4); PHOSPHORUS 1.6 mg/dL (2.5-4.9); TOTAL BILIRUBIN 0.5 mg/dL (0.0-1.0)
--- NOTE | 2020-04-10 07:25 | NUR ---
REPORT GIVEN TO DAY SHIFT FOR CONTINUITY OF CARE.
--- NOTE | 2020-04-10 07:26 | NUR ---
RECEIVED BEDSIDE REPORT FROM FLYING SHEAR OPERATOR NURSE, PT RESTING, NO DISTRESS NOTED, PT AWAKE, ALERT, ABLE TO FOLLOW COMMANDS, PT ON TRACH TO VENT, ACPC FIO2 40% RR 22, PEEP 8, PT SATURATION O2 SAT 94%, NO SOB NOTED, EQUAL BILATERAL CHEST RISE, IV TO L FA 20g, PANTENT, INTACT, INFUSING WELL, RECTAL TUBE IN PLACE DRAINING TO GRAVITY, G TUBE IN PLACE, RESIDUAL 10ML, TOLERATING FEEDING WELL, INITIAL ASSESSMENT DONE, ALL SAFETY PRECAUTION MET, CALL LIGHT WITHIN REACH, WILL CONTINUE TO MONITOR.
--- NOTE | 2020-04-10 07:50 | NUR ---
RECIVED PT ON VENT WITH SETTINGS CHARTED BREATH SOUNDS PRESENT BILAT DIMINISHED SXN PT WITH MIN AMT OFF WHITE SECS TRACH SITE SECURE ANBU BAG AT BEDSIDE VENT PLUGGED INTO RED OUTLET WILL CONTINUE TO MONITOR PT ON VENT
[2020-04-10 08:00] LABS: POTASSIUM 2.8 mmol/L (3.5-5.1)
[2020-04-10] MEDS: PANTOPRAZOLE 40 MG INJ VIAL IVP SCH (09:06)
[2020-04-10] MEDS: LOSARTAN 25 MG TAB PO SCH ×2 (09:06→20:09)
[2020-04-10] MEDS: METOPROLOL 25 MG TAB PO SCH ×2 (09:06→20:09)
[2020-04-10] MEDS: CHOLECALCIFEROL 1,000 IU TAB NG SCH (09:06)
[2020-04-10] MEDS: INSULIN LANTUS 100 UNITS/ML 10 ML VIAL SUBQ SCH (09:33)
[2020-04-10] MEDS: POLYVINYL ALCOHOL 1.4% OP 15 ML SOL OP SCH ×3 (09:33→16:30)
[2020-04-10] MEDS: MICAFUNGIN SODIUM 100 MG in NACL 0.9% 100 ML IV SCH (09:33)
--- NOTE | 2020-04-10 09:33 | NUR ---
DUE MEDICATION GIVEN, PT TOLERATED WELL, NO DISTRESS NOTED, CALL LIGHT WITHIN REACH, WILL CONTINUE TO MONITOR.
[2020-04-10] MEDS: DEXT 5% /NACL 0.9% 1,000 ML IV SCH (09:42)
[2020-04-10] MEDS ORDERED: POTASSIUM CHLORIDE 40 MEQ, LIDOCAINE MPF 1% 25 MG in NACL 0.9% 250 ML IV SCH (10:00)
--- NOTE | 2020-04-10 10:07 | NUR ---
VENT CHANGES PER CHARTEDPER DR SWANSON WILL CONTINUE TO MONITOR PT ON VENT
--- NOTE | 2020-04-10 10:45 | NUR ---
WOUND CARE RE-EVALUATION NOTE: INTEGUMENTARY: -SACRALCOCCYX PRESSURE INJURY STAGE 1 NON-BLANCHABLE REDNESS -LEFT BUTTOCK 1.3X1.8 CM SUPERFICIAL DEPTH IRREGULAR SHAPE WITH CENTER WOUND BED BLACK ESCHAR 1X1.5 CM, SURROUNDING REDNESS EXTENDED TO GLORY-ANAL -MOISTURE ASSOCIATED DERMATITIS GROINS, GLORY-ANAL AND INNER BUTTOCKS -RIGHT CHEEKS DRY DARK BROWN SCAB 1.2X2.3 CM, NO S/S OF INFECTION, GLORY WOUND SKIN INTACT -LEFT EAR DRY SCAB CLOSE WOUND POC DISCUSSED WITH DR. ALCALA, WILL CONTINUE SAME TREATMENTS NOW, UN-AVOIDABLE PRESSURE INJURY DUE TO MULTIPLES COMORBIDITIES. COMORBIDITIES: RESPIRATORY FAILURE, HYPOXIA, INFECTION, DM, KIDNEY FAILURE WITH HD, LOW ALBUMIN LEVEL AND HOB ELEVATED THE MAJORITY OF TIMES DUE TO MEDICAL REASONS. Addendum: 04/10/20 at 1211 by Tiffany Akhtar RN (Grace) -RIGHT CHEEKS DRY DARK BROWN STABLE ESCHAR 1X2 CM, NO S/S OF INFECTION, GLORY WOUND SKIN INTACT
--- NOTE | 2020-04-10 11:09 | NUR ---
PT NOT BUDDY AC AT THIS TIME PLACED BACK ON PC WITH SETTINGS CHARTED PER DR SWANSON
[2020-04-10] MEDS: MEROPENEM 500 MG in NACL 0.9% 50 ML IV SCH (11:39)
[2020-04-10] MEDS: NACL 0.9% 500 ML IV SCH (11:40)
[2020-04-10] MEDS: MORPHINE SULFATE 2 MG/ML SYR IVP PRN (16:13)
--- NOTE | 2020-04-10 16:13 | NUR ---
PT FLACC 8, PAIN MEDICATION MORPHINE PER DR ORDER ADMINISTERED, PT TOLERATED WELL, WILL CONTINUE TO MONITOR.
--- NOTE | 2020-04-10 19:26 | NUR ---
BEDSIDE REPORT RECEIVED FROM AM SHIFT RN. PT AWAKE. OPENS EYES TO NAME. TRACH TO VENT, AC/PC MODE FIO2 40%, RR 15, RATE 22, PEEP 8. SINUS RHYTHM ON MONITOR. GTUBE TO FEEDING. 50 ML RESIDUALS NOTED. LFA SALINE LOCKED, INTACT, PATENT, GOOD BLOOD RETURN AND RFA 20G RUNNING TKO. RECTAL TUBE IN PLACE. PT ON SOFT R WRIST RESTRAINT. NO SKIN BREAKDOWN NOTED. SKIN WARM AND DRY. AFEBRILE. SKIN NON INTACT, SEE WOUND ASSESSMENT. HOB 30 DEGREES. BED LOCKED IN LOWEST POSITION. WILL CONTINUE TO MONITOR.
--- NOTE | 2020-04-10 19:26 | NUR ---
ENDORSED PT TO DIRECTOR OF SUSTAINABILITY NURSE FOR CONTINUOUS OF CARE.
--- NOTE | 2020-04-10 21:15 | NUR ---
PT REPOSITIONED, ORAL CARE PROVIDED. SCHEDULED MEDICATIONS GIVEN. RT AT BEDSIDE. SAFETY PRECAUTIONS IN PLACE. WILL CONTINUE TO MONITOR.
--- NOTE | 2020-04-10 22:30 | NUR ---
PHONE CALL FROM PTS FAMILY, CAM, UPDATED ON PTS CONDITION.QUESTIONS ANSWERED.
--- NOTE | 2020-04-10 23:30 | NUR ---
PT HAS EYES CLOSED, RESPIRATIONS EVEN AND UNLABORED. SAFETY PRECAUTIONS IN PLACE. WILL CONTINUE TO MONITOR.
[2020-04-11] VITALS (23 sets, daily range): BP systolic 103–182; BP diastolic 57–97
--- NOTE | 2020-04-11 | NUR ---
BLOOD SUGAR, 216. 4 UNITS OF HUMALOG GIVEN
[2020-04-11] MEDS: ALBUTEROL HFA MDI 90 MCG/ACTUATION 8 GM INH SCH ×4 (01:32→19:37)
--- NOTE | 2020-04-11 02:35 | NUR ---
PT HAS EYES CLOSED, RESPIRATIONS EVEN AND UNLABORED. SAFETY PRECAUTIONS IN PLACE. WILL CONTINUE TO MONITOR.
[2020-04-11] MEDS: BLOOD GLUCOSE MONITORING 1 DEV DEV FS SCH ×6 (04:00→20:00)
--- NOTE | 2020-04-11 04:30 | NUR ---
PT CLEANED, REPOSITIONED, FEEDING STARTED. SAFETY PRECAUTIONS IN PLACE. HOB 30 DEGREES. BED LOCKED IN LOWEST POSITION. WILL CONTINUE MONITOR.
--- NOTE | 2020-04-11 04:41 | NUR ---
PT REMAINS ON DOCUMENTED SETTINGS. NO CHANGES MADE.TRACH SECURED AND INTACT. PATENT AIRWAY. PT IS IN NO DISTRESS. WILL CONT TO MONITOR
[2020-04-11] MEDS: ALUMINUM HYDROXIDE 64 MG/ML BOTTLE PO SCH ×3 (04:58→20:54)
[2020-04-11] MEDS: METOCLOPRAMIDE 10 MG/2 ML INJ VIAL IVP SCH ×3 (04:58→20:54)
[2020-04-11] MEDS: INSULIN LISPRO SLIDING SCALE 100 UNITS/ML VIAL SUBQ PRN ×5 (05:00→20:30)
[2020-04-11 06:34] LABS: HEMATOCRIT 27.3 % (36-48); HEMOGLOBIN 8.5 g/dL (12.0-16.0); MEAN CORPUSCULAR HEMOGLOBIN 31 pg (27-31); MEAN CORPUSCULAR HGB CONC 31 g/dL (33-37); MEAN CORPUSCULAR VOLUME 98.5 fL (80-94); PLATELET COUNT (AUTO) 160 K/uL (140-450); RED BLOOD CELL COUNT(AUTO) 2.77 MIL/uL (4.20-5.40); RED CELL DISTRIBUTION WIDTH 24.8 % (11.6-13.7); WHITE BLOOD COUNT (AUTO) 14.4 K/uL (4.8-10.8)
--- NOTE | 2020-04-11 06:55 | NUR ---
DR VOSS IN TO ASSESS PT.
[2020-04-11 07:01] LABS: ALBUMIN 1.7 g/dL (3.4-5.0); ANION GAP 12.1 (8-16); CARBON DIOXIDE 26.5 mmol/L (21-32); CREATININE 2.3 mg/dL (0.6-1.3); PHOSPHORUS 2.7 mg/dL (2.5-4.9); POTASSIUM 3.6 mmol/L (3.5-5.1); TOTAL BILIRUBIN 0.5 mg/dL (0.0-1.0)
--- NOTE | 2020-04-11 07:14 | NUR ---
BEDSIDE REPORT GIVEN TO AM SHIFT RN FOR CONTINUITY OF CARE.
--- NOTE | 2020-04-11 07:15 | NUR ---
RECEIVED BEDSIDE REPORT FROM AUTOMOBILE PARTS ASSEMBLER NURSE, PT RESTING, NO DISTRESS NOTED, PT AWAKE, ALERT, ABLE TO FOLLOW COMMANDS, PT ON TRACH TO VENT, ACPC FIO2 40% RR 22, PEEP 8, PT SATURATION O2 SAT 95%, NO SOB NOTED, EQUAL BILATERAL CHEST RISE, IV TO L FA 20g, PATENT, INTACT, SL, AND R FA 20G PATENT, INTACT, INFUSING WELL, RECTAL TUBE IN PLACE DRAINING TO GRAVITY, G TUBE IN PLACE, RESIDUAL 50ML, TOLERATING FEEDING WELL, INITIAL ASSESSMENT DONE, ALL SAFETY PRECAUTION MET, CALL LIGHT WITHIN REACH, WILL CONTINUE TO MONITOR.
[2020-04-11 07:43] LABS: EOSINOPHILS % (MANUAL) 3 % (0-4); LYMPHOCYTES % (MANUAL) 10 % (20-46); MONOCYTES % (MANUAL) 7 % (5-12)
--- NOTE | 2020-04-11 07:47 | NUR ---
RECEIVED ON A IPM Safety ServicesSCAPE R860 VENTILATOR PLUGGED INTO RED OUTLET TOLERATING WELL WITHOUT ADVERSE REACTIONS NOTED TO A PORTEX DFEN#7 AIRWAY SECURE WITH A COMPA TRACH TIE CUFF PRESSURE CHECKED NOTED AMBU BAG AT BEDSIDE LOC AWAKE AND ALERT GOOD CHEST RISE DEEP TRACHEAL SUCTION FOR SMALL THIN YELLOW SECRETIONS AIRWAY PATENT
[2020-04-11] MEDS: PANTOPRAZOLE 40 MG INJ VIAL IVP SCH (09:10)
[2020-04-11] MEDS: CHOLECALCIFEROL 1,000 IU TAB NG SCH (09:10)
[2020-04-11] MEDS: MICAFUNGIN SODIUM 100 MG in NACL 0.9% 100 ML IV SCH (09:10)
[2020-04-11] MEDS: METOPROLOL 25 MG TAB PO SCH ×2 (09:11→20:55)
[2020-04-11] MEDS: LOSARTAN 25 MG TAB PO SCH ×2 (09:11→20:55)
[2020-04-11] MEDS: POLYVINYL ALCOHOL 1.4% OP 15 ML SOL OP SCH ×3 (09:11→16:33)
[2020-04-11] MEDS: INSULIN LANTUS 100 UNITS/ML 10 ML VIAL SUBQ SCH (09:13)
--- NOTE | 2020-04-11 09:13 | NUR ---
DUE MEDICATION ADMINISTERED, PT TOLERATED WELL, NO DISTRESS NOTED, PT RESTING, WILL CONTINUE TO MONITOR
--- NOTE | 2020-04-11 10:07 | NUR ---
STABLE GOOD CHEST RISE AIRWAY PATENT
[2020-04-11] MEDS: EPOETIN ALFA 10,000 UNITS/ML VIAL IV SCH (11:50)
--- NOTE | 2020-04-11 11:52 | NUR ---
NO DISTRESS NOTED EQUAL CHEST RISE AIRWAY PATENT FLAKER TENDER TO MONITOR SATURATION FOR POSSIBLE FIO2 TITRATION
[2020-04-11] MEDS: MEROPENEM 500 MG in NACL 0.9% 50 ML IV SCH (12:09)
--- NOTE | 2020-04-11 12:09 | NUR ---
MERREM DUE ADMINISTERED PER DR ORDER, PT TOLERATED WELL, WILL CONTINUE TO MONITOR.
[2020-04-11] MEDS: NACL 0.9% 500 ML IV SCH (13:23)
--- NOTE | 2020-04-11 14:02 | NUR ---
AWAKE GOOD CHEST RISE DEEP TRACHEAL SUCTION FOR MODERATE THI YELLOW SECRETIONS SATURATION 86% ON FIO2 OF 40% POST HHN THERAPY INCREASED FIO2 TO 50% BOWLING TEACHER TO ADVISE RN
[2020-04-11] MEDS: MORPHINE SULFATE 2 MG/ML SYR IVP PRN (14:51)
--- NOTE | 2020-04-11 14:51 | NUR ---
PT FLACC 8, PRN MORPHINE PER MD ORDER GIVEN, PT TOLERATED WELL, NO DISTRESS NOTED, WILL CONTINUE TO MONITOR.
--- NOTE | 2020-04-11 15:25 | NUR ---
STABLE NO DISTRESS NOTED EQUAL CHEST RISE
--- NOTE | 2020-04-11 16:32 | NUR ---
CHECKED PT BLOOD SUGAR 189, 2 UNITS HUMALOG PER PROTOCOL GIVEN, PT TOLERATED WELL, NO DISTRESS NOTED, WILL CONTINUE TO MONITOR.
--- NOTE | 2020-04-11 17:20 | NUR ---
RESTING COMFORTABLY NO DISTRESS NOTED GOOD CHEST RISE AIRWAY PATENT
--- NOTE | 2020-04-11 18:33 | NUR ---
PT SLEEPING, NO DISTRESS NOTED, CALL LIGHT WITHIN REACH, WILL CONTINUE TO MONITOR.
--- NOTE | 2020-04-11 19:14 | NUR ---
BEDSIDE REPORT RECEIVED FROM AM SHIFT RN. PT AWAKE, ALERT. TRACH TO VENT. FIO2 50%. RATE 22, PEEP 8. SINUS RHYTHM ON MONITOR. L FOREARM AND R FOREARM BOTH 20 G, INTACT, PATENT, GOOD BLOOD RETURN. GTUBE TO FEEDING, 50 RESIDUALS NOTED. RECTAL BAG IN PLACE. SKIN WARM DRY. SKIN NON INTACT. SEE WOUND ASSESSMENT. HOB 30 DEGREES. BED LOCKED IN LOWEST POSITION. WILL CONTINUE TO MONITOR.
--- NOTE | 2020-04-11 19:14 | NUR ---
ENDORSED PT TO TIER TRUCK DRIVER NURSE FOR CONTINUOUS OF CARE.
--- NOTE | 2020-04-11 19:30 | NUR ---
RECEIVED PT FROM DAY SHIFT ON DOCUMENTED SETTINGS. VENT PLUGGED INTO RED OUTLET. BMV AT BEDSIDE. TRACH SECURED AND INTACT. ALARMS SET. PATENT AIRWAY. CUFF PRESSURE CHECKED. PT IN NO DISTRESS. WILL CONTINUE TO MONITOR
--- NOTE | 2020-04-11 20:30 | NUR ---
BLOOD SUGAR 198, 2 UNITS OF HUMALOG GIVEN.
--- NOTE | 2020-04-11 22:22 | NUR ---
PICC LINE NURSE AT BEDSIDE FOR PICC LINE INSERTION. Addendum: 04/11/20 at 2223 by Dion Gresham RN DOCUMENTED ON WRONG PT. PLS DISREGARD.
--- NOTE | 2020-04-11 22:55 | NUR ---
PT FAMILY CALLED, CAM. UPDATED ON PT STATUS.
[2020-04-12] VITALS (23 sets, daily range): BP systolic 100–161; BP diastolic 58–76
--- NOTE | 2020-04-12 | NUR ---
PT PLACED ON VIDEO CALL WITH FAMILY (SON, DAUGHTER IN LAW). PT SMILING AND FOLLOWING COMMANDS IN [place]. WILL CONTINUE TO MONITOR.
[2020-04-12] MEDS: ALBUTEROL HFA MDI 90 MCG/ACTUATION 8 GM INH SCH ×4 (00:06→19:22)
--- NOTE | 2020-04-12 01:45 | NUR ---
HUNG NEW BAG OF CONTINUOS BLADDER IRRIGATION. DARK RED HEMATURIA DRAINING IN PERRY BAG. WILL CONTINUE TO MONITOR. Addendum: 04/12/20 at 0204 by Dion Gresham RN DOCUMENTED ON WRONG PT. PLS DISREGARD
--- NOTE | 2020-04-12 02:56 | NUR ---
PT HAS EYES CLOSED, RESPIRATIONS EVEN AND UNLABORED. SAFETY PRECAUTIONS IN PLACE. WILL CONTINUE TO MONITOR.
[2020-04-12] MEDS: BLOOD GLUCOSE MONITORING 1 DEV DEV FS SCH ×7 (04:00→23:34)
--- NOTE | 2020-04-12 04:00 | NUR ---
PT CLEANED, REPOSITIONED. ORAL CARE PROVIDED. WILL CONTINUE TO MONITOR.
--- NOTE | 2020-04-12 04:30 | NUR ---
FEEDING STARTED. NO RESIDUALS NOTED. WILL CONTINUE TO MONITOR.
[2020-04-12] MEDS: INSULIN LISPRO SLIDING SCALE 100 UNITS/ML VIAL SUBQ PRN ×5 (04:45→21:55)
[2020-04-12] MEDS: ALUMINUM HYDROXIDE 64 MG/ML BOTTLE PO SCH ×3 (05:00→21:53)
[2020-04-12] MEDS: METOCLOPRAMIDE 10 MG/2 ML INJ VIAL IVP SCH ×3 (05:00→20:15)
--- NOTE | 2020-04-12 05:30 | NUR ---
MANUFACTURING HELPER BEDSIDE TO DRAW AM LABS
--- NOTE | 2020-04-12 06:41 | NUR ---
rec'd pt on carescape vent settings pc 26 rr 22 itime 0.70 peep 8 fio2 50% alarms on and audible and bvm at hob vent is plugged into red outlet, mdi tx of albuterol 2 puffs given with no adverse reaction post tx, b\s are coarse bilaterally, sxn pt small amt of thick yellow secretions, pt is trach with portex 7 pt is resting
[2020-04-12 06:53] LABS: BASOPHILS # (AUTO) 0.1 K/uL (0.00-0.22); BASOPHILS % (AUTO) 0.8 % (0.0-2.0); EOSINOPHILS # (AUTO) 0.4 K/uL (0-0.4); EOSINOPHILS % (AUTO) 2.9 % (0.0-4.0); HEMATOCRIT 26.4 % (36-48); HEMOGLOBIN 8.1 g/dL (12.0-16.0); LYMPHOCYTES # (AUTO) 1.8 K/uL (2.5-16.5); MEAN CORPUSCULAR HEMOGLOBIN 30 pg (27-31); MEAN CORPUSCULAR HGB CONC 31 g/dL (33-37); MONOCYTES % (AUTO) 7.2 % (1.7-9.3); NEUTROPHILS # (AUTO) 10.7 K/uL (1.8-7.7); PLATELET COUNT (AUTO) 156 K/uL (140-450); RED BLOOD CELL COUNT(AUTO) 2.66 MIL/uL (4.20-5.40); RED CELL DISTRIBUTION WIDTH 24.6 % (11.6-13.7)
[2020-04-12 07:12] LABS: ALBUMIN 1.6 g/dL (3.4-5.0); ANION GAP 15.3 (8-16); CARBON DIOXIDE 24.3 mmol/L (21-32); MAGNESIUM 2.1 mg/dL (1.8-2.4); PHOSPHORUS 3.5 mg/dL (2.5-4.9); POTASSIUM 3.6 mmol/L (3.5-5.1); TOTAL BILIRUBIN 0.4 mg/dL (0.0-1.0)
--- NOTE | 2020-04-12 07:41 | NUR ---
REPORT GIVEN TO AM SHIFT RN FOR CONTINUITY OF CARE.
--- NOTE | 2020-04-12 08:00 | NUR ---
REPOSITION ORAL GIVEN, PT IS AWAKE AND ALERT VS WITH IN NORMAL LIMIT.
[2020-04-12] MEDS: LOSARTAN 25 MG TAB PO SCH ×2 (08:47→21:15)
[2020-04-12] MEDS: METOPROLOL 25 MG TAB PO SCH ×2 (08:47→20:16)
[2020-04-12] MEDS: CHOLECALCIFEROL 1,000 IU TAB NG SCH (08:47)
[2020-04-12] MEDS: MICAFUNGIN SODIUM 100 MG in NACL 0.9% 100 ML IV SCH (08:48)
[2020-04-12] MEDS: PANTOPRAZOLE 40 MG INJ VIAL IVP SCH (08:48)
[2020-04-12] MEDS: POLYVINYL ALCOHOL 1.4% OP 15 ML SOL OP SCH ×3 (08:49→16:19)
[2020-04-12] MEDS: INSULIN LANTUS 100 UNITS/ML 10 ML VIAL SUBQ SCH (09:31)
--- NOTE | 2020-04-12 10:00 | NUR ---
REPOSITION ORAL CARE GIVEN , RECTAL TUBE INPLACE .
[2020-04-12 10:54] LABS: NEUTROPHILS % (AUTO) 76.5 % (42.2-75.2)
[2020-04-12 10:55] LABS: LYMPHOCYTES % (AUTO) 12.6 % (20.5-51.1)
[2020-04-12] MEDS: NACL 0.9% 500 ML IV SCH (11:15)
--- NOTE | 2020-04-12 12:00 | NUR ---
BLOOD GLUCOSE 234 INSULIN COVER ORDER. PT IS AWAKE AND ALERT.AT THE TIME.
[2020-04-12] MEDS: MEROPENEM 500 MG in NACL 0.9% 50 ML IV SCH (13:04)
--- NOTE | 2020-04-12 14:08 | NUR ---
04/12/20 RD FOLLOW UP COMPLETED PLEASE REFER TO NUTRITION ASSESSMENT UNDER CARE ACTIVITY FOR ESTIMATED NUTRITIONAL NEEDS. 1. CONTINUE NEPRO 1.8 AT GOAL 40 ML/HR WITH PROSOURCE BID AND DIANE BID. START AT 10 ML/HR, INCREASE 10 MLQH -THIS WILL PROVIDE 960 ML OF VOLUME, 1848 CALORIES, 107 GM OF PROTEIN, WHICH MEETS 100% OF ESTIMATED KCAL AND PROTEIN NEEDS 2. CONTINUE FREE WATER FLUSH OF [address] TO FOLLOW-UP 2-3 DAYS, HIGH RISK TERENCE AMBROSIO RD
--- NOTE | 2020-04-12 16:00 | NUR ---
blood glucose 203 insulin cover as ordered.
--- NOTE | 2020-04-12 19:15 | NUR ---
CONDITION STABLE AT THE TIME REPORT GIVE TO EVENING SHIFT AT BED SIDE.
--- NOTE | 2020-04-12 19:20 | NUR ---
RECEIVED REPORT FROM EDNA RN, PT TRACH TO VENT AC/PC FIO2 50% RR 22 PEEP 8, PT AWAKE FOLLOWS SIMPLE COMMANDS, SKIN NON INTACT PRESSURE INJURY TO SACRAL AREA, SCAB RIGHT CHEEK, PT LUNG SOUNDS COARSE, S1 AND S2 HEART SOUNDS HEARD, RECTAL TUBE IN PLACE DRAINING BROWN LIQUID FECES, PT DENIES PAIN, SAFETY PROTOCOLS IN PLACE WILL CONTINUE TO MONITOR PT.
--- NOTE | 2020-04-12 19:23 | NUR ---
RECEIVED REPORT FROM AM SHIFT. PATIENT SEEN AND ASSESSED. PATIENT TRACH TO VENT WITH PORTEX SIZE 7 AND SECURED WITH TRACH TIE. AUSCULTATION REVEALS BILATERAL COARSE BREATH SOUNDS. NOTICED ADEQUATE BILATERAL CHEST RISE AND FALL. PATIENT ON VENT SETTINGS AC/PC 26, R 22, +8, 50% WITH SPO2 OF 100%. FiO2 TITRATED TO 45% WITH SPO2 OF 96%. VENT PLUGGED IN RED OUTLET, HOB > 30 DEGREES, AMBU BAG AT BEDSIDE, AND ALARMS SET AND AUDIBLE. PATIENT IS IN NO RESPIRATORY DISTRESS AT THIS TIME. MDI TX GIVEN ORDERED VIA INLINE AND PATIENT TOLERATED WELL WITH NO ADVERSE REACTION. SUCTION SMALL YELLOW THICK SECRETIONS FROM TUBE. AIRWAY IS PATIENT. WILL CONTINUE TO MONITOR PATIENT.
--- NOTE | 2020-04-12 21:00 | NUR ---
PT MEDS GIVEN AND REPOSITIONED FROM LEFT TO RIGHT LATERAL, ORAL CARE PROVIDED, NO SIGNS OF DISTRESS NOTED WILL CONTINUE TO MONITOR PT
[2020-04-13] VITALS (20 sets, daily range): BP systolic 94–183; BP diastolic 62–83
--- NOTE | 2020-04-13 00:15 | NUR ---
REPOSITIONED PT PROVIDED ORAL CARE, PT RESTING IN BED WILL CONTINUE TO MONITOR PT
[2020-04-13] MEDS: ALBUTEROL HFA MDI 90 MCG/ACTUATION 8 GM INH SCH ×4 (01:37→19:00)
--- NOTE | 2020-04-13 02:00 | NUR ---
REPOSITIONED PT, ATTEMPTED TO PROVIDE ORAL CARE BUT PT REFUSED ORAL CARE AND SHOOK HER HEAD NO WHEN ATTEMPTING
--- NOTE | 2020-04-13 04:15 | NUR ---
CLEANED PT CHANGED LINENS TOOK WOUND CARE PHOTOS, ALL MORNING MEDS GIVEN NO SIGNS OF DISTRESS WILL CONTINUE TO MONITOR PT
[2020-04-13] MEDS: BLOOD GLUCOSE MONITORING 1 DEV DEV FS SCH ×5 (04:39→20:34)
[2020-04-13] MEDS: ALUMINUM HYDROXIDE 64 MG/ML BOTTLE PO SCH ×3 (04:56→20:32)
[2020-04-13] MEDS: METOCLOPRAMIDE 10 MG/2 ML INJ VIAL IVP SCH ×3 (04:56→20:32)
[2020-04-13] MEDS: INSULIN LISPRO SLIDING SCALE 100 UNITS/ML VIAL SUBQ PRN ×3 (04:57→16:00)
[2020-04-13 06:38] LABS: BASOPHILS # (AUTO) 0.1 K/uL (0.00-0.22); BASOPHILS % (AUTO) 0.5 % (0.0-2.0); EOSINOPHILS # (AUTO) 0.4 K/uL (0-0.4); EOSINOPHILS % (AUTO) 2.8 % (0.0-4.0); HEMATOCRIT 26.9 % (36-48); HEMOGLOBIN 8.4 g/dL (12.0-16.0); LYMPHOCYTES # (AUTO) 1.4 K/uL (2.5-16.5); LYMPHOCYTES % (AUTO) 9.8 % (20.5-51.1); MEAN CORPUSCULAR HEMOGLOBIN 31 pg (27-31); MEAN CORPUSCULAR HGB CONC 31 g/dL (33-37); MEAN CORPUSCULAR VOLUME 98.8 fL (80-94); MONOCYTES # (AUTO) 0.8 K/uL (0.8-1.0); MONOCYTES % (AUTO) 5.8 % (1.7-9.3); NEUTROPHILS # (AUTO) 11.2 K/uL (1.8-7.7); NEUTROPHILS % (AUTO) 81.1 % (42.2-75.2); PLATELET COUNT (AUTO) 172 K/uL (140-450); RED BLOOD CELL COUNT(AUTO) 2.72 MIL/uL (4.20-5.40); RED CELL DISTRIBUTION WIDTH 25.1 % (11.6-13.7); WHITE BLOOD COUNT (AUTO) 13.8 K/uL (4.8-10.8)
[2020-04-13 07:06] LABS: ANION GAP 14.7 (8-16); CARBON DIOXIDE 23.2 mmol/L (21-32); CREATININE 3.6 mg/dL (0.6-1.3); POTASSIUM 3.9 mmol/L (3.5-5.1)
--- NOTE | 2020-04-13 07:30 | NUR ---
RECEIVED REPORT FROM FITZ RMalikN PT. ON TRACH TO VENT TOLERATED WELL GT FEEDING TOLERATED PT. ANURIA. RECTAL TUBE DRAIN LIQUID BM.
[2020-04-13] MEDS: LOSARTAN 25 MG TAB PO SCH ×2 (09:00→20:43)
[2020-04-13] MEDS: METOPROLOL 25 MG TAB PO SCH ×2 (09:00→20:33)
[2020-04-13] MEDS: CHOLECALCIFEROL 1,000 IU TAB NG SCH (09:00)
[2020-04-13] MEDS: MICAFUNGIN SODIUM 100 MG in NACL 0.9% 100 ML IV SCH (09:00)
[2020-04-13] MEDS: PANTOPRAZOLE 40 MG INJ VIAL IVP SCH (09:00)
[2020-04-13] MEDS: POLYVINYL ALCOHOL 1.4% OP 15 ML SOL OP SCH ×3 (09:00→17:00)
--- NOTE | 2020-04-13 10:00 | NUR ---
REPOSITION. SKIN CARE AND BACK CARE GIVEN.
[2020-04-13] MEDS: NACL 0.9% 500 ML IV SCH (11:15)
[2020-04-13] MEDS: MEROPENEM 500 MG in NACL 0.9% 50 ML IV SCH (13:36)
--- NOTE | 2020-04-13 15:30 | NUR ---
AGUILAR CATH INSERTED BY DR Edd HOUSTON AT BEDSIDE.
--- NOTE | 2020-04-13 16:00 | NUR ---
CHEST X-RAY SHOW THAT THE CATHETER IS IN THE RIGHT [facility] , CAN BE USE FOR HD.
--- NOTE | 2020-04-13 16:30 | NUR ---
HEMODIALYSIS STARTED AND IN PROGRESS.
--- NOTE | 2020-04-13 19:22 | NUR ---
REPORT GIVE TO MARCELLA AT BEDSIDE.
--- NOTE | 2020-04-13 19:25 | NUR ---
RECEIVED BEDSIDE REPORT FROM MORNING NURSE, PATIENT AAO X 2, ABLE TO FOLLOW SIMPLE COMMANDS. TRACH TO VENT WITH PRESSURE CONTROL FIO2 40%, P 26, R 22, PEEP 3. O2 SAT ABOVE 93%. SR ON ROUTER OPERATOR PIN. DIALYSIS AGUILAR CATH WITH PIG TO RIGHT IJ. PERIPHERAL LINE TO RIGHT FOREARM 20G, LEFT WRIST 20G. G TUBE TO FEEDING, NEPRO 40ML/HR FWF 100ML Q6. RESIDUAL AND PLACEMENT CHECKED. PRESSURE ULCER TO SACRAL AREA, SEE WOUND ASSESSMENT. GENERALIZED BODY WEAKNESS NOTED. RECTAL TUBE IN PLACE, BROWN LIQUID STOOL NOTED. BILATERAL SIDE RAILS UP, BED IN LOW POSITION, CALL LIGHT WITHIN REACH. WILL CONTINUE TO MONITOR.
--- NOTE | 2020-04-13 20:00 | NUR ---
HEMODIALYSIS DONE, REPORT RECEIVED FROM DIALYSIS NURSE. 2L OUT. PATIENT STABLE AT THIS TIME. WILL CONTINUE TO MONITOR.
[2020-04-13] MEDS: hydrALAZINE 20 MG/ML VIAL IVP PRN (20:44)
--- NOTE | 2020-04-13 23:00 | NUR ---
PATIENT TOLERATED WELL WITH VENT. NO ACUTE RESPIRATORY DISTRESS NOTED. WILL CONTINUE TO MONITOR.
[2020-04-14] VITALS (10 sets, daily range): BP systolic 131–183; BP diastolic 64–88
[2020-04-14] MEDS: INSULIN LISPRO SLIDING SCALE 100 UNITS/ML VIAL SUBQ PRN ×4 (01:15→22:10)
[2020-04-14] MEDS: ALBUTEROL HFA MDI 90 MCG/ACTUATION 8 GM INH SCH (01:15)
--- NOTE | 2020-04-14 02:00 | NUR ---
PROVIDED BED BATH, PATIENT TOLERATED WELL. NO ACUTE DISTRESS NOTED. WILL CONTINUE TO MONITOR.
--- NOTE | 2020-04-14 04:30 | NUR ---
BS CHECKED 137 NOTED. TOLERATED WELL WITH TUBE FEEDING. RESIDUAL CHECKED. WILL CONTINUE TO MONITOR.
[2020-04-14] MEDS: BLOOD GLUCOSE MONITORING 1 DEV DEV FS SCH ×6 (04:39→20:40)
[2020-04-14] MEDS: METOCLOPRAMIDE 10 MG/2 ML INJ VIAL IVP SCH ×3 (04:40→21:00)
[2020-04-14] MEDS: ALUMINUM HYDROXIDE 64 MG/ML BOTTLE PO SCH ×3 (04:40→22:05)
[2020-04-14 05:09] LABS: BASOPHILS % (AUTO) 0.1 % (0.0-2.0); EOSINOPHILS # (AUTO) 0.1 K/uL (0-0.4); EOSINOPHILS % (AUTO) 0.6 % (0.0-4.0); HEMATOCRIT 27.5 % (36-48); HEMOGLOBIN 8.5 g/dL (12.0-16.0); LYMPHOCYTES # (AUTO) 0.6 K/uL (2.5-16.5); MEAN CORPUSCULAR HEMOGLOBIN 30 pg (27-31); MEAN CORPUSCULAR HGB CONC 31 g/dL (33-37); MEAN CORPUSCULAR VOLUME 98.1 fL (80-94); MONOCYTES # (AUTO) 0.3 K/uL (0.8-1.0); MONOCYTES % (AUTO) 2.7 % (1.7-9.3); NEUTROPHILS # (AUTO) 11.4 K/uL (1.8-7.7); NEUTROPHILS % (AUTO) 91.6 % (42.2-75.2); PLATELET COUNT (AUTO) 191 K/uL (140-450); RED BLOOD CELL COUNT(AUTO) 2.81 MIL/uL (4.20-5.40); RED CELL DISTRIBUTION WIDTH 24.4 % (11.6-13.7); WHITE BLOOD COUNT (AUTO) 12.4 K/uL (4.8-10.8)
[2020-04-14 05:36] LABS: ALBUMIN 1.5 g/dL (3.4-5.0); CARBON DIOXIDE 29.5 mmol/L (21-32); CREATININE 2.2 mg/dL (0.6-1.3); MAGNESIUM 1.8 mg/dL (1.8-2.4); PHOSPHORUS 3.4 mg/dL (2.5-4.9); POTASSIUM 3.5 mmol/L (3.5-5.1); TOTAL BILIRUBIN 0.5 mg/dL (0.0-1.0)
--- NOTE | 2020-04-14 06:55 | NUR ---
TRANSFERRED FROM ICU-1 TO [facility] 114 REMOVED FROM VENTILATOR PLACED ON SUPPLEMENTAL OXYGEN E-TANK AT 15 LPM TO AMBU BAG/INLINE SUCTION CATHETER/PORTEX #7 AIRWAY BAG DEPRESSION EVERY 6-8 SECONDS BY ANSON RN TOLERATED TRANSFER WELL WITHOUT ADVERSE REACTIONS NOTED SATURATION 93% HR 73
--- NOTE | 2020-04-14 07:05 | NUR ---
RECEIVED ON A [employer] R860 VENTILATOR WITH COMPRESSOR ON PLUGGED INTO RED OUTLET TO A PORTEX DFEN #7 AIRWAY SECURED WITH A COMPA TRACH TIE CUFF PRESSURE CHECKED NOTED AMBU BAG AT BEDSIDE LOC AWAKE TACHYPNEIC POST TRANSFER FRO ICU-1 GOOD CHEST RISE DEEP TRACHEAL SUCTION FOR SMALL THIN YELLOW SECRETIONS AIRWAY PATENT
--- NOTE | 2020-04-14 07:25 | NUR ---
RECEIVED BEDSIDE REPORT FROM SALVAGE ENGINEERING TECHNICIAN, JAMEY BARLOW, FOR CONTINUITY OF CARE. PATIENT AAO X 2, ABLE TO FOLLOW SIMPLE COMMANDS. TRACH TO VENT WITH PRESSURE CONTROL FIO2 40%, P 26, R 22, PEEP 8. O2 SAT ABOVE 93%. SR ON ACCREDITED PHARMACY TECHNICIAN. DIALYSIS AGUILAR CATH WITH PIG TO RIGHT IJ. PERIPHERAL LINE TO RIGHT FOREARM 20G. G TUBE TO FEEDING, NEPRO 40ML/HR FWF 100ML Q6H. RESIDUAL AND PLACEMENT CHECKED. PRESSURE ULCER TO SACRAL AREA, DRESSINGS INTACT. GENERALIZED BODY WEAKNESS NOTED. RECTAL TUBE IN PLACE, BROWN LIQUID STOOL NOTED. BILATERAL SIDE RAILS UP, BED IN LOW POSITION, CALL LIGHT WITHIN REACH. POC IS DISCUSSED. WILL CONTINUE TO MONITOR.
[2020-04-14] MEDS: METOPROLOL 25 MG TAB PO SCH ×2 (08:18→22:06)
[2020-04-14] MEDS: LOSARTAN 25 MG TAB PO SCH ×2 (08:19→22:05)
[2020-04-14] MEDS: CHOLECALCIFEROL 1,000 IU TAB NG SCH (08:19)
[2020-04-14] MEDS: PANTOPRAZOLE 40 MG INJ VIAL IVP SCH (08:20)
[2020-04-14] MEDS: MICAFUNGIN SODIUM 100 MG in NACL 0.9% 100 ML IV SCH (08:20)
--- NOTE | 2020-04-14 08:20 | NUR ---
MORNING MEDICATIONS GIVEN. PT. DENIES PAIN. BP 148/78, HR 86. NO SIGNS OF DISTRESS NOTED. WILL CONTINUE TO MONITOR.
[2020-04-14] MEDS: POLYVINYL ALCOHOL 1.4% OP 15 ML SOL OP SCH ×3 (09:11→16:35)
[2020-04-14] MEDS: INSULIN LANTUS 100 UNITS/ML 10 ML VIAL SUBQ SCH (09:15)
--- NOTE | 2020-04-14 10:30 | NUR ---
TUBE FEEDING RESUMED. 10ML RESIDUAL PRESENT FROM G-TUBE, TUBING CLEAR AND ABLE TO FLUSH. NO SIGNS OF DISTRESS NOTED FROM PT. PT. DENIES PAIN. WILL CONTINUE TO MONITOR.
[2020-04-14] MEDS: NACL 0.9% 500 ML IV SCH (11:48)
[2020-04-14] MEDS: EPOETIN ALFA 10,000 UNITS/ML VIAL IV SCH (12:39)
[2020-04-14] MEDS: MEROPENEM 500 MG in NACL 0.9% 50 ML IV SCH (12:44)
--- NOTE | 2020-04-14 13:10 | NUR ---
CONTACTED PHARMACY ABOUT MISSING MEDICATION, ALUMINIUM HYDROXIDE. WILL REFILL IN OMNICELL. WILL CONTINUE TO MONITOR.
[2020-04-14] MEDS: ALBUTEROL SULFATE/IPRATROPIU 3 ML SOL IH SCH ×2 (13:36→19:00)
--- NOTE | 2020-04-14 13:49 | NUR ---
DC PLANNING: CALLED [facility] SPOKE WITH KELLY THE LIAISON REGARDING ACCEPTING PATIENT PER KELLY MATA ISO SUBACUTE BED AT THIS TIME. FAXED. SPOKE WITH CONCHIS AT [facility] AND [facility] , PER JONATHAN AT [facility] CAN NOT TAKE ANY ADMISSION AT THIS TIME PER PUBLIC HEALTH. FAXED [facility] WILL FOLLOW UP. Addendum: 04/15/20 at 1233 by Karuna Shen CM DC PLANNING: FAXED TO [facility] [phone] SPOKE WITH FLORECITA STATED WILL REVIEW THE CASE AND CALL BACK Addendum: 04/15/20 at 1534 by Karuna Shen CM DC PLANNING: CALLED [facility] SPOKE WITH FLORECITA STATED IF PT IS APPLYING FOR IEHP ,CALLED DAUGHTER SELEN [phone] LEFT A MESSAGE IF SHE RECEIVED THE PACKET. CM TO FOLLOW Addendum: 04/16/20 at 1341 by Karuna Shen CM DC PLANNING: CALLED [facility] SPOKE WITH DONNA THE DOT COMPLIANCE COORDINATOR STATED NO FEMALE SUBACUTE BED AND REFEREED TO ONE OF THE [facility] FACILITY . CALLED [phone] CM TO FOLLOW CALLED PT'S DAUGHTER MONIQUE KEYES A MESSAGE. Addendum: 04/16/20 at 1549 by Karuna Shen CM DC PLANNING: SPOKE WITH JOSHUA [phone] DAUGHTER -IN-[place] NOTIFIED HER THAT UNABLE TO REACH SARAHY JO'S DAUGHTER . PER JOSHUA GRANT ONE OF PT'S SON LIVES CLOSE BY TO CHECK IF THE MEDICAL FORM ARRIVED. CM TO FOLLOW Addendum: 04/16/20 at 1617 by Karuna Shen CM DC PLANNING: CALLED SARAHY SAMSON'S DAUGHTER [phone] SPOKE WITH HER WITH ELECTRICAL TRYOUT PERSON NAME ELANA# [id number] PER SARAHY SHE DID RECEIVE THE MEDICAL PACKAGE BUT DIDN'T FILL THE FORM . INSTRUCTED HER TO PICK THE MEDICAL GROUP OF HER CHOICE AND TO CALL THEM. ONCE SHE HAS A POLICY NUMBER TO CALL US. SARAHY VERBALIZED UNDERSTANDING AND WILL CALL BACK TOMORROW CM TO FOLLOW. Addendum: 04/17/20 at 1534 by Karuna Shen CM DC PLANNING CALLED SARAHY SAMSON'S DAUGHTER THROUGH ADDICTION PROFESSIONAL PHONE NAME ZAHRA #[id number] ASKED HER IF SHE APPLY AND CHOSE MEDICAL GROUP PER SARAHY SHE DIDN'T CALL YESTERDAY BUT SHE WILL CALL TODAY AND WILL CALL BACK WITH THE POLICY NUMBER. CM TO FOLLOW Addendum: 04/20/20 at 1145 by Coleen Cooper CM FAXED PATIENTS CLINICALS TO [facility] AND [facility]. WILL FOLLOW UP Addendum: 04/20/20 at 1513 by Ximena Mckeon PER [facility], NO FEMALE BEDS AVAILABLE AT THEIR SUB ACUTE. PER KALA [facility], NO FEMALE BEDS IN THEIR SUBACUTE. PER JONATHAN OF [facility], THEY ARE NOT ACCEPTING ANY PATIENTS AT THIS TIME DUE TO THEY ARE IN QUARANTINE FOR PROBABLY 2 MORE WEEKS PER MELISSA [facility]SON [facility] [phone], NO FEMALE BEDS AND THEY DO NOT DO IN HOUSE DIALYSIS. PER ANTONIO [facility] [phone], THEY DO NOT DO IN HOUSE DIALYSIS. PER IRAM [facility] [phone], NO FEMALE BEDS AT THIS TIME.AND NO IN HOUSE DIALYSIS OF THE MOMENT AND IS IN THE PROCESS OF GETTING CERTIFICATION BUT THE PROCESS TAKES LONG ABOUT 7-8 MONTHS. PER TACOS OF [facility] [phone], DOES NOT TAKE SUB ACUTE DIALYSIS PATIENTS. PER [facility] [phone], THEY DO NOT HAVE THE CAPACITY TO DO IN HOUSE DIALYSIS. FAX NUMBER [phone]. PER HEMA OF [facility] [phone], NO FEMALE BEDS AND UNABLE TO ACCEPT DIALYSIS PATIENT. PER MARYANN DISHTANK OPERATOR AT [facility] [phone], ADMISSION IS WITH ANOTHER CALL AT THIS TIME AND TO CALL BACK LATER. PER CED AT [facility] [phone], THEIR ADMISSION WORKS FROM HOME AND HER NAME IS MELISSA [phone]. PER CED THEY DO NOT DO IN HOUSE DIALYSIS. CONTACTED [facility] [phone] AGAIN, ABLE TO SPEAK TO JULIAN. SHE STATED WITH THE SITUATION RIGHT NOW, THEY ARE NOT ABLE TO ACCEPT NEW PATIENTS. PER EWA AT [facility] ACUTE AND [facility] [phone], THEY ARE NOT ABLE TO TAKE SUB ACUTE DIALYSIS. PER ISABELLA DISHTANK OPERATOR AT [facility] SUB ACUTE UNIT, THEY DO NOT DO IN HOUSE DIALYSIS. PER ANNA OF [facility] [phone], NO IN HOUSE DIALYSIS. CONTACTED [facility] ADULT SUB ACUTE UNIT [phone], ABLE TO SPEAK TO [facility] ADMISSIONS. PER [facility] THEY DO NOT ACCEPT DIALYSIS PATIENTS IN THEIR SUB ACUTE Addendum: 04/20/20 at 1533 by Coleen Cooper FAXED PATIENTS CLINICALS TO [facility], [facility], [facility], AND [facility]. SPOKE WITH CAITLIN AT [facility] THEY HAVE NO AVAILABLE FEMALE BEDS AT THE TIME. FAXED CLINICALS TO KENAN AT [facility] [phone], FAX [phone], STILL UNDER REVIEW. SPOKE WITH KALA AT [facility] [phone], FAX [phone]. SHE STATED THEY CAN ACCEPT THE PATIENTS BUT DO NOT HAVE AN AVAILABLE BED AT THE TIME. I WILL FOLLOW UP TOMORROW. [facility] [phone] FAX [phone] LEFT A VOICEMAIL FOR OPTICIAN MANAGER Addendum: 04/21/20 at 1011 by Karuna Shen CM DC PLANNING: CALLED [facility] SPOKE WITH SUE BENÍTEZ AND [facility] POST ACUTE SPOKE WITH FRANSICO STATED NO FEMALE SUB ACUTE BED AT THIS TIME.CALLED PT'S DAUGHTER LEFT A MESSAGE REGARDING MEDICAL PAPERWORK CM TO FOLLOW. Addendum: 04/21/20 at 1124 by Karuna Shen CM DC PLANNING [facility] WILL [facility] WITH ONE OF SISTERS FACILITY AT [facility], [facility]XED TO [phone] , [facility] , [facility] ,AND [facility]. CM TO FOLLOW
--- NOTE | 2020-04-14 14:00 | NUR ---
PT. REMOVED VENT TUBINGS. REINSERTED VENT INTO PT. V/S 202/93, HR 110, O2 STAT 88%. DR. VOSS AND DR. ALCALA IS AWARE AND IS BY THE BEDSIDE. PT. IS LETHARGIC BUT RESPONSIVE TO PAIN STIMULI. RT IS AWARE. WILL CONTINUE TO MONITOR.
--- NOTE | 2020-04-14 14:15 | NUR ---
V/S RETAKEN 183/87, HR 88, O2STAT 97%. NEW ORDERS TO GIVE HYDRALAZINE PRN BY DR. ALCALA. WILL FOLLOW THROUGH. RT IS BY THE BEDSIDE, O2 IS INCREASED. WILL CONTINUE TO MONITOR.
[2020-04-14] MEDS: hydrALAZINE 20 MG/ML VIAL IVP PRN (14:20)
--- NOTE | 2020-04-14 14:20 | NUR ---
HYDRALAZINE GIVEN. NO SIGNS OF DISTRESS NOTED. PT. CONTINUES TO BE LETHARGIC BUT RESPONSIVE TO PAIN STIMULI. WILL CONTINUE TO MONITOR.
--- NOTE | 2020-04-14 15:45 | NUR ---
REASSESS PT'S V/S. BP 136/88, HR 81, O2STAT 99%. PT. IS ASLEEP AND IN BED. NO SIGNS OF DISTRESS NOTED. WILL CONTINUE TO MONITOR.
--- NOTE | 2020-04-14 15:55 | NUR ---
INCREASED FIO2 TO 70% AFTER ABG RESULTS WERE CALLED TO
--- NOTE | 2020-04-14 16:30 | NUR ---
BLOOD GLUCOSE CHECK WITH VALUE OF 160, 2 UNITS OF INSULIN GIVEN. NO SIGNS OF DISTRESS NOTED. WILL CONTINUE TO MONITOR.
--- NOTE | 2020-04-14 16:38 | NUR ---
P.T. NOTES P.T. RE EVAL COMPLETED; WILL BENEFIT W/ P.T. POST ACUTE STAY.
--- NOTE | 2020-04-14 19:24 | NUR ---
REPORT GIVEN AND PT. ENDORSED TO PM KRISTAL LEE FOR CONTINUITY OF CARE
--- NOTE | 2020-04-14 20:00 | NUR ---
RECEIVED REPORT FROM DAYSAZFT NURSE. PT AWAKE AND ALERT, OPENS EYES SPONTANEOUSLY, WITHDRAWS TO LIGHT TOUCH. NODS HEAD YES AND NO. TRACH TO VENT, ACPC FI02 70% RATE 22 PEEP 8, SATURATIONS 98%, LUNG SOUNDS ARE RHONCHI. SMALL COUGH NOTED WITH BLOODY SECRETIONS AT TRACH. S1S2, SR ON MONITOR. SKIN WARM AND DRY, AFEBRILE. SMALL SCAB AT RIGHT CHEEK AND OPEN SACRAL WOUND. EDEMA NOTED BUE, NONPITTING. GTUBE TO TUBE FEEDING, NEPRO 40ML/HR, FWF 100 Q6H. ACTIVE BOWEL SOUNDS. PT IS INCONTINENT BUT ANURIC.RECTAL TUBE WITH LOOSE BROWN STOOL NOTED. RIGHT WRIST PERIPHERAL IV, 20G, FLUSHED AND PATENT, GOOD BLOOD RETURN, TKO. RIGHT IJ AGUILAR CATH FOR HD WITH PIGTAIL IN PLACE, DRESSING DRY AND INTACT. SCD's IN PLACE. BED LOCKED AND IN LOWEST POSITION. PT ORIENTED TO CALL LIGHT AND TREATMENT PLAN, CALL LIGHT WITHIN REACH. HOB 30 DEGREES,SIDERAILS UP, WILL CONTINUE TO MONITOR.
--- NOTE | 2020-04-14 20:45 | NUR ---
PT HAD PULLED OUT TRACH. DESATTED TO 40% AND STARTED TO MESHA DOWN, HEART RATE IN LOW 50's. PT RECONNECTED TO VENT AND FI02 INCREASED TO 100%. SATURATIONS INCREASED BACK TO 90's SHORTLY, HEART RATE INCREASED TO 120's, BP ELEVATED TO 190/ 89. PT ALERT ALERT AND SHAKING HEAD "NO". RN WITH PATIENT AT BEDSIDE, RECHECKED BP AFTER 10MINUTES, BACK DOWN TO 150/64, HEART RATE BACK TO NSR. SATURATIONS 98% WITH ORIGINAL VENT SETTINGS. RESIDENT MD AWARE OF INCIDENT, RESTRAINTS ORDERED AND APPLIED. CONTINUOUS MONITORING IN PLACE. PT's DAUGHTER IN LAW CAM MADE AWARE. WILL CONTINUE TO MONITOR.
--- NOTE | 2020-04-14 22:01 | NUR ---
RECEIVED REPORT FROM AM SHIFT. PATIENT SEEN AND ASSESSED. PATIENT TRACH TO VENT WITH PORTEX SIZE 7 AND SECURED WITH TRACH TIE. AUSCULTATION REVEALS BILATERAL COARSE BREATH SOUNDS. NOTICED ADEQUATE BILATERAL CHEST RISE AND FALL. PATIENT ON VENT SETTINGS AC/PC 26, R 22, +8, 70% WITH SPO2 OF 98%. FiO2. VENT PLUGGED IN RED OUTLET, HOB > 30 DEGREES, AMBU BAG AT BEDSIDE, AND ALARMS SET AND AUDIBLE. PATIENT IS IN NO RESPIRATORY DISTRESS AT THIS TIME. HHN TX GIVEN ORDERED VIA INLINE AND PATIENT TOLERATED WELL WITH NO ADVERSE REACTION. SUCTION SMALL PINK TINGE THICK SECRETIONS FROM TUBE. AIRWAY IS PATIENT. WILL CONTINUE TO MONITOR PATIENT.
--- NOTE | 2020-04-14 22:10 | NUR ---
PT STABLE, VENT IN PLACE, INTACT, RT AT BEDSIDE FOR TREATMENT, MADE AWARE OF INCIDENT OF PULLING AT TRACH. VENT VISIBLE TO MONITOR. VITALS STABLE. FLACC 0.
--- NOTE | 2020-04-14 22:12 | NUR ---
RN NOTIFIED RT THAT PATIENT DISCONNECTED HERSELF FROM THE VENT. PATIENT DESAT TO 40s. RN WENT IN ROOM TO RECONNECT PATIENT TO THE VENT. SPO2 IMPROVED TO 95%. WILL CONTINUE TO MONITOR PATIENT.
[2020-04-15] VITALS: BP 112/53
--- NOTE | 2020-04-15 00:10 | NUR ---
PATIENT AWAKE AND ALERT. SMILING AT NURSE. RELEASED RESTRAINTS AND ASSESSED SKIN. INTACT, NO INJURIES NOTED. CHECKED GASTRIC RESIDUALS, 5ML. TOLERATING WELL. BLOOD SUGAR 181,COVERED PER SLIDING SCALE. VERIFIED WITH SECOND NURSE. TURNED AND POSITIONED PATIENT. DENIES PAIN.
--- NOTE | 2020-04-15 01:20 | NUR ---
FACETIMED PATIENTS DAUGHTER N LAW CAM. CAM ORIENTED PATIENT TO NOT PULL OUT TRACH. PT TRACKS EYES. CLARIFIED WITH FAMILY THAT PTS PHONE IS DYING AND THERE IS NO DIGITAL ASSET COORDINATOR AVAILABLE ON THIS UNIT. CAM WILL INFORM FAMILY CLOSER TO MUSE TO BRING ONE TO CONTINUE FACETIME VISITS. WILL ENDORSE TO A.M NURSE.
[2020-04-15] MEDS: INSULIN LISPRO SLIDING SCALE 100 UNITS/ML VIAL SUBQ PRN ×4 (01:33→17:02)
[2020-04-15] MEDS: ALBUTEROL SULFATE/IPRATROPIU 3 ML SOL IH SCH ×4 (01:42→19:51)
--- NOTE | 2020-04-15 01:45 | NUR ---
RT DECREASED FI02 TO 65%, PT TOLERATING WELL. SATURATIONS IN 90's.
--- NOTE | 2020-04-15 03:35 | NUR ---
RT DECREASED FI02 TO 50%, SATURATIONS 98%. RT CHANGED TRACH DRESSING/COLLAR.
[2020-04-15 04:00] VITALS: BP 138/60
[2020-04-15] MEDS: BLOOD GLUCOSE MONITORING 1 DEV DEV FS SCH ×6 (04:00→20:18)
[2020-04-15] MEDS: METOCLOPRAMIDE 10 MG/2 ML INJ VIAL IVP SCH ×3 (04:30→20:38)
[2020-04-15] MEDS: ALUMINUM HYDROXIDE 64 MG/ML BOTTLE PO SCH ×3 (04:30→20:37)
--- NOTE | 2020-04-15 04:33 | NUR ---
PATIENT TURNED AND REPOSITIONED, PROVIDED ORAL CARE AND SPONGE BATH. SACRAL WOUND SLIGHTLY OPEN, SMALL SCAB AT CENTER, HEALING. APPLIED ZGUARD AND CHANGED OPTIFOAM DRESSING. APPLIED ZGUARD TO REDNESS AT PERINEAL FOLDS. CHANGED GTUBE DRESSING. CHECKED RESIDUALS, 5 ML. SCHEDULED MEDS GIVEN. RIGHT WRIST PERIPHERAL IV STILL INTACT AND PATENT. RESTRAINTS IN PLACE. BED LOCKED AND IN LOWEST POSITION, HOB 30 DEGREES. NO DISTRESS NOTED.
--- NOTE | 2020-04-15 06:38 | NUR ---
BLOOD SUGAR 171, COVERED WITH 2 UNITS PER SLIDING SCALE. PT STABLE, NO DISTRESS NOTED. SKIN INTACT AT SOFT WRIST RESTRAINT SITE, EXCEPT FOR EDEMA NOTED. SKIN INTACT. RIGHT WRIST PERIPHERAL IV STILL PATENT. RECTAL BAG MILKED, 300ML LOOSE BROWN STOOL NOTED. ACPC FI02 50%, RATE 22, PEEP 8, SATURATIONS 98%. PATIENT DENIES PAIN. REPOSITIONED FOR COMFORT, SCD'S STILL IN PLACE. TUBE FEEDING AT 40ML/HR. BED LOCKED AND IN LOW POSITION, SIDERAILS UP. WILL ENDORSE TO A.M CARE.
--- NOTE | 2020-04-15 06:38 | NUR ---
PATIENT STILL REMAINS ON VENT SUPPORT. FiO2 HAS BEEN TITRATED TO 50%. AIRWAY IS PATENT. EQUAL CHEST RISE AND FALL.TUBE IS SECURED AND INTACT. PATIENT IN NO DISTRESS AT THIS TIME. WILL CONTINUE TO MONITOR.
--- NOTE | 2020-04-15 07:00 | NUR ---
RECIVED PT ON VENT WITH SETTINGS CHARED BREATH SOUNDS PRESENT BILAT CAORSE SXN PT WITH MIN TO MON AMT OFF WHITE SECS TRACH SITE SECURE ANBU BAG AT BEDSIDE VENT PLUGGED INTO RED OUTLET
--- NOTE | 2020-04-15 07:30 | NUR ---
RECEIVED REPORT FROM COAT IRONER HAND NURSE FOR CONTINUITY OF CARE. AOX1, RESPONDS AND OPENS EYES TO NAME, FLACC 0, NO SOB, RESPIRATIONS EVEN AND UNLABORED. TRACH TO VENT ACPC 22 FIO2 70%, PEEP 8, SATURATING WELL. WITH GT TO FEEDING. TOLERATING WELL. RECTAL TUBE INTACT AND PATENT. WITH RIJ DIALYSIS CATH, AND RIGHT WRIST 20G ON SL. WITH SMALL SCAB ON RIGHT CHEEK AND SACRAL OPEN WOUND. CALL LIGHT WITHIN REACH. ISOLATION PRECAUTION OBSERVED. WILL CONT TO MONITOR
[2020-04-15 07:46] LABS: ANION GAP 11.1 (8-16); BASOPHILS # (AUTO) 0.1 K/uL (0.00-0.22); CARBON DIOXIDE 26.4 mmol/L (21-32); CREATININE 3.1 mg/dL (0.6-1.3); EOSINOPHILS # (AUTO) 0.1 K/uL (0-0.4); EOSINOPHILS % (AUTO) 0.8 % (0.0-4.0); HEMATOCRIT 26.7 % (36-48); HEMOGLOBIN 8.2 g/dL (12.0-16.0); LYMPHOCYTES % (AUTO) 9.9 % (20.5-51.1); MEAN CORPUSCULAR HEMOGLOBIN 30 pg (27-31); MEAN CORPUSCULAR HGB CONC 31 g/dL (33-37); MEAN CORPUSCULAR VOLUME 98.9 fL (80-94); MONOCYTES # (AUTO) 0.7 K/uL (0.8-1.0); MONOCYTES % (AUTO) 6.6 % (1.7-9.3); NEUTROPHILS # (AUTO) 8.6 K/uL (1.8-7.7); NEUTROPHILS % (AUTO) 81.7 % (42.2-75.2); PLATELET COUNT (AUTO) 207 K/uL (140-450); POTASSIUM 3.5 mmol/L (3.5-5.1); RED CELL DISTRIBUTION WIDTH 23.5 % (11.6-13.7); WHITE BLOOD COUNT (AUTO) 10.5 K/uL (4.8-10.8)
[2020-04-15 08:00] VITALS: BP 129/68
[2020-04-15] MEDS: MICAFUNGIN SODIUM 100 MG in NACL 0.9% 100 ML IV SCH (09:00)
[2020-04-15] MEDS: CHOLECALCIFEROL 1,000 IU TAB NG SCH (09:00)
[2020-04-15] MEDS: PANTOPRAZOLE 40 MG INJ VIAL IVP SCH (09:00)
[2020-04-15] MEDS: METOPROLOL 25 MG TAB PO SCH ×2 (09:00→20:37)
[2020-04-15] MEDS: POLYVINYL ALCOHOL 1.4% OP 15 ML SOL OP SCH ×3 (09:00→17:03)
[2020-04-15] MEDS: INSULIN LANTUS 100 UNITS/ML 10 ML VIAL SUBQ SCH (09:00)
[2020-04-15] MEDS: LOSARTAN 25 MG TAB PO SCH ×2 (09:00→20:37)
--- NOTE | 2020-04-15 09:45 | NUR ---
GT INTACT AND PATENT WITH RESIDUAL OF 10CC. DUE MORNING MEDS AND DIET SUPPLEMENTS GIVEN VIA GT. BP MEDS HELD DUE TO DIALYSIS. MEDS TOLERATED WELL
[2020-04-15] MEDS: NACL 0.9% 500 ML IV SCH (11:15)
[2020-04-15 12:00] VITALS: BP 138/75
[2020-04-15] MEDS: MEROPENEM 500 MG in NACL 0.9% 50 ML IV SCH (12:00)
--- NOTE | 2020-04-15 12:00 | NUR ---
BLOOD SUGAR 227. COVERAGE GIVEN
--- NOTE | 2020-04-15 12:45 | NUR ---
DIALYSIS FINISHED. WITH 3L OUTPUT. V/S WNL, FLACC 0, NO SOB
--- NOTE | 2020-04-15 15:15 | NUR ---
PT AWAKE IN BED. FLACC 0, RESPIRATIONS ARE EVEN AND UNLABORED. O2SAT 94% ON TRACH TO VENT
--- NOTE | 2020-04-15 15:49 | NUR ---
04/15/20 RD FOLLOW UP COMPLETED PLEASE REFER TO NUTRITION ASSESSMENT UNDER CARE ACTIVITY FOR ESTIMATED NUTRITIONAL NEEDS. 1. CONTINUE NEPRO 1.8 AT GOAL 40 ML/HR WITH PROSOURCE BID AND DIANE BID. START AT 10 ML/HR, INCREASE 10 MLQH -THIS WILL PROVIDE 960 ML OF VOLUME, 1848 CALORIES, 107 GM OF PROTEIN, WHICH MEETS 100% OF ESTIMATED KCAL AND PROTEIN NEEDS 2. CONTINUE FREE WATER FLUSH OF [address] TO FOLLOW-UP 2-3 DAYS, HIGH RISK RITU OG RD
[2020-04-15 16:00] VITALS: BP 159/76
--- NOTE | 2020-04-15 16:30 | NUR ---
PERICARE DONE. MINIMAL URINE OUTPUT. REPOSITIONED Q2HRS BLOOD SUGAR 227. COVERAGE GIVEN
--- NOTE | 2020-04-15 19:02 | NUR ---
PT AWAKE IN BED EYES OPEN AND RESPONDS TO NAME. NO FLACC 0, NO SOB, RESPIRATIONS ARE EVEN AND UNLABORED, ON TRACH TO VENT. WILL ENDORSE TO NEXT SHIFT FOR CONTINUITY OF CARE.
--- NOTE | 2020-04-15 19:15 | NUR ---
RECEIVED REPORT FROM DAY SHIFT NURSE FOR CONTINUITY OF CARE. AOX1, RESPONDS AND OPENS EYES TO NAME, FLACC 0, NO SOB, RESPIRATIONS EVEN AND UNLABORED. PT HAVE GTUBE FEEDING, TOLERATED WELL. RECTAL TUBE INTACT. PT HAVE RIJ DIALYSIS CATH, IV SITE ON R WRIST 20G, SL, PATENT, INTACT, AND ASYMPTOMATIC. TRACH TO VENT ACPC 22 FIO2 70%, PEEP 8, SATURATING WELL. WITH SMALL SCAB ON RIGHT CHEEK AND SACRAL OPEN WOUND. CALL LIGHT WITHIN REACH. ISOLATION PRECAUTION OBSERVED. WILL CONT TO MONITOR
[2020-04-15 20:00] VITALS: BP 155/73
--- NOTE | 2020-04-15 20:08 | NUR ---
RECEIVED REPORT FROM AM SHIFT. PATIENT SEEN AND ASSESSED. PATIENT TRACH TO VENT WITH PORTEX SIZE 7 AND SECURED WITH TRACH TIE. AUSCULTATION REVEALS BILATERAL COARSE BREATH SOUNDS. NOTICED ADEQUATE BILATERAL CHEST RISE AND FALL. PATIENT ON VENT SETTINGS AC/PC 26, R 22, +8, 50% WITH SPO2 OF 96%. VENT PLUGGED IN RED OUTLET, HOB > 30 DEGREES, AMBU BAG AT BEDSIDE, AND ALARMS SET AND AUDIBLE. PATIENT IS IN NO RESPIRATORY DISTRESS AT THIS TIME. HHN TX GIVEN ORDERED VIA INLINE AND PATIENT TOLERATED WELL WITH NO ADVERSE REACTION. SUCTION SMALL ROONEY THICK SECRETIONS FROM TUBE. AIRWAY IS PATIENT. WILL CONTINUE TO MONITOR PATIENT.
--- NOTE | 2020-04-15 20:10 | NUR ---
BS CHECKED, 150. NO INSULIN COVERAGE NEEDED. RESIDUAL CHECKED, 265. HELD TUBE FEEDING. WILL CONTINUE TO MONITOR.
[2020-04-15] MEDS: ACETAMINOPHEN 325 MG TAB PO PRN (20:36)
[2020-04-15] MEDS: MORPHINE SULFATE 2 MG/ML SYR IVP PRN (20:39)
--- NOTE | 2020-04-15 20:40 | NUR ---
GIVEN TYLENOL FOR FEVER 100.3, MORPHINE FOR PAIN FLACC2, GIVEN SCHEDULED MEDS, REGLAN, ALUMINUM HYDROXIDE, LOSARTAN, METOPROLOL, AND HEPARIN MD ORDERED. PT TOLERATED WELL.
--- NOTE | 2020-04-15 22:00 | NUR ---
BT CHECKED, 97.6. PT SLEEPING IN THE BED COMFORTABLY. NO ACUTE DISTRESS NOTED.
--- NOTE | 2020-04-15 22:45 | NUR ---
RESIDUAL 0 NOTED. RESUME G-TUBE FEEDING. PT TOLERATED WELL.
--- NOTE | 2020-04-15 23:21 | NUR ---
TITRATED FiO2 TO 40% WITH SPO2 OF 96%. PT IS IN NO RESPIRATORY DISTRESS AT THIS TIME. WILL CONTINUE TO MONITOR PT.
[2020-04-16] VITALS: BP 96/46
[2020-04-16] MEDS: BLOOD GLUCOSE MONITORING 1 DEV DEV FS SCH ×6 (00:53→20:44)
[2020-04-16] MEDS: INSULIN LISPRO SLIDING SCALE 100 UNITS/ML VIAL SUBQ PRN ×5 (00:54→20:45)
--- NOTE | 2020-04-16 00:56 | NUR ---
BS CHECKED, 239. ADMINISTERED INSULIN SLIDING SCALE. PT TOLERATED WELL.
[2020-04-16] MEDS: ALBUTEROL SULFATE/IPRATROPIU 3 ML SOL IH SCH ×4 (01:42→19:00)
--- NOTE | 2020-04-16 01:48 | NUR ---
HHN TX GIVEN AT THIS TIME. PT TOLERATED TX WELL WITH NO ADVERSE REACTION. Fi02 TITRATED TO 35% WITH SPO2 OF 98%. PT IS IN NO RESPIRATORY DISTRESS AT THIS TIME. WILL CONTINUE TO MONITOR.
[2020-04-16 04:00] VITALS: BP 135/76
[2020-04-16] MEDS: METOCLOPRAMIDE 10 MG/2 ML INJ VIAL IVP SCH ×3 (04:03→20:30)
[2020-04-16] MEDS: ALUMINUM HYDROXIDE 64 MG/ML BOTTLE PO SCH ×3 (04:04→20:28)
--- NOTE | 2020-04-16 04:41 | NUR ---
GIVEN REGLAN, ALUMINUM HYDROXIDE, AND HEPARIN. BS CHECKED, 157. ADMINISTERED INSULIN SLIDING SCALE. PT TOLERATED WELL. VS CHECKED, WITHIN PT'S BASELINE.
[2020-04-16] MEDS: NACL 0.9% 500 ML IV SCH (06:15)
--- NOTE | 2020-04-16 06:27 | NUR ---
PATIENT STILL REMAINS ON VENT SUPPORT. FiO2 HAS BEEN TITRATED TO 35%. AIRWAY IS PATENT. EQUAL CHEST RISE AND FALL.TUBE IS SECURED AND INTACT. PATIENT IN NO RESPIRATORY DISTRESS AT THIS TIME. WILL CONTINUE TO MONITOR.
--- NOTE | 2020-04-16 06:56 | NUR ---
PT IN STABLE CONDITION. WILL ENDORSE TO DAY SHIFT NURSE FOR CONTINUOUS CARE.
--- NOTE | 2020-04-16 07:15 | NUR ---
RECEIVED PATIENT FROM NIGHT NURSE. PATIENT AOX1. RESPONDS TO NAME. NO NOTED DISTRESS AT THIS TIME. RESP EVEN AND UNLABORED. CONTINUE ON TRACH TO VENT VENTING WELL. GTUBE IN PLACE. RECTAL TUBE INTACT. IV SITE ON RIGHT WRIST 20G AND RIGHT IJ FOR DIALYSIS. CALL LIGHT WITHIN REACH. ISOLATION PRECAUTION OBSERVED. WILL CONTINUE WITH CARE.
[2020-04-16 07:17] LABS: BASOPHILS # (AUTO) 0.1 K/uL (0.00-0.22); BASOPHILS % (AUTO) 0.8 % (0.0-2.0); EOSINOPHILS % (AUTO) 0.4 % (0.0-4.0); HEMATOCRIT 26.5 % (36-48); HEMOGLOBIN 8.2 g/dL (12.0-16.0); LYMPHOCYTES # (AUTO) 1.2 K/uL (2.5-16.5); LYMPHOCYTES % (AUTO) 12.6 % (20.5-51.1); MEAN CORPUSCULAR HEMOGLOBIN 31 pg (27-31); MEAN CORPUSCULAR HGB CONC 31 g/dL (33-37); MEAN CORPUSCULAR VOLUME 98.7 fL (80-94); MONOCYTES # (AUTO) 0.5 K/uL (0.8-1.0); MONOCYTES % (AUTO) 5.7 % (1.7-9.3); NEUTROPHILS # (AUTO) 7.7 K/uL (1.8-7.7); NEUTROPHILS % (AUTO) 80.5 % (42.2-75.2); PLATELET COUNT (AUTO) 229 K/uL (140-450); RED BLOOD CELL COUNT(AUTO) 2.68 MIL/uL (4.20-5.40); RED CELL DISTRIBUTION WIDTH 23.1 % (11.6-13.7); WHITE BLOOD COUNT (AUTO) 9.6 K/uL (4.8-10.8)
[2020-04-16 07:30] LABS: ANION GAP 8.5 (8-16); CARBON DIOXIDE 28.6 mmol/L (21-32); CREATININE 2.2 mg/dL (0.6-1.3); POTASSIUM 3.1 mmol/L (3.5-5.1)
[2020-04-16 07:32] LABS: MAGNESIUM 1.8 mg/dL (1.8-2.4); PHOSPHORUS 4.4 mg/dL (2.5-4.9)
[2020-04-16 08:00] VITALS: BP 146/68
[2020-04-16] MEDS: MICAFUNGIN SODIUM 100 MG in NACL 0.9% 100 ML IV SCH (09:26)
[2020-04-16] MEDS: CHOLECALCIFEROL 1,000 IU TAB NG SCH (09:27)
[2020-04-16] MEDS: PANTOPRAZOLE 40 MG INJ VIAL IVP SCH (09:27)
[2020-04-16] MEDS: LOSARTAN 25 MG TAB PO SCH ×2 (09:28→20:28)
[2020-04-16] MEDS: METOPROLOL 25 MG TAB PO SCH ×2 (09:28→20:27)
[2020-04-16] MEDS: INSULIN LANTUS 100 UNITS/ML 10 ML VIAL SUBQ SCH (09:30)
--- NOTE | 2020-04-16 09:40 | NUR ---
MORNING ROUTINE MEDICATIONS GIVEN VIA GTUBE. PATIENT RESPONDED TO NAME. RESIDUAL CHECK OF LESS THAN 10ML. BP 146/68 HR 80. O2SAT 93% ON ROOM AIR. RESP EVEN AND UNLABORED. RIGHT WRIST IV INTACT AND PATENT. NO NOTED DISTRESS AT THIS TIME. FLACC-0. BILATERAL RESTRAINTS IN PLACE. GTUBE IN PLACE, TOLERATED MEDICATIONS WELL. CALL LIGHT WITHIN REACH. WILL CONTINUE TO MONITOR.
[2020-04-16] MEDS: POLYVINYL ALCOHOL 1.4% OP 15 ML SOL OP SCH ×3 (09:56→17:18)
[2020-04-16] MEDS: EPOETIN ALFA 10,000 UNITS/ML VIAL IV SCH (11:21)
[2020-04-16] MEDS: MEROPENEM 500 MG in NACL 0.9% 50 ML IV SCH (11:23)
[2020-04-16] MEDS ORDERED: POTASSIUM CHLORIDE 40 MEQ, LIDOCAINE MPF 1% 25 MG in NACL 0.9% 250 ML IV SCH (11:30)
--- NOTE | 2020-04-16 11:50 | NUR ---
BLOOD GLUCOSE 179, COVERAGE GIVEN PER SLIDING SCALE. RESP EVEN AND UNLABORED. 97.8 69 22 145/72 95% TRACH TO VENT. GTUB IN PLACE, PATIENT TOLERATING FEEDING WELL. NO NOTED DISTRESS. NO FACIAL GRIMACE. PATIENT RESPONDS TO NAME AND NODS UNDERSTANDING. BED IN LOW POSITION. WILL CONTINUE TO MONITOR. BILATERAL RESTRAINTS IN PLACE.
[2020-04-16 12:00] VITALS: BP 145/72
[2020-04-16 16:00] VITALS: BP 163/76
[2020-04-16] MEDS: MORPHINE SULFATE 2 MG/ML SYR IVP PRN (16:24)
--- NOTE | 2020-04-16 16:30 | NUR ---
BLOOD GLUCOSE 200, COVERAGE GIVEN PER SLIDING SCALE. FACIAL GRIMACE NOTED. BP 163/76 HR 84. PATIENT NODDED WHEN ASKED IF SHE WAS FEELING PAIN. MORPHINE GIVEN PRN ORDERED. WILL CONTINUE TO MONITOR. RESP EVEN AND UNLABORED. TRACH TO VENT.
--- NOTE | 2020-04-16 17:09 | NUR ---
CONTINUED TO MONITOR PT ON VENT WITH SETTINGS CHARTED BREATH SOUNDS PRESENT BILAT COARSE SXN PT WITH MIN TO MOD AMT REDDISH TRACH SITE SECURE AMBU BNAG AT BEDSIDE VENT PLUGGED INTO RED OUTLET
--- NOTE | 2020-04-16 17:35 | NUR ---
VENT ALARM FOR DISCONNECTION WENT OFF. PATIENT PULLED OUT HER TRACH. RT WAS CALLED. TRACH WAS RECONNECT. PATIENT STABLE. BILATER RESTRAINTS REENFORCED.
--- NOTE | 2020-04-16 19:25 | NUR ---
PATIENT IS RESTING COMFORTABLY IN BED. NO NOTED DISTRESS. FLACC-0. ENDORSED TO NIGHT NURSE. PATIENT IN STABLE CONDITION
--- NOTE | 2020-04-16 19:27 | NUR ---
RECEIVED REPORT FROM AM SHIFT NURSE. PATIENT ON TELE MONITOR. AWAKE AND ALERT TO NAME. SHE IS ON TRACH TO VENT WITH O2 SAT AT 99%. GTUBE INTACT, RECTAL TUBE IN PLACE. IV FLUIDS RUNNING WITH RIGHT WRIST IV INTACT. RIGHT IJ INTACT. PATIENT RESTRAINTS IN PLACE, NO S/S OF DISTRESS OBSERVED. BED IN LOW POSITION AND CALL LIGHT WITHIN REACH, ALL SAFETY MEASURES IN PLACE. WILL CONTINUE TO MONITOR PATIENT.
[2020-04-16 20:00] VITALS: BP 161/84
--- NOTE | 2020-04-16 21:00 | NUR ---
PATIENT AWAKE IN BED, MEDICATION GIVEN VIA GTUBE AND SUB Q, TOLERATE WELL. RESIDUAL CHECK FOR GTUBE 5ML. PATIENT RESTRAINTS IN PLACE WITHOUT COMPLICATIONS AND CIRCULATION GOOD. WILL CONTINUE TO MONITOR PATIENT. BED IN LOW POSITION AND CALL LIGHT WITHIN REACH
--- NOTE | 2020-04-16 22:13 | NUR ---
PATIENTS FAMILY CALLED TO GET AN UPDATE ON PATIENT, THEY WILL ALSO CALL BACK IN THE AM
--- NOTE | 2020-04-16 22:53 | NUR ---
REPOSITIONED, CLEAN AND DRY. PATIENT AWAKE, NO S/S OF DISTRESS NOTED, FLACC 0. RESTRAINTS IN PLACE WITH CIRCULATION GOOD. WILL CONTINUE TO MONITOR.
[2020-04-17] VITALS (11 sets, daily range): BP systolic 119–205; BP diastolic 59–148
[2020-04-17] MEDS: BLOOD GLUCOSE MONITORING 1 DEV DEV FS SCH ×6 (00:32→20:00)
[2020-04-17] MEDS: INSULIN LISPRO SLIDING SCALE 100 UNITS/ML VIAL SUBQ PRN ×3 (00:40→22:46)
--- NOTE | 2020-04-17 00:45 | NUR ---
BLOOD GLUCOSE 216, COVERED PER SLIDING SCALE. PATIENT TOLERATED WELL.
[2020-04-17] MEDS: ALBUTEROL SULFATE/IPRATROPIU 3 ML SOL IH SCH ×4 (01:00→19:16)
--- NOTE | 2020-04-17 01:05 | NUR ---
ROUNDS DONE, PATIENT SLEEPING AT THIS TIME, CONTINUES ON TRACH TO VENT, FEEDING AND IV RUNNING WITHOUT COMPLICATIONS. PATIENT APPEARS TO BE IN NO DISTRESS AT THIS TIME. WILL CONTINUE TO MONITOR
--- NOTE | 2020-04-17 03:30 | NUR ---
PATIENT AWAKE, FLACC 0, PATIENT ALSO SHAKES HE HEAD NO WHEN ASKED ABOUT PAIN. SOFT TIE WRIST RESTRAINTS IN PLACE, CIRCULATION GOOD, WILL CONTINUE TO MONITOR PATIENT. CALL LIGHT WITHIN REACH AND BED IN LOW POSITION.
[2020-04-17] MEDS: METOCLOPRAMIDE 10 MG/2 ML INJ VIAL IVP SCH ×3 (04:26→20:49)
[2020-04-17] MEDS: ALUMINUM HYDROXIDE 64 MG/ML BOTTLE PO SCH ×3 (04:26→20:49)
--- NOTE | 2020-04-17 07:26 | NUR ---
REPORT GIVEN TO AM SHIFT NURSE FOR CONTINUITY OF CARE. PATIENT IS IN STABLE CONDITION AT THIS TIME. BED IN LOW POSITION AND CALL LIGHT WITHIN REACH
--- NOTE | 2020-04-17 07:27 | NUR ---
RECEIVED REPORT FROM TORTS LAW PROFESSOR NURSE. PATIENT LYING DOWN IN BED SLEEPING, AROUSABLE BY VOICE. NO DISTRESS NOTED FLACC 0. RESPIRATIONS EVEN, UNLABORED, ON TRACH TO VENT WITH VENT SETTINGS: FIO2:35%. IV SITE INTACT, PATENT, AND INFUSING IVF PER MD ORDERS. GTUBE SITE INTACT, AND ON CONTINUOUS GTUBE FEEDING. RECTAL TUBE IN PLACE. SKIN COLOR APPROPRIATE TO ETHNICITY, WARM TO TOUCH. HAS SACRAL WOUND, DRESSING DRY AND INTACT. REVIEWED PLAN OF CARE WITH PATIENT. REINFORCEMENT NEEDED. SAFETY MEASURES IN PLACE, CALL LIGHT WITHIN REACH. WILL CONTINUE TO MONITOR.
[2020-04-17 08:02] LABS: MAGNESIUM 1.9 mg/dL (1.8-2.4); PHOSPHORUS 4.8 mg/dL (2.5-4.9)
[2020-04-17 08:04] LABS: ALBUMIN 1.9 g/dL (3.4-5.0); ANION GAP 12.1 (8-16); CARBON DIOXIDE 26.9 mmol/L (21-32); CREATININE 2.9 mg/dL (0.6-1.3); TOTAL BILIRUBIN 0.4 mg/dL (0.0-1.0)
[2020-04-17 08:10] LABS: BASOPHILS # (AUTO) 0.2 K/uL (0.00-0.22); BASOPHILS % (AUTO) 1.2 % (0.0-2.0); EOSINOPHILS # (AUTO) 0.1 K/uL (0-0.4); EOSINOPHILS % (AUTO) 0.9 % (0.0-4.0); HEMATOCRIT 28.6 % (36-48); HEMOGLOBIN 8.7 g/dL (12.0-16.0); LYMPHOCYTES # (AUTO) 1.9 K/uL (2.5-16.5); MEAN CORPUSCULAR HEMOGLOBIN 30 pg (27-31); MEAN CORPUSCULAR HGB CONC 30 g/dL (33-37); MEAN CORPUSCULAR VOLUME 98.2 fL (80-94); MONOCYTES # (AUTO) 0.9 K/uL (0.8-1.0); MONOCYTES % (AUTO) 7.1 % (1.7-9.3); NEUTROPHILS # (AUTO) 10.2 K/uL (1.8-7.7); NEUTROPHILS % (AUTO) 76.8 % (42.2-75.2); PLATELET COUNT (AUTO) 274 K/uL (140-450); RED BLOOD CELL COUNT(AUTO) 2.91 MIL/uL (4.20-5.40); RED CELL DISTRIBUTION WIDTH 22.2 % (11.6-13.7); WHITE BLOOD COUNT (AUTO) 13.2 K/uL (4.8-10.8)
[2020-04-17] MEDS: LOSARTAN 25 MG TAB PO SCH ×3 (09:00→20:48)
[2020-04-17] MEDS: METOPROLOL 25 MG TAB PO SCH ×2 (09:00→20:48)
[2020-04-17] MEDS: INSULIN LANTUS 100 UNITS/ML 10 ML VIAL SUBQ SCH (09:38)
[2020-04-17] MEDS: CHOLECALCIFEROL 1,000 IU TAB NG SCH (09:39)
[2020-04-17] MEDS: PANTOPRAZOLE 40 MG INJ VIAL IVP SCH (09:39)
--- NOTE | 2020-04-17 09:40 | NUR ---
GIVEN SCHEDULED MEDS BY G-TUBE. HELD B/P MEDS DUE TO DIALYSIS. PATIENT TOLERATED WELL. SUCTIONED TRACH FOR EXCESSIVE SECRETION AND TOLERATED WELL. NO COMPLAINT OF PAIN OR DISTRESS OBSERVED. CALL LIGHT PLACED WITHIN REACH. WILL CONTINUE TO MONITOR.
[2020-04-17] MEDS: POLYVINYL ALCOHOL 1.4% OP 15 ML SOL OP SCH ×3 (09:41→17:25)
[2020-04-17] MEDS: MICAFUNGIN SODIUM 100 MG in NACL 0.9% 100 ML IV SCH (09:42)
--- NOTE | 2020-04-17 10:53 | NUR ---
PATIENT IN BED WITH TRACH TO VENT AND AROUSABLE TO VOICE EASILY. RESPIRATION EVEN AND UNLABORED. SUCTIONED MOUTH FOR EXCESSIVE SECRETIONS. PATIENT TOLERATED WELL. DENIES PAIN OR DISCOMFORT. CALL LIGHT PLACED WITHIN REACH. WILL CONTINUE TO MONITOR.
--- NOTE | 2020-04-17 10:54 | NUR ---
WOUND CARE RE-EVALUATION NOTE: PT. NOTICE HAVE GENERAL EDEMA TO HER FACE, TRUNK OF BODY AND EXTREMITIES, PT AWAKE, ALERT . SOFT WRIST RESTRAINT TO BILATERAL WRISTS, SKIN DRY, INTACT., TRACH AND GT GLORY-STOMA SKIN DRY CLEAN AND INTACT. POC DISCUSSED WITH PRIMARY RN AND DR. ALCALA. INTEGUMENTARY: -SACRALCOCCYX PRESSURE INJURY STAGE 1 NON-BLANCHABLE REDNESS 2X2CM -LEFT BUTTOCK BLACK ESCHAR 1.5X2CM, GLORY WOUND SKIN PALE PINK SURROUNDING REDNESS INDICATED FURTHER DAMAGE -MOISTURE ASSOCIATED DERMATITIS GROINS, GLORY-ANAL AND INNER BUTTOCKS, RECTAL TUBE IN PLACE -RIGHT CHEEKS DRY DARK BROWN SCAB 1X2CM, GLORY WOUND SKIN INTACT RECOMMENDATION TO CHANGE LEFT BUTTOCK WOUND CARE TO CLEANSE WITH NS, PAT DRY, APPLY SOAKED 2X2 BETADINE GAUZE TO WOUND BED AND COVER WITH DRY DRESSING QD AND PRN IF SOILING
[2020-04-17] MEDS: NACL 0.9% 500 ML IV SCH (11:15)
[2020-04-17] MEDS: MEROPENEM 500 MG in NACL 0.9% 50 ML IV SCH (12:49)
--- NOTE | 2020-04-17 12:49 | NUR ---
PATIENT IN BED SLEEPING AND AROUSABLE TO VOICE EASILY. SUCTIONED TRACH FOR EXCESSIVE SECRETIONS. PATIENT TOLERATED WELL. ADMINISTERED SCHEDULED MEDS ORDERED. PATIENT TOLERATED WELL. G-TUBE SITE AND IV SITE INTACT NOTED. REPOSITIONED PATIENT. DENIES PAIN OR DISCOMFORT. CALL LIGHT PLACED WITHIN REACH. WILL CONTINUE TO MONITOR.
[2020-04-17] MEDS: GAUZE TP SCH (13:01)
[2020-04-17] MEDS: FOAM DRESSING TP SCH (13:01)
--- NOTE | 2020-04-17 14:00 | NUR ---
HEMODIALYSIS STARTED AT 1400. PATIENT TOLERATED WELL. NO COMPLAINT OF PAIN OR DISTRESS OBSERVED. WILL CONTINUE TO MONITOR.
--- NOTE | 2020-04-17 15:12 | NUR ---
PATIENT CONTINUED HEMODIALYSIS AND TOLERATED WELL. DIALYSIS NURSE STAYS WITH PATIENT. DENIES PAIN OR DISCOMFORT. CALL LIGHT PLACED WITHIN REACH. WILL CONTINUE TO MONITOR.
--- NOTE | 2020-04-17 15:29 | NUR ---
04/17/20 RD FOLLOW UP COMPLETED PLEASE REFER TO NUTRITION ASSESSMENT UNDER CARE ACTIVITY FOR ESTIMATED NUTRITIONAL NEEDS. 1. CONTINUE NEPRO 1.8 AT GOAL 40 ML/HR WITH PROSOURCE BID AND DIANE BID -THIS WILL PROVIDE 960 ML OF VOLUME, 1848 CALORIES, 107 GM OF PROTEIN, WHICH MEETS 100% OF ESTIMATED KCAL AND PROTEIN NEEDS 2. CONTINUE FREE WATER FLUSH OF [address] TO FOLLOW-UP 2-3 DAYS, HIGH RISK RITU OG, RONEY
--- NOTE | 2020-04-17 17:23 | NUR ---
PATIENT CONTINUES ON HEMODIALYSIS AND TOLERATED WELL. DENIES PAIN OR DISTRESS. CALL LIGHT PLACED WITHIN REACH. WILL CONTINUE TO MONITOR.
--- NOTE | 2020-04-17 19:17 | NUR ---
GAVE REPORT TO ORCHID GROWER NURSE FOR CONTINUITY OF CARE. PATIENT IN STABLE CONDITION.
--- NOTE | 2020-04-17 19:20 | NUR ---
RECEIVED BEDSIDE REPORT FROM DAY SHIFT NURSE. PATIENT IS AWAKE AND COOPERATIVE. RESPIRATION EVEN UNLABORED ON TRACH TO VENT. NO DISTRESS NOTED. SKIN IS WARM AND DRY. IV PATENT AND INTACT. PLAN OF CARE WAS DISCUSSED. ALL SAFETY MEASURES IN PLACE. BED IS AT LOW POSITION. CALL LIGHT WITHIN REACH. WILL CONTINUE TO MONITOR.
--- NOTE | 2020-04-17 20:05 | NUR ---
INITIAL ASSESSMENT DONE. VITALS WERE TAKEN. CHECKED G-TUBE RESIDUAL. OBTAINED 5CC. RECTAL BAG NOTED. RESTRAINT NOTED. WILL CONTINUE TO MONITOR.
--- NOTE | 2020-04-17 20:50 | NUR ---
ALL SCHEDULED MEDS WERE GIVEN PER ORDER. NO ASE NOTED. WILL CONTINUE TO MONITOR.
--- NOTE | 2020-04-17 22:45 | NUR ---
CHECKED PATIENT. PATIENT SLEEPING RESPIRATION EVEN UNLABORED ON TRACH TO VENT. NO DISTRESS NOTED. WILL CONTINUE TO MONITOR.
[2020-04-18] VITALS (15 sets, daily range): BP systolic 113–193; BP diastolic 44–148
--- NOTE | 2020-04-18 | NUR ---
VITALS WERE TAKEN. PATIENT IN STABLE CONDITION. NO DISTRESS NOTED. WILL CONTINUE TO MONITOR.
[2020-04-18] MEDS: ALBUTEROL SULFATE/IPRATROPIU 3 ML SOL IH SCH ×3 (01:20→13:35)
--- NOTE | 2020-04-18 02:00 | NUR ---
CHECKED PATIENT. PATIENT SLEEPING RESPIRATION EVEN UNLABORED ON TRACH TO VENT. NO DISTRESS NOTED. WILL CONTINUE TO MONITOR.
--- NOTE | 2020-04-18 04:10 | NUR ---
VITALS WERE TAKEN. CLEAN AND CHANGED WOUND DRESSING. PATIENT IN STABLE CONDITION. NO DISTRESS NOTED. WILL CONTINUE TO MONITOR.
[2020-04-18] MEDS: METOCLOPRAMIDE 10 MG/2 ML INJ VIAL IVP SCH ×3 (04:25→21:41)
[2020-04-18] MEDS: ALUMINUM HYDROXIDE 64 MG/ML BOTTLE PO SCH ×3 (04:25→21:40)
[2020-04-18] MEDS: INSULIN LISPRO SLIDING SCALE 100 UNITS/ML VIAL SUBQ PRN ×3 (04:27→16:38)
[2020-04-18] MEDS: BLOOD GLUCOSE MONITORING 1 DEV DEV FS SCH ×6 (04:39→20:49)
--- NOTE | 2020-04-18 07:15 | NUR ---
ENDORSED PATIENT TO DAY SHIFT NURSE. PATIENT IN STABLE CONDITION.
--- NOTE | 2020-04-18 07:17 | NUR ---
RECEIVED BEDSIDE REPORT FROM INSPECTOR FILTER TIP NURSE FLYNN FOR CONTINUITY OF CARE. PT'S EYES OPEN TO VOICE, FLACC 0. RESPIRATION EVEN AND UNLABORED ON TRACH TO VENT, AC/PC, FIO2 50%, RR 22, PEEP 8, SPO2 AT 98%. NO SIGNS OF DISTRESS NOTED. IV ON R WRIST, CLEAN AND INTACT, INFUSING NS 10ML/HR. SKIN CONDITION NOTED, PRESSURE ULCER ON SACRAL, COVERED WITH DRESSING, CLEAN AND DRY; BRUISE IN PURPLISH COLOR ON LEFT LOWER ABDOMEN AREA NOTED, OPEN TO AIR; RIGHT CHEEKS DRY DARK BROWN SCAB OPEN TO AIR. G-TUBE IN PLACE AND RUNNING NEPRO AT 40 ML/HR. RECTAL BAG IN PLACE. SOFT WRIST RESTRAINT ON R WRIST TO PREVENT REMOVING TUBES/LINES, NO SIGNS OF INJURY. PT IS BEDBOUND AND INCONTINENT. ABDOMEN SOFT AND ROUND. SCD ON BILATERALLY. TELE MONITOR IN PLACE. SAFETY MEASURES IN PLACE. BED IN LOW POSITION, WOUND BED ACTIVATED, BED ALARM ACTIVATED, AND HOB ELEVATED 30 DEGREE.
[2020-04-18 07:43] LABS: BASOPHILS # (AUTO) 0.1 K/uL (0.00-0.22); BASOPHILS % (AUTO) 0.9 % (0.0-2.0); EOSINOPHILS # (AUTO) 0.1 K/uL (0-0.4); EOSINOPHILS % (AUTO) 0.8 % (0.0-4.0); HEMATOCRIT 26.6 % (36-48); LYMPHOCYTES % (AUTO) 8.2 % (20.5-51.1); MEAN CORPUSCULAR HEMOGLOBIN 30 pg (27-31); MEAN CORPUSCULAR HGB CONC 30 g/dL (33-37); MEAN CORPUSCULAR VOLUME 97.7 fL (80-94); MONOCYTES # (AUTO) 0.7 K/uL (0.8-1.0); MONOCYTES % (AUTO) 5.4 % (1.7-9.3); NEUTROPHILS # (AUTO) 10.3 K/uL (1.8-7.7); NEUTROPHILS % (AUTO) 84.7 % (42.2-75.2); PLATELET COUNT (AUTO) 276 K/uL (140-450); RED BLOOD CELL COUNT(AUTO) 2.72 MIL/uL (4.20-5.40); RED CELL DISTRIBUTION WIDTH 22.1 % (11.6-13.7); WHITE BLOOD COUNT (AUTO) 12.2 K/uL (4.8-10.8)
[2020-04-18 07:52] LABS: ANION GAP 10.1 (8-16); CARBON DIOXIDE 28.5 mmol/L (21-32); CREATININE 2.1 mg/dL (0.6-1.3); POTASSIUM 3.6 mmol/L (3.5-5.1)
[2020-04-18 07:55] LABS: MAGNESIUM 1.7 mg/dL (1.8-2.4); PHOSPHORUS 3.4 mg/dL (2.5-4.9)
[2020-04-18] MEDS: LOSARTAN 25 MG TAB PO SCH ×2 (08:21→21:45)
[2020-04-18] MEDS: CHOLECALCIFEROL 1,000 IU TAB NG SCH (08:21)
[2020-04-18] MEDS: METOPROLOL 25 MG TAB PO SCH ×2 (08:21→21:45)
[2020-04-18] MEDS: PANTOPRAZOLE 40 MG INJ VIAL IVP SCH (08:21)
[2020-04-18] MEDS: INSULIN LANTUS 100 UNITS/ML 10 ML VIAL SUBQ SCH (08:26)
[2020-04-18] MEDS: MICAFUNGIN SODIUM 100 MG in NACL 0.9% 100 ML IV SCH (08:28)
--- NOTE | 2020-04-18 08:36 | NUR ---
CHECKED BP AND IT'S 181/86 PULSE 94, CHECKED G-TUBE RESIDUAL AND RECEIVED < 5 ML, FLUSH BEFORE AND AFTER MEDS ADMINISTER, MEDICATED WITH AM SCHEDULED BP MEDS AND WILL REASSESS AND MONITOR BP. CHECKED BLOOD GLUCOSE AND RECEIVED 155. ADMINISTERED ALL AM SCHEDULED MEDS, MEDS EDUCATION PROVIDED, REINFORCEMENT NEEDED DUE TO MENTAL STATUS, PT'S EYES OPEN TO VOICE, FLACC 0, RESPIRATION EVEN AND UNLABORED ON AC/PC VENT TO TRACH, SPO2 AT 97%. NO SIGNS OF DISTRESS NOTED. TELE MONITOR ATTACHED. SCD ON BILATERALLY. WOUND BED AND BED ALARM ACTIVATED. SAFETY MEASURES IN PLACE. BED IN LOW POSITION, HOB ELEVATED 30 DEGREE.
--- NOTE | 2020-04-18 08:45 | NUR ---
BLOOD SUGAR CHECKED; BGL: 104, NO COVERAGE NEEDED. PT IS SLEEPING. RESPIRATIONS ARE EVEN AND UNLABORED, BREATHING TRACH TO VENT. NO DISTRESS NOTED. WILL CONTINUE TO MONITOR.
--- NOTE | 2020-04-18 09:44 | NUR ---
REASSESSED BP AND RECEIVED 150/77 PULSE 74. PROVIDED ORAL CARE AND REPOSITIONED PT WITH ASSIST FROM PROCESS INSPECTOR, PT TOLERATED WELL. OFF LOADED PRESSURE WITH PILLOWS AND APPLIED SCD ON BILATERALLY. PT IS RESTING ON BED COMFORTABLY, FLACC 0. RESPIRATION EVEN AND UNLABORED ON TRACH TO VENT AC/PC, SPO2 AT 98%. NO SIGNS OF DISTRESS NOTED. TELE MONITOR ATTACHED. SAFETY MEASURES IN PLACE. HOB ELEVATED 30 DEGREE, BED ALARM AND WOUND BED ACTIVATED, AND BED LOCKED.
[2020-04-18] MEDS: NACL 0.9% 500 ML IV SCH (11:06)
[2020-04-18] MEDS: EPOETIN ALFA 10,000 UNITS/ML VIAL IV SCH (11:06)
--- NOTE | 2020-04-18 11:07 | NUR ---
ADMINISTERED MED EPOETIN PER MD ORDER VIA IVP,MED EDUCATION PROVIDED, REINFORCEMENT NEEDED, PT IS RESTING ON BED. EYES OPEN TO VOICE, FLACC 0, RESPIRATION EVEN AND UNLABORED WITH AC/PC TRACH TO VENT, SPO2 AT 99%. NO SIGNS OF DISTRESS NOTED. TELE MONITOR ATTACHED. SAFETY MEASURES IN PLACE.
--- NOTE | 2020-04-18 11:34 | NUR ---
VITAL SIGNS TAKEN; BP 165/[address] ISRAEL AND NOTIFIED BP ABNORMALITY, DR ISRAEL WAS AWARE AND INSTRUCTED TO MONITOR BP CLOSELY, BUT SHE DOESN'T WANT TO PT'S BP TO DROP; NO ORDER RECEIVED. ALSO MADE DR ISRAEL AWARE THAT MAG 1.7 FROM AM LAB. PER DR ISRAEL, SHE WILL INPUT ORDER TO REPLENISH.
[2020-04-18] MEDS: MEROPENEM 500 MG in NACL 0.9% 50 ML IV SCH (12:03)
--- NOTE | 2020-04-18 12:07 | NUR ---
CHECKED BLOOD GLUCOSE AND RECEIVED 155, ADMINISTERED 2 UNIT OF HUMALOG VIA SUBQ. ADMINISTERED SCHEDULED ANTIBIOTIC MEROPENEM PER MD ORDER VIA IVPB, PT IS RESTING ON BED COMFORTABLY. FLACC 0. RESPIRATION EVEN AND UNLABORED ON TRACH TO VENT, AC/PC. FIO2 35%. NO SIGNS OF ACUTE DISTRESS NOTED. TELE MONITOR ATTACHED. SAFETY MEASURES IN PLACE.
--- NOTE | 2020-04-18 12:56 | NUR ---
DR RUIZ IS ASSESSING AND TALKING TO PATIENT AT BEDSIDE.
[2020-04-18] MEDS: FOAM DRESSING TP SCH (12:57)
[2020-04-18] MEDS: GAUZE TP SCH (13:00)
--- NOTE | 2020-04-18 13:04 | NUR ---
ADMINISTERED SCHEDULED MEDS PER MD ORDER, MEDS EDUCATION PROVIDED AND REINFORCEMENT NEEDED DUE TO MENTAL STATUS. WITH ASSIST FROM FIELD SERVICE SPECIALIST, PROVIDED WOUND CARE, CHANGED DRESSING ON SACRAL AND PAINTED R CHEEK WITH BETADINE TALENT DEVELOPMENT ANALYST. PT TOLERATED WELL. REPOSITIONED AND UPLOADED PRESSURE WITH PILLOWS ON BONY AREA, PT TOLERATED WELL. NO SIGNS OF DISTRESS NOTED. SCD APPLIED BILATERALLY. TELE MONITOR ATTACHED. SAFETY MEASURES IN PLACE. BED IN LOW POSITION, HOB ELEVATED 30 DEGREE, BED ALARM AND WOUND BED ACTIVATED.
[2020-04-18] MEDS ORDERED: MAG SULF 2000 MG/WATER PREMIX 50 ML IV SCH (15:30)
--- NOTE | 2020-04-18 15:35 | NUR ---
ADMINISTERED MAG-SULFATE 2,000 MG VIA IV FOR LOW MAG FROM AM LAB 1.7, MED EDUCATION PROVIDED, AND REINFORCEMENT NEEDED, PT IS AWAKE WITH EYES OPEN LOOKING OUT AT THE WINDOW, FLACC 0, RESPIRATION EVEN AND UNLABORED ON TRACH TO VENT AC/PC FIO2 40%, SPO2 AT 97%, NO SIGNS OF DISTRESS NOTED. TELE MONITOR ATTACHED. SAFETY MEASURES IN PLACE. BED ALARM AND WOUND BED ACTIVATED. SCD ON.
--- NOTE | 2020-04-18 16:08 | NUR ---
CHECKED BLOOD GLUCOSE AND RECEIVED 191, WILL ADMINISTER COVERAGE SHORTLY. VITAL SIGNS TAKEN. PT IS RESTING ON BED COMFORTABLY. FLACC 0. NO SIGNS OF DISTRESS NOTED. TELE MONITOR ATTACHED. SAFETY MEASURES IN PLACE.
--- NOTE | 2020-04-18 16:44 | NUR ---
ADMINISTERED 2 UNITS HUMALOG FOR BLOOD GLUCOSE 191, MED EDUCATION PROVIDED, PT AWAKE AND WATCHING TV ON BED AT THIS TIME. FLACC 0. RESPIRATION EVEN AND UNLABORED ON TRACH TO VENT FIO2 40%, SPO2 AT 97%. NO SIGNS OF DISTRESS NOTED. TELE MONITOR ATTACHED. SAFETY MEASURES IN PLACE.
--- NOTE | 2020-04-18 17:29 | NUR ---
PT'S DAUGHTER IN LAW KJ CALLED PT'S CELLPHONE FOR FACETIME. PT IS FACETIMING WITH DAUGHTER IN LAW. UPDATED KJ WITH PT'S CURRENT CONDITION, AND SHE WAS AWARE. NO SIGNS OF DISTRESS NOTED. TELE MONITOR ATTACHED. SAFETY MEASURES IN PLACE.
--- NOTE | 2020-04-18 19:16 | NUR ---
ENDORSED PT AT BEDSIDE TO EDI ARCHITECT NURSE FOR CONTINUITY OF CARE. PT IS AWAKE WITH BOTH EYES OPEN, FLACC 0, RESPIRATION EVEN AND UNLABORED ON TRACH TO VENT AC/PC, SPO2 AT 98%. NO SIGNS OF DISTRESS NOTED. PT IS IN STABLE CONDITION. TELE MONITOR ATTACHED. SAFETY MEASURES IN PLACE.
--- NOTE | 2020-04-18 19:17 | NUR ---
RECEIVED REPORT FROM DAY SHIFT NURSE. PATIENT IS AA&OX1. RESPIRATIONS ARE EVEN AND UNLABORED ON TRACH TO VENT. SPO2: 98%. SKIN COLOR APPROPRIATE FOR ETHNICITY. RT WRIST 20G IV PATENT AND INTACT. RT IJ AGUILAR CATH NOTED. MULTIPLE WOUNDS NOTED; RT CHEEK SCAB, L FOREARM SCAB, SACRAL PRESSURE ULCER, INCONTINENT DERMATITIS. G-TUBE, G-TUBE FEEDING RUNNING PER ORDERS. RETRO BAG IN PLACE. SOFT WRIST RESTRAINTS IN PLACE; NO SIGNS OF INJURY. REVIEWED PLAN OF CARE. TELE MONITOR ATTACHED. DROPLET PRECAUTIONS IN PLACE. SAFETY MEASURES IN PLACE; BED IN LOW POSITION, CALL LIGHT WITHIN REACH. NO DISTRESS NOTED. WILL CONTINUE TO MONITOR. Addendum: 04/18/20 at 1953 by Essence Mcneal RN *STANDARD PRECAUTIONS*
--- NOTE | 2020-04-18 21:55 | NUR ---
G-TUBE ASPIRATED; 5 ML RESIDUAL, NOTED. SCHEDULED MEDICATION GIVEN. G-TUBE FLUSHED BEFORE AND AFTER MEDICATION ADMINISTRATION. FEEDING RESTARTED AFTER MEDICATION ADMINISTRATION, AND RUNNING PER ORDERS. MEDICATION EDUCATION PROVIDED, PT UNABLE TO COMPREHEND. NO DISTRESS NOTED. SAFETY MEASURES IN PLACE; BED IN LOW POSITION, CALL LIGHT WITHIN REACH. TELE MONITOR ATTACHED. WILL CONTINUE TO MONITOR.
[2020-04-19] VITALS (9 sets, daily range): BP systolic 121–213; BP diastolic 63–106
--- NOTE | 2020-04-19 | NUR ---
BLOOD SUGAR CHECKED; BGL: 115. NO COVERAGE NEEDED.
--- NOTE | 2020-04-19 01:30 | NUR ---
PT IS ASLEEP. RESPIRATIONS EVEN AND UNLABORED BREATHING TRACH TO VENT. SPO2: 97%. NO DISTRESS NOTED. SAFETY MEASURES IN PLACE. TELE MONITOR ATTACHED. WILL CONTINUE TO MONITOR.
--- NOTE | 2020-04-19 02:15 | NUR ---
ASSISTED LUMBER SORTER MACHINE TO CLEAN AND CHANGE PT. NO DISTRESS NOTED. WILL CONTINUE TO MONITOR.
--- NOTE | 2020-04-19 03:45 | NUR ---
G-TUBE ASPIRATED; 5 ML RESIDUAL NOTED. DIANE SUPPLEMENT ADMINISTERED VIA G-TUBE. NEW FEEDING CONTAINER HUNG; FEEDING RUNNING PER ORDERS. WILL CONTINUE TO MONITOR.
[2020-04-19] MEDS: BLOOD GLUCOSE MONITORING 1 DEV DEV FS SCH ×6 (04:00→20:00)
--- NOTE | 2020-04-19 04:00 | NUR ---
BLOOD SUGAR CHECKED; BGL: 126. NO COVERAGE NEEDED.
[2020-04-19] MEDS ORDERED: hydrALAZINE 20 MG/ML VIAL IVP SCH ×2 (04:10→05:30)
--- NOTE | 2020-04-19 04:19 | NUR ---
PT'S BLOOD PRESSURE: 213/106. ORDERED IVP HYDRALAZINE GIVEN. WILL REASSESS BP.
--- NOTE | 2020-04-19 05:19 | NUR ---
REASSESSED PT'S BP. BP: 180/73; PULSE: 80. DR VASQUEZ AWARE.
--- NOTE | 2020-04-19 05:28 | NUR ---
PT'S SCHEDULED MEDICATIONS GIVEN. NO ACUTE DISTRESS NOTED. SAFETY MEASURES IN PLACE. TELE MONITOR ATTACHED. WILL CONTINUE TO MONITOR.
[2020-04-19] MEDS: METOCLOPRAMIDE 10 MG/2 ML INJ VIAL IVP SCH ×3 (05:43→21:27)
[2020-04-19] MEDS: ALUMINUM HYDROXIDE 64 MG/ML BOTTLE PO SCH ×3 (05:43→21:27)
--- NOTE | 2020-04-19 05:56 | NUR ---
IVP HYDRALAZINE ADMINISTERED FOR ELEVATED BP. WILL REASSESS BP.
--- NOTE | 2020-04-19 06:02 | NUR ---
RN AND DR VASQUEZ AWARE OF BP
[2020-04-19 07:07] LABS: MAGNESIUM 2.4 mg/dL (1.8-2.4); PHOSPHORUS 3.9 mg/dL (2.5-4.9)
[2020-04-19 07:14] LABS: ANION GAP 16.5 (8-16); CARBON DIOXIDE 25.7 mmol/L (21-32); CREATININE 2.8 mg/dL (0.6-1.3); POTASSIUM 4.2 mmol/L (3.5-5.1)
[2020-04-19 07:16] LABS: BASOPHILS # (AUTO) 0.2 K/uL (0.00-0.22); BASOPHILS % (AUTO) 1.3 % (0.0-2.0); EOSINOPHILS # (AUTO) 0.3 K/uL (0-0.4); EOSINOPHILS % (AUTO) 1.6 % (0.0-4.0); HEMATOCRIT 29.9 % (36-48); HEMOGLOBIN 9.1 g/dL (12.0-16.0); LYMPHOCYTES # (AUTO) 1.4 K/uL (2.5-16.5); LYMPHOCYTES % (AUTO) 8.5 % (20.5-51.1); MEAN CORPUSCULAR HEMOGLOBIN 30 pg (27-31); MEAN CORPUSCULAR HGB CONC 31 g/dL (33-37); MEAN CORPUSCULAR VOLUME 97.8 fL (80-94); MONOCYTES # (AUTO) 0.9 K/uL (0.8-1.0); MONOCYTES % (AUTO) 5.7 % (1.7-9.3); NEUTROPHILS # (AUTO) 13.2 K/uL (1.8-7.7); NEUTROPHILS % (AUTO) 82.9 % (42.2-75.2); PLATELET COUNT (AUTO) 346 K/uL (140-450); RED BLOOD CELL COUNT(AUTO) 3.06 MIL/uL (4.20-5.40); RED CELL DISTRIBUTION WIDTH 22.3 % (11.6-13.7)
--- NOTE | 2020-04-19 07:29 | NUR ---
GAVE REPORT TO DAY SHIFT NURSE FOR CONTINUITY OF CARE. PT IS IN STABLE CONDITION. SPO2: 94%.
--- NOTE | 2020-04-19 07:33 | NUR ---
RECEIVED REPORT FROM CODING ADVISOR NURSE AT BEDSIDE. PATIENT IS AWAKE AND ALERT, EYES OPEN SPONTANEOUSLY. NONVERBAL. TRACH TO VENT, RESPIRATIONS EVEN AND UNLABORED, NAD. SOFT RESTRAINT ON RIGHT WRIST, NO SIGNS OF INJURY. RT WRIST 20G IV PATENT AND INTACT. RT IJ AGUILAR CATH IN PLACE, C/D/I. MULTIPLE WOUNDS NOTED: RT CHEEK DRY SCAB, L FOREARM SCAB, SACRAL PRESSURE ULCER WITH DRESSING C/D/I. INCONTINENT DERMATITIS. G-TUBE FEEDING INFUSING PER MD ORDERS. RECTAL BAG IN PLACE. BED IN LOW POSITION, CALL LIGHT WITHIN REACH, BEDRAILS UP. WILL CONTINUE TO MONITOR.
[2020-04-19] MEDS: ALBUTEROL SULFATE/IPRATROPIU 3 ML SOL IH SCH ×2 (07:44→19:21)
--- NOTE | 2020-04-19 07:45 | NUR ---
RECEIVED ON A [employer] R860 VENTILATOR WITH COMPRESSOR ON PLUGGED INTO RED OUTLET TOLERATING WELL WITHOUT INCIDENT TO A PORTEX DFEN #7 AIRWAY SECURED WITH A COMPA TRACH TIE CUFF PRESSURE CHECKED NOTED AMBU BAG AT BEDSIDE LOC AWAKE AND ALERT "SMILING ALONG WITH SHAKING WEBSITE DEVELOPER HAND" GOOD CHEST RISE DEEP TRACHEAL SUCTION FOR MODERATE THIN PALE YELLOW SECRETINS AIRWAY PATENT SATURATION 98% ON FIO2 OF 40% POST HHN THERAPY TITRATED FIO2 TO 35% STACY/RN AT BEDSIDE AWARE OF OXYGEN TITRATION
--- NOTE | 2020-04-19 07:57 | NUR ---
RT VELASCO AT BEDSIDE WITH PT
[2020-04-19] MEDS ORDERED: NIFEdipine 60 MG TABER PO SCH (09:00)
[2020-04-19] MEDS: PANTOPRAZOLE 40 MG INJ VIAL IVP SCH (09:02)
[2020-04-19] MEDS: CHOLECALCIFEROL 1,000 IU TAB NG SCH (09:02)
[2020-04-19] MEDS: MICAFUNGIN SODIUM 100 MG in NACL 0.9% 100 ML IV SCH (09:02)
[2020-04-19] MEDS: METOPROLOL 25 MG TAB PO SCH (09:03)
[2020-04-19] MEDS: LOSARTAN 25 MG TAB PO SCH ×2 (09:03→21:28)
[2020-04-19] MEDS: INSULIN LANTUS 100 UNITS/ML 10 ML VIAL SUBQ SCH (09:19)
[2020-04-19] MEDS: INSULIN LISPRO SLIDING SCALE 100 UNITS/ML VIAL SUBQ PRN ×4 (09:21→21:31)
--- NOTE | 2020-04-19 09:53 | NUR ---
AWAKE AND ALERT RESPONSIVE TO STARCHMAKER VERBAL "SMILING" PER IDEAL BODY WEIGHT FORMULA PATIENT PRESENTING WITH EXPIRATORY Vt GREATER THAN 7-8 CC DECREASED INSPIRATORY PRESSURE TO [id number]; DECREASED I/TIME TO 0.65 TO MAINTAIN I/E AT 1:2.0 OR GREATER STARCHMAKER TO MONITOR Addendum: 04/19/20 at 1341 by Low Bush RT 7-8 CC = 7-8 ml
--- NOTE | 2020-04-19 10:18 | NUR ---
STACY/RN NOTIFIED OF VENTILATOR CHANGES
--- NOTE | 2020-04-19 10:20 | NUR ---
STABLE AWAKE AND ALERT EQUAL CHEST RISE TOLERATING VENTILATOR CHANGES NOTED AT 0953 NOTEMAN TO MONITOR
--- NOTE | 2020-04-19 10:39 | NUR ---
RT VELASCO AT BEDSIDE
--- NOTE | 2020-04-19 11:30 | NUR ---
TRANSFERRED TO [facility] ON VENTILATOR WITH OXYGEN CONNECTED TO E-TANK (PSI @ 2000) TOLERATED TRANSFER WELL WITHOUT INCIDENT SATURATION 94% HR 80'S
--- NOTE | 2020-04-19 11:36 | NUR ---
PT IN BED MOVED TO RM 08 AT THIS TIME BY RT VELASCO, MYSELF, AND DAVID SONG
[2020-04-19] MEDS: NACL 0.9% 500 ML IV SCH (11:45)
--- NOTE | 2020-04-19 12:15 | NUR ---
DR. LEX PAGAN REVIEWED VENTILATOR STATUS PER FOREMENTIONED MD CONTINUE TO WEAN Addendum: 04/20/20 at 0851 by Low Bush RT LATE ENTRY
[2020-04-19] MEDS: MEROPENEM 500 MG in NACL 0.9% 50 ML IV SCH (12:17)
--- NOTE | 2020-04-19 12:19 | NUR ---
GOOD CHEST RISE CONTINUES TO MAINTAIN EXPIRATORY Vt GREATER THAN 8 ml/kg PERFORMING ARTS TECHNICIANS WILL CONTINUE TO TITRATE AND MONITOR
--- NOTE | 2020-04-19 13:50 | NUR ---
EQUAL CHEST RISE MAINTAINING EXPIRATORY Vt GREATER THAN 7 ml/kg TITRATED INSPIRATOR PRESSURE TO 22 cmH2O SOCIAL MEDIA MARKETER TO MONITOR
[2020-04-19] MEDS: GAUZE TP SCH (14:02)
[2020-04-19] MEDS: FOAM DRESSING TP SCH (14:02)
--- NOTE | 2020-04-19 14:47 | NUR ---
PT RESTING IN BED, AWAKE & ALERT. HELPED PATIENT TO VIDEO CALL WITH FAMILY. PT DENIES PAIN AT THIS TIME.
--- NOTE | 2020-04-19 17:07 | NUR ---
AWAKE GOOD CHEST RISE DEEP TRACHEAL SUCTION FOR SMALL THICK YELLOW SECRETIONS AIRWAY PATENT PATIENT PRESENTING WITH EXPIRATORY Vt GREATER THAN 7 ml/kg TITRATED INSPIRATORY PRESSURE TO 20 cmH2O Addendum: 04/19/20 at 1720 by Low Bush RT INCREASED FIO2 TO 40% TO KEEP SATURATION GREATER THAN 90%
--- NOTE | 2020-04-19 19:17 | NUR ---
Report to health services managerora Garcia RN for continuity of care. Pt in stable condition. Transfer of care at this time.
--- NOTE | 2020-04-19 19:22 | NUR ---
RECEIVED REPORT FROM AM SHIFT. PATIENT SEEN AND ASSESSED. PATIENT TRACH TO VENT WITH PORTEX SIZE 7 AND SECURED WITH TRACH TIE. AUSCULTATION REVEALS BILATERAL COARSE BREATH SOUNDS. NOTICED ADEQUATE BILATERAL CHEST RISE AND FALL. PATIENT ON VENT SETTINGS AC/PC 20, R 22, +8, 40% WITH SPO2 OF 93%. VENT PLUGGED IN RED OUTLET, HOB > 30 DEGREES, AMBU BAG AT BEDSIDE, AND ALARMS SET AND AUDIBLE. PATIENT IS IN NO RESPIRATORY DISTRESS AT THIS TIME. HHN TX GIVEN ORDERED VIA INLINE AND PATIENT TOLERATED WELL WITH NO ADVERSE REACTION. SUCTION SMALL ROONEY THICK SECRETIONS FROM TUBE. AIRWAY IS PATIENT. WILL CONTINUE TO MONITOR PATIENT.
--- NOTE | 2020-04-19 23:59 | NUR ---
PT HAS BEEN BREATHING IN 30s. DECREASED SET RR ON THE VENT TO 16 BREATHS PER MINUTE TO REDUCE MINUTE VENTILATION. RN AND DR. VASQUEZ WERE INFORMED ABOUT VENT CHANGES. FOLLOW UP ABG ORDERED. WILL CONTINUE TO MONITOR PT.
[2020-04-20] VITALS: BP 158/80
[2020-04-20] MEDS: BLOOD GLUCOSE MONITORING 1 DEV DEV FS SCH ×6 (00:38→21:50)
[2020-04-20] MEDS: INSULIN LISPRO SLIDING SCALE 100 UNITS/ML VIAL SUBQ PRN ×4 (00:39→21:51)
[2020-04-20] MEDS: ALBUTEROL SULFATE/IPRATROPIU 3 ML SOL IH SCH ×4 (01:22→19:39)
[2020-04-20 04:00] VITALS: BP 155/53
[2020-04-20] MEDS: METOCLOPRAMIDE 10 MG/2 ML INJ VIAL IVP SCH ×3 (06:42→20:46)
[2020-04-20] MEDS: ALUMINUM HYDROXIDE 64 MG/ML BOTTLE PO SCH ×3 (06:43→20:44)
--- NOTE | 2020-04-20 06:48 | NUR ---
ABG RESULTS WERE GIVEN TO DR VASQUEZ. SET RR INCREASED BACK TO 22. WILL CONTINUE TO MONITOR
[2020-04-20 06:50] LABS: ANION GAP 14.4 (8-16); CARBON DIOXIDE 24.6 mmol/L (21-32); CREATININE 3.3 mg/dL (0.6-1.3)
[2020-04-20 06:51] LABS: MAGNESIUM 2.6 mg/dL (1.8-2.4)
--- NOTE | 2020-04-20 06:51 | NUR ---
PATIENT STILL REMAINS ON VENT SUPPORT. AIRWAY IS PATENT. EQUAL CHEST RISE AND FALL.TUBE IS SECURED AND INTACT. PATIENT IN NO RESPIRATORY DISTRESS AT THIS TIME. WILL CONTINUE TO MONITOR.
[2020-04-20 07:01] LABS: BASOPHILS # (AUTO) 0.1 K/uL (0.00-0.22); BASOPHILS % (AUTO) 0.6 % (0.0-2.0); EOSINOPHILS # (AUTO) 0.2 K/uL (0-0.4); EOSINOPHILS % (AUTO) 1.1 % (0.0-4.0); HEMATOCRIT 28.7 % (36-48); HEMOGLOBIN 8.8 g/dL (12.0-16.0); LYMPHOCYTES # (AUTO) 0.8 K/uL (2.5-16.5); MEAN CORPUSCULAR HEMOGLOBIN 30 pg (27-31); MEAN CORPUSCULAR HGB CONC 31 g/dL (33-37); MONOCYTES # (AUTO) 0.7 K/uL (0.8-1.0); NEUTROPHILS # (AUTO) 11.9 K/uL (1.8-7.7); NEUTROPHILS % (AUTO) 87.3 % (42.2-75.2); PLATELET COUNT (AUTO) 325 K/uL (140-450); RED BLOOD CELL COUNT(AUTO) 2.96 MIL/uL (4.20-5.40); RED CELL DISTRIBUTION WIDTH 21.4 % (11.6-13.7); WHITE BLOOD COUNT (AUTO) 13.6 K/uL (4.8-10.8)
--- NOTE | 2020-04-20 07:15 | NUR ---
RECEIVED REPORT FROM NIGHT NURSE. PT IN STABLE CONDITION, HOB 30 DEG, RESPIRATIONS EVEN AND UNLABORED ON TRACH TO VENT IN ACPC MODE FIO2 40%, R 22, PEEP 8. NO DISTRESS NOTED. SCHEDULED FOR HD TODAY. R IJ AGUILAR WITH PIGTAIL IN PLACE FOR HD. R FA 20G PATENT AND ASYMPTOMATIC IV IN PLACE TKO. G TUBE IN PLACE WITH FEEDING NEPRO AT 40MLS. SKIN NON-INTACT WITH L BUTTOCKS SCAB AND LEFT CHEEK SCAB. INCONTINENT, RECTAL TUBE IN PLACE. STANDARD ISOLATION. FALL RISK. SAFETY MEASURES IN PLACE. CALL LIGHT WITHIN REACH, BED IN LOW POSITION. WILL CONTINUE TO MONITOR.
--- NOTE | 2020-04-20 07:30 | NUR ---
RECEIVED ON A [employer] R860 VENTILATOR WITH COMPRESSOR ON PLUGGED INTO RED OUTLET TOLERATING WELL TO A PORTEX DFEN #7 AIRWAY SECURED WITH A COMPA TRACH TIE CUFF PRESSURE CHECKED NOTED AMBU BAG AT BEDSIDE LOC AWAKE AND ALERT "SMILING UPON COMPENSATION ASSOCIATE GREETING TO PATIENT" EQUAL CHEST RISE DEEP TRACHEAL SUCTION FOR MODERATE SEMI THICK PALE YELLOW SECRETIONS AIRWAY PATENT EXPIRATORY Vt GREATER THAN 7 ml/kg DECREASED INSPIRATORY PRESSURE TO 18 cmH2O SATURATION 95% ON FIO2 OF 40% DECREASED PEEP TO 5 cmH2O COMPENSATION ASSOCIATE TO MONITOR ANNIA/RN NOTIFIED OF VENTILATOR CHANGES
[2020-04-20 08:00] VITALS: BP 152/72
[2020-04-20] MEDS: INSULIN LANTUS 100 UNITS/ML 10 ML VIAL SUBQ SCH (08:14)
[2020-04-20] MEDS: PANTOPRAZOLE 40 MG INJ VIAL IVP SCH (08:23)
[2020-04-20] MEDS: CHOLECALCIFEROL 1,000 IU TAB NG SCH (08:23)
[2020-04-20] MEDS: LOSARTAN 25 MG TAB PO SCH ×2 (08:23→20:45)
[2020-04-20] MEDS: LABETALOL 200 MG TAB PO SCH (08:24)
--- NOTE | 2020-04-20 08:33 | NUR ---
MEDICATIONS ADMINISTERED PER ORDER, PT TOLERATED WELL. NO DISTRESS NOTED. DENIES PAIN. OFFERED BLANKET, PT REFUSED. VAP ORAL CARE GIVEN. RESIDUAL CHECK 5ML, TOLERATING FEEDING. PT REPOSITIONED AT THIS TIME. BLOOD SUGAR 214. WILL CONTINUE TO MONITOR.
[2020-04-20] MEDS: MICAFUNGIN SODIUM 100 MG in NACL 0.9% 100 ML IV SCH (09:00)
--- NOTE | 2020-04-20 10:00 | NUR ---
STABLE RESTING COMFORTABLY NO DISTRESS NOTED GOOD CHEST RISE GOOD CHEST RISE DEEP TRACHEAL SUCTION FOR MODERATE SEMI THICK YELLOW SECRETIONS AIRWAY PATENT
--- NOTE | 2020-04-20 11:02 | NUR ---
PT STARTED ON HEMODIALYSIS AT THIS TIME. NO DISTRESS NOTED. SAFETY MEASURES IN PLACE. RESPIRATIONS EVEN AND UNLABORED ON TRACH TO VENT.
[2020-04-20] MEDS: NACL 0.9% 500 ML IV SCH (11:15)
[2020-04-20 12:00] VITALS: BP 112/55
[2020-04-20] MEDS: CALCIUM ACETATE 667 MG TAB PO SCH ×2 (12:09→16:38)
--- NOTE | 2020-04-20 12:10 | NUR ---
04/20/20 RD FOLLOW UP COMPLETED PLEASE REFER TO NUTRITION ASSESSMENT UNDER CARE ACTIVITY FOR ESTIMATED NUTRITIONAL NEEDS. 1. CONTINUE NEPRO 1.8 AT GOAL 40 ML/HR WITH PRO SOURCE BID AND DIANE BID. START AT 10 ML/HR, INCREASE 10 MLQH -THIS WILL PROVIDE 960 ML OF VOLUME, 1848 CALORIES, 107 GM OF PROTEIN, WHICH MEETS 100% OF ESTIMATED KCAL AND PROTEIN NEEDS 2. CONTINUE FREE WATER FLUSH OF [address] TO FOLLOW-UP 2-3 DAYS, HIGH RISK RITU OG RD
--- NOTE | 2020-04-20 13:10 | NUR ---
PT CONTINUES TO BE DIALYZED IN STABLE CONDITION. WILL CONTINUE TO MONITOR.
[2020-04-20] MEDS: GAUZE TP SCH (13:53)
[2020-04-20] MEDS: FOAM DRESSING TP SCH (13:53)
--- NOTE | 2020-04-20 13:54 | NUR ---
HEMODIALYSIS REMAINS IN PROGRESS SINCE 1100 DIALYSIS MACHINE IN AREA UNABLE TO GET TO VENTILATOR AT THIS TIME STATION CAPTAIN TO ATTEMPT HHN THERAPY PATIENT AND VENTILATOR ASSESSMENT AT A LATER TIME NO DISTRESS NOTED
--- NOTE | 2020-04-20 14:12 | NUR ---
HEMODIALYSIS COMPLETED PER TECH COLLECTED 2 LITERS LOC AWAKE GOOD CHEST RISE DEEP TRACHEAL SUCTION FOR MODERATE THIN YELLOW SECRETIONS AIRWAY PATENT
[2020-04-20] MEDS: MEROPENEM 500 MG in NACL 0.9% 50 ML IV SCH (14:28)
--- NOTE | 2020-04-20 14:48 | NUR ---
PT FINISHED DIALYSIS, 2L OUTPUT. MERREM ADMINISTERED AT THIS TIME. WILL CONTINUE TO MONITOR.
--- NOTE | 2020-04-20 15:40 | NUR ---
POST DIALYSIS SATURATION DESCENDING TO 87% ON FIO2 OF 40% INCREASED FIO2 TO 50% TO KEEP SATURATION GREATER THAN 90% DEEP TRACHEAL SUCTION FOR SMALL THIN YELLOW SECRETIONS AIRWAY PATENT ANNIA/KRISTAL NOTIFIED
[2020-04-20 16:00] VITALS: BP 129/59
--- NOTE | 2020-04-20 17:25 | NUR ---
BLOOD SUGAR CHECKED 159. 2 UNITS HUMALOG GIVEN. PT IN STABLE CONDITION, NO DISTRESS NOTED. RESPIRATIONS EVEN AND UNLABORED ON TRACH TO VENT. VAP ORAL CARE GIVEN. WILL CONTINUE TO MONITOR.
--- NOTE | 2020-04-20 18:44 | NUR ---
PT AWAKE IN BED, NO DISTRESS NOTED. RESPIRATIONS EVEN AND UNLABORED ON TRACH TO VENT. DENIES PAIN. SAFETY MEASURES IN PLACE, CALL LIGHT WITHIN REACH. WILL CONTINUE TO MONITOR.
--- NOTE | 2020-04-20 19:15 | NUR ---
REPORT GIVEN TO NIGHT NURSE FOR CONTINUITY OF CARE.
--- NOTE | 2020-04-20 19:17 | NUR ---
RECEIVED PATIENT IN STABLE CONDITION FROM AM NURSE. PT IS AWAKE, HAS TRACH TO VENT. O2 SAT 100. NO RESPIRATORY DISTRESS NOTED. ON TELE MONITOR. BEDREST WITH BILATERAL SOFT WRIST RESTRAINTS TO PREVENT PULLING OUT TUBINGS. HAS IV FLUIDS INFUSING WELL ON RIGHT WRIST. ON G TUBE FEEDING TOLERATING WELL. RECTAL TUBE IN PLACE. BED IN LOW POSITION, FREQUENT ROUNDS NEEDED. SIDE RAILS UP TIMES 2. CALL LIGHT WITHIN REACH. WILL CONTINUE TO MONITOR.
[2020-04-20 20:00] VITALS: BP 156/76
--- NOTE | 2020-04-20 21:51 | NUR ---
BLOOD SUGAR WAS CHECKED RESULT 168. INSULIN COVERAGE HUMALOG 2 UNITS GIVEN SUBQ.
--- NOTE | 2020-04-20 23:40 | NUR ---
RECTAL TUBE LEAKING. REMOVED AND REPLACED WITH A NEW ONE.
[2020-04-21] VITALS: BP 139/69
[2020-04-21] MEDS: BLOOD GLUCOSE MONITORING 1 DEV DEV FS SCH ×5 (00:58→16:00)
--- NOTE | 2020-04-21 01:00 | NUR ---
SACRAL PRESSURE WOUND AND LEFT BUTTOCKS DRESSING CHANGED. REPOSITIONED FOR COMFORT.
[2020-04-21] MEDS: ALBUTEROL SULFATE/IPRATROPIU 3 ML SOL IH SCH ×3 (02:36→13:56)
--- NOTE | 2020-04-21 03:00 | NUR ---
MADE ROUNDS. PT ASLEEP. NO RESPIRATORY DISTRESS NOTED.
[2020-04-21 04:00] VITALS: BP 153/78
[2020-04-21] MEDS: NACL 0.9% 500 ML IV SCH (04:11)
[2020-04-21] MEDS: METOCLOPRAMIDE 10 MG/2 ML INJ VIAL IVP SCH ×3 (04:16→20:26)
[2020-04-21] MEDS: ALUMINUM HYDROXIDE 64 MG/ML BOTTLE PO SCH ×2 (04:17→12:36)
--- NOTE | 2020-04-21 04:20 | NUR ---
BLOOD SUGAR THIS AM 130. NO INSULIN NEEDED.
--- NOTE | 2020-04-21 04:20 | NUR ---
PT O2 SAT LOW 88%. PT NOT ON RESPIRATORY DISTRESS. RT WAS CALLED . CAME AND CHECKED ON PT. O2 SAT NOW 96%. REPOSITIONED
--- NOTE | 2020-04-21 06:00 | NUR ---
PT REPOSITIONED FOR COMFORT. RECTAL TUBE IN PLACED.
--- NOTE | 2020-04-21 07:15 | NUR ---
RT CAME . O2 SAT SOMETIMES DOWN TO 88 %. 92% WHEN HE CAME. CHANGED FIO2 TO 45 %. O2 SAT UP TO 95%. ENDORSED PT IN STABLE CONDITION TO AM NURSE.
--- NOTE | 2020-04-21 07:17 | NUR ---
RECEIVED BEDSIDE REPORT FROM CERTIFIED INCOME TAX PREPARER NURSE SALVADOR FOR CONTINUITY OF CARE. PT'S EYES OPEN TO VOICE, FLACC 0. RESPIRATION EVEN AND UNLABORED ON TRACH TO VENT, AC/PC, FIO2 50%, RR 22, PEEP 8, SPO2 AT 97%. NO SIGNS OF DISTRESS NOTED. IV ON R WRIST, CLEAN AND INTACT, INFUSING NS 10 ML/HR. SKIN CONDITION NOTED, PRESSURE ULCER ON SACRAL, COVERED WITH DRESSING, CLEAN AND DRY; BRUISE IN PURPLISH COLOR ON LEFT LOWER ABDOMEN AREA NOTED, OPEN TO AIR; RIGHT CHEEKS DRY DARK BROWN SCAB OPEN TO AIR. G-TUBE IN PLACE AND RUNNING NEPRO AT 40 ML/HR. RECTAL BAG IN PLACE. SOFT WRIST RESTRAINT ON R WRIST TO PREVENT REMOVING TUBES/LINES, NO SIGNS OF INJURY. [facility] AGUILAR CATHETER IN PLACE. PT IS BEDBOUND AND INCONTINENT. ABDOMEN SOFT AND ROUND. SCD ON BILATERALLY. TELE MONITOR IN PLACE. SAFETY MEASURES IN PLACE. BED IN LOW POSITION, WOUND BED ACTIVATED, BED ALARM ACTIVATED, AND HOB ELEVATED 30 DEGREE.
[2020-04-21 07:40] LABS: BASOPHILS % (AUTO) 0.4 % (0.0-2.0); EOSINOPHILS # (AUTO) 0.2 K/uL (0-0.4); EOSINOPHILS % (AUTO) 1.4 % (0.0-4.0); HEMATOCRIT 26.6 % (36-48); HEMOGLOBIN 8.2 g/dL (12.0-16.0); LYMPHOCYTES # (AUTO) 0.6 K/uL (2.5-16.5); LYMPHOCYTES % (AUTO) 5.5 % (20.5-51.1); MEAN CORPUSCULAR HEMOGLOBIN 30 pg (27-31); MEAN CORPUSCULAR HGB CONC 31 g/dL (33-37); MEAN CORPUSCULAR VOLUME 97.6 fL (80-94); MONOCYTES # (AUTO) 0.4 K/uL (0.8-1.0); MONOCYTES % (AUTO) 4.1 % (1.7-9.3); NEUTROPHILS # (AUTO) 9.6 K/uL (1.8-7.7); NEUTROPHILS % (AUTO) 88.6 % (42.2-75.2); PLATELET COUNT (AUTO) 294 K/uL (140-450); RED BLOOD CELL COUNT(AUTO) 2.72 MIL/uL (4.20-5.40); RED CELL DISTRIBUTION WIDTH 21.6 % (11.6-13.7); WHITE BLOOD COUNT (AUTO) 10.9 K/uL (4.8-10.8)
[2020-04-21 07:47] LABS: ANION GAP 6.8 (8-16); CARBON DIOXIDE 29.4 mmol/L (21-32); CREATININE 2.4 mg/dL (0.6-1.3); POTASSIUM 3.2 mmol/L (3.5-5.1)
[2020-04-21 07:56] LABS: PHOSPHORUS 3.9 mg/dL (2.5-4.9)
--- NOTE | 2020-04-21 07:58 | NUR ---
CHECKED BLOOD GLUCOSE AND RECEIVED 151, WILL ADMINISTER COVERAGE SHORTLY. PT IS ASLEEP ON BED AND EYES OPEN WHEN SHAKING. NO SIGNS OF ACUTE DISTRESS NOTED. TELE MONITOR ATTACHED. SAFETY MEASURES IN PLACE. WOUND BED AND BED ALARM ACTIVATED.
[2020-04-21 08:00] VITALS: BP 152/82
[2020-04-21] MEDS: INSULIN LANTUS 100 UNITS/ML 10 ML VIAL SUBQ SCH (09:40)
[2020-04-21] MEDS: LABETALOL 200 MG TAB PO SCH (09:40)
[2020-04-21] MEDS: CHOLECALCIFEROL 1,000 IU TAB NG SCH (09:41)
[2020-04-21] MEDS: CALCIUM ACETATE 667 MG TAB PO SCH ×3 (09:41→17:44)
[2020-04-21] MEDS: LOSARTAN 25 MG TAB PO SCH ×2 (09:41→20:26)
[2020-04-21] MEDS: PANTOPRAZOLE 40 MG INJ VIAL IVP SCH (09:42)
[2020-04-21] MEDS: MICAFUNGIN SODIUM 100 MG in NACL 0.9% 100 ML IV SCH (09:43)
--- NOTE | 2020-04-21 09:45 | NUR ---
CHECKED G-TUBE RESIDUAL AND RECEIVED < 5 ML. ADMINISTERED MEDS PER MD ORDER, MEDS EDUCATION PROVIDED AND REINFORCEMENT NEEDED, PT AWAKE AND WITH BOTH EYES OPEN, FLACC 0, RESPIRATION EVEN AND UNLABORED ON TRACH TO VENT FIO2 50%, SPO2 AT 97%. NO SIGNS OF DISTRESS NOTED. TELE MONITOR ATTACHED. SAFETY MEASURES IN PLACE. BED IN LOW POSITION, HOB ELEVATED 30 DEGREE, BED LOCKED, CALL LIGHT WITHIN REACH, BED ALARM AND WOUND BED ACTIVATED.
[2020-04-21 12:00] VITALS: BP 149/77
[2020-04-21] MEDS: EPOETIN ALFA 10,000 UNITS/ML VIAL IV SCH (12:35)
[2020-04-21] MEDS: INSULIN LISPRO SLIDING SCALE 100 UNITS/ML VIAL SUBQ PRN (12:38)
[2020-04-21] MEDS: FOAM DRESSING TP SCH (12:38)
[2020-04-21] MEDS: GAUZE TP SCH (12:38)
--- NOTE | 2020-04-21 12:49 | NUR ---
ADMINISTERED MEDS PER MD ORDER, MEDS EDUCATION PROVIDED, REINFORCEMENT NEEDED. PROVIDED WOUND CARE. PT TOLERATED WELL. NO SIGNS OF DISTRESS NOTED. TELE MONITOR ATTACHED. SAFETY MEASURES IN PLACE.
--- NOTE | 2020-04-21 13:10 | NUR ---
WITH ASSIST FROM CUSTOMER SERVICES SUPERVISOR, REPOSITIONED PATIENT AND OFFLOADED PRESSURE WITH PILLOWS, PT TOLERATED WELL. PROVIDED ORAL HYGIENE CARE. PT IS RESTING ON BED. NO SIGNS OF DISTRESS NOTED. TELE MONITOR ATTACHED. SAFETY MEASURES IN PLACE. BED ALARM ACTIVATED. TELE MONITOR ATTACHED.
[2020-04-21] MEDS ORDERED: POTASSIUM CHLORIDE 40 MEQ, LIDOCAINE MPF 1% 25 MG in NACL 0.9% 250 ML IV SCH (14:00)
--- NOTE | 2020-04-21 14:30 | NUR ---
ADMINISTERED POTASSIUM CHLORIDE FOR LOW K 3.2 FROM AM LAB, MED EDUCATION PROVIDED AND REINFORCEMENT NEEDED, PT IS AWAKE AND EYES OPEN ON BED. FLACC 0. RESPIRATION EVEN AND UNLABORED ON TRACH TO VENT FIO2 50%, SPO2 AT 985 AT THIS TIME. NO SIGNS OF DISTRESS NOTED. TELE MONITOR ATTACHED. SAFETY MEASURES IN PLACE.
--- NOTE | 2020-04-21 15:45 | NUR ---
PT IS RESTING ON BED AT THIS TIME AND AROUSABLE TO VOICE. NO SIGNS OF DISTRESS NOTED. PROVIDED ORAL HYGIENE CARE AND OFFLOADED PRESSURE WITH PILLOWS, PT TOLERATED WELL. TELE MONITOR ATTACHED. SAFETY MEASURES IN PLACE.
[2020-04-21 16:00] VITALS: BP 134/68
--- NOTE | 2020-04-21 16:55 | NUR ---
CHECKED BLOOD GLUCOSE AND RECEIVED 67. NO COVERAGE NEEDED. STARTED A NEW BOTTLE OF NEPRO AND CONTINUE INFUSING PER MD ORDER. NO SIGNS OF DISTRESS NOTED. TELE MONITOR ATTACHED. SAFETY MEASURES IN PLACE.
--- NOTE | 2020-04-21 17:45 | NUR ---
ADMINISTERED MED VIA G-TUBE, FLUSH BEFORE AND AFTER MED ADMINISTER, MED EDUCATION PROVIDED, REINFORCEMENT NEEDED, PT AWAKE WITH BOTH EYES OPEN, FLACC 0, RESPIRATION EVEN AND UNLABORED ON TRACH TO VENT FIO2 50%, SPO2 AT 98%. NO SIGNS OF DISTRESS NOTED. TELE MONITOR ATTACHED. SAFETY MEASURES IN PLACE. BED IN LOW POSITION, HOB ELEVATED 30 DEGREE, AND BED LOCKED. WOUND BED AND BED ALARM ACTIVATED, SCD ON BILATERALLY.
--- NOTE | 2020-04-21 19:17 | NUR ---
ENDORSED PT TO [facility] NURSE MILAGROS FOR CONTINUITY OF CARE. PT IS IN STABLE CONDITION.
--- NOTE | 2020-04-21 19:18 | NUR ---
REPORT RECEIVED FROM AM NURSE AT BEDSIDE. PT IN STABLE CONDITION. AAOX0-1. INTRODUCED SELF TO PT. BOARD UPDATED. FLACC 0. NO SOB TRACH TO VENT. VENT SETTINGS AC P/C FIO2@50%, RR 22, PEEP 5, O2 SATURATION@95%. AFEBRILE. PT HAS RECTAL TUBE. PT HAS GTUBE RUNNING NEPRO@40ML/HR WITH 100ML H20 FLUSH Q6H. PT HAS RESTRAINTS. IV SITE R WRIST 20G RUNNING NS@10ML/HR PATENT AND INTACT. SKIN WARM, DRY, AND NOT INTACT DUE TO MULTIPLE WOUNDS. SEE WOUND NOTES. BED LOCKED IN LOW POSITION. CALL JIMENES WITHIN REACH. SAFETY PRECAUTION IN PLACE. ALL NEEDS MET AT THIS TIME.
--- NOTE | 2020-04-21 20:20 | NUR ---
REPORT GIVEN TO RITU GIRALDO@BEDSIDE. PT IN STABLE CONDITION.
--- NOTE | 2020-04-21 20:30 | NUR ---
RECEIVED REPORT FROM KRISTAL LINARES, PATIENT IS ON TRACH TO VENT, IV FLUIDS RUNNING AND PATENT, RECTAL TUBE IN PLACE. PATIENT IS AWAKE AT THIS TIME. RESTRAINTS INTACT. SCHEDULED MEDS GIVEN. REPOSITIONED AND VITAL SIGNS TAKEN, PATIENT CLEAN AND DRY. WILL CONTINUE TO MONITOR
--- NOTE | 2020-04-21 20:55 | NUR ---
PATIENT REMOVED VENT TUBING WITH RESTRAINTS INTACT, SUDDENLY DESAT AND I ASSISTED PATIENT IMMEDIATELY, CHECK PULSE AND CALLED CODE BLUE AND STARTED CHEST COMPRESSIONS. ALL TEAM MEMBERS RESPONDED. BLOOD SUGAR 182.
--- NOTE | 2020-04-21 20:57 | NUR ---
RESPONDED TO CODE BLUE DUE TO PT DISCONNECTING HERSELF FROM THE VENT PER RN REPORT. PT CODED SEVERE TIMES. PT BECAME STABLE AND WAS TRANSFER TO ICU. IN ICU PT CODED MULTIPLE TIMES. AT APPROXIMATELY 2346, CODE WAS ENDED; PT .
--- NOTE | 2020-04-21 21:42 | NUR ---
PATIENT TRANSFERRED TO ICU BED 1 AT 2141, REPORT GIVEN TO KRISTAL LINARES
--- NOTE | 2020-04-21 21:43 | NUR ---
PT BEING TRANSFERRED FROM TELE BED 108B. REPORT RECEIVED FROM RITU GIRALDO. PT NOT IN STABLE CONDITION.
--- NOTE | 2020-04-21 21:56 | NUR ---
CALLED CODE BLUE FOR PATIENT MINUTES UPON ARRIVAL TO ICU. 4TH CODE TODAY.
[2020-04-21] MEDS ORDERED: NOREPINEPHRINE 4 MG/4 ML VIAL IV ONE ×2 (22:00→22:03)
--- NOTE | 2020-04-21 22:00 | NUR ---
RECIVED CALL FROM DAUGHTER IN LAW KJ HARRY, CHARGE NURSE SHELLEY SPOKE TO FAMILY TO NOTIFY OF TRANSFER TO ICU.
[2020-04-21] MEDS ORDERED: NOREPINEPHRINE 16 MG in DEXTROSE 5% 250 ML IV PRN (22:20)
--- NOTE | 2020-04-21 22:20 | NUR ---
LEVOPHED STARTED FOR HYPOTENSION ON CONTINUOUS DRIP. PROPOFOL ALSO STARTED.
--- NOTE | 2020-04-21 22:30 | NUR ---
5TH CODE CALLED ON PATIENT TONIGHT.
--- NOTE | 2020-04-21 22:40 | NUR ---
LEVOPHED INCREASED TO 9MCG/KG/MIN OR 8.43ML/HR DUE TO HYPOTENSION.
[2020-04-21] MEDS ORDERED: PROPOFOL 1000 MG/100 ML PREMIX 100 ML IV ONE (22:48)
--- NOTE | 2020-04-21 22:50 | NUR ---
PATIENT TRACH REPLACED DUE TO CUFF LEAKING BY MD AND RT.
[2020-04-21] MEDS ORDERED: PROPOFOL 1000 MG/100 ML PREMIX 100 ML IV PRN (23:00)
--- NOTE | 2020-04-21 23:00 | NUR ---
6TH CODE BLUE CALLED ON PATIENT.
--- NOTE | 2020-04-21 23:10 | NUR ---
LEVOPHED INCREASED TO 20MCG/KG/MIN OR 18.75ML/HR PER MD ORDERS.
[2020-04-21] MEDS ORDERED: VASOPRESSIN 20 UNITS in NACL 0.9% 250 ML IV SCH (23:15)
--- NOTE | 2020-04-21 23:40 | NUR ---
PT DESATTING AND HR DECREASING. BLOOD PRESSURE WILL NOT READ. PATIENT APPEARS PALE AND HAS NO PULSE. CODE BLUE CALLED AND COMPRESSIONS STARTED.
--- NOTE | 2020-04-21 23:46 | NUR ---
ER STOPPED THE CODE DUE TO PATIENT EXPIRING. TIME OF CALLED BY @[id number]. ALL COMPRESSIONS STOPPED. NO LONGER ON PRESSORS.
--- NOTE | 2020-04-22 00:30 | NUR ---
[facility] CALLED. BY TAWANDA. THEY WILL NOT BE ACCEPTING ANY DONATIONS FROM THIS PATIENT.
--- NOTE | 2020-04-22 00:45 | NUR ---
[facility] CALLED BACK. SPOKE WITH PRINCESS RONDON AND HE SAID THE [facility] WILL NOT TAKE THIS CASE AT THIS TIME. HE RELEASED THE PATIENT BODY'S TO THE MORTUARY. AFTER THE CERTIFICATE AND MORTUARY DOES A REPORT ON THE PATIENT [facility] OFF[facility] WILL FOLLOW UP AND GIVE A CASE NUMBER.
== END 2020-04-21 23:46 | disposition expired | DRG 5 ==
LOC: MED 08:08 → EEVIPCON 08:08 → MIC 10:00 → MTU 02-13 14:45 → MIC 02-16 11:30 → MTU 04-14 07:00 → MIC 04-21 21:42
PROVIDERS: ADMIT General Practice; ATTEND General Practice
PROC: 5A09357 Assistance with Respiratory Ventilation, Less than 24 Consecutive Hours, Continuous Positive Airway Pressure (ICD-10-PCS; 2020-02-12)
PROC: 02HV33Z Insertion of Infusion Device into Superior Vena Cava, Percutaneous Approach (ICD-10-PCS; 2020-02-16)
PROC: B548ZZA Ultrasonography of Superior Vena Cava, Guidance (ICD-10-PCS; 2020-02-16)
PROC: 5A1955Z Respiratory Ventilation, Greater than 96 Consecutive Hours (ICD-10-PCS; principal; 2020-02-18)
PROC: 02HV33Z Insertion of Infusion Device into Superior Vena Cava, Percutaneous Approach (ICD-10-PCS; 2020-02-27)
PROC: 0JH63XZ Insertion of Tunneled Vascular Access Device into Chest Subcutaneous Tissue and Fascia, Percutaneous Approach (ICD-10-PCS; 2020-03-04)
PROC: 02HV33Z Insertion of Infusion Device into Superior Vena Cava, Percutaneous Approach (ICD-10-PCS; 2020-03-04)
PROC: B5181ZA Fluoroscopy of Superior Vena Cava using Low Osmolar Contrast, Guidance (ICD-10-PCS; 2020-03-04)
PROC: 5A1D70Z Performance of Urinary Filtration, Intermittent, Less than 6 Hours Per Day (ICD-10-PCS; 2020-03-18)
PROC: 0B110F4 Bypass Trachea to Cutaneous with Tracheostomy Device, Open Approach (ICD-10-PCS; 2020-03-19)
PROC: 0DH63UZ Insertion of Feeding Device into Stomach, Percutaneous Approach (ICD-10-PCS; 2020-03-19)
PROC: 30233K1 Transfusion of Nonautologous Frozen Plasma into Peripheral Vein, Percutaneous Approach (ICD-10-PCS; 2020-04-04)
PROC: 30233N1 Transfusion of Nonautologous Red Blood Cells into Peripheral Vein, Percutaneous Approach (ICD-10-PCS; 2020-04-04)
PROC: 0JPWXXZ Removal of Tunneled Vascular Access Device from Lower Extremity Subcutaneous Tissue and Fascia, External Approach (ICD-10-PCS; 2020-04-09)
PROC: 02H633Z Insertion of Infusion Device into Right Atrium, Percutaneous Approach (ICD-10-PCS; 2020-04-13)
PROC: B548ZZA Ultrasonography of Superior Vena Cava, Guidance (ICD-10-PCS; 2020-04-13)
PROC: 0BH17EZ Insertion of Endotracheal Airway into Trachea, Via Natural or Artificial Opening (ICD-10-PCS; 2020-04-15)
PROC: 5A12012 Performance of Cardiac Output, Single, Manual (ICD-10-PCS; 2020-04-21)
DX: U07.1 COVID-19 (principal); I63.9 Cerebral infarction, unspecified; K72.00 Acute and subacute hepatic failure without coma; N17.0 Acute kidney failure with tubular necrosis; E43 Unspecified severe protein-calorie malnutrition; A41.9 Sepsis, unspecified organism; J96.21 Acute and chronic respiratory failure with hypoxia; B49 Unspecified mycosis; T82.7XXA Infection and inflammatory reaction due to other cardiac and vascular devices, implants and grafts, initial encounter; R65.21 Severe sepsis with septic shock; G93.40 Encephalopathy, unspecified; I50.43 Acute on chronic combined systolic (congestive) and diastolic (congestive) heart failure; B37.7 Candidal sepsis; D68.59 Other primary thrombophilia; E87.1 Hypo-osmolality and hyponatremia; Z68.21 Body mass index [BMI] 21.0-21.9, adult; B96.20 Unspecified Escherichia coli [E. coli] as the cause of diseases classified elsewhere; D64.9 Anemia, unspecified; E11.22 Type 2 diabetes mellitus with diabetic chronic kidney disease; E11.65 Type 2 diabetes mellitus with hyperglycemia; E83.39 Other disorders of phosphorus metabolism; E83.42 Hypomagnesemia; E87.6 Hypokalemia; I13.0 Hypertensive heart and chronic kidney disease with heart failure and stage 1 through stage 4 chronic kidney disease, or unspecified chronic kidney disease; I42.9 Cardiomyopathy, unspecified; J12.89 Other viral pneumonia; J96.22 Acute and chronic respiratory failure with hypercapnia; J98.11 Atelectasis; R13.10 Dysphagia, unspecified; Y83.8 Other surgical procedures as the cause of abnormal reaction of the patient, or of later complication, without mention of misadventure at the time of the procedure; Y92.89 Other specified places as the place of occurrence of the external cause; Z86.718 Personal history of other venous thrombosis and embolism; Z99.11 Dependence on respirator [ventilator] status; I16.1 Hypertensive emergency; E02 Subclinical iodine-deficiency hypothyroidism; E78.5 Hyperlipidemia, unspecified; N39.0 Urinary tract infection, site not specified; E66.9 Obesity, unspecified; N18.3 Chronic kidney disease, stage 3 (moderate); D63.1 Anemia in chronic kidney disease; R04.0 Epistaxis; L89.150 Pressure ulcer of sacral region, unstageable; R53.1 Weakness; G81.94 Hemiplegia, unspecified affecting left nondominant side
CPT/HCPCS: 36415; 36600; 70450; 71045; 71250; 74018; 76700; 76705; 76770; 78582; 80048; 80053; 80076; 80202; 81001; 82140; 82150; 82272; 82550; 82553; 82607; 82728; 82746; 82803; 82948; 83036; 83540; 83605; 83615; 83625; 83690; 83735; 83880; 84100; 84300; 84439; 84443; 84484; 85025; 85045; 85379; 85384; 85610; 85651; 85730; 86140; 86160; 86704; 86706; 86708; 86709; 86803; 86886; 86900; 86901; 86920; 87040; 87070; 87075; 87081; 87086; 87186; 87205; 87340; 87420; 87804; 89220; 90935; 93005; 93970; 94002; 94003; 94640; 94660; 94664; 96365; 97110; 97112; 97163-GP; 97164; 97530; 99291; A4330; C1750; C1751; C1758; C9113; J0360; J0696; J0885; J1265; J1450; J1642; J1644; J1650; J1815; J1940; J1956; J2001; J2060; J2185; J2248; J2250; J2270; J2405; J2543; J2597; J2704; J2765; J2916; J2920; J2930; J2997; J3370; J3475; J3480; J3490; J3535; J7030; J7042; J7060; P9016; P9017; P9046; Q0092; Q0163; U0003-CS